=== PATIENT | female | born 1965 | race Caucasian/White ===

== ENCOUNTER → 2018-05-21 09:59 | Outpatient (CLI) | payer BC, SELFPAY ==
--- NOTE | 2018-05-21 10:02 | BI_ITS ---
MAMMOGRAPHY - BILATERAL SCREENING REASON FOR EXAM: Female, 53 years old. Routine annual screening examination. PERTINENT HISTORY: Non-contributory. TECHNIQUE: Digital bilateral breast papi (3D mammographic acquisition) in the CC and MLO projections. 2-D mediolateral oblique (MLO) and craniocaudad (CC) views of both breasts were obtained. CAD: Full Field Digital Mammography with Computer Added Detection was performed. COMPARISON: Comparison is made with prior examination dated December 31, 2016 and February 08, 2015. FINDINGS: Breast Composition: The breasts are extremely dense, which lowers the sensitivity of mammography. There are no dominant masses or suspicious calcifications. No other significant abnormalities are identified. There has been no significant change since the prior study. BI/SCREENING MAMM (CAD), BILAT IMPRESSION: Stable bilateral screening mammogram. Yearly follow-up mammogram recommended. (A) ASSESSMENT CATEGORY: BIRADS Category 1: Negative. A letter regarding these results will be sent to the patient by the facility within 30 days. Approximately 10% of breast cancers are not detected by mammography. A normal mammogram should not delay biopsy of a clinically suspicious abnormality. [id number] Electronically Signed: Yimi Abbasi MD at 10:40 EST Tel [phone], Service support ,
== END ==
PROVIDERS: Family Provider Family Medicine; PCP Family Medicine; Visit Provider Obstetrics & Gynecology
DX: Z12.31 Encounter for screening mammogram for malignant neoplasm of breast (principal)
CPT/HCPCS: 77063; 77067

== ENCOUNTER → 2020-08-25 15:08 | Outpatient (CLI) | payer BC, SELFPAY ==
[2020-08-25 17:56] LABS: Absolute Lymphocyte Count 1.37 X10^3/uL (0.83-4.51); Absolute Neutrophil Count 2.4 X10^3/uL (2.0-7.7); Basophil# 0.02 X10^3/uL; Basophil% 0.5 % (0-1); Eosinophil# 0.02 X10^3/uL; Eosinophils% 0.5 % (0-5); Hemoglobin 13.8 g/dL (12.0-15.0); Lymphocyte # 1.37 X10^3/ul (4.0); Lymphocyte % 31.4 % (19-41); Mean Corp Hgb Conc 32.9 g/dL (32-36); Mean Corpuscular Hgb 32.3 pg (27.0-32.0); Mean Corpuscular Volume 98.4 fL (81-99); Mean Platelet Vol. 11.1 fl (6.2-12.0); Monocyte# 0.52 X10^3/uL; Monocyte% 11.9 % (0-10); NRBC Flagged by Analyzer 0 % (0-5); Neutrophil # 2.43 X10^3/uL (2.7-7.7); Neutrophil % 55.7 % (47-70); Platelet Count 326 K/mm3 (150-450); RBC Distribution Width CV 11.9 % (11.6-14.6); RBC Distribution Width SD 42.7 fl (35.1-43.9); Red Blood Count 4.27 M/mm3 (4.2-5.4); White Blood Count 4.4 K/mm3 (4.4-11.0)
[2020-08-25 18:16] LABS: Thyroid Stim Hormone (TSH) 1.53 uIU/mL (0.358-3.74)
== END ==
PROVIDERS: PCP Family Medicine; Referring Provider Family Medicine; Visit Provider Family Medicine
DX: F32.9 Major depressive disorder, single episode, unspecified (principal)
CPT/HCPCS: 36415; 84443; 85025

== ENCOUNTER 2021-07-06 14:49 | Outpatient (CLI) | payer BC, SELFPAY ==
--- NOTE | 2021-07-06 14:59 | CT_ITS ---
EXAM: CT NECK WITH INTRAVENOUS CONTRAST : 1965 CLINICAL INDICATION: SUPRACLAVICULAR ADENOPATHY TECHNIQUE: Helically acquired images were obtained of the neck with intravenous contrast. This CT exam was performed using one or more of the following dose reduction techniques: automated exposure control, adjustment of the mA and/or kV according to patient size, and/or use of iterative reconstruction technique. This report was created using [employer] report generation technology. CONTRAST: IV 100mL Isovue-370 COMPARISON: None. FINDINGS: NASOPHARYNX: Unremarkable. SUPRAHYOID NECK: Unremarkable. Oropharynx, oral cavity, parapharyngeal space and retropharyngeal space are unremarkable. INFRAHYOID NECK: Unremarkable. The larynx, hypopharynx and supraglottis are unremarkable. SUBMANDIBULAR/PAROTID GLANDS: Unremarkable. Glands are normal in size. THYROID: Unremarkable. No enlarged or calcified nodules. BONES/JOINTS: No acute fracture. SOFT TISSUES: Unremarkable. VASCULATURE: No acute findings. LYMPH NODES: Enlarged left level 4 cervical lymph nodes are noted measuring greater than 1.5 cm in short axis diameter raising the possibility of metastatic disease or lymphoma. LUNG APICES: Unremarkable as visualized. CT/Soft Tissue Neck WITH Contrast IMPRESSION: Enlarged left level 4 cervical lymph nodes which may represent metastatic disease or lymphoma. Individualized dose optimization techniques were used for this CT. at 1539 Reported and signed by: Ben Norris MD Electronically Signed: Ben Norris MD at 15:37 EST Tel , Service support ,
== END 2021-07-06 23:59 | disposition short-term general hospital (02) ==
PROVIDERS: PCP Family Medicine; Referring Provider Family Medicine; Visit Provider Family Medicine
DX: R59.0 Localized enlarged lymph nodes (principal)
CPT/HCPCS: 70491; Q9967

== ENCOUNTER 2021-07-13 12:06 | Outpatient (CLI) | payer BC, SELFPAY ==
[2021-07-13 15:20] LABS: International Normalized Ratio 0.9; Prothrombin Time (Protime)PT. 11.9 SECONDS (11.7-14.9)
== END 2021-07-13 23:59 | disposition short-term general hospital (02) ==
LOC: MFPLAB 12:09
PROVIDERS: PCP Family Medicine; Referring Provider Family Medicine; Visit Provider Family Medicine
DX: R59.0 Localized enlarged lymph nodes (principal)
CPT/HCPCS: 36415; 85610; 85730

== ENCOUNTER 2021-07-19 09:09 | Outpatient (CLI) | payer BC, SELFPAY ==
[2021-07-19] VITALS (9 sets, daily range): BP systolic 92–146; BP diastolic 55–88; PULSE 69–85; RESP 13–24; TEMP 36.8; O2SAT 96–100; BMI 21.8
--- NOTE | 2021-07-19 | ASPIGT_PTH ---
PATIENT: AYDIN HUERTA LOC: CT U#:[id number] AGE/SX: 56/F ROOM: RE07/19/[address]: Dr. Jose Landaverde MD : 1965 BED: DIS: 07/19/2021 SPEC #: [id number] RECD: 07/19/21 11:15 STATUS: LARISA RUIZ #: [id number] CORWIN: 07/19/21 00:[address]: Jose Landaverde DEPT: SURGICAL PATHOLOGY RECD BY: Alfred You Tissues: Lymph node of upper extremity, NOS Procedures: FNA Specimen Adequacy Special Stain Group II Surgery Specimen Level IV Imprint (control) HEADER OPERATION: CT-guided biopsy of lymph node, left side PRE-OP DIAGNOSIS: Supraclavicular adenopathy TISSUE SUBMITTED: Lymph node 18-gauge core x5 MICROSCOPIC DIAGNOSIS Left supraclavicular mass, CT guided core biopsy: B-cell lymphoma. See Comment. AM/am 07/22/21 COMMENT STAT wet prep evaluation done by Dr. Ghosh in CT suite at time of biopsy by radiologist: Touch prep#1: Blood Touch prep#2: Lymphocytes present. Immunohistochemistry ([id number]) supports the above diagnosis. The neoplasm stains with Bcl2 and CD10 and favors a follicle center origin. FLOW analysis reveals a B-cell lymphoma without a specific phenotype (complete report viewable in EMR). MICROSCOPIC DESCRIPTION Slides are reviewed. GROSS DESCRIPTION Received is one container labeled with the patient's name and not further designated. The specimen consists of multiple minute fragments of light sánchez soft tissue that in aggregate measure 1 x <0.1 x <0.1 cm. The specimen is totally submitted in one cassette. / AM:jesse 07/19/2021 TC:0 CPT: 41287, 30368, 56566 ADDENDUM ADDENDUM ADDENDUM ADDENDUM ADDENDUM ADDENDUM ADDENDUM ADDENDUM ADDENDUM ADDENDUM 08/03/2021 12:03 ADDENDUM 08/03/2021 12:03 ADDENDUM 08/03/2021 12:03 ADDENDUM 08/03/2021 12:03 ADDENDUM 08/03/2021 12:03 This addendum is added to incorporate an outside pathology consultation report. The case was examined at [facility] (#[id number]) and the following diagnosis was rendered. Left supraclavicular mass, needle biopsy: Small sample of follicular lymphoma, consistent with follicular lymphoma, grade 1-2. Please see complete above mentioned consultation report in EMR
--- NOTE | 2021-07-19 | IMM_PTH ---
PATIENT: AYDIN HUERTA LOC: CT U#:[id number] AGE/SX: 56/F ROOM: RE07/19/[address]: Dr. Jose Landaverde MD : 1965 BED: DIS: 07/19/2021 SPEC #: [id number] RECD: 07/20/21 12:15 STATUS: LARISA REQ #: [id number] CORWIN: 07/19/21 00:[address]: Jose Landaverde DEPT: IMMUNOHISTOCHEMISTRY RECD BY: Judy Brownlee Tissues: Lymph node, NOS Procedures: BCL-2 (add) BCL-6 (add) CD10 (add) CD138 (add) CD15 (add) CD20 (add) CD23 (add) CD3 (add) CD30 (add) CD45 (add) CD5 (add) CD79A (add) CYCLIN (add) MUM1 (add) Pankeratin (initial) PHYSICIAN & INSTITUTION [place] [id number] SPECIMEN INFORMATION: Tissue Source: Lymph node, supraclavicular Clinical Info: Supraclavicular adenopathy Specimen Number: [id number] CPT code: 90215, 71120 x14 METHODOLOGY: Deparaffinized sections of prefer/formalin-fixed tissue or PAP/DQ stained slides are incubated with monoclonal/polyclonal antibodies/oligonucleotide probes. Localization is made via biotin free immunoperoxidase method. Appropriate controls are performed and reacted as expected. Results on target cell population are indicated in the following table: RESULTS: ANTIBODY / CLONE RESULT AE1-3 (AE1/AE3/PCK26) negative CD3 (PS1) positive CD5 (SP10) positive CD20 (L26) positive CD45 (RP2/18) positive CD79a (11E3) positive CD10 (56C6) positive BCL-2 (bcl-2/100/D5) positive BCL-6 (ZA075H/A8) negative Cyclin D1/BCL-1 (SP4) negative MUM1 (MRQ-43) negative CD30 (Haja-H2) negative CD15 (MMA) negative CD23 (1B12) negative CD138 (B-A38) negative These tests were developed and their performance characteristics determined by [facility]. They may not have been cleared or approved by the U.S. Food and Drug Administration. The FDA has determined that such clearance or approval is not necessary. The above immunohistochemical/dualISH markers are ordered and reviewed by the Pathologist. INTERPRETATION: Lymph node, supraclavicular, Ct-guided biopsy: B-cell lymphoma. See comment Comment: CD10 and BCL2 positivity favor a follicular lymphoma AM:cc 07/22/21
--- NOTE | 2021-07-19 09:13 | CT_ITS ---
PROCEDURE: CT GUIDED biopsy of the left supraclavicular lymph node. DATE: 07/19/2021. INDICATION: Female, 56 years old. Left supraclavicular lymph node. PHYSICIAN: Yimi Abbasi M.D. RADIATION DOSAGE (If Supplied By Facility): CTDIvol = ( 20 ) mGy, DLP = ( 341.13 ) mGycm. Individualized dose optimization techniques were utilized. PROCEDURE: The risks, benefits, and alternatives to the procedure were explained to the patient. The specific risk of hemorrhage requiring further treatment or intervention was detailed and accepted. Follow-up instructions were discussed with the patient as well. Written informed consent was obtained. The patient was brought into the CT suite and placed in the supine position. . An appropriate entry site was identified. The overlying skin was prepped and draped in the usual sterile fashion. 1% lidocaine was administered subcutaneously for local anesthesia. Conscious sedation was performed. Conscious sedation was started at 10:21 AM and terminated at 10:49 AM. The patient was independently monitored by the department nurse. The patient received 1 mg of VERSED and 25 mcg of FENTANYL intravenously. Under CT guidance, a total of 5 passes were performed utilizing a 18-gauge core biopsy needle. The specimens were then placed in the appropriate fluid and transported to the laboratory for analysis. Hemostasis was obtained. The patient tolerated the procedure well without immediate complications. CT/Biopsy/Inj or Needle Placement IMPRESSION: Successful CT guided biopsy of left supraclavicular lymph node, as described above. The conscious sedation protocol was followed. Electronically Signed: Yimi Abbasi MD at 11:16 EST ,
[2021-07-19] MEDS: Midazolam 2 MG/2 ML Syringe IV (10:21)
[2021-07-19] MEDS: fentaNYL 100 MCG/2 ML Ampul IV (10:21)
[2021-07-19] MEDS: Lidocaine 2% (20 ml mdv) 20 ML Vial INFILT (10:30)
== END 2021-07-19 23:59 | disposition home or self-care (01) ==
PROVIDERS: PCP Family Medicine; Referring Provider Family Medicine; Visit Provider Family Medicine
DX: C85.11 Unspecified B-cell lymphoma, lymph nodes of head, face, and neck (principal); R59.0 Localized enlarged lymph nodes
CPT/HCPCS: 38505; 77012; 88172; 88305; 88307; 88313; 88341; 88342; 99156; J7040; A4216

== ENCOUNTER → 2022-06-07 | Outpatient (CLI) | payer BC, SELFPAY ==
--- NOTE | 2022-06-07 13:54 | MRI_ITS ---
EXAM: MR LEFT LOWER EXTREMITY WITHOUT INTRAVENOUS CONTRAST, FOOT CLINICAL INDICATION: LEFT FOOT CAPSULITIS 2ND MTP JOINT TECHNIQUE: Multiplanar and multisequence MR images of the left forefoot without intravenous contrast. Magnetic field strength 1.5 T. This report was created using [employer] report generation technology. COMPARISON: None. FINDINGS: MUSCLES: Unremarkable. No edema or myositis. FLUID: Unremarkable. No joint effusion. PLANTAR FASCIA: Unremarkable. Intact. BONES/JOINTS: Near complete dorsal dislocation of the proximal phalanx of the second toe at the second metatarsal phalangeal joint. Small amount of fluid within the joint space. No fracture. No bone marrow edema. OTHER SOFT TISSUES: Unremarkable. MRI/Lower Ext/No Jt/w/o IMPRESSION: Near complete dorsal dislocation of the proximal phalanx of the second toe at the second metatarsal phalangeal joint with small joint effusion. Electronically Signed: Kirby Bazan MD at 2:18 EST ,
== END | disposition home or self-care (01) ==
LOC: MRI 13:51
PROVIDERS: PCP Family Medicine; Referring Provider Podiatrist; Visit Provider Podiatrist
DX: M25.475 Effusion, left foot (principal); M77.9 Enthesopathy, unspecified
CPT/HCPCS: 73718

== ENCOUNTER 2022-09-22 06:01 | Day surgery (SDC) | payer BC, SELFPAY ==
[2022-09-22 06:21] VITALS: BP 111/66; PULSE 73; RESP 16; TEMP 36.6; O2SAT 99; BMI 21.4
[2022-09-22] MEDS: Lactated Ringers 1,000 ML 15 ML IV (06:28)
--- NOTE | 2022-09-22 07:15 | RAD_ITS ---
STUDY: X-RAY - LEFT FOOT CLINICAL: Female, 57 years old. PAIN TECHNIQUE: 3 view(s) of the foot. COMPARISON: [December 17, 2015 FINDINGS: Normal talus, calcaneus, and tarsal bones. Normal visualized subtalar, talonavicular, calcaneocuboid, tarsal and tarsometatarsal articulations. Normal metatarsi. Normal metatarsophalangeal joint of the great toe. Normal tibial and fibular sesamoid bones. Normal interphalangeal joint of the great toe. Normal phalanges of the great toe. Normal second through fifth metatarsophalangeal joints. Normal interphalangeal joints and phalanges of the lesser toes. The soft tissue structures are unremarkable. Hardware transfixion second phalanges, second metatarsal head, and first and second tarsometatarsal joints. RAD/Foot 2 Views IMPRESSION: These correlate with clinical service Electronically Signed: Kulwant Hummel MD at 20:31 EDT ,
--- NOTE | 2022-09-22 07:30 | BUN_PTH ---
PATIENT: AYDIN HUERTA LOC: [facility] [place] U#:[id number] AGE/SX: 57/F ROOM: RE09/22/[address]: Dr. Benson Sierra DPM : 1965 BED: DIS: 09/22/2022 SPEC #: [id number] RECD: 09/22/22 12:50 STATUS: LARISA JOSEPH #: [id number] CORWIN: 09/22/22 07:[address]: Benson Sierra DEPT: SURGICAL PATHOLOGY RECD BY: Karyna Goldstein ENTERED: 09/22/22 13:04 SP TYPE: BUNION MELVA DR: Dr. Jose Landaverde MD Tissues: Bony tissue, NOS Procedures: Decalcification bone/plaque Surgery Specimen Level III HEADER OPERATION: First transmetatarsal Lap[place]us arthrodesis bunionectomy PRE-OP DIAGNOSIS: Left foot pain TISSUE SUBMITTED: Left bunion MICROSCOPIC DIAGNOSIS Left foot bone bunion, excision: Osseocartilaginous fragment with focal reparative and reactive change consistent with bunion. AM:jesse 09/27/2022 MICROSCOPIC DESCRIPTION Slides are reviewed. GROSS DESCRIPTION Received in fixative is one container labeled with the patient's name and designated left shalini. The specimen consists of a piece of bone measuring 2.0 x 1.5 x 0.3 cm. The entire specimen is submitted in one cassette after decalcification. / EUNICE:jesse 09/22/2022 TC:5 CPT: 90174, 44215
--- NOTE | 2022-09-22 07:32 | DCINST_ITS ---
Discharge Instructions Diet Discharge Diet: Light diet - advance as tolerated Activity Discharge Activity: Use Walker and Use Crutches Weight Bearing Status: No weight bearing (No weightbearing left foot.) Keep extremity elevated above heart level: Left Leg (Keep left foot elevated for at least 50 minutes of every hour.) Dressing / Incision Call your doctor if your incision/area has: Sudden Increased Bleeding and Foul Smelling Discharge Call your doctor if you observe: Fever of 101 or Higher, Shortness of breath, Chest pain, Increased palpitations (irregular heartbeat), Calf discomfort and Uncontrolled pain Change Dressing in: do not change dressing Remove Dressing in: do not remove dressing Cleanse incision/area with: Keep Dressing Clean & Dry Follow Up Care Please Follow Up With: Benson Sierra DPM When: 1 week, sooner if needed. Also ok to take Ibuprofen for pain: take 400mg by mouth every 6 hours as needed for pain. Test Results: Test results from this visit will be discussed in further detail at your follow- up appointment, if applicable. Discharge Plan Admission Attending Provider: Benson Sierra Primary Care Provider: Kushal Landaverde Discharge Orders/Prescriptions Prescriptions: New oxycodone-acetaminophen [Percocet] 5-325 mg tablet 1 - 2 tab PO Q6H PRN (Reason: pain) 5 Days Qty: 24 0RF No Action duloxetine [Cymbalta] 20 mg capsule,delayed release(DR/EC) 20 mg PO DAILY cholecalciferol (vitamin D3) [Vitamin D3] 25 mcg (1,000 unit) Capsule 25 mcg PO DAILY [place] 3 Capsule 1,000 mg PO DAILY Vitamin B-12 1,000 mcg Lozenge 1,000 mcg PO QODAY calcium carbonate [Calcium 600] 600 mg calcium (1,500 mg) Tablet 600 mg PO DAILY ciprofloxacin HCl [Cipro] 500 mg Tablet 500 mg PO BID Referrals / Follow Up: Kushal Landaverde MD [Primary Care Provider] - Disposition Disposition (needs filled in before D/C Order can be placed): Home, Self Care
[2022-09-22] MEDS: Cefazolin 2 GM in 0.9% Normal Saline 100 ML IV (07:40)
[2022-09-22] MEDS: Lidocaine 1% /Epi 1:100 (20ml) 20 ML Vial (07:45)
--- NOTE | 2022-09-22 10:52 | OP.PCM_ITS ---
Report of Operation Date of Procedure: 09/22/22 Pre-Operative Diagnosis: Hallux valgus bunion left Hammer toe left 2nd toe Deformed 2nd metatarsal, left Torn 2nd metatarsal phalangeal plantar plate, left Post-Operative Diagnosis: Same Surgery/Procedure Performed:: 1st tarsometatarsal Lapidus fusion bunionectomy, left 2nd metatarsal osteotomy left foot 2nd toe fusion left Repair of 2nd metatarsal phalangeal joint plantar plate and flexor tendon, left Surgeon: Benson Sierra gear cutting machine set up operator: Alysa Type of Anesthesia: Local and MAC Specimen's removed: Bunion from left 1st metatarsal sent to pathology Estimated Blood Loss (mL): 20mL Description of Procedure: Indications: This is a 57 year old chronic left foot pain despite nonsurgical treatment. Since symptoms persist despite nonsurgical care, we discussed surgical options. Reviewed the procedures, possible benefits vs risks, goals, expectations, and estimated healing time. She expressed understanding and agreement. No guarantees were given nor implied. No warranties were given. Patient freely signed the consent forms and elected to proceed forward with the procedures. Operative procedure: She was brought back into the operating room and was placed on the operating room table in the supine position. A timeout was performed and the patient was properly identified and the surgical plan was confirmed. The patient did receive 2 g of IV Ancef for antibiotic prophylaxis. The patient received general anesthesia per the anesthesia team. A well padded pneumatic tourniquet was applied around the left ankle. A total of 10mL of 0.25% Bupivacaine plain was given as a local nerve block around the left foot 1st and 2nd rays, and 10mL of 1% Lidocaine with 1:100,000 epi around the 1st ray after the overlying skin was cleansed with 70% Isopropyl alcohol. The left foot was scrubbed, prepped and draped in the usual aseptic fashion. Further attention was directed to the left foot. There was noted to be positive dorsal drawer to the 2nd metatarsal phalangeal joint. The 2nd toe was contracted and was a hammer toe. The 1st toe was laterally deviated and there was significant hallux valgus bunion. The left foot was exsanguinated using an Esmarch bandage and the left ankle pneumatic tourniquet was inflated to 250mmHg. Left 1st tarsometatarsal lapidus bunionectomy: A linear longitudinal skin incision was medially along the medial 1st metatarsal cuneiform joint as well as overlying the 1st metatarsal phalangeal joint. This was done using a 15 blade. Careful dissection was completed down to the capsule of the 1st metatarsal cuneiform joint, and it was incised using a 15 blade and partially reflected exposing the joint surfaces. All cartilage from the 1st metatarsal cuneiform joint surfaces (posterior aspect of the base of the 1st metatarsal and the anterior aspect of the medial cuneiform) were debrided away and was removed down to bleeding bone. This was done with a curette as well as a powered rasp, being sure not to cause osteonecrosis. The site was flushed out with copious amounts of normal saline solution. The surfaces were fenestrated using a powered drill to aid fusion. The 1st metatarsal was reduced into normal position. The site was fixated use rigid open reduction internal fixation, using 1 Arthrex plantar plate, using a total of 3 locking screws, 1 cancellous screw, and 1 nonlocking compression screw across the fusion site. An additional 1 x 3.5mm FT Arthrex threaded screw was first placed across the fusion site for fixation, this was also done using rigid open reduction internal fixation technique. There was noted to be intercuneiform instability so an addtional 3.5mm FT screw was placed from the 1st cuneiform to the base of the 2nd metatarsal using rigid open reduction internal fixation technique. There was very good compression and bone to bone contract with the prepped fusion site, in good alignment. The fusion site was rigid and very stable. This was checked and confirmed with intraoperative fluoroscopy. There was noted to be a residual medial and dorsal eminence to the 1st metatarsal head. Careful dissection was completed down to the 1st metatarsal phalangeal joint capsule and it was incised, it was partially reflected. The medial and dorsal eminence was resected using a powered sagittal saw removing the nonviable cartilage from these sites in process, the resected bone was sent to pathology. Also, there was noted to be significant contracture of the lateral 1st metatarsal phalangeal joint as well as the adductor hallucis tendon which was preventing proper reduction of the deformity. Therefore a small skin incision was overlying the dorsal lateral 1st metatarsal phalangeal joint. Dissection was completed down to the lateral capsule and adductor hallucis tendon which were released using a 15 blade. There was was now normal range of motion to the 1st metatarsal phalangeal joint. There was smooth normal gliding range of motion of the 1st metatarsal phalangeal joint at this time with normal alignment. The joint was in good alignment. The surgical site was flushed out with copious amounts of normal saline solution. Tissues were healthy and viable at this time. The subcutaneous tissue layers were reapproximated using?3-0 Vicryl and the skin was reapproximated using 4-0 Monocryl. Left 2nd metatarsal osteotomy: A curvilinear skin incision was made overlying the dorsal 2nd metatarsal phalangeal joint using a 15 scalpel blade. Careful dissection was completed down through the subcutaneous tissue layer. The extensor tendons were identified and were retracted safely out of the way. The dorsal 2nd metatarsal phalangeal joint capsule was incised with a 15 blade. The metatarsal head was visualized. There was noted to be significant adhesions to the plantar aspect of the joint at the level of the plantar plate, with lateral plantar plate tear. The 2nd metatarsal was deformed being long, but otherwise the joint did appear to be healthy and viable. A presley osteotomy was completed through the distal 2nd metatarsal using a powered sagittal saw, being sure to make the osteotomy parallel to the weightbearing surface. The 2nd metatarsal head was gently placed in a more proximal position and the osteotomy site was fixated using two Arthrex snap off screws using rigid open reduction internal fixation technique. There was excellent stability and fixation to the osteotomy site. Intraoperative fluoroscopy was used to confirmed proper positioning and fixation. The site was flushed out with copious amounts of normal saline solution. The joint capsule was reapproximated using 3-0 Vicryl. The subcutaneous tissue was reapproximated using 3-0 Vicryl and the skin was reapproximated using 4-0 Monocryl. Left 2nd metatarsal phalangeal joint plantar plate repair: A linear skin incision was made overlying the plantar 2nd metatarsal phalangeal joint using a 15 scalpel blade. Careful dissection was completed down through the subcutaneous tissue layer. The flexor tendon sheath was identified, there were some adhesions noted. The sheath was incised carefully being sure not to incision the tendons, and the adhesions of the flexor tendons were released (tenolysis). Otherwise the flexor tendons appeared healthy and viable, and they were retracted safely out of the way. The plantar plate was visualized and there was noted to be thickening, there was noted to be a tear of the lateral plantar plate. There was instability of the plantar plate when stressing it. The plantar plate edges were debrided and the plantar plate was repaired using 2-0 PFiberWire via a pants over vest suturing technique. This was repair holding the 2nd toe in a slight plantarflexed position. At this time there was noted to be negative dorsal drawer test, and now there was excellent stability present to the plantar plate. Alignment of the joint was anatomic, and position of the 2nd toe was rectus in all planes when loading the foot. The site was flushed out with copious amounts of normal saline solution. The joint capsule was reapproximated using 3-0 Vicryl. The subcutaneous tissue was reapproximated using 3-0 Vicryl and the skin was reapproximated using 3-0 Nylon. Left 2nd toe arthrodesis: Attention was directed to the toe. A dorsal linear longitudinal incision was made over the proximal interphalangeal joint (PIPJ) of the toe. An incision was made longitudinally to the extensor digitorum longus tendon and split down the middle, leaving the ends intact, this was done with a 15 blade. The dorsal PIPJ joint capsule was incised with a 15 blade. The cartilage from the head of the proximal phalanx was resected using a powered sagittal saw, and cartilage from the base of the middle phalanx was resected using a sagittal saw. The site was flushed out with copious amounts of normal saline solution. An Arthrex 2.5mm FT compression screw was placed through the phalanges of the toe holding the toe in rectus position. This was confirmed with intra operative fluoroscopy. The site was again flushed out with copious amounts of normal saline solution. The skin was reapproximated using 4-0 Monocryl. The pneumatic tourniquet was deflated (total tourniquet time was 130 minutes, of note it was deflated at 90 minutes, and was down for 10 minutes, then reinflated for the rest of the time after being elevated for exsanguination), and there was immediate return of warmth and perfusion to the foot, including to all 5 toes. CFT < 2 seconds to all toes. A dressing was applied which consisted of cavilon to incision sites and steristrips, then Betadine soaked adaptic, 4x4 gauze, Kerlix and amber bandage. Of note all vital structures, including all vital neurovascular structures were properly identified, they were protected and retracted as necessary throughout the above procedures. Hemostasis was achieved prior to dressing application. The patient tolerated the above procedure well and the anesthesia well with no complications. The patient was transported from the operating room to the recovery room with vital signs stable and in good condition. Post operative orders were placed, post operative instructions were reviewed with the patient several times pre operatively (today and pre op visit in office) - no weightbearing left foot, keep left foot elevated for at least 50 minutes of ev viktoria hour, keep dressing clean, dry and intact, follow up with me within 1 week in office - sooner if needed. This was typed out and these written instructions were also reviewed with patient and given to patient to take home. Percocet 5/325mg PO 1-2 tabs q 6 hours, and also can take Ibuprofen 400mg PO q 6 hours to help with post op pain control. This was discussed with patient as well. OARRS was checked prior to prescribing. A surgical shoe was also fitted and dispensed for her for left foot to help keep the foot protected. Grafts/Implants Used: Arthrex lapidus plantar plate and screws, Ft screws, fiberwire Complications None
[2022-09-22 10:56] VITALS: BP 111/66; BP 113/65; PULSE 78; RESP 16; TEMP 36.2; O2SAT 93
[2022-09-22 11:00] VITALS: BP 107/61; BP 111/66; PULSE 70; RESP 16; O2SAT 98
--- NOTE | 2022-09-22 11:10 | RAD_ITS ---
STUDY: X-RAY - LEFT FOOT CLINICAL: Female, 57 years old. post op TECHNIQUE: 3 view(s) of the foot. COMPARISON: Left foot December 17, 2015 FINDINGS: Screw transfixes the second phalanges, second metatarsal head and first and second tarsometatarsal joints. Normal talus, calcaneus, and tarsal bones. Normal visualized subtalar, talonavicular, calcaneocuboid, tarsal and tarsometatarsal articulations. Normal metatarsi. Normal metatarsophalangeal joint of the great toe. Normal tibial and fibular sesamoid bones. Normal interphalangeal joint of the great toe. Normal phalanges of the great toe. Normal second through fifth metatarsophalangeal joints. Normal interphalangeal joints and phalanges of the lesser toes. Soft tissue swelling. Possible subcutaneous gas. RAD/Foot min 3 Views IMPRESSION: Possible subcutaneous gas consistent with recent surgery and/or infection. Clinical correlation required. Postop changes as above. Electronically Signed: Kulwant Hummel MD at 20:34 EDT ,
[2022-09-22 11:15] VITALS: BP 105/63; BP 111/66; PULSE 78; RESP 16; O2SAT 99
[2022-09-22 11:30] VITALS: BP 104/64; BP 111/66; PULSE 74; RESP 16; TEMP 36.1; O2SAT 100
[2022-09-22 12:47] VITALS: BP 100/60; BP 111/66; PULSE 70; RESP 16; TEMP 36.8; O2SAT 98
== END 2022-09-22 12:58 | disposition home or self-care (01) ==
LOC: SDC 06:02 → AC 06:06
PROVIDERS: PCP Family Medicine; Referring Provider Podiatrist; Visit Provider Podiatrist
PROC: (CPT 28292; principal; 2022-09-22 07:15)
DX: M20.12 Hallux valgus (acquired), left foot (principal); M20.42 Other hammer toe(s) (acquired), left foot
CPT/HCPCS: 28740; 28485; 28308; 28297; 73620; 73630; 76000; 88304; 88311; C1713; J7120; J2405

== ENCOUNTER → 2023-03-07 | Outpatient (CLI) | payer BC, SELFPAY | END | disposition home or self-care (01) | LOC: LABSPEC 15:21 | PROVIDERS: PCP Family Medicine; Referring Provider Family Medicine; Visit Provider Family Medicine | DX: N39.0 Urinary tract infection, site not specified (principal) | CPT/HCPCS: 87077; 87086; 87088; 87186 ==

== ENCOUNTER → 2023-05-21 | Outpatient (CLI) | payer BC, SELFPAY ==
--- NOTE | 2023-05-21 13:14 | BI_ITS ---
MAMMOGRAPHY - BILATERAL SCREENING REASON FOR EXAM: Female, 58 years old. Routine annual screening examination. PERTINENT HISTORY: Non-contributory. TECHNIQUE: Digital bilateral breast amber (3D mammographic acquisition) in the CC and MLO projections. 2-D mediolateral oblique (MLO) and craniocaudad (CC) views of both breasts were obtained. CAD: Full Field Digital Mammography with Computer Added Detection was performed. COMPARISON: Comparison is made with prior study dated May 21, 2018 and July 03, 2016. FINDINGS: Breast Composition: The breasts are extremely dense, which lowers the sensitivity of mammography. There are no dominant masses or suspicious calcifications. A tissue clip marker is seen in the deep upper lateral aspect of the left breast. No other significant abnormalities are identified. There has been no significant change since the prior study. BI/SCRN MAMM (CAD)W/AMBER BILAT IMPRESSION: Stable bilateral screening mammogram. Yearly follow-up mammogram recommended. (A) ASSESSMENT CATEGORY: BIRADS Category 1: Negative. A letter regarding these results will be sent to the patient by the facility within 30 days. Approximately 10% of breast cancers are not detected by mammography. A normal mammogram should not delay biopsy of a clinically suspicious abnormality. [id number] Electronically Signed: Yimi Abbasi MD at 14:21 EST ,
== END | disposition home or self-care (01) ==
LOC: OPBD 13:13
PROVIDERS: PCP Family Medicine; Referring Provider Family Medicine; Visit Provider Family Medicine
DX: Z00.00 Encounter for general adult medical examination without abnormal findings (principal); Z12.31 Encounter for screening mammogram for malignant neoplasm of breast
CPT/HCPCS: 77063; 77067

== ENCOUNTER → 2023-05-29 | Outpatient (CLI) | payer BC, SELFPAY ==
--- NOTE | 2023-05-29 16:00 | CT_ITS ---
EXAM: CT LEFT LOWER EXTREMITY WITHOUT INTRAVENOUS CONTRAST, FOOT CLINICAL INDICATION: Pain due to internal orthopedic prosthetic devices, implants and TECHNIQUE: Helically acquired images were obtained of the left foot without intravenous contrast. CTDIvol = ( 15.35 ) mGy, DLP = ( 393.36 ) mGycm This CT exam was performed using one or more of the following dose reduction techniques: automated exposure control, adjustment of the mA and/or kV according to patient size, and/or use of iterative reconstruction technique. COMPARISON: No relevant prior studies available. FINDINGS: BONES/JOINTS: Surgical fixation hardware across the first and second tarsometatarsal articulations. No hardware complication. Preservation of the joint space. No sclerotic or destructive changes. No acute or healing fracture or malalignment. SOFT TISSUES: Unremarkable. No radiopaque foreign bodies. CT/Extremity Lower without Contra IMPRESSION: No gross hardware convocations involving the medial forefoot. Electronically Signed: Duarte Ventura MD at 3:57 EST ,
== END | disposition home or self-care (01) ==
LOC: CT 15:52
PROVIDERS: PCP Family Medicine; Referring Provider Podiatrist; Visit Provider Podiatrist
DX: T84.84XD Pain due to internal orthopedic prosthetic devices, implants and grafts, subsequent encounter (principal); M79.672 Pain in left foot
CPT/HCPCS: 73700

== ENCOUNTER 2023-07-17 11:24 | Outpatient (RCR) | payer BC, SELFPAY ==
--- NOTE | 2023-07-17 15:05 | HP.PTEVAL ---
Patient's Visit Information Visit Information Visit Information: AYDIN HUERTA is a 58 year old F referred to Physical Therapy by Dr. Benson Candelaria DPM with a diagnosis of L TIGHT ACHILLES TENDON. Date of Evaluation: 07/17/23 Physical Therapist: Katherine Yeboah PT, Cert MDT Visit Plan Frequency: 1x/Week Duration: 1 Week Plan: EVALUATE AFTER SURGERY AT PATIENTS REQUEST. Subjective Subjective: Work/Leisure: WORKING [employer]ESS [employer] ABOUT 20 HOURS A WEEK. Present symptoms: TIGHTNESS L ACHILLES. PAIN ON THE TOP OF LEFT FOOT, ACROSS TOP OF TOES AND IN GREAT TOE. NO LEFT HEEL PAIN. CATCHING TOES WHEN WALKING INTERMITTENTLY AND HARDER TO ARCHIVIST POLITICAL HISTORY TOES ON LEFT THAN RIGHT. PATIENT RELATES HER FOOT PAIN TO A DIFFERENT PROBLEM AND HAS SURGERY SCHEDULED 08/03/23 TO HAVE THE HARDWARE REMOVED FROM HER FOOT THAT WAS PLACED DURING SURGERY SEPTEMBER 22 2022. Present since: SOON STARTED WALKING WITHOUT THE BOOT ABOUT 10 TO 12 WKS AFTER SEPTEMBER 2022 FOOT SURGERY. MAYBE DECEMBER 2022 WHEN STARTED GETTING MOBILITY BACK (ABOUT 6 MONTHS AGO). Pain Scale: N/A Is it getting better, worse or staying the same: STAYING THE SAME Commenced as a result of: FOOT BEING IMMOBILIZED FOR SO LONG AND NOT WALKING NORMALLY FOR PROLONGED PERIOD. Symptoms at onset: CATCHING TOES WHEN WALKING. Worse: UNKNOWN Better: NOTHING. Previous history/Previous treatment: NO Treatment this episode: TRIED ABOUT 1-2 WEEKS OF ACTIVELY FLEXING FOOT AND HOLDING IT BUT AT THE TIME WAS NOT ALLOWED TO PUT ANY PRESSURE ON THE BALL OF THE FOOT. Gait: NOT LIMPING WITH WALKING BUT LIMPS WITH JOGGING AND HURRYING. NOT JOGGING FOR EX BUT JUST TESTS IT OUT. Accidents: NO PMH/Recent major surgery: Non-Hodkins lymphoma - treated with chemo and in remission now. OTHER: PATIENT DENIES ANY CURRENT RESTRICTION FROM PAST L FOOT SURGERY OR DUE TO UPCOMING FOOT SURGERY. Objective Objective: THIS PATIENT AMBULATES INDEP'LY INTO PT WITHOUT ANY ASSISTIVE DEVICES OR GROSS DEVIATIONS NOTED EXCEPT DECREASED L FOOT DORSIFLEXION DURING HEEL STRIKE. EXAM IS SOMEWHAT LIMITED BY FOREFOOT PAIN TODAY THAT PATIENT REPORTS SHE IS NOT HERE FOR AND THAT SHE IS GOING TO HAVE SURGERY FOR IN ABOUT 2 WEEKS. RONNI LE LIGHT TOUCH SENSATION IS GROSSLY INTACT AND SYMMETRICAL EXCEPT L FOREFOOT (SPECIFIC TESTING NO DONE). RONNI LE ROM IS WFL EXCEPT L ANKLE DORSI FLEXION MEASURING AT +3 DEG COMPARED TO + 10 DEG ON THE RIGHT. GENTLE OVER-PRESSURE WAS APPLIED AT MID FOOT STOPPING WHEN FOREFOOT PAIN PROVOKED AND 1 TO 2 MORE DEGREES OF ROM ACHIEVED WITH REPORTS OF STRETCHING FEELING IN CALF. PATIENT HAS GOOD STRENGTH OF L ANKLE ALL PLANES GRADED AT LEAST 4/5 TESTED MID-RANGE AND STOPPING WHEN FOREFOOT PAIN PROVOKED. PATIENT UNABLE TO SLS ON L LE WITHOUT PROVOKING FOREFOOT PAIN. DISCUSSED TREATMENT PLAN OF CARE THAT WOULD INCLUDE INITIALLY CALF STRETCHING AND THEN FUNCTIONAL STRENGTHENING THROUGH NEWLY GAINED ROM. AT THIS POINT PATIENT DECIDED SHE WOULD LIKE TO WAIT UNTIL AFTER SHE RECOVERS FROM HER UPCOMING SURGERY TO DO THERAPY. THIS PT ENCOURAGED HER TO DISCUSS THE PRO'S AND CON'S OF WAITING WITH DR. CANDELARIA AND SHE DECIDED TO GO AHEAD AND DEFER TREATMENT UNTIL AFTER SURGERY AND HAVE ANOTHER EVALUATION AT THAT TIME. Balance/Special Test Scores Lower Extremity Functional Score: 48 Anticipated Interventions Text: Thank you for the opportunity to evaluate your patient. For Medicare and Medicare HMO plans, please review the plan of care and approve it. It will need to be FAXED BACK to us at [phone] for Medicare purposes. For Medicare only, by signing this I certify the plan of care. Please let me know if there are questions or concerns regarding this plan of care. Physician Signature: Date:
--- NOTE | 2023-09-24 14:26 | HP.PT.NRP ---
Patient Information Patient Information: AYDIN HUERTA was seen in my office for initial evaluation on 07/17/23. The following Plan of Care was established for this patient: POC Established Initial Frequency: 1x/Week Initial Duration: 1 Week Last Seen Last Seen: This patient was last seen in our office 07/17/23. Pertinent comments regarding their Physical therapy will appear below: See Initial Evaluation Report. At this point I will be discontinuing this patient from physical therapy. I would be happy to see this patient again in the future if found appropriate by the physician. Thank you! Katherine Yeboah, PT, Cert MDT Balance/Gait/Functional tests Balance/Special Test Scores Lower Extremity Functional Score: 48
== END 2023-07-17 19:00 | disposition home or self-care (01) ==
LOC: PT 11:24
PROVIDERS: PCP Family Medicine; Referring Provider Podiatrist; Visit Provider Podiatrist
DX: M76.61 Achilles tendinitis, right leg (principal)
CPT/HCPCS: 97161

== ENCOUNTER → 2023-07-19 | Outpatient (CLI) | payer BC, SELFPAY ==
--- NOTE | 2023-07-19 09:34 | BD_ITS ---
STUDY: DUAL ENERGY X-RAY ABSORPTIOMETRY / DXA REASON FOR EXAM: Female, 58 years old. V76.12ScreeningBONE DENSITY REASON FOR EXAM TECHNIQUE: Bone Mineral Density (BMD) measurements of lumbar spine and bilateral hips were obtained. COMPARISON: None. FINDINGS: Lumbar Spine (L1-L4): g/cm2 (0.746) / T-score (-2.7) / Z-score (-1.3) Findings are suggestive of osteoporosis with a high fracture risk. Left Femur Total: g/cm2 (0.672) / T-score (-2.2) / Z-score (-1.3) Left Femoral Neck: g/cm2 (0.599) / T-score (-2.3) / Z-score (-1.0) Right Femur Total: g/cm2 (0.671) / T-score (-2.2) / Z-score (-1.3) Right Femoral Neck: g/cm2 (0.612) / T-score (-2.1) / Z-score (-0.8) BD/Dexa Bone Density Study IMPRESSION: The patient is considered osteoporotic as outlined below according to World Dio Organization (WHO) criteria with a high fracture risk. Reference Information: The T-score is the number of standard deviations above or below the standard which is normal for young adults at their peak bone mineral density. The World Health Organization (WHO) interprets the T-scores as follows: Above -1 Normal bone density Between -1 and -2.5 Osteopenia Equal to / or below -2.5 Osteoporosis As a practical clinical guideline, osteopenia may be graded as follows: Mild -1 through -1.5 Moderate -1.6 through -2.0 Severe -2.1 through -2.4 The Z-score is the number of standard deviations above or below age-matched controls. A Z-score of less than -1.5 would be considered abnormal. References: 1. NIH Osteoporosis and Related Bone Diseases www osteo.org 2. International Society for Clinical Densitometry www iscd.org 3. National Osteoporosis Foundation www nof.org Electronically Signed: Yimi Abbasi MD at 8:56 EST ,
== END | disposition home or self-care (01) ==
PROVIDERS: PCP Family Medicine; Referring Provider Family Medicine; Visit Provider Family Medicine
DX: Z13.820 Encounter for screening for osteoporosis (principal)
CPT/HCPCS: 77080

== ENCOUNTER 2023-08-03 07:27 | Day surgery (SDC) | payer BC, SELFPAY ==
[2023-08-03] VITALS (8 sets, daily range): BP systolic 107–124; BP diastolic 62–75; PULSE 68–78; RESP 14–18; TEMP 36.4–36.6; O2SAT 99–100; BMI 21.6
--- OUTSIDE RECORDS SUMMARY | 2023-08-03 07:43 | XMS RPT_ITS | CCD ---
Author Name Unknown Address [address] [place] [address] Organization [facility] Care Team Providers Care Respiratory Manager Name Role Phone Saima SIMMS, Sergio Underwood Primary Care Provider KARO HILL Referring Unavailable SERGIO LANDAVERDE Primary Care Unavailabl KARO Butts Referring Unavailable SERGIO LANDAVERDE Primary Care Unavailabl KARO Butts Referring Unavailable SERGIO LANDAVERDE Primary Care UnavailSERGIO Gaston Primary Care UnavailKARO Dias Attending Unavailable SERGIO LANDAVERDE Primary Care Unavailabl KARO Butts Referring Unavailable SERGIO LANDAVERDE Primary Care Unavailabl KARO Butts Attending Unavailable SERGIO LANDAVERDE Primary Care UnavailKARO Dias Referring Unavailable SERGIO LANDAVERDE Primary Care UnavailKARO Dias Attending Unavailable SERGIO LANDAVERDE Primary [facility] Mino[facility] mesfin Allergies Allergy Classification Reported Allergen(s) Allergy Type Date of Onset Reaction(s) Facility (20 sources) Sulfamethoxazole / Trimethoprim; Translations: [SULFAMETHOXAZOLE-TRI METHOPRIM] Drug Allergy 0 [facility] Medications Current Medications Medication Drug Class(es) Dates Sig (Normalized) Sig (Original) acetaminophen 325 mg oral tablet (1 source) Start: 12-29-2021 End: 01-01-2022 acetaminophen 650 mg tab(s) (TYLENOL) acyclovir 400 mg oral tablet (20 sources) Herpesvirus Nucleoside Analog DNA Polymerase Inhibitor, Herpes Simplex Virus Nucleoside Analog DNA Polymerase Inhibitor, Herpes Zoster Virus Nucleoside Analog DNA Polymerase Inhibitor Start: 08-10-2021 End: 08-10-2022 take 1 tablet by mouth every twelve hours acyclovir (ZOVIRAX) 400 mg tablet Take 1 tablet by mouth every 12 hours. 60 tablet 11 08/10/2021 08/10/2022 Active Completed/Discontinued Medications Medication Drug Class(es) Dates Sig (Normalized) Sig (Original) 24 hr buPROPion hydrochloride 150 mg extended release oral tablet (20 sources) Aminoketone Start: 06-26-2021 End: 02-10-2022 take 1 tablet by mouth once daily buPROPion XL (WELLBUTRIN XL) 150 mg 24 hr tablet Take 300 mg by mouth once daily. 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); Translations: [Follicular lymphoma grade II, lymph nodes of multiple sites] Onset: 08-02-2021 Chronic Other female genital disorders (2 sources) Superficial pain on intercourse; Translations: [Superficial (introital) dyspareunia] Chronic Other female genital disorders (2 sources) Pain in female genitalia on intercourse; Translations: [Unspecified dyspareunia] Chronic Other female genital disorders (1 source) Burning sensation of vulva; Translations: [Other specified conditions associated with female genital organs and menstrual cycle] Episodic Other female genital disorders (4 sources) Atrophic vulva; Translations: [Atrophy of vulva] Episodic Other screening for suspected conditions (not mental disorders or infectious disease) (1 source) Mammography abnormal; Translations: [Other abnormal and inconclusive findings on diagnostic imaging of breast] Episodic Ovarian cyst (1 source) Cyst of ovary; Translations: [Unspecified ovarian cyst, unspecified side] Episodic Residual codes; unclassified (7 sources) Patient encounter status; Translations: [Encounter for prophylactic measures, unspecified] Episodic Results Test Name Value Interpretation Reference Range Facil ity Vital Signs Date Time Vital Sign Value Performing Clinician Last ríos 09-01-2022 09:04-0400 Body temperature 97.9 [degF] Karo Hill MD Work Phone: [facility] 09-01-2022 09:04-0400 Body weight 55.11 kg Karo Hill MD Work Phone: [facility] 09-01-2022 09:04-0400 Diastolic blood pressure 68 mm[Hg] Karo Hill MD Work Phone: [facility] 09-01-2022 09:04-0400 Heart rate 70 /min Karo Hill MD Work Phone: [facility] 09-01-2022 09:04-0400 Respiratory rate 20 /min Karo Hill MD Work Phone: [facility] 09-01-2022 09:04-0400 SaO2% (BldA) [Mass fraction] 99 % Karo Hill MD Work Phone: [facility] 09-01-2022 09:04-0400 Systolic blood pressure 127 mm[Hg] Karo Hill MD Work Phone: [facility] 06-01-2022 10:01-0500 Body weight 56.2 kg My Borges MD Work Phone: [facility] 06-01-2022 10:01-0500 Diastolic blood pressure 82 mm[Hg] My Borges MD Work Phone: [facility] 06-01-2022 10:01-0500 Systolic blood pressure 132 mm[Hg] My Borges MD Work Phone: [facility] 03-17-2022 09:46-0400 Body height 161.5 cm My Borges MD Work Phone: [facility] 03-17-2022 09:46-0400 Body weight 53.98 kg My Borges MD Work Phone: [facility] 03-17-2022 09:46-0400 Diastolic blood pressure 60 mm[Hg] My Borges MD Work Phone: [facility] 03-17-2022 09:46-0400 Systolic blood pressure 100 mm[Hg] My Borges MD Work Phone: [facility] 02-13-2022 08:47-0400 Body weight 55.25 kg My Borges MD Work Phone: [facility] 02-13-2022 08:47-0400 Diastolic blood pressure 70 mm[Hg] My Borges MD Work Phone: [facility] 02-13-2022 08:47-0400 Systolic blood pressure 106 mm[Hg] My Borges MD Work Phone: [facility] 02-10-2022 10:19-0400 Body temperature 98.01 [degF] Karo Hill MD Work Phone: [facility] 02-10-2022 10:19-0400 Body weight 54.8 kg Karo Hill MD Work Phone: [facility] 02-10-2022 10:19-0400 Diastolic blood pressure 65 mm[Hg] Karo Hill MD Work Phone: [facility] 02-10-2022 10:19-0400 Heart rate 63 /min Karo Hill MD Work Phone: [facility] 02-10-2022 10:19-0400 Respiratory rate 16 /min Karo Hill MD Work Phone: [facility] 02-10-2022 10:19-0400 SaO2% (BldA) [Mass fraction] 100 % Karo Hill MD Work Phone: [facility] 02-10-2022 10:19-0400 Systolic blood pressure 129 mm[Hg] Karo Hill MD Work Phone: [facility] 12-29-2021 09:40-0400 Body temperature 98.4 [degF] Chair Joseph/Bmt Work Phone: [facility] 12-29-2021 09:40-0400 Diastolic blood pressure 71 mm[Hg] Chair Joseph/Bmt Work Phone: [facility] 12-29-2021 09:40-0400 Heart rate 69 /min Chair Joseph/Bmt Work Phone: [facility] 12-29-2021 09:40-0400 Respiratory rate 18 /min Chair Joseph/Bmt Work Phone: [facility] 12-29-2021 09:40-0400 Systolic blood pressure 113 mm[Hg] Chair Joseph/Bmt Work Phone: [facility] 12-28-2021 10:56-0400 Body temperature 97.39 [degF] Karo Hill MD Work Phone: [facility] 12-28-2021 10:56-0400 Body weight 54.2 kg Karo Hill MD Work Phone: [facility] 12-28-2021 10:56-0400 Diastolic blood pressure 80 mm[Hg] Karo Hill MD Work Phone: [facility] 12-28-2021 10:56-0400 Heart rate 65 /min Karo Hill MD Work Phone: [facility] 12-28-2021 10:56-0400 Respiratory rate 18 /min Karo Hill MD Work Phone: [facility] 12-28-2021 10:56-0400 SaO2% (BldA) [Mass fraction] 100 % Karo Hill MD Work Phone: [facility] 12-28-2021 10:56-0400 Systolic blood pressure 126 mm[Hg] Krao Hill MD Work Phone: [facility] 12-01-2021 08:50-0400 Body temperature 97.81 [degF] Chair Joseph/Bmt Work Phone: [facility] 12-01-2021 08:50-0400 Diastolic blood pressure 76 mm[Hg] Chair Joseph/Bmt Work Phone: [facility] 12-01-2021 08:50-0400 Heart rate 76 /min Chair Joseph/Bmt Work Phone: [facility] 12-01-2021 08:50-0400 Respiratory rate 18 /min Chair Joseph/Bmt Work Phone: [facility] 12-01-2021 08:50-0400 Systolic blood pressure 96 mm[Hg] Chair Joseph/Bmt Work Phone: [facility] 11-30-2021 11:04-0400 Body temperature 98.6 [degF] Karo Hill MD Work Phone: [facility] 11-30-2021 11:04-0400 Body weight 53.52 kg Karo Hill MD Work Phone: [facility] 11-30-2021 11:04-0400 Diastolic blood pressure 74 mm[Hg] Karo Hill MD Work Phone: [facility] 11-30-2021 11:04-0400 Heart rate 85 /min Karo Hill MD Work Phone: [facility] 11-30-2021 11:04-0400 Respiratory rate 18 /min Karo Hill MD Work Phone: [facility] 11-30-2021 11:04-0400 SaO2% (BldA) [Mass fraction] 100 % Karo Hill MD Work Phone: [facility] 11-30-2021 11:04-0400 Systolic blood pressure 119 mm[Hg] Karo Hill MD Work Phone: [facility] 11-03-2021 09:29-0400 Body temperature 98.1 [degF] Chair Joseph/Bmt Work Phone: [facility] 11-03-2021 09:29-0400 Diastolic blood pressure 88 mm[Hg] Chair Jospeh/Bmt Work Phone: [facility] 11-03-2021 09:29-0400 Heart rate 74 /min Chair Joseph/Bmt Work Phone: [facility] 11-03-2021 09:29-0400 Respiratory rate 16 /min Chair Joseph/Bmt Work Phone: [facility] 11-03-2021 09:29-0400 Systolic blood pressure 141 mm[Hg] Chair Joseph/Bmt Work Phone: [facility] 11-02-2021 08:24-0400 Body height 161.8 cm Karo Hill MD Work Phone: [facility] 11-02-2021 08:24-0400 Body temperature 97.9 [degF] Karo Hill MD Work Phone: [facility] 11-02-2021 08:24-0400 Body weight 54.16 kg Karo Hill MD Work Phone: [facility] 11-02-2021 08:24-0400 Diastolic blood pressure 82 mm[Hg] Karo Hill MD Work Phone: [facility] 11-02-2021 08:24-0400 Heart rate 73 /min Karo Hill MD Work Phone: [facility] 11-02-2021 08:24-0400 Respiratory rate 16 /min Karo Hill MD Work Phone: [facility] 11-02-2021 08:24-0400 SaO2% (BldA) [Mass fraction] 100 % Karo Hill MD Work Phone: [facility] 11-02-2021 08:24-0400 Systolic blood pressure 125 mm[Hg] Karo Hill MD Work Phone: [facility] 10-06-2021 12:30-0400 Body temperature 98.91 [degF] Chair Joseph/Bmt Work Phone: [facility] 10-06-2021 12:30-0400 Diastolic blood pressure 76 mm[Hg] Chair Joseph/Bmt Work Phone: [facility] 10-06-2021 12:30-0400 Heart rate 73 /min Chair Joseph/Bmt Work Phone: [facility] 10-06-2021 12:30-0400 Respiratory rate 18 /min Chair Joseph/Bmt Work Phone: [facility] 10-06-2021 12:30-0400 Systolic blood pressure 135 mm[Hg] Chair Joseph/Bmt Work Phone: [facility] 10-05-2021 08:29-0400 Body temperature 97.9 [degF] Karo Hill MD Work Phone: [facility] 10-05-2021 08:29-0400 Body weight 54.43 kg Karo Hill MD Work Phone: [facility] 10-05-2021 08:29-0400 Diastolic blood pressure 71 mm[Hg] Karo Hill MD Work Phone: [facility] 10-05-2021 08:29-0400 Heart rate 71 /min Karo Hill MD Work Phone: [facility] 10-05-2021 08:29-0400 Respiratory rate 16 /min Karo Hill MD Work Phone: [facility] 10-05-2021 08:29-0400 SaO2% (BldA) [Mass fraction] 100 % Karo Hill MD Work Phone: [facility] 10-05-2021 08:29-0400 Systolic blood pressure 133 mm[Hg] Karo Hill MD Work Phone: [facility] 09-08-2021 14:38-0400 Body temperature 97.9 [degF] Chair Joseph/Bmt Work Phone: [facility] 09-08-2021 14:38-0400 Diastolic blood pressure 63 mm[Hg] Chair Joseph/Bmt Work Phone: [facility] 09-08-2021 14:38-0400 Heart rate 75 /min Chair Joseph/Bmt Work Phone: [facility] 09-08-2021 14:38-0400 Respiratory rate 18 /min Chair Joseph/Bmt Work Phone: [facility] 09-08-2021 14:38-0400 Systolic blood pressure 110 mm[Hg] Chair Joseph/Bmt Work Phone: [facility] 09-07-2021 14:16-0400 Body temperature 98.29 [degF] Chair Joseph/Bmt Work Phone: [facility] 09-07-2021 14:16-0400 Diastolic blood pressure 55 mm[Hg] Chair Joseph/Bmt Work Phone: [facility] 09-07-2021 14:16-0400 Heart rate 79 /min Chair Joseph/Bmt Work Phone: [facility] 09-07-2021 14:16-0400 Respiratory rate 18 /min Chair Joseph/Bmt Work Phone: [facility] 09-07-2021 14:16-0400 Systolic blood pressure 114 mm[Hg] Chair Joseph/Bmt Work Phone: [facility] 09-07-2021 09:37-0400 Body temperature 98.8 [degF] Karo Hill MD Work Phone: [facility] 09-07-2021 09:37-0400 Body weight 53.89 kg Karo Hill MD Work Phone: [facility] 09-07-2021 09:37-0400 Diastolic blood pressure 80 mm[Hg] Karo Hill MD Work Phone: [facility] 09-07-2021 09:37-0400 Heart rate 68 /min Karo Hill MD Work Phone: [facility] 09-07-2021 09:37-0400 Respiratory rate 16 /min Karo Hill MD Work Phone: [facility] 09-07-2021 09:37-0400 SaO2% (BldA) [Mass fraction] 100 % Karo Hill MD Work Phone: [facility] 09-07-2021 09:37-0400 Systolic blood pressure 134 mm[Hg] Karo Hill MD Work Phone: [facility] Encounters Encounter Date Encounter Type Care Provider Facility Start: 07-04-2023 End: 07-05-2023 ambulatory KARO HILL Facility:[facility] Start: 01-03-2023 End: 01-04-2023 ambulatory KARO HILL Facility:[facility] Start: 09-01-2022 End: 09-01-2022 ambulatory KARO HILL Facility:[facility] Start: 09-01-2022 End: 09-01-2022 Office outpatient visit 15 minutes Karo Hill MD Work Phone: Hematology/Oncology Procedures Date Procedure Procedure Detail Performing Clinician Start: 08-30-2022 Ct abdomen & pelvis w/contrast material Karo Hill MD Work Phone: Start: 08-30-2022 Ct thorax w/contrast material Karo Hill MD Work Phone: Start: 02-15-2022 End: 02-15-2022 Screening mammography bi 2-view breast inc cad My Borges MD Work Phone: Start: 02-08-2022 Ct abdomen & pelvis w/contrast material Karo Hill MD Work Phone: Start: 02-08-2022 Ct soft tissue neck w/contrast material Karo Hill MD Work Phone: Start: 02-08-2022 Ct thorax w/contrast material Karo Hill MD Work Phone: Start: 02-08-2022 Creatinine [Mass/vol ume] in Serum or Plasma [facility] Provider Start: 02-08-2022 Adult depression scr eening assessment Ct (I-[facility]) Start: 12-28-2021 End: 12-28-2021 Comprehensive metabolic panel Karo Hill MD Work Phone: Start: 11-30-2021 Blood count complete auto&auto difrntl wbc Karo Hill MD Work Phone: Start: 11-02-2021 Adult depression scr eening assessment Karo Hill MD Work Phone: Start: 11-01-2021 Ct abdomen & pelvis w/contrast material Karo Hill MD Work Phone: Start: 11-01-2021 Ct thorax w/contrast material Karo Hill MD Work Phone: Start: 08-09-2021 Adult depression scr eening assessment Karo Hill MD Work Phone: Start: 10-18-2020 Mammography Karo cardenas MD Work Phone: Plan of Treatment Date Care Activity Detail Author Start: 01-03-2026 Diabetes Screening Diabetes Screenin g [facility] Start: 08-30-2025 DIABETES SCREEN DIABETES SCREEN [facility] Start: 05-26-2025 DIABETES SCREEN DIABETES SCREEN [facility] Start: 02-08-2025 DIABETES SCREEN DIABETES SCREEN [facility] Start: 12-28-2024 DIABETES SCREEN DIABETES SCREEN [facility] Start: 11-30-2024 DIABETES SCREEN DIABETES SCREEN [facility] Start: 11-01-2024 DIABETES SCREEN DIABETES SCREEN [facility] Start: 10-04-2024 DIABETES SCREEN DIABETES SCREEN [facility] Start: 09-07-2024 DIABETES SCREEN DIABETES SCREEN [facility] Start: 06-25-2024 HPV TESTING HPV TESTING [facility] Start: 06-25-2024 PAP TESTING PAP TESTING [facility] Start: 2023 RSV Vaccine (1 - 1-d ose 60+ series) RSV Vaccine (1 - 1-dose 60+ series) [facility] Start: 02-16-2023 Influenza vaccination Influenza Vacc ine (#1) [facility] Start: 02-15-2023 Mammography [facility] Start: 02-08-2023 Adult depression screening assessment DEPRESSION SCREENING [facility] Start: 12-30-2022 End: 03-01-2023 CBC W Auto Differential panel - Blood CBC + DIFF Lab Routine 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) Expected: 12/30/2022 (Approximate), Expires: 03/01/2023 [facility] Work Phone: Immunizations Immunization Date Immunization Notes Care Provider Fa cility 05-30-2022 influenza virus vacc ine, unspecified formulation Ct ([facility]) Work Phone: [facility] Payers Date Payer Category Payer Unknown JESSE SHAH STANISLAV [employer]ISON PPO [id number] 2017-Present [phone] [address] [place] [address] PPO [id number] 2017 Unknown JESSE ALLISON PPO [id number] 2017-Present [phone] [address] [place] [address] PPO [id number] 2017 Unknown [id number] Social History Date Type Detail Facility Start: 06-25-2019 End: 02-13-2022 Tobacco smoking status NHIS Never smoked tobacco [facility] Start: 06-25-2019 End: 02-13-2022 Tobacco use and exposure Smokeless tobacco non-user [facility] Start: 08-01-2021 End: 06-01-2022 Alcohol intake Current drinker of alcohol (finding) [facility] Start: 06-25-2019 End: 10-23-2019 History SDOH Alcohol Frequency 2 [facility] Start: 06-25-2019 End: 10-23-2019 History SDOH Alcohol Std Drinks 1 [facility] Start: 06-25-2019 History SDOH Social Connections Phone 3 [facility] Start: 06-25-2019 History SDOH Physica l Activity DPW 5 [facility] Start: 06-25-2019 History SDOH Stress 4 [facility] Start: 1965 Sex Assigned At Female C [facility] Start: 08-28-2021 End: 02-10-2022 Exposure to SARS-CoV-2 (event) Not sure [facility] Start: 06-25-2019 End: 07-13-2022 History of Social function [facility] Start: 06-25-2019 End: 07-13-2022 Social connection and isolation panel [facility] Do you belong to any clubs or organizations such as worship groups, unions, fraternal or athletic groups, or school groups? Yes [facility] Are you now , , , , never or living with a partner? [facility] How often to you hav e a drink containing alcohol? Monthly or less [facility] How many standard dr inks containing alcohol do you have on a typical day? 1 or 2 [facility] How often do you hav e 6 or more drinks on 1 occasion? Never [facility] How hard is it for y ou to pay for the very basics like food, housing, medical care, and heating Not hard at all [facility] Do you feel stress - tense, restless, nervous, or anxious, or unable to sleep at night because your mind is troubled all the time - these days [OSQ] Rather much [facility] (I/We) worried wheth er (my/our) food would run out before (I/we) got money to buy more. Never true [facility] Start: 10-22-2019 Gender identity Identifies as female gender (finding) [facility] Start: 10-22-2019 Sexual orientation Heterosexual (fin ding) [facility] Clinical Notes 08-09-2021 to 07-04-2023 Karo Hill MD - 09/01/2022 9:18 AM Emmanuel Pro RN - 09/01/2022 9:05 AM Kylee Leonard RT(R) - 08/30/2022 11:00 AM Brian Borges MD - 06/01/2022 10:05 AM EST Note Date & Type Note Facility 07-04-2023 Note HNO ID: [id number] Author: KARO HILL MD Service: ? 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 INTERIM HISTORY: Nursing notes reviewed; agree with findings as documented. Ms. Renee returns for follow up. She feels well overall. Energy level and appetite are good. No constitutional symptoms or lymphadenopathy. Notes that her BP is running higher, thinks that she needs to exercise more -- planning to discuss with her PCP. No other specific concerns. MEDICATIONS: Per Rayn. REVIEW OF SYSTEMS: As described above. ECOG PS = 0. PHYSICAL EXAMINATION: VITAL SIGNS: BP 146/73 Pulse 63 Temp 37 ?C (98.6 ?F) (Oral) Resp 18 Wt 55.7 kg (122 lb 12.7 oz) SpO2 100% BMI 21.22 kg/m? GENERAL: well-appearing middle-aged woman in no acute distress. HEAD, EYES, EARS, NOSE, AND THROAT: Normocephalic, atraumatic. Extraocular movements intact, sclerae anicteric. The oropharynx is clear. NECK: Supple, no lymphadenopathy or masses. CHEST: Clear to auscultation. No rales, wheezes, or rhonchi. CARDIAC: Regular rate and rhythm, normal S1 and S2. No murmurs. ABDOMEN: Abdomen soft, non-tender. Bowel sounds normal. No masses, organomegaly. EXTREMITIES: Warm, no edema. LYMPH NODES: No axillary or inguinal lymphadenopathy. MUSCULOSKELETAL: No spinal tenderness to palpation. No obvious deformity. SKIN: No rash or suspicious lesions. DIAGNOSTIC STUDIES: Component Latest Ref Rng AND Units 07/04/2023 WBC 3.70 - 11.00 k/uL 3.71 RBC 3.90 - 5.20 m/uL 4.15 Hemoglobin 11.5 - 15.5 g/dL 13.0 Hematocrit 36.0 - 46.0 % 41.3 MCV 80.0 - 100.0 fL 99.5 MCH 26.0 - 34.0 pg 31.3 MCHC 30.5 - 36.0 g/dL 31.5 RDW-CV 11.5 - 15.0 % 12.5 Platelet Count 150 - 400 k/uL 345 MPV 9.0 - 12.7 fL 9.9 Neut% % 54.2 Abs Neut (ANC) 1.45 - 7.50 k/uL 2.01 Lymph% % 31.3 Abs Lymph 1.00 - 4.00 k/uL 1.16 [place]% % 12.9 Abs [place] <0.87 k/uL 0.48 Eosin% % 0.5 Abs Eosin <0.46 k/uL <0.03 Baso% % 0.8 Abs Baso <0.11 k/uL 0.03 Immature Gran % % 0.3 IMMATURE GRANS (ABS) <0.10 k/uL <0.03 NRBC /100 WBC 0.0 Absolute nRBC <0.01 k/uL <0.01 DTYPE Auto Protein, Total 6.3 - 8.0 g/dL 7.7 Albumin 3.9 - 4.9 g/dL 4.6 Calcium 8.5 - 10.2 mg/dL 10.4 (H) Bilirubin, Total 0.2 - 1.3 mg/dL 0.4 Alkaline Phosphatase 34 - 123 U/L 113 AST 13 - 35 U/L 18 ALT 7 - 38 U/L 13 Glucose 74 - 99 mg/dL 94 BUN 7 - 21 mg/dL 12 Creatinine 0.58 - 0.96 mg/dL 0.79 Sodium 136 - 144 mmol/L 143 Potassium 3.7 - 5.1 mmol/L 5.2 (H) Chloride 97 - 105 mmol/L 105 CO2 22 - 30 mmol/L 28 Anion Gap 9 - 18 mmol/L 10 eGFR >=60 mL/min/1.73mA? 86 LD 135 - 214 U/L 172 IMPRESSION AND PLAN: 1. Follicular lymphoma remains in clinical remission. RTC in 6 months. Discussed pros and cons of surveillance imaging at that visit; explained that documentation of continued remission 2 years after treatment is prognostic, but asymptomatic slight progression would probably not prompt immediate intervention with second-line therapy. Ms. Renee is leaning against having the scans until she becomes symptomatic again, but she will think it over and let me know. 2. IV access: Peripheral IV access is marginal; anticipate that a port will be needed for further treatment in the future. I spent a total of 25 minutes on the date of the service which included preparing to see the patient, [id number] patient care, completing clinical documentation, obtaining and/or reviewing separately obtained history, performing a medically appropriate examination, counseling and educating the patient/family/caregiver, and ordering medications, tests, or procedures. Karo Hill MD cc: Sergio Landaverde MD; ; [facility] 01-03-2023 Note HNO ID: [id number] Author: Karo Hill MD Service: ? 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 Staff addendum: Nursing notes reviewed; agree with findings as documented. I personally interviewed and examined Ms. Renee and I confirmed and edited the [place]evedo elements of the history and examination documented by Dr. Ohara. Impression: Ms. Renee returns for follow up. She has been well overall since her last visit. Notes mild lower abdominal bloating, most noticeable when in the evening; hasn't noticed any relationship to diet or bowel habits. No nausea. ECOG PS = 0. On examination, she appears well. VS unremarkable. HEENT nonfocal. Neck supple, no lymphadenopathy. Chest clear to auscultation. Heart sounds normal. Abdomen soft, bowel sounds present. No tenderness, distension, mass, or organomegaly. Extremities warm, no edema. No axillary or inguinal lymphadenopathy. No rash or suspicious skin lesions. No spinal tenderness to palpation. Labs today: Component Latest Ref Rng AND Units 01/03/2023 WBC 3.70 - 11.00 k/uL 3.14 (L) RBC 3.90 - 5.20 m/uL 3.90 Hemoglobin 11.5 - 15.5 g/dL 12.4 Hematocrit 36.0 - 46.0 % 37.9 MCV 80.0 - 100.0 fL 97.2 MCH 26.0 - 34.0 pg 31.8 MCHC 30.5 - 36.0 g/dL 32.7 RDW-CV 11.5 - 15.0 % 12.6 Platelet Count 150 - 400 k/uL 353 MPV 9.0 - 12.7 fL 9.4 Neut% % 51.9 Abs Neut (ANC) 1.45 - 7.50 k/uL 1.63 Lymph% % 29.3 Abs Lymph 1.00 - 4.00 k/uL 0.92 (L) Mariposa% % 15.9 Abs Mariposa <0.87 k/uL 0.50 Eosin% % 1.6 Abs Eosin <0.46 k/uL 0.05 Baso% % 1.0 Abs Baso <0.11 k/uL 0.03 Immature Gran % % 0.3 IMMATURE GRANS (ABS) <0.10 k/uL <0.03 NRBC /100 WBC 0.0 Absolute nRBC <0.01 k/uL <0.01 DTYPE Auto Protein, Total 6.3 - 8.0 g/dL 7.5 Albumin 3.9 - 4.9 g/dL 4.6 Calcium 8.5 - 10.2 mg/dL 10.1 Bilirubin, Total 0.2 - 1.3 mg/dL 0.4 Alkaline Phosphatase 34 - 123 U/L 128 (H) AST 13 - 35 U/L 20 ALT 7 - 38 U/L 12 Glucose 74 - 99 mg/dL 93 BUN 7 - 21 mg/dL 13 Creatinine 0.58 - 0.96 mg/dL 0.74 Sodium 136 - 144 mmol/L 145 (H) Potassium 3.7 - 5.1 mmol/L 4.8 Chloride 97 - 105 mmol/L 106 (H) CO2 22 - 30 mmol/L 28 Anion Gap 9 - 18 mmol/L 11 eGFR >=60 mL/min/1.73mA? 93 LD 135 - 214 U/L 154 Plan: 1. Follicular lymphoma remains in clinical remission. RTC in 6 months. Surveillance scans in summer 2023. 2. IV access: Peripheral IV access is marginal; anticipate that a port will be needed for further treatment in the future. I spent a total of 20 minutes on the date of the service which included preparing to see the patient, [id number] patient care, completing clinical documentation, obtaining and/or reviewing separately obtained history, performing a medically appropriate examination, counseling and educating the patient/family/caregiver, and ordering medications, tests, or procedures. Karo Hill MD cc: Sergio Landaverde MD; ; [facility] 01-03-2023 Note HNO ID: [id number] Author: Serjio Ohara MD Service: ? 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 INTERIM HISTORY: Nursing notes reviewed; agree with findings as documented. Ms. Renee returns for follow up. She was last seen 09/01/2022. She feels well. She denies constitutional symptoms or lymphadenopathy. She noted occasional bloating and gas like symptoms but not too bothersome, no nausea/vomiting and diarrhea, no weight loss. MEDICATIONS: Per Rayn. REVIEW OF SYSTEMS: As described above. ECOG PS = 0. PHYSICAL EXAMINATION: VITAL SIGNS: BP 137/78 Pulse 63 Temp 36.6 ?C (97.9 ?F) (Oral) Resp 18 Ht 162 cm (5' 3.78 ) Wt 54.3 kg (119 lb 12.8 oz) SpO2 100% BMI 20.71 kg/m? GENERAL: well-appearing middle-aged woman in no acute distress. HEAD, EYES, EARS, NOSE, AND THROAT: Normocephalic, atraumatic. Extraocular movements intact, sclerae anicteric. The oropharynx is clear. NECK: Supple, no lymphadenopathy or masses. CHEST: Clear to auscultation. No rales, wheezes, or rhonchi. CARDIAC: Regular rate and rhythm, normal S1 and S2. No murmurs. ABDOMEN: Abdomen soft, non-tender. Bowel sounds normal. No masses, organomegaly. EXTREMITIES: Warm, no edema. LYMPH NODES: No axillary or inguinal lymphadenopathy. MUSCULOSKELETAL: No spinal tenderness to palpation. No obvious deformity. SKIN: No rash or suspicious lesions. DIAGNOSTIC STUDIES: Component Latest Ref Rng AND Units 08/30/2022 01/03/2023 WBC 3.70 - 11.00 k/uL 3.64 (L) 3.14 (L) RBC 3.90 - 5.20 m/uL 3.76 (L) 3.90 Hemoglobin 11.5 - 15.5 g/dL 12.5 12.4 Hematocrit 36.0 - 46.0 % 38.6 37.9 MCV 80.0 - 100.0 fL 102.7 (H) 97.2 MCH 26.0 - 34.0 pg 33.2 31.8 MCHC 30.5 - 36.0 g/dL 32.4 32.7 RDW-CV 11.5 - 15.0 % 11.9 12.6 Platelet Count 150 - 400 k/uL 357 353 MPV 9.0 - 12.7 fL 10.5 9.4 Neut% % 68.1 51.9 Abs Neut (ANC) 1.45 - 7.50 k/uL 2.48 1.63 Lymph% % 16.5 29.3 Abs Lymph 1.00 - 4.00 k/uL 0.60 (L) 0.92 (L) Mariposa% % 13.5 15.9 Abs Mariposa <0.87 k/uL 0.49 0.50 Eosin% % 1.4 1.6 Abs Eosin <0.46 k/uL 0.05 0.05 Baso% % 0.5 1.0 Abs Baso <0.11 k/uL <0.03 0.03 Immature Gran % % 0.0 0.3 IMMATURE GRANS (ABS) <0.10 k/uL <0.03 <0.03 NRBC /100 WBC 0.0 0.0 Absolute nRBC <0.01 k/uL <0.01 <0.01 DTYPE Auto Auto Component Latest Ref Rng AND Units 08/30/2022 01/03/2023 Protein, Total 6.3 - 8.0 g/dL 7.5 7.5 Albumin 3.9 - 4.9 g/dL 4.5 4.6 Calcium 8.5 - 10.2 mg/dL 9.9 10.1 Bilirubin, Total 0.2 - 1.3 mg/dL 0.4 0.4 Alkaline Phosphatase 34 - 123 U/L 117 128 (H) AST 13 - 35 U/L 24 20 ALT 7 - 38 U/L 15 12 Glucose 74 - 99 mg/dL 101 (H) 93 BUN 7 - 21 mg/dL 12 13 Creatinine 0.58 - 0.96 mg/dL 0.71 0.74 Sodium 136 - 144 mmol/L 144 145 (H) Potassium 3.7 - 5.1 mmol/L 3.5 (L) 4.8 Chloride 97 - 105 mmol/L 104 106 (H) CO2 22 - 30 mmol/L 30 28 Anion Gap 9 - 18 mmol/L 10 11 eGFR >=60 mL/min/1.73mA? 98 93 LD 135 - 214 U/L 241 (H) 154 IMPRESSION AND PLAN: 1. Follicular lymphoma. Remains in clinicla and hematologic remission. Since she is almost a year out of treatment, we will space follow ups to every 6 months. We agreed to defer restaging CT scans until 2 years after completing treatment (~01/2024) 2. IV access: Peripheral IV access is marginal; anticipate that a port will be needed for further treatment in the future. The above plan was discussed with staff MD Serjio Zhou MD Hematology/Oncology Fellow [facility] 09-01-2022 Note HNO ID: [id number] Author: Karo Hill MD Service: ? Author Type: Physician Type: Progress Notes Filed: 09/01/2022 2:12 PM Note Text: [facility] CLINICAL NOTE Department of Hematology and Medical Oncology PATIENT NAME: Aydin Renee [facility] NO.: [id number] ATTENDING PHYSICIAN: Karo Hill MD DATE OF SERVICE: 09/01/2022 [facility] FOLLOWUP DIAGNOSIS: Stage III, grade 1-2 follicular lymphoma diagnosed 07/2021, status post rituximab and bendamustine x 6 cycles from 07/2021-01/2022 (near-CR). INTERIM HISTORY: Nursing notes reviewed; agree with findings as documented. Ms. Renee returns for follow up. She feels well, except for chronic right foot pain for which she is preparing to undergo surgery. No constitutional symptoms or lymphadenopathy. She feels that she has recovered fully from her treatment. MEDICATIONS: Per EpicCare. REVIEW OF SYSTEMS: As described above. ECOG PS = 0. PHYSICAL EXAMINATION: VITAL SIGNS: BP 127/68 Pulse 70 Temp 36.6 ?C (97.9 ?F) (Oral) Resp 20 Wt 55.1 kg (121 lb 8 oz) SpO2 99% BMI 21.13 kg/m? GENERAL: well-appearing middle-aged woman in no acute distress. HEAD, EYES, EARS, NOSE, AND THROAT: Normocephalic, atraumatic. Extraocular movements intact, sclerae anicteric. The oropharynx is clear. NECK: Supple, no lymphadenopathy or masses. CHEST: Clear to auscultation. No rales, wheezes, or rhonchi. CARDIAC: Regular rate and rhythm, normal S1 and S2. No murmurs. ABDOMEN: Abdomen soft, non-tender. Bowel sounds normal. No masses, organomegaly. EXTREMITIES: Warm, no edema. LYMPH NODES: No axillary or inguinal lymphadenopathy. MUSCULOSKELETAL: No spinal tenderness to palpation. No obvious deformity. SKIN: No rash or suspicious lesions. DIAGNOSTIC STUDIES: Component Latest Ref Rng AND Units 08/30/2022 WBC 3.70 - 11.00 k/uL 3.64 (L) RBC 3.90 - 5.20 m/uL 3.76 (L) Hemoglobin 11.5 - 15.5 g/dL 12.5 Hematocrit 36.0 - 46.0 % 38.6 MCV 80.0 - 100.0 fL 102.7 (H) MCH 26.0 - 34.0 pg 33.2 MCHC 30.5 - 36.0 g/dL 32.4 RDW-CV 11.5 - 15.0 % 11.9 Platelet Count 150 - 400 k/uL 357 MPV 9.0 - 12.7 fL 10.5 Neut% % 68.1 Abs Neut (ANC) 1.45 - 7.50 k/uL 2.48 Lymph% % 16.5 Abs Lymph 1.00 - 4.00 k/uL 0.60 (L) Mariposa% % 13.5 Abs Marip[place] <0.87 k/uL 0.49 Eosin% % 1.4 Abs Eosin <0.46 k/uL 0.05 Baso% % 0.5 Abs Baso <0.11 k/uL <0.03 Immature Gran % % 0.0 IMMATURE GRANS (ABS) <0.10 k/uL <0.03 NRBC /100 WBC 0.0 Absolute nRBC <0.01 k/uL <0.01 DTYPE Auto Protein, Total 6.3 - 8.0 g/dL 7.5 Albumin 3.9 - 4.9 g/dL 4.5 Calcium 8.5 - 10.2 mg/dL 9.9 Bilirubin, Total 0.2 - 1.3 mg/dL 0.4 Alkaline Phosphatase 34 - 123 U/L 117 AST 13 - 35 U/L 24 ALT 7 - 38 U/L 15 Glucose 74 - 99 mg/dL 101 (H) BUN 7 - 21 mg/dL 12 Creatinine 0.58 - 0.96 mg/dL 0.71 Sodium 136 - 144 mmol/L 144 Potassium 3.7 - 5.1 mmol/L 3.5 (L) Chloride 97 - 105 mmol/L 104 CO2 22 - 30 mmol/L 30 Anion Gap 9 - 18 mmol/L 10 eGFR >=60 mL/min/1.73mA? 98 LD 135 - 214 U/L 241 (H) CT chest, abdomen, and pelvis, 08/30/2022: No evidence of recurrent lymphoma. Stable ill-defined soft tissue stranding along the mesenteric root. IMPRESSION AND PLAN: 1. Follicular lymphoma remains in remission. RTC in 4 months. We agreed to defer restaging CT scans until 2 years after completing treatment. 2. IV access: Peripheral IV access is marginal; anticipate that a port will be needed for further treatment in the future. I spent a total of 20 minutes on the date of the service which included preparing to see the patient, [id number] patient care, completing clinical documentation, obtaining and/or reviewing separately obtained history, performing a medically appropriate examination, counseling and educating the patient/family/caregiver, and ordering medications, tests, or procedures. Karo Hill MD cc: Sergio Landaverde MD; ; [facility] 09-01-2022 History of Present illness Narrative [facility] CLINICAL NOTE Department of Hematology and Medical Oncology PATIENT NAME: Aydin Renee CLINIC NO.: [id number] ATTENDING PHYSICIAN: Karo Hill MD DATE OF SERVICE: 09/01/2022 [facility] FOLLOWUP DIAGNOSIS: Stage III, grade 1-2 follicular lymphoma diagnosed 07/2021, status post rituximab and bendamustine x 6 cycles from 07/2021-01/2022 (near-CR). INTERIM HISTORY: Nursing notes reviewed; agree with findings as documented. Ms. Renee returns for follow up. She feels well, except for chronic right foot pain for which she is preparing to undergo surgery. No constitutional symptoms or lymphadenopathy. She feels that she has recovered fully from her treatment. MEDICATIONS: Per EpicCare. REVIEW OF SYSTEMS: As described above. ECOG PS = 0. PHYSICAL EXAMINATION: VITAL SIGNS: BP 127/68 Pulse 70 Temp 36.6 C (97.9 F) (Oral) Resp 20 Wt 55.1 kg (121 lb 8 oz) SpO2 99% BMI 21.13 kg/m GENERAL: well-appearing middle-aged woman in no acute distress. HEAD, EYES, EARS, NOSE, AND THROAT: Normocephalic, atraumatic. Extraocular movements intact, sclerae anicteric. The oropharynx is clear. NECK: Supple, no lymphadenopathy or masses. CHEST: Clear to auscultation. No rales, wheezes, or rhonchi. CARDIAC: Regular rate and rhythm, normal S1 and S2. No murmurs. ABDOMEN: Abdomen soft, non-tender. Bowel sounds normal. No masses, organomegaly. EXTREMITIES: Warm, no edema. LYMPH NODES: No axillary or inguinal lymphadenopathy. MUSCULOSKELETAL: No spinal tenderness to palpation. No obvious deformity. SKIN: No rash or suspicious lesions. DIAGNOSTIC STUDIES: Component Latest Ref Rng & Units 08/30/2022 WBC 3.70 - 11.00 k/uL 3.64 (L) RBC 3.90 - 5.20 m/uL 3.76 (L) Hemoglobin 11.5 - 15.5 g/dL 12.5 Hematocrit 36.0 - 46.0 % 38.6 MCV 80.0 - 100.0 fL 102.7 (H) MCH 26.0 - 34.0 pg 33.2 MCHC 30.5 - 36.0 g/dL 32.4 RDW-CV 11.5 - 15.0 % 11.9 Platelet Count 150 - 400 k/uL 357 MPV 9.0 - 12.7 fL 10.5 Neut% % 68.1 Abs Neut (ANC) 1.45 - 7.50 k/uL 2.48 Lymph% % 16.5 Abs Lymph 1.00 - 4.00 k/uL 0.60 (L) Mariposa% % 13.5 Abs [place] <0.87 k/uL 0.49 Eosin% % 1.4 Abs Eosin <0.46 k/uL 0.05 Baso% % 0.5 Abs Baso <0.11 k/uL <0.03 Immature Gran % % 0.0 IMMATURE GRANS (ABS) <0.10 k/uL <0.03 NRBC /100 WBC 0.0 Absolute nRBC <0.01 k/uL <0.01 DTYPE Auto Protein, Total 6.3 - 8.0 g/dL 7.5 Albumin 3.9 - 4.9 g/dL 4.5 Calcium 8.5 - 10.2 mg/dL 9.9 Bilirubin, Total 0.2 - 1.3 mg/dL 0.4 Alkaline Phosphatase 34 - 123 U/L 117 AST 13 - 35 U/L 24 ALT 7 - 38 U/L 15 Glucose 74 - 99 mg/dL 101 (H) BUN 7 - 21 mg/dL 12 Creatinine 0.58 - 0.96 mg/dL 0.71 Sodium 136 - 144 mmol/L 144 Potassium 3.7 - 5.1 mmol/L 3.5 (L) Chloride 97 - 105 mmol/L 104 CO2 22 - 30 mmol/L 30 Anion Gap 9 - 18 mmol/L 10 eGFR >=60 mL/min/1.73m 98 LD 135 - 214 U/L 241 (H) CT chest, abdomen, and pelvis, 08/30/2022: No evidence of recurrent lymphoma. Stable ill-defined soft tissue stranding along the mesenteric root. IMPRESSION AND PLAN: 1. Follicular lymphoma remains in remission. RTC in 4 months. We agreed to defer restaging CT scans until 2 years after completing treatment. 2. IV access: Peripheral IV access is marginal; anticipate that a port will be needed for further treatment in the future. I spent a total of 20 minutes on the date of the service which included preparing to see the patient, [id number] patient care, completing clinical documentation, obtaining and/or reviewing separately obtained history, performing a medically appropriate examination, counseling and educating the patient/family/caregiver, and ordering medications, tests, or procedures. Karo Hill MD cc: Sergio Landaverde MD; ; documented in this encounter [facility] 09-01-2022 Nurse Note Additional intake questions: Has the patient had fever, nausea, vomiting, diarrhea, constipation, fatigue for > 1 week? No Does patient have any new or increased numbness or tingling of extremities? No Is patient interested in fertility information? No Does patient need any prescription refills? No Does patient have an advanced directive in place? No, Patient refused referral to Social Work or Resource Center documented in this encounter [facility] 08-30-2022 Note HNO ID: [id number] Author: RT Adriel(Edmar) Service: ? Author Type: Spring Setter Type: Progress Notes Filed: 08/30/2022 3:00 PM Note Text: Radiology Service Progress Note DATE OF SERVICE: August 30, 2022 TIME: 3:00 PM PATIENT IDENTITY VERIFICATION COMPLETED USING TWO (2) STANDARD IDENTIFIERS: Name and Date of confirmed by patient verbally. FALL SCREENING: Has the patient had 2 falls in the last year or 1 fall with injury or currently using an Ambulatory Assistive Device (Walker, Cane, Wheelchair, Crutches, etc.)? No PATIENT GENDER DATA: Female. status: : No status: NO. PATIENT RELEVANT IMPLANT DATA REVIEWED: Yes ALLERGIES: Reviewed and unchanged CONTRAST ALLERGY: NO. EXAM: CT -CONTRAST INDUCED NEPHROPATHY RISK FACTORS: Patient age > 60 years CREATININE: Creatinine Date Value Ref Range Status 05/26/2022 0.70 0.58 - 0.96 mg/dL Final 02/08/2022 0.69 0.58 - 0.96 mg/dL Final Creatinine (POCT) Date Value Ref Range Status 02/08/2022 0.70 0.7 - 1.4 mg/dL Final Estimated Glomerular Filtration Rate Date Value Ref Range Status 05/26/2022 100 >=60 mL/min/1.73m? Final Comment: Estimated Glomerular Filtration Rate (eGFR) is calculated using the 2020 CKD-EPI creatinine equation. This equation utilizes serum creatinine, sex, and age as parameters. The creatinine assay has traceable calibration to isotope dilution-mass spectrometry. Refer to KDIGO guidelines for clinical interpretation. In patients with unstable renal function, e.g. those with acute kidney injury, the eGFR may not accurately reflect actual GFR. eGFR- Date Value Ref Range Status 08/11/2021 >60 Final P.O.C.T. RESULTS: POC done: Yes, See Lab Tab August 30, 2022 TREATMENT: N/A PERIPHERAL IV DATA: Ambulatory: A peripheral IV was started in the Left antecubital site with a Angio cath: 22 gauge. RADIOLOGY DEPARTMENT: CT; Exam(s) Completed: Chest Abdomen Pelvis SIGNATURE: MORALES Corral) PATIENT NAME: Aydin Renee DATE: August 30, 2022 TIME: 3:00 PM [facility] 08-30-2022 History of Present illness Narrative Radiology Service Progress Note DATE OF SERVICE: August 30, 2022 TIME: 3:00 PM PATIENT IDENTITY VERIFICATION COMPLETED USING TWO (2) STANDARD IDENTIFIERS: Name and Date of confirmed by patient verbally. FALL SCREENING: Has the patient had 2 falls in the last year or 1 fall with injury or currently using an Ambulatory Assistive Device (Walker, Cane, Wheelchair, Crutches, etc.)? No PATIENT GENDER DATA: Female. status: : No status: NO. PATIENT RELEVANT IMPLANT DATA REVIEWED: Yes ALLERGIES: Reviewed and unchanged CONTRAST ALLERGY: NO. EXAM: CT -CONTRAST INDUCED NEPHROPATHY RISK FACTORS: Patient age > 60 years CREATININE: Creatinine Date Value Ref Range Status 05/26/2022 0.70 0.58 - 0.96 mg/dL Final 02/08/2022 0.69 0.58 - 0.96 mg/dL Final Creatinine (POCT) Date Value Ref Range Status 02/08/2022 0.70 0.7 - 1.4 mg/dL Final Estimated Glomerular Filtration Rate Date Value Ref Range Status 05/26/2022 100 >=60 mL/min/1.73m Final Comment: Estimated Glomerular Filtration Rate (eGFR) is calculated using the 2020 CKD-EPI creatinine equation. This equation utilizes serum creatinine, sex, and age as parameters. The creatinine assay has traceable calibration to isotope dilution-mass spectrometry. Refer to KDIGO guidelines for clinical interpretation. In patients with unstable renal function, e.g. those with acute kidney injury, the eGFR may not accurately reflect actual GFR. eGFR- Date Value Ref Range Status 08/11/2021 >60 Final P.O.C.T. RESULTS: POC done: Yes, See Lab Tab August 30, 2022 TREATMENT: N/A PERIPHERAL IV DATA: Ambulatory: A peripheral IV was started in the Left antecubital site with a Angio cath: 22 gauge. RADIOLOGY DEPARTMENT: CT; Exam(s) Completed: Chest Abdomen Pelvis SIGNATURE: RT Ellis(R) PATIENT NAME: Aydin Renee DATE: August 30, 2022 TIME: 3:00 PM documented in this encounter [facility] 08-17-2022 Miscellaneous Notes Patient notified and voiced understanding. Patient's request for medication is as follows Requested Prescriptions Signed Prescriptions Disp Refills estradiol (ESTRING) 2 mg (7.5 mcg /24 hour) vaginal ring 1 Each 4 Sig: Use 2 mg vaginally every 3 months. Authorizing Provider: DALTON MAYES Order entered - please phone pharmacy and notify patient. Dalton Mayes MD SW patient asking if she can go back on the Estring instead of the estradiol suppository she is using now. The Estring is lower cost and more convenient. RX pending. Patient would like a call back. Gisel Garcia RN documented in this encounter [facility] 07-20-2022 Miscellaneous Notes Patient thought Dr. Hill told her at her appointment she should be getting a follow up PET scan. She said she sees that there was a CT scan ordered, she did not think this was correct. Told pt that per Dr. Hill's note at her last follow up visit, in his plan he clearly indicated that he wanted her to return to clinic in 3 months with follow up CT scans. Pt verbalized understanding and was fine with this. Had not further questions. Marychuy Joe RN Aydin Renee is calling Karo Hill MD today regarding Feeder Driver - Other (Return call needed) Patient has been identified by name and birthdate. Requesting response back: [phone] (home) [phone] (cell) Pt called in stating that she was supposed to be scheduled for a PET Scan, Labs and OV. I see the OV and lab orders but not the PET Scan. She is saying she cannot see anything scheduled at all in her MyChart. Please return the call to discuss the PET Scan appt. Jeniffer Sinclair July 20, 2022 documented in this encounter [facility] 06-01-2022 History of Present illness Narrative Aydin Renee is a 57 year old female who presents for dyspareunia. HPI: Having severe dyspareunia with insertion. Was on Prempro and Estring in the past. Was then on vaginal estrogen cream, which did not improve her symptoms. Has tried Imvexxy and just increased the dose last week. Still having pain with intercourse. No other new symptoms or new complaints today. She would like to continue to try Imvexxy. 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 Comments: Sexual Activity: Not Currently; Male Contraception: No contraception data on record PAST MEDICAL HISTORY Diagnosis Date Breast mass, left 2019 Depression PAST SURGICAL HISTORY Procedure Laterality Date BX OF BREAST; INCISIONAL Left 2020 needle biopsy PAST SURGICAL HISTORY OF Laproscopic exploratory surgery due to infertility FAMILY HISTORY Problem Relation Age of Onset No Known Problems Mother possible uterine cancer Pancreatic Cancer Father 90 Diabetes Sister Alcohol/Drug Brother other (TMJ) Brother Heart disease Maternal Grandmother No Known Problems Maternal Grandfather No Known Problems Paternal Grandmother Heart disease Paternal Grandfather Bipolar disorder Sister Alcohol/Drug Sister Social History Tobacco Use Smoking status: Never Smokeless tobacco: Never Vaping Use Vaping Use: Never used Substance Use Topics Alcohol use: Yes Drug use: Never Current Outpatient Medications Medication Sig estradiol 10 mcg vaginal suppository maintenance pack (IMVEXXY) Use 1 Suppository vaginally two times a week. acyclovir (ZOVIRAX) 400 mg tablet Take 1 tablet by mouth every 12 hours. DULoxetine (CYMBALTA) 20 mg capsule Take by mouth. No current facility-administered medications for this visit. Allergies As of Date: 06/01/2022 Allergen Noted Reaction BACTRIM [SULFAMETHOXAZOLE-TRIMETH* 020 Hives Fully Assessed 05/26/2022 REVIEW OF SYSTEMS Expanded ROS: N/A Allergies and current medication updated:Yes EXAM: BP 132/82 Wt 123 lb 14.4 oz (56.2kg) GENERAL: pleasant, female in no apparent distress HEENT: Normocephalic and atraumatic NECK: full range of motion DERMATOLOGY: Normal and without lesions CHEST: Normal inspiratory effort PELVIC: external genitalia atrophic, normal Bartholin's glands, urethra, Delcambre's glands, no vulvar lesions, no cervical lesions, good vaginal support, physiologic discharge present, normal appearing perineal body and perianal region NEURO: exam grossly non-focal EXTREMITIES: normal ASSESSMENT AND PLAN: Encounter Diagnosis ICD-10-CM 1. 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 Vaginal atrophy N95.2 CONSULT TO SMA 3. Superficial dyspareunia N94.11 CONSULT TO SMA Exam c/w atrophy again today. Cont Imvexxy for now and information given to patient on Hyaluronic acid supplement to use 2x weekly with the Imvexxy. Recommend that she see Dr. Ya Reece for another opinion and consult placed. My Borges DO Medical Decision Making: Problems: Low: Stable chronic illness Data: Unique test(s) ordered: 1 Medical Decision Making Level: 2 - Straightforward documented in this encounter [facility] 05-16-2022 Miscellaneous Notes Patient notified. Gisel Garcia RN Rx sent but please notify pt increased dose from 4 mcg to the 10 mcg pack as she did not have significant improvement. To try this before scheduled follow up and can keep appointment Last prescribed 03/17/2022 when she had her annual . see My Chart message from today documented in this encounter [facility] 03-17-2022 History of Present illness Narrative Data Entry Specialist offered: Patient declines. Aydin is a 57 year old who presents for an annual gynecologic exam without complaints. Still having vulvar and vaginal burning, dryness, pain with intercourse. 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 Comments: Sexual Activity: Not Currently; Male Contraception: No contraception data on record PAST MEDICAL HISTORY Diagnosis Date Breast mass, left 2019 Depression PAST SURGICAL HISTORY Procedure Laterality Date BX OF BREAST; INCISIONAL Left 2019 needle biopsy PAST SURGICAL HISTORY OF Laproscopic exploratory surgery due to infertility FAMILY HISTORY Problem Relation Age of Onset No Known Problems Mother possible uterine cancer Pancreatic Cancer Father 90 Diabetes Sister Alcohol/Drug Brother other (TMJ) Brother Heart disease Maternal Grandmother No Known Problems Maternal Grandfather No Known Problems Paternal Grandmother Heart disease Paternal Grandfather Bipolar disorder Sister Alcohol/Drug Sister SOCIAL HISTORY Social History Tobacco Use Smoking status: Never Smokeless tobacco: Never Vaping Use Vaping Use: Never used Substance Use Topics Alcohol use: Yes Drug use: Never REVIEW OF SYSTEMS Abdomen: No abdominal pain, nausea, vomiting, diarrhea, or constipation. No bloating, early satiety, indigestion, or increased flatulence. Bladder: No dysuria, gross hematuria, urinary frequency, urinary urgency, or incontinence Breast: No breast lumps, nipple d/c, overlying skin changes, redness or skin retraction Allergies and current medication updated:Yes EXAM: BP 100/60 Ht 5' 3.583 (1.62m) Wt 119 lb (54.0kg) BMI 20.70 kg/(m^2). GENERAL: pleasant, female in no apparent distress HEENT: Normocephalic, atraumatic, mucus membranes moist, and no lesions NECK: Supple, full range of motion, no adenopathy, and thyroid normal DERMATOLOGY: Normal, without lesions, non-icteric, and non-hirsute BREAST: soft, non-tender, symmetric, no dominant mass, normal nipple-areolar complex, no lymphadenopathy, and no nipple discharge CHEST: Normal inspiratory effort ABDOMEN: soft, non-tender, and no masses PELVIC: external genitalia atrophic, normal Bartholin's glands, urethra, Delcambre's glands, no vulvar lesions, no cervical lesions, good vaginal support, physiologic discharge present, normal appearing perineal body and perianal region, vaginal atrophy noted BIMANUAL: uterus normal size, shape and consistency, no adnexal masses, and non-tender RECTOVAGINAL: deferred. NEURO: exam grossly non-focal EXTREMITIES: normal ASSESSMENT/PLAN: 1) Health maintenance: Pap/HPV up to date. Mammogram up to date Nutrition, exercise and routine health maintenance exams reviewed. Colon cancer screening: she is calling PCP for Cologuard. Vulvar and vaginal atrophy with dyspareunia: Patient desires to try Imvexxy. She did well on Prempro and Estring in past. Will message oncologist regarding Prempro. She understands oral HRT is not typically used for vaginal/vulvar symptoms. If symptoms not improved on Imvexxy discussed: adding back in Prempro, can increase dose of Imvexxy, referral for second opinion, pelvic floor PT. 2) Follow up one year or sooner as needed My Borges DO documented in this encounter [facility] 02-16-2022 Miscellaneous Notes Called pt, questions were answered and charted under telephone encounter. Marychuy Joe RN documented in this encounter [facility] 02-16-2022 Miscellaneous Notes Called pt to talk about her questions she submitted via Chance (app). Told pt that I spoke with Dr Hill and as far as being able to label herself as in remission, per Dr Hill she is close to being able to be considered as that, and her next follow up appointment should be a determining factor as to whether she can consider herself in remission or not. But as of now, things are looking good for her. Explained that the blood tests we commonly do on pts aren't completely conclusive to give her a complete picture answer of the specific blood markers that show she has what she needs to fight infection. Explained a common test we do run frequently is the CBC which can give her a broad picture of some of the markers that show she has what she needs to fight infection. Explained we look at the WBC count, neutrophil count, lymphocytes, and eosinophils, most specifically the WBC and neutrophil count. Told pt that her results for her CBC looked good and don't lead us to believe right now that she wouldn't be able to fight off infection. Pt states that she has been off therapy now for 6 weeks, and is wondering if it would be okay to make a dental appointment to have her teeth cleaned. I told pt that this would be okay. No other questions or concerns at this point. Marychuy Joe RN documented in this encounter [facility] 02-15-2022 Miscellaneous Notes February 15, 2022 PID: [id number] Aydin Renee [facility] [place] [address] Dear Ms. Renee, We are pleased to inform you that the results of your recent breast imaging exam on 02/15/2022 are normal. Your mammogram demonstrates that you have dense breast tissue, which could hide abnormalities. Dense breast tissue, in and of itself, is a relatively common condition. Therefore, this information is not provided to cause undue concern; rather, it is to raise your awareness and promote discussion with your health care provider regarding the presence of dense breast tissue in addition to other risk factors. Early detection of cancer is very important. We also understand recommendations regarding breast cancer screening are controversial. Please discuss with your primary care provider which strategy is best for you and whether a mammogram is right for you. Your imaging studies and report will be kept on file at [facility] as part of your permanent medical record and are available for your continuing care. Thank you for allowing us to help in meeting your health care needs. Sincerely, Dr. Huff Interpreting Radiologist [facility] (Normal over 40) documented in this encounter [facility] 02-15-2022 History of Present illness Narrative Radiology Service Progress Note PATIENT NAME: Aydin Renee DATE OF SERVICE: February 15, 2022 TIME: 2:25 PM PATIENT IDENTITY VERIFICATION COMPLETED USING TWO (2) IDENTIFIERS: Name and Date of confirmed by patient verbally. FALL SCREENING: Has the patient had 2 falls in the last year or 1 fall with injury or currently using an Ambulatory Assistive Device (Walker, Cane, Wheelchair, Crutches, etc.)? No PATIENT GENDER DATA: Female. status: : No status: NO. PATIENT RELEVANT IMPLANT DATA REVIEWED: Not Applicable RADIOLOGY DEPARTMENT: Mammography PERIPHERAL IV DATA: Not applicable SIGNED BY: RT Yasmin(R) February 15, 2022 2:25 PM documented in this encounter [facility] 02-13-2022 Instructions My Borges MD - 02/13/2022 9:01 AM EDT - Jammie Stanley: Dr. Kamilla Pratt - Imvexxy - Dr. Aranda - vulvar specialist documented in this encounter [facility] 02-13-2022 History of Present illness Narrative Data Entry Specialist offered: Patient declines. Aydin Renee is a 56 year old female who presents for problem visit - vulvar symptoms. HPI: Pain at the right side of vulva that is burning type pain. No pain outside of having intercourse. Pain is only during intercourse and with insertion. Stopped Prempro and vaginal estrogen after recent cancer diagnosis. No vasomotor symptoms. No vaginal bleeding or discharge. No vulvar or vaginal pruritis. Using vaginal estrogen for 2 months now without significant improvement. 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 Comments: Sexual Activity: Yes; Male Contraception: No contraception data on record PAST MEDICAL HISTORY Diagnosis Date Breast mass, left 2019 Depression PAST SURGICAL HISTORY Procedure Laterality Date BX OF BREAST; INCISIONAL Left 2019 needle biopsy PAST SURGICAL HISTORY OF Laproscopic exploratory surgery due to infertility FAMILY HISTORY Problem Relation Age of Onset No Known Problems Mother possible uterine cancer Pancreatic Cancer Father 90 Diabetes Sister Alcohol/Drug Brother other (TMJ) Brother Heart disease Maternal Grandmother No Known Problems Maternal Grandfather No Known Problems Paternal Grandmother Heart disease Paternal Grandfather Bipolar disorder Sister Alcohol/Drug Sister Social History Tobacco Use Smoking status: Never Smokeless tobacco: Never Vaping Use Vaping Use: Never used Substance Use Topics Alcohol use: Yes Drug use: Never Current Outpatient Medications Medication Sig acyclovir (ZOVIRAX) 400 mg tablet Take 1 tablet by mouth every 12 hours. DULoxetine (CYMBALTA) 20 mg capsule Take by mouth. estradiol (ESTRACE) 0.01 % (0.1 mg/gram) vaginal cream Use 1 g vaginally two times a week. Apply pea sized amount of cream to vulva. No current facility-administered medications for this visit. Allergies As of Date: 02/13/2022 Allergen Noted Reaction BACTRIM [SULFAMETHOXAZOLE-TRIMETH* 020 Hives Fully Assessed 02/13/2022 REVIEW OF SYSTEMS Expanded ROS: N/A Allergies and current medication updated:Yes EXAM: BP 106/70 Wt 121 lb 12.8 oz (55.2kg) GENERAL: pleasant, female in no apparent distress HEENT: Normocephalic and atraumatic NECK: full range of motion PELVIC: external genitalia atrophic, normal Bartholin's glands, urethra, Delcambre's glands, no vulvar lesions, no cervical lesions, good vaginal support, physiologic discharge present, normal appearing perineal body and perianal region, vaginal atrophy noted BIMANUAL: uterus normal size, shape and consistency, no adnexal masses, non-tender, and no pelvic floor dysfunction appreciated NEURO: exam grossly non-focal EXTREMITIES: normal ASSESSMENT AND PLAN: Encounter Diagnosis ICD-10-CM 1. 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 estradiol (ESTRACE) 0.01 % (0.1 mg/gram) vaginal cream 3. Vaginal atrophy N95.2 estradiol (ESTRACE) 0.01 % (0.1 mg/gram) vaginal cream 4. Superficial dyspareunia N94.11 estradiol (ESTRACE) 0.01 % (0.1 mg/gram) vaginal cream 5. Cyst of ovary, unspecified laterality N83.209 PELVIC US WHI 6. Abnormal mammogram R92.8 [facility] 7. Encounter for screening mammogram for malignant neoplasm of breast Z12.31 [facility] Vulvar burning and dyspareunia: Exam significant for vulvar and vaginal atrophy today, and otherwise unremarkable. Discussed option for trying different vaginal insert - Imvexxy. Patient has used vaginal moisturizers and lubricants. She feels she can be more consistent about using vaginal estrogen cream, and discussed placing a pea sized amount on vulva. Recommend if no improvement with vaginal estrogen cream either trying Imvexxy and/or seeing Dr. Aranda for a consultation. Consult order placed to Dr. Aranda. Ovarian cyst noted on CT scan: Pelvic US ordered. Discussed likely benign based on size and stability. If simple appearing on US recommend following yearly. RTO mammogram and annual exam. My Borges DO Medical Decision Making: Problems: Moderate: 1+ chronic illnesses with change Risk: Moderate: Drug management Medical Decision Making Level: 4 - Moderate documented in this encounter [facility] 02-10-2022 History of Present illness Narrative Evusheld (tixagevimab/cilgavimab) Eligibility and Patient Discussion [facility] Formulary Restriction Criteria: Outpatient adults and pediatrics 12 years and older and > 40 kg with ALL of the following: [x] COVID test scheduled: No Date: TBD, type of test:Home antigen [x] Patient has not been exposed to a SARS-COV-2 positive individual ([facility] information on COVID exposure link) [x] Patient is not exhibiting symptoms of SARS-COV-2 infection [x] Patient is able to come in to the clinic for the Evusheld injection [x] Meeting at least one criteria below: [x] Active treatment for solid tumor and hematologic malignancies [] Receipt of solid-organ transplant and taking immunosuppressive therapy [] Receipt of chimeric antigen receptor (CAR)-T-cell or hematopoietic stem cell transplant (within 2 years of transplantation or taking immunosuppressive therapy) [] Moderate or severe primary immunodeficiency (e.g. DiGeorge syndrome, Wiskott-Aldrick syndrome) [] Advanced or untreated HIV infection (people with HIV and CD4 cell counts < 200/mm3, history of an AIDS-defining illness without immune reconstitution, or clinical manifestations of symptomatic HIV) [] Active treatment with high-dose corticosteroids (i.e., >20 mg prednisone or equivalent per day when administered for > 2 weeks), alkylating agents, antimetabolites, transplant-related immunosuppressive drugs, cancer chemotherapeutic agents classified as severely immunosuppressive, and other biologic agents that are significantly immunosuppressive (e.g., B-cell depleting agents, cyclophosphamide) [] Other moderate to severely immunocompromising condition: n/a [] Patients for whom vaccination with any COVID-19 vaccine, according to the approved or authorized schedule, is not recommended due to a history of severe adverse reaction (e.g. severe allergic reaction) to a COVID-19 vaccine(s) and/or COVID-19 vaccine components Criteria above are met: Yes Patient received COVID vaccine: Yes Last dose of COVID vaccine is greater than 14 days prior to the planned injection date of Evusheld: Yes Laboratory and comorbidity assessment: Platelet Count (k/uL) Date Value 02/08/2022 299 12/28/2021 275 Last platelet count greater than 20 k/uL: Yes. If on warfarin, most recent INR should be within therapeutic range: not applicable Cardiovascular disease history: No. I have discussed the use of the investigational therapeutic, Evusheld (tixagevimab/cilgevimab), for pre-exposure prophylaxis of COVID-19 infection and its use under Emergency Use Authorization with the patient. The patient was informed that tixagevimab/cilgevimab is not an FDA approved drug and that it is authorized for use under this Emergency Use Authorization. The patient was also informed of the significant known benefits and potential risks of tixagevimab/cilgevimab, and the extent to which such potential risks and benefits are unknown. The patient was informed that there is mandatory reporting of all medication errors and serious adverse events potentially related to tixagevimab/cilgevimab treatment within 7 calendar days from the onset of the event. The discussion included alternatives to receiving tixagevimab/cilgevimab, including clinical trials, and potential the risks and benefits of those alternatives. The patient was provided electronically with the Fact Sheet for Patients, Parents and Caregivers . The patient stated understanding and gave verbal consent to proceeding with tixagevimab/cilgevimab treatment. Karo Hill MD February 10, 2022 10:59 AM documented in this encounter [facility] 02-10-2022 Instructions Karo Hill MD - 02/10/2022 10:58 AM EDT Fact Sheet for Patients, Parents And Caregivers Emergency Use Authorization (EUA) of EVUSHELD (tixagevimab co-packaged with cilgavimab) for Coronavirus Disease 2019 (COVID-19) You are being given this Fact Sheet because your healthcare provider believes it is necessary to provide you with EVUSHELD (tixagevimab co-packaged with cilgavimab) for pre-exposure prophylaxis for prevention of coronavirus disease 2019 (COVID-19) caused by the SARS-CoV-2 virus. This Fact Sheet contains information to help you understand the potential risks and potential benefits of taking EVUSHELD, which you have received or may receive. The [place]. Food and Drug Administration (FDA) has issued an Emergency Use Authorization (EUA) to make EVUSHELD available during the COVID-19 pandemic (for more details about an EUA please see What is an Emergency Use Authorization? at the end of this document). EVUSHELD is not an FDA-approved medicine in the [place]. Read this Fact Sheet for information about EVUSHELD. Talk to your healthcare provider if you have any questions. It is your choice to receive or not receive EVUSHELD. What is COVID-19? COVID-19 is caused by a virus called a coronavirus. You can get COVID-19 through close contact with another person who has the virus. COVID-19 illnesses have ranged from very mild (including some with no reported symptoms) to severe, including illness resulting in . While information so far suggests that most COVID-19 illness is mild, serious illness can happen and may cause some of your other medical conditions to become worse. Older people and people of all ages with severe, long-lasting (chronic) medical conditions like heart disease, lung disease, and diabetes, for example, seem to be at higher risk of being hospitalized for COVID-19. What is EVUSHELD (tixagevimab co-packaged with cilgavimab)? EVUSHELD is an investigational medicine used in adults and adolescents (12 years of age and older who weigh at least 88 pounds [40 kg]) for pre-exposure prophylaxis for prevention of COVID-19 in persons who are: not currently infected with SARS-CoV-2 and who have not had recent known close contact with someone who is infected with SARS-CoV-2 and Who have moderate to severe immune compromise due to a medical condition or have received immunosuppressive medicines or treatments and may not mount an adequate immune response to COVID-19 vaccination or For whom vaccination with any available COVID-19 vaccine, according to the approved or authorized schedule, is not recommended due to a history of severe adverse reaction (such as severe allergic reaction) to a COVID-19 vaccine(s) or COVID-19 vaccine ingredient(s). EVUSHELD is investigational because it is still being studied. There is limited information known about the safety and effectiveness of using EVUSHELD for pre-exposure prophylaxis for prevention of COVID-19. EVUSHELD is not authorized for post-exposure prophylaxis for prevention of COVID-19. The FDA has authorized the emergency use of EVUSHELD for pre-exposure prophylaxis for prevention of COVID-19 under an Emergency Use Authorization (EUA). What should I tell my healthcare provider before I receive EVUSHELD? Tell your healthcare provider if you: Have any allergies, including if you have had a severe allergic reaction to a COVID-19 vaccine Have low numbers of blood platelets (which help blood clotting), a bleeding disorder, or are taking anticoagulants (to prevent blood clots) Have had a heart attack or stroke, have other heart problems, or are at high-risk of cardiac (heart) events Are or plan to become Are a child Have any serious illness Are taking any medications (prescription, [id number], vitamins, or herbal products) How will I receive EVUSHELD? EVUSHELD consists of two investigational medicines, tixagevimab and cilgavimab. You will receive 1 dose of EVUSHELD, consisting of 2 separate injections (tixagevimab and cilgavimab). EVUSHELD will be given to you by your healthcare provider as 2 intramuscular injections, given one after the other. Viruses can jacket changer time (mutate) and develop into a slightly different form of the virus, called a variant. Based on what we know about current SARS-CoV-2 variants, you will need to receive additional doses of EVUSHELD every 6 months if ongoing protection is needed. Talk to your healthcare provider for more information. Who should generally not take EVUSHELD? Do not take EVUSHELD if you have had a severe allergic reaction to EVUSHELD. What are the important possible side effects of EVUSHELD? Possible side effects of EVUSHELD are: Allergic reactions. Allergic reactions can happen during and after injection of EVUSHELD and can sometimes be serious or life-threatening. You may have an increased risk of allergic reaction with EVUSHELD if you have had a severe allergic reaction to a COVID-19 vaccine. EVUSHELD contains polysorbate 80, an ingredient in some COVID-19 vaccines. Also, polysorbate 80 is similar to polyethylene glycol (PEG), an ingredient in other COVID-19 vaccines. Your healthcare provider may consult with a healthcare provider who specializes in allergy and immunology before giving you EVUSHELD if you have had a serious allergic reaction to a COVID-19 vaccine. Your healthcare provider will monitor you for allergic reactions during and for at least 1 hour after you receive EVUSHELD. Tell your healthcare provider right away if you get any of the following signs and symptoms of an allergic reaction during or after you receive EVUSHELD: trouble breathing or shortness of breath, hives, wheezing, chills, itching, tiredness or weakness, skin flushing, fast heart rate, sweating, chest pain or discomfort, muscle aches, nausea and vomiting, you feel lightheaded or faint, swelling of your face, lips, mouth and tongue, throat tightness. Cardiac (heart) events: Serious cardiac adverse events have happened, but were not common, in people who received EVUSHELD and also in people who did not receive EVUSHELD in the clinical trial studying pre-exposure prophylaxis for prevention of COVID-19. In people with risk factors for cardiac events (including a history of heart attack), more people who received EVUSHELD experienced serious cardiac events than people who did not receive EVUSHELD. It is not known if these events are related to EVUSHELD or underlying medical conditions. Contact your healthcare provider or get medical help right away if you get any symptoms of cardiac events, including pain, pressure, or discomfort in the chest, arms, neck, back, stomach or jaw, as well as shortness of breath, feeling tired or weak (fatigue), feeling sick (nausea), or swelling in your ankles or lower legs. The side effects of getting any medicine by intramuscular injection may include pain, bruising of the skin, soreness, swelling, and possible bleeding or infection at the injection site. These are not all the possible side effects of EVUSHELD. Not a lot of people have been given EVUSHELD. Serious and unexpected side effects may happen. EVUSHELD is still being studied so it is possible that all of the risks are not known at this time. It is possible that EVUSHELD may reduce your body s immune response to a COVID-19 vaccine. If you have received a COVID-19 vaccine, you should wait to receive EVUSHELD until at least 2 weeks after COVID-19 vaccination. What other prevention choices are there? Vaccines to prevent COVID-19 are approved or available under Emergency Use Authorization. Use of EVUSHELD does not replace vaccination against COVID-19. For more information about other medicines authorized for treatment or prevention of COVID-19 go to https://www.fda.gov/emergency-pre jkuccicil-xeg-yydnjeuo/mcm-legal- yzhjrkksdl-pgp-fsvppy-framework/e axjzelxw-vdl-pdjleyaddqcxe. It is your choice to receive or not receive EVUSHELD. Should you decide not to receive EVUSHELD, it will not change your standard medical care. EVUSHELD is not authorized for post-exposure prophylaxis of COVID-19. What if I am or ? If you are or , discuss your options and specific situation with your healthcare provider. How do I report side effects with EVUSHELD? Contact your healthcare provider if you have any side effects that bother you or do not go away. Report side effects to FDA MedWatch at www.fda.gov/medwatch or call 9-044-KSU-0066 or call [employer] at . Additional Information If you have questions, visit the website or call the telephone number provided below. To access the most recent EVUSHELD Fact Sheets, please scan the QR code provided below. Website Telephone number [email or web address] How can I learn more about COVID-19? Ask your healthcare provider. Visit https://www.cdc.gov/COVID19 Contact your local or state public health department. What is an Emergency Use Authorization? The [place] FDA has made EVUSHELD (tixagevimab co-packaged with cilgavimab) available under an emergency access mechanism called an Emergency Use Authorization EUA. The EUA is supported by a [place] of Health and Human Service (HHS) declaration that circumstances exist to justify the emergency use of drugs and biological products during the COVID-19 pandemic. EVUSHELD for pre-exposure prophylaxis for prevention of coronavirus disease 2019 (COVID-19) caused by the SARS-CoV-2 virus has not undergone the same type of review as an FDA-approved product. In issuing an EUA under the COVID-19 public health emergency, the FDA has determined, among other things, that based on the total amount of scientific evidence available including data from adequate and well-controlled clinical trials, if available, it is reasonable to believe that the product may be effective for diagnosing, treating, or preventing COVID-19, or a serious or life-threatening disease or condition caused by COVID-19; that the known and potential benefits of the product, when used to diagnose, treat, or prevent such disease or condition, outweigh the known and potential risks of such product; and that there are no adequate, approved and available alternatives. All of these criteria must be met to allow for the product to be used in the treatment of patients during the COVID-19 pandemic. The EUA for EVUSHELD is in effect for the duration of the COVID-19 declaration justifying emergency use of EVUSHELD, unless terminated or revoked (after which EVUSHELD may no longer be used under the EUA). What are the ingredients in EVUSHELD? Each EVUSHELD co-packaged carton contains 2 vials. Active ingredient: Each of the vials contains either: tixagevimab or cilgavimab Inactive ingredients: Each vial contains L- histidine, L- histidine hydrochloride monohydrate, polysorbate 80, sucrose, water. Distributed by: [employer] [place], [place] Manufactured for: [employer] [place] [place] [employer] 2021. All rights reserved. documented in this encounter [facility] 02-10-2022 Nurse Note Additional intake questions: Has the patient had fever, nausea, vomiting, diarrhea, constipation, fatigue for > 1 week? Yes, fatigue and Provider Notified Does the patient have a decreased appetite? No Does patient want to see a Agricultural Mechanic? No (yes to any of above refer patient to schedulers for dietitian appointment) ) Does patient have any new or increased numbness or tingling of extremities? No Is patient interested in fertility information? No Does patient need any prescription refills? No Does patient have an advanced directive in place? 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 INTERIM HISTORY: Nursing notes reviewed; agree with findings as documented. Ms. Renee returns after cycle 6 of treatment. She tolerated the last cycle without major side effect issues. She had fleeting episodes of slight nausea but did not require medication. Peripheral venous access continues to be a challenge. Her blood draw earlier this week was difficult. She still feels somewhat tired overall but denies subjective lymphadenopathy or constitutional symptoms. She is scheduled for a follow-up visit with her woven label designer next week. She decided not to proceed with receiving Evusheld after her last appointment, explaining that at the time she was feeling frustrated about being stuck with needles for so many things. After reflection she has decided now that she would like to move forward with the treatment. MEDICATIONS: Per Rayn. REVIEW OF SYSTEMS: As described above. ECOG PS = 1. PHYSICAL EXAMINATION: VITAL SIGNS: BP 129/65 Pulse 63 Temp 36.7 C (98 F) (Oral) Resp 16 Wt 54.8 kg (120 lb 12.8 oz) SpO2 100% BMI 20.93 kg/m GENERAL: well-appearing middle-aged woman in no acute distress. HEAD, EYES, EARS, NOSE, AND THROAT: Normocephalic, atraumatic. Extraocular movements intact, sclerae anicteric. The oropharynx is clear. NECK: Supple, no lymphadenopathy or masses. CHEST: Clear to auscultation. No rales, wheezes, or rhonchi. CARDIAC: Regular rate and rhythm, normal S1 and S2. No murmurs. ABDOMEN: Abdomen soft, non-tender. Bowel sounds normal. No masses, organomegaly. EXTREMITIES: Warm, no edema. LYMPH NODES: No axillary or inguinal lymphadenopathy. MUSCULOSKELETAL: No spinal tenderness to palpation. No obvious deformity. SKIN: No rash or suspicious lesions. DIAGNOSTIC STUDIES: Component Latest Ref Rng & Units 02/08/2022 WBC 3.70 - 11.00 k/uL 3.54 (L) RBC 3.90 - 5.20 m/uL 3.68 (L) Hemoglobin 11.5 - 15.5 g/dL 12.6 Hematocrit 36.0 - 46.0 % 37.5 MCV 80.0 - 100.0 fL 101.9 (H) MCH 26.0 - 34.0 pg 34.2 (H) MCHC 30.5 - 36.0 g/dL 33.6 RDW-CV 11.5 - 15.0 % 12.0 Platelet Count 150 - 400 k/uL 299 MPV 9.0 - 12.7 fL 10.0 Neut% % 61.9 Abs Neut (ANC) 1.45 - 7.50 k/uL 2.19 Lymph% % 9.3 Abs Lymph 1.00 - 4.00 k/uL 0.33 (L) [place]% % 14.1 Abs [place] <0.87 k/uL 0.50 Eosin% % 13.3 Abs Eosin <0.46 k/uL 0.47 (H) Baso% % 1.1 Abs Baso <0.11 k/uL 0.04 Immature Gran % % 0.3 IMMATURE GRANS (ABS) <0.10 k/uL <0.03 NRBC /100 WBC 0.0 Absolute nRBC <0.01 k/uL <0.01 DTYPE Auto Protein, Total 6.3 - 8.0 g/dL 6.5 Albumin 3.9 - 4.9 g/dL 4.1 Calcium 8.5 - 10.2 mg/dL 9.5 Bilirubin, Total 0.2 - 1.3 mg/dL 0.5 Alkaline Phosphatase 34 - 123 U/L 84 AST 13 - 35 U/L 30 ALT 7 - 38 U/L 18 Glucose 74 - 99 mg/dL 80 BUN 7 - 21 mg/dL 11 Creatinine 0.58 - 0.96 mg/dL 0.69 Sodium 136 - 144 mmol/L 142 Potassium 3.7 - 5.1 mmol/L 4.7 Chloride 97 - 105 mmol/L 105 CO2 22 - 30 mmol/L 24 Anion Gap 9 - 18 mmol/L 13 eGFR >=60 mL/min/1.73m 101 CT neck, chest, abdomen, and pelvis,02/08/2022: Previously pathologic left supraclavicular lymph nodes have substantially decreased in size from the PET/CT dated 07/20/2021 and appear essentially stable from the more recent CT chest dated 11/01/2021. No enlarging or pathologically enlarged lymph nodes in the neck. No CT evidence of active disease in the chest. There has been little interval change since the exam dated 11/01/2021. Decreased size of the retroperitoneal and mesenteric adenopathy since 11/01/2021. Slightly increased mild left hydronephrosis. Stable 1.5 cm right ovarian cyst. IMPRESSION AND PLAN: 1. Follicular lymphoma: excellent, near-complete response to front-line treatment with bendamustine and rituximab. It is unlikely that maintenance rituximab will provide a significant incremental benefit, and I recommended observation without further treatment. Ms. Renee is in agreement. I will see her for follow-up in [address] scans in 6 months. 2. IV access: Peripheral IV access is marginal; anticipate that a port will be needed for further treatment in the future. 3. ID: No acute issues. Continue acyclovir prophylaxis through 06/2022. She will reschedule her Evusheld treatment. 4. Right ovarian cyst: Stable on serial imaging (present on baseline CT scan in 07/2021, although not reported). Advised Ms. Renee to discuss whether further work-up is warranted when she sees her woven label designer, Dr. Borges, at their upcoming appointment. I spent a total of 35 minutes on the date of the service which included preparing to see the patient, [id number] patient care, completing clinical documentation, obtaining and/or reviewing separately obtained history, performing a medically appropriate examination, counseling and educating the patient/family/caregiver, and ordering medications, tests, or procedures. Karo Hill MD cc: Sergio Landaverde MD; ; documented in this encounter [facility] 02-08-2022 History of Present illness Narrative Radiology Service Progress Note DATE OF SERVICE: February 08, 2022 TIME: 9:44 AM PATIENT WEIGHT: 119LBS PATIENT IDENTITY VERIFICATION COMPLETED USING TWO (2) STANDARD IDENTIFIERS: Name and Date of confirmed by patient verbally and Name and Date of confirmed by identification band. FALL SCREENING: Has the patient had 2 falls in the last year or 1 fall with injury or currently using an Ambulatory Assistive Device (Walker, Cane, Wheelchair, Crutches, etc.)? No PATIENT GENDER DATA: Female. status: : No status: NO. ALLERGIES: Reviewed and unchanged CONTRAST ALLERGY: No EXAM: CT -CONTRAST INDUCED NEPHROPATHY RISK FACTORS: History of Kidney surgery, Kidney neoplasm, Liver disease, and/or any recent Nephrotoxic Chemotherapy or other Nephrotoxic medications CREATININE: Creatinine Date Value Ref Range Status 12/28/2021 0.63 0.58 - 0.96 mg/dL Final 11/30/2021 0.77 0.58 - 0.96 mg/dL Final Creatinine (POCT) Date Value Ref Range Status 02/08/2022 0.70 0.7 - 1.4 mg/dL Final eGFR (POCT) Date Value Ref Range Status 02/08/2022 >60 mL/min/1.73 m2 Final eGFR- Date Value Ref Range Status 08/11/2021 >60 Final P.O.C.T. RESULTS: POC done: Yes, See Lab Tab February 08, 2022 TREATMENT: No Hydration needed. IV SITE: Ambulatory: A peripheral IV was started in the Right antecubital site with a Angio cath: 22 gauge. IV SITE APPEARANCE: Clean,Dry and Intact SIGNATURE: Keerthi Villalta RN PATIENT NAME: Aydin Renee DATE: February 08, 2022 TIME: 9:44 AM Radiology Service Progress Note PATIENT NAME: Aydin Renee DATE OF SERVICE: February 08, 2022 TIME: 10:01 AM PATIENT IDENTITY VERIFICATION COMPLETED USING TWO (2) IDENTIFIERS: Name and Date of confirmed by patient verbally and Name and Date of confirmed by identification band. FALL SCREENING: Has the patient had 2 falls in the last year or 1 fall with injury or currently using an Ambulatory Assistive Device (Walker, Cane, Wheelchair, Crutches, etc.)? No PATIENT GENDER DATA: Female. status: : No status: NO. PATIENT RELEVANT IMPLANT DATA REVIEWED: Yes RADIOLOGY DEPARTMENT: CT; Exam(s) Completed: Chest Abdomen Pelvis and Neck PERIPHERAL IV DATA: Site assessment: Clean,Dry and Intact, Site disposition Discontinued SIGNED BY: RT Abraham(R) February 08, 2022 10:01 AM documented in this encounter [facility] 12-29-2021 History of Present illness Narrative Pt states she doesn't want to receive evusheld injections. Dr. Hill notified. documented in this encounter [facility] 12-28-2021 Nurse Note Patient ID confirmed Patient is currently asymptomatic COVID19 swab ordered by Arabella Hill Procedure explained, swab completed. Specimen hand delivered to [facility] lab. Patient given printed COVID19 prevention instructions Norah Kaplan RN 11:30 AM December 28, 2021 Additional intake questions: Has the patient had fever, nausea, vomiting, diarrhea, constipation, fatigue for > 1 week? No Does the patient have a decreased appetite? No Does patient want to see a Agricultural Mechanic? No (yes to any of above refer patient to schedulers for dietitian appointment) ) Does patient have any new or increased numbness or tingling of extremities? No Is patient interested in fertility information? No Does patient need any prescription refills? No Does patient have an advanced directive in place? Yes, no copy found in [facility] pt to bring to Nurse next visit documented in this encounter [facility] 12-28-2021 History of Present illness Narrative Evusheld (tixagevimab/cilgavimab) Eligibility and Patient Discussion [facility] Formulary Restriction Criteria: Outpatient adults and pediatrics 12 years and older and > 40 kg with ALL of the following: [x] COVID test scheduled: Yes Date: 12/28/2021, type of test:Laboratory collected [x] Patient has not been exposed to a SARS-COV-2 positive individual (CDC information on COVID exposure link) [x] Patient is not exhibiting symptoms of SARS-COV-2 infection [x] Patient is able to come in to the clinic for the Evusheld injection [x] Meeting at least one criteria below: [x] Active treatment for solid tumor and hematologic malignancies [] Receipt of solid-organ transplant and taking immunosuppressive therapy [] Receipt of chimeric antigen receptor (CAR)-T-cell or hematopoietic stem cell transplant (within 2 years of transplantation or taking immunosuppressive therapy) [] Moderate or severe primary immunodeficiency (e.g. DiGeorge syndrome, Wiskott-Aldrick syndrome) [] Advanced or untreated HIV infection (people with HIV and CD4 cell counts < 200/mm3, history of an AIDS-defining illness without immune reconstitution, or clinical manifestations of symptomatic HIV) [] Active treatment with high-dose corticosteroids (i.e., >20 mg prednisone or equivalent per day when administered for > 2 weeks), alkylating agents, antimetabolites, transplant-related immunosuppressive drugs, cancer chemotherapeutic agents classified as severely immunosuppressive, and other biologic agents that are significantly immunosuppressive (e.g., B-cell depleting agents, cyclophosphamide) [] Other moderate to severely immunocompromising condition: n/a [] Patients for whom vaccination with any COVID-19 vaccine, according to the approved or authorized schedule, is not recommended due to a history of severe adverse reaction (e.g. severe allergic reaction) to a COVID-19 vaccine(s) and/or COVID-19 vaccine components Criteria above are met: Yes Patient received COVID vaccine: Yes Last dose of COVID vaccine is greater than 14 days prior to the planned injection date of Evusheld: Yes Laboratory and comorbidity assessment: Platelet Count (k/uL) Date Value 12/28/2021 275 11/30/2021 275 Last platelet count greater than 20 k/uL: Yes. If on warfarin, most recent INR should be within therapeutic range: not applicable Cardiovascular disease history: No. I have discussed the use of the investigational therapeutic, Evusheld (tixagevimab/cilgevimab), for pre-exposure prophylaxis of COVID-19 infection and its use under Emergency Use Authorization with the patient. The patient was informed that tixagevimab/cilgevimab is not an FDA approved drug and that it is authorized for use under this Emergency Use Authorization. The patient was also informed of the significant known benefits and potential risks of tixagevimab/cilgevimab, and the extent to which such potential risks and benefits are unknown. The patient was informed that there is mandatory reporting of all medication errors and serious adverse events potentially related to tixagevimab/cilgevimab treatment within 7 calendar days from the onset of the event. The discussion included alternatives to receiving tixagevimab/cilgevimab, including clinical trials, and potential the risks and benefits of those alternatives. The patient was provided electronically with the Fact Sheet for Patients, Parents and Caregivers . The patient stated understanding and gave verbal consent to proceeding with tixagevimab/cilgevimab treatment. Karo Hill MD December 28, 2021 11:26 AM documented in this encounter [facility] 12-28-2021 Instructions Karo Hill MD - 12/28/2021 11:25 AM EDT Fact Sheet for Patients, Parents And Caregivers Emergency Use Authorization (EUA) of EVUSHELD (tixagevimab co-packaged with cilgavimab) for Coronavirus Disease 2019 (COVID-19) You are being given this Fact Sheet because your healthcare provider believes it is necessary to provide you with EVUSHELD (tixagevimab co-packaged with cilgavimab) for pre-exposure prophylaxis for prevention of coronavirus disease 2019 (COVID-19) caused by the SARS-CoV-2 virus. This Fact Sheet contains information to help you understand the potential risks and potential benefits of taking EVUSHELD, which you have received or may receive. The [place] Food and Drug Administration (FDA) has issued an Emergency Use Authorization (EUA) to make EVUSHELD available during the COVID-19 pandemic (for more details about an EUA please see What is an Emergency Use Authorization? at the end of this document). EVUSHELD is not an FDA-approved medicine in the [place]. Read this Fact Sheet for information about EVUSHELD. Talk to your healthcare provider if you have any questions. It is your choice to receive or not receive EVUSHELD. What is COVID-19? COVID-19 is caused by a virus called a coronavirus. You can get COVID-19 through close contact with another person who has the virus. COVID-19 illnesses have ranged from very mild (including some with no reported symptoms) to severe, including illness resulting in . While information so far suggests that most COVID-19 illness is mild, serious illness can happen and may cause some of your other medical conditions to become worse. Older people and people of all ages with severe, long-lasting (chronic) medical conditions like heart disease, lung disease, and diabetes, for example, seem to be at higher risk of being hospitalized for COVID-19. What is EVUSHELD (tixagevimab co-packaged with cilgavimab)? EVUSHELD is an investigational medicine used in adults and adolescents (12 years of age and older who weigh at least 88 pounds [40 kg]) for pre-exposure prophylaxis for prevention of COVID-19 in persons who are: not currently infected with SARS-CoV-2 and who have not had recent known close contact with someone who is infected with SARS-CoV-2 and o Who have moderate to severe immune compromise due to a medical condition or have received immunosuppressive medicines or treatments and may not mount an adequate immune response to COVID-19 vaccination or o For whom vaccination with any available COVID-19 vaccine, according to the approved or authorized schedule, is not recommended due to a history of severe adverse reaction (such as severe allergic reaction) to a COVID-19 vaccine(s) or COVID-19 vaccine ingredient(s). EVUSHELD is investigational because it is still being studied. There is limited information known about the safety and effectiveness of using EVUSHELD for pre-exposure prophylaxis for prevention of COVID-19. EVUSHELD is not authorized for post-exposure prophylaxis for prevention of COVID-19. The FDA has authorized the emergency use of EVUSHELD for pre-exposure prophylaxis for prevention of COVID-19 under an Emergency Use Authorization (EUA). What should I tell my healthcare provider before I receive EVUSHELD? Tell your healthcare provider if you: Have any allergies Have low numbers of blood platelets (which help blood clotting), a bleeding disorder, or are taking anticoagulants (to prevent blood clots) Have had a heart attack or stroke, have other heart problems, or are at high-risk of cardiac (heart) events Are or plan to become Are a child Have any serious illness Are taking any medications (prescription, lnmy-gcw-lgqpyus, vitamins, or herbal products) How will I receive EVUSHELD? EVUSHELD consists of two investigational medicines, tixagevimab and cilgavimab. You will receive 1 dose of EVUSHELD, consisting of 2 separate injections (tixagevimab and cilgavimab). EVUSHELD will be given to you by your healthcare provider as 2 intramuscular injections, given one after the other. You may need to receive additional doses of EVUSHELD for ongoing protection. Viruses can jacket changer time (mutate) and develop into a slightly different form of the virus, called a variant. The duration that EVUSHELD will protect you from infection may change with certain variants. The best timing for you to receive additional doses of EVUSHELD, if needed, is not known right now, because this depends on which SARS-CoV-2 variants will be present in the future. Talk to your healthcare provider about receiving additional doses of EVUSHELD for ongoing protection and for further instructions. You can keep up-to-date with the latest information by visiting [email or web address] or by scanning the QR code, below: Who should generally not take EVUSHELD? Do not take EVUSHELD if you have had a severe allergic reaction to EVUSHELD or any ingredient in EVUSHELD. What are the important possible side effects of EVUSHELD? Possible side effects of EVUSHELD are: Allergic reactions. Allergic reactions can happen during and after injection of EVUSHELD. Tell your healthcare provider right away if you get any of the following signs and symptoms of allergic reactions: fever, chills, nausea, headache, shortness of breath, low or high blood pressure, rapid or slow heart rate, chest discomfort or pain, weakness, confusion, feeling tired, wheezing, swelling of your lips, face, or throat, rash including hives, itching, muscle aches, dizziness and sweating. These reactions may be severe or life threatening. Cardiac (heart) events: Serious cardiac adverse events have happened, but were not common, in people who received EVUSHELD and also in people who did not receive EVUSHELD in the clinical trial studying pre-exposure prophylaxis for prevention of COVID-19. In people with risk factors for cardiac events (including a history of heart attack), more people who received EVUSHELD experienced serious cardiac events than people who did not receive EVUSHELD. It is not known if these events are related to EVUSHELD or underlying medical conditions. Contact your healthcare provider or get medical help right away if you get any symptoms of cardiac events, including pain, pressure, or discomfort in the chest, arms, neck, back, stomach or jaw, as well as shortness of breath, feeling tired or weak (fatigue), feeling sick (nausea), or swelling in your ankles or lower legs. The side effects of getting any medicine by intramuscular injection may include pain, bruising of the skin, soreness, swelling, and possible bleeding or infection at the injection site. These are not all the possible side effects of EVUSHELD. Not a lot of people have been given EVUSHELD. Serious and unexpected side effects may happen. EVUSHELD is still being studied so it is possible that all of the risks are not known at this time. It is possible that EVUSHELD may reduce your body s immune response to a COVID-19 vaccine. If you have received a COVID-19 vaccine, you should wait to receive EVUSHELD until at least 2 weeks after COVID-19 vaccination. What other prevention choices are there? Vaccines to prevent COVID-19 are approved or available under Emergency Use Authorization. Use of EVUSHELD does not replace vaccination against COVID-19. For more information about other medicines authorized for treatment or prevention of COVID-19 go to https://www.fda.gov/emergency-pre vicxzaizg-tgt-cscfifla/mcm-legal- dsvoaihupy-iae-uukgur-framework/e bglixhdo-pbe-ftbxtsftprzbh. It is your choice to receive or not receive EVUSHELD. Should you decide not to receive EVUSHELD, it will not change your standard medical care. EVUSHELD is not authorized for post-exposure prophylaxis of COVID-19. What if I am or ? If you are or , discuss your options and specific situation with your healthcare provider. How do I report side effects with EVUSHELD? Contact your healthcare provider if you have any side effects that bother you or do not go away. Report side effects to FDA MedWatch at www.fda.gov/medwatch or call 6-854-SWR-9519 or call [employer] at . Additional Information If you have questions, visit the website or call the telephone number provided below. To access the most recent EVUSHELD Fact Sheets, please scan the QR code provided below. Website Telephone number [email or web address] How can I learn more about COVID-19? Ask your healthcare provider. Visit https://www.cdc.gov/COVID19 Contact your local or state public health department. What is an Emergency Use Authorization? The [place] FDA has made EVUSHELD (tixagevimab co-packaged with cilgavimab) available under an emergency access mechanism called an Emergency Use Authorization EUA. The EUA is supported by a [place] of Health and Human Service (HHS) declaration that circumstances exist to justify the emergency use of drugs and biological products during the COVID-19 pandemic. EVUSHELD for pre-exposure prophylaxis for prevention of coronavirus disease 2019 (COVID-19) caused by the SARS-CoV-2 virus has not undergone the same type of review as an FDA-approved product. In issuing an EUA under the COVID-19 public health emergency, the FDA has determined, among other things, that based on the total amount of scientific evidence available including data from adequate and well-controlled clinical trials, if available, it is reasonable to believe that the product may be effective for diagnosing, treating, or preventing COVID-19, or a serious or life-threatening disease or condition caused by COVID-19; that the known and potential benefits of the product, when used to diagnose, treat, or prevent such disease or condition, outweigh the known and potential risks of such product; and that there are no adequate, approved and available alternatives. All of these criteria must be met to allow for the product to be used in the treatment of patients during the COVID-19 pandemic. The EUA for EVUSHELD is in effect for the duration of the COVID-19 declaration justifying emergency use of EVUSHELD, unless terminated or revoked (after which EVUSHELD may no longer be used under the EUA). Distributed by: [employer], [place], [place] Manufactured by: [employer], [address] [facility], [facility], [facility] [address], [place] [employer] 2020. All rights reserved. 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 INTERIM HISTORY: Nursing notes reviewed; agree with findings as documented. Ms. Renee returns after cycle 5 of treatment. She had a couple of episodes of nausea and one bout of vomiting but overall her symptoms have been manageable and controlled with prochlorperazine when needed. No fevers. No subjective lymphadenopathy. She has questions about her infection risk and guidelines for precautions going forward. MEDICATIONS: Per Rayn. REVIEW OF SYSTEMS: As described above. ECOG PS = 0. PHYSICAL EXAMINATION: VITAL SIGNS: BP 126/80 Pulse 65 Temp 36.3 C (97.4 F) (Temporal) Resp 18 Wt 54.2 kg (119 lb 8 oz) SpO2 100% BMI 20.71 kg/m GENERAL: well-appearing middle-aged woman in no acute distress. HEAD, EYES, EARS, NOSE, AND THROAT: Normocephalic, atraumatic. Extraocular movements intact, sclerae anicteric. The oropharynx is clear. NECK: Supple, no lymphadenopathy or masses. CHEST: Clear to auscultation. No rales, wheezes, or rhonchi. CARDIAC: Regular rate and rhythm, normal S1 and S2. No murmurs. ABDOMEN: Abdomen soft, non-tender. Bowel sounds normal. No masses, organomegaly. EXTREMITIES: Warm, no edema. LYMPH NODES: No axillary or inguinal lymphadenopathy. MUSCULOSKELETAL: No spinal tenderness to palpation. No obvious deformity. SKIN: No rash or suspicious lesions. DIAGNOSTIC STUDIES: Component Latest Ref Rng & Units 12/28/2021 WBC 3.70 - 11.00 k/uL 4.32 RBC 3.90 - 5.20 m/uL 3.81 (L) Hemoglobin 11.5 - 15.5 g/dL 13.2 Hematocrit 36.0 - 46.0 % 38.2 MCV 80.0 - 100.0 fL 100.3 (H) MCH 26.0 - 34.0 pg 34.6 (H) MCHC 30.5 - 36.0 g/dL 34.6 RDW-CV 11.5 - 15.0 % 12.2 Platelet Count 150 - 400 k/uL 275 MPV 9.0 - 12.7 fL 9.8 Abs Neut (ANC) 1.45 - 7.50 k/uL 2.82 Protein, Total 6.3 - 8.0 g/dL 6.8 Albumin 3.9 - 4.9 g/dL 4.2 Calcium 8.5 - 10.2 mg/dL 9.1 Bilirubin, Total 0.2 - 1.3 mg/dL 0.2 Alkaline Phosphatase 34 - 123 U/L 86 AST 13 - 35 U/L 38 (H) ALT 7 - 38 U/L 16 Glucose 74 - 99 mg/dL 90 BUN 7 - 21 mg/dL 13 Creatinine 0.58 - 0.96 mg/dL 0.63 Sodium 136 - 144 mmol/L 139 Potassium Chloride 97 - 105 mmol/L 107 (H) CO2 22 - 30 mmol/L 20 (L) Anion Gap 9 - 18 mmol/L 12 eGFR >=60 mL/min/1.73m 103 IMPRESSION AND PLAN: 1. Follicular lymphoma: Doing well on treatment. Proceed with last cycle of BR today. RTC in approximately [address] scans. 2. IV access: Having some difficulty with peripheral IV access; anticipate that a port will be needed for further treatment in the future. 3. ID: No acute issues. Continue acyclovir prophylaxis. Discussed and recommended treatment with Evusheld, for which I placed orders today. Ms. Renee expressed understanding and agrees. 4. CINV: Prochlorperazine as needed. 5. Right ovarian cyst: Likely physiologic, will reassess on upcoming repeat CT scans. I spent a total of 30 minutes on the date of the service which included preparing to see the patient, [id number] patient care, completing clinical documentation, obtaining and/or reviewing separately obtained history, performing a medically appropriate examination, counseling and educating the patient/family/caregiver and ordering medications, tests, or procedures. 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 INTERIM HISTORY: Nursing notes reviewed; agree with findings as documented. Ms. Renee returns after cycle 4 of treatment. She continues to tolerate treatment well, with minimal nausea relieved by prochlorperazine as needed. Realizes in hindsight how poorly she felt prior to her diagnosis and states that her energy level and appetite continue to improve. IV access is challenging -- needs 2-3 attempts at IV placement each time, but does not want to have a port placed now. MEDICATIONS: Per Rayn. REVIEW OF SYSTEMS: As described above. ECOG PS = 1. PHYSICAL EXAMINATION: VITAL SIGNS: BP 119/74 Pulse 85 Temp 37 C (98.6 F) (Oral) Resp 18 Wt 53.5 kg (118 lb) SpO2 100% BMI 20.45 kg/m GENERAL: well-appearing middle-aged woman in no acute distress. HEAD, EYES, EARS, NOSE, AND THROAT: Normocephalic, atraumatic. Extraocular movements intact, sclerae anicteric. The oropharynx is clear. NECK: Supple, no lymphadenopathy or masses. CHEST: Clear to auscultation. No rales, wheezes, or rhonchi. CARDIAC: Regular rate and rhythm, normal S1 and S2. No murmurs. ABDOMEN: Abdomen soft, non-tender. Bowel sounds normal. No masses, organomegaly. EXTREMITIES: Warm, no edema. LYMPH NODES: No axillary or inguinal lymphadenopathy. MUSCULOSKELETAL: No spinal tenderness to palpation. No obvious deformity. SKIN: No rash or suspicious lesions. DIAGNOSTIC STUDIES: Component Latest Ref Rng & Units 11/30/2021 WBC 3.70 - 11.00 k/uL 3.99 RBC 3.90 - 5.20 m/uL 3.85 (L) Hemoglobin 11.5 - 15.5 g/dL 13.0 Hematocrit 36.0 - 46.0 % 38.1 MCV 80.0 - 100.0 fL 99.0 MCH 26.0 - 34.0 pg 33.8 MCHC 30.5 - 36.0 g/dL 34.1 RDW-CV 11.5 - 15.0 % 12.2 Platelet Count 150 - 400 k/uL 275 MPV 9.0 - 12.7 fL 9.7 Neut% % 62.9 Abs Neut (ANC) 1.45 - 7.50 k/uL 2.51 Lymph% % 10.0 Abs Lymph 1.00 - 4.00 k/uL 0.40 (L) [place]% % 14.8 Abs [place] <0.87 k/uL 0.59 Eosin% % 11.5 Abs Eosin <0.46 k/uL 0.46 (H) Baso% % 0.5 Abs Baso <0.11 k/uL <0.03 Immature Gran % % 0.3 IMMATURE GRANS (ABS) <0.10 k/uL <0.03 NRBC /100 WBC 0.0 Absolute nRBC <0.01 k/uL <0.01 DTYPE Auto Protein, Total 6.3 - 8.0 g/dL 6.8 Albumin 3.9 - 4.9 g/dL 4.1 Calcium 8.5 - 10.2 mg/dL 9.5 Bilirubin, Total 0.2 - 1.3 mg/dL 0.3 Alkaline Phosphatase 34 - 123 U/L 83 AST 13 - 35 U/L 30 ALT 7 - 38 U/L 20 Glucose 74 - 99 mg/dL 90 BUN 7 - 21 mg/dL 10 Creatinine 0.58 - 0.96 mg/dL 0.77 Sodium 136 - 144 mmol/L 142 Potassium 3.7 - 5.1 mmol/L 4.3 Chloride 97 - 105 mmol/L 107 (H) CO2 22 - 30 mmol/L 24 Anion Gap 9 - 18 mmol/L 11 eGFR >=60 mL/min/1.73m 90 IMPRESSION AND PLAN: 1. Follicular lymphoma: doing well with treatment. Proceed with cycle 5 of bendamustine and rituximab today. RTC in 4 weeks for cycle 6. 2. IV access: receiving treatment through peripheral IV's with some difficulty, but does not want a port at this time. 3. ID: No acute issues. Continue acyclovir prophylaxis. 4. CINV: managed effectively with prochlorperazine PRN. 5. Right ovarian cyst noted on current CT scans, not present on scans from 07/2021, likely physiologic; will reassess on post-treatment restaging scans and consider further evaluation if still present then. I spent a total of 25 minutes on the date of the service which included preparing to see the patient, [id number] patient care, completing clinical documentation, obtaining and/or reviewing separately obtained history, performing a medically appropriate examination, counseling and educating the patient/family/caregiver and ordering medications, tests, or procedures. Karo Hill MD cc: Sergio Landaverde MD; ; documented in this encounter [facility] 11-30-2021 Nurse Note Additional intake questions: Has the patient had fever, nausea, vomiting, diarrhea, constipation, fatigue for > 1 week? No Does patient have any new or increased numbness or tingling of extremities? No Is patient interested in fertility information? No Does patient need any prescription refills? No Does patient have an advanced directive in place? 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 INTERIM HISTORY: Nursing notes reviewed; agree with findings as documented. Ms. Renee returns after cycle 3 of treatment. She tolerated the last cycle better, with less nausea (relieved by prochlorperazine, only needed to take once) and no vomiting. No residual subjective lymphadenopathy. Still felt fairly fatigued for several days after her last treatment. MEDICATIONS: Per Rayn. REVIEW OF SYSTEMS: As described above. ECOG PS = 1. PHYSICAL EXAMINATION: VITAL SIGNS: BP 125/82 Pulse 73 Temp 36.6 C (97.9 F) (Oral) Resp 16 Ht 161.8 cm (5' 3.7 ) Wt 54.2 kg (119 lb 6.4 oz) SpO2 100% BMI 20.69 kg/m GENERAL: well-appearing middle-aged woman in no acute distress. HEAD, EYES, EARS, NOSE, AND THROAT: Normocephalic, atraumatic. Extraocular movements intact, sclerae anicteric. The oropharynx is clear. NECK: Supple, no lymphadenopathy or masses. CHEST: Clear to auscultation. No rales, wheezes, or rhonchi. CARDIAC: Regular rate and rhythm, normal S1 and S2. No murmurs. ABDOMEN: Abdomen soft, non-tender. Bowel sounds normal. No masses, organomegaly. EXTREMITIES: Warm, no edema. LYMPH NODES: No axillary or inguinal lymphadenopathy. MUSCULOSKELETAL: No spinal tenderness to palpation. No obvious deformity. SKIN: No rash or suspicious lesions. DIAGNOSTIC STUDIES: Component Latest Ref Rng & Units 11/01/2021 WBC 3.70 - 11.00 k/uL 3.79 RBC 3.90 - 5.20 m/uL 3.92 Hemoglobin 11.5 - 15.5 g/dL 13.3 Hematocrit 36.0 - 46.0 % 39.6 MCV 80.0 - 100.0 fL 101.0 (H) MCH 26.0 - 34.0 pg 33.9 MCHC 30.5 - 36.0 g/dL 33.6 RDW-CV 11.5 - 15.0 % 13.1 Platelet Count 150 - 400 k/uL 298 MPV 9.0 - 12.7 fL 9.5 Neut% % 69.1 Abs Neut (ANC) 1.45 - 7.50 k/uL 2.62 Lymph% % 12.9 Abs Lymph 1.00 - 4.00 k/uL 0.49 (L) [place]% % 13.7 Abs [place] <0.87 k/uL 0.52 Eosin% % 3.2 Abs Eosin <0.46 k/uL 0.12 Baso% % 0.8 Abs Baso <0.11 k/uL 0.03 Immature Gran % % 0.3 IMMATURE GRANS (ABS) <0.10 k/uL <0.03 NRBC /100 WBC 0.0 Absolute nRBC <0.01 k/uL <0.01 DTYPE Auto Protein, Total 6.3 - 8.0 g/dL 6.9 Albumin 3.9 - 4.9 g/dL 4.3 Calcium 8.5 - 10.2 mg/dL 9.1 Bilirubin, Total 0.2 - 1.3 mg/dL 0.2 Alkaline Phosphatase 34 - 123 U/L 84 AST 13 - 35 U/L 29 ALT 7 - 38 U/L 23 Glucose 74 - 99 mg/dL 104 (H) BUN 7 - 21 mg/dL 9 Creatinine 0.58 - 0.96 mg/dL 0.80 Sodium 136 - 144 mmol/L 141 Potassium 3.7 - 5.1 mmol/L 4.1 Chloride 97 - 105 mmol/L 106 (H) CO2 22 - 30 mmol/L 25 Anion Gap 9 - 18 mmol/L 10 eGFR >=60 mL/min/1.73m 86 CT chest, abdomen, and pelvis, 11/01/2021: - Interval resolution of previously seen left supraclavicular and retrocrural lymphadenopathy since PET/CT dated 08/09/2021, suggestive of favorable treatment response. - No new or enlarging suspicious pulmonary nodule. - Retroperitoneal and mesenteric josh masses are smaller since 07/29/2021. - Mild left hydronephrosis, decreased since prior study. IMPRESSION AND PLAN: 1. Follicular lymphoma: excellent interim response after BR x 3 cycles; proceed with C4 today. RTC in 4 weeks for C5. 2. IV access: tolerated treatment through peripheral IV's. 3. ID: No acute issues. Continue acyclovir prophylaxis. 4. CINV: controlled with prochlorperazine PRN. 5. Right ovarian cyst noted on current CT scans, not present on scans from 07/2021, likely physiologic; will reassess on post-treatment restaging scans and consider further evaluation if still present then. I spent a total of 25 minutes on the date of the service which included preparing to see the patient, [id number] patient care, completing clinical documentation, obtaining and/or reviewing separately obtained history, performing a medically appropriate examination, counseling and educating the patient/family/caregiver and ordering medications, tests, or procedures. Karo Hill MD cc: Sergio Landaverde MD; ; documented in this encounter [facility] 11-02-2021 Nurse Note Additional intake questions: Has the patient had fever, nausea, vomiting, diarrhea, constipation, fatigue for > 1 week? Yes, fatigue Does the patient have a decreased appetite? No Does patient want to see a Agricultural Mechanic? No (yes to any of above refer patient to schedulers for dietitian appointment) ) Does patient have any new or increased numbness or tingling of extremities? No Is patient interested in fertility information? NA Does patient need any prescription refills? No Does patient have an advanced directive in place? Yes, no copy found in [facility] will bring documented in this encounter [facility] 11-01-2021 History of Present illness Narrative Radiology Service Progress Note DATE OF SERVICE: November 01, 2021 TIME: 12:57 PM PATIENT IDENTITY VERIFICATION COMPLETED USING TWO (2) STANDARD IDENTIFIERS: Name and Date of confirmed by patient verbally. FALL SCREENING: Has the patient had 2 falls in the last year or 1 fall with injury or currently using an Ambulatory Assistive Device (Walker, Cane, Wheelchair, Crutches, etc.)? No PATIENT GENDER DATA: Female. status: : No status: NO. PATIENT RELEVANT IMPLANT DATA REVIEWED: Yes ALLERGIES: Reviewed and unchanged CONTRAST ALLERGY: NO. EXAM: CT -CONTRAST INDUCED NEPHROPATHY RISK FACTORS: Patient age > 60 years CREATININE: Creatinine Date Value Ref Range Status 11/01/2021 0.80 0.58 - 0.96 mg/dL Final 10/04/2021 0.76 0.58 - 0.96 mg/dL Final 09/07/2021 0.67 0.58 - 0.96 mg/dL Final Estimated Glomerular Filtration Rate Date Value Ref Range Status 11/01/2021 86 >=60 mL/min/1.73m Final Comment: Estimated Glomerular Filtration Rate (eGFR) is calculated using the 2020 CKD-EPI creatinine equation. This equation utilizes serum creatinine, sex, and age as parameters. The creatinine assay has traceable calibration to isotope dilution-mass spectrometry. Refer to KDIGO guidelines for clinical interpretation. In patients with unstable renal function, e.g. those with acute kidney injury, the eGFR may not accurately reflect actual GFR. eGFR- Date Value Ref Range Status 08/11/2021 >60 Final P.O.C.T. RESULTS: POC done: Yes, See Lab Tab November 01, 2021 TREATMENT: N/A PERIPHERAL IV DATA: Ambulatory: A peripheral IV was started in the Left antecubital site with a Angio cath: 22 gauge. RADIOLOGY DEPARTMENT: CT; Exam(s) Completed: Chest Abdomen Pelvis SIGNATURE: RT Ellis(R) PATIENT NAME: Aydin Renee DATE: November 01, 2021 TIME: 12:57 PM documented in this encounter [facility] 10-05-2021 History of Present illness Narrative [facility] CLINICAL NOTE Department of Hematology and Medical Oncology PATIENT NAME: Aydin Renee [facility] NO.: [id number] ATTENDING PHYSICIAN: Karo Hill MD DATE OF SERVICE: 10/05/2021 [facility] FOLLOWUP DIAGNOSIS: Stage III, grade 1-2 follicular lymphoma diagnosed 07/2021, status post rituximab and bendamustine x 2 cycles beginning 07/2021. INTERIM HISTORY: Nursing notes reviewed; agree with findings as documented. Ms. Renee returns after cycle 2 of treatment. She reports sporadic episodes of emesis on D5 and D9 of her last treatment cycle, and occasional slight sensation of nausea usually first thing in the morning, both relieved with prochlorperazine. [place] sensitive and dry mucous membranes involving the mouth and tongue, lasting about 2 1/2 weeks. Her neck lymphadenopathy has resolved, and she is uncertain whether she can feel a residual abdominal mass. MEDICATIONS: Per Rayn. REVIEW OF SYSTEMS: As described above. ECOG PS = 0. PHYSICAL EXAMINATION: VITAL SIGNS: BP 133/71 Pulse 71 Temp 36.6 C (97.9 F) (Oral) Resp 16 Wt 54.4 kg (120 lb) SpO2 100% BMI 20.84 kg/m GENERAL: well-appearing middle-aged woman in no acute distress. HEAD, EYES, EARS, NOSE, AND THROAT: Normocephalic, atraumatic. Extraocular movements intact, sclerae anicteric. The oropharynx is clear. NECK: Supple, with a couple of subcentimeter residual left anterior cervical lymph nodes. CHEST: Clear to auscultation. No rales, wheezes, or rhonchi. CARDIAC: Regular rate and rhythm, normal S1 and S2. No murmurs. ABDOMEN: Abdomen soft, non-tender. Bowel sounds normal. No organomegaly. Possible ~3 cm residual left upper quadrant mass palpable intermittently in the mid-clavicular line just inferior to the costal margin. EXTREMITIES: Warm, no edema. LYMPH NODES: No axillary or inguinal lymphadenopathy. MUSCULOSKELETAL: No spinal tenderness to palpation. No obvious deformity. SKIN: No rash or suspicious lesions. DIAGNOSTIC STUDIES: Component Latest Ref Rng & Units 10/04/2021 WBC 3.70 - 11.00 k/uL 4.12 RBC 3.90 - 5.20 m/uL 4.04 Hemoglobin 11.5 - 15.5 g/dL 13.0 Hematocrit 36.0 - 46.0 % 40.6 MCV 80.0 - 100.0 fL 100.5 (H) MCH 26.0 - 34.0 pg 32.2 MCHC 30.5 - 36.0 g/dL 32.0 RDW-CV 11.5 - 15.0 % 13.2 Platelet Count 150 - 400 k/uL 345 MPV 9.0 - 12.7 fL 10.0 Neut% % 65.5 Abs Neut (ANC) 1.45 - 7.50 k/uL 2.70 Lymph% % 17.5 Abs Lymph 1.00 - 4.00 k/uL 0.72 (L) [place]% % 15.3 Abs [place] <0.87 k/uL 0.63 Eosin% % 1.0 Abs Eosin <0.46 k/uL 0.04 Baso% % 0.5 Abs Baso <0.11 k/uL <0.03 Immature Gran % % 0.2 IMMATURE GRANS (ABS) <0.10 k/uL <0.03 NRBC /100 WBC 0.0 Absolute nRBC <0.01 k/uL <0.01 DTYPE Auto Protein, Total 6.3 - 8.0 g/dL 7.1 Albumin 3.9 - 4.9 g/dL 3.9 Calcium 8.5 - 10.2 mg/dL 9.7 Bilirubin, Total 0.2 - 1.3 mg/dL 0.2 Alkaline Phosphatase 34 - 123 U/L 77 AST 13 - 35 U/L 23 ALT 7 - 38 U/L 18 Glucose 74 - 99 mg/dL 88 BUN 7 - 21 mg/dL 10 Creatinine 0.58 - 0.96 mg/dL 0.76 Sodium 136 - 144 mmol/L 141 Potassium 3.7 - 5.1 mmol/L 4.2 Chloride 97 - 105 mmol/L 106 (H) CO2 22 - 30 mmol/L 26 Anion Gap 9 - 18 mmol/L 9 eGFR >=60 mL/min/1.73m 91 IMPRESSION AND PLAN: 1. Follicular lymphoma: Good clinical response to treatment so far, tolerating treatment well. Proceed with cycle 3 of BR today. RTC in 4 weeks for cycle 4. We discussed the pros and cons of obtaining interim restaging CT scans, which are currently scheduled; Ms. Renee is debating whether to decline having them, and she will let us know if she wishes to complete her treatment course without them. 2. IV access: tolerating treatment via peripheral IV's. 3. ID: No acute issues. Continue acyclovir prophylaxis. 4. CINV: prochlorperazine PRN. I spent a total of 30 minutes on the date of the service which included preparing to see the patient, [id number] patient care, completing clinical documentation, obtaining and/or reviewing separately obtained history, performing a medically appropriate examination, counseling and educating the patient/family/caregiver and ordering medications, tests, or procedures. Karo Hill MD cc: Sergio Landaverde MD; ; documented in this encounter [facility] 10-05-2021 Nurse Note Additional intake questions: Has the patient had fever, nausea, vomiting, diarrhea, constipation, fatigue for > 1 week? No Does the patient have a decreased appetite? No Does patient want to see a Agricultural Mechanic? No (yes to any of above refer patient to schedulers for dietitian appointment) ) Does patient have any new or increased numbness or tingling of extremities? No Is patient interested in fertility information? No Does patient need any prescription refills? No Does patient have an advanced directive in place? 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 INTERIM HISTORY: Nursing notes reviewed; agree with findings as documented. Ms. Renee returns after cycle 1 of treatment. She felt transient nausea after treatment for about half a day, then a couple of morning episodes, relieved with antiemetics. Also notices ongoing fatigue, a bit more pronounced compared with before her treatment, but she continues to tolerate normal activity. Her neck lymph nodes have regressed and she does not feel her abdominal mass any longer. MEDICATIONS: Per Rayn. REVIEW OF SYSTEMS: As described above. ECOG PS = 1. PHYSICAL EXAMINATION: VITAL SIGNS: BP 134/80 Pulse 68 Temp 37.1 C (98.8 F) (Temporal) Resp 16 Wt 53.9 kg (118 lb 12.8 oz) SpO2 100% BMI 20.64 kg/m GENERAL: well-appearing middle-aged woman in no acute distress. HEAD, EYES, EARS, NOSE, AND THROAT: Normocephalic, atraumatic. Extraocular movements intact, sclerae anicteric. The oropharynx is clear. NECK: Supple, no lymphadenopathy or masses. CHEST: Clear to auscultation. No rales, wheezes, or rhonchi. CARDIAC: Regular rate and rhythm, normal S1 and S2. No murmurs. ABDOMEN: Abdomen soft, non-tender. Bowel sounds normal. No organomegaly. There is a persistent, mobile periumbilical mass, about 6 x 4 cm, softer than before. EXTREMITIES: Warm, no edema. LYMPH NODES: No axillary or inguinal lymphadenopathy. MUSCULOSKELETAL: No spinal tenderness to palpation. No obvious deformity. SKIN: No rash or suspicious lesions. DIAGNOSTIC STUDIES: Component Latest Ref Rng & Units 09/07/2021 WBC 3.70 - 11.00 k/uL 5.99 RBC 3.90 - 5.20 m/uL 4.31 Hemoglobin 11.5 - 15.5 g/dL 13.7 Hematocrit 36.0 - 46.0 % 42.4 MCV 80.0 - 100.0 fL 98.4 MCH 26.0 - 34.0 pg 31.8 MCHC 30.5 - 36.0 g/dL 32.3 RDW-CV 11.5 - 15.0 % 12.5 Platelet Count 150 - 400 k/uL 311 MPV 9.0 - 12.7 fL 9.7 Neut% % 69.5 Abs Neut (ANC) 1.45 - 7.50 k/uL 4.16 Lymph% % 15.5 Abs Lymph 1.00 - 4.00 k/uL 0.93 (L) Mariposa% % 12.9 Abs Mariposa <0.87 k/uL 0.77 Eosin% % 1.0 Abs Eosin <0.46 k/uL 0.06 Baso% % 0.8 Abs Baso <0.11 k/uL 0.05 Immature Gran % % 0.3 IMMATURE GRANS (ABS) <0.10 k/uL <0.03 NRBC /100 WBC 0.0 Absolute nRBC <0.01 k/uL <0.01 DTYPE Auto Protein, Total 6.3 - 8.0 g/dL 7.3 Albumin 3.9 - 4.9 g/dL 4.3 Calcium 8.5 - 10.2 mg/dL 9.7 Bilirubin, Total 0.2 - 1.3 mg/dL 0.2 Alkaline Phosphatase 34 - 123 U/L 78 AST 13 - 35 U/L 27 ALT 7 - 38 U/L 18 Glucose 74 - 99 mg/dL 75 BUN 7 - 21 mg/dL 11 Creatinine 0.58 - 0.96 mg/dL 0.67 Sodium 136 - 144 mmol/L 142 Potassium 3.7 - 5.1 mmol/L 4.5 Chloride 97 - 105 mmol/L 107 (H) CO2 22 - 30 mmol/L 22 Anion Gap 9 - 18 mmol/L 13 eGFR >=60 mL/min/1.73m 101 IMPRESSION AND PLAN: 1. Follicular lymphoma: Good clinical response to BR. Proceed with cycle 2 today. RTC in 4 weeks for cycle 3. 2. IV access: Tolerating treatment via peripheral IV's. 3. ID: No acute issues. Continue acyclovir prophylaxis. 4. CINV: controlled with prochlorperazine PRN. I spent a total of 25 minutes on the date of the service which included preparing to see the patient, [id number] patient care, completing clinical documentation, obtaining and/or reviewing separately obtained history, performing a medically appropriate examination, counseling and educating the patient/family/caregiver and ordering medications, tests, or procedures. Karo Hill MD cc: Sergio Landaverde MD; ; documented in this encounter [facility] 09-07-2021 Nurse Note Additional intake questions: Has the patient had fever, nausea, vomiting, diarrhea, constipation, fatigue for > 1 week? Yes, fatigue and Provider Notified Does the patient have a decreased appetite? No Does patient want to see a Agricultural Mechanic? No (yes to any of above refer patient to schedulers for dietitian appointment) ) Does patient have any new or increased numbness or tingling of extremities? No Is patient interested in fertility information? No Does patient need any prescription refills? No Does patient have an advanced directive in place? Yes, no copy found in [facility] Patient referred to [facility] documented in this encounter [facility] 08-09-2021 Note HNO ID: [id number] Author: Gisel Macias RT(R) Service: Nuclear Medicine Author Type: Technologist Type: Progress Notes Filed: 08/09/2021 9:53 AM Note Text: RADIOLOGY SERVICE PROGRESS NOTE SERVICE DATE: 08/09/2021 SERVICE TIME: 9:52 AM PATIENT IDENTITY VERIFICATION COMPLETED USING TWO (2) STANDARD IDENTIFIERS: Name and Date of confirmed by patient verbally FALL SCREENING: Has the patient had 2 falls in the last year or 1 fall with injury or currently using an Ambulatory Assistive Device (Walker, Cane, Wheelchair, Crutches, etc.)? No PATIENT GENDER DATA: .female ALLERGIES: Reviewed and unchanged MEDICATIONS REVIEWED: No PATIENT RELEVANT IMPLANT DATA REVIEWED: Not Applicable CREATININE: Creatinine Date Value Ref Range Status 07/18/2021 0.85 0.58 - 0.96 mg/dL Final eGFR-All Other Races Date Value Ref Range Status 07/18/2021 >60 . Final Comment: eGFR (Estimated GFR) Units of measure: mL/min/1.73 meters squared eGFR is derived from the reexpressed MDRD Study equation using the following parameters: serum creatinine, age, gender and race. The creatinine assay has been calibrated to be traceable to IDMS. An eGFR <60 mL/min/1.73m2 for >3 months is consistent with chronic kidney disease. Refer to KDOQI guidelines for clinical interpretation. In patients with unstable renal function, e.g. those with acute kidney injury, the eGFR may not accurately reflect actual GFR. Note: On 08/13/2021, the eGFR calculation will be updated to the NKF-ASN Task Force recommended 2020 CKD-EPI creatinine equation which does not include a race variable. For more information or to access a 2020 CKD-EPI calculator, visit the [employer] website at kidney.[email or web address]/professionals/kdoqi/gf r_[email or web address]. eGFR- Date Value Ref Range Status 07/18/2021 >60 Final P.O.C.T. RESULTS: N/A August 09, [address] PERFORMED: No IV SITE: Ambulatory: NM only - direct IV injection in the Right antecubital site POST EXAM PIV STATUS: Not applicable PROCEDURE TYPE: NM INJECT: PET/CT BODY SCAN. 7.3 mCi F18 FDG. No other medications given.. ADMINISTRATION TIME: 0946 PATIENT DISCHARGED TO: Ambulatory patient, left NM department area. A Diagnostic radioactive procedure has taken place, with no further precautions necessary other than routine body substance precautions. 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 Encounter for antineoplastic immunotherapy [facility]* Diagnosis 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 Encounter for antineoplastic chemotherapy [facility]* Diagnosis 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 [facility]* Diagnosis 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 Encounter for antineoplastic chemotherapy [facility]* Diagnosis 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 [facility] Diagnosis 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) [facility] Diagnosis 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 [facility]* Diagnosis 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 Encounter for antineoplastic chemotherapy [facility]* Diagnosis 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 Encounter for antineoplastic chemotherapy [facility] Diagnosis 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) [facility]* Diagnosis 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 [facility] Diagnosis 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) [facility] Diagnosis Encounter for prophylactic measures, unspecified- Primary [facility] Diagnosis 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 Encounter for prophylactic measures, unspecified [facility] Diagnosis 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 Encounter for antineoplastic chemotherapy Encounter for antineoplastic immunotherapy [facility] Diagnosis 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 Encounter for prophylactic measures, unspecified Encounter for antineoplastic chemotherapy [facility] Diagnosis 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) [facility] Diagnosis 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 Encounter for prophylactic measures, unspecified [facility]* Diagnosis 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 [facility]* Diagnosis Vulvar burning- Primary Unspecified symptom associated with female genital organs Vulvar atrophy Atrophy of vulva Vaginal atrophy Postmenopausal atrophic vaginitis Superficial dyspareunia Cyst of ovary, unspecified laterality Abnormal mammogram Abnormal mammogram, unspecified Encounter for screening mammogram for malignant neoplasm of breast Other screening mammogram [facility]* Diagnosis Encounter for screening mammogram for malignant neoplasm of breast Other screening mammogram [facility]* Diagnosis Encounter for gynecological examination (general) (routine) without abnormal findings- Primary Encounter for screening mammogram for breast cancer Vulvar atrophy Atrophy of vulva Vaginal atrophy Postmenopausal atrophic vaginitis Dyspareunia in female documented [facility]* Diagnosis Vulvar atrophy Atrophy of vulva Vaginal atrophy Postmenopausal atrophic vaginitis Dyspareunia in female [facility]* Diagnosis Vulvar atrophy- Primary Atrophy of vulva Vaginal atrophy Postmenopausal atrophic vaginitis Superficial dyspareunia [facility]* Diagnosis 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 [facility] Diagnosis 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) documented in this encounter [facility] for referral (narrative)* Diagnostic Procedure Only (Routine) - Pending Review Specialty Diagnoses / Procedures Referred By Chencho goodwin Referred To Contact [facility] Diagnoses Abnormal mammogram Encounter for screening mammogram for malignant neoplasm of breast Procedures BENJAMIN DIAGNOSTIC BILAT DIAGNOSTIC MAMMOGRAPHY COMPUTER-AIDED DETCJ BI My Borges MD [address] [place] [address] [facility] [address] [place] [address] Referral ID Status Reason Start Date Expiration Date Visits Requested Visits Authorized [id number] Pending Review Auto-Generat ed Referral 02/13/2022 03/15/2023 1 1 * Consult, Test, Treat (Routine) - Authorized Specialty Diagnoses / Procedures Referred By Chencho goodwin Referred To Contact Diagnoses Vulvar burning Procedures CONSULT TO COMPUTER FORWARDING SYSTEM MARKUP CLERK INFECTIOUS DISEASE OFFICE/[facility] 60-74 MINUTES My Borges MD [address] [place] [address] Indira Aranda MD [address] [address] Referral ID Status Reason Start Date Expiration Date Visits Requested Visits Authorized [id number] Authorized PCP Requested Referral Auto-Generate d Referral 02/13/2022 02/13/2023 1 1 * Diagnostic Procedure Only (Routine) - Authorized Specialty Diagnoses / Procedures Referred By Chencho goodwin Referred To Contact [facility] Diagnoses Cyst of ovary, unspecified laterality Procedures [facility] US [facility] US PELVIC NONOBSTETRIC REAL-TIME IMAGE COMPLETE My Borges MD [address] [place] [address] [facility] [address] [place] [address] Referral ID Status Reason Start Date Expiration Date Visits Requested Visits Authorized [id number] Authorized Auto-Generat ed Referral 02/13/2022 02/13/2023 1 1 [facility] for referral (narrative)* Diagnostic Procedure Only (Routine) - Closed Specialty Diagnoses / Procedures Referred By Chencho goodwin Referred To Contact [facility] Diagnoses Encounter for screening mammogram for malignant neoplasm of breast Procedures BENJAMIN SCREENING SCREENING MAMMOGRAPHY BI 2-VIEW BREAST INC My Frankel MD [address] [place] [address] [facility] [address] [place] [address] Referral ID Status Reason Start Date Expiration Date V isits Requested Visits Authorized [id number] Closed Auto-Generate d Referral 02/15/2022 03/16/2023 1 1 [facility] for referral (narrative)* Diagnostic Procedure Only (Routine) - Pending Review Specialty Diagnoses / Procedures Referred By Chencho goodwin Referred To Contact [facility] Diagnoses Encounter for screening mammogram for breast cancer Procedures BENJAMIN SCREENING SCREENING MAMMOGRAPHY BI 2-VIEW BREAST INC My Frankel MD [address] [place] [address] [facility] [address] [place] [address] Referral ID Status Reason Start Date Expiration Date Visits Requested Visits Authorized [id number] Pending Review Auto-Generat ed Referral 03/17/2022 04/16/2023 1 1 [facility] for visit Narrative* Diagnostic Procedure Only (Routine) - Closed Specialty Diagnoses / Procedures Referred By Chencho goodwin Referred To Contact [facility] Diagnoses Encounter for screening mammogram for malignant neoplasm of breast Procedures BENJAMIN SCREENING SCREENING MAMMOGRAPHY BI 2-VIEW BREAST INC My Frankel MD [address] [place] [address] [facility] [address] [place] [address] Referral ID Status Reason Start Date Expiration Date V isits Requested Visits Authorized [id number] Closed Auto-Generate d Referral 02/15/2022 03/16/2023 1 1 [facility] Summary Purpose Family History No Family History Records FoundNo Family History Records FoundNo Family History Records FoundNo Family History Records Found Advance Directives No Advanced Directives Records FoundNo Advanced Directives Records FoundNo Advanced Directives Records FoundNo Advanced Directives Records Found Medications Administered Section Inactive Administered Medications - up to 3 most recent administrations Medication Order MAR Action Action Date Dose Rate Site acetaminophen 650 mg tab(s) (TYLENOL) 650 mg, ORAL, ONCE, 1 dose, On Sun09/07/21 at 1100, Give 30 minutes prior to infusion. No more than 4000 mg of acetaminophen should be given per day (FROM ALL SOURCES), If ordered PRN for pain, patient/guardian may elect to receive this medication for higher pain levels if preferred: N/A Given 09/07/2021 10:50 AM EDT 650 mg bendamustine 144 mg in NaCl 0.9% 500 mL (BELRAPZO) 144 mg (90 mg/m2 1.6 m2 Treatment Plan BSA from Recorded weight), INTRAVENOUS, Administer over 30 Minutes, ONCE, 1 dose, On Sun09/07/21 at 1100, Approx Total Volume: exp Hazardous Chemotherapy Drug: Use appropriate PPE. Antineoplastic Irritant. Refrigerate. Product dispensed: BELRAPZO New Bag/Syringe/Bottle 09/07/2021 3:16 PM EDT 144 mg dexAMETHasone 10 mg/NS 50 mL (PYXIS) 10 mg ivpb 10 mg, INTRAVENOUS, ONCE, 1 dose, On Sun09/07/21 at 1100, Refrigerate. New Bag/Syringe/Bottle 09/07/2021 10:50 AM EDT 10 mg diphenhydrAMINE 50 mg (BENADRYL) 50 mg, ORAL, ONCE, 1 dose, On Sun09/07/21 at 1100, Give 30 minutes prior to infusion. Given 09/07/2021 10:50 AM EDT 50 mg palonosetron 0.25 mg injection (ALOXI) 0.25 mg, INTRAVENOUS, ONCE, 1 dose, On Sun09/07/21 at 1100, Flush IV line with NS prior to and following administration. Given 09/07/2021 10:50 AM EDT 0.25 mg riTUXimab 600 mg in NaCl 0.9% 500 mL (RITUXAN) 600 mg (375 mg/m2 1.6 m2 Treatment Plan BSA from Recorded weight), INTRAVENOUS, ONCE, 1 dose, On Sun09/07/21 at 1100, Approx Total Volume: EXP: Initiate infusion at a rate of 50 mg/hr. In the absence of infusion toxicity, increase infusion rate by 50 mg/hr increments every 30 minutes, to a maximum of 400 mg/hr, Medication Substitution: [facility] preferred product has been replaced with the insurance mandated product Rate/Dose Change 09/07/2021 2:16 PM EDT Inactive Administered Medications - up to 3 most recent administrations Medication Order MAR Action Action Date Dose Rate Site bendamustine 144 mg in NaCl 0.9% 500 mL (BELRAPZO) 144 mg (90 mg/m2 1.6 m2 Treatment Plan BSA from Recorded weight), INTRAVENOUS, Administer over 30 Minutes, ONCE, 1 dose, On Sun09/08/21 at 1430, Approx Total Volume EXP Hazardous Chemotherapy Drug: Use appropriate PPE. Antineoplastic Irritant. Refrigerate. Product dispensed: BELRAPZO New Bag/Syringe/Bottle 09/08/2021 3:49 PM EDT 144 mg dexAMETHasone 10 mg/NS 50 mL (PYXIS) 10 mg ivpb 10 mg, INTRAVENOUS, ONCE, 1 dose, On Sun09/08/21 at 1430, Refrigerate. New Bag/Syringe/Bottle 09/08/2021 3:22 PM EDT 10 mg Inactive Administered Medications - up to 3 most recent administrations Medication Order MAR Action Action Date Dose Rate Site acetaminophen 650 mg tab(s) (TYLENOL) 650 mg, ORAL, ONCE, 1 dose, On Sun10/05/21 at 0930, Give 30 minutes prior to infusion. No more than 4000 mg of acetaminophen should be given per day (FROM ALL SOURCES), If ordered PRN for pain, patient/guardian may elect to receive this medication for higher pain levels INSTEAD of the opioid, if preferred: N/A Given 10/05/2021 9:37 AM EDT 650 mg bendamustine 144 mg in NaCl 0.9% 500 mL (BELRAPZO) 144 mg (90 mg/m2 1.6 m2 Treatment Plan BSA from Recorded weight), INTRAVENOUS, Administer over 30 Minutes, ONCE, 1 dose, On Sun10/05/21 at 0930, Approx Total Volume Exp: Hazardous Chemotherapy Drug: Use appropriate PPE. Antineoplastic Irritant. Refrigerate. Product dispensed: BELRAPZO New Bag/Syringe/Bottl e 10/05/2021 10:40 AM EDT 144 mg dexAMETHasone 10 mg/NS 50 mL (PYXIS) 10 mg ivpb (DECADRON) 10 mg, INTRAVENOUS, Administer over 15 Minutes, ONCE, 1 dose, On Sun10/05/21 at 0930, Refrigerate. New Bag/Syringe/Bottl e 10/05/2021 9:39 AM EDT 10 mg diphenhydrAMINE 50 mg (BENADRYL) 50 mg, ORAL, ONCE, 1 dose, On Sun10/05/21 at 0930, Give 30 minutes prior to infusion. Given 10/05/2021 9:37 AM EDT 50 mg palonosetron 0.25 mg injection (ALOXI) 0.25 mg, INTRAVENOUS, ONCE, 1 dose, On Sun10/05/21 at 0930, Flush IV line with NS prior to and following administration. Given 10/05/2021 9:38 AM EDT 0.25 mg riTUXimab - hyaluronidase 1,400 mg injection (RITUXAN HYCELA) 1,400 mg, SUBCUTANEOUS, Administer over 5 Minutes, ONCE, 1 dose, On Sun10/05/21 at 0930, Approx Total Volume: 11.7 mL EXP: Inject subcutaneously in abdomen over 5 minutes. Observe for at least 15 minutes after administration. Given 10/05/2021 10:32 AM EDT 1,400 mg Abdomen, RLQ Inactive Administered Medications - up to 3 most recent administrations Medication Order MAR Action Action Date Dose Rate Site bendamustine 144 mg in NaCl 0.9% 500 mL (BELRAPZO) 144 mg (90 mg/m2 1.6 m2 Treatment Plan BSA from Recorded weight), INTRAVENOUS, Administer over 30 Minutes, ONCE, 1 dose, On Sun10/06/21 at 1230, Approx Total Volume Exp: Hazardous Chemotherapy Drug: Use appropriate PPE. Antineoplastic Irritant. Refrigerate. Product dispensed: BELRAPZO New Bag/Syringe/Bottle 10/06/2021 1:23 PM EDT 144 mg dexAMETHasone 10 mg/NS 50 mL (PYXIS) 10 mg ivpb (DECADRON) 10 mg, INTRAVENOUS, Administer over 15 Minutes, ONCE, 1 dose, On Zoe 10/06/21 at 1230, Refrigerate. New Bag/Syringe/Bottle 10/06/2021 12:56 PM EDT 10 mg Inactive Administered Medications - up to 3 most recent administrations Medication Order MAR Action Action Date Dose Rate Site acetaminophen 650 mg tab(s) (TYLENOL) 650 mg, ORAL, ONCE, 1 dose, On Sun11/02/21 at 0930, Give 30 minutes prior to infusion. No more than 4000 mg of acetaminophen should be given per day (FROM ALL SOURCES), If ordered PRN for pain, patient/guardian may elect to receive this medication for higher pain levels INSTEAD of the opioid, if preferred: N/A Given 11/02/2021 9:44 AM EDT 650 mg bendamustine 144 mg in NaCl 0.9% 545.76 mL (BELRAPZO) 144 mg (90 mg/m2 1.6 m2 Treatment Plan BSA from Recorded weight), INTRAVENOUS, Administer over 30 Minutes, ONCE, 1 dose, On Sun11/02/21 at 0930, EXP Hazardous Chemotherapy Drug: Use appropriate PPE. Antineoplastic Irritant. Refrigerate. Product dispensed: BELRAPZO New Bag/Syringe/Bottl e 11/02/2021 10:30 AM EDT 144 mg dexAMETHasone 10 mg/NS 50 mL (PYXIS) 10 mg ivpb (DECADRON) 10 mg, INTRAVENOUS, ONCE, 1 dose, On Sun11/02/21 at 0930, Refrigerate. New Bag/Syringe/Bottl e 11/02/2021 9:45 AM EDT 10 mg diphenhydrAMINE 50 mg (BENADRYL) 50 mg, ORAL, ONCE, 1 dose, On Sun11/02/21 at 0930, Give 30 minutes prior to infusion. Given 11/02/2021 9:44 AM EDT 50 mg palonosetron 0.25 mg injection (ALOXI) 0.25 mg, INTRAVENOUS, ONCE, 1 dose, On Sun11/02/21 at 0930, Flush IV line with NS prior to and following administration. Given 11/02/2021 9:44 AM EDT 0.25 mg riTUXimab - hyaluronidase 1,400 mg injection (RITUXAN HYCELA) 1,400 mg, SUBCUTANEOUS, Administer over 5 Minutes, ONCE, 1 dose, On Sun11/02/21 at 0930, Approx Total Volume: 11.7 mL EXP: Inject subcutaneously in abdomen over 5 minutes. Observe for at least 15 minutes after administration. Given 11/02/2021 10:18 AM EDT 1,400 mg Abdomen, LLQ Inactive Administered Medications - up to 3 most recent administrations Medication Order MAR Action Action Date Dose Rate Site bendamustine 144 mg in NaCl 0.9% 545.76 mL (BELRAPZO) 144 mg (90 mg/m2 1.6 m2 Treatment Plan BSA from Recorded weight), INTRAVENOUS, Administer over 30 Minutes, ONCE, 1 dose, On Sun11/03/21 at 0930, Hazardous Chemotherapy Drug: Use appropriate PPE. Antineoplastic Irritant. Refrigerate. Product dispensed: BELRAPZO New Bag/Syringe/Bottle 11/03/2021 10:34 AM EDT 144 mg dexAMETHasone 10 mg/NS 50 mL (PYXIS) 10 mg ivpb (DECADRON) 10 mg, INTRAVENOUS, ONCE, 1 dose, On Sun11/03/21 at 0930, Refrigerate. New Bag/Syringe/Bottle 11/03/2021 9:59 AM EDT 10 mg Inactive Administered Medications - up to 3 most recent administrations Medication Order MAR Action Action Date Dose Rate Site bendamustine 144 mg in NaCl 0.9% 545.76 mL (BELRAPZO) 144 mg (90 mg/m2 1.6 m2 Treatment Plan BSA from Recorded weight), INTRAVENOUS, Administer over 30 Minutes, ONCE, 1 dose, On Sun12/01/21 at 0830, Approx Total Volume: Hazardous Chemotherapy Drug: Use appropriate PPE. Antineoplastic Irritant. Refrigerate. Product dispensed: BELRAPZO New Bag/Syringe/Bottle 12/01/2021 10:03 AM EDT 144 mg dexAMETHasone 10 mg/NS 50 mL (PYXIS) 10 mg ivpb (DECADRON) 10 mg, INTRAVENOUS, ONCE, 1 dose, On Sun12/01/21 at 0830, Refrigerate. New Bag/Syringe/Bottle 12/01/2021 9:35 AM EDT 10 mg Inactive Administered Medications - up to 3 most recent administrations Medication Order MAR Action Action Date Dose Rate Site acetaminophen 650 mg tab(s) (TYLENOL) 650 mg, ORAL, ONCE, 1 dose, On Sun12/28/21 at 1200, Give 30 minutes prior to infusion. No more than 4000 mg of acetaminophen should be given per day (FROM ALL SOURCES), If ordered PRN for pain, patient/guardian may elect to receive this medication for higher pain levels INSTEAD of the opioid, if preferred: N/A Given 12/28/2021 12:27 PM EDT 650 mg bendamustine 144 mg in NaCl 0.9% 545.76 mL (BELRAPZO) 144 mg (90 mg/m2 1.6 m2 Treatment Plan BSA from Recorded weight), INTRAVENOUS, Administer over 30 Minutes, ONCE, 1 dose, On Sun12/28/21 at 1200, EXP: Hazardous Chemotherapy Drug: Use appropriate PPE. Antineoplastic Irritant. Refrigerate. Product dispensed: BELRAPZO New Bag/Syringe/Bottl e 12/28/2021 1:10 PM EDT 144 mg dexAMETHasone 10 mg/NS 50 mL (PYXIS) 10 mg ivpb (DECADRON) 10 mg, INTRAVENOUS, ONCE, 1 dose, On Sun12/28/21 at 1200, Refrigerate. New Bag/Syringe/Bottl e 12/28/2021 12:28 PM EDT 10 mg diphenhydrAMINE 50 mg (BENADRYL) 50 mg, ORAL, ONCE, 1 dose, On Sun12/28/21 at 1200, Give 30 minutes prior to infusion. Given 12/28/2021 12:27 PM EDT 50 mg palonosetron 0.25 mg injection (ALOXI) 0.25 mg, INTRAVENOUS, ONCE, 1 dose, On Sun12/28/21 at 1200, Flush IV line with NS prior to and following administration. Given 12/28/2021 12:31 PM EDT 0.25 mg riTUXimab - hyaluronidase 1,400 mg injection (RITUXAN HYCELA) 1,400 mg, SUBCUTANEOUS, Administer over 5 Minutes, ONCE, 1 dose, On Sun12/28/21 at 1200, Approx Total Volume: 11.7 mL EXP: Inject subcutaneously in abdomen over 5 minutes. Observe for at least 15 minutes after administration. Given 12/28/2021 1:01 PM EDT 1,400 mg Abdomen, RUQ Inactive Administered Medications - up to 3 most recent administrations Medication Order MAR Action Action Date Dose Rate Site bendamustine 144 mg in NaCl 0.9% 545.76 mL (BELRAPZO) 144 mg (90 mg/m2 1.6 m2 Treatment Plan BSA from Recorded weight), INTRAVENOUS, Administer over 30 Minutes, ONCE, 1 dose, On Zoe 12/29/21 at 1000, Hazardous Chemotherapy Drug: Use appropriate PPE. Antineoplastic Irritant. Refrigerate. Product dispensed: BELRAPZO New Bag/Syringe/Bottle 12/29/2021 10:55 AM EDT 144 mg dexAMETHasone 10 mg/NS 50 mL (PYXIS) 10 mg ivpb (DECADRON) 10 mg, INTRAVENOUS, ONCE, 1 dose, On Zoe 12/29/21 at 1000, Refrigerate. 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) Procedures CT CHEST W IVCON DIAGNOSTIC COMPUTED TOMOGRAPHY THORAX W/CONTRAST Karo Hill MD [address] [place], [place] [id number] Ct Imaging Referral ID Status Reason Start Date Expiration Date V isits Requested Visits Authorized [id number] Closed Auto-Generate d Referral 10/06/2021 11/04/2021 2 2 Specialty Diagnoses / Procedures Referred By Contac t Referred To Contact CT IMAGING Diagnoses 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) Procedures CT ABD/PEL W IVCON CT ABD & PELVIS W/CONTRAST Karo Hill MD [address] [place] [address] [id number] [address] Imaging Referral ID Status Reason Start Date Expiration Date V isits Requested Visits Authorized [id number] Closed Auto-Generate d Referral 10/06/2021 11/04/2021 1 1 Referral ID Status Reason Start Date Expiration Date Visits Requested Visits Authorized [id number] Pending Review Auto-Generat ed Referral 01/30/2022 12/30/2022 1 1 Referral ID Status Reason Start Date Expiration Date Visits Requested Visits Authorized [id number] Pending Review Auto-Generat ed Referral 01/30/2022 12/30/2022 1 1 Specialty Diagnoses / Procedures Referred By Contac t Referred To Contact CT IMAGING Diagnoses 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) Procedures CT NECK SOFT TISSUE W IVCON CT SOFT TISSUE NECK W/CONTRAST MATERIAL Karo Hill MD [address] [place] [address] Ct Imaging Referral ID Status Reason Start Date Expiration Date Visits Requested Visits Authorized [id number] Pending Review Auto-Generat ed Referral 01/30/2022 12/30/2022 1 1 Referral ID Status Reason Start Date Expiration Date V isits Requested Visits Authorized [id number] Closed Auto-Generate d Referral 01/19/2022 02/17/2022 1 1 Referral ID Status Reason Start Date Expiration Date V isits Requested Visits Authorized [id number] Closed Auto-Generate d Referral 01/19/2022 02/17/2022 1 1 Referral ID Status Reason Start Date Expiration Date V isits Requested Visits Authorized [id number] Closed Auto-Generate d Referral 01/19/2022 02/17/2022 1 1 Specialty Diagnoses / Procedures Referred By Contac t Referred To Contact Diagnoses Encounter for prophylactic measures, unspecified Procedures COVID TREATMENT REFERRAL COVID TREATMENT REFERRAL Karo Hill MD [address] [place], [place] [id number] Referral ID Status Reason Start Date Expiration Date Visits Requested Visits Authorized [id number] Pending Review Auto-Generat ed Referral 02/10/2022 02/10/2023 1 1 Specialty Diagnoses / Procedures Referred By Contac t Referred To Contact CT IMAGING Diagnoses 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) Procedures CT CHEST W IVCON DIAGNOSTIC COMPUTED TOMOGRAPHY THORAX W/CONTRAST Karo Hill MD [address] [place] [address] [address] [address] [place] [address] Referral ID Status Reason Start Date Expiration Date V isits Requested Visits Authorized [id number] Closed Auto-Generate d Referral 08/24/2022 06/25/2023 2 2 Specialty Diagnoses / Procedures Referred By Chencho goodwin Referred To Contact CT IMAGING Diagnoses 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) Procedures CT ABD/PEL W IVCON CT ABD & PELVIS W/CONTRAST Ahsan, [place] [address] [place] [address] Ct Imaging [id number] Referral ID Status Reason Start Date Expiration Date V isits Requested Visits Authorized [id number] Closed Auto-Generate d Referral 08/24/2022 06/25/2023 1 1 Additional Source Comments INFORMATION SOURCE (unrecogn ized section and content) DATE CREATED AUTHOR AUTHOR'S ORGANIZ ATION 11/21/2020 [facility] DATE CREATED AUTHOR AUTHOR'S ORGANIZ ATION 08/09/2021 [facility] DATE CREATED AUTHOR AUTHOR'S ORGANIZ ATION 07/05/2023 [facility] Source Comments (unrecognize d section and content) In the event this informatio n is protected by the Federal Confidentiality of Alcohol and Drug Abuse Patient Records regulations: The Federal rules restrict any use of the information to criminally investigate or prosecute any alcohol or drug abuse patient.[facility] the event this information is protected by the Federal Confidentiality of Alcohol and Drug Abuse Patient Records regulations: The Federal rules restrict any use of the information to criminally investigate or prosecute any alcohol or drug abuse patient.[facility] CenterIn the event this information is protected by the Federal Confidentiality of Alcohol and Drug Abuse Patient Records regulations: The Federal rules restrict any use of the information to criminally investigate or prosecute any alcohol or drug abuse patient.[facility] CenterIn the event this information is protected by the Federal Confidentiality of Alcohol and Drug Abuse Patient Records regulations: The Federal rules restrict any use of the information to criminally investigate or prosecute any alcohol or drug abuse patient.[facility] CenterIn the event this information is protected by the Federal Confidentiality of Alcohol and Drug Abuse Patient Records regulations: The Federal rules restrict any use of the information to criminally investigate or prosecute any alcohol or drug abuse patient.[facility] CenterIn the event this information is protected by the Federal Confidentiality of Alcohol and Drug Abuse Patient Records regulations: The Federal rules restrict any use of the information to criminally investigate or prosecute any alcohol or drug abuse patient.[facility] CenterIn the event this information is protected by the Federal Confidentiality of Alcohol and Drug Abuse Patient Records regulations: The Federal rules restrict any use of the information to criminally investigate or prosecute any alcohol or drug abuse patient.[facility] CenterIn the event this information is protected by the Federal Confidentiality of Alcohol and Drug Abuse Patient Records regulations: The Federal rules restrict any use of the information to criminally investigate or prosecute any alcohol or drug abuse patient.[facility] CenterIn the event this information is protected by the Federal Confidentiality of Alcohol and Drug Abuse Patient Records regulations: The Federal rules restrict any use of the information to criminally investigate or prosecute any alcohol or drug abuse patient.[facility] CenterIn the event this information is protected by the Federal Confidentiality of Alcohol and Drug Abuse Patient Records regulations: The Federal rules restrict any use of the information to criminally investigate or prosecute any alcohol or drug abuse patient.[facility] CenterIn the event this information is protected by the Federal Confidentiality of Alcohol and Drug Abuse Patient Records regulations: The Federal rules restrict any use of the information to criminally investigate or prosecute any alcohol or drug abuse patient.[facility] CenterIn the event this information is protected by the Federal Confidentiality of Alcohol and Drug Abuse Patient Records regulations: The Federal rules restrict any use of the information to criminally investigate or prosecute any alcohol or drug abuse patient.[facility] CenterIn the event this information is protected by the Federal Confidentiality of Alcohol and Drug Abuse Patient Records regulations: The Federal rules restrict any use of the information to criminally investigate or prosecute any alcohol or drug abuse patient.[facility] CenterIn the event this information is protected by the Federal Confidentiality of Alcohol and Drug Abuse Patient Records regulations: The Federal rules restrict any use of the information to criminally investigate or prosecute any alcohol or drug abuse patient.[facility] CenterIn the event this information is protected by the Federal Confidentiality of Alcohol and Drug Abuse Patient Records regulations: The Federal rules restrict any use of the information to criminally investigate or prosecute any alcohol or drug abuse patient.[facility] CenterIn the event this information is protected by the Federal Confidentiality of Alcohol and Drug Abuse Patient Records regulations: The Federal rules restrict any use of the information to criminally investigate or prosecute any alcohol or drug abuse patient.[facility] CenterIn the event this information is protected by the Federal Confidentiality of Alcohol and Drug Abuse Patient Records regulations: The Federal rules restrict any use of the information to criminally investigate or prosecute any alcohol or drug abuse patient.[facility] CenterIn the event this information is protected by the Federal Confidentiality of Alcohol and Drug Abuse Patient Records regulations: The Federal rules restrict any use of the information to criminally investigate or prosecute any alcohol or drug abuse patient.[facility] CenterIn the event this information is protected by the Federal Confidentiality of Alcohol and Drug Abuse Patient Records regulations: The Federal rules restrict any use of the information to criminally investigate or prosecute any alcohol or drug abuse patient.[facility] CenterIn the event this information is protected by the Federal Confidentiality of Alcohol and Drug Abuse Patient Records regulations: The Federal rules restrict any use of the information to criminally investigate or prosecute any alcohol or drug abuse patient.[facility] CenterIn the event this information is protected by the Federal Confidentiality of Alcohol and Drug Abuse Patient Records regulations: The Federal rules restrict any use of the information to criminally investigate or prosecute any alcohol or drug abuse patient.[facility] CenterIn the event this information is protected by the Federal Confidentiality of Alcohol and Drug Abuse Patient Records regulations: The Federal rules restrict any use of the information to criminally investigate or prosecute any alcohol or drug abuse patient.[facility] CenterIn the event this information is protected by the Federal Confidentiality of Alcohol and Drug Abuse Patient Records regulations: The Federal rules restrict any use of the information to criminally investigate or prosecute any alcohol or drug abuse patient.[facility] CenterIn the event this information is protected by the Federal Confidentiality of Alcohol and Drug Abuse Patient Records regulations: The Federal rules restrict any use of the information to criminally investigate or prosecute any alcohol or drug abuse patient.[facility] CenterIn the event this information is protected by the Federal Confidentiality of Alcohol and Drug Abuse Patient Records regulations: The Federal rules restrict any use of the information to criminally investigate or prosecute any alcohol or drug abuse patient.[facility] CenterIn the event this information is protected by the Federal Confidentiality of Alcohol and Drug Abuse Patient Records regulations: The Federal rules restrict any use of the information to criminally investigate or prosecute any alcohol or drug abuse patient.[facility] CenterIn the event this information is protected by the Federal Confidentiality of Alcohol and Drug Abuse Patient Records regulations: The Federal rules restrict any use of the information to criminally investigate or prosecute any alcohol or drug abuse patient.[facility] CenterIn the event this information is protected by the Federal Confidentiality of Alcohol and Drug Abuse Patient Records regulations: The Federal rules restrict any use of the information to criminally investigate or prosecute any alcohol or drug abuse patient.[facility] CenterIn the event this information is protected by the Federal Confidentiality of Alcohol and Drug Abuse Patient Records regulations: The Federal rules restrict any use of the information to criminally investigate or prosecute any alcohol or drug abuse patient.[facility] CenterIn the event this information is protected by the Federal Confidentiality of Alcohol and Drug Abuse Patient Records regulations: The Federal rules restrict any use of the information to criminally investigate or prosecute any alcohol or drug abuse patient.[facility] CenterIn the event this information is protected by the Federal Confidentiality of Alcohol and Drug Abuse Patient Records regulations: The Federal rules restrict any use of the information to criminally investigate or prosecute any alcohol or drug abuse patient.[facility] CenterIn the event this information is protected by the Federal Confidentiality of Alcohol and Drug Abuse Patient Records regulations: The Federal rules restrict any use of the information to criminally investigate or prosecute any alcohol or drug abuse patient.[facility] CenterIn the event this information is protected by the Federal Confidentiality of Alcohol and Drug Abuse Patient Records regulations: The Federal rules restrict any use of the information to criminally investigate or prosecute any alcohol or drug abuse patient.[facility] CenterIn the event this information is protected by the Federal Confidentiality of Alcohol and Drug Abuse Patient Records regulations: The Federal rules restrict any use of the information to criminally investigate or prosecute any alcohol or drug abuse patient.[facility] CenterIn the event this information is protected by the Federal Confidentiality of Alcohol and Drug Abuse Patient Records regulations: The Federal rules restrict any use of the information to criminally investigate or prosecute any alcohol or drug abuse patient.[facility] CenterIn the event this information is protected by the Federal Confidentiality of Alcohol and Drug Abuse Patient Records regulations: The Federal rules restrict any use of the information to criminally investigate or prosecute any alcohol or drug abuse patient.[facility] CenterIn the event this information is protected by the Federal Confidentiality of Alcohol and Drug Abuse Patient Records regulations: The Federal rules restrict any use of the information to criminally investigate or prosecute any alcohol or drug abuse patient.[facility] Reason for Visit (unrecogniz ed section and content) Specialty Diagnoses / Procedures Referred By Contac t Referred To Contact Diagnoses 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) Procedures INJECTION, RITUXIMAB, 10 MG INJECTION, RITUXIMAB 10 MG AND HYALURONIDASE INJ., BELRAPZO / BENDAMUSTINE PALONOSETRON [place] Karo Hill [place] [id number] [place] [address] [facility] [address] [place] [address] Referral ID Status Reason Start Date Expiration Date V isits Requested Visits Authorized [id number] Authorized 08/02/2021 01/19/2022 [address] Specialty Diagnoses / Procedures Referred By Contac t Referred To Contact CT IMAGING Diagnoses 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) Procedures CT CHEST W IVCON DIAGNOSTIC COMPUTED TOMOGRAPHY THORAX W/CONTRAST Karo Hill MD [address] [place] [address] [address] Imaging Referral ID Status Reason Start Date Expiration Date V isits Requested Visits Authorized [id number] Closed Auto-Generate d Referral 10/06/2021 11/04/2021 2 2 Reason Comments Established Patient Reason Comments Treatment Planning Evusheld Referral ID Status Reason Start Date Expiration Date V isits Requested Visits Authorized [id number] Closed Auto-Generate d Referral 01/19/2022 02/17/2022 [address] Reason Comments Treatment Planning Evusheld Reason Comments Follow Up Pain with intercours e Reason Comments Patient Question Care Coordination Reason Comments Well Woman Reason Onset Date Comments Refill Request 05/15/2022 Reason Comments vaginal pain 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 Reason Comments Medication Problem Specialty Diagnoses / Procedures Referred By Contac t Referred To Contact CT IMAGING Diagnoses 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) Procedures CT CHEST W IVCON DIAGNOSTIC COMPUTED TOMOGRAPHY THORAX W/CONTRAST Ahsan, [place] [address] [place] [address] [place] [address] Referral ID Status Reason Start Date Expiration Date V isits Requested Visits Authorized [id number] Closed Auto-Generate d Referral 08/24/2022 06/25/2023 2 2 Care Teams (unrecognized sec tion and content) Respiratory Manager Relationship Specialty Start Date End Date Sergio Landaverde MD [address] [place] [address] PCP - General Family Practice 07/25/21 Respiratory Manager Relationship Specialty Start Date End Date Sergio Landaverde MD [address] [place] [address] PCP - General Family Practice 07/25/21 Respiratory Manager Relationship Specialty Start Date End Date Sergio Landaverde MD [address] [place] [address] PCP - General Family Practice 07/25/21 Respiratory Manager Relationship Specialty Start Date End Date Sergio Landaverde MD [address] [place] [address] PCP - General Family Practice 07/25/21 Respiratory Manager Relationship Specialty Start Date End Date Sergio Landaverde MD [address] [place] [address] PCP - General Family Practice 07/25/21 Respiratory Manager Relationship Specialty Start Date End Date Sergio Landaverde MD [address] [place] [address] PCP - General Family Practice 07/25/21 Respiratory Manager Relationship Specialty Start Date End Date Sergio Landaverde MD [address] [place] [address] PCP - General Family Practice 07/25/21 Respiratory Manager Relationship Specialty Start Date End Date Sergio Landaverde MD [address] [place] [address] PCP - General Family Practice 07/25/21 Respiratory Manager Relationship Specialty Start Date End Date Sergio Landaverde MD [address] [place] [address] PCP - General Family Practice 07/25/21 Respiratory Manager Relationship Specialty Start Date End Date Sergio Landaverde MD [address] [place] [address] PCP - General Family Practice 07/25/21 Respiratory Manager Relationship Specialty Start Date End Date Sergio Landaverde MD [address] [place] [address] PCP - General Family Practice 07/25/21 Respiratory Manager Relationship Specialty Start Date End Date Sergio Landaverde MD [address] [place] [address] PCP - General Family Practice 07/25/21 Respiratory Manager Relationship Specialty Start Date End Date Sergio Landaverde MD [address] [place] [address] PCP - General Family Practice 07/25/21 Respiratory Manager Relationship Specialty Start Date End Date Sergio Landaverde MD [address] [place] [address] PCP - General Family Practice 07/25/21 Respiratory Manager Relationship Specialty Start Date End Date Sergio Landaverde MD [address] [place] [address] PCP - General Family Practice 07/25/21 Respiratory Manager Relationship Specialty Start Date End Date Sergio Landaverde MD [address] [place] [address] PCP - General Family Practice 07/25/21 Respiratory Manager Relationship Specialty Start Date End Date Sergio Landaverde MD [address] [place] [address] PCP - General Family Practice 07/25/21 Respiratory Manager Relationship Specialty Start Date End Date Sergio Landaverde MD [address] [place] [address] PCP - General Family Practice 07/25/21 Respiratory Manager Relationship Specialty Start Date End Date Sergio Landaverde MD [address] [place] [address] PCP - General Family Practice 07/25/21 Respiratory Manager Relationship Specialty Start Date End Date Sergio Landaverde MD [address] [place] [address] PCP - General Family Practice 07/25/21 Respiratory Manager Relationship Specialty Start Date End Date Sergio Landaverde MD [address] [place] [address] PCP - General Family Practice 07/25/21 Respiratory Manager Relationship Specialty Start Date End Date Sergio Landaverde MD [address] [place] [address] PCP - General Family Medicine 07/25/21 Respiratory Manager Relationship Specialty Start Date End Date Sergio Landaverde MD [address] [place] [address] PCP - General Family Medicine 07/25/21 Respiratory Manager Relationship Specialty Start Date End Date Sergio Landaverde MD [address] [place] [address] PCP - General Family Medicine 07/25/21 Respiratory Manager Relationship Specialty Start Date End Date Sergio Landaverde MD [address] [place] [address] PCP - General Family Medicine 07/25/21 Respiratory Manager Relationship Specialty Start Date End Date Sergio Landaverde MD [address] [place] [address] PCP - General Family Medicine 07/25/21 Respiratory Manager Relationship Specialty Start Date End Date Sergio Landaverde MD [address] [facility] [address] [place], [place] [address] PCP - General Family Medicine 07/25/21 Respiratory Manager Relationship Specialty Start Date End Date Sergio Landaverde MD [address] [facility] [address] [place], [place] [address] PCP - General Family Medicine 07/25/21 Respiratory Manager Relationship Specialty Start Date End Date Sergio Landaverde MD [address] [facility] [address] [place], [place] [address] PCP - General Family Medicine 07/25/21 Respiratory Manager Relationship Specialty Start Date End Date Sergio Landaverde MD [address] [facility] [address] [place], [place] [id number] PCP - General Family Medicine 07/25/21 FOR RECORDS PERTAINING TO PATIENTS WHO ARE OR HAVE BEEN ENROLLED IN A CHEMICAL DEPENDENCY/SUBSTANCEABUSE PROGRAM, SOME INFORMATION MAY BE OMITTED. This clinical summary was aggregated from multiple sources. Caution should be exercised in using it in the provision of clinical care. This summary normalizes information from multiple sources, and as a consequence, information in this document may materially change the coding, format and clinical context of patient data. In addition, data may be omitted in some cases. CLINICAL DECISIONS SHOULD BE BASED ON THE PRIMARY CLINICAL RECORDS. [facility]. provides no warranty or guarantee of the accuracy or completeness of information in this document.
[2023-08-03] MEDS: Lactated Ringers 1,000 ML 15 ML IV (07:59)
--- NOTE | 2023-08-03 08:32 | RAD_ITS ---
STUDY: X-RAY - LEFT FOOT CLINICAL: Female, 58 years old. FX TECHNIQUE: 1 view(s) of the foot. COMPARISON: None. FINDINGS: Intraoperative fluoroscopic services. Hardware removal. RAD/Foot 2 Views IMPRESSION: Intraoperative fluoroscopic services were provided. Hardware removal. Electronically Signed: Yimi Abbasi MD at 12:36 EST ,
[2023-08-03] MEDS: Cefazolin 2 GM in 0.9% Normal Saline (100mL Bag) 100 ML IV (08:57)
[2023-08-03] MEDS: Bupivacaine Mpf 0.5% 30 ML VIAL (09:21)
--- NOTE | 2023-08-03 10:07 | OP.PCM_ITS ---
Problems Associated Problem List Diagnoses (1) Pain in left foot: Report of Operation Date of Procedure: 08/03/23 Pre-Operative Diagnosis: Symptomatic hardware left foot Post-Operative Diagnosis: Same Surgery/Procedure Performed:: Removal of hardware, left foot Surgeon: Benson Sierra steel die printer: Type of Anesthesia: General and Local Specimen's removed: None Estimated Blood Loss (mL): < 1 mL Description of Procedure: Indications: This is a 58 year old female with history of left 1st metatarsal cuneiform joint arthrodesis bunionectomy. There is symptomatic hardware. She would like to proceed with hardware removal. This was discussed with her, revie wed the procedure, as well as the rationale of the procedure with her. We discussed and reviewed the possible benefits vs risks/potential complications. The estimated healing/recovery time and protocol were reviewed with her. Reviewed the goals and the expectations. She expressed understanding and agreement and elected to proceed forward with surgical intervention of removing the hardware as noted above. We discussed placement of tightrope across lisfranc's ligament due to history of instability. She would like to avoid placement of further hardware/implants in foot. We decided lisfranc joint/ ligament would be stressed intraop and if no significant instability is present will not place tightrope. The consent forms were reviewed with her and she freely signed them. All of her questions were answered. No guarantees were given nor implied. She was cleared from medical standpoint to proceed with surgery. Operative Procedure: She was brought back into the operating room and was placed on the operating table in the supine position; and was carefully secured to the operating room table with a safety belt around her waist. A time out was performed and she was properly identified and the surgical plan was confirmed. IV antibiotic prophylaxis - 2g of Ancef was given. General anesthesia per the anesthesiologist was administred. A well padded pneumatic tourniquet was applied around her left ankle, but was not inflated for this procedure. A total of 10mL of 0.5% Bupivacaine was given as a local block around the 1st ray hardware site on the left foot after the overlying skin was cleansed with 70% Isopropyl alcohol. The left foot was scrubbed, prepped, and draped in the usual aseptic fashion. Left foot was exsanguinated using an Esmarch bandage and the left ankle pneumatic tourniquet was inflated to 250mmHg. Attention was directed to the left foot at the level of the 1st metatarsal cuneiform joint fusion site. A linear longitudinal skin incision was medially along the medial 1st metatarsal cuneiform joint fusion site - directly over the previous incision. This was done using a 15 blade. Careful dissection was completed down to the hardware. The screws and the plate were removed in toto without complication. This was checked and confirmed with intraoperative fluoroscopy, images were saved. The arthrodesis site was rigid and very stable, it was fused. Lisfranc joint and li gament were stressed intraoperatively under fluoroscopy and no significant instability was present so no tightrope was placed. Tissues were healthy and viable at this time. The subcutaneous tissue layers were reapproximated using? 3-0 Vicryl and the skin was reapproximated using 4-0 Monocryl. Cavailon was painted to the edges of the sutured skin incision and steristrips were applied across the sutured skin incision. The left ankle pneumatic tourniquet was deflated (total time was 41 minutes) and there immediate return of perfusion to the foot. There was noted to be normal warmth and perfusion to the foot and to all toes on the foot with normal temperature gradient and CFT < 2 seconds to all toes. A dressing was applied which consisted of betadine soaked adaptic, 4x4 gauze, kerlix, and an amber bandage. Of note, hemostasis was achieved throughout the case. Of note, all vital structures including all vital neurovascular and tendon structures were properly identified, protected, and retracted as necessary throughout the above operative procedures. The patient tolerated the above operative procedures well at the anesthesia well with no complication. The patient was transported from the operating room to the recovery room with vital signs stable and in good condition. Post operative orders were placed. Post operative instructions were reviewed. No weightbearing left foot foot, keep left foot elevated for at least 50 minutes of every hour, keep dressing clean, dry and intact. Grafts/Implants Used: None Complications None
--- NOTE | 2023-08-03 10:11 | DCINST_ITS ---
Discharge Instructions Diet Discharge Diet: Light diet - advance as tolerated Activity Weight Bearing Status: No weight bearing (No weightbearing left foot) Keep extremity elevated above heart level: Left Leg (Keep left foot elevated) Dressing / Incision Call your doctor if your incision/area has: Continuous Slow Oozing, Sudden Increased Bleeding and Foul Smelling Discharge Call your doctor if you observe: Fever of 101 or Higher, Shortness of breath, Chest pain, Increased palpitations (irregular heartbeat), Calf discomfort and Uncontrolled pain Change Dressing in: do not change dressing Remove Dressing in: do not remove dressing Cleanse incision/area with: Keep Dressing Clean & Dry Follow Up Care Please Follow Up With: Benson Sierra DPM When: 1 week at office ([facility]), sooner if needed. Test Results: Test results from this visit will be discussed in further detail at your follow- up appointment, if applicable. Discharge Plan Admission Attending Provider: Benson Sierra Primary Care Provider: Kushal Landaverde Discharge Orders/Prescriptions Prescriptions: New oxycodone-acetaminophen [Percocet] 5-325 mg tablet 1 tab PO Q6H PRN (Reason: pain) 3 Days Qty: 21 0RF No Action duloxetine [Cymbalta] 20 mg capsule,delayed release(DR/EC) 20 mg PO DAILY cholecalciferol (vitamin D3) [Vitamin D3] 25 mcg (1,000 unit) Capsule 25 mcg PO DAILY [place] 3 Capsule 1,000 mg PO DAILY Vitamin B-12 1,000 mcg Lozenge 1,000 mcg PO QODAY calcium carbonate [Calcium 600] 600 mg calcium (1,500 mg) Tablet 600 mg PO DAILY biotin 10 mg tablet 10 mg PO DAILY Referrals / Follow Up: Kushal Landaverde MD [Primary Care Provider] - Disposition Disposition (needs filled in before D/C Order can be placed): Home, Self Care
--- NOTE | 2023-08-03 10:25 | RAD_ITS ---
STUDY: X-RAY - LEFT FOOT CLINICAL: Female, 58 years old. post op TECHNIQUE: 3 view(s) of the foot. COMPARISON: 09/22/2022. FINDINGS: Normal talus, calcaneus, and tarsal bones. Removal of surgical hardware of the medial foot. Stable alignment. 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 Normal tibial and fibular sesamoid bones. Normal interphalangeal joint of the great toe. Normal phalanges of the great toe. Fixation screw spanning the second digit. Surgical screws are seen in the second metatarsal. Expected soft tissue swelling with small locules of air given recent surgery. RAD/Foot min 3 Views IMPRESSION: 1. Removal of surgical hardware. Stable alignment. Electronically Signed: Fran Bianchi MD ([place]) at 18:29 EST ,
== END 2023-08-03 11:25 | disposition home or self-care (01) ==
LOC: SDC 07:27 → AC 07:30
PROVIDERS: PCP Family Medicine; Referring Provider Podiatrist; Visit Provider Podiatrist
PROC: (CPT 20680; principal; 2023-08-03 08:45)
DX: M79.672 Pain in left foot (principal); C82.90 Follicular lymphoma, unspecified, unspecified site; E83.52 Hypercalcemia; E87.5 Hyperkalemia; F32.A Depression, unspecified; E55.9 Vitamin D deficiency, unspecified
CPT/HCPCS: 20680; 01480; 73620; 73630; 76000; J7120; J2405

== ENCOUNTER → 2023-08-24 | Outpatient (CLI) | payer BC, SELFPAY ==
[2023-08-24 15:52] LABS: PTHIN 37.4 pg/mL (18.4-80.1)
[2023-08-24 16:03] LABS: Anion Gap 5 (5-15); BUN 13 mg/dL (7-18); Calcium,Total 9.6 mg/dL (8.5-10.1); Chloride 106 mmol/L (98-107); Creatinine, Serum 0.81 mg/dL (0.55-1.02); EST Glomerular Filtration Rate 76 mL/min (>60); Est Glom Filt Rate - Afr Amer 92 mL/min (>60); Glucose 93 mg/dL (74-106); Magnesium 2.3 mg/dL (1.6-2.6); Potassium 3.5 mmol/L (3.5-5.1); Sodium Level 140 mmol/L (136-145); Thyroid Stim Hormone (TSH) 1.57 uIU/mL (0.358-3.74)
[2023-08-24 16:05] LABS: Vitamin D,25 Hydroxy 48.5 ng/mL
== END | disposition home or self-care (01) ==
PROVIDERS: PCP Family Medicine; Referring Provider Family Medicine; Visit Provider Family Medicine
DX: E83.52 Hypercalcemia (principal)
CPT/HCPCS: 36415; 80048; 82306; 83735; 83970; 84443

== ENCOUNTER → 2023-08-29 | Outpatient (CLI) | payer BC, SELFPAY ==
--- OUTSIDE RECORDS SUMMARY | 2023-08-29 09:21 | XMS RPT_ITS | CCD ---
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 Name Role Phone Saima SIMMS, Sergio Underwood [...] UnavailKARO Dias Attending Unavailable SERGIO LANDAVERDE [facility] Minoabl mesfin Allergies Allergy Classification Reported Allergen(s) Allergy Type Date of Onset Reaction(s) Facility (20 sources) Sulfamethoxazole / Trimethoprim; Translations: [SULFAMETHOXAZOLE-TRI METHOPRIM] Drug Allergy 0 [facility] Medications Current Medications Medication Drug Class(es) [...] 97.9 [degF] Karo Hill MD Work Phone: [facility] 09-01-2022 09:04-0400 Body weight 55.11 kg Karo Hill MD Work Phone: [facility] 09-01-2022 09:04-0400 Diastolic blood pressure 68 mm[Hg] Karo Hill MD Work Phone: [facility] 09-01-2022 09:04-0400 Heart rate 70 /min Karo iHll MD Work Phone: [facility] 09-01-2022 09:04-0400 Respiratory rate 20 /min Karo Hill MD Work Phone: [facility] 09-01-2022 09:04-0400 SaO2% (BldA) [Mass fraction] 99 % Karo Hill MD Work Phone: [facility] 09-01-2022 09:04-0400 Systolic blood pressure 127 mm[Hg] Karo Hill MD Work Phone: [facility] 06-01-2022 10:01-0500 Body weight 56.2 kg My Borges MD Work Phone: [facility] 06-01-2022 10:01-0500 Diastolic blood pressure 82 mm[Hg] yM Borges MD Work Phone: [facility] 06-01-2022 10:01-0500 Systolic blood pressure 132 mm[Hg] My Borges MD Work Phone: [facility] 03-17-2022 09:46-0400 Body height 161.5 cm My Borges MD Work Phone: [facility] 03-17-2022 09:46-0400 Body weight 53.98 kg My Borges MD Work Phone: [facility] 03-17-2022 09:46-0400 Diastolic blood pressure 60 mm[Hg] My Borges MD Work Phone: [facility] 03-17-2022 09:46-0400 Systolic blood pressure 100 mm[Hg] My Borges MD Work Phone: [facility] 02-13-2022 08:47-0400 Body weight 55.25 kg My Borges MD Work Phone: [facility] 02-13-2022 08:47-0400 Diastolic blood pressure 70 mm[Hg] My Borges MD Work Phone: [facility] 02-13-2022 08:47-0400 Systolic blood pressure 106 mm[Hg] My Borges MD Work Phone: [facility] 02-10-2022 10:19-0400 Body temperature 98.01 [degF] Karo Hill MD Work Phone: [facility] 02-10-2022 10:19-0400 Body weight 54.8 kg Karo Hill MD Work Phone: [facility] 02-10-2022 10:19-0400 Diastolic blood pressure 65 mm[Hg] Karo Hill MD Work Phone: [facility] 02-10-2022 10:19-0400 Heart rate 63 /min Karo Hill MD Work Phone: [facility] 02-10-2022 10:19-0400 Respiratory rate 16 /min Karo Hill MD Work Phone: [facility] 02-10-2022 10:19-0400 SaO2% (BldA) [Mass fraction] 100 % Karo Hill MD Work Phone: [facility] 02-10-2022 10:19-0400 Systolic blood pressure 129 mm[Hg] Karo Hill MD Work Phone: [facility] 12-29-2021 09:40-0400 Body temperature 98.4 [degF] Chair Joseph/Bmt Work Phone: [facility] 12-29-2021 09:40-0400 Diastolic blood pressure 71 mm[Hg] Chair Joseph/Bmt Work Phone: [facility] 12-29-2021 09:40-0400 Heart rate 69 /min Chair Joseph/Bmt Work Phone: [facility] 12-29-2021 09:40-0400 Respiratory rate 18 /min Chair Joseph/Bmt Work Phone: [facility] 12-29-2021 09:40-0400 Systolic blood pressure 113 mm[Hg] Chair Joseph/Bmt Work Phone: [facility] 12-28-2021 10:56-0400 Body temperature 97.39 [degF] Karo Hill MD Work Phone: [facility] 12-28-2021 10:56-0400 Body weight 54.2 kg Karo Hill MD Work Phone: [facility] 12-28-2021 10:56-0400 Diastolic blood pressure 80 mm[Hg] Karo Hill MD Work Phone: [facility] 12-28-2021 10:56-0400 Heart rate 65 /min Karo Hill MD Work Phone: [facility] 12-28-2021 10:56-0400 Respiratory rate 18 /min Karo Hill MD Work Phone: [facility] 12-28-2021 10:56-0400 SaO2% (BldA) [Mass fraction] 100 % Karo Hill MD Work Phone: [facility] 12-28-2021 10:56-0400 Systolic blood pressure 126 mm[Hg] Karo Hill MD Work Phone: [facility] 12-01-2021 08:50-0400 Body temperature 97.81 [degF] Chair Joseph/Bmt Work Phone: [facility] 12-01-2021 08:50-0400 Diastolic blood pressure 76 mm[Hg] Chair Joseph/Bmt Work Phone: [facility] 12-01-2021 08:50-0400 Heart rate 76 /min Chair Joseph/Bmt Work Phone: [facility] 12-01-2021 08:50-0400 Respiratory rate 18 /min Chair Joseph/Bmt Work Phone: [facility] 12-01-2021 08:50-0400 Systolic blood pressure 96 mm[Hg] Chair Joseph/Bmt Work Phone: [facility] 11-30-2021 11:04-0400 Body temperature 98.6 [degF] Karo Hill MD Work Phone: [facility] 11-30-2021 11:04-0400 Body weight 53.52 kg Karo Hill MD Work Phone: [facility] 11-30-2021 11:04-0400 Diastolic blood pressure 74 mm[Hg] Karo Hill MD Work Phone: [facility] 11-30-2021 11:04-0400 Heart rate 85 /min Karo Hill MD Work Phone: [facility] 11-30-2021 11:04-0400 Respiratory rate 18 /min Karo Hill MD Work Phone: [facility] 11-30-2021 11:04-0400 SaO2% (BldA) [Mass fraction] 100 % Karo Hill MD Work Phone: [facility] 11-30-2021 11:04-0400 Systolic blood pressure 119 mm[Hg] Karo Hill MD Work Phone: [facility] 11-03-2021 09:29-0400 Body temperature 98.1 [degF] Chair Joseph/Bmt Work Phone: [facility] 11-03-2021 09:29-0400 Diastolic blood pressure 88 mm[Hg] Chair Joseph/Bmt Work Phone: [facility] 11-03-2021 09:29-0400 Heart rate 74 /min Chair Joseph/Bmt Work Phone: [facility] 11-03-2021 09:29-0400 Respiratory rate 16 /min Chair Joseph/Bmt Work Phone: [facility] 11-03-2021 09:29-0400 Systolic blood pressure 141 mm[Hg] Chair Joseph/Bmt Work Phone: [facility] 11-02-2021 08:24-0400 Body height 161.8 cm Karo Hill MD Work Phone: [facility] 11-02-2021 08:24-0400 Body temperature 97.9 [degF] Karo Hill MD Work Phone: [facility] 11-02-2021 08:24-0400 Body weight 54.16 kg Karo Hill MD Work Phone: [facility] 11-02-2021 08:24-0400 Diastolic blood pressure 82 mm[Hg] Karo Hill MD Work Phone: [facility] 11-02-2021 08:24-0400 Heart rate 73 /min Karo Hill MD Work Phone: [facility] 11-02-2021 08:24-0400 Respiratory rate 16 /min Karo Hill MD Work Phone: [facility] 11-02-2021 08:24-0400 SaO2% (BldA) [Mass fraction] 100 % Karo Hill MD Work Phone: [facility] 11-02-2021 08:24-0400 Systolic blood pressure 125 mm[Hg] Karo Hill MD Work Phone: [facility] 10-06-2021 12:30-0400 Body temperature 98.91 [degF] Chair Joseph/Bmt Work Phone: [facility] 10-06-2021 12:30-0400 Diastolic blood pressure 76 mm[Hg] Chair Joseph/Bmt Work Phone: [facility] 10-06-2021 12:30-0400 Heart rate 73 /min Chair Joseph/Bmt Work Phone: [facility] 10-06-2021 12:30-0400 Respiratory rate 18 /min Chair Joseph/Bmt Work Phone: [facility] 10-06-2021 12:30-0400 Systolic blood pressure 135 mm[Hg] Chair Joseph/Bmt Work Phone: [facility] 10-05-2021 08:29-0400 Body temperature 97.9 [degF] Karo Hill MD Work Phone: [facility] 10-05-2021 08:29-0400 Body weight 54.43 kg Karo Hill MD Work Phone: [facility] 10-05-2021 08:29-0400 Diastolic blood pressure 71 mm[Hg] Karo Hill MD Work Phone: [facility] 10-05-2021 08:29-0400 Heart rate 71 /min Karo Hill MD Work Phone: [facility] 10-05-2021 08:29-0400 Respiratory rate 16 /min Karo Hill MD Work Phone: [facility] 10-05-2021 08:29-0400 SaO2% (BldA) [Mass fraction] 100 % Karo Hill MD Work Phone: [facility] 10-05-2021 08:29-0400 Systolic blood pressure 133 mm[Hg] Karo Hill MD Work Phone: [facility] 09-08-2021 14:38-0400 Body temperature 97.9 [degF] Chair Joseph/Bmt Work Phone: [facility] 09-08-2021 14:38-0400 Diastolic blood pressure 63 mm[Hg] Chair Joseph/Bmt Work Phone: [facility] 09-08-2021 14:38-0400 Heart rate 75 /min Chair Joseph/Bmt Work Phone: [facility] 09-08-2021 14:38-0400 Respiratory rate 18 /min Chair Joseph/Bmt Work Phone: [facility] 09-08-2021 14:38-0400 Systolic blood pressure 110 mm[Hg] Chair Joseph/Bmt Work Phone: [facility] 09-07-2021 14:16-0400 Body temperature 98.29 [degF] Chair Joseph/Bmt Work Phone: [facility] 09-07-2021 14:16-0400 Diastolic blood pressure 55 mm[Hg] Chair Joseph/Bmt Work Phone: [facility] 09-07-2021 14:16-0400 Heart rate 79 /min Chair Joseph/Bmt Work Phone: [facility] 09-07-2021 14:16-0400 Respiratory rate 18 /min Chair Joseph/Bmt Work Phone: [facility] 09-07-2021 14:16-0400 Systolic blood pressure 114 mm[Hg] Chair Joseph/Bmt Work Phone: [facility] 09-07-2021 09:37-0400 Body temperature 98.8 [degF] Karo Hill MD Work Phone: [facility] 09-07-2021 09:37-0400 Body weight 53.89 kg Karo Hill MD Work Phone: [facility] 09-07-2021 09:37-0400 Diastolic blood pressure 80 mm[Hg] Karo Hill MD Work Phone: [facility] 09-07-2021 09:37-0400 Heart rate 68 /min Karo Hill MD Work Phone: [facility] 09-07-2021 09:37-0400 Respiratory rate 16 /min Karo Hill MD Work Phone: [facility] 09-07-2021 09:37-0400 SaO2% (BldA) [Mass fraction] 100 % Karo Hill MD Work Phone: [facility] 09-07-2021 09:37-0400 Systolic blood pressure 134 mm[Hg] Karo Hill MD Work Phone: [facility] Encounters Encounter Date Encounter Type Care Provider Facility Start: 07-04-2023 End: 07-05-2023 ambulatory KARO HILL Facility:[facility] Start: 01-03-2023 End: 01-04-2023 ambulatory KARO HILL Facility:[facility] Start: 09-01-2022 End: 09-01-2022 ambulatory KARO HILL Facility:[facility] Start: 09-01-2022 End: 09-01-2022 Office outpatient visit [...] Start: 01-03-2026 Diabetes Screening Diabetes Screenin g [facility] Start: 08-30-2025 DIABETES SCREEN DIABETES SCREEN [facility] Start: 05-26-2025 DIABETES SCREEN DIABETES SCREEN [facility] Start: 02-08-2025 DIABETES SCREEN DIABETES SCREEN [facility] Start: 12-28-2024 DIABETES SCREEN DIABETES SCREEN [facility] Start: 11-30-2024 DIABETES SCREEN DIABETES SCREEN [facility] Start: 11-01-2024 DIABETES SCREEN DIABETES SCREEN [facility] Start: 10-04-2024 DIABETES SCREEN DIABETES SCREEN [facility] Start: 09-07-2024 DIABETES SCREEN DIABETES SCREEN [facility] Start: 06-25-2024 HPV TESTING HPV TESTING [facility] Start: 06-25-2024 PAP TESTING PAP TESTING [facility] Start: 2023 RSV Vaccine (1 - 1-d ose 60+ series) RSV Vaccine (1 - 1-dose 60+ series) [facility] Start: 02-16-2023 Influenza vaccination Influenza Vacc ine (#1) [facility] Start: 02-15-2023 Mammography [facility] Start: 02-08-2023 Adult depression screening assessment DEPRESSION SCREENING [facility] Start: 12-30-2022 End: 03-01-2023 CBC W Auto Differential panel - Blood CBC + DIFF Lab Routine 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) Expected: 12/30/2022 (Approximate), Expires: 03/01/2023 [facility] Work Phone: Immunizations Immunization Date Immunization Notes Care Provider Fa cility 05-30-2022 influenza virus vacc ine, unspecified formulation Ct (I-Stat) Work Phone: [facility] Payers Date Payer Category Payer Unknown JESSE SHAH STANISLAV [employer]ISON PPO [id number] 2017-Present [phone] [address] [place] [address] PPO [id number] 2017 Unknown JESSE ALLISON PPO [id number] 2017-Present [phone] [address] [place] [address] PPO [id number] 2017 Unknown [id number] Social History Date Type Detail Facility Start: 06-25-2019 End: 02-13-2022 Tobacco smoking status NHIS Never smoked tobacco [facility] Start: 06-25-2019 End: 02-13-2022 Tobacco use and exposure Smokeless tobacco non-user [facility] Start: 08-01-2021 End: 06-01-2022 Alcohol intake Current drinker of alcohol (finding) [facility] Start: 06-25-2019 End: 10-23-2019 History SDOH Alcohol Frequency 2 [facility] Start: 06-25-2019 End: 10-23-2019 History SDOH Alcohol Std Drinks 1 [facility] Start: 06-25-2019 History SDOH Social Connections Phone 3 [facility] Start: 06-25-2019 History SDOH Physica l Activity DPW 5 [facility] Start: 06-25-2019 History SDOH Stress 4 [facility] Start: 1965 Sex Assigned At Female C [facility] Start: 08-28-2021 End: 02-10-2022 Exposure to SARS-CoV-2 (event) Not sure [facility] Start: 06-25-2019 End: 07-13-2022 History of Social function [facility] Start: 06-25-2019 End: 07-13-2022 Social connection and isolation panel [facility] Do you belong to any clubs or organizations such as rastafari groups, unions, fraternal or athletic groups, or school groups? Yes [facility] Are you now , , , , never or living with a partner? [facility] How often to you hav e a drink containing alcohol? Monthly or less [facility] How many standard dr inks containing alcohol do you have on a typical day? 1 or 2 [facility] How often do you hav e 6 or more drinks on 1 occasion? Never [facility] How hard is it for y ou to pay for the very basics like food, housing, medical care, and heating Not hard at all [facility] Do you feel stress - tense, restless, nervous, or anxious, or unable to sleep at night because your mind is troubled all the time - these days [OSQ] Rather much [facility] (I/We) worried wheth er (my/our) food would run out before (I/we) got money to buy more. Never true [facility] Start: 10-22-2019 Gender identity Identifies as female gender (finding) [facility] Start: 10-22-2019 Sexual orientation Heterosexual (fin ding) [facility] Clinical Notes 08-09-2021 to 07-04-2023 Karo Hill MD - 09/01/2022 9:18 AM Emmanuel Pro RN - 09/01/2022 9:05 AM Kylee Leonard RT(R) - 08/30/2022 11:00 AM Brian Borges MD - 06/01/2022 10:05 AM EST Note Date & Type Note Facility 07-04-2023 Note HNO ID: [id number] Author: KARO HILL MD Service: ? Author Type: Physician Type: Progress Notes Filed: 07/04/2023 16:32 Note Text: [facility] CLINICAL NOTE Department of Hematology and Medical Oncology PATIENT NAME: Aydin Renee [facility] NO.: [id number] ATTENDING PHYSICIAN: Karo Hill MD DATE OF [...] PCP. No other specific concerns. MEDICATIONS: Per [employer]. REVIEW OF SYSTEMS: As described above. ECOG [...] Abs Lymph 1.00 - 4.00 k/uL 1.16 Stone% % 12.9 Abs Stone <0.87 k/uL 0.48 Eosin% % 0.5 Abs [...] which included preparing to see the patient, [id number] patient care, completing clinical documentation, obtaining and/or reviewing separately obtained history, performing a medically appropriate examination, counseling and educating the patient/family/caregiver, and ordering medications, tests, or procedures. Karo Hill MD cc: Sergio Landaverde MD; ; [facility] 01-03-2023 Note HNO ID: [id number] Author: Karo Hill MD Service: ? Author Type: Physician Type: Progress Notes Filed: 01/03/2023 4:53 PM Note Text: [facility] CLINICAL NOTE Department of Hematology and Medical Oncology PATIENT NAME: Aydin Renee [facility] NO.: [id number] ATTENDING PHYSICIAN: Karo Hill MD DATE OF [...] Lymph 1.00 - 4.00 k/uL 0.92 (L) Stone% % 15.9 Abs Stone <0.87 k/uL 0.50 Eosin% % 1.6 Abs [...] which included preparing to see the patient, [id number] patient care, completing clinical documentation, obtaining and/or reviewing separately obtained history, performing a medically appropriate examination, counseling and educating the patient/family/caregiver, and ordering medications, tests, or procedures. Karo Hill MD cc: Sergio Landaverde MD; ; [facility] 01-03-2023 Note HNO ID: [id number] Author: Serjio Ohara MD Service: ? Author Type: Fellow Type: Progress Notes Filed: 01/03/2023 4:53 PM Note Text: [facility] CLINICAL NOTE Department of Hematology and Medical Oncology PATIENT NAME: Aydin Renee [facility] NO.: [id number] ATTENDING PHYSICIAN: Karo Hill MD DATE OF [...] and diarrhea, no weight loss. MEDICATIONS: Per [employer]. REVIEW OF SYSTEMS: As described above. ECOG [...] - 4.00 k/uL 0.60 (L) 0.92 (L) Stone% % 13.5 15.9 Abs Stone <0.87 k/uL 0.49 0.50 Eosin% % 1.4 [...] staff MD Serjio Zhou MD Hematology/Oncology Fellow [facility] 09-01-2022 Note HNO ID: [id number] Author: Karo Hill MD Service: ? Author Type: Physician Type: Progress Notes Filed: 09/01/2022 2:12 PM Note Text: [facility] CLINICAL NOTE Department of Hematology and Medical Oncology PATIENT NAME: Aydin Renee [facility] NO.: [id number] ATTENDING PHYSICIAN: Karo Hill MD DATE OF [...] Lymph 1.00 - 4.00 k/uL 0.60 (L) Stone% % 13.5 Abs Stone <0.87 k/uL 0.49 Eosin% % 1.4 Abs [...] which included preparing to see the patient, [id number] patient care, completing clinical documentation, obtaining and/or reviewing separately obtained history, performing a medically appropriate examination, counseling and educating the patient/family/caregiver, and ordering medications, tests, or procedures. Karo Hill MD cc: Sergio Landaverde MD; ; [facility] 09-01-2022 History of Present illness Narrative [facility]INICAL NOTE Department of Hematology and Medical Oncology PATIENT NAME: Aydin Renee CLINIC NO.: [id number] ATTENDING PHYSICIAN: Karo Hill MD DATE OF [...] Lymph 1.00 - 4.00 k/uL 0.60 (L) Stone% % 13.5 Abs Stone <0.87 k/uL 0.49 Eosin% % 1.4 Abs [...] which included preparing to see the patient, [id number] patient care, completing clinical documentation, obtaining and/or reviewing separately obtained history, performing a medically appropriate examination, counseling and educating the patient/family/caregiver, and ordering medications, tests, or procedures. Karo Hill MD cc: Sergio Landaverde MD; ; documented in this encounter [facility] 09-01-2022 Nurse Note Additional intake [...] or Resource Center documented in this encounter [facility] 08-30-2022 Note HNO ID: [id number] Author: RT Adriel(Edmar) Service: ? Author Type: Desk Pen Set Assembler Type: Progress Notes Filed: 08/30/2022 3:00 PM [...] DATE: August 30, 2022 TIME: 3:00 PM [facility] 08-30-2022 History of Present illness Narrative [...] TIME: 3:00 PM documented in this encounter [facility] 08-17-2022 Miscellaneous Notes Patient notified [...] Gisel Garcia RN documented in this encounter [facility] 07-20-2022 Miscellaneous Notes Patient thought [...] is calling Karo Hill MD today regarding Specialty Plant Supervisor - Other (Return call needed) Patient has been identified by name and birthdate. Requesting response back: [phone] (home) [phone] (cell) Pt called in stating that she was supposed to be scheduled for a PET Scan, Labs and OV. I see the OV and lab orders but not the PET Scan. She is saying she cannot see anything scheduled at all in her MyChart. Please return the call to discuss the PET Scan appt. 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 Gisel Garcia RN Rx sent but please notify pt increased dose from 4 mcg to the 10 mcg pack as she did not have significant improvement. To try this before scheduled follow up and can keep appointment Last prescribed 03/17/2022 when she had her annual . see My Chart message from today documented in this encounter [facility] 03-17-2022 History of Present illness Narrative Plaster Patternmaker offered: Patient declines. 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 Marychuy Joe RN documented in this encounter [facility] 02-16-2022 Miscellaneous Notes Called pt to talk about her questions she submitted via [employer] Told pt that I spoke with Dr [...] Marychuy Joe RN documented in this encounter [facility] 02-15-2022 Miscellaneous Notes February 15, 2022 PID: [id number] Aydin Renee [facility] [address] Dear Ms. Renee, We are pleased to [...] report will be kept on file at [facility] as part of your permanent medical record and are available for your continuing care. Thank you for allowing us to help in meeting your health care needs. Sincerely, Dr. Huff Interpreting Radiologist [facility] (Normal over 40) documented in this encounter [facility] 02-15-2022 History of Present illness [...] 2022 2:25 PM documented in this encounter [facility] 02-13-2022 Instructions My Borges MD - 02/13/2022 9:01 AM EDT - Jammie Stanley: Dr. Kamilla Pratt - Imvexxy - Dr. Aranda - vulvar specialist documented in this encounter [facility] 02-13-2022 History of Present illness Narrative Plaster Patternmaker offered: Patient declines. 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 Vulvar burning N94.89 CONSULT TO BANKING CONSULTANT INFECTIOUS DISEASE 2. 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 estradiol [...] 4 - Moderate documented in this encounter [facility] 02-10-2022 History of Present illness Narrative Evusheld (tixagevimab/cilgavimab) Eligibility and Patient Discussion [facility] Formulary Restriction Criteria: Outpatient adults and pediatrics 12 years and older and > 40 kg with ALL of the following: [x] COVID test scheduled: No Date: TBD, type of test:Home antigen [x] Patient has not been exposed to a SARS-COV-2 positive individual ([facility] information on COVID exposure link) [x] Patient [...] 2022 10:59 AM documented in this encounter [facility] 02-10-2022 Instructions Karo Hill MD [...] serious illness Are taking any medications (prescription, wpvh-dpn-dbksihw, vitamins, or herbal products) How will I receive EVUSHELD? EVUSHELD consists of two investigational medicines, tixagevimab and cilgavimab. You will receive 1 dose of EVUSHELD, consisting of 2 separate injections (tixagevimab and cilgavimab). EVUSHELD will be given to you by your healthcare provider as 2 intramuscular injections, given one after the other. Viruses can climate change analyst time (mutate) and develop into a slightly [...] or prevention of COVID-19 go to https://www.fda.gov/emergency-pre yppjmtvtq-trk-rkvidsyk/mcm-legal- rdhixzvdlb-ntn-dafqcy-framework/e ugndyeqa-omx-slswvtwznmxrm. It is your choice to receive or [...] to FDA MedWatch at www.fda.gov/medwatch or call 7-633-IIO-6118 or call [employer] at . Additional Information If you have questions, visit the website or call the telephone number provided below. To access the most recent EVUSHELD Fact Sheets, please scan the QR code provided below. Website Telephone number [email or web address] How can I learn more about COVID-19? Ask your healthcare provider. Visit https://www.cdc.gov/COVID19 Contact your local or state public health department. What is an Emergency Use Authorization? The [place] FDA has made EVUSHELD (tixagevimab co-packaged with cilgavimab) available under an emergency access mechanism called an Emergency Use Authorization EUA. The EUA is supported by a [place] of Health and Human Service (HHS) declaration [...] monohydrate, polysorbate 80, sucrose, water. Distributed by: [employer] [place], [place] Manufactured for: [employer] [place], [place] [employer] 2021. All rights reserved. documented in this encounter [facility] 02-10-2022 Nurse Note Additional intake questions: Has the patient had fever, nausea, vomiting, diarrhea, constipation, fatigue for > 1 week? Yes, fatigue and Provider Notified Does the patient have a decreased appetite? No Does patient want to see a Database Manager? No (yes to any of above refer patient to schedulers for dietitian appointment) ) Does patient have any new or increased numbness or tingling of extremities? No Is patient interested in fertility information? No Does patient need any prescription refills? No Does patient have an advanced directive in place? No, Patient referred to [facility] documented in this encounter [facility] 02-10-2022 History of Present illness Narrative [facility] CLINICAL NOTE Department of Hematology and Medical Oncology PATIENT NAME: Aydin Renee [facility] NO.: [id number] ATTENDING PHYSICIAN: Karo Hill MD DATE OF [...] scheduled for a follow-up visit with her budget controller next week. She decided not to proceed with receiving Evusheld after her last appointment, explaining that at the time she was feeling frustrated about being stuck with needles for so many things. After reflection she has decided now that she would like to move forward with the treatment. MEDICATIONS: Per Kanbanize. REVIEW OF SYSTEMS: As described above. ECOG [...] Lymph 1.00 - 4.00 k/uL 0.33 (L) Stone% % 14.1 Abs Stone <0.87 k/uL 0.50 Eosin% % 13.3 Abs [...] work-up is warranted when she sees her budget controller, Dr. Borges, at their upcoming appointment. I spent a total of 35 minutes on the date of the service which included preparing to see the patient, mkaj-zx-zdfv patient care, completing clinical documentation, obtaining and/or reviewing separately obtained history, performing a medically appropriate examination, counseling and educating the patient/family/caregiver, and ordering medications, tests, or procedures. Karo Hill MD cc: Sergio Landaverde MD; ; documented in this encounter [facility] 02-08-2022 History of Present illness [...] 2022 10:01 AM documented in this encounter [facility] 12-29-2021 History of Present illness Narrative Pt states she doesn't want to receive evusheld injections. Dr. Hill notified. documented in this encounter [facility] 12-28-2021 Nurse Note Patient ID [...] No Does patient want to see a Database Manager? No (yes to any of above refer patient to schedulers for dietitian appointment) ) Does patient have any new or increased numbness or tingling of extremities? No Is patient interested in fertility information? No Does patient need any prescription refills? No Does patient have an advanced directive in place? Yes, no copy found in [employer] pt to bring to Nurse next visit documented in this encounter [facility] 12-28-2021 History of Present illness Narrative Evusheld (tixagevimab/cilgavimab) Eligibility and Patient Discussion [facility] Formulary Restriction Criteria: Outpatient adults [...] 2021 11:26 AM documented in this encounter [facility] 12-28-2021 Instructions Karo Hill MD [...] serious illness Are taking any medications (prescription, sltk-bqn-rzfvgxg, vitamins, or herbal products) How will I [...] of EVUSHELD for ongoing protection. Viruses can climate change analyst time (mutate) and develop into a slightly [...] up-to-date with the latest information by visiting [email or web address] or by scanning the QR code, below: [...] or prevention of COVID-19 go to https://www.fda.gov/emergency-pre ftbhroqzb-fyn-bddsbdez/mcm-legal- uwkxzjdncj-vnq-onswnc-framework/e hdxfvkrf-jkm-fietdpiktrjrq. It is your choice to receive or [...] to FDA MedWatch at www.fda.gov/medwatch or call 7-673-MNE-1655 or call [employer] at . Additional Information If you have questions, visit the website or call the telephone number provided below. To access the most recent EVUSHELD Fact Sheets, please scan the QR code provided below. Website Telephone number [email or web address] How can I learn more about COVID-19? Ask your healthcare provider. Visit https://www.cdc.gov/COVID19 Contact your local or state public health department. What is an Emergency Use Authorization? The [place] FDA has made EVUSHELD (tixagevimab co-packaged with cilgavimab) available under an emergency access mechanism called an Emergency Use Authorization EUA. The EUA is supported by a [place] of Health and Human Service (HHS) declaration [...] be used under the EUA). Distributed by: [employer], [place], [place] Manufactured by: [employer], [address] [facility], [place] [facility] [address], [place] [facility] [employer] 2020. All rights reserved. documented in this encounter [facility] 12-28-2021 History of Present illness Narrative [facility] CLINICAL NOTE Department of Hematology and Medical Oncology PATIENT NAME: Aydin Renee CLINIC NO.: [id number] ATTENDING PHYSICIAN: Karo Hill MD DATE OF [...] guidelines for precautions going forward. MEDICATIONS: Per Kanbanize. REVIEW OF SYSTEMS: As described above. ECOG [...] which included preparing to see the patient, bkuk-id-tgsb patient care, completing clinical documentation, obtaining and/or reviewing separately obtained history, performing a medically appropriate examination, counseling and educating the patient/family/caregiver and ordering medications, tests, or procedures. Karo Hill MD cc: Sergio Landaverde MD; ; documented in this encounter [facility] 11-30-2021 History of Present illness Narrative [facility] CLINICAL NOTE Department of Hematology and Medical Oncology PATIENT NAME: Aydin Renee CLINIC NO.: [id number] ATTENDING PHYSICIAN: Karo Hill MD DATE OF [...] have a port placed now. MEDICATIONS: Per Kanbanize. REVIEW OF SYSTEMS: As described above. ECOG [...] Lymph 1.00 - 4.00 k/uL 0.40 (L) Stone% % 14.8 Abs Stone <0.87 k/uL 0.59 Eosin% % 11.5 Abs [...] which included preparing to see the patient, mzoz-jw-biho patient care, completing clinical documentation, obtaining and/or reviewing separately obtained history, performing a medically appropriate examination, counseling and educating the patient/family/caregiver and ordering medications, tests, or procedures. Karo Hill MD cc: Sergio Landaverde MD; ; documented in this encounter [facility] 11-30-2021 Nurse Note Additional intake [...] or Resource Center documented in this encounter [facility] 11-02-2021 History of Present illness Narrative [facility] CLINICAL NOTE Department of Hematology and Medical Oncology PATIENT NAME: Aydin Renee [facility] NO.: [id number] ATTENDING PHYSICIAN: Karo Hill MD DATE OF [...] days after her last treatment. MEDICATIONS: Per Kanbanize. REVIEW OF SYSTEMS: As described above. ECOG [...] Lymph 1.00 - 4.00 k/uL 0.49 (L) Stone% % 13.7 Abs Stone <0.87 k/uL 0.52 Eosin% % 3.2 Abs [...] which included preparing to see the patient, ovne-ld-nmev patient care, completing clinical documentation, obtaining and/or reviewing separately obtained history, performing a medically appropriate examination, counseling and educating the patient/family/caregiver and ordering medications, tests, or procedures. Karo Hill MD cc: Sergio Landaverde MD; ; documented in this encounter [facility] 11-02-2021 Nurse Note Additional intake questions: Has the patient had fever, nausea, vomiting, diarrhea, constipation, fatigue for > 1 week? Yes, fatigue Does the patient have a decreased appetite? No Does patient want to see a Database Manager? No (yes to any of above refer patient to schedulers for dietitian appointment) ) Does patient have any new or increased numbness or tingling of extremities? No Is patient interested in fertility information? NA Does patient need any prescription refills? No Does patient have an advanced directive in place? Yes, no copy found in [employer] will bring documented in this encounter [facility] 11-01-2021 History of Present illness [...] TIME: 12:57 PM documented in this encounter [facility] 10-05-2021 History of Present illness Narrative [facility] CLINICAL NOTE Department of Hematology and Medical Oncology PATIENT NAME: Aydin Renee [facility] NO.: [id number] ATTENDING PHYSICIAN: Karo Hill MD DATE OF [...] in the morning, both relieved with prochlorperazine. [place] sensitive and dry mucous membranes involving the mouth and tongue, lasting about 2 1/2 weeks. Her neck lymphadenopathy has resolved, and she is uncertain whether she can feel a residual abdominal mass. MEDICATIONS: Per Kanbanize. REVIEW OF SYSTEMS: As described above. ECOG [...] Lymph 1.00 - 4.00 k/uL 0.72 (L) Stone% % 15.3 Abs Stone <0.87 k/uL 0.63 Eosin% % 1.0 Abs [...] which included preparing to see the patient, oift-mf-lhxe patient care, completing clinical documentation, obtaining and/or reviewing separately obtained history, performing a medically appropriate examination, counseling and educating the patient/family/caregiver and ordering medications, tests, or procedures. Karo Hill MD cc: Sergio Landaverde MD; ; documented in this encounter [facility] 10-05-2021 Nurse Note Additional intake questions: Has the patient had fever, nausea, vomiting, diarrhea, constipation, fatigue for > 1 week? No Does the patient have a decreased appetite? No Does patient want to see a Database Manager? No (yes to any of above refer patient to schedulers for dietitian appointment) ) Does patient have any new or increased numbness or tingling of extremities? No Is patient interested in fertility information? No Does patient need any prescription refills? No Does patient have an advanced directive in place? No, Patient referred to [facility] documented in this encounter [facility] 09-07-2021 History of Present illness Narrative [facility] CLINICAL NOTE Department of Hematology and Medical Oncology PATIENT NAME: Aydin Renee [facility] NO.: [id number] ATTENDING PHYSICIAN: Karo Hill MD DATE OF [...] her abdominal mass any longer. MEDICATIONS: Per Kanbanize. REVIEW OF SYSTEMS: As described above. ECOG [...] Lymph 1.00 - 4.00 k/uL 0.93 (L) Stone% % 12.9 Abs Stone <0.87 k/uL 0.77 Eosin% % 1.0 Abs [...] which included preparing to see the patient, wynq-kt-wmsh patient care, completing clinical documentation, obtaining and/or reviewing separately obtained history, performing a medically appropriate examination, counseling and educating the patient/family/caregiver and ordering medications, tests, or procedures. Karo Hill MD cc: Sergio Landaverde MD; ; documented in this encounter [facility] 09-07-2021 Nurse Note Additional intake questions: Has the patient had fever, nausea, vomiting, diarrhea, constipation, fatigue for > 1 week? Yes, fatigue and Provider Notified Does the patient have a decreased appetite? No Does patient want to see a Database Manager? No (yes to any of above refer patient to schedulers for dietitian appointment) ) Does patient have any new or increased numbness or tingling of extremities? No Is patient interested in fertility information? No Does patient need any prescription refills? No Does patient have an advanced directive in place? 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 Encounter for antineoplastic immunotherapy [facility] [place] [facility]* Diagnosis 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 Encounter for antineoplastic chemotherapy [facility] [place] [facility]* Diagnosis 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 [facility] [place] [facility]* Diagnosis 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 Encounter for antineoplastic chemotherapy [facility] [place] [facility]* Diagnosis 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 [facility] [place] [facility] Diagnosis 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) [facility] [place] [facility] Diagnosis 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 [facility] [place] [facility] Diagnosis 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 Encounter for antineoplastic chemotherapy [facility] [place] [facility]* Diagnosis 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 Encounter for antineoplastic chemotherapy [facility] [place] [facility] Diagnosis 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) [facility] [place] [facility]* Diagnosis 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 [facility] [place] [facility] Diagnosis 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) [facility] [place] [facility] Diagnosis Encounter for prophylactic measures, unspecified- Primary [facility] [place] [facility] Diagnosis 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 Encounter for prophylactic measures, unspecified [facility] [place] [facility] Diagnosis 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 Encounter for antineoplastic chemotherapy Encounter for antineoplastic immunotherapy [facility] [place] [facility] Diagnosis 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 Encounter for prophylactic measures, unspecified Encounter for antineoplastic chemotherapy [facility] [place] [facility]* Diagnosis 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) [facility] [place] [facility] Diagnosis 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 Encounter for prophylactic measures, unspecified [facility] [place] [facility]* Diagnosis 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 [facility] [place] [facility]* Diagnosis Vulvar burning- Primary Unspecified symptom associated with female genital organs Vulvar atrophy Atrophy of vulva Vaginal atrophy Postmenopausal atrophic vaginitis Superficial dyspareunia Cyst of ovary, unspecified laterality Abnormal mammogram Abnormal mammogram, unspecified Encounter for screening mammogram for malignant neoplasm of breast Other screening mammogram [facility] [place] [facility]* Diagnosis Encounter for screening mammogram for malignant neoplasm of breast Other screening mammogram [facility] [place] [facility]* Diagnosis Encounter for gynecological examination (general) (routine) without abnormal findings- Primary Encounter for screening mammogram for breast cancer Vulvar atrophy Atrophy of vulva Vaginal atrophy Postmenopausal atrophic vaginitis Dyspareunia in female [facility] [place] [facility]* Diagnosis Vulvar atrophy Atrophy of vulva Vaginal atrophy Postmenopausal atrophic vaginitis Dyspareunia in female [facility] [place] [facility]* Diagnosis Vulvar atrophy- Primary Atrophy of vulva Vaginal atrophy Postmenopausal atrophic vaginitis Superficial dyspareunia [facility] [place] [facility]* Diagnosis 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) documented in this encounter [facility] for referral (narrative)* Diagnostic Procedure Only (Routine) - Pending Review Specialty Diagnoses / Procedures Referred By Chencho goodwin Referred To Contact [facility] Diagnoses Abnormal mammogram Encounter for screening mammogram for malignant neoplasm of breast Procedures BENJAMIN DIAGNOSTIC BILAT DIAGNOSTIC MAMMOGRAPHY COMPUTER-AIDED DETCJ BI My Borges MD [address] [place] [address] [facility] [address] [place] [address] Referral ID Status Reason Start Date Expiration Date Visits Requested Visits Authorized [id number] Pending Review Auto-Generat ed Referral 02/13/2022 03/15/2023 1 1 * Consult, Test, Treat (Routine) - Authorized Specialty Diagnoses / Procedures Referred By Chencho goodwin Referred To Contact Diagnoses Vulvar burning Procedures CONSULT TO BANKING CONSULTANT INFECTIOUS DISEASE OFFICE/OUTPATIENT [facility] 60-74 MINUTES My Borges MD [address] [place] [address] Indira Aranda MD [address] [address] Referral ID Status Reason Start Date Expiration Date Visits Requested Visits Authorized [id number] Authorized PCP Requested Referral Auto-Generate d Referral 02/13/2022 02/13/2023 1 1 * Diagnostic Procedure Only (Routine) - Authorized Specialty Diagnoses / Procedures Referred By Chencho goodwin Referred To Contact [facility] Diagnoses Cyst of ovary, unspecified laterality Procedures PELVIC US [facility] US PELVIC NONOBSTETRIC REAL-TIME IMAGE COMPLETE My Borges MD [address] [place] [address] [facility] [address] [place] [address] Referral ID Status Reason Start Date Expiration Date Visits Requested Visits Authorized [id number] Authorized Auto-Generat ed Referral 02/13/2022 02/13/2023 1 1 [facility] for referral (narrative)* Diagnostic Procedure Only (Routine) - Closed Specialty Diagnoses / Procedures Referred By Chencho goodwin Referred To Contact [facility] Diagnoses Encounter for screening mammogram for malignant neoplasm of breast Procedures BENJAMIN SCREENING SCREENING MAMMOGRAPHY BI 2-VIEW BREAST INC My Frankel MD [address] [place] [address] [facility] [address] [place] [address] Referral ID Status Reason Start Date Expiration Date V isits Requested Visits Authorized [id number] Closed Auto-Generate d Referral 02/15/2022 03/16/2023 1 1 [facility] for referral (narrative)* Diagnostic Procedure Only (Routine) - Pending Review Specialty Diagnoses / Procedures Referred By Chencho goodwin Referred To Contact [facility] Diagnoses Encounter for screening mammogram for breast cancer Procedures BENJAMIN SCREENING SCREENING MAMMOGRAPHY BI 2-VIEW BREAST INC My Frankel MD [address] [place] [address] Br Imaging [address] [place] [address] Referral ID Status Reason Start Date Expiration Date Visits Requested Visits Authorized [id number] Pending Review Auto-Generat ed Referral 03/17/2022 04/16/2023 1 1 [facility] for visit Narrative* Diagnostic Procedure Only (Routine) - Closed Specialty Diagnoses / Procedures Referred By Chencho goodwin Referred To Contact BR IMAGING Diagnoses Encounter for screening mammogram for malignant neoplasm of breast Procedures BENJAMIN SCREENING SCREENING MAMMOGRAPHY BI 2-VIEW BREAST INC My Frankel MD [address] [place] [address] Br Imaging [address] [place] [address] Referral ID Status Reason Start Date Expiration Date V isits Requested Visits Authorized [id number] Closed Auto-Generate d Referral 02/15/2022 03/16/2023 1 1 [facility] Summary Purpose Family History No [...] a maximum of 400 mg/hr, Medication Substitution: [facility] preferred product has been replaced [...] COMPUTED TOMOGRAPHY THORAX W/CONTRAST Karo Hill MD [address] [place], [place] [id number] Ct Imaging Referral ID Status Reason Start Date Expiration Date V isits Requested Visits Authorized [id number] Closed Auto-Generate d Referral 10/06/2021 11/04/2021 2 2 Specialty Diagnoses / Procedures Referred By Contac t Referred To Contact CT IMAGING Diagnoses 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) Procedures CT ABD/PEL W IVCON CT ABD & PELVIS W/CONTRAST Karo Hill MD [address] [place] [address] Imaging Referral ID Status Reason Start Date Expiration Date V isits Requested Visits Authorized [id number] Closed Auto-Generate d Referral 10/06/2021 11/04/2021 1 1 Referral ID Status Reason Start Date Expiration Date Visits Requested Visits Authorized [id number] Pending Review Auto-Generat ed Referral 01/30/2022 12/30/2022 1 1 Referral ID Status Reason Start Date Expiration Date Visits Requested Visits Authorized [id number] Pending Review Auto-Generat ed Referral 01/30/2022 12/30/2022 1 1 Specialty Diagnoses / Procedures Referred By Contac t Referred To Contact CT IMAGING Diagnoses 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) Procedures CT NECK SOFT TISSUE W IVCON CT SOFT TISSUE NECK W/CONTRAST MATERIAL Karo Hill MD [address] [place] [address] Ct Imaging Referral ID Status Reason Start Date Expiration Date Visits Requested Visits Authorized [id number] Pending Review Auto-Generat ed Referral 01/30/2022 12/30/2022 1 1 Referral ID Status Reason Start Date Expiration Date V isits Requested Visits Authorized [id number] Closed Auto-Generate d Referral 01/19/2022 02/17/2022 1 1 Referral ID Status Reason Start Date Expiration Date V isits Requested Visits Authorized [id number] Closed Auto-Generate d Referral 01/19/2022 02/17/2022 1 1 Referral ID Status Reason Start Date Expiration Date V isits Requested Visits Authorized [id number] Closed Auto-Generate d Referral 01/19/2022 02/17/2022 1 1 Specialty Diagnoses / Procedures Referred By Contac t Referred To Contact Diagnoses Encounter for prophylactic measures, unspecified Procedures COVID TREATMENT REFERRAL COVID TREATMENT REFERRAL Karo Hill MD [address] [place], [place] [id number] Referral ID Status Reason Start Date Expiration Date Visits Requested Visits Authorized [id number] Pending Review Auto-Generat ed Referral 02/10/2022 02/10/2023 1 1 Specialty Diagnoses / Procedures Referred By Contac t Referred To Contact CT IMAGING Diagnoses 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) Procedures CT CHEST W IVCON DIAGNOSTIC COMPUTED TOMOGRAPHY THORAX W/CONTRAST Karo Hill MD [address] [place] [address] [address] [place] [address] Referral ID Status Reason Start Date Expiration Date V isits Requested Visits Authorized [id number] Closed Auto-Generate d Referral 08/24/2022 06/25/2023 2 2 Specialty Diagnoses / Procedures Referred By Chencho goodwin Referred To Contact CT IMAGING Diagnoses 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 DATE CREATED AUTHOR AUTHOR'S ORGANIZ ATION 08/09/2021 [facility] DATE CREATED AUTHOR AUTHOR'S ORGANIZ ATION 07/05/2023 [facility] Source Comments (unrecognize d section and content) In the event this informatio n is protected by the Federal Confidentiality of Alcohol and Drug Abuse Patient Records regulations: The Federal rules restrict any use of the information to criminally investigate or prosecute any alcohol or drug abuse patient.[facility] the event this information is protected by the Federal Confidentiality of Alcohol and Drug Abuse Patient Records regulations: The Federal rules restrict any use of the information to criminally investigate or prosecute any alcohol or drug abuse patient.[facility] Center[facility] the event this information is protected by the Federal Confidentiality of Alcohol and Drug Abuse Patient Records regulations: The Federal rules restrict any use of the information to criminally investigate or prosecute any alcohol or drug abuse patient.[facility] the event this information is protected by the Federal Confidentiality of Alcohol and Drug Abuse Patient Records regulations: The Federal rules restrict any use of the information to criminally investigate or prosecute any alcohol or drug abuse patient.[facility] Center[facility] the event this information is protected by the Federal Confidentiality of Alcohol and Drug Abuse Patient Records regulations: The Federal rules restrict any use of the information to criminally investigate or prosecute any alcohol or drug abuse patient.[facility] CenterIn the event this information is protected by the Federal Confidentiality of Alcohol and Drug Abuse Patient Records regulations: The Federal rules restrict any use of the information to criminally investigate or prosecute any alcohol or drug abuse patient.[facility] CenterIn the event this information is protected by the Federal Confidentiality of Alcohol and Drug Abuse Patient Records regulations: The Federal rules restrict any use of the information to criminally investigate or prosecute any alcohol or drug abuse patient.[facility] CenterIn the event this information is protected by the Federal Confidentiality of Alcohol and Drug Abuse Patient Records regulations: The Federal rules restrict any use of the information to criminally investigate or prosecute any alcohol or drug abuse patient.[facility] Center[facility] the event this information is protected by the Federal Confidentiality of Alcohol and Drug Abuse Patient Records regulations: The Federal rules restrict any use of the information to criminally investigate or prosecute any alcohol or drug abuse patient.[facility] Center[facility] the event this information is protected by the Federal Confidentiality of Alcohol and Drug Abuse Patient Records regulations: The Federal rules restrict any use of the information to criminally investigate or prosecute any alcohol or drug abuse patient.[facility] CenterIn the event this information is protected by the Federal Confidentiality of Alcohol and Drug Abuse Patient Records regulations: The Federal rules restrict any use of the information to criminally investigate or prosecute any alcohol or drug abuse patient.[facility] Center[facility] the event this information is protected by the Federal Confidentiality of Alcohol and Drug Abuse Patient Records regulations: The Federal rules restrict any use of the information to criminally investigate or prosecute any alcohol or drug abuse patient.[facility] CenterIn the event this information is protected by the Federal Confidentiality of Alcohol and Drug Abuse Patient Records regulations: The Federal rules restrict any use of the information to criminally investigate or prosecute any alcohol or drug abuse patient.[facility] CenterIn the event this information is protected by the Federal Confidentiality of Alcohol and Drug Abuse Patient Records regulations: The Federal rules restrict any use of the information to criminally investigate or prosecute any alcohol or drug abuse patient.[facility] CenterIn the event this information is protected by the Federal Confidentiality of Alcohol and Drug Abuse Patient Records regulations: The Federal rules restrict any use of the information to criminally investigate or prosecute any alcohol or drug abuse patient.[facility] CenterIn the event this information is protected by the Federal Confidentiality of Alcohol and Drug Abuse Patient Records regulations: The Federal rules restrict any use of the information to criminally investigate or prosecute any alcohol or drug abuse patient.[facility] CenterIn the event this information is protected by the Federal Confidentiality of Alcohol and Drug Abuse Patient Records regulations: The Federal rules restrict any use of the information to criminally investigate or prosecute any alcohol or drug abuse patient.[facility] CenterIn the event this information is protected by the Federal Confidentiality of Alcohol and Drug Abuse Patient Records regulations: The Federal rules restrict any use of the information to criminally investigate or prosecute any alcohol or drug abuse patient.[facility] CenterIn the event this information is protected by the Federal Confidentiality of Alcohol and Drug Abuse Patient Records regulations: The Federal rules restrict any use of the information to criminally investigate or prosecute any alcohol or drug abuse patient.[facility] CenterIn the event this information is protected by the Federal Confidentiality of Alcohol and Drug Abuse Patient Records regulations: The Federal rules restrict any use of the information to criminally investigate or prosecute any alcohol or drug abuse patient.[facility] CenterIn the event this information is protected by the Federal Confidentiality of Alcohol and Drug Abuse Patient Records regulations: The Federal rules restrict any use of the information to criminally investigate or prosecute any alcohol or drug abuse patient.[facility] CenterIn the event this information is protected by the Federal Confidentiality of Alcohol and Drug Abuse Patient Records regulations: The Federal rules restrict any use of the information to criminally investigate or prosecute any alcohol or drug abuse patient.[facility] CenterIn the event this information is protected by the Federal Confidentiality of Alcohol and Drug Abuse Patient Records regulations: The Federal rules restrict any use of the information to criminally investigate or prosecute any alcohol or drug abuse patient.[facility] CenterIn the event this information is protected by the Federal Confidentiality of Alcohol and Drug Abuse Patient Records regulations: The Federal rules restrict any use of the information to criminally investigate or prosecute any alcohol or drug abuse patient.[facility] CenterIn the event this information is protected by the Federal Confidentiality of Alcohol and Drug Abuse Patient Records regulations: The Federal rules restrict any use of the information to criminally investigate or prosecute any alcohol or drug abuse patient.[facility] CenterIn the event this information is protected by the Federal Confidentiality of Alcohol and Drug Abuse Patient Records regulations: The Federal rules restrict any use of the information to criminally investigate or prosecute any alcohol or drug abuse patient.[facility] CenterIn the event this information is protected by the Federal Confidentiality of Alcohol and Drug Abuse Patient Records regulations: The Federal rules restrict any use of the information to criminally investigate or prosecute any alcohol or drug abuse patient.[facility] CenterIn the event this information is protected by the Federal Confidentiality of Alcohol and Drug Abuse Patient Records regulations: The Federal rules restrict any use of the information to criminally investigate or prosecute any alcohol or drug abuse patient.[facility] CenterIn the event this information is protected by the Federal Confidentiality of Alcohol and Drug Abuse Patient Records regulations: The Federal rules restrict any use of the information to criminally investigate or prosecute any alcohol or drug abuse patient.[facility] CenterIn the event this information is protected by the Federal Confidentiality of Alcohol and Drug Abuse Patient Records regulations: The Federal rules restrict any use of the information to criminally investigate or prosecute any alcohol or drug abuse patient.[facility] CenterIn the event this information is protected by the Federal Confidentiality of Alcohol and Drug Abuse Patient Records regulations: The Federal rules restrict any use of the information to criminally investigate or prosecute any alcohol or drug abuse patient.[facility] CenterIn the event this information is protected by the Federal Confidentiality of Alcohol and Drug Abuse Patient Records regulations: The Federal rules restrict any use of the information to criminally investigate or prosecute any alcohol or drug abuse patient.[facility] CenterIn the event this information is protected by the Federal Confidentiality of Alcohol and Drug Abuse Patient Records regulations: The Federal rules restrict any use of the information to criminally investigate or prosecute any alcohol or drug abuse patient.[facility] CenterIn the event this information is protected by the Federal Confidentiality of Alcohol and Drug Abuse Patient Records regulations: The Federal rules restrict any use of the information to criminally investigate or prosecute any alcohol or drug abuse patient.[facility] CenterIn the event this information is protected by the Federal Confidentiality of Alcohol and Drug Abuse Patient Records regulations: The Federal rules restrict any use of the information to criminally investigate or prosecute any alcohol or drug abuse patient.[facility] CenterIn the event this information is protected by the Federal Confidentiality of Alcohol and Drug Abuse Patient Records regulations: The Federal rules restrict any use of the information to criminally investigate or prosecute any alcohol or drug abuse patient.[facility] CenterIn the event this information is protected by the Federal Confidentiality of Alcohol and Drug Abuse Patient Records regulations: The Federal rules restrict any use of the information to criminally investigate or prosecute any alcohol or drug abuse patient.[facility] Reason for Visit (unrecogniz ed section and content) Specialty Diagnoses / Procedures Referred By Contac t Referred To Contact Diagnoses 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) Procedures INJECTION, RITUXIMAB, 10 MG INJECTION, RITUXIMAB 10 MG AND HYALURONIDASE INJ., BELRAPZO / BENDAMUSTINE PALONOSETRON [place] Karo Hill [place] [id number] [place] [address] [facility] [address] [place] [address] Referral ID Status Reason Start Date Expiration Date V isits Requested Visits Authorized [id number] Authorized 08/02/2021 01/19/2022 12 [address] Specialty Diagnoses / Procedures Referred By Contac t Referred To Contact CT IMAGING Diagnoses 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) Procedures CT CHEST W IVCON DIAGNOSTIC COMPUTED TOMOGRAPHY THORAX W/CONTRAST Karo Hill MD [address] [place] [address] Imaging Referral ID Status Reason Start Date Expiration Date V isits Requested Visits Authorized [id number] Closed Auto-Generate d Referral 10/06/2021 11/04/2021 2 2 Reason Comments Established Patient Reason Comments Treatment Planning Evusheld Referral ID Status Reason Start Date Expiration Date V isits Requested Visits Authorized [id number] Closed Auto-Generate d Referral 01/19/2022 02/17/2022 [address] Reason Comments Treatment Planning Evusheld Reason Comments Follow Up Pain with intercours e Reason Comments Patient Question Care Coordination Reason Comments Well Woman Reason Onset Date Comments Refill Request 05/15/2022 Reason Comments vaginal pain 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 Reason Comments Medication Problem Specialty Diagnoses / Procedures Referred By Contac t Referred To Contact CT IMAGING Diagnoses 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) Procedures CT CHEST W IVCON DIAGNOSTIC COMPUTED TOMOGRAPHY THORAX W/CONTRAST Ahsan, [place] [address] [place] [address] [place] [address] Referral ID Status Reason Start Date Expiration Date V isits Requested Visits Authorized [id number] Closed Auto-Generate d Referral 08/24/2022 06/25/2023 2 2 Care Teams (unrecognized sec tion and content) Aluminum Siding Mechanic Relationship Specialty Start Date End Date Sergio Landaverde MD [address] [place] [address] PCP - General Family Practice 07/25/21 Aluminum Siding Mechanic Relationship Specialty Start Date End Date Sergio Landaverde MD [address] [place] [address] PCP - General Family Practice 07/25/21 Aluminum Siding Mechanic Relationship Specialty Start Date End Date Sergio Landaverde MD [address] [place] [address] PCP - General Family Practice 07/25/21 Aluminum Siding Mechanic Relationship Specialty Start Date End Date Sergio Landaverde MD [address] [place] [address] PCP - General Family Practice 07/25/21 Aluminum Siding Mechanic Relationship Specialty Start Date End Date Sergio Landaverde MD [address] [place] [address] PCP - General Family Practice 07/25/21 Aluminum Siding Mechanic Relationship Specialty Start Date End Date Sergio Landaverde MD [address] [place] [address] PCP - General Family Practice 07/25/21 Aluminum Siding Mechanic Relationship Specialty Start Date End Date Sergio Landaverde MD [address] [place] [address] PCP - General Family Practice 07/25/21 Aluminum Siding Mechanic Relationship Specialty Start Date End Date Sergio Landaverde MD [address] [place] [address] PCP - General Family Practice 07/25/21 Aluminum Siding Mechanic Relationship Specialty Start Date End Date Sergio Landaverde MD [address] [place] [address] PCP - General Family Practice 07/25/21 Aluminum Siding Mechanic Relationship Specialty Start Date End Date Sergio Landaverde MD [address] [place] [address] PCP - General Family Practice 07/25/21 Aluminum Siding Mechanic Relationship Specialty Start Date End Date Sergio Landaverde MD [address] [place] [address] PCP - General Family Practice 07/25/21 Aluminum Siding Mechanic Relationship Specialty Start Date End Date Sergio Landaverde MD [address] [place] [address] PCP - General Family Practice 07/25/21 Aluminum Siding Mechanic Relationship Specialty Start Date End Date Sergio Landaverde MD [address] [place] [address] PCP - General Family Practice 07/25/21 Aluminum Siding Mechanic Relationship Specialty Start Date End Date Sergio Landaverde MD [address] [place] [address] PCP - General Family Practice 07/25/21 Aluminum Siding Mechanic Relationship Specialty Start Date End Date Sergio Landaverde MD [address] [place] [address] PCP - General Family Practice 07/25/21 Aluminum Siding Mechanic Relationship Specialty Start Date End Date Sergio Landaverde MD [address] [place] [address] PCP - General Family Practice 07/25/21 Aluminum Siding Mechanic Relationship Specialty Start Date End Date Sergio Landaverde MD [address] [place] [address] PCP - General Family Practice 07/25/21 Aluminum Siding Mechanic Relationship Specialty Start Date End Date Sergio Landaverde MD [address] [place] [address] PCP - General Family Practice 07/25/21 Aluminum Siding Mechanic Relationship Specialty Start Date End Date Sergio Landaverde MD [address] [place] [address] PCP - General Family Practice 07/25/21 Aluminum Siding Mechanic Relationship Specialty Start Date End Date Sergio Landaverde MD [address] [place] [address] PCP - General Family Practice 07/25/21 Aluminum Siding Mechanic Relationship Specialty Start Date End Date Sergio Landaverde MD [address] [place] [address] PCP - General Family Practice 07/25/21 Aluminum Siding Mechanic Relationship Specialty Start Date End Date Sergio Landaverde MD [address] [place] [address] PCP - General Family Medicine 07/25/21 Aluminum Siding Mechanic Relationship Specialty Start Date End Date Sergio Landaverde MD [address] [place] [address] PCP - General Family Medicine 07/25/21 Aluminum Siding Mechanic Relationship Specialty Start Date End Date Sergio Landaverde MD [address] [place] [address] PCP - General Family Medicine 07/25/21 Aluminum Siding Mechanic Relationship Specialty Start Date End Date Sergio Landaverde MD [address] [place] [address] PCP - General Family Medicine 07/25/21 Aluminum Siding Mechanic Relationship Specialty Start Date End Date Sergio Landaverde MD [address] [place] [address] PCP - General Family Medicine 07/25/21 Aluminum Siding Mechanic Relationship Specialty Start Date End Date Sergio Landaverde MD [address] [facility] [address] [place], [place] [address] PCP - General Family Medicine 07/25/21 Aluminum Siding Mechanic Relationship Specialty Start Date End Date Sergio Landaverde MD [address] [facility] [address] [place], [place] [address] PCP - General Family Medicine 07/25/21 Aluminum Siding Mechanic Relationship Specialty Start Date End Date Sergio Landaverde MD [address] [facility] [address] [place], [place] [address] PCP - General Family Medicine 07/25/21 Aluminum Siding Mechanic Relationship Specialty Start Date End Date Sergio Landaverde MD [address] [facility] [address] [place], [place] [address] PCP - General Family Medicine 07/25/21 FOR [...] BE BASED ON THE PRIMARY CLINICAL RECORDS. [facility] [employer] [facility]. provides no warranty or guarantee of the accuracy or completeness of information in this document.
[2023-08-29 10:01] LABS: Ionized Calcium 5.06 mg/dL (4.36-5.20)
[2023-08-29 10:51] LABS: Cholesterol 152 mg/dL (200); High Density Lipoprotein 69 mg/dL; Triglycerides 85 mg/dL; Very Low Density Lipoprotein 17 mg/dL (5-40)
== END | disposition home or self-care (01) ==
PROVIDERS: PCP Family Medicine; Referring Provider Family Medicine; Visit Provider Family Medicine
DX: Z13.220 Encounter for screening for lipoid disorders (principal); E55.9 Vitamin D deficiency, unspecified
CPT/HCPCS: 36415; 80061; 82330

== ENCOUNTER 2023-11-23 08:17 | Outpatient (CLI) | payer BC, SELFPAY ==
[2023-11-23 08:40] VITALS: BP 131/78; PULSE 63; RESP 16; TEMP 36.3; O2SAT 97
[2023-11-23] MEDS: 0.9% NaCl Peripheral Flush Adult/Peds IV (08:44)
[2023-11-23] MEDS: Zoledronic Acid 5 MG 100 ML 300 MG IV (08:52)
[2023-11-23 09:17] VITALS: BP 130/73; PULSE 62
== END 2023-11-23 23:59 | disposition home or self-care (01) ==
LOC: MEDOUTP 08:18
PROVIDERS: PCP Family Medicine; Referring Provider Family Medicine; Visit Provider Family Medicine
DX: M81.0 Age-related osteoporosis without current pathological fracture (principal)
CPT/HCPCS: 96365; A4216; J3489

== ENCOUNTER → 2024-04-16 | Outpatient (CLI) | payer BC, SELFPAY | END | disposition home or self-care (01) | LOC: MFPLAB 10:56 | PROVIDERS: PCP Family Medicine; Referring Provider Family Medicine; Visit Provider Family Medicine | DX: N39.0 Urinary tract infection, site not specified (principal) | CPT/HCPCS: 87086; 87088; 87186 ==

== ENCOUNTER → 2024-05-30 | Outpatient (CLI) | payer BC, SELFPAY ==
--- NOTE | 2024-05-30 15:26 | US_ITS ---
INDICATION: new CKD and L hydronephrosis EXAMINATION: Ultrasound US Kidney(s) complete (eg, kidneys and bladder) COMPARISON: None. FINDINGS: 76 grayscale ultrasound images of the bilateral kidneys and urinary bladder. KIDNEYS: Bilateral kidneys without shadowing nephrolith. Mild left hydronephrosis. No right hydronephrosis. No obvious renal parenchymal lesion. URINARY BLADDER:?Adequately distended urinary bladder is without obvious abnormality, 102 cc volume. Bilateral ureteral jets are identified. No significant free fluid. US/Kidney and Bladder IMPRESSION: Mild left hydronephrosis. Electronically Signed: Rodrigo Monson MD at 0:06 EST ,
== END | disposition home or self-care (01) ==
LOC: US 15:24
PROVIDERS: PCP Family Medicine; Referring Provider Family Medicine; Visit Provider Family Medicine
DX: N13.30 Unspecified hydronephrosis (principal)
CPT/HCPCS: 76770

== ENCOUNTER → 2024-07-07 | Outpatient (CLI) | payer SELFPAY ==
[2024-07-10 22:07] LABS: HPV APTIMA, High Risk Negative (Negative)
== END | disposition home or self-care (01) ==
PROVIDERS: Referring Provider Nurse Practitioner Family; Visit Provider Nurse Practitioner Family
DX: Z01.419 Encounter for gynecological examination (general) (routine) without abnormal findings (principal)
CPT/HCPCS: 87624; 88175; G0145

== ENCOUNTER → 2024-07-14 | Outpatient (CLI) | payer BC, SELFPAY ==
--- NOTE | 2024-07-14 16:51 | US_ITS ---
INDICATION: post menopausal bleeding EXAMINATION: Ultrasound US Pelvis Non OB Complete With Transvaginal Imaging TECHNIQUE: Transabdominal and transvaginal pelvic ultrasound was performed. Grayscale, spectral waveform, and color flow Doppler evaluation of the adnexa. COMPARISON: Renal ultrasound dated May 30, 2024 FINDINGS: UTERUS: The uterus measures 5.6 x 2.3 x 3.4 cm. There is a well-circumscribed intramural hypoechoic 1.0 x 0.8 x 1.1 cm focus within the anterior uterine fundus. The endometrial stripe measures 4.0 mm in AP diameter which is within normal limits. There is fluid within the endometrial cavity. There is a 0.3 x 0.2 x 0.4 cm round echogenic focus within the endometrial cavity that demonstrates no internal vascularity. RIGHT OVARY: 1.4 x 0.9 x 1.6 cm. Non-enlarged, normal echogenicity. There is normal arterial inflow and venous outflow present in the right ovary. LEFT OVARY: 1.2 x 1.0 x 1.2 cm. Non-enlarged, normal echogenicity. There is normal arterial inflow and venous outflow present in the left ovary. FREE FLUID: None. The urinary bladder volume measures 211 cc. No gross abnormalities visualized. US/Pelvic w/ Transvaginal IMPRESSION: 0.3 x 0.2 x 0.4 cm echogenic focus within the endometrial cavity, may reflect a submucosal fibroid or polyp. 1.0 x 0.8 x 1.1 cm intramural fibroid. Electronically Signed: Sandra Whalen MD at 10:28 EST ,
== END | disposition home or self-care (01) ==
LOC: US 16:48
PROVIDERS: PCP Family Medicine; Referring Provider Nurse Practitioner Family; Visit Provider Nurse Practitioner Family
DX: N95.0 Postmenopausal bleeding (principal)
CPT/HCPCS: 76830; 76856

== ENCOUNTER → 2024-07-28 | Outpatient (CLI) | payer BC, SELFPAY ==
--- NOTE | 2024-07-28 11:56 | BI_ITS ---
PROCEDURE: SCRN MAMM (CAD)W/AMBER BILAT REASON FOR EXAM: F, Age 59 y/o, presents for annual screening mammogram. No family history of breast cancer. TECHNIQUE: Bilateral screening digital breast tomosynthesis with 2D and 3D images. Computer aided detection. COMPARISON: 05/21/2023 FINDINGS: The breasts are extremely dense which lowers the sensitivity of mammography. The mammogram demonstrates that the patient has dense breasts. Supplemental screening with whole breast ultrasound may be considered for further evaluation. No suspicious masses, areas of developing architectural distortion, or suspicious calcifications. BI/SCRN MAMM (CAD)W/AMBER BILAT IMPRESSION: There is no evidence of malignancy in either breast. . BI-RADS 1: NEGATIVE. RECOMMEND ANNUAL MAMMOGRAPHIC SCREENING. Follow-up code: Routine Follow-up The patient will be notified of the results by letter. Reading Location: [id number]
== END | disposition home or self-care (01) ==
LOC: OPBI 11:56
PROVIDERS: PCP Family Medicine; Referring Provider Nurse Practitioner Family; Visit Provider Nurse Practitioner Family
DX: Z12.31 Encounter for screening mammogram for malignant neoplasm of breast (principal)
CPT/HCPCS: 77063; 77067

== ENCOUNTER 2024-08-26 11:25 | Day surgery (SDC) | payer BC, SELFPAY ==
[2024-08-15 15:42] LABS: Hematocrit 39.1 % (37-47); Hemoglobin 13.1 g/dL (12.0-15.0); Mean Corp Hgb Conc 33.5 g/dL (32-36); Mean Corpuscular Hgb 34.1 pg (27.0-32.0); Mean Corpuscular Volume 101.8 fL (81-99); Mean Platelet Vol. 10.2 fl (6.2-12.0); Platelet Count 300 K/mm3 (150-450); RBC Distribution Width CV 11.9 % (11.6-14.6); RBC Distribution Width SD 44.9 fl (35.1-43.9); Red Blood Count 3.84 M/mm3 (4.2-5.4); White Blood Count 5.6 K/mm3 (4.4-11.0)
[2024-08-26 11:46] VITALS: BP 133/81; PULSE 73; RESP 16; TEMP 37; O2SAT 100; BMI 21.9
--- NOTE | 2024-08-26 12:32 | PCM.PRE.AN2 ---
ASA Classification* ASA Classification ASA Classification: 2 Assessment & Plan Anesthesia* Anesthesia Assessment Anesthesia Assessment: Discussed sedation and/or anesthesia options, risks, benefits, and alternatives with patient/parents/legal guardian/POA. Questions invited. The patient/parents/legal guardian/POA seems to understand and agrees to proceed with anesthesia plan. Reviewed the physical assessment, medical history, allergy history and patient home medications list prior to surgery/procedure/anesthetic and documented any changes. Performed airway and anesthesia risk assessments. Anesthesia Type Anesthesia Type: MAC History Source History Obtained from:: Patient and Chart Anesthesia Focused Assessment* Temperature: 98.6 F Pulse Rate: 73 Blood Pressure: 133/81 Respiratory Rate: 16 Pulse Ox: 100 Oxygen Delivery Method: Room Air Airway Assessment Mouth opens: >3 cm Mallampati Score: I Teeth Condition: Intact Neck Range of motion (ROM): Full ROM Focused Labs Anesthesia Preop lab: CBC WBC 5.6 K/mm3 (4.4-11.0) 08/15/24 14:32 08/15/24 RBC 3.84 M/mm3 (4.2-5.4) L 08/15/24 14:32 08/15/24 Hgb 13.1 g/dL (12.0-15.0) 08/15/24 14:32 08/15/24 Hct 39.1 % (37-47) 08/15/24 14:32 08/15/24 Plt Count 300 K/mm3 (150-450) 08/15/24 14:32 08/15/24 CHEMISTRY Potassium 3.5 mmol/L (3.5-5.1) 08/24/23 13:43 08/24/23 Sodium 140 mmol/L (136-145) 08/24/23 13:43 08/24/23 Magnesium 2.3 mg/dL (1.6-2.6) 08/24/23 13:43 08/24/23 BUN 13 mg/dL (7-18) 08/24/23 13:43 08/24/23 Creatinine 0.81 mg/dL (0.55-1.02) 08/24/23 13:43 08/24/23 Glucose 93 mg/dL (74-106) 08/24/23 13:43 08/24/23 TSH 1.57 uIU/mL (0.358-3.74) 08/24/23 13:43 08/24/23 COAG PT 11.9 SECONDS (11.7-14.9) 07/13/21 12:11 07/13/21 Pre-Assessment Diagnosis/Proposed Procedure Planned Operative Procedure(s): D&C POLYPECTOMY Anesthesia History 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 When Was Last Pacemaker Check QUESTION #4 FULL TEXT: You/Your Family Experience fever (hyperthermia) with Anesthesia Any additional information?: No Last Oral Intake Last Oral intake: Last Oral Intake NPO since 08:30 08/26/24 11:46 Meds taken in AM with sips of Yes 08/26/24 11:46 water? Meds patient instructed to Cymbalta 08/26/24 11:46 take am of surgery Any additional information?: No PONV PONV - polishing machine operator: PONV - polishing machine operator Female Yes 08/13/24 11:45 HX of Motion Sickness No 08/13/24 11:45 HX of N/V After Surgery No 08/13/24 11:45 Non-Smoker Yes 08/13/24 11:45 Duration of Surgery greater No 08/13/24 11:45 than 60 minutes Number of Risk Factors 2 08/13/24 11:45 PONV Score Moderate Risk 08/13/24 11:45 Any additional information?: No Height & Weight Height & Weight: Anesthesia: Height & Weight Height 5 ft 3 in 08/26/24 11:46 Weight: 56 kg 08/26/24 11:46 Body Mass Index (BMI) 21.9 08/26/24 11:46 Respiratory Assessment Respiratory Assessment - polishing machine operator: Respiratory Tract Infection Hx - polishing machine operator Hx Respiratory Tract Infection No 08/13/24 11:45 Any additional information?: No STOP Sleep Apnea STOP Sleep Apnea - polishing machine operator: STOP Sleep Apnea - polishing machine operator Hx Hypertension No 08/13/24 11:45 Hx Sleep Apnea No 08/13/24 11:45 CPAP No 07/07/24 10:47 BIPAP No 07/07/24 10:47 Do you snore loudly (louder No 08/13/24 11:45 than talking or can be heard Do you often feel tired/ No 08/13/24 11:45 fatigued/ sleepy during daytime? Has anyone observed you stop No 08/13/24 11:45 breathing during sleep? STOP Results Negative 08/13/24 11:45 QUESTION #5 FULL TEXT : Do you snore loudly (louder than talking or can be heard through closed doors)? 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 Specify any problems Hx of Preganancy in last 3 No 08/13/24 11:45 Months Nurse Filling Out Transfusion DSCHRIBER 08/13/24 11:45 & Questions: Date: 08/13/24 08/13/24 11:45 Time: 11:46 08/13/24 11:45 Patient unable to answer at this time (ie. confused, unrespo Any additional information?: No /Reproduction History /Reproductive History - polishing machine operator: /Reproductive Hx- polishing machine operator Hx Now No 08/13/24 11:45 Gestational Age (in weeks): EDC: Hx Hx Para Hx Section SAB No 08/13/24 11:45 Any additional information?: No PFSH Medical History History of pain when walking Decreased renal function (~12/2021) Breast cyst (~10/23/21) Osteoporosis Wears contact lenses Post-menopausal Cancer Anxiety Alcohol use Shortness of breath on exertion Non-smoker Home Medications ?Medication ?Instructions ?Recorded ?Last Taken ?Type duloxetine 20 mg capsule,delayed 20 mg PO DAILY 12/26/20 08/26/24 History release (Cymbalta) cholecalciferol (vitamin D3) 25 25 mcg PO DAILY 07/19/21 Unknown History mcg (1,000 unit) capsule (Vitamin D3) cyanocobalamin (vitamin B-12) 1,000 mcg PO QODAY 07/19/21 Unknown History 1,000 mcg lozenges calcium citrate 315 mg PO BID 04/30/24 Unknown History magnesium glycinate 200 mg PO DAILY 04/30/24 Unknown History omega-3 fatty acids 260 mg PO BID 04/30/24 Unknown History vitamin K2 100 mcg capsule 100 mcg PO QDAY 04/30/24 Unknown History zoledronic acid 5 mg/100 mL in 1 ea IV .YEARLY 04/30/24 Unknown History mannitol 5 %-water intravenous piggybck (Reclast) Allergy/AdvReac Type Severity Reaction Status Date / Time Sulfa (Sulfonamide Allergy Mild Hives Verified 08/26/24 11:40 Antibiotics) Family History Grandfather Alcoholism Sister Alcoholism Mother CVA (cerebral vascular accident) Depression Father Pancreatic cancer Hypertension Sister Diabetes Surgical History History of removal of retained hardware History of bunionectomy Hx of exploratory laparotomy Hx of wisdom tooth extraction Social History Smoking Status: Never smoker alcohol intake: current alcohol intake frequency: 0-2 drinks per day substance use type: does not use what type of physical activity do you participate in: walking frequency: daily Review of Systems (Anesthesia) ROS Narrative System reviewed and no additional complaints, except as documented. Physical Exam Const alert, oriented x3 and average body habitus Resp normal respiratory effort, normal air movement and clear to auscultation bilaterally Cardio regular rate, regular rhythm, no murmurs and diaphoretic
[2024-08-26 12:33] VITALS: BP 133/81; PULSE 73; RESP 16; TEMP 37; O2SAT 100
--- NOTE | 2024-08-26 13:05 | EMB_PTH ---
PATIENT: AYDIN HUERTA LOC: [facility] [place] U#:[id number] AGE/SX: 59/F ROOM: RE08/26/[address]: Dr. Gisel Gilmore DO : 1965 BED: DIS: 08/26/2024 SPEC #: [id number] RECD: 08/27/24 10:40 STATUS: LARISA JOSEPH #: [id number] CORWIN: 08/26/24 13:[address]: Gisel Gilmore DEPT: SURGICAL PATHOLOGY RECD BY: Krishna Xie ENTERED: 08/27/24 10:40 SP TYPE: ENDOM BX/C OTHR DR: Dr. Jose Landaverde MD Tissues: Endometrium, NOS Procedures: Immunohistochemical Stains Surgery Specimen Level IV IHC Stain ADDITIONAL HEADER OPERATION: Hysteroscopy, D&C, polypectomy PRE-OP DIAGNOSIS: Polyp of cervix TISSUE SUBMITTED: Endometrial curettings MICROSCOPIC DIAGNOSIS ENDOMETRIUM, CURETTAGE: * PRELIMINARY DIAGNOSIS: Malignant neoplasm * FINAL DIAGNOSIS: pending IHCs, to be reported in an addendum. COMMENT The slide/image was reviewed in intradepartmental consultation by Dr Edmar Luna ([facility] pathology division, [facility]). MICROSCOPIC DESCRIPTION Slides are reviewed. These tests were developed and their performance characteristics determined by [facility]. They may not have been cleared or approved by the U.S. Food and Drug Administration. The FDA has determined that such clearance or approval is not necessary. The above immunohistochemical/dualISH markers are ordered and reviewed by the Pathologist. GROSS DESCRIPTION The specimen is received in one container labeled with the patient's name and designated endometrial curettings. The specimen consists of multiple fragments of sánchez-brown soft tissue measuring in aggregate 3 x 1.5 x 0.3 cm. TE1. 08/27/24 CPT:52570,83141,24231z2 ADDENDUM ADDENDUM ADDENDUM ADDENDUM ADDENDUM ADDENDUM ADDENDUM ADDENDUM ADDENDUM ADDENDUM ADDENDUM ADDENDUM ADDENDUM 09/10/2024 11:19 ADDENDUM 10/16/2024 08:41 ADDENDUM 09/10/2024 11:19 ADDENDUM 09/10/2024 11:19 ADDENDUM 09/10/2024 11:19 ADDENDUM 09/10/2024 11:19 This addendum is to report the IHC results and FINAL DIAGNOSIS: ENDOMETRIUM, CURETTAGE: * ENDOMETRIOID ADENOCARCINOMA FIGO GRADE 1 - see note. Note: IHCs were performed. The tumor cells are positive for p16 and ER. The p53 is wild type. CEA focally highlights superficial epithelial surface. These findings support the above final diagnosis. Selected slide/image(s) were reviewed in intradepartmental consultation by Dr Edmar Luna ([facility] pathology division, [facility]). All matched controls reacted appropriately. This addendum is added to incorporate an outside pathology consultation report. The case was examined at [facility] by Dr. Gonzales (#[id number]) and the following diagnosis was rendered. Endometrium, curettage: Endometroid carcinoma, FIGO grade 1. See comment. COMMENT: Submitted immunohistochemistry shows the tumor cells are positive for ER, negative for p16 and have wild-type p53 staining. DNA MMR stains have not been performed. Please see complete above mentioned consultation report in EMR
--- NOTE | 2024-08-26 13:28 | PCM.HP.BLA ---
History and Physical Date of Admission: 08/26/24 Intake Vital Signs 07/11/2508:09 07/28/2508:37 07/28/2508:38 Height 5 ft 3 in 5 ft 3 in 5 ft 3 in Weight: 125 lb 6 oz BMI 22.1 BP 144/78 H Intake Visit Reasons: US result/surgical consult many ??? Customer Experience Retail Clerk Required: No Is patient in pain?: No Allergies Sulfa (Sulfonamide Antibiotics) Allergy (Mild, Verified 07/28/24 09:36) Hives Medications ?Medication ?Instructions ?Recorded ?Confirmed ?Type duloxetine 20 mg capsule,delayed 20 mg PO DAILY 12/26/20 07/28/24 History release (Cymbalta) cholecalciferol (vitamin D3) 25 25 mcg PO DAILY 07/19/21 07/28/24 History mcg (1,000 unit) capsule (Vitamin D3) cyanocobalamin (vitamin B-12) 1,000 mcg PO QODAY 07/19/21 07/28/24 History 1,000 mcg lozenges calcium citrate 315 mg PO QDAY 04/30/24 07/28/24 History magnesium glycinate mg PO 04/30/24 07/28/24 History omega-3 fatty acids 260 mg PO BID 04/30/24 07/28/24 History vitamin K2 100 mcg capsule 100 mcg PO QDAY 04/30/24 07/28/24 History zoledronic acid 5 mg/100 mL in ea .Route 04/30/24 07/28/24 History mannitol 5 %-water intravenous piggybck (Reclast) Is last menstrual period known: No Patient : No : No PFSH Medical History Decreased renal function (~12/2021) Breast cyst (~10/23/21) Osteoporosis Wears contact lenses Post-menopausal Cancer Anxiety Alcohol use Shortness of breath on exertion Non-smoker Surgical History History of bunionectomy Hx of exploratory laparotomy Hx of wisdom tooth extraction Family History Grandfather AlcoholismSister AlcoholismMother CVA (cerebral vascular accident) DepressionFather Pancreatic cancer HypertensionSister Diabetes Social History Smoking Status: Never smoker alcohol intake: current alcohol intake frequency: 0-2 drinks per day substance use type: does not use what type of physical activity do you participate in: walking frequency: daily HPI US result/surgical consult many ??? Details: AYDIN HUERTA is a 59 year old who presents for follow up ultrasound that shows a polyp structure in the endometrium measuring about 0.5 cm with vascularity. She was noted to have a polyp at the cervical os by her primary doctor so this likely is the same polyp extending upward. She does not want a full D&C, only wants the polyp removed. we discussed what a dilation and curettage is and that it is part of the removal of the polyp. History 0 Elective abortions Hx Para 0 Spontaneous abortions Hx # Term Pregnancies Ectopic pregnancies Hx # Pregnancies Multiple births # of living children 3 ROS Const ROS Unobtainable: All systems reviewed & are unremarkable except as noted in H Resp Resp: Reports system reviewed and no additional complaints, except as documented; Denies cough GI GI: Reports as per HPI Psych Psych: Reports system reviewed and no additional complaints, except as documented Exam Const General: cooperative, healthy appearing, comfortable and no acute distress Resp Effort & Inspection: normal respiratory effort Skin General: no rashes or lesions noted Psych Appearance: grossly normal Speech and Movement: speech and movement normal Coding Level of Care Code Off vis,est,level 4 Diagnoses Polyp of cervix N84.1 Assessment and Plan Assessment and Plan (1) Polyp of cervix: Status: Acute Plan: After discussing the patient's diagnosis and treatment plan options, patient wishes to proceed with surgical management. I have discussed with the patient the risks, benefits, and alternatives of the procedure which include but are not limited to risks of anesthesia, bleeding, infection, possible damage to bowel, bladder, or surrounding vasculature which could lead to additional surgery to evaluate any complications. Patient agrees to procedure and wishes to proceed. plan for hysteroscopy dilation and curettage, removal of polyp
--- NOTE | 2024-08-26 13:32 | DCINST_ITS ---
Discharge Instructions Diet Discharge Diet: No restrictions DC O2, CPAP, BIPAP needs Home O2 Discharge instructions: No Dressing / Incision Discharge Activity: Return to Normal Activity, May Shower and May Take a Tub Bath (after 1 week) May resume sexual activity in: 1-2 weeks Weight Bearing Status: Weight bearing as tolerated Lifting Restrictions: none Dressing / Incision Call your doctor if you observe: Fever of 101 or Higher, Using more than 1 pad per hour, Shortness of breath and Uncontrolled pain Follow Up Care Please Follow Up With: Gisel Gilmore DO When: Call [phone] to schedule appointment. Test Results: Test results from this visit will be discussed in further detail at your follow- up appointment, if applicable. Discharge Plan Admission Primary Reason for Your Visit: hysteroscopy dilation and curettage Attending Provider: Gisel Gilmore Primary Care Provider: Jose Landaverde Instructions Print Language: Senegalese Discharge Orders/Prescriptions Prescriptions: New oxycodone-acetaminophen [Percocet] 5-325 mg tablet 1 tab PO Q4H PRN (Reason: pain) 7 Days Qty: 5 0RF naproxen 500 mg tablet 500 mg PO BID PRN (Reason: pain) Qty: 15 0RF Continued duloxetine [Cymbalta] 20 mg capsule,delayed release(DR/EC) 20 mg PO DAILY calcium citrate 250 mg calcium tablet 315 mg PO BID zoledronic [id number] [Reclast] 5 mg/100 mL piggyback 1 ea IV .YEARLY Rx Instructions: 1 ea intravenously; once per year vitamin K2 100 mcg capsule 100 mcg PO QDAY magnesium glycinate 100 mg magnesium capsule 200 mg PO DAILY cholecalciferol (vitamin D3) [Vitamin D3] 25 mcg (1,000 unit) Capsule 25 mcg PO DAILY cyanocobalamin (vitamin B-12) 1,000 mcg Lozenge 1,000 mcg PO QODAY omega-3 fatty acids Capsule 260 mg PO BID Referrals / Follow Up: Jose Landaverde MD [Primary Care Provider] - Disposition Disposition (needs filled in before D/C Order can be placed): Home, Self Care
[2024-08-26] MEDS: Lidocaine 1% (20 ml mdv) 20 ML Vial (13:55)
--- NOTE | 2024-08-26 14:23 | PCM.OPRPT ---
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 Type of Anesthesia: MAC and Topical Anesth RN Documented Start/Stop Times: Operation Date: 08/26/24 13:05 Case Time Into Pre-Op 08/26/24 11:34 Out of Pre-Op 08/26/24 13:36 Anesthesia Start 08/26/24 13:39 Into Room 08/26/24 13:39 Procedure Start 08/26/24 13:53 Procedure End 08/26/24 14:21 Procedure Start Time: 13:53 Procedure Stop Time: 14:21 Select all DRAINS/GRAFTS/IMPLANTS that apply: None Estimated Blood Loss: 5cc Specimen collected: Yes Description of specimen(s) removed: endometrial fibroid Description of surgery: Patient was prepped and draped in a normal sterile fashion under MAC anesthesia. A weighted speculum was placed in the vagina and the anterior lip of the cervix was grasped with a single-tooth tenaculum. A paracervical block was placed with 1% lidocaine. Cervix was progressively dilated to allow passage of a 5 mm hysteroscope. The lining was fully visualized and noted to have a posterior uterine fibroid. Uterine sounded to 8 cm. Curettage was performed using the symphion device as well as a myomectomy removing the posterior uterine fibroid. The curetting's and fibroid were sent to pathology. All instruments were removed from the vagina and excellent hemostasis was noted. Patient was awoken and taken to recovery in stable condition. Surgical Findings: posterior uterine fibroid Complications Complications: No Admit VTE Documentation VTE Present on Admission: No VTE Mechan Device Prophylaxis: SCD's VTE Pharm Prophylaxis ordered?: No
[2024-08-26 14:30] VITALS: BP 108/83; BP 133/81; PULSE 67; RESP 16; TEMP 36.7; O2SAT 98
--- NOTE | 2024-08-26 14:34 | PCM.POST.ANE ---
Anesthesia: Postop Eval I Current Vital Signs Temperature: 98.1 F Pulse Rate: 63 Blood Pressure: 108/83 Respiratory Rate: 16 Pulse Ox: 99 Oxygen Delivery Method: Room Air Assessment Airway patent: Yes Spontaneous unlabored respirations: Yes Mental status: Awake and Calm nausea: No Vomiting: No Anesthesia Complication: No Fluid Hydration Crystalloid volume administer (ml): 10 Total IV fluid infused: 10 Progress Note Anesthesia document: Postop Eval 1 completed: Yes
[2024-08-26 14:35] VITALS: BP 108/83; BP 133/81; BP 136/80; PULSE 56; PULSE 63; RESP 14; RESP 16; TEMP 36.7; O2SAT 99
[2024-08-26 14:46] VITALS: BP 133/81; BP 139/86; PULSE 66; RESP 16; TEMP 36.6; O2SAT 100
[2024-08-26] MEDS: Ibuprofen 200 MG Tablet 800 MG PO (15:03)
[2024-08-26 15:43] VITALS: BP 129/71; BP 133/81; PULSE 52; RESP 16; TEMP 36.3; O2SAT 100
--- NOTE | 2024-08-26 17:14 | POSTOPAN2_ITS ---
Anesthesia Postop Eval I Sum Postop Eval Completion status Anesthesia document: Postop Eval 1 completed: Yes Anesthesia Postop Eval I Summary Anesthesia Postop Eval I Summary: Anesthesia Postop Eval I: Assessment Summary Airway patent Yes 08/26/24 14:35 [email or web address] Spontaneous unlabored Yes 08/26/24 14:35 GRADER [email or web address] respirations Mental status Awake,Calm 08/26/24 14:35 GRADER [email or web address] nausea No 08/26/24 14:35 GRADER [email or web address].[email or web address] Vomiting No 08/26/24 14:35 GRADER [email or web address] Anesthesia Postop Eval I: Fluid Summary Crystalloid volume administer 10 08/26/24 14:35 GRADER [email or web address].GDOTT (ml) Colloids volume administered ( ml) Blood Product volume administered (ml) Total IV fluid infused 10 08/26/24 14:35 GRADER [email or web address] Anesthesia Postop Eval I: Summary Notes Anesthesia Complication No 08/26/24 14:35 GRADER [email or web address].GDOTT Anesthesia Complication Comment: Post-operative progress note Anesthesia: Postop Eval II Evaluation Mental status: Awake Pain Level: 0 nausea: No Vomiting: No Complications Anesthesia Complication: No
--- NOTE | 2024-08-26 17:14 | PCM.POSTANE2 ---
Anesthesia Postop Eval I Sum Postop Eval Completion status Anesthesia document: Postop Eval 1 completed: Yes Anesthesia Postop Eval I Summary Anesthesia Postop Eval I Summary: Anesthesia Postop Eval I: Assessment Summary Airway patent Yes 08/26/24 14:35 [email or web address] Spontaneous unlabored Yes 08/26/24 14:35 PRORATION [email or web address] respirations Mental status Awake,Calm 08/26/24 14:35 [email or web address] nausea No 08/26/24 14:35 PRORATION [email or web address] Vomiting No 08/26/24 14:35 [email or web address] Anesthesia Postop Eval I: Fluid Summary Crystalloid volume administer 10 08/26/24 14:35 PRORATION [email or web address] (ml) Colloids volume administered ( ml) Blood Product volume administered (ml) Total IV fluid infused 10 08/26/24 14:35 PRORATION [email or web address] Anesthesia Postop Eval I: Summary Notes Anesthesia Complication No 08/26/24 14:35 PRORATION [email or web address] Anesthesia Complication Comment: Post-operative progress note Anesthesia: Postop Eval II Evaluation Mental status: Awake Pain Level: 0 nausea: No Vomiting: No Complications Anesthesia Complication: No
== END 2024-08-26 15:47 | disposition home or self-care (01) ==
LOC: SDC 11:26 → AC 11:27
PROVIDERS: PCP Family Medicine; Referring Provider Obstetrics & Gynecology; Visit Provider Obstetrics & Gynecology
PROC: 0UDB8ZZ Extraction of Endometrium, Via Natural or Artificial Opening Endoscopic (ICD-10-PCS; CPT 58558; principal; 2024-08-26 12:55)
DX: D25.9 Leiomyoma of uterus, unspecified (principal); N95.0 Postmenopausal bleeding; Z80.0 Family history of malignant neoplasm of digestive organs; N84.1 Polyp of cervix uteri
CPT/HCPCS: 58561; 36415; 85027; 86850; 86900; 86901; 88305; J2405

== ENCOUNTER → 2025-01-09 | Outpatient (CLI) | payer BC, SELFPAY ==
[2025-01-09 13:41] LABS: Magnesium 2.3 mg/dL (1.5-2.2)
[2025-01-09 13:57] LABS: Anion Gap 15 (5-15); BUN 14 mg/dL (4-19); BUN/Creat Ratio 17.5 RATIO (10-20); Calcium,Total 9.9 mg/dL (7.6-11.0); Carbon Dioxide 20.8 mmol/L (21.0-32.0); Chloride 104 mmol/L (98-108); Glucose 90 mg/dL (70-99); Potassium 3.9 mmol/L (3.3-5.1)
[2025-01-09 14:02] LABS: PTHIN 16 pg/mL (11-61)
--- OUTSIDE RECORDS SUMMARY | 2025-01-09 18:01 | XMS RPT_ITS | CCD ---
Author Organization [facility] Care Team Providers Care Program Writer Name Role Phone Sergio Landaverde MD Primary Care Provider Sergio Landaverde MD Primary Care Provider Franck GILBERT, Marychuy Unavailable Unavailable SERGIO LANDAVERDE Primary Care Unavailabl e TEMO, SERGIO Referring Unavailabl e SERGIO LANDAVERDE Primary Care Unavailabl e TEMO, SERGIO Referring Unavailabl e Ahsan SIMMS, Karo Rpahael Unavailable Dr. Sergio Landaverde MD Primary Care Provider Dr. Sergio Landaverde MD Attending Provider Dr. Serigo Landaverde MD Referring Provider [phone] Gladis Carreon Attending Provider Danika [employer] ESCORT DRIVER-CGladis Referring Provider Dr. Gisel Gilmore DO Attending Provider Dr. Gisel Gilmore DO Referring Provider Dr. Gisel Gilmore DO Other Provider [phone] Jill GILBERT, Katrina Unavailable Unavailable Gladis Garnica Attending Unavailable Gladis Garnica Referring Unavailable Sergio Landaverde Primary Care Unavailable Sergio Landaverde Primary Care Unavailable Sergio Landaverde Attending Unavailable Sergio Landaverde Referring Unavailable Sergio Landaverde Primary Care Unavailable Sergio Landaverde Attending Unavailable Sergio Landaverde Referring Unavailable Gladis Garnica Attending Unavailable Gladis Garnica Referring Unavailable Sergio Landaverde Primary Care Unavailable Gisel Gilmore Referring Unavailabl e Vande Velde, Gisel Attending [facility]availabl e [facility] Gladis Garnica Attending Unavailable Gladis Garnica Referring Unavailable Vande Velde, Gisel Attending Unavailabl e Ranluz, Sergio Referring Unavailable [facility] Care Unavailable [facility] Care Unavailable Gladis Garnica Attending Unavailable Saima, Sergio Referring Unavailable Vande Velde, Gisel Attending Unavailabl e [facility], [facility] Referring Unavailable [facility] Care Unavailable Vande Velde, Gisel Referring Unavailabl e Vande Velde, Gisel Consulting Unavailabl e Vande Velde, Gisel Attending Unavailabl e J[facility], [facility] Care Unavailable [facility], [facility] Care Unavailable Juhicameron, Sergio Attending Unavailable [facility], [facility] Referring Unavailable Vande Velde, Gisel Attending Unavailabl e Saima, [facility] Referring Unavailable [facility] Care Unavailable FRANK VAUGHN Admitting Unavailable FRANK VAUGHN Attending [facility]available [facility]av[facility] KARO HILL Attending Unavailable SERGIO PLASCENCIA Referring Unavaila ble [facility] Unavail[facility] e SERGIO PLASCENCIA Attending Unavaila KARO Culver Referring Unavailable SAIMA [facility] Unavailabl e FRANK VAUGHN Attending Unavailable [facility] Unavailabl e FRANK VAUGHN Attending Unavailable [facility] e [facility] Unavailabl e JONATHAN BOWER [facility] FRANK VAUGHN Referring Unavailable [facility] Unavailabl e SERGIO PLASCENCIA Referring Unavaila ble SAIMA [facility] Care Unavailabl e SERGIO PLASCENCIA Referring Unavaila ble [facility] Unavailabl e JONATHAN BOWER Attending Unavailable [facility] Care Unavailabl e Allergies Allergy Classification Reported Allergen(s) Allergy Type Date of Onset Reaction(s) Facility Sulfamethoxazole / Trimethoprim (1 source) Sulfamethoxazole / Trimethoprim Drug Allergy 06-25-19 [facility] (20 sources) Sulfamethoxazole / Trimethoprim; Translations: [SULFAMETHOXAZOLE-T RIMETHOPRIM] Drug Allergy 06-25-19 Hives, Rash [facility] (20 sources) PARoxetine; Translations: [PAROXETINE] Drug Allergy 07-19-19 Anaphylaxis, Other: See Comments [facility] (8 sources) Sulfamethoxazole Drug Allergy 07-19-19 Rash [facility] (20 sources) Trimethoprim; Translations: [TRIMETHOPRIM] Drug Allergy 12-27-19 Rash, Other: See Comments [facility] (7 sources) Sulfonamides (Antibiotic); Translations: [SULFA (SULFONAMIDE ANTIBIOTICS)] Allergy to substance 12-27-19 RASH, Hives [facility] (12 sources) Sulfonamides (Antibiotic) Drug Allergy 12-27-19 Rash, Other: See Comments [facility] (1 source) PARoxetine Drug Allergy 11-23-19 [facility] (1 source) Sulfamethoxazole Drug Allergy 11-23-19 24 [facility] (1 source) Sulfonamides (Antibiotic) Drug allergy (disorder) 08-27-19 25 [facility] (1 source) Trimethoprim Drug Allergy 11-23-19 [facility] Medications Current Medications Medication Drug Class(es) Dates Sig (Normalized) Sig (Original) acetaminophen 500 mg oral tablet (2 sources) Start: 10-30-2024 take 2 tablets by mouth every six hours as needed acetaminophen (TYLENOL EXTRA STRENGTH) 500 mg tablet Take 2 tablets by mouth every 6 hours as needed for pain. 100 tablet 10/30/2024 11:20 AM EDT 10/30/2024 Active Start: 12-29-2021 End: 01-01-2022 acetaminophen 650 mg tab(s) (TYLENOL) acetaminophen 325 mg / oxyCODONE hydrochloride 5 mg oral tablet (11 sources) Opioid Agonist Start: 08-26-2024 take 1 tablet by mouth every four hours as needed for pain Oxycodone-Acetaminophen (Percocet) 5-325 mg tablet Active 1 {tbl} PO Q4H as needed for pain 5 August 26, 2024 Start: 08-03-2023 End: 04-30-2024 Oxycodone-Acetaminophen (Per cocet) 5-325 mg tablet Discontinued 1 {tbl} PO EVERY 6 HOURS as needed for pain 21 3 August 03, 2023 April 30, 2024 12:01pm Start: 09-22-2022 take 1 tablet by wilder th every six hours Oxycodone-Acetaminophen (Percocet) 5-325 mg tablet Active 1 - 2 TABLET PO EVERY 6 HOURS 24 September 22, 2022 acyclovir 400 mg oral tablet (20 sources) Herpesvirus Nucleoside Analog DNA Polymerase Inhibitor, Herpes Simplex Virus Nucleoside Analog DNA Polymerase Inhibitor, Herpes Zoster Virus Nucleoside Analog DNA Polymerase Inhibitor Start: 08-10-2021 End: 08-10-2022 take 1 tablet by mouth every twelve hours acyclovir (ZOVIRAX) 400 mg tablet Take 1 tablet by mouth every 12 hours. 60 tablet 11 08/10/2021 08/10/2022 Active Comment on above: Take 1 tablet by wilder th every 12 hours. biotin 10 mg oral tablet (18 sources) Start: 07-27-2023 End: 04-30-2024 Biotin 10 mg tab Take by mouth. 07/27/2023 Active 24 hr buPROPion hydrochloride 150 mg extended release oral tablet (20 sources) Aminoketone Start: 07-19-2021 take 1 tablet by mouth once daily Bupropion Hcl (Wellbutrin Xl) 150 mg Tablet Extended Release 24 Hr Active 150 MG PO DAILY July 19, 2021 12:00am Start: 06-26-2021 End: 02-10-2022 take 1 tablet by mouth once daily buPROPion XL (WELLBUTRIN XL) 150 mg 24 hr tablet Take 300 mg by mouth once daily. 0 06/26/2021 02/10/2022 Discontinued Comment on above: Take 300 mg by mouth once daily. calcium carbonate 1500 mg oral tablet (20 sources) Start: End: calcium carbonate (CALTRATE) 600 mg calcium (1,500 mg) tab Take by mouth. 09/08/2022 Active calcium citrate 1040 mg oral tablet (2 sources) Start: Calcium Citrate 250 mg calcium tablet Active 315 mg PO TWICE A DAY April 30, 2024 1:00am cholecalciferol 0.025 mg oral capsule (20 sources) Vitamin D Start: Cholecalciferol, Vitamin D3, 25 mcg (1,000 unit) cap Take by mouth. 07/19/2021 Active cilgavimab 300 mg intramuscular injection (EVUSHELD) (1 source) Start: End: cilgavimab 300 mg intramuscular injection (EVUSHELD) ciprofloxacin 500 mg oral tablet (3 sources) Quinolone Antimicrobial Start: take 1 tablet by mouth twice daily Ciprofloxacin Hcl (Cipro) 500 mg Tablet Active 500 MG PO TWICE A DAY September 21, 2022 11:00pm Cyanocobalamin (Vitamin B-12) (Vitamin B-12) 1,000 mcg Lozenge (8 sources) Start: take 1000 ug by mouth every other day Cyanocobalamin (Vitamin B-12) (Vitamin B-12) 1,000 mcg Lozenge Active 1000 MCG PO EVERY OTHER DAY July 19, 2021 1:00am Start: 07-19-2021 take 1000 ug by mout h every other day Cyanocobalamin (Vitamin B-12) (Vitamin B-12) 1,000 mcg Lozenge Active 1000 MCG PO EVERY OTHER DAY July 19, 2021 12:00am Cyanocobalamin (Vitamin B-12) 1,000 mcg Lozenge (2 sources) Start: 07-19-2021 take 1000 ug by mouth every other day Cyanocobalamin (Vitamin B-12) 1,000 mcg Lozenge Active 1000 ug PO EVERY OTHER DAY July 19, 2021 1:00am diphenhydrAMINE hydrochloride 50 mg oral capsule (2 sources) Histamine-1 Receptor Antagonist Start: 12-29-2021 End: 01-01-2022 diphenhydrAMINE 50 mg (BENADRYL) Start: 12-29-2021 End: 01-01-2022 diphenhydrAMINE 50 mg inject ion (BENADRYL) DULoxetine 20 mg delayed release oral capsule (20 sources) Serotonin and Norepinephrine Reuptake Inhibitor Start: 12-26-2020 DULoxetine (CYMBALTA) 20 mg capsule Take by mouth. 12/26/2020 Active Comment on above: Take by mouth. 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) For CT CHESTABD/PEL W IVCON Routine order Administer, As Directed One Time Only, via Oral, Rectal, both Oral and Rectal, Enteric Tube, Stoma or Indwelling Catheter, Enteric Contrast as designated per enteric contrast guidelines 1 Each 0 11/30/2021 12/01/2021 Active Start: 09-07-2021 End: 09-08-2021 enteric contrast (will be pr ovided with radiology test) Indications: 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) For CT CHESTABD/PEL W IVCON Routine order Administer, As Directed One Time Only, via Oral, Rectal, both Oral and Rectal, Enteric Tube, Stoma or Indwelling Catheter, Enteric Contrast as designated per enteric contrast guidelines 1 Each 0 09/07/2021 09/08/2021 Active Comment on above: For CT CHESTABD/PEL W IVCON Routine order Administer, As Directed One Time Only, via Oral, Rectal, both Oral and Rectal, Enteric Tube, Stoma or Indwelling Catheter, Enteric Contrast as designated per enteric contrast guidelines 1 ml EPINEPHrine 1 mg/ml injection (1 source) alpha-Adrenergic Agonist, beta-Adrenergic Agonist, Catecholamine Start : 12-29 End: 01-01 EPINEPHrine 1 mg/mL (1 mL) 0.3 mg injection estrogens, conjugated (fpc) 0.3 mg / medroxyPROGESTERone acetate 1.5 mg oral tablet (14 sources) Progestin, Estrogen Start : 09-30 End: 11-30 take 0.3-1.5 mg by mouth once daily Conj Estrog-Medroxyproge st David (Prempro) 0.3-1.5 mg tablet Active 1 TABLET PO DAILY December 25, 2020 11:00pm Comment on above: Take 1 tablet by once daily. hydrocortisone 100 mg injection (1 source) Corticosteroid Start : 12-29 End: 01-01 hydrocortisone sodium succinate (PF) 100 mg injection (Solu-CORTEF) ibuprofen 600 mg oral tablet (1 source) Nonsteroidal Anti-inflammatory Drug Start : 10-30 End: 11-29 take 1 tablet by mouth every six hours as needed ibuprofen (MOTRIN) 600 mg tablet Take 1 tablet by mouth every 6 hours as needed for pain. Take with food. 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 Neck W IVCON No IV access, insert saline lock prior to the sedation, infusion, injection for imaging exam. Discontinue saline lock post exam. If Pt. has a central line or IVAD, may access for administration according to line specific nursing protocol. Once exam is complete flush line and de-access according to line specific nursing protocol in the CT contrast administration guidelines link. 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 Discontinue saline lock post exam. If Pt. has a central line or IVAD, may access for administration according to line specific nursing protocol. Once exam is complete flush line and de-access according to line specific nursing protocol in the CT contrast administration guidelines link. 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 Discontinue saline lock post exam. If Pt. has a central line or IVAD, may access for administration according to line specific nursing protocol. Once exam is complete flush line and de-access according to line specific nursing protocol in the CT contrast administration guidelines link. 1 Each 0 09/07/2021 09/08/2021 Active Comment on above: CT Chest ABD/PEL-Inj ect, intravenously, once for 1 dose.No IV access, insert saline lock prior to the beginning of sedation, infusion, injection of imaging exam. Discontinue saline lock post exam. If Pt. has a central line or IVAD, may access for administration according to line specific nursing protocol. Once exam is complete flush line and de-access according to line specific nursing protocol in the CT contrast administration guidelines link. Inject 1 Each intrav enously one time only for [address] Neck W IVCON No IV access, insert saline lock prior to the sedation, infusion, injection for imaging exam. Discontinue saline lock post exam. If Pt. has a central line or IVAD, may access for administration according to line specific nursing protocol. Once exam is complete flush line and de-access according to line specific nursing protocol in the CT contrast administration guidelines link. lysine 500 mg oral tablet (1 source) Start: 07-19-19 take 1 tablet by mouth every other day Lysine (L-Lysine) 500 mg Tablet Active 500 MG PO EVERY OTHER DAY July 19, 2021 12:00am Magnesium (3 sources) MAGNESIUM ORAL T sony by mouth. Active Magnesium Glycinate 100 mg magnesium capsule (2 sources) Start: 04-30-20 24 Magnesium Glycinate 100 mg magnesium capsule Active 200 mg PO DAILY April 30, 2024 1:00am naproxen 500 mg oral tablet (2 sources) Nonsteroidal Anti-inflammatory Drug Start: 08-27-19 25 take 1 tablet by mouth twice daily as needed for pain Naproxen 500 mg tablet Active 500 mg PO TWICE A DAY as needed for pain August 26, 2024 12:00am [place]-3 Fatty Acids capsule (2 sources) Start: 04-30-20 24 take 1 capsule by mouth twice daily [place]-3 Fatty Acids capsule Active 260 mg PO TWICE A DAY April 30, 2024 12:00pm 2 ml ondansetron 2 mg/ml injection (2 sources) Serotonin-3 Receptor Antagonist Start: 12-30-19 End: 01-02-20 ondansetron orally disintegrating 4 mg tab(s) (ZOFRAN ODT) Start: 12-29-2021 End: 01-01-2022 ondansetron (PF) 4 mg inject ion (ZOFRAN) polyethylene glycol 3350 80553 mg powder for oral solution (1 source) Osmotic Laxative Start: 10-30-2024 End: 11-29-2024 take 17 g by mouth every twelve hours as needed polyethylene glycol 3350 (MIRALAX) 17 gram/dose powder Take 17 g by mouth two times a day as needed for constipation. Dissolve dose in 4 - 8 ounces of liquid and take as directed. 510 g 10/30/2024 11:20 AM EDT 10/30/2024 11/29/2024 Active prochlorperazine 5 mg/ml injectable solution (20 sources) Phenothiazine Start: 12-29-2021 End: 01-01-2022 prochlorperazine 5 mg injection (COMPAZINE) Start: 08-10-2021 End: 02-10-2022 take 1 tablet by mouth every six hours as needed prochlorperazine (COMPAZINE) 10 mg tablet Take 1 tablet by mouth every 6 hours as needed for nausea/vomiting. 30 tablet 1 08/10/2021 02/10/2022 Discontinued Comment on above: Take 1 tablet by wilder th every 6 hours as needed for nausea/vomiting. sennosides, fpc 8.6 mg oral tablet (1 source) Start: take 1 tablet by mouth every twelve hours as needed Senna 8.6 mg tab Take 1 tablet by mouth two times a day as needed for constipation. 60 tablet 10/30/2024 11:20 AM EDT 10/30/2024 Active tixagevimab 300 mg intramuscular injection (EVUSHELD) (1 source) Start: End: tixagevimab 300 mg intramuscular injection (EVUSHELD) vitamin k2 0.1 mg oral capsule (2 sources) Start: Vitamin K2 100 mcg capsule Active 100 ug PO daily April 30, 2024 1:00am VITAMIN K2 ORAL (3 sources) VITAMIN K2 ORAL Take by mouth. Active 100 ml zoledronic acid 0.05 mg/ml injection (20 sources) Bisphosphonate Start: Zoledronic Bnna-Cvjejycz-Haroh (Reclast) 5 mg/100 mL piggyback Active 1 NMA IV .YEARLY April 30, 2024 1:00am 1 ea intravenously; once per year Start: 09-24-2023 zoledronic aci d (RECLAST) 5 mg/100 mL PREMIX piggyback Inject 5 mg intravenously every year. 09/24/2023 Active Completed/Discontinued Medications Medication Drug Class(es) Dates Sig (Normalized) Sig (Original) 90 day estradiol 0.350505 mg/hr vaginal system (20 sources) Estrogen Start: 08-17-2022 End: 07-02-2024 estradiol (ESTRING) 2 mg (7.5 mcg /24 hour) vaginal ring Use 2 mg vaginally every 3 months. 1 Each 4 08/17/2022 07/02/2024 Discontinued Start: 05-15-2022 End: 08-17-2022 estradiol 10 mcg vaginal sup pository maintenance pack (IMVEXXY) Indications: Vulvar atrophy , Vaginal atrophy , Dyspareunia in female Use 1 Suppository vaginally two times a week. 8 Each 4 05/15/2022 08/17/2022 Discontinued Start: 03-17-2022 End: 05-15-2022 estradiol 4 mcg vaginal supp ository maintenance pack (IMVEXXY) Indications: Vulvar atrophy , Vaginal atrophy , Dyspareunia in female Use 1 Suppository vaginally once daily. Insert 1 tablet intravaginally daily for 2 weeks, followed by twice weekly. 8 Suppository 3 03/17/2022 05/15/2022 Discontinued Start: 02-13-2022 End: 03-17-2022 estradiol (ESTRACE) 0.01 % ( 0.1 mg/gram) vaginal cream Indications: Vulvar atrophy , Vaginal atrophy , Superficial dyspareunia Use 1 g vaginally two times a week. Apply pea sized amount of cream to vulva. 42.5 g 3 02/13/2022 03/17/2022 Discontinued Comment on above: Use 1 g vaginally two times a week. Appl y pea sized amount of cream to vulva. Use 1 Suppository va ginally once daily. Insert 1 tablet intravaginally daily for 2 weeks, followed by twice weekly. Use 1 Suppository va ginally two times a week. Use 2 mg vaginally e very 3 months. [place]-3 Fatty Acids ([place] 3) Capsule (10 sources) Start: End: take 1 capsule by mouth once daily [place]-3 Fatty Acids ([place] 3) Capsule Discontinued 1000 mg PO DAILY July 19, 2021 1:00am April 30, 2024 12:02pm Start: 07-19-2021 take 1 capsule by mo uth once daily [place]-3 Fatty Acids ([place] 3) Capsule Active 1000 MG PO DAILY July 19, 2021 1:00am Start: 07-19-2021 take 1 capsule by mo uth once daily [place]-3 Fatty Acids ([place] 3) Capsule Active 1000 MG PO DAILY July 19, 2021 12:00am Problems Active Problems Problem Classification Problem Date Documented Date Episodic/Chronic Administrative/social admission (2 sources) Education and/or schooling finding; Translations: [Problems related to education and literacy, unspecified] Onset: 10-23-2024 10-22-2024 Episodic Allergic reactions (10 sources) Contact dermatitis due to poison delmi; Translations: [Allergic contact dermatitis due to plants, except food] 12-26-2020 Episodic Cancer of uterus (13 sources) Endometrial carcinoma; Translations: [Malignant neoplasm of endometrium] Onset: 08-27-2024 09-04-2024 Chronic Maintenance chemotherapy; radiotherapy (9 sources) Patient encounter status; Translations: [Encounter for antineoplastic immunotherapy] Chronic Menopausal disorders (15 sources) Atrophy of vagina; Translations: [Postmenopausal atrophic vaginitis] Onset: 09-04-2024 Chronic Comment on above: 2 occasions outside of intercourse. 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); Translations: [Follicular lymphoma grade II, lymph nodes of multiple sites] Onset: 08-02-2021 Chronic Osteoporosis (8 sources) Senile osteoporosis; Translations: [Age-related osteoporosis without current pathological fracture] Onset: 11-29-2023 10-20-2024 Chronic Other connective tissue disease (9 sources) Foot pain; Translations: [Pain in left foot] 09-22-2022 Episodic Other connective tissue disease (4 sources) Pain in left foot; Translations: [Pain in limb] 08-03-2023 Episodic Other diseases of kidney and ureters (2 sources) Unspecified hydronephrosis; Translations: [Unspecified hydronephrosis] Onset: 07-02-2024 Episodic Other female genital disorders (2 sources) Superficial [...] vulva; Translations: [Atrophy of vulva] Episodic Other female genital disorders (8 sources) Polyp of cervix; Translations: [Polyp of cervix uteri] 07-07-2024 Episodic Other hematologic conditions (1 source) Macrocytosis; Translations: [Other specified diseases of blood and blood-forming organs] 07-02-2024 Chronic Other hematologic conditions (1 source) Other specified diseases of blood and blood-forming organs; Translations: [Macrocytosis] Onset: 07-02-2024 Chronic Other screening for suspected conditions (not mental disorders or infectious disease) (4 sources) Mammography abnormal; Translations: [Other abnormal and inconclusive findings on diagnostic imaging of breast] Onset: 07-07-2024 Episodic Ovarian cyst (1 source) Cyst of ovary; Translations: [Unspecified ovarian cyst, unspecified side] Episodic Residual codes; unclassified (17 sources) Patient encounter status; Translations: [Encounter for prophylactic measures, unspecified] Episodic Residual codes; unclassified (1 source) Family history of malignant neoplasm of pancreas; Translations: [Family history of malignant neoplasm of digestive organs] 09-22-2024 Episodic Residual codes; unclassified (1 source) Postoperative state; Translations: [Other specified postprocedural states] 11-13-2024 Episodic Residual codes; unclassified (1 source) Other specified postprocedural states; Translations: [Post-operative state] Onset: 11-24-2024 Episodic Residual codes; unclassified (1 source) Family history of malignant neoplasm of digestive organs; Translations: [Family history of pancreatic cancer] Onset: 09-22-2024 Episodic Unclassified (4 sources) Encounter for screening colonoscopy; Translations: [Z12.11 - Encounter for screening for malignant neoplasm of colon] Unclassified (2 sources) Preprocedural examination done 09-22-2024 Past or Other Problems Problem Classification Problem Date Documented Da te Episodic/Chronic Other diseases of kidney and ureters (6 sources) Hydronephrosis; Translations: [Unspecified hydronephrosis] Onset: 07-02-2024 10-20-2024 Episodic Other female genital disorders (1 source) Polyp of cervix uteri; Translations: [Polyp of cervix uteri] Onset: 07-11-2024 Episodic Urinary tract infections (1 source) Urinary tract infection, site not specified; Translations: [Urinary tract infection, site not specified] Onset: 05-07-2024 Episodic Results Test Name Value Interpretation Reference Range Facility REFERRAL FOR ADDITIONAL BIOM ARKER AND MOLECULAR TESTINGon 12-08-2024 REFERRAL FOR ADDITIONAL BIOMARKER AND MOLECULAR TESTING Normal [facility] Comment on above: Order Comment: Speci men Type: TISSUE SPECIMEN Ordering Facility: [facility] Address: [address] [place] [address] Result Comment: Requ est has been received for evaluation and the results will be issued separately. Performed By: #### A PMOL #### [facility] CLIA [id number] [address] [place] [address] [place] [facility] CNOVSP Visit (SP) Office (Aditi VALADEZ) -- JOSEPHINE RENEE ([id number]) 1965 F Date Time Provider Department 11/24/24 11:00 AM FRANK VAUGHN During your visit today, we recorded the following information about you: Temperature Pulse Blood pressure Weight 98.5 degrees 66/minute 124/70 56.8 kg Frank Vaughn MD 11/27/2024 3:25 PM Signed DATE OF SERVICE: 11/24/2024 PROBLEM: Josephine Renee presents for postop visit. SURGERY AND DATE: 10/30/2024 - Laparoscopic Hysterectomy Total For Uterus 250 G Or Less W/removal Tube(s) And/or Ovary(s) - Bilateral, Intraoperative Id Of [place] Lymph Node(s) Incl'd Injection Of Non-rad Dye When Performed, and Laparoscopy Surgical W/retroperitoneal Lymph Node Sampling Single Or Multiple - Bilateral PATHOLOGY: FINAL DIAGNOSIS Date Value Ref Range Status 10/30/2024 Final A. Pelvic sentinel lymph nodes, lymphadenectomy: - One benign lymph node. B. Presacral sentinel lymph nodes, lymphadenectomy: - One benign lymph node. C. Uterus, cervix, fallopian tubes and ovaries; hysterectomy and bilateral salpingo-oophorectomy: - No residual endometrial carcinoma, see template. ALLA/keith 10/31/2024 SUBJECTIVE/INTERVAL HISTORY: Patient reports that her recovery was far better than expected, with minimal pain and a return to normal activities, including driving. She feels 100% back to normal and is very satisfied with the outcome of the surgery and pathology report. She inquires about resuming hormone replacement therapy, specifically local estrogen, to address painful intercourse and UTIs. She had previously used a vaginal ring but discontinued it a couple of years before her cancer diagnosis. She expresses interest in using local estrogen cream or a vaginal insert like Replens. Musculoskeletal: (-) pain OBJECTIVE: VITALS: BP 124/70 (BP Site: Left Arm, BP Position: Sitting, BP Cuff Size: Regular Adult) Pulse 66 Temp 36.9 ?C (98.5 ?F) (Temporal) Wt 56.8 kg (125 lb 3.5 oz) SpO2 98% BMI 22.18 kg/m? HEENT: Normocephalic, atraumatic, mucus membranes moist, and no lesions ABDOMEN: Abdomen soft, non-tender, no hepatosplenomegaly. Incision healing well. 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 1. Endometrial cancer (HCC) Pathology report shows no residual cancer in the uterus and negative lymph nodes, indicating an early stage. Patient is at exceedingly low risk for recurrence. - No further treatment with radiation or chemotherapy is recommended. - Scheduled follow-up exams every 4 months for the first 2 years, alternating with Jonathan, to monitor for recurrence at the vaginal cuff. - After 2 years, exams will be conducted every 6 months until the 5-year joanne. - Given no residual tumor, molecular class unable to be determined. Will need to obtain MMR stains and POLE from original biopsy. 2. Post-operative state Recovery is progressing well, with the patient reporting feeling "100% back to normal" and minimal pain. Incisions appear to be healing appropriately. - Advised use of calamine lotion or Vaseline to alleviate itching at incision sites. - Discussed avoidance of systemic hormone replacement therapy due to estrogen-driven nature of the cancer. - Recommended waiting at least 6 weeks post-surgery before considering intercourse; advised against rushing into activities. - Discussed potential use of local estrogen cream after surgical healing for dyspareunia, to be considered after the first follow-up. - Advised against the use of estrogen rings due to systemic absorption. - Discussed non-hormonal options like Replens, to be considered after 6 weeks. - Referral to pelvic pain clinic for further evaluation and management of dyspareunia after the first follow-up. - Scheduled follow-up appointment in 3 months to assess healing and discuss further management. Frank Vaughn MD Recording using [employer] software for draft documentation of the visit was discussed with the patient/authorized unit support representative; all questions welcomed and answered. Patient/authorized unit support representative agreed to proceed Allergies As of Date: 11/24/2024 Noted Allergy Reaction SULFA (SULFONAMIDE ANTIBIOTICS) 12/26/2020 2 - Rash 14 - Other: See Comments SULFAMETHOXAZOLE-TRIMETHOP RIM 06/25/2019 4 - Hives 2 - Rash PAROXETINE 07/19/2021 10 - Anaphylaxis 14 - Other: See Comments TRIMETHOPRIM 12/26/2020 2 - Rash 14 - Other: See Comments Date Reviewed: 11/24/2024 Reviewed by: Meme Mccarthy MA - Fully Assessed Reason for Visit: Post-Op Visit [1236] Primary Visit Diagnosis:Endometrial cancer (HCC) [C54.1] Other Visit Diagnosis:Post-operative state [Z98.890] Prescriptions as of 11/27/2024 - Senna 8.6 mg tab Take 1 tablet by mouth two times a day as needed for constipation. - polyethyle (more content not included)... Normal [facility] ANES POSTPROC EVALon 05-15-2 025 ANES POSTPROC EVAL HNO ID: [id number] Author: RACHEL BRITT MD Service: ? Author Type: Physician Type: Anesthesia Postprocedure Evaluation Filed: 10/30/2024 14:36 Note Text: POST ANESTHESIA EVALUATION NOTE : 1965 Procedure Summary Date: 10/30/24 Room / Location: [address] Anesthesia Start: 723 Anesthesia Stop: 1029 Procedures: LAPAROSCOPIC HYSTERECTOMY TOTAL FOR UTERUS 250 G OR LESS W/REMOVAL TUBE(S) AND/OR OVARY(S) (Bilateral) INTRAOPERATIVE ID OF SENTINEL LYMPH NODE(S) INCL'D INJECTION OF NON-RAD DYE WHEN PERFORMED (Pending) Diagnosis: Endometrial cancer (HCC) Preop examination (Endometrial cancer (HCC) [C54.1]) (Preop examination [Z01.818]) Surgeons: Frank Vaughn MD Responsible Provider: Rachel Britt MD Anesthesia Type: general ASA Status: 3 Anesthesia Type: general Airway Type: ETT Last Vitals Vitals Value Taken Time BP 107/56 10/30/24 1228 Temp 36.2 ?C (97.2 ?F) 10/30/24 1158 Pulse 75 10/30/24 1228 Resp 16 10/30/24 1228 SpO2 98 % 10/30/24 1228 Post Anesthesia Patient Status Patient Evaluation: bedside. Anticipated Disposition: phase 2 then home. Neurological Status: sleepy but arousable. Pulmonary Status: breathing comfortably on supplemental oxygen Airway Control: returned to baseline unsupported. Cardiovascular Status: stable. Pain Management: clinically adequate Postoperative Hydration: acceptable. Intraoperative Events: no significant anesthesia events Post Operative Nausea/Vomiting Status: no significant post operative nausea or vomiting Recommendation: continue current plan of care. Anesthesia Observations No Documentation SIGNATURE: Rachel Britt MD PATIENT NAME: Josephine Renee DATE: October 30, 2024 TIME: 2:36 PM CSN: [id number] Normal [facility] ANES PRE-OPon 10-30-2024 ANES PRE-OP HNO ID: [id number] Author: RACHEL BRITT MD Service: ? Author Type: Physician Type: Anesthesia Preprocedure Evaluation Filed: 10/30/2024 07:22 Note Text: ANESTHESIOLOGY DAY OF SURGERY NOTE : 1965 Procedure Information Date/Time: 10/30/24729 Procedures: LAPAROSCOPIC HYSTERECTOMY TOTAL FOR UTERUS 250 G OR LESS W/REMOVAL TUBE(S) AND/OR OVARY(S) (Bilateral) INTRAOPERATIVE ID OF SENTINEL LYMPH NODE(S) INCL'D INJECTION OF NON-RAD DYE WHEN PERFORMED (Pending) Location: [place] [address] / [place] Surgeons: Frank Vaughn MD Estimated body mass index is 21.79 kg/m? as calculated from the following: Height as of 10/20/24: 160 cm (5' 3"). Weight as of 10/20/24: 55.8 kg (123 lb). Most recent hematocrit and potassium results: Hematocrit 41.5 09/22/2024 Potassium 3.5 09/22/2024 Relevant Problems -RENAL (+) Hydronephrosis I - PHYSICAL EVALUATION AIRWAY Patient intubated: No. Tracheostomy tube not present Mallampati: I. TM distance: >3 FB. Neck ROM: full ROM without neurological symptoms. Mouth opening: adequate. Short neck: no. Thick neck: no Microretrognathia/Micronag thia/Recessed Chin: No DENTAL Dental findings: teeth intact. II - ANESTHESIA PLAN ASA Score: 3 Anesthetic Plan: general Airway type: ETT The patient is not a current smoker. NPO Status: adequate Beta Alexandr Monitoring Plan Monitoring plan: standard ASA. Post Procedure Analgesic Plan Postoperative analgesic plan: multimodal analgesia. Informed Consent Anesthetic risks, benefits, alternatives, personnel and consent discussed: yes. Patient / Responsible Constitution Party agrees to proceed: yes Patient / Surrogate agrees to blood products: Yes DNR status not reviewed with patient and/or family prior to surgery. Significant changes in the patient condition since the History and Physical, not otherwise documented in primary service progress note: no. Potential Anesthesia issues that may suggest increased risk of complications or contraindication to planned procedure: none. Vitals Value Taken Time BP 138/75 10/30/24 0630 Pulse 62 10/30/24 0630 Resp 16 10/30/24 0630 Temp 36.3 ?C (97.3 ?F) 10/30/24 0630 SpO2 100 % 10/30/24 0630 Facility-Administered Medications as of 10/30/2024 Medication Dose Route Frequency lidocaine (PF) 10 mg/mL (1 %) 1-2 mg injection (XYLOCAINE) 0.1-0.2 mL INTRADERMAL PRN Or lidocaine 1% 0.25 mL subcutaneous j-tip syringe (XYLOCAINE) 0.25 mL SUBCUTANEOUS PRN NaCl 0.9% iv flush bag 20 mL INTRAVENOUS PRN [COMPLETED] heparin 5,000 Units injection 5,000 Units SUBCUTANEOUS ONCE ceFAZolin 2 g in dextrose (iso-osmotic) 50 mL (ANCEF,KEFZOL) 2 g INTRAVENOUS Pre-Op Once metroNIDAZOLE iv piggyback 500 mg in NaCl (iso-osmotic) 100 mL (FLAGYL) 500 mg INTRAVENOUS Pre-Op Once [COMPLETED] acetaminophen 1,000 mg tab(s) (TYLENOL) 1,000 mg ORAL Pre-Op Once [COMPLETED] gabapentin 600 mg tab(s) (NEURONTIN) 600 mg ORAL Pre-Op Once Outpatient Medications as of 10/30/2024 Medication Sig Biotin 10 mg tab Take by mouth. calcium carbonate (CALTRATE) 600 mg calcium (1,500 mg) tab Take by mouth. Cholecalciferol, Vitamin D3, 25 mcg (1,000 unit) cap Take by mouth. zoledronic acid (RECLAST) 5 mg/100 mL PREMIX piggyback Inject 5 mg intravenously every year. DULoxetine (CYMBALTA) 20 mg capsule Take by mouth. I have interviewed and examined the patient. I have reviewed the medical record and/or the pre-anesthesia evaluation, pertinent labs, and test results. This contains updated information obtained within 48 hours of Surgery/Procedure. SIGNATURE: Rachel Britt MD PATIENT NAME: Josephine Renee DATE: October 30, 2024 TIME: 7:21 AM CSN: [id number] Normal [facility] BRIEF OP NOTon 10-30-2024 BRIEF OP NOT HNO ID: [id number] Author: CASSANDRA ACEVES MD Service: Gynecology Oncology Author Type: Fellow Type: Brief Op Note Filed: 10/30/2024 10:03 Note Text: BRIEF OPERATIVE / PROCEDURE NOTE LOG ID: [id number] SURGERY/PROCEDURE DATE: 10/30/2024 INCISION/PROCEDURE START TIME: 8:11 AM INCISION CLOSE/PROCEDURE END TIME: 10:02 AM SURGEON(S)/PROCEDURALIST(S ) AND DIRECTOR OF FUNDRAISING(S): Surgeons and Role: * Frank Vaughn MD - Primary * Jazzmine Coley MD - Resident - Assisting * Cassandra Aceves MD - Fellow * Sandy Cruz MD - Fellow No Additional Staff SURGERY/PROCEDURE(S): Total laparoscopic hysterectomy, bilateral salpingo-oophorectomy Bilateral sentinel lymph node mapping Bilateral sentinel lymph node biopsies ANESTHESIA: Choice - Anesthesia Consult FINDINGS: Normal upper abdominal survey. No carcinomatosis Post-menopausal normal appearing uterus, tubes, and ovaries Successful ICG mapping bilaterally. Left external iliac sentinel lymph node and Right presacral sentinel lymph node. ESTIMATED BLOOD LOSS: 25 mls SPECIMENS: ID Type Source Tests Collected by Time A : LEFT pelvic sentinel lymph nodes Tissue Lymph Node, Left, [place] SURGICAL PATHOLOGY Frank Vaughn MD 10/30/2024 8:40 AM B : RIGHT presacral sentinel lymph nodes Tissue Lymph Node, Right, [place] SURGICAL PATHOLOGY Frank Vaughn MD 10/30/2024 9:05 AM C : Tissue Uterus, Cervix, Bilateral Fallopian Tubes, and Bilateral Ovaries SURGICAL PATHOLOGY Frank Vaughn MD 10/30/2024 9:16 AM COMPLICATIONS: None CLOSURE TECHNIQUE: Primary PRE-OP/PRE-PROCEDURE DIAGNOSIS: G1 EEC POST-OP/POST-PROCEDURE DIAGNOSIS: Same as Preop Patient was accompanied to the next level of care by a licensed practitioner from the surgical team pending completion of this brief op note (or operative note) SIGNATURE: Cassandra Aceves MD PATIENT NAME: Josephine Renee DATE: October 30, 2024 TIME: 9:59 AM Normal [facility] OPERATIVE NOon 10-30-2024 OPERATIVE NO HNO ID: [id number] Author: FRANK VAUGHN MD Service: Gynecology Oncology Author Type: Physician Type: Operative Report Filed: 10/30/2024 14:28 Note Text: PRODUCTION OPERATIONS MANAGER OPERATIVE/PROCEDURE REPORT LOG ID: [id number] Surgery/Procedure Date: 10/30/2024 Incision/Procedure Start Time: 8:11 AM Incision Close/Procedure End Time: 10:00 AM Surgeon(s)/Proceduralist(s ) and Gas Brazer(s): Surgeons and Role: * Frank Vaughn MD - Primary * Jazzmine Coley MD - Resident - Assisting * Cassandra Aceves MD - Fellow * Sandy Cruz MD - Fellow No Additional Staff Preoperative Diagnosis: 1. Endometrial cancer Postoperative Diagnosis: 1. Endometrial cancer. Procedures: 1. Exam under anesthesia 2. Total laparoscopic hysterectomy, bilateral salpingo-oophorectomy 3. [place] lymph node mapping, bilateral 3. [place] lymph node biopsy, bilateral Anesthesia: General Estimated Blood Loss: 25cc Indications: This is a 59 y/o female who was referred to [place] for evaluation and management of endometrial cancer. We discussed the treatment approach including surgical excision for staging and treatment. After reviewing R/B/A a consent was signed in the office. Findings: 1. No evidence of extrauterine disease. Bilateral SLN mapped, left to external iliac bifurcation and right to pre-sacral region. 2. No adhesive disease noted on abdominal entry. DESCRIPTION OF PROCEDURE: A preoperative huddle was performed in preop per protocol. The patient was then taken to the operating room where general anesthesia was provided. Once the area was secured with an ET tube, she was placed in dorsal lithotomy position using Yellofin stirrups. Care was taken to pad and protect all joints from hyperflexion and extension. We then proceeded with a preoperative time-out per protocol. Ancef were used for antibiotic prophylaxis. Preoperative heparin and pneumo-boots were used for DVT prophylaxis. She was sterilely prepped and draped using ChloraPrep on the abdomen and Betadine for the perineum. Once she was prepped and draped, we proceeded to place a Colon catheter under sterile technique. A speculum was placed in the vagina and the anterior lip of the cervix was grasped with a tenaculum. Dilute ICG at 1mg/ml was injected at 3 and 6 at the cervix Approximately 2 cc total were injected. A VCare was then placed in the routine fashion. New gloves were obtained and attention was turned to the left upper quadrant of the abdominal wall. A direct left upper quadrant entrywas performed with a 5-mm trocar. At this point, we placed additional 5-mm trocar at the level of umbilicus and additional 5-mm one handbreadth lateral to the LUQ port and in the right lower quadrant, a 5-mm port was placed. The patient was then placed in steep Trendelenburg. The right retroperitoneum was entered lateral to the IP ligament with the ligasure device. The paravesical and pararectal spaces were then developed. The ureter was mobilized medially. [place] lymph node was identified medial to the common iliacs in the presacral space. Channels were observed to be leading to the sentinel lymph node. The sentinel lymph node was carefully dissected off the underlying iliac vessels and placed in theobturator space for removal later in the case. Attention was then turned to the left retroperitoneum. The retroperitoneum was entered in a similar fashion lateral to the IP ligament. The paravesical and pararectal spaces were developed. The ureter was mobilized medially. A sentinel lymph node was identified in the bifurcation of the iliac vessels. Channels could be appreciated entering into the sentinel lymph node. No other sentinel lymph nodes were observed in the obturator space or the periaortic region. The sentinel lymph node again was carefully dissected using the ligasure off the underlying iliac vessels and stored in the obturator space. We then proceeded with the hysterectomy portion. Bilateral round ligaments were doubly cauterized and transected using the ligasure. The anterior leaf of the broad ligament was carefully dissected down to the level of the vesicouterine peritoneum. A bladder flap was developed at this point. Attention was then turned to the posterior leaf of the broad ligament. At this point, we proceeded to doubly cauterized and transected the IP ligaments bilaterally. This was done with a careful visualization of the ureters, lateral and deep to the IP ligaments. In fact, a window was made from the peritoneum to create space between the IP and the ureter bilaterally. The dissection of the posterior leaf of the peritoneum was then carried down medially and posteriorly to the level of the posterior cup of the VCare. The uterine arteries were then doubly cauterized and transected using ligasure bilaterally. The uterine artery pedicles were lateralized around the VCare cup. A colpotomy was made with monopolar cautery. The spe (more content not included)... Normal [facility] Pathology biopsy report Michael (Tiss)on 10-30-2024 AP DISCLAIMER Normal [facility] Comment on above: Order Comment: Speci men Type: TISSUE SPECIMEN Ordering Facility: [facility] Address: [address] [place] [address] Result Comment: Yomi dimas Developed Test (LDT) Disclaimer: Performance characteristics of immunohistochemical, immunofluorescent, and chromogenic in-situ hybridization tests have been determined by the performing laboratory within [facility] Pathology and Laboratory Medicine Department ([facility], [facility], [facility], [facility], [facility], [facility], or [facility]) in a manner consistent with CLIA requirements. One or more of these tests may not have been cleared or approved by the FDA. [facility] is regulated under CLIA as qualified to perform high-complexity testing. These tests are used for clinical purposes. These should not be regarded as investigational or for research. Positive and negative controls stain appropriately. Performed By: #### A PMOL #### [facility] [place] [id number] [address] [place] [address] BLOCK FOR ADDITIONAL BIOMARKERS/MOLECULAR STUDIES No residual carcinoma Normal [facility] Comment on above: Order Comment: Speci men Type: TISSUE SPECIMEN Ordering Facility: [facility] Address: [address] [place] [address] Performed By: #### A PMOL #### [facility] [id number] [address] [place] [address] OF DEMETRIUS CASE REPORT Normal [facility] Comment on above: Order Comment: Speci men Type: TISSUE SPECIMEN Ordering Facility: [facility] Address: [address] [place] [address] Result Comment: Surg [facility] Pathology Report Case: [id number] Authorizing Provider: Frank Vaughn MD Collected: 10/30/2024 08:40 AM Ordering Location: Admitting Received: 10/30/2024 11:19 AM Pathologist: Juan Jose Perez MD Specimens: A) - Lymph Node, Left, [place], LEFT pelvic sentinel lymph nodes B) - Lymph Node, Right, [place], RIGHT presacral sentinel lymph nodes C) - Uterus, Cervix, Bilateral Fallopian Tubes, and Bilateral Ovaries Performed By: #### A PMOL #### [facility] [id number] [address] [place] [address] OF [facility] CLINICAL HISTORY Normal [facility] Comment on above: Order Comment: Speci men Type: TISSUE SPECIMEN Ordering Facility: [facility] Address: [address] [place] [address] Result Comment: Pre- op diagnosis: Endometrial cancer (HCC) [C54.1] Preop examination [Z01.818] Performed By: #### A PMOL #### [facility] CLIA [id number] [address] [place] [address] DIAGNOSIS COMMENT Keratin AE1AE3 per sentinel lymph node protocol is negative in A and B. Normal [facility] Comment on above: Order Comment: Speci men Type: TISSUE SPECIMEN Ordering Facility: [facility] Address: [address] [place] [address] Performed By: #### A PMOL #### [facility] [place] [id number] [address] [place] [address] FINAL DIAGNOSIS Normal [facility] Comment on above: Order Comment: Speci men Type: TISSUE SPECIMEN Ordering Facility: [facility] Address: [address] [place] [address] Result Comment: A. P elvic sentinel lymph nodes, lymphadenectomy: - One benign lymph node. B. Presacral sentinel lymph nodes, lymphadenectomy: - One benign lymph node. C. Uterus, cervix, fallopian tubes and ovaries; hysterectomy and bilateral salpingo-oophorectomy: - No residual endometrial carcinoma, see template. ACV/kr 10/31/2024 at 1534 EDT Performed By: #### A PMOL #### [facility] CLIA [id number] [address] [place] [address] FINAL PERFORMING LAB Normal [facility] Comment on above: Order Comment: Speci men Type: TISSUE SPECIMEN Ordering Facility: [facility] Address: [address] [place] [address] Result Comment: Diag nostic interpretation performed at: [facility], [address] [place] [address] CLIA# [id number] Financial Manager: Darvin Ortiz MD Performed By: #### A PMOL #### [facility] CLIA [id number] [address] [place] [address] [id number] STATES OF DEMETRIUS GROSS DESCRIPTION [facility] Comment on above: Order Comment: Speci men Type: TISSUE SPECIMEN Ordering Facility: [facility] Address: [address] [place] [address] Result Comment: A. L ymph Node, Left, [place] Received in formalin designated "left pelvic sentinel lymph nodes" is a sánchez lymph node that measures 0.7 x 0.4 x 0.2 cm. The lymph node is serially sectioned and entirely submitted in 1 cassette. WE October 30, 2024 1:11 PM Gross examination performed at [facility], [address] [place] [address].[place] [address] B. Lymph Node, Right, [place] Received in formalin designated "right presacral sentinel lymph nodes" is a pink-sánchez lymph node that measures 1.2 x 0.6 x 0.5 cm. The lymph node is serially sectioned and entirely submitted in 1 cassette. WE October 30, 2024 1:13 PM Gross examination performed at [facility], [address] [place] [address].[place] [address] C. Uterus, Cervix, Bilateral Fallopian Tubes, and Bilateral Ovaries Received fresh designated "uterus, cervix, bilateral fallopian tubes bilateral ovaries" is a uterus with attached cervix that weighs 32 g and measures 5.7 x 4.1 x 1.5 cm. The serosal surface is pink-sánchez and smooth. The ectocervix is pink-sánchez and smooth. The cervical os is round. The endocervical canal is pink-sánchez and smooth measuring 2 cm in greatest dimension. The endometrial cavity measures 2.7 x 2 cm. The endometrium is pink-sánchez smooth and hemorrhagic with a pink-sánchez exophytic and polypoid lesion that measures 1.8 x 1.5 x 0.3 cm. The lesion is located on the right posterior endometrial wall, 1.5 cm from the lower uterine segment. Sectioning through the mass reveals that it does not extend into the underlying myometrium (less than 50%). The myometrium measures 0.9 cm in thickness. Within the myometrium is a sánchez-white whirled homogeneous and bulging nodule that measures 1.1 cm in greatest dimension. Attached to the uterus is the left fallopian tube that measures 7.2 cm in length and 0.5 cm in diameter. The outer surface is pink-sánchez and smooth. The fimbriated end is unremarkable. Sectioning through the tube reveals a patent lumen. Attached to the fallopian tube is the left ovary that measures 2.4 x 0.7 x 0.5 cm. The outer surface is sánchez-yellow and granular. Sectioning through the ovary reveals unremarkable ovarian parenchyma. Also attached to the uterus is the right fallopian tube that measures 10.2 cm in length and 0.4 cm in diameter. The outer surface is pink-sánchez and smooth. A paratubal cyst is present. The fimbriated end is unremarkable. Sectioning through the tube reveals a patent lumen. Attached to the fallopian tube is the right ovary that measures 2.4 x 0.9 x 0.5 cm. The outer surface is sánchez and granular. Sectioning through the ovary reveals unremarkable ovarian parenchyma. [employer] sections are submitted as follows: C1. Anterior endocervical canal, 12:00. C2. Posterior endocervical canal, 6:00. C3. Posterior lower uterine segment. C4. Anterior endomyometrium with serosa. C5-C7. Entire lesion with posterior endomyometrium and serosa. C8. Intramural nodule. C9. Left fallopian tube with entire fimbriated end. C10. Left ovary. C11. Right fallopian tube with entire fimbriated end C12. Right ovary. C13-16. Rest of the endometrium WE October 30, 2024 11:44 [place] [address] Additional sections are submitted as follows: C13-C14. Remaining anterior endometrium C15-C16. Remaining posterior endometrium WE November 04, 2024 9:15 [place] [address] Performed By: #### A PMOL #### [facility] CLIA [id number] [address] [place], [place] [address] [address] [place] SYNOPTIC REPORT ENDOMETRIUM Normal [facility] Comment on above: Order Comment: Speci men Type: TISSUE SPECIMEN [facility]ing Facility: [facility] Address: [address] [place] [address] Result Comment: UTER US, ENDOMETRIUM, CARCINOMA: RESECTION - All Specimens AJCC 8 - Protocol posted: 05/28/2024 SPECIMEN Procedure: Total hysterectomy Procedure: Bilateral salpingo-oophorectomy Specimen Integrity: Intact TUMOR Tumor Size: Cannot be determined: no residual carcinoma Histologic Type: Endometrioid carcinoma Histologic Grade: FIGO grade 1 Molecular Type: p53 Immunohistochemistry: Normal (wild-type) expression TP53 Mutation Testing: Not performed ProMisE Classification: Cannot be determined: MMR and POLE not tested TCGA Classification: Cannot be determined: not tested Adenomyosis: Not identified Uterine Serosal Involvement: Not identified Lower Uterine Segment Involvement: Not identified Cervical Involvement: Not identified Other Tissue / Organ Involvement: Not identified (other tissues / organs submitted and not involved) Peritoneal / Pelvic Washings / Ascitic Fluid: Not submitted Lymphatic and / or Vascular Invasion: Not identified REGIONAL LYMPH NODES Regional Lymph Node Status: : All regional lymph nodes negative for tumor cells Lymph Nodes Examined: Total Number of Pelvic Nodes Examined: 2 Number of Pelvic [place] Nodes Examined: 2 Total Number of Para-aortic Nodes Examined: Cannot be determined: not attempted pTNM CLASSIFICATION (AJCC 8th Edition) Reporting of pT, pN, and (when applicable) pM categories is based on information available to the pathologist at the time the report is issued. As per the AJCC (Chapter 1, 8th Ed.) it is the managing physician's responsibility to establish the final pathologic stage based upon all pertinent information, including but potentially not limited to this pathology report. pT Category: pT1a pN Category: pN0 FIGO STAGE FIGO Stage (FIGO 2009 Staging / 2018 FIGO Cancer Report): IA FIGO Stage (2022 Staging for Cancer of the Endometrium): IA1 ADDITIONAL FINDINGS Additional Findings: None identified Performed By: #### A PMOL #### [facility] [id number] [address] [place] [address] [place] [id number] 10-20-2024 ECG01 Ventricular Rate : 7 3 BPM Atrial Rate : 73 BPM QRS Duration : 70 ms Q-T Interval : 382 ms QTC Calculation(Bazett) : 420 ms Calculated R Canton : -7 degrees Calculated T [place] : 55 degrees NORMAL SINUS RHYTHM LOW VOLTAGE QRS, CONSIDER PULMONARY DISEASE, PERICARDIAL EFFUSION, OR NORMAL VARIANT ABNORMAL ECG Confirmed by MD PETER, GONZALO ([id number]) on 10/21/2024 12:07:04 PM NAME : JOSEPHINE RENEE PID : [id number] : 1965 Gender : Female Race : ORD : Procedure Date : Oct 20 2024 09:51:07 Edit Date : Oct 21 2024 12:07:10 Diagnosis: NORMAL SINUS RHYTHM LOW VOLTAGE QRS, CONSIDER PULMONARY DISEASE, PERICARDIAL EFFUSION, OR NORMAL VARIANT ABNORMAL ECG Confirmed by MD GREEN QARAB ([id number]) on 10/21/2024 12:07:04 PM Test Reason : Location : 636 : [facility] Overread By : MD GREEN QARAB Edited By : MD GREEN QARAB Referred By : , Acquired by : Rolan arroyo [facility] HISTORY PHYSICALon HISTORY PHYSICAL HNO ID: [id number] Author: ESTEPHANIA LARSEN APRN.SUPERINTENDENT [employer]LECTRIC [employer] Service: ? Author Type: Nurse Practitioner Type: H&P Filed: 10/20/2024 11:23 Note Text: [facility] HISTORY AND PHYSICAL EXAMINATION SERVICE DATE: 10/20/2024 SERVICE TIME: 11:20 AM PRIMARY CARE PHYSICIAN: Sergio Landaverde MD Assessment Patient has the following medical conditions which may affect marlys-operative course: Age-related osteoporosis without current pathological fracture Assessment: receiving Reclast Hydronephrosis Assessment: hx Creatinine Date Value Ref Range Status 09/22/2024 0.77 0.58 - 0.96 mg/dL Final 07/02/2024 0.73 0.58 - 0.96 mg/dL Final 12/31/2023 0.86 0.58 - 0.96 mg/dL Final 07/04/2023 0.79 0.58 - 0.96 mg/dL 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 Rituximab/bendamustine x 6 cycles. 07/2021-01/2022 (near CR) ANESTHESIA FINDINGS: Intubation History: No history of difficult intubation Significant Anesthesia Considerations: none Airway History: No history of difficult airway Gaston Activity Status Index: METS: Climb a flight of stairs or walk up a hill (5.50 METs) DASI Score: 5.5 Patient denies any chest pain or undue shortness of breath with the above physical activity. Clinical Frailty Scale: 3. Well, with treated comorbid disease STOP-Bang Score: Denies snoring loudly Denies feeling tired, fatigued, or sleepy during the daytime Has not been observed to stop breathing or choking/gasping during sleep Denies having high blood pressure BMI less than or equal to 35 kg/m2 Patient 50 years old or younger Does not have a large neck Non-male patient STOP-Bang Score: 0 [id number] Score: Age: <65 Sex: female CHF history: No Hypertension history: No Stroke/TIA/thromboembolism history: No Vascular disease history: No Diabetes history: No [id number] Score: 1 ARISCAT Score: Age: 51-80 Preoperative SpO2: >=96% Respiratory infection in the last month: No Preoperative anemia: No Surgical incision: peripheral Duration of surgery: >3 hrs Emergency procedure: No ARISCAT Score: 26 I - PHYSICAL EVALUATION AIRWAY Patient intubated: No. Tracheostomy tube not present Mallampati: I. TM distance: >3 FB. Neck ROM: full ROM without neurological symptoms. Mouth opening: adequate. Short neck: no. Thick neck: no [place] present: no Lip Bite Test: I Microretrognathia/Micronag thia/Recessed Chin: No DENTAL Dental findings: teeth intact. II - ANESTHESIA PLAN Anesthetic Plan: other Beta Alexandr Monitoring Plan Post Procedure Analgesic Plan Prepared for Surgery: optimally prepared for surgery. CONSULTS: Patient does not require consults for optimization at this time Planned Anesthetic: other anesthesia choice The Following Tests/Procedures Have Been Initiated: Orders Placed This Encounter MAGNESIUM ORAL Sig: Take by mouth. VITAMIN K2 ORAL Sig: Take by mouth. REASON FOR VISIT: Josephine Renee is a 59 year old female who is scheduled for Procedure(s): LAPAROSCOPIC HYSTERECTOMY TOTAL FOR UTERUS 250 G OR LESS W/REMOVAL TUBE(S) AND/OR OVARY(S) (Bilateral) INTRAOPERATIVE ID OF SENTINEL LYMPH NODE(S) INCL'D INJECTION OF NON-RAD DYE WHEN PERFORMED (Pending) at the request of Frank Chawla MD for consultation. My final recommendation will be communicated back to the requesting physician by way of shared medical record or letter. Subjective The patient has the following: COVID-19 Immunization Status Current Care Gaps Covid-19 Vaccine (2023- season) Overdue since 02/17/2024 08/28/2023 Imm Admin: COVID-19 vaccine, age 12+ yr (MODERNA) 02/27/2022 Imm Admin: COVID-19 vaccine, age 12+ yr, bivalent (PFIZER-BIONTECH) 08/03/2021 Imm Admin: COVID-19 original vaccine, full dose, monovalent (MODERNA) Only the first 3 history entries have been loaded, but more history exists. CHIEF COMPLAINT: Pre-op exam HPI: Josephine Renee is a 59 year old seen for PAC due to scheduled above surgery because of endometrial CA. 09/22/2024, Dr. Vaughn HPI: Ms. Renee is a 59 year old female who has a past medical history of Breast mass, left (2019) and Depression. On 09/26/2019, patient was diagnosed with follicular lymphoma after presenting with abdominal swelling and pain. She was referred to Dr. Hill for management. Recently, she was found to have a uterine polyp and underwent a DANDC, which revealed grade 1 endometrial cancer. She is postmenopausal and has a history of laparoscopic exploratory surgery for infertility, with no findings of endometriosis. She denies current use of maintenance medications for lymphoma and is not on blood thinners. Family history is significant for pancreatic cancer in her father and probable uterine cancer in her mother. She reports having undergone genetic testing at [facility] (more content not included)... Normal [facility] MISMATCH REPAIR PROTEINS BY IHCon 10-14-2024 AP BIOMARKER DISCLAIMER Normal [facility] Comment on above: Order Comment: Speci men Type: FORMALIN-FIXED PARAFFIN-EMBEDDED TISSUE SPECIMEN Ordering Facility: AP Outside Review Address: , , Result Comment: Yomi Stiles Test (LDT) Disclaimer: Performance characteristics of immunohistochemical, immunofluorescent, and chromogenic in-situ hybridization tests have been determined by the performing laboratory within [facility] Pathology and Laboratory Medicine Department ([facility], [facility], [facility], [facility], [facility], [facility], or [facility]) in a manner consistent with CLIA requirements. One or more of these tests may not have been cleared or approved by the FDA. RT-PLM is regulated under CLIA as qualified to perform high-complexity testing. These tests are used for clinical purposes. These should not be regarded as investigational or for research. Positive and negative controls stain appropriately. Performed By: #### L [id number] #### [facility] CLIA [id number] [facility] [address] AP BLOCK ID [id number] Normal [facility] Comment on above: Order Comment: Speci men Type: FORMALIN-FIXED PARAFFIN-EMBEDDED TISSUE SPECIMEN Ordering Facility: Outside Review Address: , , Performed By: #### L [id number] #### [facility] CLIA [id number] [address] [place] [address] BIOMARKER INTERPRETATION COMMENT AND REFERENCE RANGE Normal [facility] Comment on above: Order Comment: Speci men Type: FORMALIN-FIXED PARAFFIN-EMBEDDED TISSUE SPECIMEN Ordering Facility: Outside Review Address: , , Result Comment: Inta ct expression of MMR (mismatch repair) proteins by immunohistochemistry is highly correlated with a microsatellite stable result by MSI (microsatellite instability) PCR analysis, and the results from these tests are viewed as clinically equivalent by the FDA. This result excludes at least 90-95% of Davis syndrome. These tests are an imperfect screen because some mutations may not produce loss of immunohistochemical expression. MSI molecular testing can be performed upon request in cases with a high clinical suspicion and appropriate family history. In a phase 2 study of patients with metastatic carcinoma, Sue et al. ([facility] 2015;372:2509-20) reported that clinical benefit of pembrolizumab, an anti-programmed 1 (PD-1) immune checkpoint inhibitor, was predicted by the tumor's mismatch repair status; mismatch repair deficient (dMMR) tumors are more responsive to PD-1 blockade than mismatch repair proficient tumors. Pembrolizumab is FDA-approved for treating adult and pediatric patients with unresectable or metastatic solid tumors that display microsatellite instability-high (MSI-H) by PCR assay or dMMR by immunohistochemistry (IHC). The FDA does not distinguish between PCR and IHC-based assays, as these are considered equivalent and complimentary tests. As clinically indicated, and in the appropriate setting of genetic counseling with informed patient consent, further genetic testing may be helpful. For more information or questions about this result, please call the [facility] for Personalized [employer] at [phone]. Performed By: #### L [id number] #### [facility] CLIA [id number] [address] [place] [address] [place] BIOMARKER METHOD Immunohistochemistry was performed on formalin-fixed paraffin-embedded tissue using the FDA-approved MMR IHC Panel with the following clones: MLH1 (clone M1 mouse monoclonal); PMS2 (A16-4 mouse monoclonal); MSH2 ([id number] mouse monoclonal); MSH6 (SP93 rabbit monoclonal). The OptiView DAB IHC Detection Kit is used with MLH1, MSH2, and MSH6, and the OptiView DAB IHC Detection Kit with OptiView Amplification Kit is used for PMS2 detection. [[email or web address], [place]] Normal [facility] Comment on above: Order Comment: Speci men Type: FORMALIN-FIXED PARAFFIN-EMBEDDED TISSUE SPECIMEN Ordering Facility: AP Outside Review Address: , , Performed By: #### L [id number] #### [facility] CLIA [id number] [address] [place] [address] OF [facility] CASE NUMBER MMR [id number] Normal [facility] Comment on above: Order Comment: Speci men Type: FORMALIN-FIXED PARAFFIN-EMBEDDED TISSUE SPECIMEN Ordering Facility: AP Outside Review Address: , , Performed By: #### L [id number] #### [facility] CLIA [id number] [address] [place] [address] FINAL PERFORMING LAB Normal [facility] Comment on above: Order Comment: Speci men Type: FORMALIN-FIXED PARAFFIN-EMBEDDED TISSUE SPECIMEN Ordering Facility: AP Outside Review Address: , , Result Comment: Diag nostic interpretation performed at: [facility], [address] [place] [id number] CLIA# [id number] Financial Manager: Darvin Ortiz MD Electronically signed out by: Jackelyn Pagan MD Performed By: #### L [id number] #### [facility] CLIA [id number] [address] [place], [place] [id number] [facility] OF [place] Order Comment: Speci men Type: TISSUE SPECIMEN [facility]ing Facility: [facility] Address: [address] [place] [address] Result Comment: Diag nostic interpretation performed at: [facility], [facility]0 [place] [id number] CLIA# [id number] Financial Manager: Darvin Ortiz MD Performed By: #### A PMOL #### [facility] CLIA [id number] [address] [place] [address] [place] FIXATIVE Not Provided Normal [facility] Comment on above: Order Comment: Speci men Type: FORMALIN-FIXED PARAFFIN-EMBEDDED TISSUE SPECIMEN Ordering Facility: AP Outside Review Address: , , Performed By: #### L [id number] #### [facility] CLIA [id number] [address] [place] [address] [place] MLH1 IMMUNOHISTOCHEMICAL RESULTS Normal/Intact Nuclear Expression Normal [facility] Comment on above: Order Comment: Speci men Type: FORMALIN-FIXED PARAFFIN-EMBEDDED TISSUE SPECIMEN Ordering Facility: AP Outside Review Address: , , Performed By: #### L [id number] #### [facility] CLIA [id number] [address] [place] [address] [place] MLH1 PROMOTER METHYLATION ASSAY No Normal [facility] Comment on above: Order Comment: Speci men Type: FORMALIN-FIXED PARAFFIN-EMBEDDED TISSUE SPECIMEN Ordering Facility: AP Outside Review Address: , , Performed By: #### L [id number] #### [facility] CLIA [id number] [address] [place] [address] [place] MMR INTERPRETATION Proficient (Microsat ellite Stable) Normal [facility] Comment on above: Order Comment: Speci men Type: FORMALIN-FIXED PARAFFIN-EMBEDDED TISSUE SPECIMEN Ordering Facility: AP Outside Review Address: , , Performed By: #### L [id number] #### [facility] CLIA [id number] [address] [place] [address] [place] MSH2 IMMUNOHISTOCHEMICAL RESULTS Normal/Intact Nuclear Expression Normal [facility] Comment on above: Order Comment: Speci men Type: FORMALIN-FIXED PARAFFIN-EMBEDDED TISSUE SPECIMEN Ordering Facility: AP Outside Review Address: , , Performed By: #### L [id number] #### [facility] CLIA [id number] [address] [place] [address] [place] MSH6 IMMUNOHISTOCHEMICAL RESULTS Normal/Intact Nuclear Expression Normal [facility] Comment on above: Order Comment: Speci men Type: FORMALIN-FIXED PARAFFIN-EMBEDDED TISSUE SPECIMEN Ordering Facility: AP Outside Review Address: , , Performed By: #### L [id number] #### [facility] CLIA [id number] [address] [place] [address] [place] PMS2 IMMUNOHISTOCHEMICAL RESULTS Normal/Intact Nuclear Expression Normal [facility] Comment on above: Order Comment: Speci men Type: FORMALIN-FIXED PARAFFIN-EMBEDDED TISSUE SPECIMEN Ordering Facility: AP Outside Review Address: , , Performed By: #### L [id number] #### [facility] CLIA [id number] [address] [place] [address] [place] TUMOR TYPE MMR Primary Uterine Endometrial Adenocarcinoma Normal [facility] Comment on above: Order Comment: Speci men Type: FORMALIN-FIXED PARAFFIN-EMBEDDED TISSUE SPECIMEN Ordering Facility: AP Outside Review Address: , , Performed By: #### L [id number] #### [facility] CLIA [id number] [address] [place] [address] [place] OUTSIDE SURG PATH SLIDE REVI EWon 10-14-2024 AP DISCLAIMER Normal [facility] Comment on above: Order Comment: Speci jeanne Type: TISSUE SPECIMEN [facility] Facility: [facility] Address: [address] [place], [place] [id number] Result Comment: Yomi dimas Developed Test (LDT) Disclaimer: Performance characteristics of immunohistochemical, immunofluorescent, and chromogenic in-situ hybridization tests have been determined by the performing laboratory within [facility] Karo Nelly [facility] Pathology and Laboratory Medicine Department ([facility], [facility], [facility], [facility], [facility], [facility], or [facility]) in a manner consistent with CLIA requirements. One or more of these tests may not have been cleared or approved by the FDA. RT-PLM is regulated under CLIA as qualified to perform high-complexity testing. These tests are used for clinical purposes. These should not be regarded as investigational or for research. Positive and negative controls stain appropriately. Performed By: #### A PMOL #### [facility] [id number] [address] [place] [address] OF [facility] CASE REPORT Normal [facility] Comment on above: Order Comment: Speci men Type: TISSUE SPECIMEN [facility] Facility: [facility] Address: [address] [place] [address] Result Comment: [facility] Pathology Report Case: [id number] Authorizing Provider: Frank Vaughn MD Collected: 10/14/2024 11:10 AM Ordering Location: [facility] Received: 10/14/2024 11:09 AM [facility] Pathologist: Karo Gonzales MD Specimen: Slide(s), 5 SLIDES [id number] Performed By: #### A PMOL #### [facility] [id number] [address] [place] [address] DIAGNOSIS COMMENT Submitted immunohistochemistry shows the tumor cells are positive for ER, negative for p16 and have wild-type p53 staining. DNA MMR stains have not been performed. Normal [facility] Comment on above: Order Comment: Speci men Type: TISSUE SPECIMEN [facility] Facility: [facility] Address: [address] [place] [address] Performed By: #### A PMOL #### [facility] [id number] [address] [place] [address] FINAL DIAGNOSIS Normal [facility] Comment on above: Order Comment: Mandyi men Type: TISSUE SPECIMEN [facility] Facility: [facility] Address: [address] [place] [address] Result Comment: Revi ew of outside slides Endometrium, curettage - Endometrioid carcinoma, FIGO grade 1, see comment at 1643 EDT Performed By: #### A PMOL #### [facility] [id number] [address] [place] [address] [place] Elzbieta 10-01-2024 CNPN Telephone (HEMAMN) -- JOSEPHINE RENEE ([id number]) 1965 F Date Time Provider Department 10/01/24 KARO HILL During your visit today, we recorded the following information about you: Palacio Pam 10/01/2024 10:56 AM Signed Josephine Renee is calling Karo Hill MD today regarding 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 Patient is requesting a call back from the care team. Patient has a upcoming surgery with OBGYN Oncology. Patient would like to speak with the care team before this happens on 10/30/24. Duration of symptoms: N/A Requesting response back: call on cell [phone] (home) [phone] (cell) Pam Hakeem October 01, 2024 Divya Hawley RN 10/01/2024 3:41 PM Signed Left message requesting return call Divya Hawley RN 10/01/2024 4:03 PM Signed Spoke with Ms. Renee who states she is going to have a radical hysterectomy for endometrial cancer. During the procedure she will have a groin lymph node removed for immediate biopsy. Ms. Renee is concerned that the provider performing the procedure will mistake her lymphoma cells for endometrial cancer that has metastasized. I encouraged Ms. Renee to reach out to Dr. Vaughn with her concerns so that he can explain to her how he will diagnose what type of cancer this is during the procedure. She is aware that this information is being forwarded to Dr. Hill and someone from the team will get back to her if Dr. Hill has any further recommendations. Allergies As of Date: 10/01/2024 Noted Allergy Reaction SULFA (SULFONAMIDE ANTIBIOTICS) 12/26/2020 2 - Rash 14 - Other: See Comments SULFAMETHOXAZOLE-TRIMETHOP RIM 06/25/2019 4 - Hives 2 - Rash PAROXETINE 07/19/2021 10 - Anaphylaxis 14 - Other: See Comments TRIMETHOPRIM 12/26/2020 2 - Rash 14 - Other: See Comments Date Reviewed: 09/22/2024 Reviewed by: Christiana Gabriel OCCA - Fully Assessed Reason for Visit: Warehouse Helper - Other [3602] Cmt: Upcoming Surgery Prescriptions as of 10/01/2024 - Biotin 10 mg tab Take by mouth. - calcium carbonate (CALTRATE) 600 mg calcium (1,500 mg) tab Take by mouth. - Cholecalciferol, Vitamin D3, 25 mcg (1,000 unit) cap Take by mouth. - zoledronic acid (RECLAST) 5 mg/100 mL PREMIX piggyback Inject 5 mg intravenously every year. - DULoxetine (CYMBALTA) 20 mg capsule Take by mouth. Problem List As Of Date 10/01/2024 Noted Resolved Grade 2 follicular lymphoma of lymph nodes of m*08/02/2021 Encounter Status:Closed by DIVYA HAWLEY on 10/01/24 Normal [facility] XR CHEST 2V FRONTAL/LATon XR CHEST 2V FRONTAL/LAT * * *Final Report* * * DATE OF EXAM: Sep 26 2024 9:49AM [id number] - XR CHEST 2V FRONTAL/LAT / PROCEDURE REASON: multiple diagnoses * * * * Physician Interpretation * * * * EXAMINATION: CHEST RADIOGRAPH (2 VIEW FRONTAL and LATERAL) CLINICAL HISTORY: Endometrial cancer (HCC) Preop examination MQ: XC2_6 EXAM DATE/TIME: 09/26/2024 9:49 AM COMPARISON: 01/01/2024 CT RESULT: Lines, tubes, and devices: None. Lungs and pleura: No consolidation. No lung mass. No pleural effusion. No pneumothorax. Cardiomediastinal silhouette: Normal cardiomediastinal silhouette. Bones and soft tissues: Unremarkable. IMPRESSION: No acute radiographic abnormality. Shuttle Fixer: SARA Transcribe Date/Time: Sep 26 2024 2:45P Dictated by : IRIS JUNE MD This examination was interpreted and the report reviewed and electronically signed by: IRIS JUNE MD on Sep 26 2024 2:47PM EST [id number] Normal [facility] XR Chest PA and Lateralon IMPRESSION: No acute radiographic abnormality. Shuttle Fixer: SARA Transcribe Date/Time: Sep 26 2024 2:45P Dictated by : IRIS JUNE MD This examination was interpreted and the report reviewed and electronically signed by: IRIS JUNE MD on Sep 26 2024 2:47PM EST DIVISION OF RADIOLOGY * * *Final Report* * * DATE OF EXAM: Sep 26 2024 9:49AM [id number] - XR CHEST 2V FRONTAL/LAT / PROCEDURE REASON: multiple diagnoses * * * * Physician Interpretation * * * * EXAMINATION: CHEST RADIOGRAPH (2 VIEW FRONTAL & LATERAL) CLINICAL HISTORY: Endometrial cancer (HCC) Preop examination MQ: XC2_6 EXAM DATE/TIME: 09/26/2024 9:49 AM COMPARISON: 01/01/2024 CT RESULT: Lines, tubes, and devices: None. Lungs and pleura: No consolidation. No lung mass. No pleural effusion. No pneumothorax. Cardiomediastinal silhouette: Normal cardiomediastinal silhouette. Bones and soft tissues: Unremarkable. DIVISION OF RADIOLOGY Provider, [facility] - 09/26/2024 * * *Final Report* * * DATE OF EXAM: Sep 26 2024 9:49AM [id number] - XR CHEST 2V FRONTAL/LAT / PROCEDURE REASON: multiple diagnoses * * * * Physician Interpretation * * * * EXAMINATION: CHEST RADIOGRAPH (2 VIEW FRONTAL & LATERAL) CLINICAL HISTORY: Endometrial cancer (HCC) Preop examination MQ: XC2_6 EXAM DATE/TIME: 09/26/2024 9:49 AM COMPARISON: 01/01/2024 CT RESULT: Lines, tubes, and devices: None. Lungs and pleura: No consolidation. No lung mass. No pleural effusion. No pneumothorax. Cardiomediastinal silhouette: Normal cardiomediastinal silhouette. Bones and soft tissues: Unremarkable. IMPRESSION IMPRESSION: No acute radiographic abnormality. Shuttle Fixer: SARA Transcribe Date/Time: Sep 26 2024 2:45P Dictated by : IRIS JUNE MD This examination was interpreted and the report reviewed and electronically signed by: IRIS JUNE MD on Sep 26 2024 2:47PM EST [facility] Radiology Study observation (narrative) [facility] XR Chest PA and LateralOrder ed By: Ccf Provider on 09-26-2024 [facility] CNPNon 09-23-2024 CNPN Telephone (WHQ) -- JOSEPHINE RENEE ([id number]) 1965 F Date Time Provider Department 09/23/24 FRANK VAUGHN Q During your visit today, we recorded the following information about you: Ro Marin 09/23/2024 8:46 AM Signed Called patient and she said she will call back to schedule. ] Ro WEIR Allergies As of Date: 09/23/2024 Noted Allergy Reaction SULFA (SULFONAMIDE ANTIBIOTICS) 12/26/2020 2 - Rash 14 - Other: See Comments SULFAMETHOXAZOLE-TRIMETHOP RIM 06/25/2019 4 - Hives 2 - Rash PAROXETINE 07/19/2021 10 - Anaphylaxis 14 - Other: See Comments TRIMETHOPRIM 12/26/2020 2 - Rash 14 - Other: See Comments Date Reviewed: 09/22/2024 Reviewed by: Christiana Gabriel OCCA - Fully Assessed Prescriptions as of 09/23/2024 - Biotin 10 mg tab Take by mouth. - calcium carbonate (CALTRATE) 600 mg calcium (1,500 mg) tab Take by mouth. - Cholecalciferol, Vitamin D3, 25 mcg (1,000 unit) cap Take by mouth. - zoledronic acid (RECLAST) 5 mg/100 mL PREMIX piggyback Inject 5 mg intravenously every year. - DULoxetine (CYMBALTA) 20 mg capsule Take by mouth. Problem List As Of Date 09/23/2024 Noted Resolved Grade 2 follicular lymphoma of lymph nodes of m*08/02/2021 Encounter Status:Closed by RO MARIN on 09/23/24 Normal [facility] ACTIVATED PARTIAL THROMBOPLA STIN TIMEon 09-22-2024 aPTT Coag (PPP) [Time] 28.8 s Cl [facility] CA 125on 09-22-2024 Cancer Ag 125 Qn 11 [arb'U]/mL NINF - 39 U/mL [facility] Comment on above: CA 125 test methodol ogy used is the Electrochemiluminescence Immunoassay by [facility]. Results obtained with different methods or kits cannot be used interchangeably. The reference interval is based on the 95th percentile of 240 apparently healthy premenopausal and postmenopausal women. At a cutoff value of 65 U/mL, the test sensitivity to distinguish ovarian carcinoma (FIGO stage I to IV) versus benign gynecological disease is 79%, with a specificity of 82%. Reference: Cancer Antigen 125 (CA 125 II) [package insert V 1.0 [place]ian]. [facility], [place], [place] (March 2015) CBC panel Auto (Bld)on 09-22 Erythrocyte distribution width (RBC) [Ratio] 11.9 % 11.5 - 15.0 % [facility] Hematocrit (Bld) [Volume fraction] 41.5 % 36.0 - 46.0 % [facility] Hemoglobin (Bld) [Mass/Vol] 13.7 g/dL 11.5 - 15.5 g/dL [facility] Interpretation and review of laboratory results Abnormal [facility] MCH (RBC) [Entitic mass] 33.3 pg 26.0 - 34.0 pg [facility] MCHC (RBC) [Mass/Vol] 33 g/dL 30.5 - 36.0 g/dL [facility] MCV (RBC) [Entitic vol] 100.7 fL High 80.0 - 100.0 fL [facility] Nucleated RBC (Bld) [#/Vol] NINF [facility] Platelet mean volume (Bld) [Entitic vol] 9.5 fL 9.0 - 12.7 fL [facility] Platelets (Bld) [#/Vol] 311 10*3/uL [facility] RBC (Bld) [#/Vol] 4.12 10*6/uL 3.90 - 5.2 0 m/uL [facility] WBC (Bld) [#/Vol] 5.02 10*3/uL [facility] Erythrocyte distribution width (RBC) [Ratio] 11.9 % Normal 11.5-15.0 [facility] Comment on above: Order Comment: Speci men Type: TISSUE SPECIMEN Ordering Facility: [facility] Address: [address] [place] [address] Performed By: #### A PMOL #### [facility] [id number] [address] [place] [address] [place] Hematocrit (Bld) [Volume fraction] 41.5 % Normal 36.0-46.0 [facility] Comment on above: Order Comment: Speci men Type: TISSUE SPECIMEN Ordering Facility: [facility] Address: [address] [place] [address] Performed By: #### A PMOL #### [facility] [place] [id number] [address] [place] [address] [place] Hemoglobin (Bld) [Mass/Vol] 13.7 g/dL Normal 11.5-15.5 [facility] Comment on above: Order Comment: Speci men Type: TISSUE SPECIMEN Ordering Facility: [facility] Address: [address] [place] [address] Performed By: #### A PMOL #### [facility] [id number] [address] [place] [address] [place] MCH (RBC) [Entitic mass] 33.3 pg Normal 26.0-34.0 [facility] Comment on above: Order Comment: Speci men Type: TISSUE SPECIMEN Ordering Facility: [facility] Address: [address] [place] [address] Performed By: #### A PMOL #### [facility] [id number] [address] [place] [address] [place] MCHC (RBC) [Mass/Vol] 33.0 g/dL Normal 30.5-36.0 [facility] Comment on above: Order Comment: Speci men Type: TISSUE SPECIMEN Ordering Facility: [facility] Address: [address] [place] [address] Performed By: #### A PMOL #### [facility] [id number] [address] [place] [address] [place] MCV (RBC) [Entitic vol] 100.7 fL High 80.0-100.0 [facility] Comment on above: Order Comment: Speci men Type: TISSUE SPECIMEN Ordering Facility: [facility] Address: [address] [place] [address] Performed By: #### A PMOL #### [facility] [place] [id number] [address] [place] [address] [place] Nucleated RBC (Bld) [#/Vol] 10*3/uL Normal <0.01 [facility] Comment on above: Order Comment: Speci men Type: TISSUE SPECIMEN Ordering Facility: [facility] Address: [address] [place] [address] Performed By: #### A PMOL #### [facility] [place] [id number] [address] [place] [address] [place] Platelet mean volume (Bld) [Entitic vol] 9.5 fL Normal 9.0-12.7 [facility] Comment on above: Order Comment: Speci men Type: TISSUE SPECIMEN Ordering Facility: [facility] Address: [address] [place] [address] Performed By: #### A PMOL #### [facility] [id number] [address] [place] [address] [place] Platelets (Bld) [#/Vol] 311 10*3/uL Normal 150-400 [facility] Comment on above: Order Comment: Speci men Type: TISSUE SPECIMEN Ordering Facility: [facility] Address: [address] [place] [address] Performed By: #### A PMOL #### [facility] [id number] [address] [place] [address] [place] RBC (Bld) [#/Vol] 4.12 10*6/uL Normal 3.90-5.20 [facility] Comment on above: Order Comment: Speci men Type: TISSUE SPECIMEN Ordering Facility: [facility] Address: [address] [place] [address] Performed By: #### A PMOL #### [facility] [place] [id number] [address] [place] [address] [place] WBC (Bld) [#/Vol] 5.02 10*3/uL Normal 3.70-11.00 [facility] Comment on above: Order Comment: Speci men Type: TISSUE SPECIMEN Ordering Facility: [facility] Address: [address] [place] [address] Performed By: #### A PMOL #### [facility] [id number] [address] [place] [address] [place] CNOVSPon 09-22-2024 CNOVSP Visit (SP) Office (Aditi VALADEZ) -- JOSEPHINE RENEE ([id number]) 1965 F Date Time Provider Department 09/22/24 1:00 PM FRANK VAUGHN During your visit today, we recorded the following information about you: Temperature Pulse Blood pressure Weight 98.7 degrees 69/minute 135/75 55 kg Height 1.613 m Frank Vaughn MD 09/22/2024 6:24 PM Signed DATE OF SERVICE: 09/22/2024 PROBLEM: Josephine Renee is a consult from for evaluation of endometrial cancer. HPI: Ms. Renee is a 59 year old female who has a past medical history of Breast mass, left (2019) and Depression. On 09/26/2019, patient was diagnosed with follicular lymphoma after presenting with abdominal swelling and pain. She was referred to Dr. Hill for management. Recently, she was found to have a uterine polyp and underwent a DANDC, which revealed grade 1 endometrial cancer. She is postmenopausal and has a history of laparoscopic exploratory surgery for infertility, with no findings of endometriosis. She denies current use of maintenance medications for lymphoma and is not on blood thinners. Family history is significant for pancreatic cancer in her father and probable uterine cancer in her mother. She reports having undergone genetic testing at [facility]. 1) History of lymphoma. 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 Diagnosed 07/2021. Rituximab/bendamustine x 6 cycles. 07/2021-01/2022 (near CR) 2) 08/26/2024 [facility] IMAGING: CT CHEST: No results found. CT ABD/PELVIS: No results found. LABS: Tumor Markers CA 125 CEA CA19-9 Latest Ref Rng AND Units <39 U/mL 0.0 - 2.9 ng/mL <36 U/mL 09/22/2024 11 07/18/2021 24 1.3 24 PATHOLOGY: No results found for: FINALDIAGNOS HISTORIES: PAST GYNECOLOGIC HISTORY: OB History Gravida0 Para0 Term0 Preterm0 AB0 Living0 SAB0 IAB0 Ectopic0 Multiple0 Live Births0 LMP: No LMP recorded. Patient is postmenopausal. Hormonal contraceptives: No. HRT use: No. History of abnormal pap: No. Last pap/HPV: 06/30/2019 PAST SURGICAL HISTORY Procedure Laterality Date BX OF BREAST; INCISIONAL Left 2020 needle biopsy PAST SURGICAL HISTORY OF Laproscopic exploratory surgery due to infertility PAST MEDICAL HISTORY Diagnosis Date Breast mass, left 2019 Depression FAMILY HISTORY Problem Relation Age of Onset No Known Problems Mother possible uterine cancer Pancreatic Cancer Father 90 Diabetes Sister Alcohol/Drug Brother other (TMJ) Brother Heart disease Maternal Grandmother No Known Problems Maternal Grandfather No Known Problems Paternal Grandmother Heart disease Paternal Grandfather Bipolar disorder Sister Alcohol/Drug Sister Family history of breast, ovarian, uterine or colon cancer: See above Family history of VTE: No SOCIAL HISTORY Social History Tobacco Use Smoking status: Never Smokeless tobacco: Never Vaping Use Vaping status: Never Used Substance Use Topics Alcohol use: Yes Drug use: Never Occupation: Marital Status: HEALTH MAINTENANCE: Last mammogram: 02/15/2022 Last colonoscopy: 07/09/2019 TRANSFUSION PREFERENCE: Are you willing to receive a blood transfusion/blood products? Yes Diagnostics Reviewed: Pathology -- Dilation and Curettage Pathology: Revealed a grade 1 uterine malignancy. OBJECTIVE: VITALS: BP 135/75 Pulse 69 Temp 37.1 ?C (98.7 ?F) Ht 161.3 cm (5' 3.5") Wt 55 kg (121 lb 4.1 oz) SpO2 100% BMI 21.14 kg/m? GENERAL: Patient is a well developed, well nourished female. She is alert, oriented, pleasant, and cooperative. SKIN: Color, texture, turgor normal. No rashes or lesions. LUNGS: Clear to auscultation bilaterally. HEART: Regular rate and rhythm, no murmurs. ABDOMEN: Abdomen soft, non-tender, no hepatosplenomegaly. PELVIC: Deferred LOWER EXTREMITIES: No pitting edema, no palpable cords, and no skin changes. Chief Catalyst Operator for exam: CLAYTON Ulloa September 22, 2024 1:13 PM ASSESSMENT/PLAN: 59 yo with new diagnosis of grade 1 endometrial cancer. 1. Family history of pancreatic cancer (Z80.0) Patient's father had pancreatic cancer. Discussed potential genetic predisposition and the possibility of genetic testing. - Review previous genetic testing results from [facility]. - Consider ordering comprehensive germline testing post-surgery if previous testing was limited. 2. Endometrial cancer (HCC) (C54.1) Diagnosed with grade 1 endometrial cancer following DANVA. Pathology report indicates estrogen receptor positivity. No evidence of metastasis at this time. Patient is postmenopausal. - Ordered CA-125 blood test to assess risk of metastasis. - Scheduled laparoscopic hysterectomy with bilateral salpingo-oophorectomy and sentinel lymph node biopsy in two weeks. - Discussed surgical procedure, including removal of uterus, cervix, fallopian tubes, ovaries, and sampling of sentinel lymp (more content not included)... Normal [facility] Elzbitea 09-22-2024 ARNOL Telephone (WHQ) -- VÍCTORJOSEPHINE SARMIENTO ([id number]) 1965 F Date Time Provider Department 09/22/24 FRANK VAUGHN During your visit today, we recorded the following information about you: Farnaz Boyle 09/22/2024 3:01 PM Signed Patient calling regarding the chest x-ray order that she just received. She would like to know what she needs to have this done and she needs to be careful with the amount of radiation she receives. Allergies As of Date: 09/22/2024 Noted Allergy Reaction SULFA (SULFONAMIDE ANTIBIOTICS) 12/26/2020 2 - Rash 14 - Other: See Comments SULFAMETHOXAZOLE-TRIMETHOP RIM 06/25/2019 4 - Hives 2 - Rash PAROXETINE 07/19/2021 10 - Anaphylaxis 14 - Other: See Comments TRIMETHOPRIM 12/26/2020 2 - Rash 14 - Other: See Comments Date Reviewed: 09/22/2024 Reviewed by: Christiana Gabriel OCCA - Fully Assessed Reason for Visit: Patient Question [1477] Prescriptions as of 09/24/2024 - Biotin 10 mg tab Take by mouth. - calcium carbonate (CALTRATE) 600 mg calcium (1,500 mg) tab Take by mouth. - Cholecalciferol, Vitamin D3, 25 mcg (1,000 unit) cap Take by mouth. - zoledronic acid (RECLAST) 5 mg/100 mL PREMIX piggyback Inject 5 mg intravenously every year. - DULoxetine (CYMBALTA) 20 mg capsule Take by mouth. Problem List As Of Date 09/22/2024 Noted Resolved Grade 2 follicular lymphoma of lymph nodes of m*08/02/2021 Encounter Status:Closed by FARNAZ BOYLE on 09/24/24 Normal [facility] CONFIRM BLOOD TYPEon 025 ABO group Nom (Bld) O [facility] Rh Nom (Bld) Positive [facility] ABO O Normal [facility] Comment on above: Order Comment: Speci men Type: TISSUE SPECIMEN Ordering Facility: [facility] Address: [address] [place] [address] [place] [address] Performed By: #### A PMOL #### [facility] [place] [id number] [address] [place] [address] [place] Rh Nom (Bld) Positive Normal [facility] Comment on above: Order Comment: Speci men Type: TISSUE SPECIMEN [facility] Facility: [facility] Address: [address] [place] [address] Performed By: #### A PMOL #### [facility] [place] [id number] [address] [place] [address] [place] Cancer Ag 125 Qnon Interpretation and review of laboratory results Normal [facility] Cancer Ag125 SerPl-aCncon Cancer Ag 125 Qn 11 [arb'U]/mL Normal <39 [facility] Comment on above: Order Comment: Speci men Type: TISSUE SPECIMEN [facility]ing Facility: [facility] Address: [address] [place] [address] Result Comment: CA 1 25 test methodology used is the Electrochemiluminescence Immunoassay by [facility]. Results obtained with different methods or kits cannot be used interchangeably. The reference interval is based on the 95th percentile of 240 apparently healthy premenopausal and postmenopausal women. At a cutoff value of 65 U/mL, the test sensitivity to distinguish ovarian carcinoma (FIGO stage I to IV) versus benign gynecological disease is 79%, with a specificity of 82%. Reference: Cancer Antigen 125 (CA 125 II) [package insert V 1.0 [place]]. [facility], [place], [place] (March 2015) Performed By: #### A PMOL #### [facility] [place] [id number] [address] [place] [address] [place] Comprehensive metabolic 2000 panelon 09-22-2024 Albumin [Mass/Vol] 4.5 g/dL 3.9 - 4.9 g/dL [facility] ALP [Catalytic activity/Vol] 81 U/L 34 - 123 U/L [facility] ALT [Catalytic activity/Vol] 15 U/L 7 - 38 U/L [facility] Anion gap [Moles/Vol] 11 mmol/L 8 - 15 mmol/L [facility] AST [Catalytic activity/Vol] 22 U/L 13 - 35 U/L [facility] Bilirubin [Mass/Vol] 0.4 mg/dL 0.2 - 1 .3 mg/dL [facility] Calcium [Mass/Vol] 9.6 mg/dL 8.5 - 10. 2 mg/dL [facility] Chloride [Moles/Vol] 106 mmol/L 98 - 10 7 mmol/L [facility] CO2 [Moles/Vol] 26 mmol/L 22 - 30 mmol/L [facility] Creatinine [Mass/Vol] 0.77 mg/dL 0.58 - 0.96 mg/dL [facility] GFR/1.73 sq M.predicted among non-blacks MDRD (S/P/Bld) [Vol rate/Area] 88 mL/min/{1.73_m2} - PINF [facility] Comment on above: Estimated Glomerular Filtration Rate (eGFR) is calculated using the 2020 CKD-EPI creatinine equation. This equation utilizes serum creatinine, sex, and age as parameters. The creatinine assay has traceable calibration to isotope dilution-mass spectrometry. Refer to KDIGO guidelines for clinical interpretation. In patients with unstable renal function, e.g. those with acute kidney injury, the eGFR may not accurately reflect actual GFR. Glucose [Mass/Vol] 85 mg/dL 74 - 99 mg/dL [facility] Comment on above: The [place] Diab[employer] s Association (ADA) provides guidance for cutoff values for fasting glucose and random glucose. The ADA defines fasting as no caloric intake for at least 8 hours. Fasting plasma glucose results between 100 to 125 mg/dL indicate increased risk for diabetes (prediabetes). Fasting plasma glucose results greater than or equal to 126 mg/dL meet the criteria for diagnosis of diabetes. In the absence of unequivocal hyperglycemia, results should be confirmed by repeat testing. In a patient with classic symptoms of hyperglycemia or hyperglycemic crisis, random plasma glucose results greater than or equal to 200 mg/dL meet the criteria for diagnosis of diabetes. Reference: Standards of Medical Care in Diabetes 2016, [place] [employer]. Diabetes Care. 2016.39(Suppl 1). Interpretation and review of laboratory results Abnormal [facility] Potassium [Moles/Vol] 3.5 mmol/L Low 3.7 - 5.1 mmol/L [facility] Protein [Mass/Vol] 7.4 g/dL 6.3 - 8.0 g/dL [facility] Sodium [Moles/Vol] 143 mmol/L 136 - 144 mmol/L [facility] Urea nitrogen [Mass/Vol] 14 mg/dL 7 - 21 mg/dL [facility] Albumin [Mass/Vol] 4.5 g/dL Normal 3.9-4.9 [facility] Comment on above: Order Comment: Speci men Type: BLOOD SPECIMENOrdering Facility: [facility] Address: [address] [place] [address] Performed By: #### 2 4323-8 ####[facility] [id number] [place] [address] [place] ALP [Catalytic activity/Vol] 81 U/L Normal 34-123 [facility] Comment on above: Order Comment: Speci men Type: BLOOD SPECIMENOrdering Facility: [facility] Address: [address] [place] [address] Performed By: #### 2 4323-8 ####[facility] [place] [id number] [place] [address] [place] ALT [Catalytic activity/Vol] 15 U/L Normal 7-38 [facility] Comment on above: Order Comment: Speci men Type: BLOOD SPECIMENOrdering Facility: [facility] Address: [address] [place] [address] Performed By: #### 2 4323-8 ####[facility] [id number] [place] [address] [place] Anion gap [Moles/Vol] 11 mmol/L Normal 8-15 [facility] Comment on above: Order Comment: Speci men Type: BLOOD SPECIMENOrdering Facility: [facility] Address: [address] [place] [address] Performed By: #### 2 4323-8 ####[facility] [id number] [place] [address] [place] AST [Catalytic activity/Vol] 22 U/L Normal 13-35 [facility] Comment on above: Order Comment: Speci men Type: BLOOD SPECIMENOrdering Facility: [facility] Address: [address] [place] [address] Performed By: #### 2 4323-8 ####[facility] [id number] [place] [address] [place] Bilirubin [Mass/Vol] 0.4 mg/dL Normal 0.2-1.3 [facility] Comment on above: Order Comment: Speci men Type: BLOOD SPECIMENOrdering Facility: [facility] Address: [address] [place] [address] Performed By: #### 2 4323-8 ####[facility] [id number] [place] [address] [place] Calcium [Mass/Vol] 9.6 mg/dL Normal 8.5-10.2 [facility] Comment on above: Order Comment: Speci men Type: BLOOD SPECIMENOrdering Facility: [facility] Address: [address] [place] [address] Performed By: #### 2 4323-8 ####[facility] [id number] [place] [address] [place] Chloride [Moles/Vol] 106 mmol/L Normal 98-107 [facility] Comment on above: Order Comment: Speci men Type: BLOOD SPECIMENOrdering Facility: [facility] Address: [address] [place] [address] Performed By: #### 2 4323-8 ####[facility] [id number] [place] [address] [place] CO2 [Moles/Vol] 26 mmol/L Normal 22-30 [facility] Comment on above: Order Comment: Speci men Type: BLOOD SPECIMENOrdering Facility: [facility] Address: [address] [place] [address] Performed By: #### 2 4323-8 ####[facility] [id number] [place] [address] [place] Creatinine [Mass/Vol] 0.77 mg/dL Normal 0.58-0.96 [facility] Comment on above: Order Comment: Adarsh angel Type: BLOOD SPECIMENOrdering Facility: [facility] Address: [address] [place] [address] Performed By: #### 2 4323-8 ####[facility] [id number] [place] [address] [place] Creatinine and Glomerular filtration rate.predicted panel (S/P/Bld) 88 mL/min/1.73m??? Normal >=60 [facility] Comment on above: Order Comment: Adarsh angel Type: BLOOD SPECIMENOrdering Facility: [facility] Address: [address] [place] [address] Result Comment: Danielle mated Glomerular Filtration Rate (eGFR) is calculated using the 2020 CKD-EPI creatinine equation. This equation utilizes serum creatinine, sex, and age as parameters. The creatinine assay has traceable calibration to isotope dilution-mass spectrometry. Refer to KDIGO guidelines for clinical interpretation. In patients with unstable renal function, e.g. those with acute kidney injury, the eGFR may not accurately reflect actual GFR. Performed By: #### 2 4323-8 ####[facility] [id number] [place] [address] [place] Glucose [Mass/Vol] 85 mg/dL Normal 74-99 [facility] Comment on above: Order Comment: Adarsh angel Type: BLOOD SPECIMENOrdering Facility: [facility] Address: [address] [place] [address] Result Comment: The [place] Diabetes Association (ADA) provides guidance for cutoff values for fasting glucose and random glucose. The ADA defines fasting as no caloric intake for at least 8 hours. Fasting plasma glucose results between 100 to 125 mg/dL indicate increased risk for diabetes (prediabetes). Fasting plasma glucose results greater than or equal to 126 mg/dL meet the criteria for diagnosis of diabetes. In the absence of unequivocal hyperglycemia, results should be confirmed by repeat testing. In a patient with classic symptoms of hyperglycemia or hyperglycemic crisis, random plasma glucose results greater than or equal to 200 mg/dL meet the criteria for diagnosis of diabetes. Reference: Standards of Medical Care in Diabetes 2016, [place] [employer]. Diabetes Care. 2016.39(Suppl 1). Performed By: #### 2 4323-8 ####[facility] [id number] [place] [address] [place] Potassium [Moles/Vol] 3.5 mmol/L Low 3.7-5.1 [facility] Comment on above: Order Comment: Speci men Type: BLOOD SPECIMENOrdering Facility: [facility] Address: [address] [place] [address] Performed By: #### 2 4323-8 ####[facility] [id number] [place] [address] [place] Protein [Mass/Vol] 7.4 g/dL Normal 6.3-8.0 [facility] Comment on above: Order Comment: Speci men Type: BLOOD SPECIMENOrdering Facility: [facility] Address: [address] [place] [address] Performed By: #### 2 4323-8 ####[facility] [id number] [place] [address] [place] Sodium [Moles/Vol] 143 mmol/L Normal 136-144 [facility] Comment on above: Order Comment: Speci men Type: BLOOD SPECIMENOrdering Facility: [facility] Address: [address] [place] [address] Performed By: #### 2 4323-8 ####[facility] [id number] [place] [address] [place] Urea nitrogen [Mass/Vol] 14 mg/dL Normal 7-21 [facility] Comment on above: Order Comment: Speci men Type: BLOOD SPECIMENOrdering Facility: [facility] Address: [address] [place] [address] Performed By: #### 2 4323-8 ####[facility] [id number] [place] [address] [place] No Panel Informationon 09-22 Interpretation and review of laboratory results Normal [facility] PT panel Coag (PPP)on 2024 INR Coag (PPP) [Relative time] 1 {INR} 0.9 - 1.3 [facility] Comment on above: Vitamin K Antagonist (VKA) Therapeutic Range: INR 2 to 3 (Target INR of 2.5) Note: For patients treated with VKA drugs, such as warfarin, the [place] [employer] 2012 Guideline recommends a therapeutic INR range of 2 to 3 (target INR of 2.5). This recommendation includes high-risk patients with antiphospholipid syndrome with previous arterial or venous thromboembolism, current-generation mechanical or bioprosthetic aortic heart valve replacement. Note: Patients with mechanical aortic valve replacement and additional risk factors for thromboembolic events (atrial fibrillation, previous thromboembolism, LV dysfunction, hypercoagulable conditions) or an older generation mechanical AVR (i.e., ball in-Cage) or any mechanical MVR should have a INR therapeutic range of 2.5 to 3.5 (target INR of 3). Titi GH, et al. Chest 2012, 141:7S-47S Angle RA, et al. [facility] 2017, 70: 252-289 PT Coag (PPP) [Time] 11 s [facility] INR Coag (PPP) [Relative time] 1.0 {INR} Normal 0.9-1.3 [facility] Comment on above: Order Comment: Speci men Type: TISSUE SPECIMEN [facility]: [address] [place] [address] Result Comment: Lissa min K Antagonist (VKA) Therapeutic Range: INR 2 to 3 (Target INR of 2.5) Note: For patients treated with VKA drugs, such as warfarin, the [place] [employer] 2012 Guideline recommends a therapeutic INR range of 2 to 3 (target INR of 2.5). This recommendation includes high-risk patients with antiphospholipid syndrome with previous arterial or venous thromboembolism, current-generation mechanical or bioprosthetic aortic heart valve replacement. Note: Patients with mechanical aortic valve replacement and additional risk factors for thromboembolic events (atrial fibrillation, previous thromboembolism, LV dysfunction, hypercoagulable conditions) or an older generation mechanical AVR (i.e., ball in-Cage) or any mechanical MVR should have a INR therapeutic range of 2.5 to 3.5 (target INR of 3). Titi GH, et al. Chest 2012, 141:7S-47S Angle RA et al. [facility] 2017, 70: 252-289 Performed By: #### A PMOL #### [facility] [id number] [address] [place] [address] [place] PT Coag (PPP) [Time] 11.0 s Normal 9.7-13.0 [facility] Comment on above: Order Comment: Speci men Type: TISSUE SPECIMEN [facility] Address: [address] [place] [address] Performed By: #### A PMOL #### [facility] [id number] [address] [place] [address] [place] TYPE AND SCREEN,30 DAYon ABO group Nom (Bld) O [facility] Blood group antibody screen Ql Negative [facility] Rh Nom (Bld) Positive [facility] ABO O Normal [facility] Comment on above: Order Comment: Speci men Type: TISSUE SPECIMEN [facility] Address: [address] [place] [address] Performed By: #### A PMOL #### [facility] [id number] [address] [place] [address] [place] Rh Nom (Bld) Positive Normal [facility] Comment on above: Order Comment: Speci men Type: TISSUE SPECIMEN [facility] Address: [address] [place] [address] Performed By: #### A PMOL #### [facility] [id number] [address] [place] [address] [place] aPTT Coag (PPP) [Time]on Unfractionated Hepar in Therapeutic Ranges: Standard Heparin Nomogram: 53 to 78 seconds (anti-Xa level of 0.3 to 0.7 U/ml) Low Dose/ACS Nomogram: 49 to 67 seconds (anti-Xa level of 0.2 to 0.5 U/ml) Stroke Treatment Nomogram: 49 to 67 seconds (anti-Xa level of 0.2 to 0.5 U/ml) Note: The APTT therapeutic range has been determined for the current lot of laboratory APTT reagent in use throughout the [facility]. [facility] aPTT PPPon 09-22-2024 aPTT Coag (PPP) [Time] 28.8 s Normal 23.0-32.4 Cl [facility] Comment on above: Order Comment: Speci men Type: TISSUE SPECIMEN [facility] Address: [address] [place] [address] Performed By: #### A PMOL #### [facility] [place] [id number] [address] [place] [address] [place] Elzbieta 09-16-2024 ARN[facility] Telephone (AVANI) -- JOSEPHINE RENEE ([id number]) 1965 F Date Time Provider Department 09/16/24 FRANK VAUGHN During your visit today, we recorded the following information about you: Kalli Larsen 09/16/2024 3:10 PM Signed Requested Pathology slides from [facility] ([phone]) are currently @ [facility]. Slides will be sent to [facility] once returned. Allergies As of Date: 09/16/2024 Noted Allergy Reaction BACTRIM (SULFAMETHOXAZOLE-TRIMETH* 06/25/2019 4 - Hives Date Reviewed: 07/02/2024 Reviewed by: Sary Cehema LPN - Fully Assessed Reason for Visit: Patient Navigation [0536] Cmt: Requested Pathology slides from [facility] ([phone]) are currently @ [facility]. Slides will be sent to [facility] once returned. Prescriptions as of 09/16/2024 - zoledronic acid (RECLAST) 5 mg/100 mL PREMIX piggyback Inject 5 mg intravenously every year. - DULoxetine (CYMBALTA) 20 mg capsule Take by mouth. 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 Telephone ([facility]) -- JOSEPHINE RENEE ([id number]) 1965 F Date Time Provider Department 09/15/24 FRANK VAUGHN [facility] During your visit today, we recorded the following information about you: Kalli Larsen 09/15/2024 8:52 AM Signed Received MIRELA from Patient AND faxed request for Pathology slides. Allergies As of Date: 09/15/2024 Noted Allergy Reaction BACTRIM (SULFAMETHOXAZOLE-TRIMETH* 06/25/2019 4 - Hives Date Reviewed: 07/02/2024 Reviewed by: Sary Cheema LPN - Fully Assessed Prescriptions as of 09/15/2024 - zoledronic acid (RECLAST) 5 mg/100 mL PREMIX piggyback Inject 5 mg intravenously every year. - DULoxetine (CYMBALTA) 20 mg capsule Take by mouth. 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 Vaughn on 09/22/24. I sent her a release of information to obtain Pathology slides from [facility]- ph.[phone]/fax. [phone] (08/26/24 [id number]). Ultrasound done @ [facility] p. [phone]/fax. [phone]. Allergies As of Date: 09/12/2024 Noted Allergy Reaction BACTRIM (SULFAMETHOXAZOLE-TRIMETH* 06/25/2019 4 - Hives Date Reviewed: 07/02/2024 Reviewed by: Sary Cheema LPN - Fully Assessed Reason for Visit: Patient Navigation [7831] Cmt: Spoke with Josephine Renee to confirm consult with Dr. Vaughn on 09/22/24. I sent her a release of information to obtain Pathology slides from [facility]- ph.[phone]/fax. [phone] (08/26/24 [id number]). Ultrasound done @ [facility] p. [phone]/fax. [phone]. Prescriptions as of 09/12/2024 - zoledronic acid (RECLAST) 5 mg/100 mL PREMIX piggyback Inject 5 mg intravenously every year. - DULoxetine (CYMBALTA) 20 mg capsule Take by mouth. 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 Vaughn. Pt is scheduled 09/22/24. Referral uploaded to scanned documents. Patient referred from [facility] in [place]. Allergies As of Date: 09/05/2024 Noted Allergy Reaction BACTRIM (SULFAMETHOXAZOLE-TRIMETH* 06/25/2019 4 - Hives Date Reviewed: 07/02/2024 Reviewed by: Sary Cheema LPN - Fully Assessed Reason for Visit: Appointment [186] Cmt: New Patient Prescriptions as of 09/08/2024 - zoledronic acid (RECLAST) 5 mg/100 mL PREMIX piggyback Inject 5 mg intravenously every year. - DULoxetine (CYMBALTA) 20 mg capsule Take by mouth. 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 Sergio Landaverde MD Status:REG [facility] Discharge Instructions Diet Discharge Diet: No restrictions DC O2, CPAP, BIPAP needs Home O2 Discharge instructions: No Dressing / Incision Discharge Activity: Return to Normal Activity, May Shower and May Take a Tub Bath (after 1 week) May resume sexual activity in: 1-2 weeks Weight Bearing Status: Weight bearing as tolerated Lifting Restrictions: none Dressing / Incision Call your doctor if you observe: Fever of 101 or Higher, Using more than 1 pad per hour, Shortness of breath and Uncontrolled pain Follow Up Care Please Follow Up With: Gisel Gilmore DO When: Call [phone] to schedule appointment. Test Results: Test results from this visit will be discussed in further detail at your follow-up appointment, if applicable. Discharge Plan Admission Primary Reason for Your Visit: hysteroscopy dilation and curettage Attending Provider: Gisel Gilmore Primary Care Provider: Sergio Landaverde Instructions Print Language: Djiboutian Discharge Orders/Prescriptions Prescriptions: New oxycodone-acetaminophen [Percocet] 5-325 mg tablet 1 tab PO Q4H PRN (Reason: pain) 7 Days Qty: 5 0RF naproxen 500 mg tablet 500 mg PO BID PRN (Reason: pain) Qty: 15 0RF Continued duloxetine [Cymbalta] 20 mg capsule,delayed release(DR/EC) 20 mg PO DAILY calcium citrate 250 mg calcium tablet 315 mg PO BID zoledronic avhl-jswklune-kehib [Reclast] 5 mg/100 mL piggyback 1 ea IV .YEARLY Rx Instructions: 1 ea intravenously; once per year vitamin K2 100 mcg capsule 100 mcg PO QDAY magnesium glycinate 100 mg magnesium capsule 200 mg PO DAILY cholecalciferol (vitamin D3) [Vitamin D3] 25 mcg (1,000 unit) Capsule 25 mcg PO DAILY cyanocobalamin (vitamin B-12) 1,000 mcg Lozenge 1,000 mcg PO QODAY omega-3 fatty acids Capsule 260 mg PO BID Referrals / Follow Up: Sergio Landaverde MD [Primary Care Provider] - Disposition Disposition (needs filled in before D/C Order can be placed): Home, Self Care 08/26/24 8587 Gisel Gilmore DO CC: Dr. Sergio Landaverde MD Signed Normal [facility] Immunohistochemical Stainson 08-26-2024 Immunohistochemical Stains Patient Age/Sex Location Account Attending Physician JOSEPHINE RENEE 59/F [facility] [id number] Danielle Winn Specimen: [id number] Received: 08/27/24 Status: LOUISAndry Mata Num: [id number] Spec Type: ENDOM BX/C Evan Dr: Dr. Gisel Gilmore DO HEADER OPERATION: HysterDanielle carrington, polypectomy PRE-OP DIAGNOSIS: Polyp of cervix TISSUE SUBMITTED: Endometrial curettings MICROSCOPIC DIAGNOSIS ENDOMETRIUM, CURETTAGE: * PRELIMINARY DIAGNOSIS: Malignant neoplasm * FINAL DIAGNOSIS: pending IHCs, to be reported in an addendum. COMMENT The slide/image was reviewed in intradepartmental consultation by Dr Edmar Luna (PRODUCTION OPERATIONS MANAGER pathology division, [facility]). MICROSCOPIC DESCRIPTION Slides are reviewed. These tests were developed and their performance characteristics determined by [facility]. They may not have been cleared or approved by the U.S. Food and Drug Administration. The FDA has determined that such clearance or approval is not necessary. The above immunohistochemical/dualIS H markers are ordered and reviewed by the Pathologist. GROSS DESCRIPTION The specimen is received in one container labeled with the patient's name and designated endometrial curettings. The specimen consists of multiple fragments of sánchez-brown soft tissue measuring in aggregate 3 x 1.5 x 0.3 cm. TE1. EH 08/27/24 CPT:23047,62748,27120j0 Patient Age/Sex Location Account Attending Physician JOSEPHINE RENEE 59/F [facility] [id number] Dr. Gisel Gilmore, Danielle ADDENDUM Addendum 2 Entered: 10/16/243568 This addendum is added to incorporate an outside pathology consultation report. The case was examined at [facility] by Dr. Gonzales (#[id number]) and the following diagnosis was rendered. Endometrium, curettage: Endometroid carcinoma, FIGO grade 1. See comment. COMMENT: Submitted immunohistochemistry shows the tumor cells are positive for ER, negative for p16 and have wild-type p53 staining. DNA MMR stains have not been performed. Please see complete above mentioned consultation report in EMR Addendum Signed (signature on file) Dr. Soha Leon MD 10/16/24 1007 Addendum 1 Entered: 09/10/24-9688 This addendum is to report the IHC results and FINAL DIAGNOSIS: ENDOMETRIUM, CURETTAGE: * ENDOMETRIOID ADENOCARCINOMA FIGO GRADE 1 - see note. Note: IHCs were performed. The tumor cells are positive for p16 and ER. The p53 is wild type. CEA focally highlights superficial epithelial surface. These findings support the above final diagnosis. Selected slide/image(s) were reviewed in intradepartmental consultation by Dr Edmar Luna (PRODUCTION OPERATIONS MANAGER pathology division, [facility]). All matched controls reacted appropriately. Addendum Signed (signature on file) Dr. Soha Leon MD 09/10/24 1119 Patient Age/Sex Location Account Attending Physician JOSEPHINE RENEE 59/F [facility] [id number] Danielle Winn Signed (signature on file) Dr. Soha Leon MD 09/03/24 1719 Normal [facility] Comment on above: Performed By: #### P ASHLYN ANTONV #### [facility] [address] [facility] [place], [address] MR/POSTOP.ANEsal 08-26-2024 MR/POSTOP.[facility] Medical Records Department [address] [place] [address] Anesthesia Postop Eval I 08/26/24 1434 MR#: [id number] Acct: [id number] Name: JOSEPHINE RENEE Rep #: [id number] : 1965 59 From: Klaudia Joseph PCP: Dr. Sergio Landaverde MD Status:REG [facility] Y Race: C Location: [place] [address] Anesthesia: Postop Eval I Current Vital Signs Temperature: 98.1 F Pulse Rate: 63 Blood Pressure: 108/83 Respiratory Rate: 16 Pulse Ox: 99 Oxygen Delivery Method: Room Air Assessment Airway patent: Yes Spontaneous unlabored respirations: Yes Mental status: Awake and Calm nausea: No Vomiting: No Anesthesia Complication: No Fluid Hydration Crystalloid volume administer (ml): 10 Total IV fluid infused: 10 Progress Note Anesthesia document: Postop Eval 1 completed: Yes 08/26/24 1435 Date Klaudia Wilcox Signature: Date CC: Signed Normal [facility] MR/[id number] 08-26-2024 MR/POSTOPAN2 [facility] Medical Records Department [address] [place] [address] Anesthesia Postop Eval II 08/26/241713 MR#: [id number] Acct: [id number] Name: JOSEPHINE RENEE Rep #: [id number] : 1965 59 From: Erick Rachel MD PCP: Dr. Sergio Landaverde MD Status:DEP [facility] Y Race: C Location: [facility] Anesthesia Postop Eval I Sum Postop Eval Completion status Anesthesia document: Postop Eval 1 completed: Yes Anesthesia Postop Eval I Summary Anesthesia Postop Eval I Summary: Anesthesia Postop Eval I: Assessment Summary Airway patent Yes 08/26/24 14:35 SADDLE AND SIDE WIRE STITCHER.GDOTT Spontaneous unlabored Yes 08/26/24 14:35 SADDLE AND SIDE WIRE STITCHER.GDOTT respirations Mental status Awake,Calm 08/26/24 14:35 SADDLE AND SIDE WIRE STITCHER.GDOTT nausea No 08/26/24 14:35 SADDLE AND SIDE WIRE STITCHER.GDOTT Vomiting No 08/26/24 14:35 SADDLE AND SIDE WIRE STITCHER.GDOTT Anesthesia Postop Eval I: Fluid Summary Crystalloid volume administer 10 08/26/24 14:35 SADDLE AND SIDE WIRE STITCHER.GDOTT (ml) Colloids volume administered ( ml) Blood Product volume administered (ml) Total IV fluid infused 10 08/26/24 14:35 SADDLE AND SIDE WIRE STITCHER.GDOTT Anesthesia Postop Eval I: Summary Notes Anesthesia Complication No 08/26/24 14:35 SADDLE AND SIDE WIRE STITCHER.GDOTT Anesthesia Complication Comment: Post-operative progress note Anesthesia: Postop Eval II Evaluation Mental status: Awake Pain Level: 0 nausea: No Vomiting: No Complications Anesthesia Complication: No 08/26/241713 Date Erick Rachel MD Cosigner Signature: Date CC: Signed [facility] Operative Reporton 5 Operative Report [facility] Medical Records Department [address] [place] [address] Operative Report 08/26/24 1423 MR#: [id number] Acct: [id number] Name: JOSEPHINE RENEE Rep #: [id number] : 1965 59 From: Gisel Gilmore DO PCP: Dr. Sergio Landaverde MD Status:[facility] Location: [place] [address] Problems Associated Problem List Diagnoses (1) Post-menopausal bleeding: Multi Select Codes Urinary/Genital Urinary/Genital CPT Codes: 58053 Hysteroscopic myomectomy Operative Report (Standard) Operative Information Date of Procedure: 08/26/24 Pre-Operative Diagnosis: thickened endometrium concerning for polyp or fibroid, postmenopausal bleeding Post-Operative Diagnosis: thickened endometrium concerning for polyp or fibroid, postmenopausal bleeding Surgery/Procedure Performed: hysteroscopy Dilation and curettage, myomectomy after school counselor: No Type of Anesthesia: MAC and Topical Anesth RN Documented Start/Stop Times: Operation Date: 08/26/24 13:05 Case Time Into Pre-Op 08/26/24 11:34 Out of Pre-Op 08/26/24 13:36 Anesthesia Start 08/26/24 13:39 Into Room 08/26/24 13:39 Procedure Start 08/26/24 13:53 Procedure End 08/26/24 14:21 Procedure Start Time: 13:53 Procedure Stop Time: 14:21 Select all DRAINS/GRAFTS/IMPLANTS that apply: None Estimated Blood Loss: 5cc Specimen collected: Yes Description of specimen(s) removed: endometrial fibroid Description of surgery: Patient was prepped and draped in a normal sterile fashion under MAC anesthesia. A weighted speculum was placed in the vagina and the anterior lip of the cervix was grasped with a single-tooth tenaculum. A paracervical block was placed with 1% lidocaine. Cervix was progressively dilated to allow passage of a 5 mm hysteroscope. The lining was fully visualized and noted to have a posterior uterine fibroid. Uterine sounded to 8 cm. Curettage was performed using the symphion device as well as a myomectomy removing the posterior uterine fibroid. The curetting's and fibroid were sent to pathology. All instruments were removed from the vagina and excellent hemostasis was noted. Patient was awoken and taken to recovery in stable condition. Surgical Findings: posterior uterine fibroid Complications Complications: No Admit VTE Documentation VTE Present on Admission: No VTE Mechan Device Prophylaxis: SCD's VTE Pharm Prophylaxis ordered?: No 08/26/24 1422 Cosigner Signature (if applicable): CC: Dr. Sergio Landaverde MD; Dr. Gisel Gilmore DO Signed Normal [facility] Surgery Specimen Level Dotty 08-26-2024 Surgery Specimen Level IV Patient Age/Sex Location Account Attending Physician JOSEPHINE RENEE 59/F [facility] [id number] Danielle Winn Specimen: [id number] Received: 08/27/24 Status: LARISA Mata Num: [id number] Spec Type: ENDOM BX/C Subm Dr: Dr. Gisel Gilmore DO HEADER OPERATION: Hysteroscopy, D C, polypectomy PRE-OP DIAGNOSIS: Polyp of cervix TISSUE SUBMITTED: Endometrial curettings MICROSCOPIC DIAGNOSIS ENDOMETRIUM, CURETTAGE: * PRELIMINARY DIAGNOSIS: Malignant neoplasm * FINAL DIAGNOSIS: pending IHCs, to be reported in an addendum. COMMENT The slide/image was reviewed in intradepartmental consultation by Dr Edmar Luna (PRODUCTION OPERATIONS MANAGER pathology division, [facility]). MICROSCOPIC DESCRIPTION Slides are reviewed. GROSS DESCRIPTION The specimen is received in one container labeled with the patient's name and designated endometrial curettings. The specimen consists of multiple fragments of sánchez-brown soft tissue measuring in aggregate 3 x 1.5 x 0.3 cm. TE1. EH 08/27/24 CPT:97820 Patient Age/Sex Location Account Attending Physician JOSEPHINE RENEE 59/F [facility] [id number] Danielle Winn Signed (signature on file) Dr. Soha Leon MD 09/03/24 1719 Normal [facility] Comment on above: Performed By: #### LAKIA GRAYSONUIV #### [facility] [address] [place], [address] CBC-Complete Blood Cnt No Di ffon 08-15-2024 Erythrocyte distribution width (RBC) [Ratio] 11.9 % Normal 11.6-14.6 [facility] Comment on above: Performed By: #### Kj TSPAT, L100.0500 #### [facility] [address] [place], [address] Hematocrit (Bld) [Volume fraction] 39.1 % Normal 37-47 [facility] Comment on above: Performed By: #### Kj TSPAT, L100.0500 #### [facility] [address] [place], [address] Hemoglobin (Bld) [Mass/Vol] 13.1 g/dL Normal 12.0-15.0 [facility] Comment on above: Performed By: #### Kj TSPAT, L100.0500 #### [facility] [address] [place], [address] MCH (RBC) [Entitic mass] 34.1 pg High 27.0-32.0 [facility] Comment on above: Performed By: #### B TSPAT, L100.0500 #### [facility] [address] [place], [address] MCHC (RBC) [Mass/Vol] 33.5 g/dL Normal 32-36 [facility] Comment on above: Performed By: #### B TSPAT, L100.0500 #### [facility] [address] [place], [address] MCV (RBC) [Entitic vol] 101.8 fL High 81-99 [facility] Comment on above: Performed By: #### B TSPAT, L100.0500 #### [facility] [address] [place], [address] Platelet mean volume (Bld) [Entitic vol] 10.2 fL Normal 6.2-12.0 [facility] Comment on above: Performed By: #### B TSPAT, L100.0500 #### [facility] [address] [place], [address] Platelets (Bld) [#/Vol] 300 10*3/uL Normal 150-450 [facility] Comment on above: Performed By: #### B TSPAT, L100.0500 #### [facility] [address] [place], [address] RBC (Bld) [#/Vol] 3.84 10*6/uL Low 4.2-5.4 [facility] Comment on above: Performed By: #### B TSPAT, L100.0500 #### [facility] [address] [place], [address] RDW SD 44.9 fl High 35.1-43.9 [facility] Comment on above: Performed By: #### B TSPAT, L100.0500 #### [facility] [address] [place], [place], [address] WBC (Bld) [#/Vol] 5.6 10*3/uL Normal 4.4-11.0 [facility] Comment on above: Performed By: #### B TSPAT, L100.0500 #### [facility] [address] [place], [address] Erythrocyte distribution wid th ratioOrdered By: Gisel Torrez on 08-15-2024 Erythrocyte distribution width (RBC) [Ratio] 11.9 % 11.6-14.6 [facility] Erythrocyte distribution wid th standard deviationOrdered By: Gisel Torrez on 08-15-2024 Erythrocyte distribution width (RBC) [Entitic vol] 44.9 fL High 35.1-43.9 [facility] Hematocrit Auto (Bld) [Volum e fraction]Ordered By: Gisel Torrez on 08-15-2024 Hematocrit (Bld) [Volume fraction] 39.1 % 37-47 [facility] Hemoglobin measurementOrdere d By: Gisel Torrez on 08-15-2024 Hemoglobin (Bld) [Mass/Vol] 13.1 g/dL 12.0-15.0 [facility] MCV (mean corpuscular volume ) determinationOrdered By: Gisel Torrez on 08-15-2024 MCV (RBC) [Entitic vol] 101.8 fL High 81-99 [facility] Mean corpuscular hemoglobin (MCH) determinationOrdered By: Gisel Torrez on 08-15-2024 MCH (RBC) [Entitic mass] 34.1 pg High 27.0-32.0 [facility] Mean corpuscular hemoglobin concentration (MCHC) determinationOrdered By: Gisel Torrez on 08-15-2024 MCHC (RBC) [Mass/Vol] 33.5 g/dL 32-36 [facility] Mean platelet volume determi nationOrdered By: Gisel Torrez on 08-15-2024 Platelet mean volume (Bld) [Entitic vol] 10.2 fL 6.2-12.0 [facility] Platelet countOrdered By: Chandler Torrez on 08-15-2024 Platelets (Bld) [#/Vol] 300 10*3/uL 150-450 [facility] RBC Auto (Bld) [#/Vol]Ordere d By: Gisel Torrez on 08-15-2024 RBC (Bld) [#/Vol] 3.84 10*6/uL Low 4.2-5.4 [facility] Type AND Screen - PAT ONLYon 08-15-2024 Ab SCREEN GEL Negative Normal [facility] Comment on above: Order Comment: Surge ry Date: 08/26/24 Reason for Laboratory Test PREOP [id number] No N N S D C POLYPECTOMY Performed By: #### B TSPAT, L100.0500 #### [facility] [address] [place], [place], [address] ABO and Rh group Nom (Bld) Blood group O Rh(D) positive Normal [facility] Comment on above: Order Comment: Surge ry Date: 08/26/24 Reason for Laboratory Test PREOP 20240826 No N N S D C POLYPECTOMY Performed By: #### B TSPAT, L100.0500 #### [facility] [address] [place], [place], [address] White blood cell (WBC) count Ordered By: Gisel Torrez on 08-15-2024 WBC (Bld) [#/Vol] 5.6 10*3/uL 4.4-11.0 [facility] Publishing Manager Office Visit Reporton 07-28-2024 Publishing Manager Office Visit Report [facility] [address], [address] [place] [address] OFFICE VISIT Date of Service: 07/28/24 MR#: [id number] Acct: [id number] Name: JOSEPHINE RENEE Rep #: [id number] : 1965 Provider: Dr. Gisel Butler DO Age/Sex: 59/F Location: [facility] Status: Signed Intake Vital Signs 07/11/24 09:09 07/28/24 09:37 07/28/24 09:38 Height 5 ft 3 in 5 ft 3 in 5 ft 3 in Weight: 125 lb 6 oz BMI 22.1 BP 144/78 H Intake Visit Reasons: US result/surgical consult many ??? Cytogenetic Technologist Required: No Is patient in pain?: No Allergies Sulfa (Sulfonamide Antibiotics) Allergy (Mild, Verified 07/28/24 09:36) Hives Medications ???Medication ???Instructions ???Recorded ???Confirmed ???Type duloxetine 20 mg capsule,delayed 20 mg PO DAILY 12/26/20 07/28/24 H istory release (Cymbalta) cholecalciferol (vitamin D3) 25 25 mcg PO DAILY 07/19/21 07/28/24 History mcg (1,000 unit) capsule (Vitamin D3) cyanocobalamin (vitamin B-12) 1,000 mcg PO QODAY 07/19/21 History 1,000 mcg lozenges calcium citrate 315 mg PO QDAY 04/30/24 07/28/24 H istory magnesium glycinate mg PO 04/30/24 07/28/24 History omega-3 fatty acids 260 mg PO BID 04/30/24 07/28/24 Hi story vitamin K2 100 mcg capsule 100 mcg PO QDAY 04/30/24 07/28/24 History zoledronic acid 5 mg/100 mL in ea .Route 04/30/24 07/28/24 Histor y mannitol 5 %-water intravenous piggybck (Reclast) Is last menstrual period known: No Patient : No : No PFSH Medical History Decreased renal function ( 12/2021) Breast cyst ( 10/23/21) Osteoporosis Wears contact lenses Post-menopausal Cancer Anxiety Alcohol use Shortness of breath on exertion Non-smoker Surgical History History of bunionectomy Hx of exploratory laparotomy Hx of wisdom tooth extraction Family History Grandfather Alcoholism Sister Alcoholism Mother CVA (cerebral vascular accident) Depression Father Pancreatic cancer Hypertension Sister Diabetes Social History Smoking Status: Never smoker alcohol intake: current alcohol intake frequency: 0-2 drinks per day substance use type: does not use what type of physical activity do you participate in: walking frequency: daily HPI US result/surgical consult many ??? Details: JOSEPHINE RENEE is a 59 year old who presents for follow up ultrasound that shows a polyp structure in the endometrium measuring about 0.5 cm with vascularity. She was noted to have a polyp at the cervical os by her primary doctor so this likely is the same polyp extending upward. She does not want a full D C, only wants the polyp removed. we discussed what a dilation and curettage is and that it is part of the removal of the polyp. History 0 Elective abortions Hx Para 0 Spontaneous abortions Hx # Term Pregnancies Ectopic pregnancies Hx # Pregnancies Multiple births # of living children 3 ROS Const ROS Unobtainable: All systems reviewed are unremarkable except as noted in H Resp Resp: Reports system reviewed and no additional complaints, except as documented; Denies cough GI GI: Reports as per HPI Psych Psych: Reports system reviewed and no additional complaints, except as documented Exam Const General: cooperative, healthy appearing, comfortable and no acute distress Resp Effort Inspection: normal respiratory effort Skin General: no rashes or lesions noted Psych Appearance: grossly normal Speech and Movement: speech and movement normal Coding Level of Care Code Off vis,est,level 4 Diagnoses Polyp of cervix N84.1 Assessment and Plan Assessment and Plan (1) Polyp of cervix: Status: Acute Plan: After discussing the patient's diagnosis and treatment plan options, patient wishes to proceed with surgical management. I have discussed with the patient the risks, benefits, and alternatives of the procedure which include but are not limited to risks of anesthesia, bleeding, infection, possible damage to bowel, bladder, or surrounding vasculature which could lead to additional surgery to evaluate any complications. Patient agrees to procedure and wishes to proceed. plan for hysteroscopy dilation and curettage, removal of polyp 07/28/24 1004 Date Gisel Kruger Signature: Date (if applicable) CC: Normal [facility] SCRN MAMM (CAD)W/AMBER BILATo n 07-28-2024 SCRN MAMM (CAD)W/AMBER BILAT [facility] Imaging Services [address] [place] [address] SCRN MAMM (CAD)W/AMBER BILAT MR#: [id number] Acct: [id number] Name: JOSEPHINE RENEE Rep #: [id number] : 1965 F 59 From: Opal Maria MD PCP: Dr. 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 No family history of breast cancer. TECHNIQUE: Bilateral screening digital breast tomosynthesis with 2D and 3D images. Computer aided detection. COMPARISON: 05/21/2023 FINDINGS: The breasts are extremely dense which lowers the sensitivity of mammography. The mammogram demonstrates that the patient has dense breasts. Supplemental screening with whole breast ultrasound may be considered for further evaluation. No suspicious masses, areas of developing architectural distortion, or suspicious calcifications. BI/SCRN MAMM (CAD)W/AMBER BILAT IMPRESSION: There is no evidence of malignancy in either breast. . BI-RADS 1: NEGATIVE. RECOMMEND ANNUAL MAMMOGRAPHIC SCREENING. Follow-up code: Routine Follow-up The patient will be notified of the results by letter. Reading Location: [facility] CC: DANISH Garnica; Dr. Sergio Landaverde MD Shuttle Fixer: Signed [facility] Pelvic w/ Transvaginalon Pelvic w/ Transvaginal [facility] Imaging Services [address] [place] [address] Pelvic w/ Transvaginal MR#: [id number] Acct: [id number] Name: JOSEPHINE RENEE Rep #: [id number] : 1965 F 59 From: Sandra Whalen MD PCP: Dr. Sergio Landaverde MD Status: [facility] CLI Study: Pelvic w/ Transvaginal Date of Exam: 07/14/24 Exam# [id number] Ordering Dr: Gladis Garnica [employer] ESCORT DRIVER-C [id number] INDICATION: post menopausal bleeding EXAMINATION: Ultrasound US Pelvis Non OB Complete With Transvaginal Imaging TECHNIQUE: Transabdominal and transvaginal pelvic ultrasound was performed. Grayscale, spectral waveform, and color flow Doppler evaluation of the adnexa. COMPARISON: Renal ultrasound dated May 30, 2024 FINDINGS: UTERUS: The uterus measures 5.6 x 2.3 x 3.4 cm. There is a well-circumscribed intramural hypoechoic 1.0 x 0.8 x 1.1 cm focus within the anterior uterine fundus. The endometrial stripe measures 4.0 mm in AP diameter which is within normal limits. There is fluid within the endometrial cavity. There is a 0.3 x 0.2 x 0.4 cm round echogenic focus within the endometrial cavity that demonstrates no internal vascularity. RIGHT OVARY: 1.4 x 0.9 x 1.6 cm. Non-enlarged, normal echogenicity. There is normal arterial inflow and venous outflow present in the right ovary. LEFT OVARY: 1.2 x 1.0 x 1.2 cm. Non-enlarged, normal echogenicity. There is normal arterial inflow and venous outflow present in the left ovary. FREE FLUID: None. The urinary bladder volume measures 211 cc. No gross abnormalities visualized. US/Pelvic w/ Transvaginal IMPRESSION: 0.3 x 0.2 x 0.4 cm echogenic focus within the endometrial cavity, may reflect a submucosal fibroid or polyp. 1.0 x 0.8 x 1.1 cm intramural fibroid. Electronically Signed: Sandra Whalen MD at 10:28 EST , CC: DANISH Garnica; Dr. Sergio Landaverde MD Shuttle Fixer: Signed Normal [facility] Publishing Manager Office Visit Reporton 07-11-2024 Publishing Manager Office Visit Report [facility] [address], [address] [place] [address] OFFICE VISIT Date of Service: 07/11/24 MR#: [id number] Acct: [id number] Name: JOSEPHINE RENEE Rep #: [id number] : 1965 Provider: Dr. Gisel Butler DO Age/Sex: 59/F Location: [facility] Status: Signed Intake Vital Signs 07/07/24 08:04 07/07/24 10:47 07/11/24 09:07 07/11/24 09:09 Height 5 ft 3 in 5 ft 3 in 5 ft 3 in 5 ft 3 in Weight: 124 lb 124 lb 4 oz BMI 21.9 22.0 BP 129/80 H 135/81 H Blood Pressure Location Lt brachial Position Sitting Respiration 16 Pulse 70 Pulse Source Monitor Temp 98.5 F Temperature Source Temporal Artery Pulse Oximetry (%) 100 Oxygen Delivery Method room air Intake Visit Reasons: Follow-up cervical polyp, PMB per CB Cytogenetic Technologist Required: No Is patient in pain?: No Allergies Sulfa (Sulfonamide Antibiotics) Allergy (Mild, Verified 07/11/24 09:07) Hives Medications ???Medication ???Instructions ???Recorded ???Confirmed ???Type duloxetine 20 mg capsule,delayed 20 mg PO DAILY 12/26/20 07/11/24 History release (Cymbalta) cholecalciferol (vitamin D3) 25 25 mcg PO DAILY 07/19/21 07/11/24 History mcg (1,000 unit) capsule (Vitamin D3) cyanocobalamin (vitamin B-12) 1,000 mcg PO QODAY 07/19/21 07/11/24 History 1,000 mcg lozenges calcium citrate 315 mg PO QDAY 04/30/24 07/11/24 History magnesium glycinate mg PO 04/30/24 07/11/24 History omega-3 fatty acids 260 mg PO BID 04/30/24 07/11/24 History vitamin K2 100 mcg capsule 100 mcg PO QDAY 04/30/24 07/11/24 History zoledronic acid 5 mg/100 mL in ea .Route 04/30/24 07/11/24 History mannitol 5 %-water intravenous piggybck (Reclast) Post menopausal: No Patient : No : No PFSH Medical History Decreased renal function ( 12/2021) Breast cyst ( 10/23/21) Osteoporosis Wears contact lenses Post-menopausal Cancer Anxiety Alcohol use Shortness of breath on exertion Non-smoker Surgical History History of bunionectomy Hx of exploratory laparotomy Hx of wisdom tooth extraction Family History Grandfather Alcoholism Sister Alcoholism Mother CVA (cerebral vascular accident) Depression Father Pancreatic cancer Hypertension Sister Diabetes Social History Smoking Status: Never smoker alcohol intake: current alcohol intake frequency: 0-2 drinks per day substance use type: does not use what type of physical activity do you participate in: walking frequency: daily HPI Follow-up cervical polyp, PMB per CB Details: JOSEPHINE RENEE is a 59 year old who presents for discussion about polyp found on exam during her annual with our nurse practitioner. She has never had a . She does have adopted 3 children. Patient reports she has severe pain with intercourse. She reports the more bothersome pain is with insertion. She reports she notices spotting with intercourse as well. She has also noticed 2 occasions this year with a light pinkish/red bleeding not associated with intercourse. She is post menopausal. History of Non-Hodgkins Follicular Cancer. History 0 Elective abortions Hx Para 0 Spontaneous abortions Hx # Term Pregnancies Ectopic pregnancies Hx # Pregnancies Multiple births # of living children 3 ROS Const ROS Unobtainable: All systems reviewed are unremarkable except as noted in H Resp Resp: Reports system reviewed and no additional complaints, except as documented; Denies cough GI GI: Reports as per HPI Psych Psych: Reports system reviewed and no additional complaints, except as documented Exam Const General: cooperative, healthy appearing, comfortable and no acute distress Resp Effort Inspection: normal respiratory effort General: bimanual renal exam normal bilaterally External Female Exam: normal appearance of the urethra Urethra: normal appearance of the urethra Speculum Exam - Vagina: normal appearance of the vagina Speculum Exam - Cervix: closed and mass (likely a polyp) friable and pedunculated Bimanual Exam- Adnexa, other: normal adnexae and normal Pelvic Support: normal Skin General: no rashes or lesions noted Psych Appearance: grossly normal Speech and Movement: speech and movement normal Coding Level of Care Code Off vis,est,level 4 Diagnoses Polyp of cervix N84.1 Assessment and Plan Assessment and Plan (1) Polyp of cervix: Status: Acute Plan: keep appt for ultrasound. and plan for hysteroscopy polypectomy due to discomfort with pelvic exams due to vaginal stenosis. After discussing the patient's d (more content not included)... Normal [facility] PAP IG HPV APTIMA 16/18,45on 07-10-2024 ADEQ Comment Normal . [facility] Comment on above: Order Comment: Speci men Comment: No. of containers..01 ThinPrep Vial Result Comment: Sati sfactory for evaluation. Endocervical component may not be distinguished in cases of atrophy. Performed By: #### L 7400.0280 #### [facility] [address] [place], [place], [id number] COMM . Normal . [facility] Comment on above: Order Comment: Speci men Comment: No. of containers..01 ThinPrep Vial Performed By: #### L 7400.0280 #### [facility] [address] [place], [address] COMMENT Comment Normal . [facility] Comment on above: Order Comment: Speci men Comment: No. of containers..01 ThinPrep Vial Result Comment: This liquid based ThinPrep(R) pap test was screened with the use of an image guided system. Performed By: #### L 7400.0280 #### [facility] [address] [place], [address] DIAG Comment Normal . [facility] Comment on above: Order Comment: Speci men Comment: No. of containers..01 ThinPrep Vial Result Comment: NEGA TIVE FOR INTRAEPITHELIAL LESION OR MALIGNANCY. CELLULAR CHANGES ASSOCIATED WITH ATROPHY ARE PRESENT. Performed By: #### L 7400.0280 #### [facility] [address] [place], [place], [address] [phone] HPV APTIMA, HR Negative Normal Negative [facility] Comment on above: Order Comment: Speci men Comment: No. of containers..01 ThinPrep Vial Result Comment: This nucleic acid amplification test detects fourteen high- risk HPV types (16,18,31,33,35,39,45,51,52,56,58,59,66,68) without differentiation. Performed By: #### L 7400.0280 #### [facility] [address] [place], [place], [address] HPV Rafaela Rfx Comment Normal . [facility] Comment on above: Order Comment: Speci men Comment: No. of containers..01 ThinPrep Vial Result Comment: Crit eria not met, HPV Genotype not performed. Performed at: - [address] [id number] [place] Installer: Janet Haley MD, Phone: [phone] Performed at: = - [facility] [id number] [place] Installer: Janet Haley MD, Phone: [phone] Performed By: #### L 7400.0280 #### [facility] [address] [place], [address] PAPSMR Comment Normal . [facility] Comment on above: Order Comment: Speci men Comment: No. of containers..01 ThinPrep Vial Result Comment: The Pap smear is a screening test designed to aid in the detection of premalignant and malignant conditions of the uterine cervix. It is not a diagnostic procedure and should not be used as the sole means of detecting cervical cancer. Both false-positive and false-negative reports do occur. Performed By: #### L 7400.0280 #### [facility] [address] [place], [place], [address] PERFORM Comment Normal . [facility] Comment on above: Order Comment: Speci men Comment: No. of containers..01 ThinPrep Vial Result Comment: Josee Stratton, Family Coach (ASCP) Performed By: #### L 7400.0280 #### [facility] [address] [place], [place], [address] Medical Records Library Professor Cyto stain Nom (C vx/Vag) [ID]Ordered By: Gladis Garnica on 07-07-2024 Pap Smear Performed By Comment . [facility] Comment on above: Fredo Stratton, Cytot echnologist (ASCP) Cytology report Cyto stain D oc (Cvx/Vag)Ordered By: Gladis Garnica on 07-07-2024 Thin Prep Pap Smear Comment . [facility] Comment on above: The Pap smear is a s creening test designed to aid in thedetection of premalignant and malignant conditions of theuterine cervix. It is not a diagnostic procedure andshould not be used as the sole means of detecting cervicalcancer. Both false-positive and false-negative reports dooccur. Cytology report Cyto stain.t hin prep Doc (Cvx/Vag)Ordered By: Gladis Garnica on 07-07-2024 HPV Genotype Special Info Comment . [facility] Comment on above: Criteria not met, HP V Genotype not performed.Performed at: WB - [facility] [address] [id number] Director: Janet Haley MD, Phone: [phone] at: =G - [facility] [address] [id number] Director: Janet Haley MD, Phone: [phone] HPV 16+18+31+33+35+39+45+51+ 52+56+58+59+66+68 DNA Probe+sig amp Ql (Cvx)Ordered By: Gladis Garnica on 07-07-2024 Human Papillomavirus High Risk Negative Negative [facility] Comment on above: This nucleic acid am plification test detects fourteen high- risk HPV types (16,18,31,33,35,39,45,51,52,56,58,59,66,68)without differentiation. Image-guided ThinPrep PapOrd ered By: Gladis Garnica on 07-07-2024 Pap Smear Note Comment . [facility] Comment on above: This liquid based Th inPrep(R) pap test was screened withthe use of an image guided system. Image-guided liquid-based Pa pOrdered By: Gladis Garnica on 07-07-2024 Pap Smear Diagnosis Comment . [facility] Comment on above: NEGATIVE FOR INTRAEP ITHELIAL LESION OR MALIGNANCY.CELLULAR CHANGES ASSOCIATED WITH ATROPHY ARE PRESENT. Publishing Manager Office Visit Reporton 07-07-2024 Publishing Manager Office Visit Report [facility] [address], [address] [place] [address] OFFICE VISIT Date of Service: 07/07/24 MR#: [id number] Acct: [id number] Name: JOSEPHINE RENEE Rep #: [id number] : 1965 Provider: DANISH Osorio Age/Sex: 59/F Location: 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) Cytogenetic Technologist Required: No Accompanied by: Self Is patient in pain?: No Allergies Sulfa (Sulfonamide Antibiotics) Allergy (Mild, Verified 07/07/24 08:04) Hives Medications ???Medication ???Instructions ???Recorded ???Confirmed ???Type duloxetine 20 mg capsule,delayed 20 mg PO DAILY 12/26/20 07/07/24 History release (Cymbalta) cholecalciferol (vitamin D3) 25 25 mcg PO DAILY 07/19/21 07/07/24 History mcg (1,000 unit) capsule (Vitamin D3) cyanocobalamin (vitamin B-12) 1,000 mcg PO QODAY 07/19/21 07/07/24 History 1,000 mcg lozenges calcium citrate 315 mg PO QDAY 04/30/24 07/07/24 History magnesium glycinate mg PO 04/30/24 07/07/24 History omega-3 fatty acids 260 mg PO BID 04/30/24 07/07/24 History vitamin K2 100 mcg capsule 100 mcg PO QDAY 04/30/24 07/07/24 History zoledronic acid 5 mg/100 mL in ea .Route 04/30/24 07/07/24 History mannitol 5 %-water intravenous piggybck (Reclast) Post menopausal: Yes PFSH Medical History Decreased renal function ( 12/2021) Breast cyst ( 10/23/21) Osteoporosis Wears contact lenses Post-menopausal Cancer Anxiety Alcohol use Shortness of breath on exertion Non-smoker Surgical History History of bunionectomy Hx of exploratory laparotomy Hx of wisdom tooth extraction Family History Grandfather Alcoholism Sister Alcoholism Mother CVA (cerebral vascular accident) Depression Father Pancreatic cancer Hypertension Sister Diabetes Social History Smoking Status: Never smoker alcohol intake: current alcohol intake frequency: 0-2 drinks per day substance use type: does not use what type of physical activity do you participate in: walking frequency: daily History 0 Elective abortions Hx Para 0 Spontaneous abortions Hx # Term Pregnancies Ectopic pregnancies Hx # Pregnancies Multiple births # of living children 3 HPI Encounter for routine gynecological examination Details: JOSEPHINE RENEE is a 59 year old who presents for annual exam. She has never had a . She does have adopted 3 children. Patient reports she has severe pain with intercourse. She reports the more bothersome pain is with insertion. She reports she notices spotting with intercourse as well. She has also noticed 2 occasions this year with a light pinkish/red bleeding not associated with intercourse. She is post menopausal. History of Non-Hodgkins Follicular Cancer. Last PAP: 2019; neg/neg--via [facility]--results on MyChart. History of abnormal PAP: none Last mammogram: 2022; negative. History of abnormal mammogram: previous cyst removed. Colon cancer screening: None Other preventative health care screenings: PCP: Dr. Landaverde. ROS Const Constitutional: Denies chills, fatigue, fever(s), headache(s) or weight loss Eyes Eyes: Denies change in vision ENT ENT: Denies dizziness Resp Resp: Denies cough GI GI: Denies abdominal pain, constipation or nausea : Reports as per HPI, sexual dysfunction and vaginal dryness; Denies difficulty voiding, dysuria, hematuria, pelvic pain, prolapse symptoms, urinary incontinence, vaginal discharge, vaginal odor or vaginal pruritus Skin Skin/Breast: Denies alopecia or rash Neuro Neuro: Denies dizziness Psych Psych: Denies anxiety or depression Endo Endo: Denies cold intolerance, excessive sweating or heat intolerance Exam Const General: cooperative, healthy appearing, comfortable, no acute distress, well groomed and well hydrated Nutritional Appearance: well nourished Orientation: alert, awake and oriented x3 HENMT Head: normal to inspection and normocephalic Ears: hearing grossly normal bilaterally and external ears normal Nose: external nose normal Face and sinus: normal facial exam Eyes General: appearance normal, both eyes and all related structures Neck Neck: normal visual inspection, full ROM and no lymphadenopathy Thyroid: thyroid normal (more content not included)... Normal [facility] comment (Unsp spec) [Interp]Ordered By: Gladis Garnica on 07-07-2024 Pap Smear Comment (3) . . [facility] CBC W Auto Differential pane l (Bld)on 07-02-2024 Basophils (Bld) [#/Vol] 0.04 10*3/uL Normal <0.11 [facility] Comment on above: Order Comment: Speci men Type: BLOOD SPECIMENOrdering Facility: [facility] Address: [address] [place] [address] Performed By: #### 5 7021-8 ####[facility] [id number] [place] [address] [place] Basophils/100 WBC (Bld) 0.8 % Normal [facility] Comment on above: Order Comment: Speci men Type: BLOOD SPECIMENOrdering Facility: [facility] Address: [address] [place] [address] Performed By: #### 5 7021-8 ####[facility] [id number] [place] [address] [place] Differential cell count method Nom (Bld) Auto Normal [facility] Comment on above: Order Comment: Speci men Type: BLOOD SPECIMENOrdering Facility: [facility] Address: [address] [place] [address] Performed By: #### 5 7021-8 ####[facility] [id number] [place] [address] [place] Eosinophils (Bld) [#/Vol] 0.06 10*3/uL Normal <0.46 [facility] Comment on above: Order Comment: Speci men Type: BLOOD SPECIMENOrdering Facility: [facility] Address: [address] [place] [address] Performed By: #### 5 7021-8 ####[facility] [id number] [place] [address] [place] Eosinophils/100 WBC (Bld) 1.3 % Normal [facility] Comment on above: Order Comment: Speci men Type: BLOOD SPECIMENOrdering Facility: [facility] Address: [address] [place] [address] Performed By: #### 5 7021-8 ####[facility] [id number] [place] [address] [place] Erythrocyte distribution width (RBC) [Ratio] 12.0 % Normal 11.5-15.0 [facility] Comment on above: Order Comment: Speci men Type: BLOOD SPECIMENOrdering Facility: [facility] Address: [address] [place] [address] Performed By: #### 5 7021-8 ####[facility] [id number] [place] [address] [place] Hematocrit (Bld) [Volume fraction] 42.0 % Normal 36.0-46.0 [facility] Comment on above: Order Comment: Speci men Type: BLOOD SPECIMENOrdering Facility: [facility] Address: [address] [place] [address] Performed By: #### 5 7021-8 ####[facility] [id number] [place] [address] [place] Hemoglobin (Bld) [Mass/Vol] 13.7 g/dL Normal 11.5-15.5 [facility] Comment on above: Order Comment: Speci men Type: BLOOD SPECIMENOrdering Facility: [facility] Address: [address] [place] [address] Performed By: #### 5 7021-8 ####[facility] [id number] [place] [address] [place] Immature granulocytes (Bld) [#/Vol] 10*3/uL Normal <0.10 [facility] Comment on above: Order Comment: Speci men Type: BLOOD SPECIMENOrdering Facility: [facility] Address: [address] [place] [address] Performed By: #### 5 7021-8 ####[facility] [id number] [place] [address] [place] Immature granulocytes/100 WBC (Bld) 0.4 % Normal [facility] Comment on above: Order Comment: Speci men Type: BLOOD SPECIMENOrdering Facility: [facility] Address: [address] [place] [address] Performed By: #### 5 7021-8 ####[facility] [id number] [place] [address] [place] Lymphocytes (Bld) [#/Vol] 1.58 10*3/uL Normal 1.00-4.00 [facility] Comment on above: Order Comment: Speci men Type: BLOOD SPECIMENOrdering Facility: [facility] Address: [address] [place] [address] Performed By: #### 5 7021-8 ####[facility] [id number] [place] [address] [place] Lymphocytes/100 WBC (Bld) 33.5 % Normal [facility] Comment on above: Order Comment: Speci men Type: BLOOD SPECIMENOrdering Facility: [facility] Address: [address] [place] [address] Performed By: #### 5 7021-8 ####[facility] [id number] [place] [address] [place] MCH (RBC) [Entitic mass] 33.3 pg Normal 26.0-34.0 [facility] Comment on above: Order Comment: Speci men Type: BLOOD SPECIMENOrdering Facility: [facility] Address: [address] [place] [address] Performed By: #### 5 7021-8 ####[facility] [id number] [place] [address] [place] MCHC (RBC) [Mass/Vol] 32.6 g/dL Normal 30.5-36.0 [facility] Comment on above: Order Comment: Speci men Type: BLOOD SPECIMENOrdering Facility: [facility] Address: [address] [place] [address] Performed By: #### 5 7021-8 ####[facility] [id number] [place] [address] [place] MCV (RBC) [Entitic vol] 101.9 fL High 80.0-100.0 [facility] Comment on above: Order Comment: Speci men Type: BLOOD SPECIMENOrdering Facility: [facility] Address: [address] [place] [address] Performed By: #### 5 7021-8 ####[facility] [id number] [place] [address] [place] Monocytes (Bld) [#/Vol] 0.50 10*3/uL Normal <0.87 [facility] Comment on above: Order Comment: Speci men Type: BLOOD SPECIMENOrdering Facility: [facility] Address: [address] [place] [address] Performed By: #### 5 7021-8 ####[facility] [id number] [place] [address] [place] Monocytes/100 WBC (Bld) 10.6 % Normal [facility] Comment on above: Order Comment: Speci men Type: BLOOD SPECIMENOrdering Facility: [facility] Address: [address] [place] [address] Performed By: #### 5 7021-8 ####[facility] [id number] [place] [address] [place] Neutrophils (Bld) [#/Vol] 2.51 10*3/uL Normal 1.45-7.50 [facility] Comment on above: Order Comment: Speci men Type: BLOOD SPECIMENOrdering Facility: [facility] Address: [address] [place] [address] Performed By: #### 5 7021-8 ####[facility] [id number] [place] [address] [place] Neutrophils/100 WBC (Bld) 53.4 % Normal [facility] Comment on above: Order Comment: Speci men Type: BLOOD SPECIMENOrdering Facility: [facility] Address: [address] [place] [address] Performed By: #### 5 7021-8 ####[facility] [id number] [place] [address] [place] Nucleated RBC (Bld) [#/Vol] 10*3/uL Normal <0.01 [facility] Comment on above: Order Comment: Speci men Type: BLOOD SPECIMENOrdering Facility: [facility] Address: [address] [place] [address] Performed By: #### 5 7021-8 ####[facility] [id number] [place] [address] [place] Nucleated RBC/100 WBC (Bld) [Ratio] 0.0 /100 WBC Normal [facility] Comment on above: Order Comment: Speci men Type: BLOOD SPECIMENOrdering Facility: [facility] Address: [address] [place] [address] Performed By: #### 5 7021-8 ####[facility] [id number] [place] [address] [place] Platelet mean volume (Bld) [Entitic vol] 9.4 fL Normal 9.0-12.7 [facility] Comment on above: Order Comment: Speci men Type: BLOOD SPECIMENOrdering Facility: [facility] Address: [address] [place] [address] Performed By: #### 5 7021-8 ####[facility] [id number] [place] [address] [place] Platelets (Bld) [#/Vol] 351 10*3/uL Normal 150-400 [facility] Comment on above: Order Comment: Speci men Type: BLOOD SPECIMENOrdering Facility: [facility] Address: [address] [place] [address] Performed By: #### 5 7021-8 ####[facility] [id number] [place] [address] [place] RBC (Bld) [#/Vol] 4.12 10*6/uL Normal 3.90-5.20 [facility] Comment on above: Order Comment: Speci men Type: BLOOD SPECIMENOrdering Facility: [facility] Address: [address] [place] [address] Performed By: #### 5 7021-8 ####[facility] [id number] [place] [id number] [place] WBC (Bld) [#/Vol] 4.71 10*3/uL Normal 3.70-11.00 [facility] Comment on above: Order Comment: Speci men Type: BLOOD SPECIMENOrdering Facility: [facility] Address: [address] [place] [address] Performed By: #### 5 7021-8 ####[facility] [id number] [place] [id number] [place] CNOVSPon 07-02-2024 CNOVSP Visit (SP) Office (H EMAPR) -- JOSEPHINE RENEE ([id number]) 1965 F Date Time Provider Department 07/02/24 11:30 AM KARO HILL During your visit today, we recorded the following information about you: Temperature Pulse Respiration Blood pressure 98 degrees 65/minute 16/minute 141/73 Weight Height 55.6 kg 1.613 m Sary Cheema LPN 07/02/2024 11:13 AM Signed Additional intake questions: Has the patient had fever, nausea, vomiting, diarrhea, constipation, fatigue for > 1 week? No Does the patient have a decreased appetite? No Does patient want to see a Electrical Cad Designer? No (yes to any of above refer patient to schedulers for dietitian appointment) ) Does patient have any new or increased numbness or tingling of extremities? Yes, Left arm Is patient interested in fertility information? No Does patient need any prescription refills? No Does patient have an advanced directive in place? 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 INTERIM HISTORY: Nursing notes reviewed; agree with findings as documented. Ms. Renee returns for follow up. History of Present Illness The patient presents for a follow-up for follicular lymphoma. She reports no new health concerns since her last visit in 12/2023. She feels good with no unusual swelling, aches, pains, or night sweats. She has been on a long-term antidepressant regimen and believes her energy and motivation levels have decreased since her diagnosis. She attributes her persistent fatigue to menopause or decreased physical activity, which she plans to resume after foot surgery. She is currently supplementing with vitamin B12 due to her vegetarian diet. Her primary care physician recently conducted a normal thyroid test, but her B12 levels were not assessed. Supplemental Information She has a black eye from a minor fall while hiking in a cave during a vacation in [facility]. MEDICATIONS: Per [employer]. REVIEW OF SYSTEMS: As described above. ECOG PS = 0. Physical Exam General Appearance: Well-appearing, in no distress. Vital signs: Within normal limits. HEENT: Normocephalic. Extraocular movements intact, sclerae anicteric. The oropharynx is clear. Respiratory: Lungs auscultated. Cardiovascular: Heart sounds regular, no murmur. Abdomen: Soft, nontender, without distension, mass, or organomegaly. Lymphatic: No cervical, axillary, or inguinal lymphadenopathy. Musculoskeletal: No spinal tenderness to palpation. Extremities: No peripheral edema. Skin: Warm and dry, no rash. DIAGNOSTIC STUDIES: Latest Ref Rng AND Units 07/04/2023 12/31/2023 07/02/2024 CBC WBC 3.70 - 11.00 k/uL 3.71 4.65 4.71 RBC 3.90 - 5.20 m/uL 4.15 3.93 4.12 Hemoglobin 11.5 - 15.5 g/dL 13.0 12.9 13.7 Hematocrit 36.0 - 46.0 % 41.3 39.7 42.0 MCV 80.0 - 100.0 fL 99.5 101.0 101.9 MCH 26.0 - 34.0 pg 31.3 32.8 33.3 MCHC 30.5 - 36.0 g/dL 31.5 32.5 32.6 RDW-CV 11.5 - 15.0 % 12.5 12.8 12.0 Platelet Count 150 - 400 k/uL 345 387 351 MPV 9.0 - 12.7 fL 9.9 9.9 9.4 Baso% % 0.8 0.6 0.8 Abs Neut (ANC) 1.45 - 7.50 k/uL 2.01 2.88 2.51 Abs Lymph 1.00 - 4.00 k/uL 1.16 1.18 1.58 Abs [place] <0.87 k/uL 0.48 0.49 0.50 Abs Eosin <0.46 k/uL <0.03 0.06 0.06 Abs Baso <0.11 k/uL 0.03 0.03 0.04 NRBC /100 WBC 0.0 0.0 0.0 Latest Ref Rng AND Units 07/04/2023 12/31/2023 07/02/2024 CMP Sodium 136 - 144 mmol/L 143 139 143 Potassium 3.7 - 5.1 mmol/L 5.2 4.8 4.0 Chloride 98 - 107 mmol/L 105 103 105 CO2 22 - 30 mmol/L 28 26 29 Glucose 74 - 99 mg/dL 94 79 86 BUN 7 - 21 mg/dL 12 17 14 Creatinine 0.58 - 0.96 mg/dL 0.79 0.86 0.73 EGFR >=60 mL/min/1.73m? 86 77 94 Protein, Total 6.3 - 8.0 g/dL 7.7 6.8 7.7 Albumin 3.9 - 4.9 g/dL 4.6 4.3 4.6 Calcium 8.5 - 10.2 mg/dL 10.4 9.7 9.7 Bilirubin, Total 0.2 - 1.3 mg/dL 0.4 0.2 0.4 AST 13 - 35 U/L 18 18 21 ALT 7 - 38 U/L 13 12 16 Alkaline Phosphatase 34 - 123 U/L 113 100 85 LD Date Value Ref Range Status 07/02/2024 180 135 - 214 U/L Final Assessment AND Plan 1. Follicular lymphoma in clinical remission - Last CT in 12/2023, 2 years post-treatment - Repeat CT in summer 2025 unless clinically indicated - Next checkup to include labs and office visit 2. Mild macrocytosis without anemia - Noted on CBC today and intermittently prior - Slight fatigue and macrocytosis may indicate mild B12 deficiency - B12 level to be added to today's l (more content not included)... Normal [facility] Cobalamin (Vitamin B12) [Mas s/Vol]on 07-02-2024 Interpretation and review of laboratory results Normal [facility] Comprehensive metabolic 2000 panelon 07-02-2024 Albumin [Mass/Vol] 4.6 g/dL Normal 3.9-4.9 [facility] Comment on above: Order Comment: Speci men Type: BLOOD SPECIMENOrdering Facility: [facility] Address: [address] [place] [address] Performed By: #### 2 4323-8 ####[facility] [id number] [place] [address] [place] ALP [Catalytic activity/Vol] 85 U/L Normal 34-123 [facility] Comment on above: Order Comment: Adarsh angel Type: BLOOD SPECIMENOrdering Facility: [facility] Address: [address] [place] [address] Performed By: #### 2 4323-8 ####[facility] [id number] [place] [address] [place] ALT [Catalytic activity/Vol] 16 U/L Normal 7-38 [facility] Comment on above: Order Comment: Speci men Type: BLOOD SPECIMENOrdering Facility: [facility] Address: [address] [place] [address] Performed By: #### 2 4323-8 ####[facility] [id number] [place] [address] [place] Anion gap [Moles/Vol] 9 mmol/L Normal 8-15 [facility] Comment on above: Order Comment: Speci men Type: BLOOD SPECIMENOrdering Facility: [facility] Address: [address] [place] [address] Performed By: #### 2 4323-8 ####[facility] [id number] [place] [address] [place] AST [Catalytic activity/Vol] 21 U/L Normal 13-35 [facility] Comment on above: Order Comment: Speci men Type: BLOOD SPECIMENOrdering Facility: [facility] Address: [address] [place] [address] Performed By: #### 2 4323-8 ####[facility] [id number] [place] [address] [place] Bilirubin [Mass/Vol] 0.4 mg/dL Normal 0.2-1.3 [facility] Comment on above: Order Comment: Speci men Type: BLOOD SPECIMENOrdering Facility: [facility] Address: [address] [place] [address] Performed By: #### 2 4323-8 ####[facility] [id number] [place] [address] [place] Calcium [Mass/Vol] 9.7 mg/dL Normal 8.5-10.2 [facility] Comment on above: Order Comment: Speci men Type: BLOOD SPECIMENOrdering Facility: [facility] Address: [address] [place] [address] Performed By: #### 2 4323-8 ####[facility] [id number] [place] [address] [place] Chloride [Moles/Vol] 105 mmol/L Normal 98-107 [facility] Comment on above: Order Comment: Speci men Type: BLOOD SPECIMENOrdering Facility: [facility] Address: [address] [place] [address] Performed By: #### 2 4323-8 ####[facility] [id number] [place] [address] [place] CO2 [Moles/Vol] 29 mmol/L Normal 22-30 [facility] Comment on above: Order Comment: Speci men Type: BLOOD SPECIMENOrdering Facility: [facility] Address: [address] [place] [address] Performed By: #### 2 4323-8 ####[facility] [id number] [place] [address] [place] Creatinine [Mass/Vol] 0.73 mg/dL Normal 0.58-0.96 [facility] Comment on above: Order Comment: Speci men Type: BLOOD SPECIMENOrdering Facility: [facility] Address: [address] [place] [address] Performed By: #### 2 4323-8 ####[facility] [id number] [place] [address] STATES [facility] Creatinine and Glomerular filtration rate.predicted panel (S/P/Bld) 94 mL/min/1.73m??? Normal >=60 [facility] Comment on above: Order Comment: Speci men Type: BLOOD SPECIMENOrdering Facility: [facility] Address: [address] [place] [address] Result Comment: Danielle mated Glomerular Filtration Rate (eGFR) is calculated using the 2020 CKD-EPI creatinine equation. This equation utilizes serum creatinine, sex, and age as parameters. The creatinine assay has traceable calibration to isotope dilution-mass spectrometry. Refer to KDIGO guidelines for clinical interpretation. In patients with unstable renal function, e.g. those with acute kidney injury, the eGFR may not accurately reflect actual GFR. Performed By: #### 2 4323-8 ####[facility] [id number] [place] [address] [place] Glucose [Mass/Vol] 86 mg/dL Normal 74-99 [facility] Comment on above: Order Comment: Speci men Type: BLOOD SPECIMENOrdering Facility: [facility] Address: [address] [place] [address] Result Comment: The [place] Diabetes Association (ADA) provides guidance for cutoff values for fasting glucose and random glucose. The ADA defines fasting as no caloric intake for at least 8 hours. Fasting plasma glucose results between 100 to 125 mg/dL indicate increased risk for diabetes (prediabetes). Fasting plasma glucose results greater than or equal to 126 mg/dL meet the criteria for diagnosis of diabetes. In the absence of unequivocal hyperglycemia, results should be confirmed by repeat testing. In a patient with classic symptoms of hyperglycemia or hyperglycemic crisis, random plasma glucose results greater than or equal to 200 mg/dL meet the criteria for diagnosis of diabetes. Reference: Standards of Medical Care in Diabetes 2016, [place] [employer] Association. Diabetes Care. 2016.39(Suppl 1). Performed By: #### 2 4323-8 ####[facility] [id number] [place] [address] [place] Potassium [Moles/Vol] 4.0 mmol/L Normal 3.7-5.1 [facility] Comment on above: Order Comment: Speci men Type: BLOOD SPECIMENOrdering Facility: [facility] Address: [address] [place] [address] Performed By: #### 2 4323-8 ####[facility] [id number] [place] [address] [place] Protein [Mass/Vol] 7.7 g/dL Normal 6.3-8.0 [facility] Comment on above: Order Comment: Speci men Type: BLOOD SPECIMENOrdering Facility: [facility] Address: [address] [place] [address] Performed By: #### 2 4323-8 ####[facility] [id number] [place] [address] [place] Sodium [Moles/Vol] 143 mmol/L Normal 136-144 [facility] Comment on above: Order Comment: Speci men Type: BLOOD SPECIMENOrdering Facility: [facility] Address: [address] [id number] Performed By: #### 2 4323-8 ####[facility] [id number] [place] [address] [place] Urea nitrogen [Mass/Vol] 14 mg/dL Normal 7-21 [facility] Comment on above: Order Comment: Speci men Type: BLOOD SPECIMENOrdering Facility: [facility] Address: [address] [place] [address] Performed By: #### 2 4323-8 ####[facility] [id number] [place] [address] [place] LDH SerPl-cCncon 07-02-2024 LDH [Catalytic activity/Vol] 180 U/L Normal 135-214 [facility] Comment on above: Order Comment: Speci men Type: BLOOD SPECIMENOrdering Facility: [facility] Address: [address] [place] [address] Performed By: #### 2 532-0 ####[facility] [id number] [place] [address] [place]#### 2132-9 ####[facility] [id number] [place] [address] [place] VITAMIN B12on 07-02-2024 Cobalamin (Vitamin B12) [Mass/Vol] 529 pg/mL 232 - 1245 pg/mL [facility] Vit B12 SerPl-mCncon 025 Cobalamin (Vitamin B12) [Mass/Vol] 529 pg/mL Normal 232-1245 [facility] Comment on above: Order Comment: Speci men Type: BLOOD SPECIMENOrdering Facility: [facility] Address: [address] [place] [address] Performed By: #### 2 532-0 ####[facility] [id number] [place] [address] [place]#### 2132-9 ####[facility] LABCLIA [id number] [place]TONDanielle [facility] [place] [address] [place] Kidney and Bladderon [address] [facility] Imaging Services [address] [place] [address] Kidney and Bladder MR#: [id number] Acct: [id number] Name: JOSEPHINE RENEE Rep #: [id number] : 1965 F 59 From: Rdorigo Monson MD PCP: Dr. Sergio Landaverde MD Status: REG CLI Study: Kidney and Bladder Date of Exam: 05/30/24 Exam# [id number] Ordering Dr: Sergio Landaverde [id number] INDICATION: new CKD and L hydronephrosis EXAMINATION: Ultrasound US Kidney(s) complete (eg, kidneys and bladder) COMPARISON: None. FINDINGS: 76 grayscale ultrasound images of the bilateral kidneys and urinary bladder. KIDNEYS: Bilateral kidneys without shadowing nephrolith. Mild left hydronephrosis. No right hydronephrosis. No obvious renal parenchymal lesion. URINARY BLADDER:?Adequately distended urinary bladder is without obvious abnormality, 102 cc volume. Bilateral ureteral jets are identified. No significant free fluid. US/Kidney and Bladder IMPRESSION: Mild left hydronephrosis. Electronically Signed: Rodrigo Monson MD at 0:06 EST , CC: Dr. Sergio Landaverde MD Shuttle Fixer: Signed Normal [facility] Urine Cultureon 04-18-2024 [facility] Order Date: 04/15/24 Order Info: 630-4 - CUUR Presumptive E. coli [place] Count >100,000 Presumptive E. coli: REACTION Ampicillin Islt JUSTYNA 8 Ampicillin+Sulbac Islt JUSTYNA 4 S ceFAZolin Islt JUSTYNA <=4 S Cefepime Islt JUSTYNA <=0.12 S cefTRIAXone Islt JUSTYNA <=0.25 S Ciprofloxacin Islt JUSTYNA <=0.25 S B-Lactamase Extended Susc Islt NEG Gentamicin Islt JUSTYNA <=1 S Imipenem Islt JUSTYNA <=0.25 S levoFLOXacin Islt JUSTYNA <=0.12 S Nitrofurantoin Islt JUSTYNA <=16 S Pip+Tazo Islt JUSTYNA <=4 S Tobramycin Islt JUSTYNA <=1 S TMP SMX Islt JUSTYNA <=20 S Normal [facility] Comment on above: Performed By: #### M 100.2200 ####[facility] [id number] [place], [address] CNOVSPon 01-02-2024 CNOVS Visit (SP) Office ( EMAPR) -- JOSEPHINE RENEE ([id number]) 1965 F Date Time Provider Department 01/02/24 1:30 PM SERGIO PLASCENCIA HEMAMN During your visit today, we recorded the following information about you: Temperature Pulse Respiration Blood pressure 98.5 degrees 63/minute 18/minute 125/68 Weight 55.1 kg Sergio Plascencia PA-C 01/02/2024 1:[address] 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 INTERIM HISTORY: Ms. Víctor returns for follow up. She feels well with no symptoms or concerns today. Notes fatigue present that pre-dated lymphoma dx and treatment by 2-3 years, was present during chemo and has persisted post chemo despite good sleep habits and no other discernable cause. No fevers/chills, night sweats, LAD, MCFADDEN, dizziness/lightheadedness, CP, dyspnea/SOB, abdominal pain, n/v, changes in bowel/bladder function, bleeding/bruising, skin changes/rashes, or edema MEDICATIONS: Per [employer]. REVIEW OF SYSTEMS: As described above. ECOG PS = 0. PHYSICAL EXAMINATION: VITAL SIGNS: BP 125/68 Pulse 63 Temp 36.9 ?C (98.5 ?F) (Temporal) Resp 18 Wt 55.1 kg (121 lb 7.6 oz) SpO2 100% BMI 21.00 kg/m? GENERAL: well-appearing middle-aged woman in no acute distress. HEAD, EYES, EARS, NOSE, AND THROAT: Normocephalic, atraumatic. Extraocular movements intact, sclerae anicteric. The oropharynx is clear. NECK: Supple, no lymphadenopathy or masses. CHEST: Clear to auscultation. No rales, wheezes, or rhonchi. CARDIAC: Regular rate and rhythm, normal S1 and S2. No murmurs. EXTREMITIES: Warm, no edema. MUSCULOSKELETAL: No spinal tenderness to palpation. No obvious deformity. SKIN: No rash or suspicious lesions. DIAGNOSTIC STUDIES: Latest Ref Rng AND Units 01/03/2023 07/04/2023 12/31/2023 CBC WBC 3.70 - 11.00 k/uL 3.14 3.71 4.65 RBC 3.90 - 5.20 m/uL 3.90 4.15 3.93 Hemoglobin 11.5 - 15.5 g/dL 12.4 13.0 12.9 Hematocrit 36.0 - 46.0 % 37.9 41.3 39.7 MCV 80.0 - 100.0 fL 97.2 99.5 101.0 MCH 26.0 - 34.0 pg 31.8 31.3 32.8 MCHC 30.5 - 36.0 g/dL 32.7 31.5 32.5 RDW-CV 11.5 - 15.0 % 12.6 12.5 12.8 Platelet Count 150 - 400 k/uL 353 345 387 MPV 9.0 - 12.7 fL 9.4 9.9 9.9 Baso% % 1.0 0.8 0.6 Abs Neut (ANC) 1.45 - 7.50 k/uL 1.63 2.01 2.88 Abs Lymph 1.00 - 4.00 k/uL 0.92 1.16 1.18 Abs [place] <0.87 k/uL 0.50 0.48 0.49 Abs Eosin <0.46 k/uL 0.05 <0.03 0.06 Abs Baso <0.11 k/uL 0.03 0.03 0.03 NRBC /100 WBC 0.0 0.0 0.0 Latest Ref Rng AND Units 01/03/2023 07/04/2023 12/31/2023 CMP Sodium 136 - 144 mmol/L 145 143 139 Potassium 3.7 - 5.1 mmol/L 4.8 5.2 4.8 Chloride 98 - 107 mmol/L 106 105 103 CO2 22 - 30 mmol/L 28 28 26 Glucose 74 - 99 mg/dL 93 94 79 BUN 7 - 21 mg/dL 13 12 17 Creatinine 0.58 - 0.96 mg/dL 0.74 0.79 0.86 EGFR >=60 mL/min/1.73m? 93 86 77 Protein, Total 6.3 - 8.0 g/dL 7.5 7.7 6.8 Albumin 3.9 - 4.9 g/dL 4.6 4.6 4.3 Calcium 8.5 - 10.2 mg/dL 10.1 10.4 9.7 Bilirubin, Total 0.2 - 1.3 mg/dL 0.4 0.4 0.2 AST 13 - 35 U/L 20 18 18 ALT 7 - 38 U/L 12 13 12 Alkaline Phosphatase 34 - 123 U/L 128 113 100 Latest Ref Rng 12/31/2023 LD 135 - 214 U/L 163 IMPRESSION AND PLAN: 1. Follicular lymphoma: Surveillance CT scans performed yesterday, radiology report is pending but on my review the images appear quite similar to 08/2022 scans consistent with continued CR, but will follow radiology results when available. 2. IV access: Peripheral IV access is marginal; anticipate that a port will be needed for further treatment in the future. I spent approximately 20 minutes in the visit including review of history/test results and preparing/completing documentation with more than 50% of the total duyj-vf-zvcl time of the visit in counseling / coordination of care Sergio Plascencia PA-C cc: Sergio Landaverde MD; ; Ro Haas OCCA 01/02/2024 1:35 PM Signed Additional intake questions: Has the patient had fever, nausea, vomiting, diarrhea, constipation, fatigue for > 1 week? Yes, fatigue and Provider Notified Does the patient have a decreased appetite? No Does patient want to see a Electrical Cad Designer? No (yes to any of above refer patient to schedulers for dietitian appointment) ) Does patient have any new or increased numbness or tingling of extremities? No Is patient interested in fertility information? No Does patient need any prescription refills? No Does patient have an advanced directive in place? Yes, no copy found in [employer] Electronically Signed By: Ro Haas (more content not included)... Normal [facility] CT ABD/PEL W IVCONon 024 CT ABD/PEL W IVCON * * *Final Report* * * DATE OF EXAM: Jan 01 2024 10:17AM [facility] 0530 - CT ABD/PEL W IVCON / PROCEDURE REASON: 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) * * * * Physician Interpretation * * * * EXAMINATION: CT ABDOMEN AND PELVIS WITH IV CONTRAST CLINICAL HISTORY: Follow-up lymphoma TECHNIQUE: CT of the abdomen and pelvis was performed using standard technique, scanning from just above the dome of the diaphragm to the symphysis pubis. MQ: CTAP_3 Contrast: IV: 100 ml of Omnipaque 350 : ml of CT Radiation dose: Integrated Dose-length product (DLP) for this visit = 386.16 mGy*cm. CT Dose Reduction Employed: Automated exposure control(AEC) and iterative recon COMPARISON: 08/30/22. RESULT: Liver: Stable cysts. Biliary: No bile duct dilation. Gallbladder is unremarkable. Spleen: No mass. No splenomegaly. Pancreas: No mass or duct dilation. Adrenals: No mass. Kidneys: Mild left hydronephrosis to the UPJ, stable Normal right kidney GI tract: No dilation or wall thickening. Normal appendix. Lymph nodes: No abdominal or pelvic lymphadenopathy. Mesentery/Peritoneum: Soft tissue density within the mesentery about the vessels within the left abdomen approximately 1 cm thickness image 47, slightly less prominent from prior, previously up to 1.4 cm thickness. Retroperitoneum: No mass. Vasculature: - Abdominal aorta and iliac arteries: No aneurysm. - Celiac and SMA: Patent without stenosis. - Portal venous system (SMV, splenic vein, portal vein and branches): Patent. - Hepatic veins: Patent. Pelvis: No mass, ascites or fluid collection. Bones/Soft Tissues: Degenerative changes. Lower thorax: A chest CT performed will be reported separately. Localizer images: No additional findings. IMPRESSION: Soft tissue density within the mesentery, slightly less prominent from prior No new abdominopelvic adenopathy Stable left hydronephrosis to the UPJ Shuttle Fixer: SARA Transcribe Date/Time: Jan 03 2024 3:00P Dictated by : ARCHIE HOUSE MD This examination was interpreted and the report reviewed and electronically signed by: ARCHIE HOUSE MD on Jan 03 2024 3:30PM EST [id number] Normal [facility] CT CHEST W IVCONon 4 CT CHEST W IVCON * * *Final Report* * * DATE OF EXAM: Jan 01 2024 10:17AM [facility] 0539 - CT CHEST W IVCON / PROCEDURE REASON: 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) * * * * Physician Interpretation * * * * EXAMINATION: CHEST CT WITH CONTRAST CLINICAL HISTORY: Follow-up lymphoma Technique: Spiral CT acquisition of the chest from the thoracic inlet to the upper abdomen following IV contrast. MQ: CTCW_6 Contrast: 100 mL Omnipaque [address] Radiation dose: Integrated Dose-length product (DLP) for this visit = 386.16 mGy*cm CT Dose Reduction Employed: Automated exposure control(AEC) and iterative recon Comparison: 08/30/22 RESULT: Limitations: None. Lines, tubes, and devices: None. Lung parenchyma and airways: 3 mm nodule posterior left apex image 104, stable Pleural space: No pleural effusion. No pleural thickening. Lower neck, lymph nodes, and mediastinum: The imaged thyroid gland is normal. No lymphadenopathy in the supraclavicular, axillary, mediastinal, or hilar regions. Heart, pericardium, and thoracic vessels: The thoracic aorta and main pulmonary artery are normal in caliber. The cardiac chambers are normal in size. No coronary artery atherosclerotic calcifications are noted, although the study is not optimized for coronary assessment. No pericardial effusion or thickening. Bones and soft tissues: No destructive bone lesion. Chest wall is unremarkable. Upper abdomen: Reported separately. Localizer images: No additional findings. IMPRESSION: No new intrathoracic adenopathy Stable small lung nodule Shuttle Fixer: [facility] Transcribe Date/Time: Jan 03 2024 3:00P Dictated by : ARCHIE HOUSE MD This examination was interpreted and the report reviewed and electronically signed by: ARCHIE HOUSE MD on Jan 03 2024 3:29PM EST [id number] Normal [facility] CBC W Auto Differential pane l (Bld)on 12-31-2023 Basophils (Bld) [#/Vol] 0.03 10*3/uL Normal <0.11 [facility] Comment on above: Order Comment: Speci men Type: BLOOD SPECIMENOrdering Facility: [facility] Address: [address] [place] [address] Performed By: #### 5 7021-8 ####[facility] LABCLIA [id number] [place] [address] [place] Basophils/100 WBC (Bld) 0.6 % Normal [facility] Comment on above: Order Comment: Speci men Type: BLOOD SPECIMENOrdering Facility: [facility] Address: [address] [place] [address] Performed By: #### 5 7021-8 ####[facility] LABCLIA [id number] [place] [address] [place] Differential cell count method Nom (Bld) Auto Normal [facility] Comment on above: Order Comment: Speci men Type: BLOOD SPECIMENOrdering Facility: [facility] Address: [address] [place] [address] Performed By: #### 5 7021-8 ####[facility] LABCLIA [id number] [place] [address] [place] Eosinophils (Bld) [#/Vol] 0.06 10*3/uL Normal <0.46 [facility] Comment on above: Order Comment: Speci men Type: BLOOD SPECIMENOrdering Facility: [facility] Address: [address] [place] [address] Performed By: #### 5 7021-8 ####[facility] LABCLIA [id number] [place] [address] [place] Eosinophils/100 WBC (Bld) 1.3 % Normal [facility] Comment on above: Order Comment: Speci men Type: BLOOD SPECIMENOrdering Facility: [facility] Address: [address] [place] [address] Performed By: #### 5 7021-8 ####[facility] LABCLIA [id number] [place] [address] [place] Erythrocyte distribution width (RBC) [Ratio] 12.8 % Normal 11.5-15.0 [facility] Comment on above: Order Comment: Speci men Type: BLOOD SPECIMENOrdering Facility: [facility] Address: [address] [place] [address] Performed By: #### 5 7021-8 ####[facility] LABCLIA [id number] [place] [address] [place] Hematocrit (Bld) [Volume fraction] 39.7 % Normal 36.0-46.0 [facility] Comment on above: Order Comment: Speci men Type: BLOOD SPECIMENOrdering Facility: [facility] Address: [address] [place] [address] Performed By: #### 5 7021-8 ####[facility] LABCLIA [id number] [place] [address] [place] Hemoglobin (Bld) [Mass/Vol] 12.9 g/dL Normal 11.5-15.5 [facility] Comment on above: Order Comment: Speci men Type: BLOOD SPECIMENOrdering Facility: [facility] Address: [address] [place] [address] Performed By: #### 5 7021-8 ####[facility] LABCLIA [id number] [place] [address] [place] Immature granulocytes (Bld) [#/Vol] 10*3/uL Normal <0.10 [facility] Comment on above: Order Comment: Speci men Type: BLOOD SPECIMENOrdering Facility: [facility] Address: [address] [place] [address] Performed By: #### 5 7021-8 ####[facility] LABCLIA [id number] [place] [address] [place] Immature granulocytes/100 WBC (Bld) 0.2 % Normal [facility] Comment on above: Order Comment: Speci men Type: BLOOD SPECIMENOrdering Facility: [facility] Address: [address] [place] [address] Performed By: #### 5 7021-8 ####[facility] LABCLIA [id number] [place] [address] [place] Lymphocytes (Bld) [#/Vol] 1.18 10*3/uL Normal 1.00-4.00 [facility] Comment on above: Order Comment: Speci men Type: BLOOD SPECIMENOrdering Facility: [facility] Address: [address] [place] [address] Performed By: #### 5 7021-8 ####[facility] LABCLIA [id number] [place] [address] [place] Lymphocytes/100 WBC (Bld) 25.4 % Normal [facility] Comment on above: Order Comment: Speci men Type: BLOOD SPECIMENOrdering Facility: [facility] Address: [address] [place] [address] Performed By: #### 5 7021-8 ####[facility] LABIA [id number] [place] [address] [place] MCH (RBC) [Entitic mass] 32.8 pg Normal 26.0-34.0 [facility] Comment on above: Order Comment: Speci men Type: BLOOD SPECIMENOrdering Facility: [facility] Address: [address] [place] [address] Performed By: #### 5 7021-8 ####[facility] LABIA [id number] [place] [address] [place] MCHC (RBC) [Mass/Vol] 32.5 g/dL Normal 30.5-36.0 [facility] Comment on above: Order Comment: Speci men Type: BLOOD SPECIMENOrdering Facility: [facility] Address: [address] [place] [address] Performed By: #### 5 7021-8 ####[facility] [id number] [place] [address] [place] MCV (RBC) [Entitic vol] 101.0 fL High 80.0-100.0 [facility] Comment on above: Order Comment: Speci men Type: BLOOD SPECIMENOrdering Facility: [facility] Address: [address] [place] [address] Performed By: #### 5 7021-8 ####[facility]UN[facility] [id number] [place] [address] [place] Monocytes (Bld) [#/Vol] 0.49 10*3/uL Normal <0.87 [facility] Comment on above: Order Comment: Speci men Type: BLOOD SPECIMENOrdering Facility: [facility] Address: [address] [place] [address] Performed By: #### 5 7021-8 ####[facility] LABUNIV[facility] [id number] [place] [address] [place] Monocytes/100 WBC (Bld) 10.5 % Normal [facility] Comment on above: Order Comment: Speci men Type: BLOOD SPECIMENOrdering Facility: [facility] Address: [address] [place] [address] Performed By: #### 5 7021-8 ####[facility] LABCLIA [id number] [place] [address] [place] Neutrophils (Bld) [#/Vol] 2.88 10*3/uL Normal 1.45-7.50 [facility] Comment on above: Order Comment: Speci men Type: BLOOD SPECIMENOrdering Facility: [facility] Address: [address] [place] [address] Performed By: #### 5 7021-8 ####[facility] LABCLIA [id number] [place] [address] [place] Neutrophils/100 WBC (Bld) 62.0 % Normal [facility] Comment on above: Order Comment: Speci men Type: BLOOD SPECIMENOrdering Facility: [facility] Address: [address] [place] [address] Result Comment: Diff erential confirmed by visual scan of peripheral blood smear slide. Performed By: #### 5 7021-8 ####[facility] LABCLIA [id number] [place] [address] [place] Nucleated RBC (Bld) [#/Vol] 10*3/uL Normal <0.01 [facility] Comment on above: Order Comment: Speci men Type: BLOOD SPECIMENOrdering Facility: ST. [facility] Address: [address] [place] [address] Performed By: #### 5 7021-8 ####[facility] LABCLIA [id number] [place] [address] [place] Nucleated RBC/100 WBC (Bld) [Ratio] 0.0 /100 WBC Normal [facility] Comment on above: Order Comment: Speci men Type: BLOOD SPECIMENOrdering Facility: [facility] Address: [address] [place] [address] Performed By: #### 5 7021-8 ####[facility] LABIA [id number] [place] [address] [place] Platelet mean volume (Bld) [Entitic vol] 9.9 fL Normal 9.0-12.7 [facility] Comment on above: Order Comment: Speci men Type: BLOOD SPECIMENOrdering Facility: [facility] Address: [address] [place] [address] Performed By: #### 5 7021-8 ####[facility] LABIA [id number] [place] [address] [place] Platelets (Bld) [#/Vol] 387 10*3/uL Normal 150-400 [facility] Comment on above: Order Comment: Speci men Type: BLOOD SPECIMENOrdering Facility: [facility] Address: [address] [place] [address] Performed By: #### 5 7021-8 ####[facility] LABIA [id number] [place] [address] [place] RBC (Bld) [#/Vol] 3.93 10*6/uL Normal 3.90-5.20 [facility] Comment on above: Order Comment: Speci men Type: BLOOD SPECIMENOrdering Facility: [facility] Address: [address] [place] [address] Performed By: #### 5 7021-8 ####[facility] LABIA [id number] [place] [address] [place] WBC (Bld) [#/Vol] 4.65 10*3/uL Normal 3.70-11.00 [facility] Comment on above: Order Comment: Speci men Type: BLOOD SPECIMENOrdering Facility: [facility] Address: [address] [place] [address] Performed By: #### 5 7021-8 ####[facility] LABCLIA [id number] [place] [address] [place] Comprehensive metabolic 2000 panelon 12-31-2023 Albumin [Mass/Vol] 4.3 g/dL Normal 3.9-4.9 [facility] Comment on above: Order Comment: Speci men Type: BLOOD SPECIMENOrdering Facility: [facility] Address: [address] [place] [address] Performed By: #### 2 532-0, 45379-2 ####[facility] LABCLIA [id number] [place] [address] [place] ALP [Catalytic activity/Vol] 100 U/L Normal 34-123 [facility] Comment on above: Order Comment: Speci men Type: BLOOD SPECIMENOrdering Facility: [facility] Address: [address] [place] [address] Performed By: #### 2 532-0, 37474-6 ####[facility] LABIA [id number] [place] [address] [place] ALT [Catalytic activity/Vol] 12 U/L Normal 7-38 [facility] Comment on above: Order Comment: Speci men Type: BLOOD SPECIMENOrdering Facility: [facility] Address: [address] [place] [address] Performed By: #### 2 532-0, ####[facility] LABIA [id number] [place] [address] [place] Anion gap [Moles/Vol] 10 mmol/L Normal 8-15 [facility] Comment on above: Order Comment: Speci men Type: BLOOD SPECIMENOrdering Facility: [facility] Address: [address] [place] [address] Performed By: #### 2 532-0, 31170-3 ####[facility] LABIA [id number] [place] [address] [place] AST [Catalytic activity/Vol] 18 U/L Normal 13-35 [facility] Comment on above: Order Comment: Speci men Type: BLOOD SPECIMENOrdering Facility: [facility] Address: [address] [place] [address] Performed By: #### 2 532-0, 91338-1 ####[facility] LABCLIA [id number] [place] [address] [place] Bilirubin [Mass/Vol] 0.2 mg/dL Normal 0.2-1.3 [facility] Comment on above: Order Comment: Speci men Type: BLOOD SPECIMENOrdering Facility: [facility] Address: [address] [place] [address] Performed By: #### 2 532-0, 32184-1 ####[facility] LABCLIA [id number] [place] [address] [place] Calcium [Mass/Vol] 9.7 mg/dL Normal 8.5-10.2 [facility] Comment on above: Order Comment: Speci men Type: BLOOD SPECIMENOrdering Facility: [facility] Address: [address] [place] [address] Performed By: #### 2 532-0, 29670-6 ####[facility] LABCLIA [id number] [place] [address] [place] Chloride [Moles/Vol] 103 mmol/L Normal 98-107 [facility] Comment on above: Order Comment: Speci men Type: BLOOD SPECIMENOrdering Facility: [facility] Address: [address] [place] [address] Performed By: #### 2 532-0, 73946-2 ####[facility] LABCLIA [id number] [place] [address] [place] CO2 [Moles/Vol] 26 mmol/L Normal 22-30 [facility] Comment on above: Order Comment: Speci men Type: BLOOD SPECIMENOrdering Facility: [facility] Address: [address] [place] [address] Performed By: #### 2 532-0, 28351-5 ####[facility] [id number] [place] [address] [place] Creatinine [Mass/Vol] 0.86 mg/dL Normal 0.58-0.96 [facility] Comment on above: Order Comment: Speci men Type: BLOOD SPECIMENOrdering Facility: [facility] Address: [address] [place] [address] Performed By: #### 2 532-0, 09292-6 ####[facility] [id number] [place] [address] [place] Creatinine and Glomerular filtration rate.predicted panel (S/P/Bld) 77 mL/min/1.73m??? Normal >=60 [facility] Comment on above: Order Comment: Mandyi men Type: BLOOD SPECIMENOrdering Facility: [facility] Address: [address] [place] [address] Result Comment: Danielle mated Glomerular Filtration Rate (eGFR) is calculated using the 2020 CKD-EPI creatinine equation. This equation utilizes serum creatinine, sex, and age as parameters. The creatinine assay has traceable calibration to isotope dilution-mass spectrometry. Refer to KDIGO guidelines for clinical interpretation. In patients with unstable renal function, e.g. those with acute kidney injury, the eGFR may not accurately reflect actual GFR. Performed By: #### 2 532-0, 05580-9 ####[facility] LABIA [id number] [place] [address] [place] Glucose [Mass/Vol] 79 mg/dL Normal 74-99 [facility] Comment on above: Order Comment: Speci men Type: BLOOD SPECIMENOrdering Facility: [facility] Address: [address] [place] [address] Result Comment: The [place] [employer] (ADA) provides guidance for cutoff values for fasting glucose and random glucose. The ADA defines fasting as no caloric intake for at least 8 hours. Fasting plasma glucose results between 100 to 125 mg/dL indicate increased risk for diabetes (prediabetes). Fasting plasma glucose results greater than or equal to 126 mg/dL meet the criteria for diagnosis of diabetes. In the absence of unequivocal hyperglycemia, results should be confirmed by repeat testing. In a patient with classic symptoms of hyperglycemia or hyperglycemic crisis, random plasma glucose results greater than or equal to 200 mg/dL meet the criteria for diagnosis of diabetes. Reference: Standards of Medical Care in Diabetes 2016, [place] [employer]. Diabetes Care. 2016.39(Suppl 1). Performed By: #### 2 532-0, 94693-8 ####[facility] LABCLIA [id number] [place] [address] [place] Potassium [Moles/Vol] 4.8 mmol/L Normal 3.7-5.1 [facility] Comment on above: Order Comment: Speci men Type: BLOOD SPECIMENOrdering Facility: [facility] Address: [address] [place] [address] Performed By: #### 2 532-0, 56558-8 ####[facility] LABCLIA [id number] [place] [address] [place] Protein [Mass/Vol] 6.8 g/dL Normal 6.3-8.0 [facility] Comment on above: Order Comment: Speci men Type: BLOOD SPECIMENOrdering Facility: [facility] Address: [address] [place] [address] Performed By: #### 2 532-0, ####[facility] LABCLIA [id number] [place] [address] [place] Sodium [Moles/Vol] 139 mmol/L Normal 136-144 [facility] Comment on above: Order Comment: Speci men Type: BLOOD SPECIMENOrdering Facility: [facility] Address: [address] [place] [address] Performed By: #### 2 532-0, 87713-1 ####[facility] LABCLIA [id number] [place] [id number] [place] Urea nitrogen [Mass/Vol] 17 mg/dL Normal 7-21 [facility] Comment on above: Order Comment: Speci men Type: BLOOD SPECIMENOrdering Facility: [facility] Address: [address] [place] [address] Performed By: #### 2 532-0, 55913-2 ####[facility] LABCLIA [id number] [place] [address] [place] LDH SerPl-cCncon 12-31-2023 LDH [Catalytic activity/Vol] 163 U/L Normal 135-214 [facility] Comment on above: Order Comment: Speci men Type: BLOOD SPECIMENOrdering Facility: [facility] Address: [address] [place] [address] Performed By: #### 2 532-0, 53294-8 ####[facility] LABCLIA [id number] [place] [address] [place] Basophil percentageOrdered B y: Kushal Landaverde on 08-29-2023 Cholesterol [Mass/Vol] 152 mg/dL <200 [facility] Comment on above: <200 mg/dL Desirable 200-240 mg/dL Borderline >240 mg/dL High Risk Triglyceride [Mass/Vol] 85 mg/dL <199 [facility] Comment on above: The drugs N-Acetylcy steine and Metamizole may falsely depress this assay.Serum Triglycerides Reference Interval Normal <150 mg/dL Borderline high 150 - 199 mg/dL High 200 - 499 mg/dL Very High > or = 500 mg/dL Laboratory - Chemistry and C hemistry - challengeOrdered By: Kushal Landaverde on 08-29-2023 Cholesterol in HDL [Mass/Vol] 69 mg/dL >40 [facility] Comment on above: The drugs N-Acetylcy steine and Metamizole may falsely depress this assay. Reference Range HDL <40 mg/dL Low HDL Cholesterol HDL >or= 60 mg/dL High HDL Cholesterol Cholesterol in LDL [Mass/Vol] 66 mg/dL 0-130 [facility] No Panel InformationOrdered By: Kushal Landaverde on 08-29-2023 Ionized Calcium 5.06 mg/dL 4.36-5.20 [facility] VLDL Cholesterol 17 mg/dL 5-40 [facility] Basophil percentageOrdered B y: Kushal Landaverde on 08-24-2023 Chloride [Moles/Vol] 106 mmol/L 98-107 [facility] Glucose [Mass/Vol] 93 mg/dL 74-106 [facility] Potassium [Moles/Vol] 3.5 mmol/L 3.5-5.1 [facility] Sodium [Moles/Vol] 140 mmol/L 136-145 [facility] Laboratory - Chemistry and C hemistry - challengeOrdered By: Kushal Landaverde on 08-24-2023 CO2 [Moles/Vol] 29.0 mmol/L 21.0-32.0 [facility] Magnesium [Mass/Vol] 2.3 mg/dL 1.6-2.6 [facility] Urea nitrogen/Creatinine [Mass ratio] 16.0 mg/mg 10-20 [facility] No Panel InformationOrdered By: Kushal Landaverde on 08-24-2023 Estimated GFR (MDRD) Amer 92 mL/min >60 [facility] Comment on above: GFR Calc Estimated GFR (MDRD) Non-Af Amer 76 mL/min >60 [facility] Comment on above: Non- GFR Calc Parathyroid Hormone (Intact) 37.4 pg/mL 18.4-80.1 [facility] Vitamin D 25-Hydroxy 48.5 ng/mL [facility] Comment on above: Vitamin D 25(OH) Sta tus Range Deficiency <20 ng/mL (50nmol/L) Insufficiency 20 - 30 ng/mL (50 - 75 nmol/L) Sufficiency 30 - 100 ng/mL (75 - 250 nmol/L) Toxicity >100 ng/mL (>250 nmol/L) Serum or plasma calcium james urement (mass/volume)Ordered By: Kushal Landaverde on 08-24-2023 Calcium [Mass/Vol] 9.6 mg/dL 8.5-10.1 [facility] Serum or plasma creatinine m easurement (mass/volume)Ordered By: Kushal Landaverde on 08-24-2023 Creatinine [Mass/Vol] 0.81 mg/dL 0.55-1.02 [facility] Comment on above: The validity of the calculated GFR & GFRAA in patients over 70 years has not been determined. Clinical correlation is essential. Serum or plasma thyroid stim ulating hormone (TSH) measurement (units/volume)Ordered By: Kushal Landaverde on 08-24-2023 TSH Qn 1.57 uIU/mL 0.358-3.74 [facility] Serum or plasma urea nitroge n measurement (mass/volume)Ordered By: Kushal Landaverde on 08-24-2023 Urea nitrogen [Mass/Vol] 13 mg/dL 7-18 [facility] Thin prep Papanicolaou smear with manual screeningOrdered By: Kushal Landaverde on 08-24-2023 Thin prep Papanicolaou smear with manual screening 5 10-30 [facility] Culture, urineOrdered By: Rosi Torres on 03-08-2023 Bacteria identified Cx Nom (U) Escherichia coli [facility] No Panel Informationon 08-30 [facility] BENJAMIN SCREENINGon 02-15-2022 [facility] CREATININE, BLOOD (POC)on Creatinine [Mass/Vol] 0.70 mg/dL 0.7 - 1.4 mg/dL [facility] eGFR (POCT) [facility] No Panel Informationon 02-08 [facility] CBC W Auto Differential pane l (Bld)on 12-28-2021 Abs Immature Gran <0.03 <0.10 k/uL [facility] Erythrocyte distribution width (RBC) [Ratio] 12.2 % 11.5 - 15.0 % [facility] Hematocrit (Bld) [Volume fraction] 38.2 % 36.0 - 46.0 % [facility] Hemoglobin (Bld) [Mass/Vol] 13.2 g/dL 11.5 - 15.5 g/dL [facility] MCH (RBC) [Entitic mass] 34.6 pg High 26.0 - 34.0 pg [facility] MCHC (RBC) [Mass/Vol] 34.6 g/dL 30.5 - 36.0 g/dL [facility] MCV (RBC) [Entitic vol] 100.3 fL High 80.0 - 100.0 fL [facility] Neutrophils (Bld) [#/Vol] 2.82 10*3/uL 1.45 - 7.50 k/uL [facility] Nucleated RBC (Bld) [#/Vol] 10*3/uL <0.01 k/uL [facility] Platelet mean volume (Bld) [Entitic vol] 9.8 fL 9.0 - 12.7 fL [facility] Platelets (Bld) [#/Vol] 275 10*3/uL 150 - 400 k/uL [facility] RBC (Bld) [#/Vol] 3.81 10*6/uL Low 3.90 - 5.2 0 m/uL [facility] WBC (Bld) [#/Vol] 4.32 10*3/uL 3.70 - 11.00 k/uL [facility] Comprehensive metabolic 2000 panelon 12-28-2021 Albumin [Mass/Vol] 4.2 g/dL 3.9 - 4.9 g/dL [facility] ALP [Catalytic activity/Vol] 86 U/L 34 - 123 U/L [facility] ALT [Catalytic activity/Vol] 16 U/L 7 - 38 U/L [facility] Anion gap [Moles/Vol] 12 mmol/L 9 - 18 mmol/L [facility] AST [Catalytic activity/Vol] 38 U/L High 13 - 35 U/L [facility] Bilirubin [Mass/Vol] 0.2 mg/dL 0.2 - 1 .3 mg/dL [facility] Calcium [Mass/Vol] 9.1 mg/dL 8.5 - 10. 2 mg/dL [facility] Chloride [Moles/Vol] 107 mmol/L High 97 - 10 5 mmol/L [facility] CO2 [Moles/Vol] 20 mmol/L Low 22 - 30 mmol/L [facility] Creatinine [Mass/Vol] 0.63 mg/dL 0.58 - 0.96 mg/dL [facility] Estimated Glomerular Filtration Rate 103 mL/min/1.73m >=60 mL/min/1.73 m [facility] Glucose [Mass/Vol] 90 mg/dL 74 - 99 mg/dL [facility] Potassium [Moles/Vol] [facility] Protein [Mass/Vol] 6.8 g/dL 6.3 - 8.0 g/dL [facility] Sodium [Moles/Vol] 139 mmol/L 136 - 144 mmol/L [facility] Urea nitrogen [Mass/Vol] 13 mg/dL 7 - 21 mg/dL [facility] CBC W Auto Differential pane l (Bld)on 11-30-2021 Abs Immature Gran <0.03 <0.10 k/uL [facility] Basophils (Bld) [#/Vol] 10*3/uL <0.11 k/uL [facility] Basophils/100 WBC (Bld) 0.5 % [facility] Differential cell count method Nom (Bld) Auto [facility] Eosinophils (Bld) [#/Vol] 0.46 10*3/uL High <0.46 k/uL [facility] Eosinophils/100 WBC (Bld) 11.5 % [facility] Erythrocyte distribution width (RBC) [Ratio] 12.2 % 11.5 - 15.0 % [facility] Hematocrit (Bld) [Volume fraction] 38.1 % 36.0 - 46.0 % [facility] Hemoglobin (Bld) [Mass/Vol] 13.0 g/dL 11.5 - 15.5 g/dL [facility] Immature Gran % 0.3 % [facility] Lymphocytes (Bld) [#/Vol] 0.40 10*3/uL Low 1.00 - 4.00 k/uL [facility] Lymphocytes/100 WBC (Bld) 10.0 % [facility] MCH (RBC) [Entitic mass] 33.8 pg 26.0 - 34.0 pg [facility] MCHC (RBC) [Mass/Vol] 34.1 g/dL 30.5 - 36.0 g/dL [facility] MCV (RBC) [Entitic vol] 99.0 fL 80.0 - 100.0 fL [facility] Monocytes (Bld) [#/Vol] 0.59 10*3/uL <0.87 k/uL [facility] Monocytes/100 WBC (Bld) 14.8 % [facility] Neutrophils (Bld) [#/Vol] 2.51 10*3/uL 1.45 - 7.50 k/uL [facility] Neutrophils/100 WBC (Bld) 62.9 % [facility] Nucleated RBC (Bld) [#/Vol] 10*3/uL <0.01 k/uL [facility] Nucleated RBC/100 WBC (Bld) [Ratio] 0.0 /100 WBC [facility] Platelet mean volume (Bld) [Entitic vol] 9.7 fL 9.0 - 12.7 fL [facility] Platelets (Bld) [#/Vol] 275 10*3/uL 150 - 400 k/uL [facility] RBC (Bld) [#/Vol] 3.85 10*6/uL Low 3.90 - 5.2 0 m/uL [facility] WBC (Bld) [#/Vol] 3.99 10*3/uL 3.70 - 11.00 k/uL [facility] Comprehensive metabolic 2000 panelon 11-30-2021 Albumin [Mass/Vol] 4.1 g/dL 3.9 - 4.9 g/dL [facility] ALP [Catalytic activity/Vol] 83 U/L 34 - 123 U/L [facility] ALT [Catalytic activity/Vol] 20 U/L 7 - 38 U/L [facility] Anion gap [Moles/Vol] 11 mmol/L 9 - 18 mmol/L [facility] AST [Catalytic activity/Vol] 30 U/L 13 - 35 U/L [facility] Bilirubin [Mass/Vol] 0.3 mg/dL 0.2 - 1 .3 mg/dL [facility] Calcium [Mass/Vol] 9.5 mg/dL 8.5 - 10. 2 mg/dL [facility] Chloride [Moles/Vol] 107 mmol/L High 97 - 10 5 mmol/L [facility] CO2 [Moles/Vol] 24 mmol/L 22 - 30 mmol/L [facility] Creatinine [Mass/Vol] 0.77 mg/dL 0.58 - 0.96 mg/dL [facility] Estimated Glomerular Filtration Rate 90 mL/min/1.73m >=60 mL/min/1.73 m [facility] Glucose [Mass/Vol] 90 mg/dL 74 - 99 mg/dL [facility] Potassium [Moles/Vol] 4.3 mmol/L 3.7 - 5.1 mmol/L [facility] Protein [Mass/Vol] 6.8 g/dL 6.3 - 8.0 g/dL [facility] Sodium [Moles/Vol] 142 mmol/L 136 - 144 mmol/L [facility] Urea nitrogen [Mass/Vol] 10 mg/dL 7 - 21 mg/dL [facility] No Panel Informationon 11-01 [facility] NM PET/CT SKULL-THIGH INITon 08-09-2021 NM PET/CT SKULL-THIGH INIT * * *Final Report* * * DATE OF EXAM: Aug 09 2021 10:49AM MDP 0060 - NM PET/CT SKULL-THIGH INIT / PROCEDURE REASON: 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 INDICATION: Initial treatment strategy. TECHNIQUE: 7.3 mCi 18-FDG IV, followed about 1 hour later by PET imaging from base of the skull to proximal femur. Non contrast CT was performed for attenuation correction and anatomic localization purposes. CT Dose-Length Product (DLP): 333 mGy*cm. CT Dose Reduction Employed: Yes Correlation: CT abdomen and pelvis dated 07/29/2021 RESULT: Reference mediastinal blood pool SUV 2.5, liver SUV 3 NECK: Likely physiological activity in the oral cavity, tonsillar regions, salivary glands. Hypermetabolic left supraclavicular lymph nodes measuring up to 1.9 x 1.4 cm (max SUV 9.7). CHEST: There is no hypermetabolic hilar or mediastinal lymphadenopathy. There is no hypermetabolic axillary lymphadenopathy. There are no hypermetabolic foci in the lungs. ABDOMEN AND PELVIS: The liver is slightly heterogeneous activity but no focal lesions are identified. There are no hypermetabolic foci in the liver, spleen, adrenals. Dilated left renal pelvis/proximal ureter. Multiple hypermetabolic lymph nodes involving retrocrural, periportal, gastrohepatic, peripancreatic, portacaval, aortocaval, left para-aortic and mesenteric regions. For example a dominant mesenteric conglomerate in the left midabdomen measures about 4.5 x 12 cm (max SUV 8.5). A Left para-aortic conglomerate measures about 3.6 x 2.4 cm (max SUV 10.2). Physiologic activity is noted in the liver, renal collecting system, bladder and bowel. SKELETON: There are no hypermetabolic osseous lesions. Merchandise Execution Leader (topogram) images:No additional findings. IMPRESSION: 1. Neck: Hypermetabolic left supraclavicular lymphadenopathy. 2. Chest: No evidence of FDG avid neoplastic process 3. Abdomen and pelvis: Hypermetabolic retroperitoneal and mesenteric lymphadenopathy. 4. Skeleton: No hypermetabolic osseous lesions Deauville criteria score: 5. Shuttle Fixer: SARA Transcribe Date/Time: Aug 09 2021 11:19A Dictated by : TRUDY KIRKLAND MD This examination was interpreted and the report reviewed and electronically signed by: TRUDY KIRKLAND MD on Aug 09 2021 11:28AM EST [id number] Normal [facility] STEREO BX BREAST LTon [facility] STEREO BX BREAST LT * * *Final Report* * * * * * SEE BOTTOM OF REPORT FOR ADDENDED TEXT * * * DATE OF EXAM: Oct 23 2019 2:24PM [id number] [id number] - [facility] STEREO BX BREAST LT / PROCEDURE REASON: Abnormal finding on breast imaging * * * * Physician Interpretation * * * * FINAL REPORT #[id number] - [facility] STEREO BX BREAST LT DIGITAL TOMOGRAPHIC MAMMOGRAPHY GUIDED STEREOTACTIC GUIDED BIOPSY LEFT BREAST WITH MARKING DEVICE INSERTED AND POST DIGITAL MAMMOGRAPHIC IMAGIN10/23/2019 HISTORY: Patient presents for a stereotactic guided biopsy of the left breast. PATIENT CONSENT: The risks, benefits and alternatives were discussed with the patient. Written and verbal consent was obtained from the patient before the procedure began. The patient was identified by name and date of . Site verification was done prior to the procedure. Audible Time Out: 1314 Procedure Start: 1315 Procedure End: 1325 PROCEDURE: Correlation is made to exams dated: 10/21/2019 ultrasound, 10/21/2019 mammogram, 10/21/2019 mammogram, and 08/07/2019 mammogram - [facility]. A stereotactic guided biopsy was performed for the concerning area of architectural distortion located in the left breast at 1 o'clock middle depth. This was described on the previous mammography report. The skin was prepped in the usual manner. Local anesthetic was administered to the access site. A skin mason was made in the breast. The abnormality was approached from the lateral aspect using an upright digital tomographic mammography unit. A 9 gauge biopsy needle was placed adjacent to the abnormality under computer guidance and confirmatory stereotactic mammography images were obtained to document needle placement. Once the needle was documented to be in the correct location, six specimens were obtained using a 9 guage Suros Eviva vacuum assisted biopsy needle. A top hat clip was inserted into the biopsy cavity. A skin closure strip was applied to the access site. Post procedure digital mammographic imaging demonstrates the location device at the targeted area. The specimens were sent to the laboratory for pathological analysis. IMPRESSION: STEREOTACTIC GUIDED BIOPSY BENIGN Stereotactic guided biopsy of the area of architectural distortion in the left breast at 1 o'clock middle depth was successful. Pathology indicates benign normal breast tissue (NBT) and stromal fibrosis. Pathology results are concordant with imaging findings. A follow-up mammogram in 6 months is recommended to demonstrate stability. SUMMARY: The patient lives in [place]. Followup diagnostic mammogram with tomosynthesis images can be done at the [place] site. Ben fuentes/blanca:10/30/2019 13:06:42 Dimpling Machine Operator(s): RT Thais(R)(M), [facility] Multiple national specialty organizations have released breast cancer screening guidelines for women at average risk for developing breast cancer - guidelines that are based on both evidence and opinion, yet differ on when to start and how often to screen for breast cancer. With representation from Breast Imaging, Internal Medicine, Women's Health, Family Medicine, and Medical/Surgical Oncology, the [facility] has carefully reviewed the data and reached the following consensus: 1) All women should engage in shared decision-making with their providers to decide when to start and how often to screen; 2) All women should have the opportunity to start screening mammography at age 40; 3) For women ages 45-55, we recommend annual screening mammograms; 4) For women ages 55 and over, we support both the transition from an annual to a biennial interval if this aligns more with patient's values and preferences, or continuation with annual screening; 5) All women should discuss with their providers when to stop screening mammograms. Shuttle Fixer: Blanca Transcribe Date/Time: Oct 23 2019 12:58P Dictated by : BEN CAMERON MD This examination was interpreted and the report reviewed and electronically signed by: BEN CAMERON MD on Oct 23 2019 2:37PM EST This document has been addended by: BEN CAMERON MD on Oct 30 2019 1:06PM EST Normal [facility] Surgical Tissue Examon 10-22 Surgical Tissue Exam Test performed at [place] [address] NAME: JOSEPHINE RENEE REQUESTING: JOVI HEREDIA M.D. COPY TO: BEN CAMERON; [facility] RADIOLOGY FINAL DIAGNOSIS: BREAST, LEFT, 2 O'CLOCK, BIOPSY - BENIGN BREAST PARENCHYMA WITH STROMAL FIBROSIS. OPERATIVE PROCEDURE: Left breast stereotactic biopsy CLINICAL INFORMATION: Left breast architectural distortion 2 o'clock, Top hat clip; Collected 2:05 pm, Formalin 2:10 pm GROSS DESCRIPTION: Left breast Received in formalin labeled left breast are multiple yellow-white soft segments of tissue aggregating to 2.8 x 2.0 x 0.7 cm. The specimens are totally submitted in formalin in 2 cassettes. Time removed from patient 2:05 pm. Time placed in formalin 2:10 pm. KVB/autumn OLIVARES M.D.,PATHOLOGIST (Electronic signature on file) Signed out: 10/27/2019 17:16 PRINTED: 10/27/2019 Page 1 of 1 Normal [facility] Comment on above: Performed By: #### S URG #### [address] [address] Vital Signs Date Time Vital Sign Value Performing Clinician Facility 11-24-2024 10:56-0400 Body mass index (BMI) [Ratio] 22.18 kg/m2 Frank Vaughn MD Work Phone: [facility] 11-24-2024 10:56-0400 Body temperature 98.49 [degF] Frank Vaughn MD Work Phone: [facility] 11-24-2024 10:56-0400 Body weight 56.8 kg Frank Vaughn MD Work Phone: [facility] 11-24-2024 10:56-0400 Diastolic blood pressure 70 mm[Hg] Frank Vaughn MD Work Phone: [facility] 11-24-2024 10:56-0400 Heart rate 66 /min Frank Vaughn MD Work Phone: [facility] 11-24-2024 10:56-0400 SaO2% (BldA) [Mass fraction] 98 % Frank Vaughn MD Work Phone: [facility] 11-24-2024 10:56-0400 Systolic blood pressure 124 mm[Hg] Frank Vaughn MD Work Phone: [facility] 10-20-2024 09:23-0400 Body height 160 cm Pacc 1 Work Phone: [facility] 10-20-2024 09:23-0400 Body mass index (BMI) [Ratio] 21.79 kg/m2 Pacc 1 Work Phone: [facility] 10-20-2024 09:23-0400 Body temperature 98.01 [degF] Pacc 1 Work Phone: [facility] 10-20-2024 09:23-0400 Body weight 55.79 kg Pacc 1 Work Phone: [facility] 10-20-2024 09:23-0400 Diastolic blood pressure 72 mm[Hg] Pacc 1 Work Phone: [facility] 10-20-2024 09:23-0400 Heart rate 83 /min Pacc 1 Work Phone: [facility] 10-20-2024 09:23-0400 Respiratory rate 14 /min Pacc 1 Work Phone: [facility] 10-20-2024 09:23-0400 SaO2% (BldA) [Mass fraction] 99 % Pacc 1 Work Phone: [facility] 10-20-2024 09:23-0400 Systolic blood pressure 102 mm[Hg] Pacc 1 Work Phone: [facility] 09-22-2024 13:08-0400 Body height 161.3 cm Frank Vaughn MD Work Phone: [facility] 09-22-2024 13:08-0400 Body mass index (BMI) [Ratio] 21.14 kg/m2 Frank Vaughn MD Work Phone: [facility] 09-22-2024 13:08-0400 Body temperature 98.71 [degF] Frank Vaughn MD Work Phone: [facility] 09-22-2024 13:08-0400 Body weight 55 kg Frank Vaughn MD Work Phone: [facility] 09-22-2024 13:08-0400 Diastolic blood pressure 75 mm[Hg] Frank Vaughn MD Work Phone: [facility] 09-22-2024 13:08-0400 Heart rate 69 /min Frank Vaughn MD Work Phone: [facility] 09-22-2024 13:08-0400 SaO2% (BldA) [Mass fraction] 100 % Frank Vaughn MD Work Phone: [facility] 09-22-2024 13:08-0400 Systolic blood pressure 135 mm[Hg] Frank Vaughn MD Work Phone: [facility] 08-26-2024 15:43-0400 Body temperature 97.3 [degF] Dr. Sergio Landaverde MD Work Phone: [facility] 08-26-2024 15:43-0400 Diastolic blood pressure 71 mm[Hg] Dr. Sergio Landaverde MD Work Phone: [facility] 08-26-2024 15:43-0400 Heart rate 52 /min Dr. Sergio Landaverde MD Work Phone: [facility] 08-26-2024 15:43-0400 Respiratory rate 16 /min Dr. Sergio Landaverde MD Work Phone: [facility] 08-26-2024 15:43-0400 SaO2% (BldA) [Mass fraction] 100 % Dr. Sergio Landaverde MD Work Phone: [facility] 08-26-2024 15:43-0400 Systolic blood pressure 129 mm[Hg] Dr. Sergio Landaverde MD Work Phone: 6(567)415-338051 [place] [address] 08-26-2024 11:46-0400 Body height 160.[address] Sergio Landaverde MD Work Phone: 7(980)928-320507 [place] [address] 08-26-2024 11:46-0400 Body mass index (BMI) [Ratio] 21.9 kg/m2 Dr. Sergio Landaverde MD Work Phone: 3(343)300-449207 [place] [address] 08-26-2024 11:46-0400 Body weight [address] Sergio Landaverde MD Work Phone: 3(513)322-075607 [place] [address] 07-28-2024 09:37-0500 Body mass index (BMI) [Ratio] 22.1 kg/m2 Dr. Sergio Landaverde MD Work Phone: 4(452)474-481607 [place] [address] 07-28-2024 09:37-0500 Body weight 56.[address] Sergio Landaverde MD Work Phone: 0(130)708-566407 [place] [address] 07-28-2024 09:37-0500 Diastolic blood pressure 78 mm[Hg] Dr. Sergio Landaverde MD Work Phone: 0(739)209-883707 [place] [address] 07-28-2024 09:37-0500 Systolic blood pressure 144 mm[Hg] Dr. Sergio Landaverde MD Work Phone: 8(495)831-152007 [place] [address] 07-11-2024 09:07-0500 Body mass index (BMI) [Ratio] 22 kg/m2 Dr. Sergio Landaverde MD Work Phone: 8(833)169-918907 [place] [address] 07-11-2024 09:07-0500 Body weight 56.[address] Sergio Landaverde MD Work Phone: 0(156)981-255407 [place] [address] 07-11-2024 09:07-0500 Diastolic blood pressure 81 mm[Hg] Dr. Sergio Landaverde MD Work Phone: 0(910)977-215007 [place] [address] 07-11-2024 09:07-0500 Systolic blood pressure 135 mm[Hg] Dr. Sergio Landaverde MD Work Phone: 2(911)520-307007 [place] [address] 07-07-2024 08:04-0500 Body mass index (BMI) [Ratio] 21.9 kg/m2 Dr. Sergio Landaverde MD Work Phone: [facility] 07-07-2024 08:04-0500 Body temperature 98.5 [degF] Dr. Sergio Landaverde MD Work Phone: [facility] 07-07-2024 08:04-0500 Body weight 56.[address] Sergio Landaverde MD Work Phone: [facility] 07-07-2024 08:04-0500 Diastolic blood pressure 80 mm[Hg] Dr. Sergio Landaverde MD Work Phone: [facility] 07-07-2024 08:04-0500 Heart rate 70 /min Dr. Sergio Landaverde MD Work Phone: 6(151)936-793051 [place] [address] 07-07-2024 08:04-0500 Respiratory rate 16 /min Dr. Sergio Landaverde MD Work Phone: [facility] 07-07-2024 08:04-0500 SaO2% (BldA) [Mass fraction] 100 % Dr. Sergio Landaverde MD Work Phone: [facility] 07-07-2024 08:04-0500 Systolic blood pressure 129 mm[Hg] Dr. Sergio Landaverde MD Work Phone: [facility] 07-02-2024 11:13-0500 Body height 161.3 cm Karo Hill MD Work Phone: [facility] 07-02-2024 11:13-0500 Body mass index (BMI) [Ratio] 21.37 kg/m2 Karo Hill MD Work Phone: [facility] 07-02-2024 11:13-0500 Body temperature 98.01 [degF] Karo Hill MD Work Phone: [facility] 07-02-2024 11:13-0500 Body weight 55.6 kg Karo Hill MD Work Phone: [facility] 07-02-2024 11:13-0500 Diastolic blood pressure 73 mm[Hg] Karo Hill MD Work Phone: [facility] 07-02-2024 11:13-0500 Heart rate 65 /min Karo Hill MD Work Phone: [facility] 07-02-2024 11:13-0500 Respiratory rate 16 /min Karo Hill MD Work Phone: [facility] 07-02-2024 11:13-0500 SaO2% (BldA) [Mass fraction] 99 % Karo Hill MD Work Phone: [facility] 07-02-2024 11:13-0500 Systolic blood pressure 141 mm[Hg] Karo Hill MD Work Phone: [facility] 01-02-2024 13:33-0400 Body mass index (BMI) [Ratio] 21 kg/m2 Christroryer Danielle'Joseph PA-C Work Phone: [facility] 01-02-2024 13:33-0400 Body temperature 98.49 [degF] Christopher D'Joseph PA-C Work Phone: [facility] 01-02-2024 13:33-0400 Body weight 55.1 kg Christopher D'Joseph PA-C Work Phone: [facility] Comment on above: shoes on 01-02-2024 13:33-0400 Diastolic blood pressure 68 mm[Hg] Bolaopher D'Joseph PA-C Work Phone: [facility] 01-02-2024 13:33-0400 Heart rate 63 /min Christroryer D'Joseph PA-C Work Phone: [facility] 01-02-2024 13:33-0400 Respiratory rate 18 /min Christopher D'Joseph PA-C Work Phone: [facility] 01-02-2024 13:33-0400 SaO2% (BldA) [Mass fraction] 100 % Sergio Plascencia PA-C Work Phone: [facility] 01-02-2024 13:33-0400 Systolic blood pressure 125 mm[Hg] Sergio Plascencia PA-C Work Phone: [facility] 08-03-2023 11:21-0500 Body temperature 97.5 [degF] [facility] 08-03-2023 11:21-0500 Diastolic blood pressure 62 mm[Hg] [facility] 08-03-2023 11:21-0500 Heart rate 68 /min [facility] 08-03-2023 11:21-0500 Respiratory rate 18 /min [facility] 08-03-2023 11:21-0500 SaO2% (BldA) [Mass fraction] 99 % [facility] 08-03-2023 11:21-0500 Systolic blood pressure 107 mm[Hg] [facility] 08-03-2023 07:47-0500 Body height 160.02 cm [facility] 08-03-2023 07:47-0500 Body mass index (BMI) [Ratio] 21.6 kg/m2 [facility] 08-03-2023 07:47-0500 Body weight 55.33 kg [facility] 09-22-2022 12:47-0400 Body temperature 98.3 [degF] [facility] 09-22-2022 12:47-0400 Diastolic blood pressure 60 mm[Hg] [facility] 09-22-2022 12:47-0400 Heart rate 70 /min [facility] 09-22-2022 12:47-0400 Respiratory rate 16 /min [facility] 09-22-2022 12:47-0400 SaO2% (BldA) [Mass fraction] 98 % [facility] 09-22-2022 12:47-0400 Systolic blood pressure 100 mm[Hg] [facility] 09-22-2022 06:21-0400 Body height 160.02 cm [facility] 09-22-2022 06:21-0400 Body mass index (BMI) [Ratio] 21.4 kg/m2 [facility] 09-22-2022 06:21-0400 Body weight 55 kg [facility] 09-01-2022 09:04-0400 Body temperature 97.9 [degF] Karo Hill MD Work Phone: [facility] 09-01-2022 09:04-0400 Body weight 55.11 kg Karo Hill MD Work Phone: [facility] 09-01-2022 09:04-0400 Diastolic blood pressure 68 mm[Hg] Karo Hill MD Work Phone: [facility] 09-01-2022 09:04-0400 Heart rate 70 /min Karo Hill MD Work Phone: [facility] 09-01-2022 09:04-0400 Respiratory rate 20 /min Karo Hill MD Work Phone: [facility] 09-01-2022 09:04-0400 SaO2% (BldA) [Mass fraction] 99 % Karo Hill MD Work Phone: [facility] 09-01-2022 09:04-0400 Systolic blood pressure 127 mm[Hg] Karo Hill MD Work Phone: [facility] 06-01-2022 10:01-0500 Body weight 56.2 kg My Borges MD Work Phone: [facility] 06-01-2022 10:01-0500 Diastolic blood pressure 82 mm[Hg] My Borges MD Work Phone: [facility] 06-01-2022 10:01-0500 Systolic blood pressure 132 mm[Hg] My Borges MD Work Phone: [facility] 03-17-2022 09:46-0400 Body height 161.5 cm My Borges MD Work Phone: [facility] 03-17-2022 09:46-0400 Body weight 53.98 kg My Borges MD Work Phone: [facility] 03-17-2022 09:46-0400 Diastolic blood pressure 60 mm[Hg] My Borges MD Work Phone: [facility] 03-17-2022 09:46-0400 Systolic blood pressure 100 mm[Hg] My Borges MD Work Phone: [facility] 02-13-2022 08:47-0400 Body weight 55.25 kg My Borges MD Work Phone: [facility] 02-13-2022 08:47-0400 Diastolic blood pressure 70 mm[Hg] My Borges MD Work Phone: [facility] 02-13-2022 08:47-0400 Systolic blood pressure 106 mm[Hg] My Borges MD Work Phone: [facility] 02-10-2022 10:19-0400 Body temperature 98.01 [degF] Karo Hill MD Work Phone: [facility] 02-10-2022 10:19-0400 Body weight 54.8 kg Karo Hill MD Work Phone: [facility] 02-10-2022 10:19-0400 Diastolic blood pressure 65 mm[Hg] Karo Hill MD Work Phone: [facility] 02-10-2022 10:19-0400 Heart rate 63 /min Kaor Hill MD Work Phone: [facility] 02-10-2022 10:19-0400 Respiratory rate 16 /min Karo Hill MD Work Phone: [facility] 02-10-2022 10:19-0400 SaO2% (BldA) [Mass fraction] 100 % Karo Hill MD Work Phone: [facility] 02-10-2022 10:19-0400 Systolic blood pressure 129 mm[Hg] Karo Hill MD Work Phone: [facility] 12-29-2021 09:40-0400 Body temperature 98.4 [degF] Chair Joseph/Bmt Work Phone: [facility] 12-29-2021 09:40-0400 Diastolic blood pressure 71 mm[Hg] Chair Joseph/Bmt Work Phone: [facility] 12-29-2021 09:40-0400 Heart rate 69 /min Chair Joseph/Bmt Work Phone: [facility] 12-29-2021 09:40-0400 Respiratory rate 18 /min Chair Joseph/Bmt Work Phone: [facility] 12-29-2021 09:40-0400 Systolic blood pressure 113 mm[Hg] Chair Joseph/Bmt Work Phone: [facility] 12-28-2021 10:56-0400 Body temperature 97.39 [degF] Karo Hill MD Work Phone: [facility] 12-28-2021 10:56-0400 Body weight 54.2 kg Karo Hill MD Work Phone: [facility] 12-28-2021 10:56-0400 Diastolic blood pressure 80 mm[Hg] Karo Hill MD Work Phone: [facility] 12-28-2021 10:56-0400 Heart rate 65 /min Karo Hill MD Work Phone: [facility] 12-28-2021 10:56-0400 Respiratory rate 18 /min Karo Hill MD Work Phone: [facility] 12-28-2021 10:56-0400 SaO2% (BldA) [Mass fraction] 100 % Karo Hill MD Work Phone: [facility] 12-28-2021 10:56-0400 Systolic blood pressure 126 mm[Hg] Karo Hill MD Work Phone: [facility] 12-01-2021 08:50-0400 Body temperature 97.81 [degF] Chair Joseph/Bmt Work Phone: [facility] 12-01-2021 08:50-0400 Diastolic blood pressure 76 mm[Hg] Chair Joseph/Bmt Work Phone: [facility] 12-01-2021 08:50-0400 Heart rate 76 /min Chair Joseph/Bmt Work Phone: [facility] 12-01-2021 08:50-0400 Respiratory rate 18 /min Chair Joseph/Bmt Work Phone: [facility] 12-01-2021 08:50-0400 Systolic blood pressure 96 mm[Hg] Chair Joseph/Bmt Work Phone: [facility] 11-30-2021 11:04-0400 Body temperature 98.6 [degF] Karo Hill MD Work Phone: [facility] 11-30-2021 11:04-0400 Body weight 53.52 kg Karo Hill MD Work Phone: [facility] 11-30-2021 11:04-0400 Diastolic blood pressure 74 mm[Hg] Krao Hill MD Work Phone: [facility] 11-30-2021 11:04-0400 Heart rate 85 /min Karo Hill MD Work Phone: [facility] 11-30-2021 11:04-0400 Respiratory rate 18 /min Karo Hill MD Work Phone: [facility] 11-30-2021 11:04-0400 SaO2% (BldA) [Mass fraction] 100 % Karo Hill MD Work Phone: [facility] 11-30-2021 11:04-0400 Systolic blood pressure 119 mm[Hg] Karo Hill MD Work Phone: [facility] 11-03-2021 09:29-0400 Body temperature 98.1 [degF] Chair Joseph/Bmt Work Phone: [facility] 11-03-2021 09:29-0400 Diastolic blood pressure 88 mm[Hg] Chair Joseph/Bmt Work Phone: [facility] 11-03-2021 09:29-0400 Heart rate 74 /min Chair Joseph/Bmt Work Phone: [facility] 11-03-2021 09:29-0400 Respiratory rate 16 /min Chair Joseph/Bmt Work Phone: [facility] 11-03-2021 09:29-0400 Systolic blood pressure 141 mm[Hg] Chair Joseph/Bmt Work Phone: [facility] 11-02-2021 08:24-0400 Body height 161.8 cm Karo Hill MD Work Phone: [facility] 11-02-2021 08:24-0400 Body temperature 97.9 [degF] Karo Hill MD Work Phone: [facility] 11-02-2021 08:24-0400 Body weight 54.16 kg Karo Hill MD Work Phone: [facility] 11-02-2021 08:24-0400 Diastolic blood pressure 82 mm[Hg] Karo Hill MD Work Phone: [facility] 11-02-2021 08:24-0400 Heart rate 73 /min Karo Hill MD Work Phone: [facility] 11-02-2021 08:24-0400 Respiratory rate 16 /min Karo Hill MD Work Phone: [facility] 11-02-2021 08:24-0400 SaO2% (BldA) [Mass fraction] 100 % Karo Hlil MD Work Phone: [facility] 11-02-2021 08:24-0400 Systolic blood pressure 125 mm[Hg] Karo Hill MD Work Phone: [facility] 10-06-2021 12:30-0400 Body temperature 98.91 [degF] Chair Joseph/Bmt Work Phone: [facility] 10-06-2021 12:30-0400 Diastolic blood pressure 76 mm[Hg] Chair Joseph/Bmt Work Phone: [facility] 10-06-2021 12:30-0400 Heart rate 73 /min Chair Joseph/Bmt Work Phone: [facility] 10-06-2021 12:30-0400 Respiratory rate 18 /min Chair Joseph/Bmt Work Phone: [facility] 10-06-2021 12:30-0400 Systolic blood pressure 135 mm[Hg] Chair Joseph/Bmt Work Phone: [facility] 10-05-2021 08:29-0400 Body temperature 97.9 [degF] Karo Hill MD Work Phone: [facility] [facility] 10-05-2021 08:29-0400 Body weight 54.43 kg Karo Hill MD Work Phone: [facility] 10-05-2021 08:29-0400 Diastolic blood pressure 71 mm[Hg] Karo Hill MD Work Phone: [facility] 10-05-2021 08:29-0400 Heart rate 71 /min Karo Hill MD Work Phone: [facility] 10-05-2021 08:29-0400 Respiratory rate 16 /min Karo Hill MD Work Phone: [facility] 10-05-2021 08:29-0400 SaO2% (BldA) [Mass fraction] 100 % Karo Hill MD Work Phone: [facility] 10-05-2021 08:29-0400 Systolic blood pressure 133 mm[Hg] Karo Hill MD Work Phone: [facility] 09-08-2021 14:38-0400 Body temperature 97.9 [degF] Chair Joseph/Bmt Work Phone: [facility] 09-08-2021 14:38-0400 Diastolic blood pressure 63 mm[Hg] Chair Joseph/Bmt Work Phone: [facility] 09-08-2021 14:38-0400 Heart rate 75 /min Chair Joseph/Bmt Work Phone: [facility] 09-08-2021 14:38-0400 Respiratory rate 18 /min Chair Joseph/Bmt Work Phone: [facility] 09-08-2021 14:38-0400 Systolic blood pressure 110 mm[Hg] Chair Joseph/Bmt Work Phone: [facility] 09-07-2021 14:16-0400 Body temperature 98.29 [degF] Chair Joseph/Bmt Work Phone: [facility] 09-07-2021 14:16-0400 Diastolic blood pressure 55 mm[Hg] Chair Joseph/Bmt Work Phone: [facility] 09-07-2021 14:16-0400 Heart rate 79 /min Chair Joseph/Bmt Work Phone: [facility] 09-07-2021 14:16-0400 Respiratory rate 18 /min Chair Joseph/Bmt Work Phone: [facility] 09-07-2021 14:16-0400 Systolic blood pressure 114 mm[Hg] Chair Joseph/Bmt Work Phone: [facility] 09-07-2021 09:37-0400 Body temperature 98.8 [degF] Karo Hill MD Work Phone: [facility] 09-07-2021 09:37-0400 Body weight 53.89 kg Karo Hill MD Work Phone: [facility] 09-07-2021 09:37-0400 Diastolic blood pressure 80 mm[Hg] Karo Hill MD Work Phone: [facility] 09-07-2021 09:37-0400 Heart rate 68 /min Karo Hill MD Work Phone: [facility] 09-07-2021 09:37-0400 Respiratory rate 16 /min Karo Hill MD Work Phone: [facility] 09-07-2021 09:37-0400 SaO2% (BldA) [Mass fraction] 100 % Karo Hill MD Work Phone: [facility] 09-07-2021 09:37-0400 Systolic blood pressure 134 mm[Hg] Karo Hill MD Work Phone: [facility] Encounters Encounter Date Encounter Type Care Provider Facility Start: 11-24-2024 End: 11-25-2024 Patient encounter procedure Frank Vaughn MD Work Phone: Gynecology Oncology Start: 11-24-2024 End: 11-25-2024 ambulatory Frank Vaughn MD Work Phone: Gynecology Oncology Comment on above: Endometrial cancer ( HCC) (Primary Dx); Post-operative state Start: 11-05-2024 End: 11-05-2024 ambulatory JONATHAN BOWER Facility:[facility] Start: 10-30-2024 End: 10-30-2024 ambulatory FRANK VAUGHN Facility:[facility] Start: 10-30-2024 Encounter for other preprocedural examination FRANK VAUGHN [facility] Start: 10-23-2024 End: 10-23-2024 ambulatory Lead Pharmacy Technician Onc Nurse Ca 4 Work Phone: Gynecology Oncology Comment on above: Educational circumst ances (Primary Dx) Start: 10-23-2024 End: 10-23-2024 Telemedicine consultation with patient Lead Pharmacy Technician Onc Nurse Ca 4 Work Phone: Gynecology Oncology Start: 10-23-2024 End: 10-23-2024 ambulatory BOLAMUNIRA LANDAVERDE Facility:[facility] Start: 10-20-2024 End: 10-20-2024 Admission to establishment Pacc Revillo 1 Work Phone: Pre Anesthesia Start: 10-20-2024 End: 10-20-2024 Anesthesia consultation Pacc Chiquis 1 Work Phone: Pre Anesthesia Comment on above: Pre-operative examin ation (Primary Dx); Age-related osteoporosis without current pathological fracture; Endometrial cancer (HCC); 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); Hydronephrosis, unspecified hydronephrosis type Start: 10-20-2024 End: 10-20-2024 Preprocedural examination done Pac Revillo 1 Work Phone: [facility] Start: 10-20-2024 End: 10-20-2024 ambulatory SERGIO LANDAVERDE Facility:[facility] Start: 10-14-2024 End: 12-14-2024 Follow-up encounter Jonathan Bower APRN.CNP Work Phone: Gynecology Oncology Start: 10-13-2024 End: 10-16-2024 ambulatory Farnk Vaughn MD Work Phone: Gynecology Oncology Comment on above: Concerns Regarding U pcoming Radical Hysterectomy Start: 10-03-2024 End: 10-03-2024 E-mail encounter from caregiver Frank Vaughn MD Work Phone: [facility] Start: 10-03-2024 End: 10-03-2024 Patient encounter procedure Frank Vaughn MD Work Phone: [facility] Comment on above: Researchers from the [facility] seek your help in a study Start: 10-01-2024 End: 10-01-2024 Telephone encounter Karo Hill MD Work Phone: Hematology/Oncology Comment on above: 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) Start: 09-26-2024 End: 09-26-2024 ambulatory JONATHAN BOWER Facility:[facility] Start: 09-26-2024 End: 09-26-2024 Preprocedural examination done Xr Mob Work Phone: [facility] Start: 09-26-2024 End: 09-26-2024 Subsequent hospital visit by physician [facility] Chiquis Mob Work Phone: Radiology Comment on above: Endometrial cancer ( HCC) [C54.1] Start: 09-23-2024 End: 09-23-2024 Telephone encounter Frank Vaughn MD Work Phone: [facility] Start: 09-22-2024 End: 11-22-2024 Follow-up encounter Jonathan Bower APRN.CNP Work Phone: Gynecology Oncology Start: 09-22-2024 End: 09-24-2024 Telephone encounter Frank Vaughn MD Work Phone: [facility] Comment on above: Patient Question Start: 09-22-2024 End: 09-23-2024 ambulatory Frank Vaughn MD Work Phone: Gynecology Oncology Comment on above: Endometrial cancer ( HCC) (Primary Dx); Family history of pancreatic cancer; Preop examination Start: 09-22-2024 End: 09-22-2024 Patient encounter procedure Frank Vaughn MD Work Phone: Gynecology Oncology Start: 09-22-2024 End: 09-22-2024 Preprocedural examination done Frank Vaughn MD Work Phone: [facility] Start: 09-16-2024 End: 09-16-2024 Telephone encounter Frank Vaughn MD Work Phone: Gynecology Oncology Comment on above: Patient Navigation ( Requested Pathology slides from [facility] ([phone]) are currently @ [facility]. Slides will be sent to [facility] once returned. ) Start: 09-15-2024 End: 09-15-2024 Telephone encounter Frank Vaughn MD Work Phone: [facility] Start: 09-12-2024 End: 09-12-2024 Telephone encounter Frank Vaughn MD Work Phone: [facility] Comment on above: Patient Navigation ( Spoke with Josephine Renee to confirm consult with Dr. Vaughn on 09/22/24. I sent her a release of information to obtain Pathology slides from [facility]- ph.[phone]/fax. [phone] (08/26/24 [id number]). Ultrasound done @ [facility] p. [phone]/fax. [phone].) Start: 09-11-2024 Encounter for gynecological examination (general) (routine) without abnormal findings Gladis Garnica [facility] Start: 09-10-2024 ambulatory Gisel Gilmore Fa cility:[facility] Start: 09-05-2024 End: 09-08-2024 Telephone encounter Frank Vaughn MD Work Phone: Gynecology Oncology Comment on above: Appointment (New Pat ient ) Start: 09-04-2024 Encounter for other preprocedural examination Gisel Gilmore [facility] Start: 08-26-2024 ambulatory Gisel Gilmore Fa cility:[facility] Start: 08-26-2024 Non-patient / Non-visit Dr. Chandler Gilmore DO -[facility] Start: 08-26-2024 End: 08-26-2024 Admission to same day surgery center Dr. Gisel Gilmore DO -Surgical Day Care Start: 08-26-2024 End: 08-26-[address] Sergio Landaverde MD Work Phone: [facility] Work Phone: Start: 07-28-2024 End: 07-28-2024 Patient encounter procedure Gladis PENG -Outpatient Breast Imaging Work Phone: Start: 07-28-2024 End: 07-28-[address] Gisel Gilmore DO [facility] Work Phone: Start: 07-28-2024 End: 07-28-2024 ambulatory Gisel Gilmore Facility:[facility] Start: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 dehydrogenase [Enzymatic activity/volume] in Serum or Plasma LD LACTATE DEHYDRO Lab Routine 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) Expected: 05/11/2022 (Approximate), Expires: 07/11/2022 [facility] Work Phone: Comment on above: Expected: 05/11/2022 (Approximate), Expires: 07/11/2022 Start: 02-16-2022 Influenza vaccination [facility] Start: 02-10-2022 End: 04-12-2022 SARS-CoV-2 (COVID-19) RNA [Presence] in Respiratory specimen by KIRSTEN with probe detection PRE-PROCEDURE & PRE-OPERATIVE COVID Microbiology Routine Encounter for prophylactic measures, unspecified Expected: 02/10/2022, Expires: 04/12/2022 [facility] Work Phone: Comment on above: Expected: 02/10/2022 , Expires: 04/12/2022 Start: 01-30-2022 End: 12-30-2022 Ct abdomen & pelvis w/contrast material CT ABD/PEL W IVCON Radiology Routine 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) Expected: 01/30/2022 (Approximate), Expires: 12/30/2022 [facility] Work Phone: Comment on above: Expected: 01/30/2022 (Approximate), Expires: 12/30/2022 Start: 01-30-2022 End: 12-30-2022 Ct soft tissue neck w/contrast material CT NECK SOFT TISSUE W IVCON Radiology Routine 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) Expected: 01/30/2022 (Approximate), Expires: 12/30/2022 [facility] Work Phone: Comment on above: Expected: 01/30/2022 (Approximate), Expires: 12/30/2022 Start: 01-30-2022 End: 12-30-2022 Ct thorax w/contrast material CT CHEST W IVCON Radiology Routine 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) Expected: 01/30/2022 (Approximate), Expires: 12/30/2022 [facility] Work Phone: Comment on above: Expected: 01/30/2022 (Approximate), Expires: 12/30/2022 Start: 01-29-2022 End: 03-31-2022 CBC W Auto Differential panel - Blood CBC + DIFF Lab Routine 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) Expected: 01/29/2022 (Approximate), Expires: 03/31/2022 [facility] Work Phone: Comment on above: Expected: 01/29/2022 (Approximate), Expires: 03/31/2022 Start: 01-29-2022 End: 03-31-2022 Comprehensive metabolic 2000 panel - Serum or Plasma COMP METABOLIC PANEL Lab Routine 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) Expected: 01/29/2022 (Approximate), Expires: 03/31/2022 [facility] Work Phone: Comment on above: Expected: 01/29/2022 (Approximate), Expires: 03/31/2022 Start: 01-29-2022 End: 03-31-2022 Lactate dehydrogenase [Enzymatic activity/volume] in Serum or Plasma LD LACTATE DEHYDRO Lab Routine 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) Expected: 01/29/2022 (Approximate), Expires: 03/31/2022 [facility] Work Phone: Comment on above: Expected: 01/29/2022 (Approximate), Expires: 03/31/2022 Start: 01-01-2022 End: 05-05-2022 CBC W Auto Differential panel - Blood ABS GRAN CT + CBC Lab Routine 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) Expected: 01/01/2022 (Approximate), Expires: 05/05/2022 [facility] Work Phone: Comment on above: Expected: 01/01/2022 (Approximate), Expires: 05/05/2022 Start: 01-01-2022 End: 03-03-2022 Comprehensive metabolic 2000 panel - Serum or Plasma COMP METABOLIC PANEL Lab Routine 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) Expected: 01/01/2022 (Approximate), Expires: 03/03/2022 [facility] Work Phone: Comment on above: Expected: 01/01/2022 (Approximate), Expires: 03/03/2022 Start: 12-28-2021 End: 02-27-2022 SARS-CoV-2 (COVID-19) RNA [Presence] in Respiratory specimen by KIRSTEN with probe detection [facility] Work Phone: Comment on above: Expected: 12/28/2021 , Expires: 02/27/2022 Start: 11-30-2021 End: 01-30-2022 CBC W Auto Differential panel - Blood CBC + DIFF Lab Routine 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) Expected: 11/30/2021 (Approximate), Expires: 01/30/2022 [facility] Work Phone: Comment on above: Expected: 11/30/2021 (Approximate), Expires: 01/30/2022 Start: 11-30-2021 End: 01-30-2022 Comprehensive metabolic 2000 panel - Serum or Plasma COMP METABOLIC PANEL Lab Routine 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) Expected: 11/30/2021 (Approximate), Expires: 01/30/2022 [facility] Work Phone: Comment on above: Expected: 11/30/2021 (Approximate), Expires: 01/30/2022 Start: 10-18-2021 Mammography MAMMOGRAM [facility] Start: 10-05-2021 End: 12-05-2021 CBC W Auto Differential panel - Blood CBC + DIFF Lab Routine 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) Expected: 10/05/2021 (Approximate), Expires: 12/05/2021 [facility] Work Phone: Comment on above: Expected: 10/05/2021 (Approximate), Expires: 12/05/2021 Start: 10-05-2021 End: 12-05-2021 Comprehensive metabolic 2000 panel - Serum or Plasma COMP METABOLIC PANEL Lab Routine 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) Expected: 10/05/2021 (Approximate), Expires: 12/05/2021 [facility] Work Phone: Comment on above: Expected: 10/05/2021 (Approximate), Expires: 12/05/2021 Start: 06-18-2021 DEPRESSION ASSESSMENT DEPRESSION ASS ESSMENT [facility] Start: 02-16-2021 Influenza vaccination INFLUENZA (#1) [facility] Start: 10-23-2020 COVID-19 VACCINE (3 - Moderna risk 4-dose series) COVID-19 VACCINE (3 - Moderna risk 4-dose series) [facility] Start: 10-23-2020 COVID-19 VACCINE (3 - Moderna risk series) COVID-19 VACCINE (3 - Moderna risk series) [facility] Start: 07-06-2020 COLORECTAL CANCER SCREENING COLORECTAL CANCER SCREENING [facility] Start: 07-06-2020 FECAL OCCULT BLOOD FECAL OCCULT BLOO D [facility] Start: 07-06-2020 Screening for malign ant neoplasm of colon Fecal Occult Blood [facility] Start: 2013 SHINGRIX VACCINE (1 of 2) AVLENTIN GRIX VACCINE (1 of 2) [facility] Start: 2008 COLOGUARD (FIT-DNA) COLOGUARD (FIT-D NA) [facility] Start: 2008 Colonoscopy COLONOSCOPY [facility] Start: [address] COLONOGRAPHY [facility] Start: 2008 Lipid 1996 panel - S gabriella or Plasma Lipid Screening [facility] Start: 2008 Lipid panel Lipid Screening [facility] Start: 2008 LIPID SCREEN LIPID SCREEN [facility] Start: 2008 Screening for malign ant neoplasm of colon [facility] Start: 2008 SIGMOIDOSCOPY SIGMOIDOSCOPY [facility] Start: 1982 Pneumococcal Vaccine : 50+ (1 of 2 - PCV) Pneumococcal Vaccine: 50+ (1 of 2 - PCV) [facility] Start: 1982 SHINGRIX VACCINE (1 of 2) VALENTIN GRIX VACCINE (1 of 2) [facility] Start: 1982 Urine microalbumin profile [facility] Start: 1981 Anxiety Screening Anxiety Screening [facility] Start: 1981 Depression Screening Depression Scre ening [facility] Start: 1969 PNEUMOCOCCAL (1 - PCV) PNEUMOCOCCAL (1 - PCV) [facility] Start: 1969 Pneumococcal vaccination [facility] CT Abdomen and Pelvi s W contrast IV CT ABD/PEL W IVCON Radiology Routine 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) 01/01/2024 10:22 AM EDT [facility] Work Phone: CT Chest W contrast IV CT CHEST W IVCON Radiology Routine 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) 01/01/2024 10:22 AM EDT [facility] End: 03-15-2023 Diagnostic mammography computer-aided detcj bi [facility] Radiology Routine Abnormal mammogram Encounter for screening mammogram for malignant neoplasm of breast 1 Occurrences starting 02/13/2022 until 03/15/2023 [facility] Work Phone: Comment on above: 1 Occurrences starti ng 02/13/2022 until 03/15/2023 End: 09-22-2025 ECG COMPLETE ECG COMPLETE ECG Routine Endometrial cancer (HCC) Preop examination 1 Occurrences starting 09/22/2024 until 09/22/2025 [facility] Comment on above: 1 Occurrences starti ng 09/22/2024 until 09/22/2025 Intraop sentinel lym ph node id w/dye injection INTRAOPERATIVE ID OF SENTINEL LYMPH NODE(S) INCL'D INJECTION OF NON-RAD DYE WHEN PERFORMED Endometrial cancer (HCC) Preop examination [facility] Laps total hysterect 250 gm/< w/rmvl tube/ovary LAPAROSCOPIC HYSTERECTOMY TOTAL FOR UTERUS 250 G OR LESS W/REMOVAL TUBE(S) AND/OR OVARY(S) Endometrial cancer (HCC) Preop examination [facility] Liquid based cervica l cytology screening [facility] Patient referral [facility] Work Phone: PELVIC US WHI PELVIC US WHI An c Imaging Routine Cyst of ovary, unspecified laterality 1 Occurrences starting 02/13/2022 [facility] Work Phone: Comment on above: 1 Occurrences starti ng 02/13/2022 REFER FOR ADMIT INTERVIEW REFER FOR ADMIT INTERVIEW Procedures Routine Endometrial cancer (HCC) Preop examination Ordered: 09/22/2024 [facility] Comment on above: Ordered: 09/22/2024 End: 04-16-2023 Screening mammography bi 2-view breast inc cad [facility] SCREENING Radiology Routine Encounter for screening mammogram for breast cancer 1 Occurrences starting 03/17/2022 until 04/16/2023 [facility] Work Phone: Comment on above: 1 Occurrences starti ng 03/17/2022 until 04/16/2023 End: 10-22-2025 XR Chest PA and Lateral XR CHEST 2V FRONTAL/LAT Radiology Routine Endometrial cancer (HCC) Preop examination 1 Occurrences starting 09/22/2024 until 10/22/2025 [facility] Work Phone: Comment on above: 1 Occurrences starti ng 09/22/2024 until 10/22/2025 [facility] Immunizations Immunization Date Immunization Notes Care Provider Fa sheyla 05-15-2023 influenza virus vacc ine, unspecified formulation Karo Hill MD Work Phone: [facility] 05-30-2022 influenza virus vacc ine, unspecified formulation Ct (I-Stat) Work Phone: [facility] Payers Date Payer Category Payer Self-pay [id number] 2017 [employer] BLUE ACCE SS PPO [id number] 2017 Unknown [employer] BLUE ACCE SS PPO [id number] 2017-Present [phone] [place], [place] [address] [id number] 2017 Unknown [employer] BLUE ACCE SS PPO [id number] 2017-Present [phone] [place], [place] [id number] [facility] [id number] 2017 Unknown [id number] Unknown [facility] [employer] [phone] [id number] Unknown [id number]. [id number] Unknown [id number]. 2.462 Unknown [id number]. 2.462 Unknown [id number]. 2.462 Unknown [id number]. 2.462 Unknown [id number]. 2.462 Unknown [id number]. 2.462 Unknown [id number]. 2.462 Unknown [id number]. 2.462 Unknown [id number]. 2.462 Unknown [id number]. 2.462 Unknown [id number]. 2.462 Social History Date Type Detail Facility Start: 06-25-2019 End: 02-13-2022 Tobacco smoking status NHIS Never smoked tobacco [facility] Start: 06-25-2019 End: 02-13-2022 Tobacco use and exposure Smokeless tobacco non-user [facility] Start: 08-01-2021 End: 09-22-2024 Alcohol intake Current drinker of alcohol (finding) [facility] Start: 06-25-2019 End: 10-23-2019 History SDOH Alcohol Frequency 2 [facility] Start: 06-25-2019 End: 10-23-2019 History SDOH Alcohol Std Drinks 1 [facility] Start: 06-25-2019 History SDOH Social Connections Phone 3 [facility] Start: 06-25-2019 History SDOH Physica l Activity DPW 5 [facility] Start: 06-25-2019 History SDOH Stress 4 [facility] Start: 1965 Sex Assigned At Female [facility] Start: 08-28-2021 End: 02-10-2022 Exposure to SARS-CoV-2 (event) Not sure [facility] Start: 07-19-2021 End: 09-08-2022 Tobacco smoking status NHIS Unknown if ever smoked [facility] Start: 06-25-2019 End: 01-03-2023 History of Social function [facility] Start: 06-25-2019 End: 01-03-2023 Social connection and isolation panel [facility] Do you belong to any clubs or organizations such as orthodox groups, unions, fraternal or athletic groups, or school groups? Yes [facility] Are you now , , , , never or living with a partner? [facility] How often to you hav e a drink containing alcohol? Monthly or less [facility] How many standard drinks containing alcohol do you have on a typical day? 1 or 2 [facility] How often do you hav e 6 or more drinks on 1 occasion? Never [facility] How hard is it for y ou to pay for the very basics like food, housing, medical care, and heating Not hard at all [facility] Do you feel stress - tense, restless, nervous, or anxious, or unable to sleep at night because your mind is troubled all the time - these days [OSQ] Rather much [facility] (I/We) worried aubrey er (my/our) food would run out before (I/we) got money to buy more. Never true [facility] Start: 10-22-2019 Gender identity Identifies as female gender (finding) [facility] Start: 10-22-2019 Sexual orientation Heterosexual (ni quan) [facility] Start: 08-26-2024 End: 09-11-2024 Sex Female (finding) [facility] NEGATED: Highlighted row [facility] NEGATED: Highlighted row Not [facility] Medical Equipment Procedure Code Equipment Code Equipment Original Text Equipment Identifier Dates Bunionectomy REF- AR-8725-34H ARTHREX 2.5 HEADLESS SCREW FDA Start: 09-22-2022 Bunionectomy REF- [id number]. ARTHREX HEADLESS SCREW 3.5X32 FDA Start: 09-22-2022 Bunionectomy REF- [id number] A RTHREX SNAPOFF SCREW 2.0X11 FDA Start: 09-22-2022 Bunionectomy REF- AR-8730-40H ARTHREX 3.5X40 HEADLESS SCREW FDA Start: 09-22-2022 Bunionectomy REF- AR-8930-13 ARTHREX 2.0X13 SNAPOFF SCREW FDA Start: 09-22-2022 Bunionectomy REF- AR-8935-24 ARTHREX 3.5X24 CORTICAL SCREW FDA Start: 09-22-2022 Bunionectomy REF- AR-8935CL-1 4. ARTHREXKREVLOCK SCREW 3.5X14 FDA Start: 09-22-2022 Bunionectomy REF- AR-8935CL-1 6 ARTHREX 3.5X16 KREVLOCK SCREW FDA Start: 09-22-2022 Bunionectomy REF- AR-8935CL-2 0 ARTHREX KREVLOCK SCREW 3.5X20 FDA Start: 09-22-2022 Bunionectomy REF- AR-8940-24 ARTHREX 4.0X24 CANCELLOUS SCREW FDA Start: 09-22-2022 Bunionectomy REF- AR-8941PLS. ARTHREX LAPIDUS PLATE, LEFT, SHORT FDA Start: 09-22-2022 Bunionectomy REF- AR-8725-34H ARTHREX 2.5 HEADLESS SCREW FDA Start: 09-22-2022 Bunionectomy REF- [id number]. ARTHREX HEADLESS SCREW 3.5X32 FDA Start: 09-22-2022 Bunionectomy REF- [id number] A RTHREX SNAPOFF SCREW 2.0X11 FDA Start: 09-22-2022 Bunionectomy REF- AR-8730-40H ARTHREX 3.5X40 HEADLESS SCREW FDA Start: 09-22-2022 Bunionectomy REF- AR-8930-13 ARTHREX 2.0X13 SNAPOFF SCREW FDA Start: 09-22-2022 Bunionectomy REF- AR-8935-24 ARTHREX 3.5X24 CORTICAL SCREW FDA Start: 09-22-2022 Bunionectomy REF- AR-8935CL-1 4. ARTHREXKREVLOCK SCREW 3.5X14 FDA Start: 09-22-2022 Bunionectomy REF- AR-8935CL-1 6 ARTHREX 3.5X16 KREVLOCK SCREW FDA Start: 09-22-2022 Bunionectomy REF- AR-8935CL-2 0 ARTHREX KREVLOCK SCREW 3.5X20 FDA Start: 09-22-2022 Bunionectomy REF- AR-8940-24 ARTHREX 4.0X24 CANCELLOUS SCREW FDA Start: 09-22-2022 Bunionectomy REF- AR-8941PLS. ARTHREX LAPIDUS PLATE, LEFT, SHORT FDA Start: 09-22-2022 Bunionectomy REF- AR-8725-34H ARTHREX 2.5 HEADLESS SCREW FDA Start: 09-22-2022 Bunionectomy REF- [id number]. ARTHREX HEADLESS SCREW 3.5X32 FDA Start: 09-22-2022 Bunionectomy REF- [id number] A RTHREX SNAPOFF SCREW 2.0X11 FDA Start: 09-22-2022 Bunionectomy REF- AR-8730-40H ARTHREX 3.5X40 HEADLESS SCREW FDA Start: 09-22-2022 Bunionectomy REF- AR-8930-13 ARTHREX 2.0X13 SNAPOFF SCREW FDA Start: 09-22-2022 Bunionectomy REF- AR-8935-24 ARTHREX 3.5X24 CORTICAL SCREW FDA Start: 09-22-2022 Bunionectomy REF- AR-8935CL-1 4. ARTHREXKREVLOCK SCREW 3.5X14 FDA Start: 09-22-2022 Bunionectomy REF- AR-8935CL-1 6 ARTHREX 3.5X16 KREVLOCK SCREW FDA Start: 09-22-2022 Bunionectomy REF- AR-8935CL-2 0 ARTHREX KREVLOCK SCREW 3.5X20 FDA Start: 09-22-2022 Bunionectomy REF- AR-8940-24 ARTHREX 4.0X24 CANCELLOUS SCREW FDA Start: 09-22-2022 Bunionectomy REF- AR-8941PLS. ARTHREX LAPIDUS PLATE, LEFT, SHORT FDA Start: 09-22-2022 Bunionectomy REF- AR-8725-34H ARTHREX 2.5 HEADLESS SCREW FDA Start: 09-22-2022 Bunionectomy REF- [id number]. ARTHREX HEADLESS SCREW 3.5X32 FDA Start: 09-22-2022 Bunionectomy REF- [id number] A RTHREX SNAPOFF SCREW 2.0X11 FDA Start: 09-22-2022 Bunionectomy REF- AR-8730-40H ARTHREX 3.5X40 HEADLESS SCREW FDA Start: 09-22-2022 Bunionectomy REF- AR-8930-13 ARTHREX 2.0X13 SNAPOFF SCREW FDA Start: 09-22-2022 Bunionectomy REF- AR-8935-24 ARTHREX 3.5X24 CORTICAL SCREW FDA Start: 09-22-2022 Bunionectomy REF- AR-8935CL-1 4. ARTHREXKREVLOCK SCREW 3.5X14 FDA Start: 09-22-2022 Bunionectomy REF- AR-8935CL-1 6 ARTHREX 3.5X16 KREVLOCK SCREW FDA Start: 09-22-2022 Bunionectomy REF- AR-8935CL-2 0 ARTHREX KREVLOCK SCREW 3.5X20 FDA Start: 09-22-2022 Bunionectomy REF- AR-8940-24 ARTHREX 4.0X24 CANCELLOUS SCREW FDA Start: 09-22-2022 Bunionectomy REF- AR-8941PLS. ARTHREX LAPIDUS PLATE, LEFT, SHORT FDA Start: 09-22-2022 Bunionectomy REF- AR-8725-34H ARTHREX 2.5 HEADLESS SCREW FDA Start: 09-22-2022 Bunionectomy REF- [id number]. ARTHREX HEADLESS SCREW 3.5X32 FDA Start: 09-22-2022 Bunionectomy REF- [id number] A RTHREX SNAPOFF SCREW 2.0X11 FDA Start: 09-22-2022 Bunionectomy REF- AR-8730-40H ARTHREX 3.5X40 HEADLESS SCREW FDA Start: 09-22-2022 Bunionectomy REF- AR-8930-13 ARTHREX 2.0X13 SNAPOFF SCREW FDA Start: 09-22-2022 Bunionectomy REF- AR-8935-24 ARTHREX 3.5X24 CORTICAL SCREW FDA Start: 09-22-2022 Bunionectomy REF- AR-8935CL-1 4. ARTHREXKREVLOCK SCREW 3.5X14 FDA Start: 09-22-2022 Bunionectomy REF- AR-8935CL-1 6 ARTHREX 3.5X16 KREVLOCK SCREW FDA Start: 09-22-2022 Bunionectomy REF- AR-8935CL-2 0 ARTHREX KREVLOCK SCREW 3.5X20 FDA Start: 09-22-2022 Bunionectomy REF- AR-8940-24 ARTHREX 4.0X24 CANCELLOUS SCREW FDA Start: 09-22-2022 Bunionectomy REF- AR-8941PLS. ARTHREX LAPIDUS PLATE, LEFT, SHORT FDA Start: 09-22-2022 Bunionectomy REF- AR-8725-34H ARTHREX 2.5 HEADLESS SCREW FDA Start: 09-22-2022 Bunionectomy REF- [id number]. ARTHREX HEADLESS SCREW 3.5X32 FDA Start: 09-22-2022 Bunionectomy REF- [id number] A RTHREX SNAPOFF SCREW 2.0X11 FDA Start: 09-22-2022 Bunionectomy REF- AR-8730-40H ARTHREX 3.5X40 HEADLESS SCREW FDA Start: 09-22-2022 Bunionectomy REF- AR-8930-13 ARTHREX 2.0X13 SNAPOFF SCREW FDA Start: 09-22-2022 Bunionectomy REF- AR-8935-24 ARTHREX 3.5X24 CORTICAL SCREW FDA Start: 09-22-2022 Bunionectomy REF- AR-8935CL-1 4. ARTHREXKREVLOCK SCREW 3.5X14 FDA Start: 09-22-2022 Bunionectomy REF- AR-8935CL-1 6 ARTHREX 3.5X16 KREVLOCK SCREW FDA Start: 09-22-2022 Bunionectomy REF- AR-8935CL-2 0 ARTHREX KREVLOCK SCREW 3.5X20 FDA Start: 09-22-2022 Bunionectomy REF- AR-8940-24 ARTHREX 4.0X24 CANCELLOUS SCREW FDA Start: 09-22-2022 Bunionectomy REF- AR-8941PLS. ARTHREX LAPIDUS PLATE, LEFT, SHORT FDA Start: 09-22-2022 Bunionectomy REF- AR-8725-34H ARTHREX 2.5 HEADLESS SCREW FDA Start: 09-22-2022 Bunionectomy REF- [id number]. ARTHREX HEADLESS SCREW 3.5X32 FDA Start: 09-22-2022 Bunionectomy REF- [id number] A RTHREX SNAPOFF SCREW 2.0X11 FDA Start: 09-22-2022 Bunionectomy REF- AR-8730-40H ARTHREX 3.5X40 HEADLESS SCREW FDA Start: 09-22-2022 Bunionectomy REF- AR-8930-13 ARTHREX 2.0X13 SNAPOFF SCREW FDA Start: 09-22-2022 Bunionectomy REF- AR-8935-24 ARTHREX 3.5X24 CORTICAL SCREW FDA Start: 09-22-2022 Bunionectomy REF- AR-8935CL-1 4. ARTHREXKREVLOCK SCREW 3.5X14 FDA Start: 09-22-2022 Bunionectomy REF- AR-8935CL-1 6 ARTHREX 3.5X16 KREVLOCK SCREW FDA Start: 09-22-2022 Bunionectomy REF- AR-8935CL-2 0 ARTHREX KREVLOCK SCREW 3.5X20 FDA Start: 09-22-2022 Bunionectomy REF- AR-8940-24 ARTHREX 4.0X24 CANCELLOUS SCREW FDA Start: 09-22-2022 Bunionectomy REF- AR-8941PLS. ARTHREX LAPIDUS PLATE, LEFT, SHORT FDA Start: 09-22-2022 Bunionectomy REF- AR-8725-34H ARTHREX 2.5 HEADLESS SCREW FDA Start: 09-22-2022 Bunionectomy REF- [id number]. ARTHREX HEADLESS SCREW 3.5X32 FDA Start: 09-22-2022 Bunionectomy REF- [id number] A RTHREX SNAPOFF SCREW 2.0X11 FDA Start: 09-22-2022 Bunionectomy REF- AR-8730-40H ARTHREX 3.5X40 HEADLESS SCREW FDA Start: 09-22-2022 Bunionectomy REF- AR-8930-13 ARTHREX 2.0X13 SNAPOFF SCREW FDA Start: 09-22-2022 Bunionectomy REF- AR-8935-24 ARTHREX 3.5X24 CORTICAL SCREW FDA Start: 09-22-2022 Bunionectomy REF- AR-8935CL-1 4. ARTHREXKREVLOCK SCREW 3.5X14 FDA Start: 09-22-2022 Bunionectomy REF- AR-8935CL-1 6 ARTHREX 3.5X16 KREVLOCK SCREW FDA Start: 09-22-2022 Bunionectomy REF- AR-8935CL-2 0 ARTHREX KREVLOCK SCREW 3.5X20 FDA Start: 09-22-2022 Bunionectomy REF- AR-8940-24 ARTHREX 4.0X24 CANCELLOUS SCREW FDA Start: 09-22-2022 Bunionectomy REF- AR-8941PLS. ARTHREX LAPIDUS PLATE, LEFT, SHORT FDA Start: 09-22-2022 Goals Date Patient Goal Desired Activity /State Functional Status Date Assessment Result Facility 09-22-2022 Functional status Ambulates;Bedside Commo de [facility] Work Phone: Mental Status Date Assessment Result Facility 08-26-2024 Cognitive function Level Of Cons ciousness Awake;Alert [facility] Work Phone: 08-03-2023 Cognitive function Voice/Name [facility] Work Phone: 09-22-2022 Cognitive function Level Of Consciousness Drowsy [facility] Work Phone: Clinical Notes 08-09-2021 to 11-24-2024 Frank Vaughn MD - 11/24/2024 11:00 AM Zoraida Brock LPN - 10/22/2024 11:26 AM EDTPatient InstructionsPatient InstructionsEstephania Larsen, SEAM STAY STITCHER.SUPERINTENDENT ELECTRIC POWER - 10/20/2024 9:31 AM EDT Note Date & Type Note Facility 11-24-2024 History of Presen t illness Narrative DATE OF SERVICE: 11/24/2024 PROBLEM: Josephine Renee presents for postop visit. SURGERY & DATE: 10/30/2024 - Laparoscopic Hysterectomy Total For Uterus 250 G Or Less W/removal Tube(s) And/or Ovary(s) - Bilateral, Intraoperative Id Of [place] Lymph Node(s) Incl'd Injection Of Non-rad Dye When Performed, and Laparoscopy Surgical W/retroperitoneal Lymph Node Sampling Single Or Multiple - Bilateral PATHOLOGY: FINAL DIAGNOSIS Date Value Ref Range Status 10/30/2024 Final A. Pelvic sentinel lymph nodes, lymphadenectomy: - One benign lymph node. B. Presacral sentinel lymph nodes, lymphadenectomy: - One benign lymph node. C. Uterus, cervix, fallopian tubes and ovaries; hysterectomy and bilateral salpingo-oophorectomy: - No residual endometrial carcinoma, see template. ACV/kr 10/31/2024 SUBJECTIVE/INTERVAL HISTORY: Patient reports that her recovery was far better than expected, with minimal pain and a return to normal activities, including driving. She feels 100% back to normal and is very satisfied with the outcome of the surgery and pathology report. She inquires about resuming hormone replacement therapy, specifically local estrogen, to address painful intercourse and UTIs. She had previously used a vaginal ring but discontinued it a couple of years before her cancer diagnosis. She expresses interest in using local estrogen cream or a vaginal insert like Replens. Musculoskeletal: (-) pain OBJECTIVE: VITALS: BP 124/70 (BP Site: Left Arm, BP Position: Sitting, BP Cuff Size: Regular Adult) Pulse 66 Temp 36.9 C (98.5 F) (Temporal) Wt 56.8 kg (125 lb 3.5 oz) SpO2 98% BMI 22.18 kg/m HEENT: Normocephalic, atraumatic, mucus membranes moist, and no lesions ABDOMEN: Abdomen soft, non-tender, no hepatosplenomegaly. Incision healing well. 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 1. Endometrial cancer (HCC) Pathology report shows no residual cancer in the uterus and negative lymph nodes, indicating an early stage. Patient is at exceedingly low risk for recurrence. - No further treatment with radiation or chemotherapy is recommended. - Scheduled follow-up exams every 4 months for the first 2 years, alternating with Jonathan, to monitor for recurrence at the vaginal cuff. - After 2 years, exams will be conducted every 6 months until the 5-year joanne. - Given no residual tumor, molecular class unable to be determined. Will need to obtain MMR stains and POLE from original biopsy. 2. Post-operative state Recovery is progressing well, with the patient reporting feeling "100% back to normal" and minimal pain. Incisions appear to be healing appropriately. - Advised use of calamine lotion or Vaseline to alleviate itching at incision sites. - Discussed avoidance of systemic hormone replacement therapy due to estrogen-driven nature of the cancer. - Recommended waiting at least 6 weeks post-surgery before considering intercourse; advised against rushing into activities. - Discussed potential use of local estrogen cream after surgical healing for dyspareunia, to be considered after the first follow-up. - Advised against the use of estrogen rings due to systemic absorption. - Discussed non-hormonal options like Replens, to be considered after 6 weeks. - Referral to pelvic pain clinic for further evaluation and management of dyspareunia after the first follow-up. - Scheduled follow-up appointment in 3 months to assess healing and discuss further management. Frank Vaughn MD Recording using [employer] software for draft documentation of the visit was discussed with the patient/authorized unit support representative; all questions welcomed and answered. Patient/authorized unit support representative agreed to proceed documented in this encounter [facility] 11-24-2024 Note HNO ID: [id number] Author: FRANK VAUGHN MD Service: ? Author Type: Physician Type: Progress Notes Filed: 11/27/2024 15:25 Note Text: DATE OF SERVICE: 11/24/2024 PROBLEM: Josephine Renee presents for postop visit. SURGERY AND DATE: 10/30/2024 - Laparoscopic Hysterectomy Total For Uterus 250 G Or Less W/removal Tube(s) And/or Ovary(s) - Bilateral, Intraoperative Id Of [place] Lymph Node(s) Incl'd Injection Of Non-rad Dye When Performed, and Laparoscopy Surgical W/retroperitoneal Lymph Node Sampling Single Or Multiple - Bilateral PATHOLOGY: FINAL DIAGNOSIS Date Value Ref Range Status 10/30/2024 Final A. Pelvic sentinel lymph nodes, lymphadenectomy: - One benign lymph node. B. Presacral sentinel lymph nodes, lymphadenectomy: - One benign lymph node. C. Uterus, cervix, fallopian tubes and ovaries; hysterectomy and bilateral salpingo-oophorectomy: - No residual endometrial carcinoma, see template. ALLA/keith 10/31/2024 SUBJECTIVE/INTERVAL HISTORY: Patient reports that her recovery was far better than expected, with minimal pain and a return to normal activities, including driving. She feels 100% back to normal and is very satisfied with the outcome of the surgery and pathology report. She inquires about resuming hormone replacement therapy, specifically local estrogen, to address painful intercourse and UTIs. She had previously used a vaginal ring but discontinued it a couple of years before her cancer diagnosis. She expresses interest in using local estrogen cream or a vaginal insert like Replens. Musculoskeletal: (-) pain OBJECTIVE: VITALS: BP 124/70 (BP Site: Left Arm, BP Position: Sitting, BP Cuff Size: Regular Adult) Pulse 66 Temp 36.9 ?C (98.5 ?F) (Temporal) Wt 56.8 kg (125 lb 3.5 oz) SpO2 98% BMI 22.18 kg/m? HEENT: Normocephalic, atraumatic, mucus membranes moist, and no lesions ABDOMEN: Abdomen soft, non-tender, no hepatosplenomegaly. Incision healing well. 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 1. Endometrial cancer (HCC) Pathology report shows no residual cancer in the uterus and negative lymph nodes, indicating an early stage. Patient is at exceedingly low risk for recurrence. - No further treatment with radiation or chemotherapy is recommended. - Scheduled follow-up exams every 4 months for the first 2 years, alternating with Jonathan, to monitor for recurrence at the vaginal cuff. - After 2 years, exams will be conducted every 6 months until the 5-year joanne. - Given no residual tumor, molecular class unable to be determined. Will need to obtain MMR stains and POLE from original biopsy. 2. Post-operative state Recovery is progressing well, with the patient reporting feeling "100% back to normal" and minimal pain. Incisions appear to be healing appropriately. - Advised use of calamine lotion or Vaseline to alleviate itching at incision sites. - Discussed avoidance of systemic hormone replacement therapy due to estrogen-driven nature of the cancer. - Recommended waiting at least 6 weeks post-surgery before considering intercourse; advised against rushing into activities. - Discussed potential use of local estrogen cream after surgical healing for dyspareunia, to be considered after the first follow-up. - Advised against the use of estrogen rings due to systemic absorption. - Discussed non-hormonal options like Replens, to be considered after 6 weeks. - Referral to pelvic pain clinic for further evaluation and management of dyspareunia after the first follow-up. - Scheduled follow-up appointment in 3 months to assess healing and discuss further management. Frank Vaughn MD Recording using [employer] software for draft documentation of the visit was discussed with the patient/authorized unit support representative; all questions welcomed and answered. Patient/authorized unit support representative agreed to proceed [facility] 11-05-2024 Note HNO ID: [id number] Author: JONATHAN BOWER APRN.SUPERINTENDENT [employer]LECTRIC [employer]OWER Service: ? Author Type: Nurse Practitioner Type: Progress Notes Filed: 11/05/2024 15:20 Note Text: VIRTUAL VISIT PROGRESS NOTE I have communicated my name and active licensure. The patient's identity and physical location were verified at the time of this visit. Either the patient or their legal unit support representative has been informed of the risks and benefits of -- and alternatives to -- treatment through a remote evaluation and consents to proceed with the evaluation remotely. This is a virtual visit. It required patient-provider interaction for the medical decision making as documented below. Patient name and birthday verified: Yes Location of patient: Patient's Home Persons Present: patient DATE OF SERVICE: 11/05/2024 PROBLEM: Josephine Renee presents for postop virtual visit. SURGERY AND DATE: 10/30/2024 - Laparoscopic Hysterectomy Total For Uterus 250 G Or Less W/removal Tube(s) And/or Ovary(s) - Bilateral and Intraoperative Id Of [place] Lymph Node(s) Incl'd Injection Of Non-rad Dye When Performed PATHOLOGY: Pending LINES/DRAINS: None SUBJECTIVE/INTERVAL HISTORY: Reports some bloating today and mild abdominal discomfort similar to menstrual cramps. Has not used any oxycodone. No trouble with urination. Reports some from discomfort from colon but this is improving. No constipation. On day 3 after reported small pin point dots around incision. Noticed some petechiae. Reports some vaginal spotting the day after surgery but none since. OBJECTIVE: None performed, tele visit. ASSESSMENT/PLAN: Josephine reports she is doing well. No concerns. Pathology in process. Will notify patient once resulted. Keep follow up scheduled with Dr. Vaughn. Follow up sooner as needed. Jonathan Bower APRN.STEVAN Appointments for Next 60 Days Date Time Provider Location Dept Phone 11/05/2024 9:00 AM JONATHAN BOWER [facility] [phone] 11/24/2024 11:00 AM FRANK VAUGHN [facility] [phone] Jonathan Bower APRN.STEVAN [facility] 10-30-2024 Note HNO ID: [id number] Author: IDALMIS ROGER MD Service: ? Author Type: Resident Type: Anesthesia Procedure Notes Filed: 10/30/2024 08:30 Note Text: ANESTHESIOLOGY PROCEDURE NOTE PIV General Information Procedure Start Time/Medication Administration: 10/30/2024 7:55 AM Procedure End Time: 10/30/2024 7:59 AM Patient Location: OR Staffing Resident: Idalmis Roger MD Performed by: resident Preparation Sterility Preparation: hand hygiene performed prior to procedure, surgical cap used, mask used, skin prep agent completely dried prior to procedure Site Prep: Chloraprep Procedure Details Indication: need for IV access Needle Size/Type: 18 gauge angiocath Orientation: Left Location: Hand SIGNATURE: Idalmis Roger MD PATIENT NAME: Josephine Renee DATE: October 30, 2024 TIME: 8:29 AM CSN: [id number] [facility] 10-30-2024 Note HNO ID: [id number] Author: IDALMIS ROGER MD Service: ? Author Type: Resident Type: Anesthesia Procedure Notes Filed: 10/30/2024 08:29 Note Text: ANESTHESIOLOGY PROCEDURE NOTE Airway General Information Procedure Start Time/Medication Administration: 10/30/2024 7:43 AM Procedure End Time: 10/30/2024 7:46 AM Patient location during procedure: OR Timeout Performed Pre-procedure: timeout performed Consent Obtained: Yes Patient identity confirmed: arm band Staffing Anesthesiologist: Rachel Britt MD Resident: Idalmis Roger MD Performed by: resident Indications and Patient Condition Indications for airway management: anesthesia Preoxygenated: yes anesthesia circuit Patient position: sniffing Method: asleep Difficult Mask: No Final Airway Details Final airway type: endotracheal airway Final Endotracheal Airway: ETT Cuffed: yes Successful intubation technique: direct laryngoscopy Devices used: Uribe Endotracheal tube insertion site: oral Blade: Mandie Blade size: #3 ETT size (mm): 7.0 Measured from: lips Measurement (cm): 22 Placement verified by: capnometry Cormack-Lehane Classification: grade I - full view of glottis Number of attempts at approach: 1 Failed airway: no Unrecognized esophageal intubation: no Airway not difficult SIGNATURE: Idalmis Roger MD PATIENT NAME: Josephine Renee DATE: October 30, 2024 TIME: 8:27 AM CSN: [id number] [facility] 10-22-2024 Note HNO ID: [id number] Author: ZORAIDA RUFF LPN Service: ? Author Type: LICENSED NURSE Type: Progress Notes Filed: 10/23/2024 10:57 Note Text: DATE OF SERVICE: 10/23/2024 PROBLEM: Josephine Renee presents for pre-op teaching. PRE-OP DIAGNOSIS: Endometrial Cancer SCHEDULED SURGERY AND DATE: 10/30/2024 at [facility]; LAPAROSCOPIC HYSTERECTOMY TOTAL FOR UTERUS 250 G OR LESS W/REMOVAL TUBE(S) AND/OR OVARY(S) and INTRAOPERATIVE ID OF SENTINEL LYMPH NODE(S) INCL'D INJECTION OF NON-RAD DYE WHEN PERFORMED PRIMARY SURGEON: Frank Vaughn MD NURSING PREOP ASSESSMENT: Fevers, chills, cough, or nasal congestion: No Vaginal itching, burning, discharge, or odor: No Pain with urination, frequency, urgency, cloudy or foul smelling urine: No If yes to any of the above then MD notified: Not Applicable ADVANCED CARE PLANNING: Does the patient have an advanced directive: Yes Does [facility] have a copy of the patient's advanced directive: No Was advanced directive given to the patient: No PATIENT LEARNING ASSESSMENT: Individual patient/family learning needs evaluated and addressed: Yes Cognitive ability: Alert and oriented Motivation to learn: Eager Interested Factors affecting learning: None Physical limitations affecting learning: None Patient learns best by: Individual Instruction Method of instruction: Individual instruction Instructions provided to: Patient via telephone. Written material provided prior to education appointment. Family support: High - Very involved in pt care PRE- AND POST-OPERATIVE TEACHING Pre-operative teaching and supplemental material provided and reviewed with patient: Your Surgical Guide Book Map Written pre-op and post-op instructions Antibacterial soap: given to patient prior to preop teaching appointment Pre-operative instructions provided and reviewed with patient/family: No eating, drinking, or smoking after midnight prior to surgery unless otherwise directed No alcohol the day before surgery Medications as prescribed by anesthesia, internal medicine, surgeon, or MOTOR VEHICLE ESCORT DRIVER Stop NSAIDs, Aspirin (ASA), vitamins, herbal supplements, herbal teas, and diet pills 7-10 days prior to surgery OK to take tylenol prn pain unless otherwise directed by physician Call surgery coordinators if any other questions about surgery date or pre-op appointments Bowel prep instructions: NPO after midnight Day of surgery instructions provided and reviewed with patient/family: Arrival time (call surgical coordinators on the office day prior to surgery for verification) No jewelry, body piercing, makeup, contacts, lotions, nail montenegrin on fingers, or anything in hair on arrival to surgery Wear low healed shoes and loose fitting clothing Leave all valuables at home or with a family member Directions to [facility] and [facility] [place] Parking/parking validation on the day prior to surgery Admission/check in (Report to DESK J1-9 for surgery) Holding area Placement of IV Surgical positioning Family waiting area Surgical recovery room Post-operative instructions provided and reviewed with patient/family: SEE PATIENT INSTRUCTION SECTION FOR DETAILS. SYMPTOMS TO NOTIFY MD - Fever, chills, nausea, vomiting, increased or severe pain, heavy vaginal bleeding, foul smelling vaginal drainage, pain or swelling in extremities. URGENT SYMPTOMS - Call 911 or go to ER if any shortness of breath, difficulty breathing, or chest pain. HOW TO CONTACT PHYSICIAN - Physician's office phone number given to patient, if after hours patient instructed to call photogravure press operator and ask for caisson worker geological engineering teacher onc resident. ANASTASIA program offered to patient: No Additional teaching as indicated by patient/family learning needs. PATIENT LEARNING EVALUATION AND FOLLOW UP PLAN: Patient and/or family express understanding of upcoming surgery, pre-operative preparation, the operative process, and post-operative instructions. Follow up plan: Patient instructed to call with any further issues Patient has a post-op appointment scheduled: Yes 11/24/[address] Vaughn Referral (recommentation): None Educator: Yolis De La Torre RN [facility] 10-22-2024 History of Presen t illness Narrative DATE OF SERVICE: 10/23/2024 PROBLEM: Josephine Renee presents for pre-op teaching. PRE-OP DIAGNOSIS: Endometrial Cancer SCHEDULED SURGERY AND DATE: 10/30/2024 at [facility]; LAPAROSCOPIC HYSTERECTOMY TOTAL FOR UTERUS 250 G OR LESS W/REMOVAL TUBE(S) AND/OR OVARY(S) and INTRAOPERATIVE ID OF SENTINEL LYMPH NODE(S) INCL'D INJECTION OF NON-RAD DYE WHEN PERFORMED PRIMARY SURGEON: Frank Vaughn MD NURSING PREOP ASSESSMENT: Fevers, chills, cough, or nasal congestion: No Vaginal itching, burning, discharge, or odor: No Pain with urination, frequency, urgency, cloudy or foul smelling urine: No If yes to any of the above then MD notified: Not Applicable ADVANCED CARE PLANNING: Does the patient have an advanced directive: Yes Does [facility] have a copy of the patient's advanced directive: No Was advanced directive given to the patient: No PATIENT LEARNING ASSESSMENT: Individual patient/family learning needs evaluated and addressed: Yes Cognitive ability: Alert and oriented Motivation to learn: Eager Interested Factors affecting learning: None Physical limitations affecting learning: None Patient learns best by: Individual Instruction Method of instruction: Individual instruction Instructions provided to: Patient via telephone. Written material provided prior to education appointment. Family support: High - Very involved in pt care PRE- AND POST-OPERATIVE TEACHING Pre-operative teaching and supplemental material provided and reviewed with patient: Your Surgical Guide Book Map Written pre-op and post-op instructions Antibacterial soap: given to patient prior to preop teaching appointment Pre-operative instructions provided and reviewed with patient/family: No eating, drinking, or smoking after midnight prior to surgery unless otherwise directed No alcohol the day before surgery Medications as prescribed by anesthesia, internal medicine, surgeon, or MOTOR VEHICLE ESCORT DRIVER Stop NSAIDs, Aspirin (ASA), vitamins, herbal supplements, herbal teas, and diet pills 7-10 days prior to surgery OK to take tylenol prn pain unless otherwise directed by physician Call surgery coordinators if any other questions about surgery date or pre-op appointments Bowel prep instructions: NPO after midnight Day of surgery instructions provided and reviewed with patient/family: Arrival time (call surgical coordinators on the office day prior to surgery for verification) No jewelry, body piercing, makeup, contacts, lotions, nail montenegrin on fingers, or anything in hair on arrival to surgery Wear low healed shoes and loose fitting clothing Leave all valuables at home or with a family member Directions to [facility] and [facility], [place] by [facility] Parking/parking validation on the day prior to surgery Admission/check in (Report to DESK J1-9 for surgery) Holding area Placement of IV Surgical positioning Family waiting area Surgical recovery room Post-operative instructions provided and reviewed with patient/family: SEE PATIENT INSTRUCTION SECTION FOR DETAILS. SYMPTOMS TO NOTIFY MD - Fever, chills, nausea, vomiting, increased or severe pain, heavy vaginal bleeding, foul smelling vaginal drainage, pain or swelling in extremities. URGENT SYMPTOMS - Call 911 or go to ER if any shortness of breath, difficulty breathing, or chest pain. HOW TO CONTACT PHYSICIAN - Physician's office phone number given to patient, if after hours patient instructed to call photogravure press operator and ask for caisson worker geological engineering teacher onc resident. ANASTASIA program offered to patient: No Additional teaching as indicated by patient/family learning needs. PATIENT LEARNING EVALUATION & FOLLOW UP PLAN: Patient and/or family express understanding of upcoming surgery, pre-operative preparation, the operative process, and post-operative instructions. Follow up plan: Patient instructed to call with any further issues Patient has a post-op appointment scheduled: Yes 11/24/[address] Vaughn Referral (recommentation): None Educator: Yolis De La Torre RN [facility] documented in this encounter [facility] 10-22-2024 Instructions Yolis De La Torre RN - 10/22/2024 11:26 AM EDT Images from the original note were not included. PRODUCTION OPERATIONS MANAGER ONCOLOGY PHYSICIAN CONTACT INFORMATION Surgery Scheduling Office Surgeons: Dr. Tiff Mcneal Dr. Zoraida Galvan Dr. Karo Singleton Dr. Kulwant Schmidt Dr. Juliann John Dr. Laura Fenton Dr. Lico Edgar Dr. Fco Dexter Dr. Frank Vaughn Dr. Luis Sales Lead Pharmacy Technician Oncology Nurse Practitioners: Karyn Soares, SEAM STAY STITCHER.STEVAN Bower, SEAM STAY STITCHER.STEVAN Nelson, SEAM STAY STITCHER.STEVAN Avitia, SEAM STAY STITCHER.STEVAN Vyas, SEAM STAY STITCHER.SUPERINTENDENT ELECTRIC POWER After 4:30 pm or on holidays or weekends, call: or . Ask the photogravure press operator to page the "geological engineering teacher oncologist caisson worker." PRE-OPERATIVE CHECKLIST: PATIENT INSTRUCTIONS PRIOR TO SURGERY Our guidelines have changed, so please read these instructions carefully. Your surgery may be cancelled if you do not follow these instructions. MY ARRIVAL TIME IS: I have been instructed not to have any solid food to eat after midnight prior to my surgery (this includes no gum, mints, smoking). I am allowed to drink small amounts (up to 12 oz) of clear liquids up until 2 hours prior to my arrival time. Clear liquids include water, fruit juices without pulp, carbonated beverages (i.e. mena flower), electrolyte beverages (i.e. Gatorade), clear tea and black coffee, clear broth, popsicles and jello. (No milk). No alcohol the day before or day of surgery. I will bring this binder to all pre and post-operative appointments AND day of surgery. MEDICATION STOPPAGE: Unless my surgeon tells me differently, I will STOP THESE MEDICATIONS 7 DAYS PRIOR TO SURGERY: (Motrin/ibuprofen/Naproxen/Aleve /Advil), Aspirin, vitamin E, herbal medications, diet pills, and xumw-ans-dqeodmv medications. Tylenol (acetaminophen) is okay. I will not wear jewelry, body piercing(s), makeup, nail montenegrin, hairpins, or contacts on the day of surgery. I am to leave valuables and money at home or with family members. If I am prescribed inhalers for breathing, I will use them and bring them to the hospital. Medication(s) to be taken on the morning of surgery with a few sips of water: If I am taking any of the following blood thinning medications - Aspirin, clopidogrel (Plavix), ticagrelor (Brilinta), prasugrel (Efficient), ticlodipine (Ticlid), warfarin (Coumadin), dibigatran (Pradaxa) or rivaroxaban (Xarelto) - I will discuss whether or not I should stop them before surgery with my surgeon. Discuss medication changes with your supervisor hot dip tinning or primary care physician as well. If I stopped taking my blood-thinning medication, I will ask the surgeon when to resume taking it. If I am an outpatient, a responsible person will drive me home and it was suggested that someone stay with me for 24 hours. I understand that a business operations director or cabdriver is NOT a responsible caregiver. Patients with diabetes, I will not take my morning diabetes medication (pills) on the morning of surgery. If I am on insulin, someone has gone over those instructions with me for the morning of surgery. I understand if my surgery is delayed, I will notify the check in desk that I have diabetes. See the Diabetic Guidelines Before Surgery in the patient education section. If I have Obstructive Sleep Apnea and use a CPAP/BiPAP machine, I will bring my mask, tubing, and machine with me on the day of surgery. Pain management education material found in Your Surgical Guide was reviewed with me. To find out my arrival time for surgery, I must call my surgical territory manager after 2pm the day before surgery. Pre-operative instructions given by: PREOP INSTRUCTIONS THE DAY OF SURGERY/CHECK IN Report to DESK J1-9 for surgery. A map is located in Your Surgical Guide Book. The online version of the surgical guide book can be found at: [email or web address] The address is [address] [place] [address]/[address] [address] INFECTION PREVENTION Please notify your doctor if you have any signs of an infection (i.e. fever, severe cough, nasal congestion, pain with urination, abnormal vaginal discharge, diarrhea, etc). Your surgeon will let you know if a bowel prep is needed before your surgery. If so, please see the attached instructions. Shower the night before surgery AND the morning of surgery with Hibiclens (provided by your surgeon). If you are allergic to Hibiclens or unable to obtain the Hibiclens, please wash with antibacterial soap. Wash your body from the neck down, focusing on your abdomen, belly button and external genitalia. Do not forget to scrub any skin folds and creases. No lotions, oils, creams, or powders after your shower. Underarm deodorant is okay. No shaving (abdominal or pubic hair) or douching the day before surgery. You may be asked to apply an antiseptic solution called Chlorhexidine Gluconate (CHG) which will be provided to you on arrival to the preop area. Hand washing is extremely important in preventing infection (for both you as the patient and for the caregivers). HOSPITALIZATION Before you leave the hospital, you typically need to be able to eat/drink, urinate, and have your pain controlled with oral medication. Your surgeon or other members of your surgeon s team will discuss any other specific medical issues related to your discharge with you. Your surgeon may order intermittent compression sleeves. These are massaging leg pumps to help prevent blood clots after surgery. See Your Surgical Guide Book for more information. It is also very important that you walk as soon as possible and as frequently as possible after surgery. This will help decrease your risk of blood clots, exercise your lungs and speed up your recovery after surgery. If you are admitted to the hospital overnight, you will be given an incentive spirometer, which is a breathing machine that will help make sure that you are taking deep breaths and expanding your lungs while in the hospital. See Your Surgical Guide Book for more information. [facility] TEAM At the [facility], we have a multidisciplinary team of caregivers that includes fellows, residents, nurse practitioners, physician assistants, clinical nurse specialists, nurses, medical assistants, patient care nursing assistants, social workers, social work case manager and many others. We all have different roles and responsibilities but we are all here to help. POSTOP: LAPAROSCOPIC SURGERY WHAT TO EXPECT AT HOME Recovery from surgery is generally 2-6 weeks, but sometimes longer for more strenuous activity. It is normal to be very tired during this time. It is normal to have some drainage or a small amount of vaginal bleeding after surgery which may last up to 6 weeks. You will most likely experience gas pain, abdominal swelling, or shoulder pain for 24-72 hours after surgery. This is from the carbon dioxide gas put into your abdomen to better visualize your organs. A warm shower, heating pad, and/or walking may help. You will have 1-5 small incisions on your abdomen. There will be dissolvable stitches under your skin that do not need to be removed. You will also have surgical glue or steri-strips (paper tape) on the incisions. These may be removed when they start to fall off on their own, or in 7-10 days. ACTIVITY No heavy lifting/pushing/pulling for 4-6 weeks. Do not lift anything more than 10-15 lbs (such as laundry, groceries, children, pets), vacuum, push heavy doors or grocery carts, etc. You may climb stairs as tolerated. Do not put anything in the vagina for 6 weeks after surgery unless otherwise instructed by your doctor (including tampons, douching, sexual intercourse, etc). No driving for about 2-3 weeks after surgery, while you are taking narcotic pain medication, or until you feel that you are ready. Avoid sitting or lying in bed for more than 2 hours at a time while you are awake to reduce your risk of blood clots. Return to work when directed by your surgeon. Please contact your surgeon s office if any FMLA or other paperwork is needed. WOUND CARE You will have 1-5 small incisions on your abdomen. If you have a dressing (big, white, square band-aid), please remove it 24 hour after your surgery. You may have surgical glue or steri-strips on the incisions and these may be removed once they start to fall off. Shower daily after surgery. Wash your incision with antibacterial soap (such as Dial). Pat your incision dry with a clean towel. No tub baths until wound is completely healed. Wash your hands frequently, especially before touching your incision, changing any dressings, after using the restroom, and before eating. PAIN MANAGEMENT You will be given prescriptions for a variety of pain medications (opioid and non-opioid) before you leave the hospital. Surgery will cause pain and everyone has a different pain tolerance. It is safer to find the right combination and amount of medicine to manage your pain. We recommend that you take the non-opioid medication (acetaminophen and ibuprofen) on a regular schedule after surgery. You can take these medications on an alternating schedule so that you are taking one or the other every 3-4 hours. The maximum total daily dose of acetaminophen is 4,000mg and the maximum total daily dose of ibuprofen is 2,400mg. Take the opioid prescription ONLY when your pain is severe and never take more pills or more frequent doses than prescribed. Opioids (narcotics) can cause serious side effects. The risks increase the longer they are used. Taking opioids may cause: constipation, drowsiness, itching, nausea/vomiting. More serious side effects of opioids may include: addiction or dependence, life threatening overdose, or dizziness leading to falls/injury. Keep your pain medication locked in a safe place. Never share your pain medication with others. If you have any remaining opioid pills after you recover from surgery, please bring them to a medication disposal station (located in many of the [facility] pharmacies). Do not flush them down the toilet. Constipation is a common problem after surgery. You should take a stool softener (i.e. colace) twice a day, especially if you are taking opioids. If a stool softener alone is not helping to manage your constipation, you can also take Miralax and/or milk of magnesia as needed. WHEN TO CALL THE DOCTOR Call your doctor if you have any of the following symptoms: Fever (>100.4 F or 38.0 C) or chills. Incision problems such as redness, warmth, swelling, or foul smelling drainage. Severe nausea or persistent vomiting. Bright red vaginal bleeding (soaking >1 pad/hour) or foul smelling vaginal drainage. Severe pain not relieved with pain medication. Pain and swelling in your legs, especially if it is only on one side and not the other. Pain with urination, cloudy urine, or foul smelling urine. Or if you have any other problems or questions. CALL 911 or go to the ED if you have any shortness of breath, difficulty breathing, or chest pain. Advance Directives Every adult has the right to direct their own medical care. Having an advance directive on file helps to ensure that you receive the care you want if a medical condition or injury renders you unable to make decisions or communicate. Forms can be found on the [facility] Advance Directives site. You do not need a alum plant supervisor to complete advance directive documents. [email or web address] Talking about end-of-life issues is difficult, but it truly is a gift to your loved ones. We suggest using The Conversation Project ([facility] Internationalationproject.org) to help guide you through discussing and thinking about your wishes/preferences, goals and values and completing your advance directive. After you complete the documents, talk to those people who may be involved with your healthcare decision making, and give them a copy of your forms to make sure your wishes are followed. Please bring a copy of your advance directive documents to your next appointment, or email to as an attachment in either PDF, TIFF, or JPEG format. You can also mail to: [facility] Health Information Management, [employer] Advance Directive Processing [id number] [place], [place] [address] documented in this encounter [facility] 10-20-2024 Instructions Estephania Larsen APRN.SUPERINTENDENT ELECTRIC POWER - 10/20/2024 9:34 AM EDT Images from the original note were not included. [facility] PATIENT PREOPERATIVE INSTRUCTIONS No ref. provider found has scheduled you for your procedure at this surgery center: [facility] [place] Scheduling Office: [phone] --[address], [place] [address]. Please read below carefully for your personalized instructions. Dietary Restrictions: - No solid food after midnight. - You may have 12 ounces of clear liquids (water, clear juices such as apple juice or gatorade, carbonated beverages, clear tea, black coffee, jello) until 2 hours before scheduled arrival at facility. No red/purple coloring and no creamer/sugar Medications: Unless instructed differently below, stay on all of your medications until your surgery. If you start any new medications after today's visit, please contact your surgeon. Pre-Surgery Med Instructions Medication Instructions MAGNESIUM ORAL Hold 7 days before surgery. Last dose 10/22/2024. VITAMIN K2 ORAL Hold 7 days before surgery. Last dose 10/22/2024. Biotin 10 mg tab Hold 7 days before surgery. Last dose 10/22/2024. calcium carbonate (CALTRATE) 600 mg calcium (1,500 mg) tab Hold 7 days before surgery. Last dose 10/22/2024. Cholecalciferol, Vitamin D3, 25 mcg (1,000 unit) cap Hold 7 days before surgery. Last dose 10/22/2024. zoledronic acid (RECLAST) 5 mg/100 mL PREMIX piggyback Do not take the day of surgery DULoxetine (CYMBALTA) 20 mg capsule If you normally take this medication in the morning, take the morning of surgery. If you start any new medications after today's visit, please contact the surgeon's office. If you are currently using a ljpn-yed-fpek injectable or oral medication for diabetes or weight loss such as Dulaglutide (Trulicity), Exenatide (Byetta, Bydureon), Liraglutide (Victoza, Saxenda), Semaglutide (Ozempic, Wegovy, Rybelsus), or Tirzepatide (Mounjaro), the medicine should be stopped at least 7 days before surgery. These medicines can cause food to remain in your stomach for a very long time and increase the risks from surgery and anesthesia. Not stopping the medication for a long enough time may result in your surgery being rescheduled. Blood Thinning Medications: - Stop NSAIDS (Ibuprofen, Advil, Aleve, Motrin, Celebrex, Mobic, etc.) 7 days before surgery, as directed by your surgeon. - Stop Aspirin 7 days before surgery, as directed by your surgeon. - Stop ALL herbal and dietary supplements 7 days before surgery. - You may take Tylenol (Acetaminophen) or any of your pain medications that do not contain aspirin or NSAIDS as needed. Important Reminders: - Candy, mints, and tobacco products are NOT permitted the morning of surgery. - Hearing aids, dentures and glasses may be worn the morning of surgery. - NO jewelry, body piercings, makeup, hairpins or contacts are to be worn the day of surgery. If you develop symptoms such as a fever, cold, or flu, or have other changes to your health within TWO DAYS of scheduled surgery or the morning of surgery, please contact the surgery center above. Personal Belongings: -Please have photo ID and insurance cards. -If you do not have a copy of advance directives on file with us, please bring a copy with you on the day of surgery. - Leave ALL valuables and money at home or with family members. - Please bring high-quality footwear, such as sneakers, to the hospital for ambulating post-surgery. For Outpatient Procedures: - YOU MUST HAVE A RESPONSIBLE HEARING AIDE TECHNICIAN TAKE YOU HOME. A LOG CHAIN FEEDER OR TRIAL MANAGER CANNOT BE MADE A RESPONSIBLE HEARING AIDE TECHNICIAN. - We recommend that a responsible person stays with you overnight to take care of you. - You cannot stay in a hotel alone after outpatient surgery. You will not be permitted to have your surgery, if you do not have someone to take care of you. Arrival Time for Surgery: - To obtain your arrival time for surgery, call your physician's office the day before your surgery. - If you have received different instructions about finding out your arrival time from your surgeon, please follow those instructions. - If your surgery is scheduled for Sunday, call the Sunday before. Your surgeon s care team coordinator scheduler will tell you what time to call the office. - If you have not reached the departmental care team coordinator scheduler by 5 P.M., call [phone] after 5 P.M. the day before your surgery. Please be aware that emergency situations arise, which may delay or change your surgical time. If this happens, we will notify you as soon as possible and regret any inconvenience. If you already have an Advance Directive, please fax a copy to [phone] or email to for it to be added to your chart. If you do not have an Advance Directive, you can find the appropriate form and more information at [email or web address]. We recommend that you complete the Advance Directive form found on the website and bring it with you the day of your surgery. It can be witnessed and scanned into your chart that day. Estephania Larsen APRN.STEVAN documented in this encounter [facility] 10-20-2024 History and physical note Images from the original note were not included. [facility] HISTORY AND PHYSICAL EXAMINATION SERVICE DATE: 10/20/2024 SERVICE TIME: 11:20 AM PRIMARY CARE PHYSICIAN: Sergio Landaverde MD Assessment Patient has the following medical conditions which may affect marlys-operative course: Age-related osteoporosis without current pathological fracture Assessment: receiving Reclast Hydronephrosis Assessment: hx Creatinine Date Value Ref Range Status 09/22/2024 0.77 0.58 - 0.96 mg/dL Final 07/02/2024 0.73 0.58 - 0.96 mg/dL Final 12/31/2023 0.86 0.58 - 0.96 mg/dL Final 07/04/2023 0.79 0.58 - 0.96 mg/dL 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 Rituximab/bendamustine x 6 cycles. 07/2021-01/2022 (near CR) ANESTHESIA FINDINGS: Intubation History: No history of difficult intubation Significant Anesthesia Considerations: none Airway History: No history of difficult airway Gaston Activity Status Index: METS: Climb a flight of stairs or walk up a hill (5.50 METs) DASI Score: 5.5 Patient denies any chest pain or undue shortness of breath with the above physical activity. Clinical Frailty Scale: 3. Well, with treated comorbid disease STOP-Bang Score: Denies snoring loudly Denies feeling tired, fatigued, or sleepy during the daytime Has not been observed to stop breathing or choking/gasping during sleep Denies having high blood pressure BMI less than or equal to 35 kg/m^2 Patient 50 years old or younger Does not have a large neck Non-male patient STOP-Bang Score: 0 [id number] Score: Age: <65 Sex: female CHF history: No Hypertension history: No Stroke/TIA/thromboembolism history: No Vascular disease history: No Diabetes history: No [id number] Score: 1 ARISCAT Score: Age: 51-80 Preoperative SpO2: >=96% Respiratory infection in the last month: No Preoperative anemia: No Surgical incision: peripheral Duration of surgery: >3 hrs Emergency procedure: No ARISCAT Score: 26 I - PHYSICAL EVALUATION AIRWAY Patient intubated: No. Tracheostomy tube not present Mallampati: I. TM distance: >3 FB. Neck ROM: full ROM without neurological symptoms. Mouth opening: adequate. Short neck: no. Thick neck: no Trujillo present: no Lip Bite Test: I Microretrognathia/Micronagthia/R ecessed Chin: No DENTAL Dental findings: teeth intact. II - ANESTHESIA PLAN Anesthetic Plan: other Beta Alexandr Monitoring Plan Post Procedure Analgesic Plan Prepared for Surgery: optimally prepared for surgery. CONSULTS: Patient does not require consults for optimization at this time Planned Anesthetic: other anesthesia choice The Following Tests/Procedures Have Been Initiated: Orders Placed This Encounter MAGNESIUM ORAL Sig: Take by mouth. VITAMIN K2 ORAL Sig: Take by mouth. REASON FOR VISIT: Josephine Renee is a 59 year old female who is scheduled for Procedure(s): LAPAROSCOPIC HYSTERECTOMY TOTAL FOR UTERUS 250 G OR LESS W/REMOVAL TUBE(S) AND/OR OVARY(S) (Bilateral) INTRAOPERATIVE ID OF SENTINEL LYMPH NODE(S) INCL'D INJECTION OF NON-RAD DYE WHEN PERFORMED (Pending) at the request of Frank Chawla MD for consultation. My final recommendation will be communicated back to the requesting physician by way of shared medical record or letter. Subjective The patient has the following: COVID-19 Immunization Status Current Care Gaps Covid-19 Vaccine (2023- season) Overdue since 02/17/2024 08/28/2023 Imm Admin: COVID-19 vaccine, age 12+ yr (MODERNA) 02/27/2022 Imm Admin: COVID-19 vaccine, age 12+ yr, bivalent ([employer]) 08/03/2021 Imm Admin: COVID-19 original vaccine, full dose, monovalent (MODERNA) Only the first 3 history entries have been loaded, but more history exists. CHIEF COMPLAINT: Pre-op exam HPI: Josephine Renee is a 59 year old seen for PAC due to scheduled above surgery because of endometrial CA. 09/22/2024, Dr. Vaughn HPI: Ms. Renee is a 59 year old female who has a past medical history of Breast mass, left (2019) and Depression. On 09/26/2019, patient was diagnosed with follicular lymphoma after presenting with abdominal swelling and pain. She was referred to Dr. Hill for management. Recently, she was found to have a uterine polyp and underwent a D&C, which revealed grade 1 endometrial cancer. She is postmenopausal and has a history of laparoscopic exploratory surgery for infertility, with no findings of endometriosis. She denies current use of maintenance medications for lymphoma and is not on blood thinners. Family history is significant for pancreatic cancer in her father and probable uterine cancer in her mother. She reports having undergone genetic testing at [facility]. 1) History of lymphoma. 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 Diagnosed 07/2021. Rituximab/bendamustine x 6 cycles. 07/2021-01/2022 (near CR) REVIEW OF SYSTEMS: General: No weight loss, malaise or fevers. Neurological: No history of TIA's, stroke, SAWMILL HAND tumor, impaired sensorium, hemiplegia, paraplegia or quadraplegia. No neurological symptoms or problems. Respiratory: No history of current cough or dyspnea, or pneumonia in the past 6 weeks. No history of respiratory/pulmonary symptoms or problems. Cardiovascular: No history of HTN requiring medication, no history of angina, CHF, [place], cardiac surgery or stents. Denies rest pain, gangrene or revascularization/amputation for PVD. No history of cardiovascular symptoms or problems. GI: No history of GI symptoms or problems. No history of esophageal varices, recent ascites, or ETOH greater than 2 drinks per day. : No history of dysuria, frequency or incontinence, stones or chronic kidney disease. No difficulty urinating, nocturia > 1 time per night or hematuria. 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 Endocrine: No history of diabetes. Has not taken steroids within the past 30 days. No history of endocrinological symptoms or problems. Hematology: No history of bleeding or clotting disorder. Patient is not taking anti-coagulation or platelet medications. No history of hematological symptoms or problems. Oncology: See HPI. +hx lymphoma, s/p immuno/chemo Psych: Positive for: anxiety and depression. Negative for: Marijuana Use. Musculoskeletal: +osteoporosis, on rx Positive for: joint pain (left hip). Skin: Negative for lesions, rash and itching. Implanted Devices: No implanted devices. PAST MEDICAL HISTORY Diagnosis Date Breast mass, left 2019 Depression PAST SURGICAL HISTORY Procedure Laterality Date BX OF BREAST; INCISIONAL Left 2019 needle biopsy D&C, DIAG AND/OR THERAPEUTIC PAST SURGICAL HISTORY OF Laproscopic exploratory surgery [...] Never Smokeless tobacco: Never Vaping Use Vaping status: Never Used Substance Use Topics Alcohol use: Yes Drug use: Never Prior to Admission medications as of 10/20/24 1117 Medication Sig Last Dose Taking MAGNESIUM ORAL Take by mouth. Yes VITAMIN K2 ORAL Take by mouth. Yes Biotin 10 mg tab Take by mouth. Yes calcium carbonate (CALTRATE) 600 mg calcium (1,500 mg) tab Take by mouth. Yes Cholecalciferol, Vitamin D3, 25 mcg (1,000 unit) cap Take by mouth. Yes zoledronic acid (RECLAST) 5 mg/100 mL PREMIX piggyback Inject 5 mg intravenously every year. Yes DULoxetine (CYMBALTA) 20 mg capsule Take by mouth. Yes No medication comments found. ALLERGIES Allergen Reactions Sulfa (Sulfonamide * Rash, Other: See Comments Sulfamethoxazole-Tr* Hives, Rash Paroxetine Anaphylaxis, Other: See Comments Trimethoprim Rash, Other: See Comments Objective PHYSICAL EXAM: General: alert and oriented (x3) and healthy appearance. Pertinent negatives noted - not distressed. Skin: normal color, no rash or lesions. HEENT: EOM intact and pupils equal round. Pertinent negatives noted - no carotid bruit. Cardiovascular: regular rate and rhythm, normal S1 and S2, no rub, murmurs, or gallop. Respiratory: normal breath sounds, no wheezes or crackles. No chest wall deformity or tenderness. Abdomen: soft. Pertinent negatives noted - not tender. Extremities: no deformity, no edema or tenderness, no joint swelling or clubbing. Neurological: normal cognition and motor skills. Gait normal. No weakness or sensory deficit. PAIN ASSESSMENT: VITALS: BP 102/72 Pulse 83 Temp (Src) 98 (Temporal) Resp 14 Ht 5' 3" (1.60m) Wt 123 lb (55.8kg) SpO2 99% BMI 21.79 kg/(m^2). Diagnostic tests reviewed for today's visit: Lab Value Units Date High Low HB 13.7 g/dL 09/22/2024 15.5 11.5 HCT 41.5 % 09/22/2024 46.0 36.0 WBC 5.02 k/uL 09/22/2024 11.00 3.70 PLT 311 k/uL 09/22/2024 400 150 NA 143 mmol/L 09/22/2024 144 136 K 3.5 mmol/L 09/22/2024 5.1 3.7 GLUC 85 mg/dL 09/22/2024 99 74 BUN 14 mg/dL 09/22/2024 21 7 CREAT 0.77 mg/dL 09/22/2024 0.96 0.58 PTSEC 11.0 sec 09/22/2024 13.0 9.7 INR 1.0 no uni* 09/22/2024 1.3 0.9 APTT 28.8 sec 09/22/2024 32.4 23.0 ALT 15 U/L 09/22/2024 38 7 AST 22 U/L 09/22/2024 35 13 TBILI 0.4 mg/dL 09/22/2024 1.3 0.2 TSH No results within date range. Lab Value Units Date High Low HCGQT No results within date range. UHCG No results within date range. HCG, BODY* No results within date range. Lab Value Units Date High Low ABORHD No results within date range. ABSCREEN No results within date range. No results found for: "HBA1C" Recent Results (from the past 8760 hours) ECG COMPLETE Collection Time: 10/20/24 9:51 AM Result Value Ventricular Rate 73 Atrial Rate 73 QRS Duration 70 QT Interval 382 QTC Calculation (Bazett) 420 Calculated R Canton -7 Calculated T [place] 55 Impression ACCELERATED JUNCTIONAL RHYTHM LOW VOLTAGE QRS, CONSIDER PULMONARY DISEASE, PERICARDIAL EFFUSION, OR NORMAL VARIANT ABNORMAL ECG No results found for this or any previous visit (from the past 78796 hours). Instructions Given to Patient: Instructions located in the after visit summary. Patient given verbal and written preop instructions and voices comprehension and compliance. SIGNATURE: Estephania Larsen APRN.CNP PATIENT NAME: Josephine Renee DATE: October 20, 2024 TIME: 9:31 AM PAGER/CONTACT #: [facility] 10-20-2024 History and physical note Images from the original note were not included. [facility] HISTORY AND PHYSICAL EXAMINATION SERVICE DATE: 10/20/2024 SERVICE TIME: 11:20 AM PRIMARY CARE PHYSICIAN: Sergio Landaverde MD Assessment Patient has the following medical conditions which may affect marlys-operative course: Age-related osteoporosis without current pathological fracture Assessment: receiving Reclast Hydronephrosis Assessment: hx Creatinine Date Value Ref Range Status 09/22/2024 0.77 0.58 - 0.96 mg/dL Final 07/02/2024 0.73 0.58 - 0.96 mg/dL Final 12/31/2023 0.86 0.58 - 0.96 mg/dL Final 07/04/2023 0.79 0.58 - 0.96 mg/dL 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 Rituximab/bendamustine x 6 cycles. 07/2021-01/2022 (near CR) ANESTHESIA FINDINGS: Intubation History: No history of difficult intubation Significant Anesthesia Considerations: none Airway History: No history of difficult airway Gaston Activity Status Index: METS: Climb a flight of stairs or walk up a hill (5.50 METs) DASI Score: 5.5 Patient denies any chest pain or undue shortness of breath with the above physical activity. Clinical Frailty Scale: 3. Well, with treated comorbid disease STOP-Bang Score: Denies snoring loudly Denies feeling tired, fatigued, or sleepy during the daytime Has not been observed to stop breathing or choking/gasping during sleep Denies having high blood pressure BMI less than or equal to 35 kg/m^2 Patient 50 years old or younger Does not have a large neck Non-male patient STOP-Bang Score: 0 [id number] Score: Age: <65 Sex: female CHF history: No Hypertension history: No Stroke/TIA/thromboembolism history: No Vascular disease history: No Diabetes history: No [id number] Score: 1 ARISCAT Score: Age: 51-80 Preoperative SpO2: >=96% Respiratory infection in the last month: No Preoperative anemia: No Surgical incision: peripheral Duration of surgery: >3 hrs Emergency procedure: No ARISCAT Score: 26 I - PHYSICAL EVALUATION AIRWAY Patient intubated: No. Tracheostomy tube not present Mallampati: I. TM distance: >3 FB. Neck ROM: full ROM without neurological symptoms. Mouth opening: adequate. Short neck: no. Thick neck: no Trujillo present: no Lip Bite Test: I Microretrognathia/Micronagthia/R ecessed Chin: No DENTAL Dental findings: teeth intact. II - ANESTHESIA PLAN Anesthetic Plan: other Beta Alexandr Monitoring Plan Post Procedure Analgesic Plan Prepared for Surgery: optimally prepared for surgery. CONSULTS: Patient does not require consults for optimization at this time Planned Anesthetic: other anesthesia choice The Following Tests/Procedures Have Been Initiated: Orders Placed This Encounter MAGNESIUM ORAL Sig: Take by mouth. VITAMIN K2 ORAL Sig: Take by mouth. REASON FOR VISIT: Josephine Renee is a 59 year old female who is scheduled for Procedure(s): LAPAROSCOPIC HYSTERECTOMY TOTAL FOR UTERUS 250 G OR LESS W/REMOVAL TUBE(S) AND/OR OVARY(S) (Bilateral) INTRAOPERATIVE ID OF SENTINEL LYMPH NODE(S) INCL'D INJECTION OF NON-RAD DYE WHEN PERFORMED (Pending) at the request of Frank Chawla MD for consultation. My final recommendation will be communicated back to the requesting physician by way of shared medical record or letter. Subjective The patient has the following: COVID-19 Immunization Status Current Care Gaps Covid-19 Vaccine ( season) Overdue since 02/17/2024 08/28/2023 Imm Admin: COVID-19 vaccine, age 12+ yr (MODERNA) 02/27/2022 Imm Admin: COVID-19 vaccine, age 12+ yr, bivalent ([employer]) 08/03/2021 Imm Admin: COVID-19 original vaccine, full dose, monovalent (MODERNA) Only the first 3 history entries have been loaded, but more history exists. CHIEF COMPLAINT: Pre-op exam HPI: Josephine Renee is a 59 year old seen for PAC due to scheduled above surgery because of endometrial CA. 09/22/2024, Dr. Vaughn HPI: Ms. Renee is a 59 year old female who has a past medical history of Breast mass, left (2019) and Depression. On 09/26/2019, patient was diagnosed with follicular lymphoma after presenting with abdominal swelling and pain. She was referred to Dr. Hill for management. Recently, she was found to have a uterine polyp and underwent a D&C, which revealed grade 1 endometrial cancer. She is postmenopausal and has a history of laparoscopic exploratory surgery for infertility, with no findings of endometriosis. She denies current use of maintenance medications for lymphoma and is not on blood thinners. Family history is significant for pancreatic cancer in her father and probable uterine cancer in her mother. She reports having undergone genetic testing at [facility]. 1) History of lymphoma. 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 Diagnosed 07/2021. Rituximab/bendamustine x 6 cycles. 07/2021-01/2022 (near CR) REVIEW OF SYSTEMS: General: No weight loss, malaise or fevers. Neurological: No history of TIA's, stroke, SAWMILL HAND tumor, impaired sensorium, hemiplegia, paraplegia or quadraplegia. No neurological symptoms or problems. Respiratory: No history of current cough or dyspnea, or pneumonia in the past 6 weeks. No history of respiratory/pulmonary symptoms or problems. Cardiovascular: No history of HTN requiring medication, no history of angina, CHF, [place], cardiac surgery or stents. Denies rest pain, gangrene or revascularization/amputation for PVD. No history of cardiovascular symptoms or problems. GI: No history of GI symptoms or problems. No history of esophageal varices, recent ascites, or ETOH greater than 2 drinks per day. : No history of dysuria, frequency or incontinence, stones or chronic kidney disease. No difficulty urinating, nocturia > 1 time per night or hematuria. 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 Endocrine: No history of diabetes. Has not taken steroids within the past 30 days. No history of endocrinological symptoms or problems. Hematology: No history of bleeding or clotting disorder. Patient is not taking anti-coagulation or platelet medications. No history of hematological symptoms or problems. Oncology: See HPI. +hx lymphoma, s/p immuno/chemo Psych: Positive for: anxiety and depression. Negative for: Marijuana Use. Musculoskeletal: +osteoporosis, on rx Positive for: joint pain (left hip). Skin: Negative for lesions, rash and itching. Implanted Devices: No implanted devices. PAST MEDICAL HISTORY Diagnosis Date Breast mass, left 2019 Depression PAST SURGICAL HISTORY Procedure Laterality Date BX OF BREAST; INCISIONAL Left 2019 needle biopsy D&C, DIAG AND/OR THERAPEUTIC PAST SURGICAL HISTORY OF Laproscopic exploratory surgery [...] Never Smokeless tobacco: Never Vaping Use Vaping status: Never Used Substance Use Topics Alcohol use: Yes Drug use: Never Prior to Admission medications as of 10/20/24 1117 Medication Sig Last Dose Taking MAGNESIUM ORAL Take by mouth. Yes VITAMIN K2 ORAL Take by mouth. Yes Biotin 10 mg tab Take by mouth. Yes calcium carbonate (CALTRATE) 600 mg calcium (1,500 mg) tab Take by mouth. Yes Cholecalciferol, Vitamin D3, 25 mcg (1,000 unit) cap Take by mouth. Yes zoledronic acid (RECLAST) 5 mg/100 mL PREMIX piggyback Inject 5 mg intravenously every year. Yes DULoxetine (CYMBALTA) 20 mg capsule Take by mouth. Yes No medication comments found. ALLERGIES Allergen Reactions Sulfa (Sulfonamide * Rash, Other: See Comments Sulfamethoxazole-Tr* Hives, Rash Paroxetine Anaphylaxis, Other: See Comments Trimethoprim Rash, Other: See Comments Objective PHYSICAL EXAM: General: alert and oriented (x3) and healthy appearance. Pertinent negatives noted - not distressed. Skin: normal color, no rash or lesions. HEENT: EOM intact and pupils equal round. Pertinent negatives noted - no carotid bruit. Cardiovascular: regular rate and rhythm, normal S1 and S2, no rub, murmurs, or gallop. Respiratory: normal breath sounds, no wheezes or crackles. No chest wall deformity or tenderness. Abdomen: soft. Pertinent negatives noted - not tender. Extremities: no deformity, no edema or tenderness, no joint swelling or clubbing. Neurological: normal cognition and motor skills. Gait normal. No weakness or sensory deficit. PAIN ASSESSMENT: VITALS: BP 102/72 Pulse 83 Temp (Src) 98 (Temporal) Resp 14 Ht 5' 3" (1.60m) Wt 123 lb (55.8kg) SpO2 99% BMI 21.79 kg/(m^2). Diagnostic tests reviewed for today's visit: Lab Value Units Date High Low HB 13.7 g/dL 09/22/2024 15.5 11.5 HCT 41.5 % 09/22/2024 46.0 36.0 WBC 5.02 k/uL 09/22/2024 11.00 3.70 PLT 311 k/uL 09/22/2024 400 150 NA 143 mmol/L 09/22/2024 144 136 K 3.5 mmol/L 09/22/2024 5.1 3.7 GLUC 85 mg/dL 09/22/2024 99 74 BUN 14 mg/dL 09/22/2024 21 7 CREAT 0.77 mg/dL 09/22/2024 0.96 0.58 PTSEC 11.0 sec 09/22/2024 13.0 9.7 INR 1.0 no uni* 09/22/2024 1.3 0.9 APTT 28.8 sec 09/22/2024 32.4 23.0 ALT 15 U/L 09/22/2024 38 7 AST 22 U/L 09/22/2024 35 13 TBILI 0.4 mg/dL 09/22/2024 1.3 0.2 TSH No results within date range. Lab Value Units Date High Low HCGQT No results within date range. UHCG No results within date range. HCG, BODY* No results within date range. Lab Value Units Date High Low ABORHD No results within date range. ABSCREEN No results within date range. No results found for: "HBA1C" Recent Results (from the past 8760 hours) ECG COMPLETE Collection Time: 10/20/24 9:51 AM Result Value Ventricular Rate 73 Atrial Rate 73 QRS Duration 70 QT Interval 382 QTC Calculation (Bazett) 420 Calculated R Canton -7 Calculated T [place]on 55 Impression ACCELERATED JUNCTIONAL RHYTHM LOW VOLTAGE QRS, CONSIDER PULMONARY DISEASE, PERICARDIAL EFFUSION, OR NORMAL VARIANT ABNORMAL ECG No results found for this or any previous visit (from the past 83474 hours). Instructions Given to Patient: Instructions located in the after visit summary. Patient given verbal and written preop instructions and voices comprehension and compliance. SIGNATURE: Estephania Larsen APRN.CNP PATIENT NAME: Josephine Renee DATE: October 20, 2024 TIME: 9:31 AM PAGER/CONTACT #: documented in this encounter [facility] 10-01-2024 Telephone encounter Note Spoke with Ms. Renee who states she is going to have a radical hysterectomy for endometrial cancer. During the procedure she will have a groin lymph node removed for immediate biopsy. Ms. Renee is concerned that the provider performing the procedure will mistake her lymphoma cells for endometrial cancer that has metastasized. I encouraged Ms. Renee to reach out to Dr. Vaughn with her concerns so that he can explain to her how he will diagnose what type of cancer this is during the procedure. She is aware that this information is being forwarded to Dr. Hill and someone from the team will get back to her if Dr. Hill has any further recommendations. [facility] Work Phone: 10-01-2024 Miscellaneous Notes Spoke with Ms. Renee who states she is going to have a radical hysterectomy for endometrial cancer. During the procedure she will have a groin lymph node removed for immediate biopsy. Ms. Renee is concerned that the provider performing the procedure will mistake her lymphoma cells for endometrial cancer that has metastasized. I encouraged Ms. Renee to reach out to Dr. Vaughn with her concerns so that he can explain to her how he will diagnose what type of cancer this is during the procedure. She is aware that this information is being forwarded to Dr. Hill and someone from the team will get back to her if Dr. Hill has any further recommendations. Left message requesting return call Josephine Renee is calling Karo Hill MD today regarding 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 Patient is requesting a call back from the care team. Patient has a upcoming surgery with OBGYN Oncology. Patient would like to speak with the care team before this happens on 10/30/24. Duration of symptoms: N/A Requesting response back: call on cell [phone] (home) [phone] (cell) Pam Palacio October 01, 2024 documented in this encounter [facility] 10-01-2024 Telephone encounter Note Left message requesting return call [facility] 10-01-2024 Telephone encounter Note Josephine Renee is calling Karo Hill MD today regarding 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 Patient is requesting a call back from the care team. Patient has a upcoming surgery with OBGYN Oncology. Patient would like to speak with the care team before this happens on 10/30/24. Duration of symptoms: N/A Requesting response back: call on cell [phone] (home) [phone] (cell) Pam Palacio October 01, 2024 [facility] 09-26-2024 History of Presen t illness Narrative Radiology Service Progress Note PATIENT NAME: Josephine Renee DATE OF SERVICE: September 26, 2024 TIME: 9:44 AM PATIENT IDENTITY VERIFICATION COMPLETED USING TWO (2) IDENTIFIERS: Name and Date of confirmed by patient verbally. FALL SCREENING: Has the patient had 2 falls in the last year or 1 fall with injury or currently using an Ambulatory Assistive Device (Walker, Cane, Wheelchair, Crutches, etc.)? No PATIENT GENDER DATA: Assigned female at . status: : No status: NO. PATIENT RELEVANT IMPLANT DATA REVIEWED: Not Applicable PATIENT PRESENTS WITH AN IMPLANTABLE OR ATTACHED DISTANCE EDUCATION COORDINATOR: No RADIOLOGY DEPARTMENT: General X-ray: Exam(s) Completed: Chest X-Ray PERIPHERAL IV DATA: Not applicable SIGNED BY: RT Zulma(R) September 26, 2024 9:44 AM documented in this encounter [facility] 09-26-2024 Note HNO ID: [id number] Author: BRIAN SAMUEL RT(R) Service: Radiology Author Type: Technologist Type: Progress Notes Filed: 09/26/2024 09:49 Note Text: Radiology Service Progress Note PATIENT NAME: Josephine Renee DATE OF SERVICE: September 26, 2024 TIME: 9:44 AM PATIENT IDENTITY VERIFICATION COMPLETED USING TWO (2) IDENTIFIERS: Name and Date of confirmed by patient verbally. FALL SCREENING: Has the patient had 2 falls in the last year or 1 fall with injury or currently using an Ambulatory Assistive Device (Walker, Cane, Wheelchair, Crutches, etc.)? No PATIENT GENDER DATA: Assigned female at . status: : No status: NO. PATIENT RELEVANT IMPLANT DATA REVIEWED: Not Applicable PATIENT PRESENTS WITH AN IMPLANTABLE OR ATTACHED DISTANCE EDUCATION COORDINATOR: No RADIOLOGY DEPARTMENT: General X-ray: Exam(s) Completed: Chest X-Ray PERIPHERAL IV DATA: Not applicable SIGNED BY: RT Zulma(R) September 26, 2024 9:44 AM [facility] 09-23-2024 Telephone encounter Note Called patient and she said she will call back to schedule. ] Ro WEIR [facility] 09-23-2024 Miscellaneous Notes Called patient and she said she will call back to schedule. ] Ro WEIR documented in this encounter [facility] 09-22-2024 Telephone encounter Note Patient calling regarding the chest x-ray order that she just received. She would like to know what she needs to have this done and she needs to be careful with the amount of radiation she receives. [facility] 09-22-2024 Miscellaneous Notes Patient calling regarding the chest x-ray order that she just received. She would like to know what she needs to have this done and she needs to be careful with the amount of radiation she receives. documented in this encounter [facility] 09-22-2024 Instructions Jonathan Bower APRN.SUPERINTENDENT ELECTRIC POWER - 09/22/2024 2:11 PM EDT Images from the original note were not included. Please visit the following website for the [facility] surgery guide." [email or web address] PATIENT SURGICAL CHECKLIST - NEXT STEPS Your surgeon's office will call you to arrange your surgery date and pre-admission testing appointments. You should receive a call within 2-5 business days from our scheduling team. (If you do not receive a call within 5 days - please call [phone]) Pre-admission testing appointments include: - Preop anesthesia clearance with [facility] (pre-anesthesia consultation clinic). There are options for in person appointments or virtual appointments based on the recommendations from your surgeon. - Preop exam which can be done at the time of an in person pre-anesthesia appointment or by your surgeon's team depending on the complexity of your medical history. This needs to be done within 30 days of surgery. - Virtual shared preop nurse teaching appointment. - Lab work - Any other testing that the provider orders for prior to surgery if needed You will receive a call from the care team coordinator scheduler the business day prior to your surgery as to when and where to arrive on the day of your scheduled surgery PRODUCTION OPERATIONS MANAGER ONCOLOGY PHYSICIAN CONTACT INFORMATION Surgery Scheduling Office Surgeons: Dr. Tiff Mcneal Dr. Zoraida Galvan Dr. Karo Singleton Dr. Kulwant Schmidt Dr. Juliann John Dr. Laura Fenton Dr. Lico Edgar Dr. Fco Dexter Dr. Frank Vaughn Dr. Luis Sales Lead Pharmacy Technician Oncology Nurse Practitioners: Karyn Soares, SEAM STAY STITCHER.STEVAN Bower, SEAM STAY STITCHER.STEVAN Nelson, SEAM STAY STITCHER.STEVAN Avitia, SEAM STAY STITCHER.STEVAN Vyas, SEAM STAY STITCHER.SUPERINTENDENT ELECTRIC POWER After 4:30 pm or on holidays or weekends, call: or . Ask the photogravure press operator to page the "geological engineering teacher oncologist caisson worker." PRE-OPERATIVE CHECKLIST: PATIENT INSTRUCTIONS PRIOR TO SURGERY Our guidelines have changed, so please read these instructions carefully. Your surgery may be cancelled if you do not follow these instructions. MY ARRIVAL TIME IS: I have been instructed not to have any solid food to eat after midnight prior to my surgery (this includes no gum, mints, smoking). I am allowed to drink small amounts (up to 12 oz) of clear liquids up until 2 hours prior to my arrival time. Clear liquids include water, fruit juices without pulp, carbonated beverages (i.e. mena flower), electrolyte beverages (i.e. Gatorade), clear tea and black coffee, clear broth, popsicles and jello. (No milk). No alcohol the day before or day of surgery. I will bring this binder to all pre and post-operative appointments AND day of surgery. MEDICATION STOPPAGE: Unless my surgeon tells me differently, I will STOP THESE MEDICATIONS 7 DAYS PRIOR TO SURGERY: (Motrin/ibuprofen/Naproxen/Aleve /Advil), Aspirin, vitamin E, herbal medications, diet pills, and fgze-sug-hqetlde medications. Tylenol (acetaminophen) is okay. I will not wear jewelry, body piercing(s), makeup, nail montenegrin, hairpins, or contacts on the day of surgery. I am to leave valuables and money at home or with family members. If I am prescribed inhalers for breathing, I will use them and bring them to the hospital. Medication(s) to be taken on the morning of surgery with a few sips of water: If I am taking any of the following blood thinning medications - Aspirin, clopidogrel (Plavix), ticagrelor (Brilinta), prasugrel (Efficient), ticlodipine (Ticlid), warfarin (Coumadin), dibigatran (Pradaxa) or rivaroxaban (Xarelto) - I will discuss whether or not I should stop them before surgery with my surgeon. Discuss medication changes with your supervisor hot dip tinning or primary care physician as well. If I stopped taking my blood-thinning medication, I will ask the surgeon when to resume taking it. If I am an outpatient, a responsible person will drive me home and it was suggested that someone stay with me for 24 hours. I understand that a business operations director or cabdriver is NOT a responsible caregiver. Patients with diabetes, I will not take my morning diabetes medication (pills) on the morning of surgery. If I am on insulin, someone has gone over those instructions with me for the morning of surgery. I understand if my surgery is delayed, I will notify the check in desk that I have diabetes. See the Diabetic Guidelines Before Surgery in the patient education section. If I have Obstructive Sleep Apnea and use a CPAP/BiPAP machine, I will bring my mask, tubing, and machine with me on the day of surgery. Pain management education material found in Your Surgical Guide was reviewed with me. To find out my arrival time for surgery, I must call my surgical territory manager after 2pm the day before surgery. Pre-operative instructions given by: PREOP INSTRUCTIONS THE DAY OF SURGERY/CHECK IN Report to DESK [facility] for surgery. A map is located in Your Surgical Guide Book. The online version of the surgical guide book can be found at: [email or web address] The address is [address] [place] [address] INFECTION PREVENTION Please notify your doctor if you have any signs of an infection (i.e. fever, severe cough, nasal congestion, pain with urination, abnormal vaginal discharge, diarrhea, etc). Your surgeon will let you know if a bowel prep is needed before your surgery. If so, please see the attached instructions. Shower the night before surgery AND the morning of surgery with Hibiclens (provided by your surgeon). If you are allergic to Hibiclens or unable to obtain the Hibiclens, please wash with antibacterial soap. Wash your body from the neck down, focusing on your abdomen, belly button and external genitalia. Do not forget to scrub any skin folds and creases. No lotions, oils, creams, or powders after your shower. Underarm deodorant is okay. No shaving (abdominal or pubic hair) or douching the day before surgery. You may be asked to apply an antiseptic solution called Chlorhexidine Gluconate (CHG) which will be provided to you on arrival to the preop area. Hand washing is extremely important in preventing infection (for both you as the patient and for the caregivers). HOSPITALIZATION Before you leave the hospital, you typically need to be able to eat/drink, urinate, and have your pain controlled with oral medication. Your surgeon or other members of your surgeon s team will discuss any other specific medical issues related to your discharge with you. Your surgeon may order intermittent compression sleeves. These are massaging leg pumps to help prevent blood clots after surgery. See Your Surgical Guide Book for more information. It is also very important that you walk as soon as possible and as frequently as possible after surgery. This will help decrease your risk of blood clots, exercise your lungs and speed up your recovery after surgery. If you are admitted to the hospital overnight, you will be given an incentive spirometer, which is a breathing machine that will help make sure that you are taking deep breaths and expanding your lungs while in the hospital. See Your Surgical Guide Book for more information. [facility] TEAM At the [facility], we have a multidisciplinary team of caregivers that includes fellows, residents, nurse practitioners, physician assistants, clinical nurse specialists, nurses, medical assistants, patient care nursing assistants, social workers, social work case manager and many others. We all have different roles and responsibilities but we are all here to help. CLEAR LIQUID DIET You may eat a light breakfast on the DAY BEFORE SURGERY. Examples include oatmeal, cereal and milk, toast, and eggs. After breakfast, you may continue to drink clear liquids for the rest of the day until midnight. Examples of clear liquids include: Water Fruit juice without pulp (i.e. apple, grape, cranberry) Clear broth (i.e. chicken, beef, vegetable) Coffee or tea without cream or milk Sports drinks (i.e. Gatorade, Propel) Soda (i.e. Coke, mena flower, 7-up, etc) Domingo-Aid or Crystal Light Plain Jell-O (without fruit or whipped topping) Popsicles Or any other clear liquid (no dairy products) DO NOT eat any solid food after midnight. On the DAY OF SURGERY, you may have up to 12 oz of clear liquids up until 2 hours prior to your surgery arrival time. Failure to follow these instructions could potentially lead to the cancellation of your surgery. Please contact your surgeon's office if you have any specific questions regarding your diet instructions. POSTOP: LAPAROSCOPIC SURGERY WHAT TO EXPECT AT HOME Recovery from surgery is generally 2-6 weeks, but sometimes longer for more strenuous activity. It is normal to be very tired during this time. It is normal to have some drainage or a small amount of vaginal bleeding after surgery which may last up to 6 weeks. You will most likely experience gas pain, abdominal swelling, or shoulder pain for 24-72 hours after surgery. This is from the carbon dioxide gas put into your abdomen to better visualize your organs. A warm shower, heating pad, and/or walking may help. You will have 1-5 small incisions on your abdomen. There will be dissolvable stitches under your skin that do not need to be removed. You will also have surgical glue or steri-strips (paper tape) on the incisions. These may be removed when they start to fall off on their own, or in 7-10 days. ACTIVITY No heavy lifting/pushing/pulling for 4-6 weeks. Do not lift anything more than 10-15 lbs (such as laundry, groceries, children, pets), vacuum, push heavy doors or grocery carts, etc. You may climb stairs as tolerated. Do not put anything in the vagina for 6 weeks after surgery unless otherwise instructed by your doctor (including tampons, douching, sexual intercourse, etc). No driving for about 2-3 weeks after surgery, while you are taking narcotic pain medication, or until you feel that you are ready. Avoid sitting or lying in bed for more than 2 hours at a time while you are awake to reduce your risk of blood clots. Return to work when directed by your surgeon. Please contact your surgeon s office if any FMLA or other paperwork is needed. WOUND CARE You will have 1-5 small incisions on your abdomen. If you have a dressing (big, white, square band-aid), please remove it 24 hour after your surgery. You may have surgical glue or steri-strips on the incisions and these may be removed once they start to fall off. Shower daily after surgery. Wash your incision with antibacterial soap (such as Dial). Pat your incision dry with a clean towel. No tub baths until wound is completely healed. Wash your hands frequently, especially before touching your incision, changing any dressings, after using the restroom, and before eating. PAIN MANAGEMENT You will be given prescriptions for a variety of pain medications (opioid and non-opioid) before you leave the hospital. Surgery will cause pain and everyone has a different pain tolerance. It is safer to find the right combination and amount of medicine to manage your pain. We recommend that you take the non-opioid medication (acetaminophen and ibuprofen) on a regular schedule after surgery. You can take these medications on an alternating schedule so that you are taking one or the other every 3-4 hours. The maximum total daily dose of acetaminophen is 4,000mg and the maximum total daily dose of ibuprofen is 2,400mg. Take the opioid prescription ONLY when your pain is severe and never take more pills or more frequent doses than prescribed. Opioids (narcotics) can cause serious side effects. The risks increase the longer they are used. Taking opioids may cause: constipation, drowsiness, itching, nausea/vomiting. More serious side effects of opioids may include: addiction or dependence, life threatening overdose, or dizziness leading to falls/injury. Keep your pain medication locked in a safe place. Never share your pain medication with others. If you have any remaining opioid pills after you recover from surgery, please bring them to a medication disposal station (located in many of the [facility] pharmacies). Do not flush them down the toilet. Constipation is a common problem after surgery. You should take a stool softener (i.e. colace) twice a day, especially if you are taking opioids. If a stool softener alone is not helping to manage your constipation, you can also take Miralax and/or milk of magnesia as needed. WHEN TO CALL THE DOCTOR Call your doctor if you have any of the following symptoms: Fever (>100.4 F or 38.0 C) or chills. Incision problems such as redness, warmth, swelling, or foul smelling drainage. Severe nausea or persistent vomiting. Bright red vaginal bleeding (soaking >1 pad/hour) or foul smelling vaginal drainage. Severe pain not relieved with pain medication. Pain and swelling in your legs, especially if it is only on one side and not the other. Pain with urination, cloudy urine, or foul smelling urine. Or if you have any other problems or questions. CALL 911 or go to the ED if you have any shortness of breath, difficulty breathing, or chest pain. documented in this encounter [facility] 09-22-2024 History of Presen t illness Narrative Images from the original note were not included. DATE OF SERVICE: 09/22/2024 PROBLEM: Josephine Renee is a consult from for evaluation of endometrial cancer. HPI: Ms. Renee is a 59 year old female who has a past medical history of Breast mass, left (2019) and Depression. On 09/26/2019, patient was diagnosed with follicular lymphoma after presenting with abdominal swelling and pain. She was referred to Dr. Hill for management. Recently, she was found to have a uterine polyp and underwent a D&C, which revealed grade 1 endometrial cancer. She is postmenopausal and has a history of laparoscopic exploratory surgery for infertility, with no findings of endometriosis. She denies current use of maintenance medications for lymphoma and is not on blood thinners. Family history is significant for pancreatic cancer in her father and probable uterine cancer in her mother. She reports having undergone genetic testing at [facility]. 1) History of lymphoma. 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 Diagnosed 07/2021. Rituximab/bendamustine x 6 cycles. 07/2021-01/2022 (near CR) 2) 08/26/2024 D&C IMAGING: CT CHEST: No results found. CT ABD/PELVIS: No results found. LABS: Tumor Markers CA 125 CEA CA19-9 Latest Ref Rng & Units <39 U/mL 0.0 - 2.9 ng/mL <36 U/mL 09/22/2024 11 07/18/2021 24 1.3 24 PATHOLOGY: No results found for: FINALDIAGNOS HISTORIES: PAST GYNECOLOGIC HISTORY: OB History Gravida0 Para0 Term0 Preterm0 AB0 Living0 SAB0 IAB0 Ectopic0 Multiple0 Live Births0 LMP: No LMP recorded. Patient is postmenopausal. Hormonal contraceptives: No. HRT use: No. History of abnormal pap: No. Last pap/HPV: 06/30/2019 PAST SURGICAL HISTORY Procedure Laterality Date BX OF BREAST; INCISIONAL Left 2019 needle biopsy PAST SURGICAL HISTORY OF Laproscopic exploratory surgery due to infertility PAST MEDICAL HISTORY Diagnosis Date Breast mass, left 2019 Depression FAMILY HISTORY Problem Relation Age of Onset No Known Problems Mother possible uterine cancer Pancreatic Cancer Father 90 Diabetes Sister Alcohol/Drug Brother other (TMJ) Brother Heart disease Maternal Grandmother No Known Problems Maternal Grandfather No Known Problems Paternal Grandmother Heart disease Paternal Grandfather Bipolar disorder Sister Alcohol/Drug Sister Family history of breast, ovarian, uterine or colon cancer: See above Family history of VTE: No SOCIAL HISTORY Social History Tobacco Use Smoking status: Never Smokeless tobacco: Never Vaping Use Vaping status: Never Used Substance Use Topics Alcohol use: Yes Drug use: Never 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 Yes Diagnostics Reviewed: Pathology -- Dilation and Curettage Pathology: Revealed a grade 1 uterine malignancy. OBJECTIVE: VITALS: BP 135/75 Pulse 69 Temp 37.1 C (98.7 F) Ht 161.3 cm (5' 3.5") Wt 55 kg (121 lb 4.1 oz) SpO2 100% BMI 21.14 kg/m GENERAL: Patient is a well developed, well nourished female. She is alert, oriented, pleasant, and cooperative. SKIN: Color, texture, turgor normal. No rashes or lesions. LUNGS: Clear to auscultation bilaterally. HEART: Regular rate and rhythm, no murmurs. ABDOMEN: Abdomen soft, non-tender, no hepatosplenomegaly. PELVIC: Deferred LOWER EXTREMITIES: No pitting edema, no palpable cords, and no skin changes. Chief Catalyst Operator for exam: CLAYTON Ulloa September 22, 2024 1:13 PM ASSESSMENT/PLAN: 59 yo with new diagnosis of grade 1 endometrial cancer. 1. Family history of pancreatic cancer (Z80.0) Patient's father had pancreatic cancer. Discussed potential genetic predisposition and the possibility of genetic testing. - Review previous genetic testing results from [facility]. - Consider ordering comprehensive germline testing post-surgery if previous testing was limited. 2. Endometrial cancer (HCC) (C54.1) Diagnosed with grade 1 endometrial cancer following D&C. Pathology report indicates estrogen receptor positivity. No evidence of metastasis at this time. Patient is postmenopausal. - Ordered CA-125 blood test to assess risk of metastasis. - Scheduled laparoscopic hysterectomy with bilateral salpingo-oophorectomy and sentinel lymph node biopsy in two weeks. - Discussed surgical procedure, including removal of uterus, cervix, fallopian tubes, ovaries, and sampling of sentinel lymph nodes using ICG dye. - Explained potential risks and benefits of surgery, including minimal risk of lymphedema with sentinel lymph node biopsy. - Informed patient about possible mild hot flashes post-surgery due to removal of ovaries. - Discussed recovery process: outpatient procedure with expected recovery time of 1-2 weeks for light activities, full recovery in 6 weeks. - Advised on post-operative restrictions: no vaginal insertion or heavy lifting for 6 weeks. - Pathology review of surgical specimens to determine cancer stage and further treatment if necessary. - Patient understands and agrees with the treatment plan. 3. Preop examination (Z01.818) Patient is in good health with no current maintenance medications for lymphoma and no use of blood thinners. Lungs clear bilaterally, heart sounds normal. - Completed preoperative consent form. - Provided patient with Hibiclens for preoperative skin preparation. - Scheduled CA-125 blood test. - Office will contact patient to finalize surgery date. 1. Family history of pancreatic cancer (Z80.0) Patient's father had pancreatic cancer. Discussed potential genetic predisposition and the possibility of genetic testing. - Review previous genetic testing results from [facility]. - Consider ordering comprehensive germline testing post-surgery if previous testing was limited. 2. Endometrial cancer (HCC) (C54.1) Diagnosed with grade 1 endometrial cancer following D&C. Pathology report indicates estrogen receptor positivity. No evidence of metastasis at this time. Patient is postmenopausal. - Ordered CA-125 blood test to assess risk of metastasis. - Scheduled laparoscopic hysterectomy with bilateral salpingo-oophorectomy and sentinel lymph node biopsy in two weeks. - Discussed surgical procedure, including removal of uterus, cervix, fallopian tubes, ovaries, and sampling of sentinel lymph nodes using ICG dye. - Explained potential risks and benefits of surgery, including minimal risk of lymphedema with sentinel lymph node biopsy. - Informed patient about possible mild hot flashes post-surgery due to removal of ovaries. - Discussed recovery process: outpatient procedure with expected recovery time of 1-2 weeks for light activities, full recovery in 6 weeks. - Advised on post-operative restrictions: no vaginal insertion or heavy lifting for 6 weeks. - Pathology review of surgical specimens to determine cancer stage and further treatment if necessary. - Patient understands and agrees with the treatment plan. 3. Preop examination (Z01.818) Patient is in good health with no current maintenance medications for lymphoma and no use of blood thinners. Lungs clear bilaterally, heart sounds normal. - Completed preoperative consent form. - Provided patient with Hibiclens for preoperative skin preparation. - Scheduled CA-125 blood test. - Office will contact patient to finalize surgery date.1. Family history of pancreatic cancer (Z80.0) Patient's father had pancreatic cancer. Discussed potential genetic predisposition and the possibility of genetic testing. - Review previous genetic testing results from [facility]. - Consider ordering comprehensive germline testing post-surgery if previous testing was limited. 2. Endometrial cancer (HCC) (C54.1) Diagnosed with grade 1 endometrial cancer following D&C. Pathology report indicates estrogen receptor positivity. No evidence of metastasis at this time. Patient is postmenopausal. - Ordered CA-125 blood test to assess risk of metastasis. - Scheduled laparoscopic hysterectomy with bilateral salpingo-oophorectomy and sentinel lymph node biopsy in two weeks. - Discussed surgical procedure, including removal of uterus, cervix, fallopian tubes, ovaries, and sampling of sentinel lymph nodes using ICG dye. - Explained potential risks and benefits of surgery, including minimal risk of lymphedema with sentinel lymph node biopsy. - Informed patient about possible mild hot flashes post-surgery due to removal of ovaries. - Discussed recovery process: outpatient procedure with expected recovery time of 1-2 weeks for light activities, full recovery in 6 weeks. - Advised on post-operative restrictions: no vaginal insertion or heavy lifting for 6 weeks. - Pathology review of surgical specimens to determine cancer stage and further treatment if necessary. - Patient understands and agrees with the treatment plan. 3. Preop examination (Z01.818) Patient is in good health with no current maintenance medications for lymphoma and no use of blood thinners. Lungs clear bilaterally, heart sounds normal. - Completed preoperative consent form. - Provided patient with Hibiclens for preoperative skin preparation. - Scheduled CA-125 blood test. - Office will contact patient to finalize surgery date. Frank Vaughn MD The patient consented to the use of [employer] software for draft documentation of the visit consistent with [facility] Notice of Privacy Practices. A letter and a copy of this office note were sent to: - Dr. Gilmore - Sergio Landaverde MD (PCP) Medical Decision Making: Problems: High: Illness/injury w/ threat to life/body function Data: Unique test result(s) reviewed: 1 Unique test(s) ordered: 3+ Risk: High: High risk from testing/treatment and Decision on elective major surgery w/ risk factors Medical Decision Making Level: 5 - High documented in this encounter [facility] 09-22-2024 Note HNO ID: [id number] Author: FRANK VAUGHN MD Service: ? Author Type: Physician Type: Progress Notes Filed: 09/22/2024 18:24 Note Text: DATE OF SERVICE: 09/22/2024 PROBLEM: Josephinecliff Renee is a consult from for evaluation of endometrial cancer. HPI: Ms. Renee is a 59 year old female who has a past medical history of Breast mass, left (2019) and Depression. On 09/26/2019, patient was diagnosed with follicular lymphoma after presenting with abdominal swelling and pain. She was referred to Dr. Hill for management. Recently, she was found to have a uterine polyp and underwent a DANDC, which revealed grade 1 endometrial cancer. She is postmenopausal and has a history of laparoscopic exploratory surgery for infertility, with no findings of endometriosis. She denies current use of maintenance medications for lymphoma and is not on blood thinners. Family history is significant for pancreatic cancer in her father and probable uterine cancer in her mother. She reports having undergone genetic testing at [facility]. 1) History of lymphoma. 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 Diagnosed 07/2021. Rituximab/bendamustine x 6 cycles. 07/2021-01/2022 (near CR) 2) 08/26/2024 DANVA IMAGING: CT CHEST: No results found. CT ABD/PELVIS: No results found. LABS: Tumor Markers CA 125 CEA CA19-9 Latest Ref Rng AND Units <39 U/mL 0.0 - 2.9 ng/mL <36 U/mL 09/22/2024 11 07/18/2021 24 1.3 24 PATHOLOGY: No results found for: FINALDIAGNOS HISTORIES: PAST GYNECOLOGIC HISTORY: OB History Gravida0 Para0 Term0 Preterm0 AB0 Living0 SAB0 IAB0 Ectopic0 Multiple0 Live Births0 LMP: No LMP recorded. Patient is postmenopausal. Hormonal contraceptives: No. HRT use: No. History of abnormal pap: No. Last pap/HPV: 06/30/2019 PAST SURGICAL HISTORY Procedure Laterality Date BX OF BREAST; INCISIONAL Left 2020 needle biopsy PAST SURGICAL HISTORY OF Laproscopic exploratory surgery due to infertility PAST MEDICAL HISTORY Diagnosis Date Breast mass, left 2019 Depression FAMILY HISTORY Problem Relation Age of Onset No Known Problems Mother possible uterine cancer Pancreatic Cancer Father 90 Diabetes Sister Alcohol/Drug Brother other (TMJ) Brother Heart disease Maternal Grandmother No Known Problems Maternal Grandfather No Known Problems Paternal Grandmother Heart disease Paternal Grandfather Bipolar disorder Sister Alcohol/Drug Sister Family history of breast, ovarian, uterine or colon cancer: See above Family history of VTE: No SOCIAL HISTORY Social History Tobacco Use Smoking status: Never Smokeless tobacco: Never Vaping Use Vaping status: Never Used Substance Use Topics Alcohol use: Yes Drug use: Never Occupation: Marital Status: HEALTH MAINTENANCE: Last mammogram: 02/15/2022 Last colonoscopy: 07/09/2019 TRANSFUSION PREFERENCE: Are you willing to receive a blood transfusion/blood products? Yes Diagnostics Reviewed: Pathology -- Dilation and Curettage Pathology: Revealed a grade 1 uterine malignancy. OBJECTIVE: VITALS: BP 135/75 Pulse 69 Temp 37.1 ?C (98.7 ?F) Ht 161.3 cm (5' 3.5") Wt 55 kg (121 lb 4.1 oz) SpO2 100% BMI 21.14 kg/m? GENERAL: Patient is a well developed, well nourished female. She is alert, oriented, pleasant, and cooperative. SKIN: Color, texture, turgor normal. No rashes or lesions. LUNGS: Clear to auscultation bilaterally. HEART: Regular rate and rhythm, no murmurs. ABDOMEN: Abdomen soft, non-tender, no hepatosplenomegaly. PELVIC: Deferred LOWER EXTREMITIES: No pitting edema, no palpable cords, and no skin changes. Chief Catalyst Operator for exam: CLAYTON Ulloa September 22, 2024 1:13 PM ASSESSMENT/PLAN: 59 yo with new diagnosis of grade 1 endometrial cancer. 1. Family history of pancreatic cancer (Z80.0) Patient's father had pancreatic cancer. Discussed potential genetic predisposition and the possibility of genetic testing. - Review previous genetic testing results from [facility]. - Consider ordering comprehensive germline testing post-surgery if previous testing was limited. 2. Endometrial cancer (HCC) (C54.1) Diagnosed with grade 1 endometrial cancer following DANDC. Pathology report indicates estrogen receptor positivity. No evidence of metastasis at this time. Patient is postmenopausal. - Ordered CA-125 blood test to assess risk of metastasis. - Scheduled laparoscopic hysterectomy with bilateral salpingo-oophorectomy and sentinel lymph node biopsy in two weeks. - Discussed surgical procedure, including removal of uterus, cervix, fallopian tubes, ovaries, and sampling of sentinel lymph nodes using ICG dye. - Explained potential risks and benefits of surgery, including minimal risk of lymphedema with sentinel lymph node biopsy. - Informed patient about possible mild hot flashes post-surgery due to removal of ovaries. - Discussed recovery process: outpatient proce (more content not included)... [facility] 09-16-2024 Telephone encounter Note Requested Pathology slides from [facility] ([phone]) are currently @ [facility]. Slides will be sent to [facility] once returned. [facility] Work Phone: 09-16-2024 Miscellaneous Notes Requested Pathology slides from [facility] ([phone]) are currently @ [facility]. Slides will be sent to [facility] once returned. documented in this encounter [facility] 09-15-2024 Telephone encounter Note Received MIRELA from Patient & faxed request for Pathology slides. [facility] Work Phone: 09-15-2024 Miscellaneous Notes Received MIRELA from Patient & faxed request for Pathology slides. documented in this encounter [facility] 09-12-2024 Telephone encounter Note Spoke with Josephine Renee to confirm consult with Dr. Vaughn on 09/22/24. I sent her a release of information to obtain Pathology slides from [facility]- ph.[phone]/fax. [phone] (08/26/24 [id number]). Ultrasound done @ [facility] p. [phone]/fax. [phone]. [facility] Work Phone: 09-12-2024 Miscellaneous Notes Spoke with Josephine Renee to confirm consult with Dr. Vaughn on 09/22/24. I sent her a release of information to obtain Pathology slides from [facility]- ph.[phone]/fax. [phone] (08/26/24 [id number]). Ultrasound done @ [facility] p. [phone]/fax. [phone]. documented in this encounter [facility] 09-05-2024 Telephone encounter Note Received external referral for patient to see Dr. Vaughn. Pt is scheduled 09/22/24. Referral uploaded to scanned documents. Patient referred from [facility] in [place]. [facility] 09-05-2024 Miscellaneous Notes Received external referral for patient to see Dr. Vaughn. Pt is scheduled 09/22/24. Referral uploaded to scanned documents. Patient referred from [facility] in [place]. documented in this encounter [facility] 08-26-2024 History and physical note [facility] 08-26-2024 Discharge summary Note Date/Time August 26, 2024 1:34pm [facility] Medical Records Department [address] [place] [address] Instructions for Home/Discharge Instructions 08/26/24 1332 MR#: [id number] Acct: [id number] Name: JOSEPHINE RENEE Rep #:[id number] : 1965 59 From: Gisel Gilmore DO PCP: Dr. Sergio Landaverde MD Status :[facility] Discharge Instructions Diet Discharge Diet: No restrictions DC O2, CPAP, BIPAP needs Home O2 Discharge instructions: No Dressing / Incision Discharge Activity: Return to Normal Activity, May Shower and May Take a Tub Bath (after 1 week) May resume sexual activity in: 1-2 weeks Weight Bearing Status: Weight bearing as tolerated Lifting Restrictions: none Dressing / Incision Call your doctor if you observe: Fever of 101 or Higher, Using more than 1 pad per hour, Shortness of breath and Uncontrolled pain Follow Up Care Please Follow Up With: Gisel Gilmore DO When: Call [phone] to schedule appointment. Test Results: Test results from this visit will be discussed in further detail at your follow-up appointment, if applicable. Discharge Plan Admission Primary Reason for Your Visit: hysteroscopy dilation and curettage Attending Provider: Gisel Gilmore Primary Care Provider: Sergio Landaverde Instructions Print Language: Djiboutian Discharge Orders/Prescriptions Prescriptions: New oxycodone-acetaminophen [Percocet] 5-325 mg tablet 1 tab PO Q4H PRN (Reason: pain) 7 Days Qty: 5 0RF naproxen 500 mg tablet 500 mg PO BID PRN (Reason: pain) Qty: 15 0RF Continued duloxetine [Cymbalta] 20 mg capsule,delayed release(DR/EC) 20 mg PO DAILY calcium citrate 250 mg calcium tablet 315 mg PO BID zoledronic llxk-attqqonf-vxord [Reclast] 5 mg/100 mL piggyback 1 ea IV .YEARLY Rx Instructions: 1 ea intravenously; once per year vitamin K2 100 mcg capsule 100 mcg PO QDAY magnesium glycinate 100 mg magnesium capsule 200 mg PO DAILY cholecalciferol (vitamin D3) [Vitamin D3] 25 mcg (1,000 unit) Capsule 25 mcg PO DAILY cyanocobalamin (vitamin B-12) 1,000 mcg Lozenge 1,000 mcg PO QODAY omega-3 fatty acids Capsule 260 mg PO BID Referrals / Follow Up: Sergio Landaverde MD [Primary Care Provider] - Disposition Disposition (needs filled in before D/C Order can be placed): Home, Self Care 08/26/24 1334<Electronically signed by Gisel Gilmore DO>Gisel Gilmore DO CC: Dr. Sergio Landaverde MD ~ Signed [facility] Work Phone: 1(858) 603-441403-11-2025 History and physical note Author Gisel Torrez [facility] Note Date/Time August 26, 2024 3:4 7pm [facility] Medical Records Department [address] [place] [address] History & Physical Exam 08/26/24 1328 MR#: [id number] Acct: [id number] Name: JOSEPHINE RENEE Rep #:[id number] : 1965 59 From: Gisel Gilmore DO PCP: Dr. Sergio Landaverde MD Status :[facility] Location: [place] [address] History and Physical Date of Admission: 08/26/24 Intake Vital Signs 07/11/2508:09 07/28/2508:37 07/28/2508:38 Height 5 ft 3 in 5 ft 3 in 5 ft 3 in Weight: 125 lb 6 oz BMI 22.1 BP 144/78 H Intake Visit Reasons: US result/surgical consult many ??? Cytogenetic Technologist Required: No Is patient in pain?: No Allergies Sulfa (Sulfonamide Antibiotics) Allergy (Mild, Verified 07/28/24 09:36) Hives Medications ?Medication ?Instructions ?Recorded ?Confirmed ?Type duloxetine 20 mg capsule,delayed 20 mg PO DAILY 12/26/20 07/28/24 History release (Cymbalta) cholecalciferol (vitamin D3) 25 25 mcg PO DAILY 07/19/21 07/28/24 Histor y mcg (1,000 unit) capsule (Vitamin D3) cyanocobalamin (vitamin B-12) 1,000 mcg PO QODAY 07/19/21 07/28/24 His tory 1,000 mcg lozenges calcium citrate 315 mg PO QDAY 04/30/24 07/28/24 History magnesium glycinate mg PO 04/30/24 07/28/24 History omega-3 fatty acids 260 mg PO BID 04/30/24 07/28/24 History vitamin K2 100 mcg capsule 100 mcg PO QDAY 04/30/24 07/28/24 Histor y zoledronic acid 5 mg/100 mL in ea .Route 04/30/24 07/28/24 History mannitol 5 %-water intravenous piggybck (Reclast) Is last menstrual period known: No Patient : No : No PFSH Medical History Decreased renal function (~12/2021) Breast cyst (~10/23/21) Osteoporosis Wears contact lenses Post-menopausal Cancer Anxiety Alcohol use Shortness of breath on exertion Non-smoker Surgical History History of bunionectomy Hx of exploratory laparotomy Hx of wisdom tooth extraction Family History Grandfather AlcoholismSister AlcoholismMother CVA (cerebral vascular accident) DepressionFather Pancreatic cancer HypertensionSister Diabetes Social History Smoking Status: Never smoker alcohol intake: current alcohol intake frequency: 0-2 drinks per day substance use type: does not use what type of physical activity do you participate in: walking frequency: daily HPI US result/surgical consult many ??? Details: JOSEPHINE RENEE is a 59 year old who presents for follow up ultrasound that shows a polyp structure in the endometrium measuring about 0.5 cm with vascularity. She was noted to have a polyp at the cervical os by her primary doctor so this likely is the same polyp extending upward. She does not want a full D&C, only wants the polyp removed. we discussed what a dilation and curettage is and that it is part of the removal of the polyp. History 0 Elective abortions Hx Para 0 Spontaneous abortions Hx # Term Pregnancies Ectopic pregnancies Hx # Pregnancies Multiple births # of living children 3 ROS Const ROS Unobtainable: All systems reviewed & are unremarkable except as noted in H Resp Resp: Reports system reviewed and no additional complaints, except as documented; Denies cough GI GI: Reports as per HPI Psych Psych: Reports system reviewed and no additional complaints, except as documented Exam Const General: cooperative, healthy appearing, comfortable and no acute distress Resp Effort & Inspection: normal respiratory effort Skin General: no rashes or lesions noted Psych Appearance: grossly normal Speech and Movement: speech and movement normal Coding Level of Care Code Off vis,est,level 4 Diagnoses Polyp of cervix N84.1 Assessment and Plan Assessment and Plan (1) Polyp of cervix: Status: Acute Plan: After discussing the patient's diagnosis and treatment plan options, patient wishes to proceed with surgical management. I have discussed with the patient the risks, benefits, and alternatives of the procedure which include but are notlimited to risks of anesthesia, bleeding, infection, possible damage to bowel, bladder, or surrounding vasculature which could lead to additional surgery to evaluate any complications. Patient agrees to procedure and wishes to proceed. plan for hysteroscopy dilation and curettage, removal of polyp 08/26/24 1328 <Electronically signed by Gisel Gilmore DO> Cosigner Signature (if applicable): CC: Dr. Serigo Landaverde MD; Dr. Gisel Gilmore DO~ Signed [facility] Work Phone: 1(554) 568-403603-11-2025 Consult note [facility] Medical Records Department [address] [place] [address] Anesthesia Postop Eval I 08/26/24 1434 MR#: [id number] Acct: [id number] Name: JOSEPHINE RENEE Rep #:[id number] : 1965 59 From: Klaudia Joseph PCP: Dr. Sergio Landaverde MD Status :[facility] Y Race: C Location: [place] [address] Anesthesia: Postop Eval I Current Vital Signs Temperature: 98.1 F Pulse Rate: 63 Blood Pressure: 108/83 Respiratory Rate: 16 Pulse Ox: 99 Oxygen Delivery Method: Room Air Assessment Airway patent: Yes Spontaneous unlabored respirations: Yes Mental status: Awake and Calm nausea: No Vomiting: No Anesthesia Complication: No Fluid Hydration Crystalloid volume administer (ml): 10 Total IV fluid infused: 10 Progress Note Anesthesia document: Postop Eval 1 completed: Yes 08/26/241434 > Date _ Klaudia Wilcox Signature: Date CC: ~ Signed [facility]03-11-2025 Consult note Author Erick Rachel [facility] Note Date/Time August 26, 2024 12: 33pm [facility] Medical Records Department [address] [place] [address] Pre-Anesthesia Evaluation 08/26/24 1232 MR#: [id number] Acct: [id number] Name: JOSEPHINE RENEE Rep #:[id number] : 1965 59 From: Erick Rachel MD PCP: Dr. Sergio Landaverde MD Status :[facility] Y Race: C Location: [place] [address] ASA Classification* ASA Classification ASA Classification: 2 Assessment & Plan Anesthesia* Anesthesia Assessment Anesthesia Assessment: Discussed sedation and/or anesthesia options, risks, benefits, and alternatives with patient/parents/legal guardian/POA. Questions invited. The patient/parents/legal guardian/POA seems to understand and agrees to proceedwith anesthesia plan. Reviewed the physical assessment, medical history, allergy history and patient home medications list prior to surgery/procedure/anesthetic and documented any changes. Performed airway and anesthesia risk assessments. Anesthesia Type Anesthesia Type: MAC History Source History Obtained from:: Patient and Chart Anesthesia Focused Assessment* Temperature: 98.6 F Pulse Rate: 73 Blood Pressure: 133/81 Respiratory Rate: 16 Pulse Ox: 100 Oxygen Delivery Method: Room Air Airway Assessment Mouth opens: >3 cm Mallampati Score: I Teeth Condition: Intact Neck Range of motion (ROM): Full ROM Focused Labs Anesthesia Preop lab: CBC WBC 5.6 K/mm3 (4.4-11.0) 08/15/24 14:32 08/15/24 RBC 3.84 M/mm3 (4.2-5.4) L 08/15/24 14:32 08/15/24 Hgb 13.1 g/dL (12.0-15.0) 08/15/24 14:32 08/15/24 Hct 39.1 % (37-47) 08/15/24 14:32 08/15/24 Plt Count 300 K/mm3 (150-450) 08/15/24 14:32 08/15/24 CHEMISTRY Potassium 3.5 mmol/L (3.5-5.1) 08/24/23 13:43 08/24/23 Sodium 140 mmol/L (136-145) 08/24/23 13:43 08/24/23 Magnesium 2.3 mg/dL (1.6-2.6) 08/24/23 13:43 08/24/23 BUN 13 mg/dL (7-18) 08/24/23 13:43 08/24/23 Creatinine 0.81 mg/dL (0.55-1.02) 08/24/23 13:43 08/24/23 Glucose 93 mg/dL (74-106) 08/24/23 13:43 08/24/23 TSH 1.57 uIU/mL (0.358-3.74) 08/24/23 13:43 COAG PT 11.9 SECONDS (11.7-14.9) 07/13/21 12:11 Pre-Assessment Diagnosis/Proposed Procedure Planned Operative Procedure(s): D&C POLYPECTOMY Anesthesia History Anesthesia History - bounty trapper: Anesthesia History - bounty trapper Hx Hospitalization No 08/13/24 11:45 Any Problems With Anesthesia No 08/13/24 11:45 Cholinesterase deficiency No 08/13/24 11:45 You/Your Family Experience No 08/13/24 11:45 fever (hyperthermia) with Relationship Recent Exposure to Contagious No 08/26/24 11:46 Disease Does patient have nerve No 08/13/24 11:45 stimulator Patient instructed to have device shut off --Does patient have Pacemaker No 08/26/24 11:46 or ICD? When Was Last Pacemaker Check QUESTION #4 FULL TEXT: You/Your Family Experience fever (hyperthermia) with Anesthesia Any additional information?: No Last Oral Intake Last Oral intake: Last Oral Intake NPO since 08:30 08/26/24 11:46 Meds taken in AM with sips of Yes 08/26/24 11:46 water? Meds patient instructed to Cymbalta 08/26/24 11:46 take am of surgery Any additional information?: No PONV PONV - bounty trapper: PONV - bounty trapper Female Yes 08/13/24 11:45 HX of Motion Sickness No 08/13/24 11:45 HX of N/V After Surgery No 08/13/24 11:45 Non-Smoker Yes 08/13/24 11:45 Duration of Surgery greater No 08/13/24 11:45 than 60 minutes Number of Risk Factors 2 08/13/24 11:45 PONV Score Moderate Risk 08/13/24 11:45 Any additional information?: No Height & Weight Height & Weight: Anesthesia: Height & Weight Height 5 ft 3 in 08/26/24 11:46 Weight: 56 kg 08/26/24 11:46 Body Mass Index (BMI) 21.9 08/26/24 11:46 Respiratory Assessment Respiratory Assessment - bounty trapper: Respiratory Tract Infection Hx - bounty trapper Hx Respiratory Tract Infection No 08/13/24 11:45 Any additional information?: No STOP Sleep Apnea STOP Sleep Apnea - bounty trapper: STOP Sleep Apnea - bounty trapper Hx Hypertension No 08/13/24 11:45 Hx Sleep Apnea No 08/13/24 11:45 CPAP No 07/07/24 10:47 BIPAP No 07/07/24 10:47 Do you snore loudly (louder No 08/13/24 11:45 than talking or can be heard Do you often feel tired/ No 08/13/24 11:45 fatigued/ sleepy during daytime? Has anyone observed you stop No 08/13/24 11:45 breathing during sleep? STOP Results Negative 08/13/24 11:45 QUESTION #5 FULL TEXT : Do you snore loudly (louder than talking or can be heard through closed doors)? 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 Specify any problems Hx of Preganancy in last 3 No 08/13/24 11:45 Months Nurse Filling Out Transfusion DSCHRIBER 08/13/24 11:45 & Questions: Date: 08/13/24 08/13/24 11:45 Time: 11:46 08/13/24 11:45 Patient unable to answer at this time (ie. confused, unrespo Any additional information?: No /Reproduction History /Reproductive History - bounty trapper: /Reproductive Hx- bounty trapper Hx Now No 08/13/24 11:45 Gestational Age (in weeks): EDC: Hx Hx Para Hx Section SAB No 08/13/24 11:45 Any additional information?: No PFSH Medical History History of pain when walking Decreased renal function (~12/2021) Breast cyst (~10/23/21) Osteoporosis Wears contact lenses Post-menopausal Cancer Anxiety Alcohol use Shortness of breath on exertion Non-smoker Home Medications ?Medication ?Instructions ?Recorded ?Last Taken ?Type duloxetine 20 mg capsule,delayed 20 mg PO DAILY 08/26/24 History release (Cymbalta) cholecalciferol (vitamin D3) 25 25 mcg PO DAILY Unknown History mcg (1,000 unit) capsule (Vitamin D3) cyanocobalamin (vitamin B-12) 1,000 mcg PO QODAY 07/19 Unknown History 1,000 mcg lozenges calcium citrate 315 mg PO BID 04/30/24 Unkno wn History magnesium glycinate 200 mg PO DAILY 04/30/24 Unk nown History omega-3 fatty acids 260 mg PO BID 04/30/24 Unkno wn History vitamin K2 100 mcg capsule 100 mcg PO QDAY 04/30/24 Un known History zoledronic acid 5 mg/100 mL in 1 ea IV .YEARLY 4 Unknown History mannitol 5 %-water intravenous piggybck (Reclast) Allergy/AdvReac Type Severity Reaction Status Date / Time Sulfa (Sulfonamide Allergy Mild Hives Verified 08/26/24 11:40 Antibiotics) Family History Grandfather Alcoholism Sister Alcoholism Mother CVA (cerebral vascular accident) Depression Father Pancreatic cancer Hypertension Sister Diabetes Surgical History History of removal of retained hardware History of bunionectomy Hx of exploratory laparotomy Hx of wisdom tooth extraction Social History Smoking Status: Never smoker alcohol intake: current alcohol intake frequency: 0-2 drinks per day substance use type: does not use what type of physical activity do you participate in: walking frequency: daily Review of Systems (Anesthesia) ROS Narrative System reviewed and no additional complaints, except as documented. Physical Exam Const alert, oriented x3 and average body habitus Resp normal respiratory effort, normal air movement and clear to auscultation bilaterally Cardio regular rate, regular rhythm, no murmurs and diaphoretic 08/26/24 1233 <Electronically signed by Erick Rachel MD> Date _ Erick Rachel MD Cosigner Signature: Date CC: ~ Signed [facility] Work Phone: 1(943) 935-848703-11-2025 Procedure note [facility] Medical Records Department [address] [place] [address] Operative Report 08/26/24 1423 MR#: [id number] Acct: [id number] Name: JOSEPHINE RENEE Rep #:[id number] : 1965 59 From: Gisel Gilmore DO PCP: Dr. Sergio Landaverde MD Status :[facility] Location: [place] [address] Problems Associated Problem List Diagnoses (1) Post-menopausal bleeding: Multi Select Codes Urinary/Genital Urinary/Genital CPT Codes: 36452 Hysteroscopic myomectomy Operative Report (Standard) Operative Information Date of Procedure: 08/26/24 Pre-Operative Diagnosis: thickened endometrium concerning for polyp or fibroid, postmenopausal bleeding Post-Operative Diagnosis: thickened endometrium concerning for polyp or fibroid,postmenopausal bleeding Surgery/Procedure Performed: hysteroscopy Dilation and curettage, myomectomy after school counselor: No Type of Anesthesia: MAC and Topical Anesth RN Documented Start/Stop Times: Operation Date: 08/26/24 13:05 Case Time Into Pre-Op 08/26/24 11:34 Out of Pre-Op 08/26/24 13:36 Anesthesia Start 08/26/24 13:39 Into Room 08/26/24 13:39 Procedure Start 08/26/24 13:53 Procedure End 08/26/24 14:21 Procedure Start Time: 13:53 Procedure Stop Time: 14:21 Select all DRAINS/GRAFTS/IMPLANTS that apply: None Estimated Blood Loss: 5cc Specimen collected: Yes Description of specimen(s) removed: endometrial fibroid Description of surgery: Patient was prepped and draped in a normal sterile fashion under MAC anesthesia. A weighted speculum was placed in the vagina and the anterior lip of the cervixwas grasped with a single-tooth tenaculum. A paracervical block was placed with1% lidocaine. Cervix was progressively dilated to allow passage of a 5 mm hysteroscope. The lining was fully visualized and noted to have a posterior uterine fibroid. Uterine sounded to 8 cm. Curettage was performed using the symphion device as well as a myomectomy removing the posterior uterine fibroid. The curetting's and fibroid were sent to pathology. All instruments were removed from the vagina and excellent hemostasis was noted. Patient was awoken and taken to recovery in stable condition. Surgical Findings: posterior uterine fibroid Complications Complications: No Admit VTE Documentation VTE Present on Admission: No VTE Mechan Device Prophylaxis: SCD's VTE Pharm Prophylaxis ordered?: No 08/26/24 1427 Cosigner Signature (if applicable): CC: Dr. Sergio Landaverde MD; Dr. Gisel Gilmore DO~ Signed [facility]03-11-2025 Discharge summary [facility] Medical Records Department [address] [place] [address] Instructions for Home/Discharge Instructions 08/26/24 1332 MR#: [id number] Acct: [id number] Name: JOSEPHINE RENEE Rep #:[id number] : 1965 59 From: Gisel Gilmore DO PCP: Dr. Sergio Landaverde MD Status :REG [facility] Discharge Instructions Diet Discharge Diet: No restrictions DC O2, CPAP, BIPAP needs Home O2 Discharge instructions: No Dressing / Incision Discharge Activity: Return to Normal Activity, May Shower and May Take a Tub Bath (after 1 week) May resume sexual activity in: 1-2 weeks Weight Bearing Status: Weight bearing as tolerated Lifting Restrictions: none Dressing / Incision Call your doctor if you observe: Fever of 101 or Higher, Using more than 1 pad per hour, Shortness of breath and Uncontrolled pain Follow Up Care Please Follow Up With: Gisel Gilmore DO When: Call [phone] to schedule appointment. Test Results: Test results from this visit will be discussed in further detail at your follow- up appointment, if applicable. Discharge Plan Admission Primary Reason for Your Visit: hysteroscopy dilation and curettage Attending Provider: Gisel Gilmore Primary Care Provider: Sergio Landaverde Instructions Print Language: Djiboutian Discharge Orders/Prescriptions Prescriptions: New oxycodone-acetaminophen [Percocet] 5-325 mg tablet 1 tab PO Q4H PRN (Reason: pain) 7 Days Qty: 5 0RF naproxen 500 mg tablet 500 mg PO BID PRN (Reason: pain) Qty: 15 0RF Continued duloxetine [Cymbalta] 20 mg capsule,delayed release(DR/EC) 20 mg PO DAILY calcium citrate 250 mg calcium tablet 315 mg PO BID zoledronic [id number] [Reclast] 5 mg/100 mL piggyback 1 ea IV .YEARLY Rx Instructions: 1 ea intravenously; once per year vitamin K2 100 mcg capsule 100 mcg PO QDAY magnesium glycinate 100 mg magnesium capsule 200 mg PO DAILY cholecalciferol (vitamin D3) [Vitamin D3] 25 mcg (1,000 unit) Capsule 25 mcg PO DAILY cyanocobalamin (vitamin B-12) 1,000 mcg Lozenge 1,000 mcg PO QODAY omega-3 fatty acids Capsule 260 mg PO BID Referrals / Follow Up: Sergio Landaverde MD [Primary Care Provider] - Disposition Disposition (needs filled in before D/C Order can be placed): Home, Self Care 08/26/24 1334Jennifer Derrick Torrez DO CC: Dr. Sergio Landaverde MD ~ Signed [facility]03-11-2025 [facility] Medical Records Department [address] [place] [address] History Physical Exam 08/26/24 1328 MR#: [id number] Acct: [id number] Name: VÍCTORJOSEPHINE BEARDEN Rep #: [id number] : 1965 59 From: Gisel Gilmore DO PCP: Dr. Sergio Landaverde MD Status:[facility] Location: [place] [address] History and Physical Date of Admission: 08/26/24 Intake Vital Signs 07/11/2508:09 07/28/2508:37 07/28/2508:38 Height 5 ft 3 in 5 ft 3 in 5 ft 3 in Weight: 125 lb 6 oz BMI 22.1 BP 144/78 H Intake Visit Reasons: US result/surgical consult many ??? Cytogenetic Technologist Required: No Is patient in pain?: No Allergies Sulfa (Sulfonamide Antibiotics) Allergy (Mild, Verified 07/28/24 09:36) Hives Medications ???Medication ???Instructions ???Recorded ???Confirmed ???Type duloxetine 20 mg capsule,delayed 20 mg PO DAILY 12/26/20 07/28/24 History release (Cymbalta) cholecalciferol (vitamin D3) 25 25 mcg PO DAILY 07/19/21 07/28/24 History mcg (1,000 unit) capsule (Vitamin D3) cyanocobalamin (vitamin B-12) 1,000 mcg PO QODAY 07/19/21 07/28/24 History 1,000 mcg lozenges calcium citrate 315 mg PO QDAY 04/30/24 07/28/24 History magnesium glycinate mg PO 04/30/24 07/28/24 History omega-3 fatty acids 260 mg PO BID 04/30/24 07/28/24 History vitamin K2 100 mcg capsule 100 mcg PO QDAY 04/30/24 07/28/24 History zoledronic acid 5 mg/100 mL in ea .Route 04/30/24 07/28/24 History mannitol 5 %-water intravenous piggybck (Reclast) Is last menstrual period known: No Patient : No : No PFSH Medical History Decreased renal function ( 12/2021) Breast cyst ( 10/23/21) Osteoporosis Wears contact lenses Post-menopausal Cancer Anxiety Alcohol use Shortness of breath on exertion Non-smoker Surgical History History of bunionectomy Hx of exploratory laparotomy Hx of wisdom tooth extraction Family History Grandfather AlcoholismSister AlcoholismMother CVA (cerebral vascular accident) DepressionFather Pancreatic cancer HypertensionSister Diabetes Social History Smoking Status: Never smoker alcohol intake: current alcohol intake frequency: 0-2 drinks per day substance use type: does not use what type of physical activity do you participate in: walking frequency: daily HPI US result/surgical consult many ??? Details: JOSEPHINE RENEE is a 59 year old who presents for follow up ultrasound that shows a polyp structure in the endometrium measuring about 0.5 cm with vascularity. She was noted to have a polyp at the cervical os by her primary doctor so this likely is the same polyp extending upward. She does not want a full D C, only wants the polyp removed. we discussed what a dilation and curettage is and that it is part of the removal of the polyp. History 0 Elective abortions Hx Para 0 Spontaneous abortions Hx # Term Pregnancies Ectopic pregnancies Hx # Pregnancies Multiple births # of living children 3 ROS Const ROS Unobtainable: All systems reviewed are unremarkable except as noted in H Resp Resp: Reports system reviewed and no additional complaints, except as documented; Denies cough GI GI: Reports as per HPI Psych Psych: Reports system reviewed and no additional complaints, except as documented Exam Const General: cooperative, healthy appearing, comfortable and no acute distress Resp Effort Inspection: normal respiratory effort Skin General: no rashes or lesions noted Psych Appearance: grossly normal Speech and Movement: speech and movement normal Coding Level of Care Code Off vis,est,level 4 Diagnoses Polyp of cervix N84.1 Assessment and Plan Assessment and Plan (1) Polyp of cervix: Status: Acute Plan: After discussing the patient's diagnosis and treatment plan options, patient wishes to proceed with surgical management. I have discussed with the patient the risks, benefits, and alternatives of the procedure which include but are not limited to risks of anesthesia, bleeding, infection, possible damage to bowel, bladder, or surrounding vasculature which could lead to additional surgery to evaluate any complications. Patient agrees to procedure and wishes to proceed. plan for hysteroscopy dilation and curettage, removal of polyp 08/26/24 1328 Cosigner Signature (if applicable): CC: Dr. Sergio Landaverde MD; Dr. Gisel Gilmore DO [facility] Consult note [facility] Medical Records Department [address] [place] [address] Pre-Anesthesia Evaluation 08/26/24 1232 MR#: [id number] Acct: [id number] Name: JOSEPHINE RENEE Rep #:[id number] : 1965 59 From: Erick Rachel MD PCP: Dr. Sergio Landaverde MD Status :REG SDC Y Race: C Location: [place] [address]- ASA Classification* ASA Classification ASA Classification: 2 Assessment & Plan Anesthesia* Anesthesia Assessment Anesthesia Assessment: Discussed sedation and/or anesthesia options, risks, benefits, and alternatives with patient/parents/legal guardian/POA. Questions invited. The patient/parents/legal guardian/POA seems to understand and agrees to proceedwith anesthesia plan. Reviewed the physical assessment, medical history, allergy history and patient home medications list prior to surgery/procedure/anesthetic and documented any changes. Performed airway and anesthesia risk assessments. Anesthesia Type Anesthesia Type: MAC History Source History Obtained from:: Patient and Chart Anesthesia Focused Assessment* Temperature: 98.6 F Pulse Rate: 73 Blood Pressure: 133/81 Respiratory Rate: 16 Pulse Ox: 100 Oxygen Delivery Method: Room Air Airway Assessment Mouth opens: >3 cm Mallampati Score: I Teeth Condition: Intact Neck Range of motion (ROM): Full ROM Focused Labs Anesthesia Preop lab: CBC WBC 5.6 K/mm3 (4.4-11.0) 08/15/24 14:32 08/15/24 RBC 3.84 M/mm3 (4.2-5.4) L 08/15/24 14:32 08/15/24 Hgb 13.1 g/dL (12.0-15.0) 08/15/24 14:32 08/15/24 Hct 39.1 % (37-47) 08/15/24 14:32 08/15/24 Plt Count 300 K/mm3 (150-450) 08/15/24 14:32 08/15/24 CHEMISTRY Potassium 3.5 mmol/L (3.5-5.1) 08/24/23 13:43 08/24/23 Sodium 140 mmol/L (136-145) 08/24/23 13:43 08/24/23 Magnesium 2.3 mg/dL (1.6-2.6) 08/24/23 13:43 08/24/23 BUN 13 mg/dL (7-18) 08/24/23 13:43 08/24/23 Creatinine 0.81 mg/dL (0.55-1.02) 08/24/23 13:43 08/24/23 Glucose 93 mg/dL (74-106) 08/24/23 13:43 08/24/23 TSH 1.57 uIU/mL (0.358-3.74) 08/24/23 13:43 COAG PT 11.9 SECONDS (11.7-14.9) 07/13/21 12:11 Pre-Assessment Diagnosis/Proposed Procedure Planned Operative Procedure(s): D&C POLYPECTOMY Anesthesia History Anesthesia History - bounty trapper: Anesthesia History - bounty trapper Hx Hospitalization No 08/13/24 11:45 Any Problems With Anesthesia No 08/13/24 11:45 Cholinesterase deficiency No 08/13/24 11:45 You/Your Family Experience No 08/13/24 11:45 fever (hyperthermia) with Relationship Recent Exposure to Contagious No 08/26/24 11:46 Disease Does patient have nerve No 08/13/24 11:45 stimulator Patient instructed to have device shut off --Does patient have Pacemaker No 08/26/24 11:46 or ICD? When Was Last Pacemaker Check QUESTION #4 FULL TEXT: You/Your Family Experience fever (hyperthermia) with Anesthesia Any additional information?: No Last Oral Intake Last Oral intake: Last Oral Intake NPO since 08:30 08/26/24 11:46 Meds taken in AM with sips of Yes 08/26/24 11:46 water? Meds patient instructed to Cymbalta 08/26/24 11:46 take am of surgery Any additional information?: No PONV PONV - bounty trapper: PONV - bounty trapper Female Yes 08/13/24 11:45 HX of Motion Sickness No 08/13/24 11:45 HX of N/V After Surgery No 08/13/24 11:45 Non-Smoker Yes 08/13/24 11:45 Duration of Surgery greater No 08/13/24 11:45 than 60 minutes Number of Risk Factors 2 08/13/24 11:45 PONV Score Moderate Risk 08/13/24 11:45 Any additional information?: No Height & Weight Height & Weight: Anesthesia: Height & Weight Height 5 ft 3 in 08/26/24 11:46 Weight: 56 kg 08/26/24 11:46 Body Mass Index (BMI) 21.9 08/26/24 11:46 Respiratory Assessment Respiratory Assessment - bounty trapper: Respiratory Tract Infection Hx - bounty trapper Hx Respiratory Tract Infection No 08/13/24 11:45 Any additional information?: No STOP Sleep Apnea STOP Sleep Apnea - bounty trapper: STOP Sleep Apnea - bounty trapper Hx Hypertension No 08/13/24 11:45 Hx Sleep Apnea No 08/13/24 11:45 CPAP No 07/07/24 10:47 BIPAP No 07/07/24 10:47 Do you snore loudly (louder No 08/13/24 11:45 than talking or can be heard Do you often feel tired/ No 08/13/24 11:45 fatigued/ sleepy during daytime? Has anyone observed you stop No 08/13/24 11:45 breathing during sleep? STOP Results Negative 08/13/24 11:45 QUESTION #5 FULL TEXT : Do you snore loudly (louder than talking or can be heard through closeddoors)? 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 Specify any problems Hx of Preganancy in last 3 No 08/13/24 11:45 Months Nurse Filling Out Transfusion DSCHRIBER 08/13/24 11:45 & Questions: Date: 08/13/24 08/13/24 11:45 Time: 11:46 08/13/24 11:45 Patient unable to answer at this time (ie. confused, unrespo Any additional information?: No /Reproduction History /Reproductive History - bounty trapper: /Reproductive Hx- bounty trapper Hx Now No 08/13/24 11:45 Gestational Age (in weeks): EDC: Hx Hx Para Hx Section SAB No 08/13/24 11:45 Any additional information?: No PFSH Medical History History of pain when walking Decreased renal function (~12/2021) Breast cyst (~10/23/21) Osteoporosis Wears contact lenses Post-menopausal Cancer Anxiety Alcohol use Shortness of breath on exertion Non-smoker Home Medications ?Medication ?Instructions ?Recorded ?Last Taken ?Type duloxetine 20 mg capsule,delayed 20 mg PO DAILY 08/26/24 History release (Cymbalta) cholecalciferol (vitamin D3) 25 25 mcg PO DAILY Unknown History mcg (1,000 unit) capsule (Vitamin D3) cyanocobalamin (vitamin B-12) 1,000 mcg PO QODAY 07/19 Unknown History 1,000 mcg lozenges calcium citrate 315 mg PO BID 04/30/24 Unkno wn History magnesium glycinate 200 mg PO DAILY 04/30/24 Unk nown History omega-3 fatty acids 260 mg PO BID 04/30/24 Unkno wn History vitamin K2 100 mcg capsule 100 mcg PO QDAY 04/30/24 Un known History zoledronic acid 5 mg/100 mL in 1 ea IV .YEARLY 4 Unknown History mannitol 5 %-water intravenous piggybck (Reclast) Allergy/AdvReac Type Severity Reaction Status Date / Time Sulfa (Sulfonamide Allergy Mild Hives Verified 08/26/24 11:40 Antibiotics) Family History Grandfather Alcoholism Sister Alcoholism Mother CVA (cerebral vascular accident) Depression Father Pancreatic cancer Hypertension Sister Diabetes Surgical History History of removal of retained hardware History of bunionectomy Hx of exploratory laparotomy Hx of wisdom tooth extraction Social History Smoking Status: Never smoker alcohol intake: current alcohol intake frequency: 0-2 drinks per day substance use type: does not use what type of physical activity do you participate in: walking frequency: daily Review of Systems (Anesthesia) ROS Narrative System reviewed and no additional complaints, except as documented. Physical Exam Const alert, oriented x3 and average body habitus Resp normal respiratory effort, normal air movement and clear to auscultation bilaterally Cardio regular rate, regular rhythm, no murmurs and diaphoretic 08/26/24 1233 MD> Date _ Erick Rachel MD Cosigner Signature: Date CC: ~ Signed [facility]01-20-2025 Evaluation note* Diagnosis Onset Date Resolution Status Admit Date Polyp of cervix acute June 192024 7:55am Post-menopausal bleeding acute July 07, 2024 7:55am Vaginal atrophy acute June 192024 7:55am Encounter for routine gynecological examination noneactive 2024 7:55am Polyp of cervix acute June 192024 8:59am Polyp of cervix acute July 28, 2024 9:27am Post-menopausal bleeding acute August 26, 2024 11:25am [facility] Work Phone: 1(200) 908-476001-20-2025 NotePap Smear Specimen AdequacyJanuary 2024 9:30amComment.Satisfactory for evaluation. Endocervical component may not bedistinguished in cases of atrophy.[facility] INTER[facility]ACED A#[id number] Rutan HospitalComment on above:Satisfactory for evaluation. Endocervical component may not bedistinguished in cases of atrophy.07-07-2024 NotePap Smear Specimen AdequacyJanuary 2024 9:30amComment.Satisfactory for evaluation. Endocervical component may not bedistinguished in cases of atrophy.[facility] INTER[facility]ACED A#[id number] Rutan HospitalComment on above:Satisfactory for evaluation. Endocervical component may not bedistinguished in cases of atrophy. 07-02-2024 NoteHNO ID: [id number] Author: KARO HILL MD Service: ? Author Type: Physician Type: Progress Notes Filed: 07/02/2024 16:09 Note Text: 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 INTERIM HISTORY: Nursing notes reviewed; agree with findings as documented. Ms. Renee returns for follow up. History of Present Illness The patient presents for a follow-up for follicular lymphoma. She reports no new health concerns since her last visit in 12/2023. She feels good with no unusual swelling, aches, pains, or night sweats. She has been on a long-term antidepressant regimen and believes her energy and motivation levels have decreased since her diagnosis. She attributes her persistent fatigue to menopause or decreased physical activity, which she plans to resume after foot surgery. She is currently supplementing with vitamin B12 due to her vegetarian diet. Her primary care physician recently conducted a normal thyroid test, but her B12 levels were not assessed. Supplemental Information She has a black eye from a minor fall while hiking in a cave during a vacation in [facility] [place]. MEDICATIONS: Per [employer]. REVIEW OF SYSTEMS: As described above. ECOG PS = 0. Physical Exam General Appearance: Well-appearing, in no distress. Vital signs: Within normal limits. HEENT: Normocephalic. Extraocular movements intact, sclerae anicteric. The oropharynx is clear. Respiratory: Lungs auscultated. Cardiovascular: Heart sounds regular, no murmur. Abdomen: Soft, nontender, without distension, mass, or organomegaly. Lymphatic: No cervical, axillary, or inguinal lymphadenopathy. Musculoskeletal: No spinal tenderness to palpation. Extremities: No peripheral edema. Skin: Warm and dry, no rash. DIAGNOSTIC STUDIES: Latest Ref Rng AND Units 07/04/2023 12/31/2023 07/02/2024 CBC WBC 3.70 - 11.00 k/uL 3.71 4.65 4.71 RBC 3.90 - 5.20 m/uL 4.15 3.93 4.12 Hemoglobin 11.5 - 15.5 g/dL 13.0 12.9 13.7 Hematocrit 36.0 - 46.0 % 41.3 39.7 42.0 MCV 80.0 - 100.0 fL 99.5 101.0 101.9 MCH 26.0 - 34.0 pg 31.3 32.8 33.3 MCHC 30.5 - 36.0 g/dL 31.5 32.5 32.6 RDW-CV 11.5 - 15.0 % 12.5 12.8 12.0 Platelet Count 150 - 400 k/uL 345 387 351 MPV 9.0 - 12.7 fL 9.9 9.9 9.4 Baso% % 0.8 0.6 0.8 Abs Neut (ANC) 1.45 - 7.50 k/uL 2.01 2.88 2.51 Abs Lymph 1.00 - 4.00 k/uL 1.16 1.18 1.58 Abs [place] <0.87 k/uL 0.48 0.49 0.50 Abs Eosin <0.46 k/uL <0.03 0.06 0.06 Abs Baso <0.11 k/uL 0.03 0.03 0.04 NRBC /100 WBC 0.0 0.0 0.0 Latest Ref Rng AND Units 07/04/2023 12/31/2023 07/02/2024 CMP Sodium 136 - 144 mmol/L 143 139 143 Potassium 3.7 - 5.1 mmol/L 5.2 4.8 4.0 Chloride 98 - 107 mmol/L 105 103 105 CO2 22 - 30 mmol/L 28 26 29 Glucose 74 - 99 mg/dL 94 79 86 BUN 7 - 21 mg/dL 12 17 14 Creatinine 0.58 - 0.96 mg/dL 0.79 0.86 0.73 EGFR >=60 mL/min/1.73m? 86 77 94 Protein, Total 6.3 - 8.0 g/dL 7.7 6.8 7.7 Albumin 3.9 - 4.9 g/dL 4.6 4.3 4.6 Calcium 8.5 - 10.2 mg/dL 10.4 9.7 9.7 Bilirubin, Total 0.2 - 1.3 mg/dL 0.4 0.2 0.4 AST 13 - 35 U/L 18 18 21 ALT 7 - 38 U/L 13 12 16 Alkaline Phosphatase 34 - 123 U/L 113 100 85 LD Date Value Ref Range Status 07/02/2024 180 135 - 214 U/L Final Assessment AND Plan 1. Follicular lymphoma in clinical remission - Last CT in 12/2023, 2 years post-treatment - Repeat CT in summer 2025 unless clinically indicated - Next checkup to include labs and office visit 2. Mild macrocytosis without anemia - Noted on CBC today and intermittently prior - Slight fatigue and macrocytosis may indicate mild B12 deficiency - B12 level to be added to today's labs - If low, increase dose to improve symptoms Follow-up in 6 months Medical Decision Making: Problems: Minimal: Self-limited or minor problem Low: Stable chronic illness Data: Unique test result(s) reviewed: 3+ Unique test(s) ordered: 3+ Risk: Low: Low risk from testing/treatment Medical Decision Making Level: 3 - Low Karo Hill MD cc: Sergio Landaverde MD; ; [facility]01-15-2025 History of Present illness Narrative* Karo Hill MD - 07/02/2024 11:39 AM EST Images from the original note were not included. 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 INTERIM HISTORY: Nursing notes reviewed; agree with findings as documented. Ms. Renee returns for follow up. History of Present Illness The patient presents for a follow-up for follicular lymphoma. She reports no new health concerns since her last visit in 12/2023. She feels good with no unusual swelling, aches, pains, or night sweats. She has been on a long-term antidepressant regimen and believes her energy and motivation levels have decreased since her diagnosis. She attributes her persistent fatigue to menopause or decreased physical activity, which she plans to resume after foot surgery. She is currently supplementing with vitamin B12 due to her vegetarian diet. Her primary care physician recently conducted a normal thyroid test, but her B12 levels were not assessed. Supplemental Information She has a black eye from a minor fall while hiking in a cave during a vacation in [facility] [place]. MEDICATIONS: Per [employer]. REVIEW OF SYSTEMS: As described above. ECOG PS = 0. Physical Exam General Appearance: Well-appearing, in no distress. Vital signs: Within normal limits. HEENT: Normocephalic. Extraocular movements intact, sclerae anicteric. The oropharynx is clear. Respiratory: Lungs auscultated. Cardiovascular: Heart sounds regular, no murmur. Abdomen: Soft, nontender, without distension, mass, or organomegaly. Lymphatic: No cervical, axillary, or inguinal lymphadenopathy. Musculoskeletal: No spinal tenderness to palpation. Extremities: No peripheral edema. Skin: Warm and dry, no rash. DIAGNOSTIC STUDIES: Latest Ref Rng & Units 07/04/2023 12/31/2023 07/02/2024 CBC WBC 3.70 - 11.00 k/uL 3.71 4.65 4.71 RBC 3.90 - 5.20 m/uL 4.15 3.93 4.12 Hemoglobin 11.5 - 15.5 g/dL 13.0 12.9 13.7 Hematocrit 36.0 - 46.0 % 41.3 39.7 42.0 MCV 80.0 - 100.0 fL 99.5 101.0 101.9 MCH 26.0 - 34.0 pg 31.3 32.8 33.3 MCHC 30.5 - 36.0 g/dL 31.5 32.5 32.6 RDW-CV 11.5 - 15.0 % 12.5 12.8 12.0 Platelet Count 150 - 400 k/uL 345 387 351 MPV 9.0 - 12.7 fL 9.9 9.9 9.4 Baso% % 0.8 0.6 0.8 Abs Neut (ANC) 1.45 - 7.50 k/uL 2.01 2.88 2.51 Abs Lymph 1.00 - 4.00 k/uL 1.16 1.18 1.58 Abs [place] <0.87 k/uL 0.48 0.49 0.50 Abs Eosin <0.46 k/uL <0.03 0.06 0.06 Abs Baso <0.11 k/uL 0.03 0.03 0.04 NRBC /100 WBC 0.0 0.0 0.0 Latest Ref Rng & Units 07/04/2023 12/31/2023 07/02/2024 CMP Sodium 136 - 144 mmol/L 143 139 143 Potassium 3.7 - 5.1 mmol/L 5.2 4.8 4.0 Chloride 98 - 107 mmol/L 105 103 105 CO2 22 - 30 mmol/L 28 26 29 Glucose 74 - 99 mg/dL 94 79 86 BUN 7 - 21 mg/dL 12 17 14 Creatinine 0.58 - 0.96 mg/dL 0.79 0.86 0.73 EGFR >=60 mL/min/1.73m 86 77 94 Protein, Total 6.3 - 8.0 g/dL 7.7 6.8 7.7 Albumin 3.9 - 4.9 g/dL 4.6 4.3 4.6 Calcium 8.5 - 10.2 mg/dL 10.4 9.7 9.7 Bilirubin, Total 0.2 - 1.3 mg/dL 0.4 0.2 0.4 AST 13 - 35 U/L 18 18 21 ALT 7 - 38 U/L 13 12 16 Alkaline Phosphatase 34 - 123 U/L 113 100 85 LD Date Value Ref Range Status 07/02/2024 180 135 - 214 U/L Final Assessment & Plan 1. Follicular lymphoma in clinical remission - Last CT in 12/2023, 2 years post-treatment - Repeat CT in summer 2025 unless clinically indicated - Next checkup to include labs and office visit 2. Mild macrocytosis without anemia - Noted on CBC today and intermittently prior - Slight fatigue and macrocytosis may indicate mild B12 deficiency - B12 level to be added to today's labs - If low, increase dose to improve symptoms Follow-up in 6 months Medical Decision Making: Problems: Minimal: Self-limited or minor problem Low: Stable chronic illness Data: Unique test result(s) reviewed: 3+ Unique test(s) ordered: 3+ Risk: Low: Low risk from testing/treatment Medical Decision Making Level: 3 - Low Karo Hill MD cc: Sergio Landaverde MD; ; * Sary Cheema LPN - 07/02/2024 11:12 AM EST Additional intake questions: Has the patient had fever, nausea, vomiting, diarrhea, constipation, fatigue for > 1 week? No Does the patient have a decreased appetite? No Does patient want to see a Electrical Cad Designer? No (yes to any of above refer patient to schedulers for dietitian appointment) ) Does patient have any new or increased numbness or tingling of extremities? Yes, Left arm Is patient interested in fertility information? No Does patient need any prescription refills? No Does patient have an advanced directive in place? No, Patient refused referral to Social Work or Resource Center [facility] NoteHNO ID: [id number] Author: SARY CHEEMA LPN Service: ? Author Type: LICENSED NURSE Type: Progress Notes Filed: 07/02/2024 11:13 Note Text: Additional intake questions: Has the patient had fever, nausea, vomiting, diarrhea, constipation, fatigue for > 1 week? No Does the patient have a decreased appetite? No Does patient want to see a Electrical Cad Designer? No (yes to any of above refer patient to schedulers for dietitian appointment) ) Does patient have any new or increased numbness or tingling of extremities? Yes, Left arm Is patient interested in fertility information? No Does patient need any prescription refills? No Does patient have an advanced directive in place? No, Patient refused referral to Social Work or Resource Center Electronically Signed By: [facility] Nurse Note* Ro Haas OCCA - 01/02/2024 1:33 PM EDT Additional intake questions: Has the patient had fever, nausea, vomiting, diarrhea, constipation, fatigue for > 1 week? Yes, fatigue and Provider Notified Does the patient have a decreased appetite? No Does patient want to see a Electrical Cad Designer? No (yes to any of above refer patient to schedulers for dietitian appointment) ) Does patient have any new or increased numbness or tingling of extremities? No Is patient interested in fertility information? No Does patient need any prescription refills? No Does patient have an advanced directive in place? Yes, no copy found in [employer] [facility]07-17-2024 Nurse Note* Ro Haas OCCA - 01/02/2024 1:33 PM EDT Additional intake questions: Has the patient had fever, nausea, vomiting, diarrhea, constipation, fatigue for > 1 week? Yes, fatigue and Provider Notified Does the patient have a decreased appetite? No Does patient want to see a Electrical Cad Designer? No (yes to any of above refer patient to schedulers for dietitian appointment) ) Does patient have any new or increased numbness or tingling of extremities? No Is patient interested in fertility information? No Does patient need any prescription refills? No Does patient have an advanced directive in place? Yes, no copy found in [employer] documented in [facility] encounterBl[facility] History of Present illness Narrative* Sergio Plascencia PA-C - 01/02/2024 1:30 PM EDT Images from the original note were not included. [facility] CLINICAL NOTE Department of Hematology and Medical Oncology [id number] ATTENDING PHYSICIAN: Karo Hill MD DATE OF SERVICE: 01/02/2024 LYMPHOMA CLINIC FOLLOWUP DIAGNOSIS: Stage III, grade 1-2 follicular lymphoma diagnosed 07/2021, status post rituximab and bendamustine x 6 cycles from 07/2021-01/2022 (near-CR). INTERIM HISTORY: Ms. Renee returns for follow up. She feels well with no symptoms or concerns today. Notes fatigue present that pre-dated lymphoma dx and treatment by 2-3 years, was present during chemo and has persisted post chemo despite good sleep habits and no other discernable cause. No fevers/chills, night sweats, LAD, MCFADDEN, dizziness/lightheadedness, CP, dyspnea/SOB, abdominal pain, n/v, changes in bowel/bladder function, bleeding/bruising, skin changes/rashes, or edema MEDICATIONS: Per [employer]. REVIEW OF SYSTEMS: As described above. ECOG PS = 0. PHYSICAL EXAMINATION: VITAL SIGNS: BP 125/68 Pulse 63 Temp 36.9 C (98.5 F) (Temporal) Resp 18 Wt 55.1 kg (121 lb 7.6 oz) SpO2 100% BMI 21.00 kg/m GENERAL: well-appearing middle-aged woman in no acute distress. HEAD, EYES, EARS, NOSE, AND THROAT: Normocephalic, atraumatic. Extraocular movements intact, sclerae anicteric. The oropharynx is clear. NECK: Supple, no lymphadenopathy or masses. CHEST: Clear to auscultation. No rales, wheezes, or rhonchi. CARDIAC: Regular rate and rhythm, normal S1 and S2. No murmurs. EXTREMITIES: Warm, no edema. MUSCULOSKELETAL: No spinal tenderness to palpation. No obvious deformity. SKIN: No rash or suspicious lesions. DIAGNOSTIC STUDIES: Latest Ref Rng & Units 01/03/2023 07/04/2023 12/31/2023 CBC WBC 3.70 - 11.00 k/uL 3.14 3.71 4.65 RBC 3.90 - 5.20 m/uL 3.90 4.15 3.93 Hemoglobin 11.5 - 15.5 g/dL 12.4 13.0 12.9 Hematocrit 36.0 - 46.0 % 37.9 41.3 39.7 MCV 80.0 - 100.0 fL 97.2 99.5 101.0 MCH 26.0 - 34.0 pg 31.8 31.3 32.8 MCHC 30.5 - 36.0 g/dL 32.7 31.5 32.5 RDW-CV 11.5 - 15.0 % 12.6 12.5 12.8 Platelet Count 150 - 400 k/uL 353 345 387 MPV 9.0 - 12.7 fL 9.4 9.9 9.9 Baso% % 1.0 0.8 0.6 Abs Neut (ANC) 1.45 - 7.50 k/uL 1.63 2.01 2.88 Abs Lymph 1.00 - 4.00 k/uL 0.92 1.16 1.18 Abs [place] <0.87 k/uL 0.50 0.48 0.49 Abs Eosin <0.46 k/uL 0.05 <0.03 0.06 Abs Baso <0.11 k/uL 0.03 0.03 0.03 NRBC /100 WBC 0.0 0.0 0.0 Latest Ref Rng & Units 01/03/2023 07/04/2023 12/31/2023 CMP Sodium 136 - 144 mmol/L 145 143 139 Potassium 3.7 - 5.1 mmol/L 4.8 5.2 4.8 Chloride 98 - 107 mmol/L 106 105 103 CO2 22 - 30 mmol/L 28 28 26 Glucose 74 - 99 mg/dL 93 94 79 BUN 7 - 21 mg/dL 13 12 17 Creatinine 0.58 - 0.96 mg/dL 0.74 0.79 0.86 EGFR >=60 mL/min/1.73m 93 86 77 Protein, Total 6.3 - 8.0 g/dL 7.5 7.7 6.8 Albumin 3.9 - 4.9 g/dL 4.6 4.6 4.3 Calcium 8.5 - 10.2 mg/dL 10.1 10.4 9.7 Bilirubin, Total 0.2 - 1.3 mg/dL 0.4 0.4 0.2 AST 13 - 35 U/L 20 18 18 ALT 7 - 38 U/L 12 13 12 Alkaline Phosphatase 34 - 123 U/L 128 113 100 Latest Ref Rng 12/31/2023 LD 135 - 214 U/L 163 IMPRESSION AND PLAN: 1. Follicular lymphoma: Surveillance CT scans performed yesterday, radiology report is pending but on my review the images appear quite similar to 08/2022 scans consistent with continued CR, but will follow radiology results when available. 2. IV access: Peripheral IV access is marginal; anticipate that a port will be needed for further treatment in the future. I spent approximately 20 minutes in the visit including review of history/test results and preparing/completing documentation with more than 50% of the total [id number] time of the visit in counseling / coordination of care Sergio Plascencia PA-C cc: Sergio Landaverde MD; ; documented in this encounterBl[facility]07[facility] NoteHNO ID: [id number] Author: SERGIO PLASCENCIA PA-C Service: ? Author Type: Physician Gas Brazer Type: Progress Notes Filed: 01/02/2024 13:56 Note Text: [facility] CLINICAL NOTE Department of Hematology and Medical Oncology PATIENT NAME: Josephine Renee [facility] NO.: [id number] ATTENDING PHYSICIAN: Karo Hill MD DATE OF SERVICE: 01/02/2024 LYMPHOMA CLINIC FOLLOWUP DIAGNOSIS: Stage III, grade 1-2 follicular lymphoma diagnosed 07/2021, status post rituximab and bendamustine x 6 cycles from 07/2021-01/2022 (near-CR). INTERIM HISTORY: Ms. Renee returns for follow up. She feels well with no symptoms or concerns today. Notes fatigue present that pre-dated lymphoma dx and treatment by 2-3 years, was present during chemo and has persisted post chemo despite good sleep habits and no other discernable cause. No fevers/chills, night sweats, LAD, MCFADDEN, dizziness/lightheadedness, CP, dyspnea/SOB, abdominal pain, n/v, changes in bowel/bladder function, bleeding/bruising, skin changes/rashes, or edema MEDICATIONS: Per [employer]. REVIEW OF SYSTEMS: As described above. ECOG PS = 0. PHYSICAL EXAMINATION: VITAL SIGNS: BP 125/68 Pulse 63 Temp 36.9 ?C (98.5 ?F) (Temporal) Resp 18 Wt 55.1 kg (121 lb 7.6 oz) SpO2 100% BMI 21.00 kg/m? GENERAL: well-appearing middle-aged woman in no acute distress. HEAD, EYES, EARS, NOSE, AND THROAT: Normocephalic, atraumatic. Extraocular movements intact, sclerae anicteric. The oropharynx is clear. NECK: Supple, no lymphadenopathy or masses. CHEST: Clear to auscultation. No rales, wheezes, or rhonchi. CARDIAC: Regular rate and rhythm, normal S1 and S2. No murmurs. EXTREMITIES: Warm, no edema. MUSCULOSKELETAL: No spinal tenderness to palpation. No obvious deformity. SKIN: No rash or suspicious lesions. DIAGNOSTIC STUDIES: Latest Ref Rng AND Units 01/03/2023 07/04/2023 12/31/2023 CBC WBC 3.70 - 11.00 k/uL 3.14 3.71 4.65 RBC 3.90 - 5.20 m/uL 3.90 4.15 3.93 Hemoglobin 11.5 - 15.5 g/dL 12.4 13.0 12.9 Hematocrit 36.0 - 46.0 % 37.9 41.3 39.7 MCV 80.0 - 100.0 fL 97.2 99.5 101.0 MCH 26.0 - 34.0 pg 31.8 31.3 32.8 MCHC 30.5 - 36.0 g/dL 32.7 31.5 32.5 RDW-CV 11.5 - 15.0 % 12.6 12.5 12.8 Platelet Count 150 - 400 k/uL 353 345 387 MPV 9.0 - 12.7 fL 9.4 9.9 9.9 Baso% % 1.0 0.8 0.6 Abs Neut (ANC) 1.45 - 7.50 k/uL 1.63 2.01 2.88 Abs Lymph 1.00 - 4.00 k/uL 0.92 1.16 1.18 Abs [place] <0.87 k/uL 0.50 0.48 0.49 Abs Eosin <0.46 k/uL 0.05 <0.03 0.06 Abs Baso <0.11 k/uL 0.03 0.03 0.03 NRBC /100 WBC 0.0 0.0 0.0 Latest Ref Rng AND Units 01/03/2023 07/04/202312/3012/31/2023 CMP Sodium 136 - 144 mmol/L 145 143 139 Potassium 3.7 - 5.1 mmol/L 4.8 5.2 4.8 Chloride 98 - 107 mmol/L 106 105 103 CO2 22 - 30 mmol/L 28 28 26 Glucose 74 - 99 mg/dL 93 94 79 BUN 7 - 21 mg/dL 13 12 17 Creatinine 0.58 - 0.96 mg/dL 0.74 0.79 0.86 EGFR >=60 mL/min/1.73m? 93 86 77 Protein, Total 6.3 - 8.0 g/dL 7.5 7.7 6.8 Albumin 3.9 - 4.9 g/dL 4.6 4.6 4.3 Calcium 8.5 - 10.2 mg/dL 10.1 10.4 9.7 Bilirubin, Total 0.2 - 1.3 mg/dL 0.4 0.4 0.2 AST 13 - 35 U/L 20 18 18 ALT 7 - 38 U/L 12 13 12 Alkaline Phosphatase 34 - 123 U/L 128 113 100 Latest Ref Rng 12/31/2023 LD 135 - 214 U/L 163 IMPRESSION AND PLAN: 1. Follicular lymphoma: Surveillance CT scans performed yesterday, radiology report is pending but on my review the images appear quite similar to 08/2022 scans consistent with continued CR, but will follow radiology results when available. 2. IV access: Peripheral IV access is marginal; anticipate that a port will be needed for further treatment in the future. I spent approximately 20 minutes in the visit including review of history/test results and preparing/completing documentation with more than 50% of the total [id number] time of the visit in counseling / coordination of care Sergio Plascencia PA-C cc: Sergio Landaverde MD; ; [facility]07-16-2024 History of Present illness Narrative* Kalli Phan RT(R) - 01/01/2024 9:00 AM EDT Radiology Service Progress Note DATE OF SERVICE: January 01, 2024 TIME: 10:20 AM PATIENT IDENTITY VERIFICATION COMPLETED USING TWO (2) STANDARD IDENTIFIERS: Name and Date of confirmed by patient verbally. FALL SCREENING: Has the patient had 2 falls in the last year or 1 fall with injury or currently using an Ambulatory Assistive Device (Walker, Cane, Wheelchair, Crutches, etc.)? No PATIENT GENDER DATA: Female. status: : No status: NO. PATIENT RELEVANT IMPLANT DATA REVIEWED: Yes PATIENT PRESENTS WITH AN IMPLANTABLE OR ATTACHED DISTANCE EDUCATION COORDINATOR: No ALLERGIES: Reviewed and unchanged CONTRAST ALLERGY: NO. EXAM: CT -CONTRAST INDUCED NEPHROPATHY RISK FACTORS: Patient age > 60 years CREATININE: Creatinine Date Value Ref Range Status 12/31/2023 0.86 0.58 - 0.96 mg/dL Final 07/04/2023 0.79 0.58 - 0.96 mg/dL Final 01/03/2023 0.74 0.58 - 0.96 mg/dL Final Estimated Glomerular Filtration Rate Date Value Ref Range Status 12/31/2023 77 >=60 mL/min/1.73m Final Comment: Estimated Glomerular Filtration Rate (eGFR) is calculated using the 2020 CKD-EPI creatinine equation. This equation utilizes serum creatinine, sex, and age as parameters. The creatinine assay has traceable calibration to isotope dilution- mass spectrometry. Refer to KDIGO guidelines for clinical interpretation. In patients with unstable renal function, e.g. those with acute kidney injury, the eGFRmay not accurately reflect actual GFR. eGFR- Date Value Ref Range Status 08/11/2021 >60 Final P.O.C.T. RESULTS: POC done: Yes, See Lab Tab January 01, 2024 TREATMENT: N/A and No Hydration needed. PERIPHERAL IV DATA: Ambulatory: A peripheral IV was started in the Right with a Angio cath: 22 gauge. RADIOLOGY DEPARTMENT: CT; Exam(s) Completed: Chest Abdomen Pelvis SIGNATURE: RT Marcia(Edmar) PATIENT NAME: Josephine Renee DATE: January 01, 2024 TIME: 10:20 AM documented in this encounterBl[facility] NoteHNO ID: [id number] Author: KALLI PHAN RT(R) Service: Radiology Author Type: Leather [employer] Matcher Type: Progress Notes Filed: 01/01/2024 10:22 Note Text: Radiology Service Progress Note DATE OF SERVICE: January 01, 2024 TIME: 10:20 AM PATIENT IDENTITY VERIFICATION COMPLETED USING TWO (2) STANDARD IDENTIFIERS: Name and Date of confirmed by patient verbally. FALL SCREENING: Has the patient had 2 falls in the last year or 1 fall with injury or currently using an Ambulatory Assistive Device (Walker, Cane, Wheelchair, Crutches, etc.)? No PATIENT GENDER DATA: Female. status: : No status: NO. PATIENT RELEVANT IMPLANT DATA REVIEWED: Yes PATIENT PRESENTS WITH AN IMPLANTABLE OR ATTACHED DISTANCE EDUCATION COORDINATOR: No ALLERGIES: Reviewed and unchanged CONTRAST ALLERGY: NO. EXAM: CT -CONTRAST INDUCED NEPHROPATHY RISK FACTORS: Patient age > 60 years CREATININE: Creatinine Date Value Ref Range Status 12/31/2023 0.86 0.58 - 0.96 mg/dL Final 07/04/2023 0.79 0.58 - 0.96 mg/dL Final 01/03/2023 0.74 0.58 - 0.96 mg/dL Final Estimated Glomerular Filtration Rate Date Value Ref Range Status 12/31/2023 77 >=60 mL/min/1.73m? Final Comment: Estimated Glomerular Filtration [...] RESULTS: POC done: Yes, See Lab Tab January 01, 2024 TREATMENT: N/A and No Hydration needed. PERIPHERAL IV DATA: Ambulatory: A peripheral IV was started in the Right with a Angio cath: 22 gauge. RADIOLOGY DEPARTMENT: CT; Exam(s) Completed: Chest Abdomen Pelvis SIGNATURE: RT Marcia(R) PATIENT NAME: Josephine Renee DATE: January 01, 2024 TIME: 10:20 [facility] Telephone encounter Note* Telephone Encounter - Vickie Maguire RN - 12/26/2023 5:08 PM EDT Called and informed patient that scans have been requested and creatine is a test to ensure kidneysare healthy to tolerate the contrast. So patient could call scheduling to schedule CT and then get lab a few days before scan [facility] Work Phone: 1(486) 668-231907-10-2024 Miscellaneous Notes* Telephone Encounter - Vickie Maguire RN - 12/26/2023 5:08 PM EDT Called and informed patient that scans have been requested and creatine is a test to ensure kidneysare healthy to tolerate the contrast. So patient could call scheduling to schedule CT and then get lab a few days before scan documented in this encounterBl[facility]07[facility] Telephone encounter Note * Telephone Encounter - Vickie Maguire RN - 12/24/2023 1:[address] chest abd pelvis pended to dr. Hill . Requested to be scheduled. [facility] Work Phone: 1(850) 486-665307-08-2024 Miscellaneous Notes* Telephone Encounter - Vickie Maguire RN - 12/24/2023 1:[address] chest abd pelvis pended to dr. Hill . Requested to be scheduled. documented in this encounterBlanchard Valley [facility]04-[facility]24 Discharge summary Author Katherine Yeboah [facility] September 24, 2023 2:26pm Note Date/Time September 24, 2023 2:26 pm [facility] Physical Therapy [facility] [address] [place] [address]. [address] [place] [address] / REHABILITATION SERVICES DISCHARGE SUMMARY MR#: [id number] Acct: [id number] Name: JOSEPHINE RENEE Rep #: [id number] : 1965 58 From: Cert. MENDEZ Palma PTT Referring Dr.: MICHALE Sierra Status : REG RCR Insurance: [facility] P[employer]AGE PLAN Patient Information Patient Information: JOSEPHINE RENEE was seen in my office for initial evaluation on 07/17/23. The following Plan of Care was established for this patient: POC Established Initial Frequency: 1x/Week Initial Duration: 1 Week Last Seen Last Seen: This patient was last seen in our office 07/17/23. Pertinent comments regardingtheir Physical therapy will appear below: See Initial Evaluation Report. At this point I will be discontinuing this patient from physical therapy. I would be happy to see this patient again in the future if found appropriate by the physician. Thank you! Katherine Yeboah PT, Cert T Balance/Gait/Functional tests Balance/Special Test Scores Lower Extremity Functional Score: 48 <Electronically signed by Cert. MENDEZ Palma PTT> 09/24/23 1426 CC: MICHAEL Sierra; Dr. Sergio Landaverde MD ~ [facility] Work Phone: 1(851) 298-725904-07-2023 Procedure [facility] 09-22-[address] Sierra [facility] September 22, 2022 10:52am Note Date/Time September 22, 2022 7:34 am [facility] Medical Records Department [address] [place] [address] Instructions for Home/Discharge Instructions 09/22/22 0732 MR#: [id number] Acct: [id number] Name: JOSEPHINE RENEE Rep #:[id number] : 1965 57 From: Benson Sierra DPM PCP: Dr. Kushal Landaverde MD Status: REG [facility] Discharge Instructions Diet Discharge Diet: Light diet - advance as tolerated Activity Discharge Activity: Use Walker and Use Crutches Weight Bearing Status: No weight bearing (No weightbearing left foot.) Keep extremity elevated above heart level: Left Leg (Keep left foot elevated forat least 50 minutes of every hour.) Dressing / Incision Call your doctor if your incision/area has: Sudden Increased Bleeding and Foul Smelling Discharge Call your doctor if you observe: Fever of 101 or Higher, Shortness of breath, Chest pain, Increased palpitations (irregular heartbeat), Calf discomfort and Uncontrolled pain Change Dressing in: do not change dressing Remove Dressing in: do not remove dressing Cleanse incision/area with: Keep Dressing Clean & Dry Follow Up Care Please Follow Up With: Benson Sierra DPM When: 1 week, sooner if needed. Also ok to take Ibuprofen for pain: take 400mg by mouth every 6 hours as needed for pain. Test Results: Test results from this visit will be discussed in further detail at your follow- up appointment, if applicable. Discharge Plan Admission Attending Provider: Benson Sierra Primary Care Provider: Kushal Landaverde Discharge Orders/Prescriptions Prescriptions: New oxycodone-acetaminophen [Percocet] 5-325 mg tablet 1 - 2 tab PO Q6H PRN (Reason: pain) 5 Days Qty: 24 0RF No Action duloxetine [Cymbalta] 20 mg capsule,delayed release(DR/EC) 20 mg PO DAILY cholecalciferol (vitamin D3) [Vitamin D3] 25 mcg (1,000 unit) Capsule 25 mcg PO DAILY [place] 3 Capsule 1,000 mg PO DAILY Vitamin B-12 1,000 mcg Lozenge 1,000 mcg PO QODAY calcium carbonate [Calcium 600] 600 mg calcium (1,500 mg) Tablet 600 mg PO DAILY ciprofloxacin HCl [Cipro] 500 mg Tablet 500 mg PO BID Referrals / Follow Up: Kushal Landaverde MD [Primary Care Provider] - Disposition Disposition (needs filled in before D/C Order can be placed): Home, Self Care 09/22/22 1052<Electronically signed by Benson Sierra DPM>Benson Sierra DPM CC: Dr. Kusahl Landaverde MD ~ Signed [facility] Work Phone: 1(637) 922-649503-17-2023 History of Present illness Narrative* Karo Hill MD - 09/01/2022 9:18 [address] [facility] CLINICAL NOTE Department of Hematology and Medical Oncology PATIENT NAME: Josephine Renee CLINIC NO.: [id number] ATTENDING PHYSICIAN: Karo Hill MD DATE OF [...] recovered fully from her treatment. MEDICATIONS: Per WebCurfew. REVIEW OF SYSTEMS: As described above. ECOG [...] Lymph 1.00 - 4.00 k/uL 0.60 (L) [place]% % 13.5 Abs [place] <0.87 k/uL 0.49 Eosin% % 1.4 Abs [...] months. We agreed to defer restaging CT scansuntil 2 years after completing treatment. 2. IV access: Peripheral IV access is marginal; anticipate that a port will be needed for further treatment in the future. I spent a total of 20 minutes on the date of the service which included preparing to see the patient, [id number] patient care, completing clinical documentation, obtaining and/or reviewing separately obtained history, performing a medically appropriate examination, counseling and educating the pat ient/family/caregiver, and ordering medications, tests, or procedures. Karo Hill MD cc: Sergio Landaverde MD; ; documented in this encounterBlanchard Valley [facility]03[facility]17[facility] Nurse Note* Sandie Pro RN - 09/01/2022 9:05 AM EDT Additional intake questions: Has the patient had [...] Work or Resource Center documented in this encounterBlanchard Valley Health System [facility]03-15-2023 History of Present illness Narrative* Kylee Barrera, RT(R) - 08/30/2022 11:00 AM EDT Radiology Service Progress Note DATE OF SERVICE: [...] creatinine assay has traceable calibration to isotope dilution- mass spectrometry. Refer to KDIGO guidelines for clinical interpretation. In patients with unstable renal function, e.g. those with acute kidney injury, the eGFRmay not accurately reflect actual GFR. eGFR- Date Value Ref Range Status 08/11/2021 >60 Final P.O.C.T. RESULTS: POC done: Yes, See Lab Tab August 30, 2022 TREATMENT: N/A PERIPHERAL IV DATA: Ambulatory: A peripheral IV was started in the Left antecubital site with a Angio cath: 22 gauge. RADIOLOGY DEPARTMENT: CT; Exam(s) Completed: Chest Abdomen Pelvis SIGNATURE: RT Ellis([place]) PATIENT NAME: Josephine Renee DATE: August 30, 2022 TIME: 3:00 PM documented in this encounterBlanchard Valley Health System [facility]03-02-2023 Miscellaneous Notes* Telephone Encounter - Zoraida Jorgensen RN - 08/17/2022 2:39 PM EST Patient notified and voiced understanding. * Telephone Encounter - Dalton Mayes MD - 08/17/2022 2:26 PM EST Patient's request for medication is as follows Requested Prescriptions Signed Prescriptions Disp Refills estradiol (ESTRING) 2 mg (7.5 mcg /24 hour) vaginal ring 1 Each 4 Sig: Use 2 mg vaginally every 3 months. Authorizing Provider: DALTON MAYES Order entered - please phone pharmacy and notify patient. Dalton Mayes MD * Telephone Encounter - Gisel Garcia RN - 08/17/2022 12:44 PM EST SW patient asking if she can go back on the Estring instead of the estradiol suppository she is using now. The Estring is lower cost and more convenient. RX pending. Patient would like a call back. Gisel Garcia RN documented in this encounterBlanchard Valley Health System [facility]02-02-2023 Miscellaneous Notes* Telephone Encounter - Marychuy Joe RN - 07/20/2022 3:18 PM EST Patient thought Dr. Hill told her at her appointment she should be getting a follow up PET scan. She said she sees that there was a CT scan ordered, she did not think this was correct. Told pt that per Dr. Hill's note at her last follow up visit, in his plan he clearly indicated thathe wanted her to return to clinic in [address] up [address] scans. Pt verbalized understanding and was fine with this. Had not further questions. Marychuy Joe RN * Telephone Encounter - Jeniffer Sinclair - 07/20/2022 2:04 PM EST Josephine Renee is calling Karo Hill MD today regarding Warehouse Helper - Other (Return call needed) Patient has been identified by name and birthdate. Requesting response back: [phone] (home) [phone] (cell) Pt called in stating that she was supposed to be scheduled for a PET Scan, Labs and OV. I see the OV and lab orders but not the PET Scan. She is saying she cannot see anything scheduled at all in [facility]. Please return the call to discuss the PET Scan appt. Jeniffer Sinclair July 20, 2022 documented in this encounterBlanchard Valley Health System [facility]12-15-2022 History of Present illness Narrative* My Borges MD - 06/01/2022 10:05 AM EST Josephine Renee is a 57 year old female who presents for dyspareunia. HPI: Having severe dyspareunia with insertion. Was on Prempro and Estring in the past. Was then on vaginal estrogen cream, which did not improve her symptoms. Has tried Imvexxy and just increased thedose last week. Still having pain with intercourse. No other new symptoms or new complaints today. She would like to continue to try Imvexxy. 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 Lead Pharmacy Technician History LMP: Postmenopausal Age at Menarche: 12 Age at First : Age at Menopause: 52 Lead Pharmacy Technician History Comments: Sexual Activity: Not Currently; Male [...] of Date: 06/01/2022 Allergen Noted Reaction BACTRIM [SULFAMETHOXAZOLE-TRIMETH*06/25/2019 Hives Fully Assessed 05/26/2022 REVIEW OF SYSTEMS Expanded ROS: N/A Allergies and current medication updated:Yes EXAM: BP 132/82 Wt 123 lb 14.4 oz (56.2kg) GENERAL: pleasant, female in no apparent distress HEENT: Normocephalic and atraumatic NECK: full range of motion DERMATOLOGY: Normal and without lesions CHEST: Normal inspiratory effort PELVIC: external genitalia atrophic, normal Bartholin's glands, urethra, Wynnedale's glands, no vulvar lesions, no cervical lesions, good vaginal support, physiologic discharge present, normal appearing perineal body and perianal region NEURO: exam grossly non-focal EXTREMITIES: normal ASSESSMENT AND PLAN: Encounter Diagnosis ICD-10-CM 1. 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 Vaginal atrophy N95.2 CONSULT TO [facility] 3. Superficial dyspareunia N94.11 CONSULT TO [facility] Exam c/w atrophy again today. Cont Imvexxy [...] Level: 2 - Straightforward documented in this encounterBlanchard Valley Health System [facility]11-29-2022 Miscellaneous Notes* Telephone Encounter - Gisel Garcia RN - 05/16/2022 11:10 AM EST Patient notified. Gisel Garcia RN * Telephone Encounter - My Borges MD - 05/15/2022 5:29 PM EST Rx sent but please notify pt increased dose from 4 mcg to the 10 mcg pack as she did not have significant improvement. To try this before scheduled follow up and can keep appointment * Telephone Encounter - Brian Fernandez RN - 05/15/2022 2:45 PM EST Last prescribed 03/17/2022 when she had her annual . see My Chart message from today documented in this encounterBlanchard Valley Health System [facility]09-30-2022 History of Present illness Narrative* My Borges MD - 03/17/2022 9:39 AM EDT Chief Catalyst Operator offered: Patient declinesKeith Burton is a 57 year old who presents [...] L0 SAB0 IAB0 Ectopic0 Multiple0 Live Births0 Lead Pharmacy Technician History LMP: Postmenopausal Age at Menarche: 12 Age at First : Age at Menopause: 52 Lead Pharmacy Technician History Comments: Sexual Activity: Not Currently; Male [...] medication updated:Yes EXAM: BP 100/60 Ht 5' 3.583" (1.62m) Wt 119 lb (54.0kg) BMI 20.70 [...] external genitalia atrophic, normal Bartholin's glands, urethra, Wynnedale's glands, no vulvar lesions, no cervical lesions, [...] symptoms not improved on Imvexxy discussed: adding backin Prempro, can increase dose of Imvexxy, referral for second opinion, pelvic floor PT. 2) Follow up one year or sooner as needed My Borges DO documented in this encounterBlanchard Valley Health System [facility]09-01-2022 Miscellaneous Notes* Telephone Encounter - Marychuy Joe RN - 02/16/2022 5:09 PM EDT Called pt, questions were answered and charted under telephone encounter. Marychuy Joe RN documented in this encounterBlanchard Valley Health System [facility]09-01-2022 Miscellaneous Notes* Telephone Encounter - Marychuy Joe RN - 02/16/2022 4:51 PM EDT Called pt to talk about her questions she submitted via addwish. Told pt that I spoke with Dr Hill and as far as being able to label herself as in remission, per Kye she is "close" to being able to be considered as [...] point. Marychuy Joe RN documented in this encounterBlanchard Valley Health System [facility]08-31-2022 Miscellaneous Notes* Letter - Mammography Coordinator - 02/15/2022 3:30 PM EDT February 15, 2022 PID: [id number] Josephine Renee [address] [place] [address] Dear Ms. Renee, We are pleased to [...] dense breast tissue in addition to other riskfactors. Early detection of cancer is very important. We also understand recommendations regarding breast cancer screening are controversial. Please discuss with your primary care provider which strategy is best for you and whether a mammogram is right for you. Your imaging studies and report will be kept on file at [facility] as part of your permanent medical record and are available for your continuing care. Thank you for allowing us to help in meeting your health care needs. Sincerely, Dr. Huff Interpreting Radiologist [facility] (Normal over 40) documented in this encounterBlanchard Valley Health System [facility]08-31-2022 History of Present illness Narrative* RT Yasmni(R) - 02/15/2022 2:40 PM EDT Radiology Service Progress Note PATIENT NAME: Josephine Renee DATE OF SERVICE: February 15, 2022 TIME: 2:25 PM PATIENT IDENTITY VERIFICATION COMPLETED USING TWO (2) IDENTIFIERS: Name and Date of confirmedby patient verbally. FALL SCREENING: Has the patient [...] 15, 2022 2:25 PM documented in this encounterBlanchard Valley Health System [facility]08-29-2022 Instructions* Patient Instructions* My Borges MD - 02/13/2022 9:01 AM EDT - Jammie Stanley: Dr. Kamilla Pratt - Gael - Dr. Aranda - vulvar specialist documented in this encounterBlanchard Valley Health System [facility]08-29-2022 History of Present illness Narrative* My Borges MD - 02/13/2022 8:43 AM EDT Chief Catalyst Operator offered: Patient declines. Josephine Renee is a 56 year old female [...] L0 SAB0 IAB0 Ectopic0 Multiple0 Live Births0 Lead Pharmacy Technician History LMP: Postmenopausal Age at Menarche: 12 Age at First : Age at Menopause: 52 Lead Pharmacy Technician History Comments: Sexual Activity: Yes; Male Contraception: [...] of Date: 02/13/2022 Allergen Noted Reaction BACTRIM [SULFAMETHOXAZOLE-TRIMETH*06/25/2019 Hives Fully Assessed 02/13/2022 REVIEW OF SYSTEMS Expanded ROS: N/A Allergies and current medication updated:Yes EXAM: BP 106/70 Wt 121 lb 12.8 oz (55.2kg) GENERAL: pleasant, female in no apparent distress HEENT: Normocephalic and atraumatic NECK: full range of motion PELVIC: external genitalia atrophic, normal Bartholin's glands, urethra, Wynnedale's glands, no vulvar lesions, no cervical lesions, good vaginal support, physiologic discharge present, normal appearing perineal body and perianal region, vaginal atrophy noted BIMANUAL: uterus normal size, shape and consistency, no adnexal masses, non- tender, and no pelvic floor dysfunction appreciated NEURO: exam grossly non-focal EXTREMITIES: normal ASSESSMENT AND PLAN: Encounter Diagnosis ICD-10-CM 1. Vulvar burning N94.89 CONSULT TO MANAGER LOCAL INFECTIOUS DISEASE 2. 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 estradiol (ESTRACE) 0.01 % (0.1 mg/gram) vaginal cream 3. Vaginal atrophy N95.2 estradiol (ESTRACE) 0.01 % (0.1 mg/gram) vaginal cream 4. Superficial dyspareunia N94.11 estradiol (ESTRACE) 0.01 % (0.1 mg/gram) vaginal cream 5. Cyst of ovary, unspecified laterality N83.209 PELVIC US WHI 6. Abnormal mammogram R92.8 [facility] DIAGNOSTIC BILAT 7. Encounter for screening mammogram [...] Level: 4 - Moderate documented in this encounterBlanchard Valley Health System [facility]08-26-2022 History of Present illness Narrative* Karo Hill MD - 02/10/2022 10:58 AM EDT Evusheld (tixagevimab/cilgavimab) Eligibility and Patient Discussion [facility] Formulary Restriction Criteria: Outpatient adults and pediatrics 12 years and older and > 40 kg with ALL of the following: [x] COVID test scheduled: No Date: TBD, type of test:Home antigen [x] Patient has not been exposed to a SARS-COV-2 positive individual ([facility] information on COVID exposure link) [x] Patient [...] or severe primary immunodeficiency (e.g. DiGeorge syndrome, Wiskott- Aldrick syndrome) [] Advanced or untreated HIV infection [...] COVID-19 vaccine, according to the approved or authorizedschedule, is not recommended due to a history of severe adverse reaction (e.g. severe allergic reaction) to a COVID-19 vaccine(s) and/or COVID-19 vaccine components Criteria above are met: Yes Patient received COVID vaccine: Yes Last dose of COVID vaccine is greater than 14 days prior to the planned injection date of Evusheld:Yes Laboratory and comorbidity assessment: Platelet Count (k/uL) Date Value 02/08/2022 299 12/28/2021 275 Last platelet count greater than 20 k/uL: Yes. If on warfarin, most recent INR should be within therapeutic range: not applicable Cardiovascular disease history: No. I have discussed the use of the investigational therapeutic, Evusheld (tixagevimab/cilgevimab), forpre-exposure prophylaxis of COVID-19 infection and its use [...] The patient was provided electronically with the "Fact Sheet for Patients, Parentsand Caregivers". The patient stated understanding and gave verbal consent to proceeding with tixagevimab/cilgevimab treatment. Karo Hill MD February 10, 2022 10:59 AM documented in this encounterBlanchard Valley Health System [facility]08-26-2022 Instructions* Patient Instructions* Karo Hill MD - 02/10/2022 10:58 AM [...] issued an Emergency Use Authorization (EUA) to makeEVUSHELD available during the COVID-19 pandemic (for more [...] You can get COVID-19 through close contact withanother person who has the virus. COVID-19 illnesses have ranged from very mild (including some with no reported symptoms) to severe,including illness resulting in . While information so far suggests that most COVID-19 illness is mild, serious illness can happen and may cause some of your other medical conditions to become worse. Older people and people of all ages with severe, long-lasting (chronic) medical conditions likeheart disease, lung disease, and diabetes, for example, [...] not had recent known close contact with someonewho is infected with SARS-CoV-2 and Who have [...] safety and effectiveness of using EVUSHELD for pre- exposure prophylaxis for prevention of COVID-19. EVUSHELD is not authorized for post-exposure prophylaxis for prevention of COVID-19. The FDA has authorized the emergency use of EVUSHELD for pre-exposure prophylaxis for prevention ofCOVID-19 under an Emergency Use Authorization (EUA). What should I tell my healthcare provider before I receive EVUSHELD? Tell your healthcare provider if you: Have any allergies, including if you have had a severe allergic reaction to a COVID-19 vaccine Have low numbers of blood platelets (which help blood clotting), a bleeding disorder, or are takinganticoagulants (to prevent blood clots) Have had a heart attack or stroke, have other heart problems, or are at high- risk of cardiac (heart) events Are or plan to become Are a child Have any serious illness Are taking any medications (prescription, opbs-mnf-oozjvjq, vitamins, or herbal products) How will I receive EVUSHELD? EVUSHELD consists of two investigational medicines, tixagevimab and cilgavimab. You will receive 1 dose of EVUSHELD, consisting of 2 separate injections (tixagevimab and cilgavimab). EVUSHELD will be given to you by your healthcare provider as 2 intramuscular injections, given one after the other. Viruses can cell changer time (mutate) and develop into a [...] itching, tiredness or weakness, skin flushing, fast hea rt rate, sweating, chest pain or discomfort, muscle [...] your body s immune response to a COVID- 19 vaccine. If you have received a COVID-19 [...] treatment or prevention of COVID-19 go to https://www.fda.gov/abigyqcbz-fkpfixyusenz-epc-response/jvv-vstqq-rshwtywszb-and -policy-framework/wwwihfmaq-rwb-yoaqoxhpwvifw. It is your choice to receive or not receive EVUSHELD. Should you decide not to receive EVUSHELD, itwill not change your standard medical care. EVUSHELD [...] not go away. Report side effects to [employer] at www.fda.gov/medTheMarkets or call 7-500-ZLP-3061 or call [employer] . Additional Information If you have questions, visit the website or call the telephone number provided below. To access the most recent EVUSHELD Fact Sheets, please scan the QR code provided below. Website Telephone number [email or web address] How can I learn more about COVID-19? Ask your healthcare provider. Visit https://www.cdc.gov/COVID19 Contact your local or state public health department. What is an Emergency Use Authorization? The [place] FDA has made EVUSHELD (tixagevimab co-packaged with cilgavimab) available under an emergency access mechanism called an Emergency Use Authorization EUA. The EUA is supported by a [place] of Health and Human Service (HHS) declaration [...] monohydrate, polysorbate 80, sucrose, water. Distributed by: [employer] [place], [place] Manufactured for: [place], [place] [employer] 2021. All rightsreserved. documented in this encounterBlanchard Valley Health System [facility]08-26-2022 Nurse Note* Norah Kaplan RN - 02/10/2022 10:18 AM EDT Additional intake questions: Has the patient had fever, nausea, vomiting, diarrhea, constipation, fatigue for > 1 week? Yes, fatigue and Provider Notified Does the patient have a decreased appetite? No Does patient want to see a Electrical Cad Designer? No (yes to any of above refer patient to schedulers for dietitian appointment) ) Does patient have any new or increased numbness or tingling of extremities? No Is patient interested in fertility information? No Does patient need any prescription refills? No Does patient have an advanced directive in place? No, Patient referred to Resource Center documented in this encounterBlanchard Valley Health System [facility]08-26-2022 History of Present illness Narrative* Karo Hill MD - 02/10/2022 10:[address] 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 INTERIM HISTORY: Nursing notes reviewed; agree with findings as documented. Ms. Renee returns aftercycle 6 of treatment. She tolerated the last cycle without major side effect issues. She had fleeting episodes of slight nausea but did not require medication. Peripheral venous access continues to be a challenge. Her blood draw earlier this week was difficult. She still feels somewhat tired overall but denies subjective lymphadenopathy or constitutional symptoms. She is scheduled for a follow-upvisit with her resource technician next week. She decided not to proceed with receiving Evusheld after her last appointment, explaining that at the time she was feeling frustrated about being stuck with needles for so many things. After reflection she has decided now that she would like to move forward with the treatment. MEDICATIONS: Per WebCurfew. REVIEW OF SYSTEMS: As described above. ECOG [...] Lymph 1.00 - 4.00 k/uL 0.33 (L) [place]% % 14.1 Abs [place] <0.87 k/uL 0.50 Eosin% % 13.3 Abs [...] excellent, near-complete response to front-line treatment with bendamustineand rituximab. It is unlikely that maintenance rituximab will provide a significant incremental benefit, and I recommended observation without further treatment. Ms. Renee is in agreement. I will seeher for follow-up in [address] [...] work-up is warranted when she sees her resource technician, Dr. Borges, at their upcoming appointment. I spent a total of 35 minutes on the date of the service which included preparing to see the patient, mclu-[id number] patient care, completing clinical documentation, obtaining and/or reviewing separately obtained history, performing a medically appropriate examination, counseling and educating the pat ient/family/caregiver, and ordering medications, tests, or procedures. Karo Hill MD cc: Sergio Landaverde MD; ; documented in this encounterBlanchard Valley Health System [facility]08-24-2022 History of Present illness Narrative* Keerthi Villalta RN - 02/08/2022 11:00 AM EDT Radiology Service Progress Note DATE OF SERVICE: [...] Intact SIGNATURE: Keerthi Villalta RN PATIENT NAME: Josephine Renee DATE: February 08, 2022 TIME: 9:44 AM * RT Abraham(R) - 02/08/2022 11:00 AM EDT Radiology Service Progress Note PATIENT NAME: Josephine Renee DATE OF SERVICE: February 08, 2022 TIME: 10:01 AM PATIENT IDENTITY VERIFICATION COMPLETED USING TWO (2) IDENTIFIERS: Name and Date of confirmedby patient verbally and Name and Date of [...] 08, 2022 10:01 AM documented in this encounterBlanchard Valley Health System [facility]07-14-2022 History of Present illness Narrative* Cami Smith RN - 12/29/2021 10:27 AM EDT Pt states she doesn't want to receive evusheld injections. Dr. Hill notified. documented in this encounterBlanchard Valley Health System [facility]07-13-2022 Nurse Note* Norah Kaplan RN - 12/28/2021 11:29 AM EDT Patient ID confirmed Patient is currently asymptomatic COVID19 swab ordered by Arabella Hill Procedure explained, swab completed. Specimen hand delivered to [facility] lab. Patient given printed COVID19 prevention instructions Norah Kaplan RN 11:30 AM December 28, 2021 * Dirk Julio LPN - 12/28/2021 10:55 AM EDT Additional intake questions: Has the patient had fever, nausea, vomiting, diarrhea, constipation, fatigue for > 1 week? No Does the patient have a decreased appetite? No Does patient want to see a Electrical Cad Designer? No (yes to any of above refer patient to schedulers for dietitian appointment) ) Does patient have any new or increased numbness or tingling of extremities? No Is patient interested in fertility information? No Does patient need any prescription refills? No Does patient have an advanced directive in place? Yes, no copy found in Epic pt to bring to Nurse next visit documented in this encounterBlanchard Valley Health System [facility]07-13-2022 History of Present illness Narrative* Karo Hill MD - 12/28/2021 11:25 AM EDT Evusheld (tixagevimab/cilgavimab) Eligibility and Patient Discussion [facility] Formulary Restriction Criteria: Outpatient adults and pediatrics 12 years and older and > 40 kg with ALL of the following: [x] COVID test scheduled: Yes Date: 12/28/2021, type of test:Laboratory collected [x] Patient has not been exposed to a SARS-COV-2 positive individual ([facility] information on COVID exposure link) [x] Patient [...] or severe primary immunodeficiency (e.g. DiGeorge syndrome, Wiskott- Aldrick syndrome) [] Advanced or untreated HIV infection [...] COVID-19 vaccine, according to the approved or authorizedschedule, is not recommended due to a history [...] use of the investigational therapeutic, Evusheld (tixagevimab/cilgevimab), forpre-exposure prophylaxis of COVID-19 infection and its use [...] The patient was provided electronically with the "Fact Sheet for Patients, Parentsand Caregivers". The patient stated understanding and gave verbal consent to proceeding with tixagevimab/cilgevimab treatment. Karo Hill MD December 28, 2021 11:26 AM documented in this encounterBlanchard Valley Health System [facility]07-13-2022 Instructions* Patient Instructions* Karo Hill MD - 12/28/2021 11:25 AM [...] issued an Emergency Use Authorization (EUA) to makeEVUSHELD available during the COVID-19 pandemic (for more [...] You can get COVID-19 through close contact withanother person who has the virus. COVID-19 illnesses have ranged from very mild (including some with no reported symptoms) to severe,including illness resulting in . While information so far suggests that most COVID-19 illness is mild, serious illness can happen and may cause some of your other medical conditions to become worse. Older people and people of all ages with severe, long-lasting (chronic) medical conditions likeheart disease, lung disease, and diabetes, for example, [...] not had recent known close contact with someonewho is infected with SARS-CoV-2 and o Who have moderate to severe immune compromise due to a medical condition or have received immunosuppressive medicines or treatments and may not mount an adequate immune response to COVID-19 vaccination or o For whom vaccination with any available COVID-19 vaccine, according to the approved or authorizedschedule, is not recommended due to a history of severe adverse reaction (such as severe allergic reaction) to a COVID-19 vaccine(s) or COVID-19 vaccine ingredient(s). EVUSHELD is investigational because it is still being studied. There is limited information known about the safety and effectiveness of using EVUSHELD for pre- exposure prophylaxis for prevention of COVID-19. EVUSHELD is not authorized for post-exposure prophylaxis for prevention of COVID-19. The FDA has authorized the emergency use of EVUSHELD for pre-exposure prophylaxis for prevention ofCOVID-19 under an Emergency Use Authorization (EUA). What should I tell my healthcare provider before I receive EVUSHELD? Tell your healthcare provider if you: Have any allergies Have low numbers of blood platelets (which help blood clotting), a bleeding disorder, or are takinganticoagulants (to prevent blood clots) Have had a heart attack or stroke, have other heart problems, or are at high- risk of cardiac (heart) events Are or plan to become Are a child Have any serious illness Are taking any medications (prescription, ssoz-zwa-zhfjadd, vitamins, or herbal products) How will I [...] of EVUSHELD for ongoing protection. Viruses can cell changer time (mutate) and develop into a [...] up-to-date with the latest information by visiting [email or web address] or by scanning the QR code, below: Who should generally not take EVUSHELD? Do not take EVUSHELD if you have had a severe allergic reaction to EVUSHELD or any ingredient in EVUSHELD. What are the important possible side effects of EVUSHELD? Possible side effects of EVUSHELD are: Allergic reactions. Allergic reactions can happen during and after injection of EVUSHELD. Tell yourhealthcare provider right away if you get any of the following signs and symptoms of allergic reactions: fever, chills, nausea, headache, shortness of breath, low or high blood pressure, rapid or slow heart rate, chest discomfort or pain, weakness, confusion, feeling tired, wheezing, swelling of your lips, face, or throat, rash including hives, itching, muscle aches, dizziness and sweating. Thesereactions may be severe or life threatening. Cardiac [...] your body s immune response to a COVID- 19 vaccine. If you have received a COVID-19 [...] treatment or prevention of COVID-19 go to https://www.fda.gov/yuqcuujlm-ihfigtidzlgh-nhb-response/yxb-zmnpv-cotwzaklui-and -policy-framework/zxkvoinmp-mve-otzxckmgmmynh. It is your choice to receive or not receive EVUSHELD. Should you decide not to receive EVUSHELD, itwill not change your standard medical care. EVUSHELD [...] to FDA MedWatch at www.fda.gov/medwatch or call 4-227-PNE-1711 or call [employer] . Additional Information If you have questions, visit the website or call the telephone number provided below. To access the most recent EVUSHELD Fact Sheets, please scan the QR code provided below. Website Telephone number [email or web address] How can I learn more about COVID-19? Ask your healthcare provider. Visit https://www.cdc.gov/COVID19 Contact your local or state public health department. What is an Emergency Use Authorization? The [place] FDA has made EVUSHELD (tixagevimab co-packaged with cilgavimab) available under an emergency access mechanism called an Emergency Use Authorization EUA. The EUA is supported by a Lead Care Manager of Health and Human Service (HHS) declaration [...] be used under the EUA). Distributed by: [employer], [place], [place] Manufactured by: [employer], [address] [facility] [address], [place] [facility] [employer] 2020. All rights reserved. documented in this encounterBlanchard Valley Health System [facility] History of Present illness Narrative* Karo Hill MD - 12/28/2021 11:[address] 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 INTERIM HISTORY: Nursing notes reviewed; agree with findings as documented. Ms. Renee returns aftercycle 5 of treatment. She had a couple of episodes of nausea and one bout of vomiting but overall her symptoms have been manageable and controlled with prochlorperazine when needed. No fevers. No subjective lymphadenopathy. She has questions about her infection risk and guidelines for precautions going forward. MEDICATIONS: Per WebCurfew. REVIEW OF SYSTEMS: As described above. ECOG [...] which included preparing to see the patient, oqdj-bh-ijod patient care, completing clinical documentation, obtaining and/or reviewing separately obtained history, performing a medically appropriate examination, counseling and educating the pat ient/family/caregiver and ordering medications, tests, or procedures. Karo Hill MD cc: Sergio Landaverde MD; ; documented in this encounterBlanchard Valley Health System [facility] History of Present illness Narrative* Karo Hill MD - 11/30/2021 11:03 AM EDT [facility] CLINICAL NOTE Department of Hematology and Medical Oncology PATIENT NAME: Josephine Renee 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 INTERIM HISTORY: Nursing notes reviewed; agree with findings as documented. Ms. Víctor returns aftercycle 4 of treatment. She continues to tolerate treatment well, with minimal nausea relieved by prochlorperazine as needed. Realizes in hindsight how poorly she felt prior to her diagnosis and statesthat her energy level and appetite continue to improve. IV access is challenging -- needs 2-3 attempts at IV placement each time, but does not want to have a port placed now. MEDICATIONS: Per WebCurfew. REVIEW OF SYSTEMS: As described above. ECOG [...] Lymph 1.00 - 4.00 k/uL 0.40 (L) [place]% % 14.8 Abs [place] <0.87 k/uL 0.59 Eosin% % 11.5 Abs [...] with some difficulty, but does not want aport at this time. 3. ID: No acute issues. Continue acyclovir prophylaxis. 4. CINV: managed effectively with prochlorperazine PRN. 5. Right ovarian cyst noted on current CT scans, not present on scans from 07/2021, likely physiologic; will reassess on post-treatment restaging scans and consider further evaluation if still presentthen. I spent a total of 25 minutes on the date of the service which included preparing to see the patient, defu-di-xpze patient care, completing clinical documentation, obtaining and/or reviewing separately obtained history, performing a medically appropriate examination, counseling and educating the pat ient/family/caregiver and ordering medications, tests, or procedures. Karo Hill MD cc: Sergio Landaverde MD; ; documented in this encounterBlanchard Valley Health System [facility] Nurse Note* Sunitha Sage MA - 11/30/2021 10:53 AM EDT Additional intake questions: Has the patient had [...] Work or Resource Center documented in this encounterBlanchard Valley Health System [facility]05[facility] History of Present illness Narrative* Karo Hill MD - 11/02/2021 8:[address] [facility] CLINICAL NOTE Department of Hematology and Medical Oncology PATIENT NAME: Josephine Renee 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 INTERIM HISTORY: Nursing notes reviewed; agree with findings as documented. Ms. Renee returns aftercycle 3 of treatment. She tolerated the last cycle better, with less nausea (relieved by prochlorperazine, only needed to take once) and no vomiting. No residual subjective lymphadenopathy. Still felt fairly fatigued for several days after her last treatment. MEDICATIONS: Per WebCurfew. REVIEW OF SYSTEMS: As described above. ECOG PS = 1. PHYSICAL EXAMINATION: VITAL SIGNS: BP 125/82 Pulse 73 Temp 36.6 C (97.9 F) (Oral) Resp 16 Ht 161.8 cm (5' 3.7") Wt 54.2 kg (119 lb 6.4 oz) [...] Lymph 1.00 - 4.00 k/uL 0.49 (L) [place]% % 13.7 Abs [place] <0.87 k/uL 0.52 Eosin% % 3.2 Abs [...] scans and consider further evaluation if still presentthen. I spent a total of 25 minutes on the date of the service which included preparing to see the patient, gpnb-[id number] patient care, completing clinical documentation, obtaining and/or reviewing separately obtained history, performing a medically appropriate examination, counseling and educating the pat ient/family/caregiver and ordering medications, tests, or procedures. Karo Hill MD cc: Sergio Landaverde MD; ; documented in this encounterBlanchard Valley Health System [facility]05[facility] Nurse Note* Dov Torres LPN - 11/02/2021 8:23 AM EDT Additional intake questions: Has the patient had fever, nausea, vomiting, diarrhea, constipation, fatigue for > 1 week? Yes, fatigue Does the patient have a decreased appetite? No Does patient want to see a Electrical Cad Designer? No (yes to any of above refer patient to schedulers for dietitian appointment) ) Does patient have any new or increased numbness or tingling of extremities? No Is patient interested in fertility information? NA Does patient need any prescription refills? No Does patient have an advanced directive in place? Yes, no copy found in [employer] will bring documented in this encounterBlanchard Valley Health System [facility]05[facility] History of Present illness Narrative* Kylee Radford, RT(R) - 11/01/2021 9:00 AM EDT Radiology Service Progress Note DATE OF SERVICE: [...] creatinine assay has traceable calibration to isotope dilution- mass spectrometry. Refer to KDIGO guidelines for clinical interpretation. In patients with unstable renal function, e.g. those with acute kidney injury, the eGFRmay not accurately reflect actual GFR. eGFR- Date Value Ref Range Status 08/11/2021 >60 Final P.O.C.T. RESULTS: POC done: Yes, See Lab Tab November 01, 2021 TREATMENT: N/A PERIPHERAL IV DATA: Ambulatory: A peripheral IV was started in the Left antecubital site with a Angio cath: 22 gauge. RADIOLOGY DEPARTMENT: CT; Exam(s) Completed: Chest Abdomen Pelvis SIGNATURE: RT Ellis(R) PATIENT NAME: Josephine Renee DATE: November 01, 2021 TIME: 12:57 PM documented in this encounterBlanchard Valley Health System [facility]04[facility]20[facility] History of Present illness Narrative* Karo Hill MD - 10/05/2021 8:47 AM EDT [facility] CLINICAL NOTE Department of Hematology and Medical Oncology PATIENT NAME: Josephine Renee 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 INTERIM HISTORY: Nursing notes reviewed; agree with findings as documented. Ms. Renee returns aftercycle 2 of treatment. She reports sporadic episodes of emesis on D5 and D9 of her last treatment cycle, and occasional slight sensation of nausea usually first thing in the morning, both relieved with prochlorperazine. [place] "sensitive" and dry mucous membranes involving the mouth and tongue, lasting about 2 1/2 weeks. Her neck lymphadenopathy has resolved, and she is uncertain whether she can feel a residual abdominal mass. MEDICATIONS: Per EpicCare. REVIEW OF SYSTEMS: As [...] Lymph 1.00 - 4.00 k/uL 0.72 (L) [place]% % 15.3 Abs [place] <0.87 k/uL 0.63 Eosin% % 1.0 Abs [...] which included preparing to see the patient, wfxl-ss-sufh patient care, completing clinical documentation, obtaining and/or reviewing separately obtained history, performing a medically appropriate examination, counseling and educating the pat ient/family/caregiver and ordering medications, tests, or procedures. Karo Hill MD cc: Sergio Landaverde MD; ; documented in this encounterBlanchard Valley Health System [facility]04[facility] Nurse Note* Norah Kaplan RN - 10/05/2021 8:27 AM EDT Additional intake questions: Has the patient had fever, nausea, vomiting, diarrhea, constipation, fatigue for > 1 week? No Does the patient have a decreased appetite? No Does patient want to see a Electrical Cad Designer? No (yes to any of above refer patient to schedulers for dietitian appointment) ) Does patient have any new or increased numbness or tingling of extremities? No Is patient interested in fertility information? No Does patient need any prescription refills? No Does patient have an advanced directive in place? No, Patient referred to Resource Center documented in this encounterBlanchard Valley Health System [facility]03[facility]23[facility] History of Present illness Narrative* Karo Hill MD - 09/07/2021 10:[address] [facility] CLINICAL NOTE Department of Hematology and Medical Oncology PATIENT NAME: Josephine Renee 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 INTERIM HISTORY: Nursing notes reviewed; agree with findings as documented. Ms. Renee returns aftercycle 1 of treatment. She felt transient nausea after treatment for about half a day, then a coupleof morning episodes, relieved with antiemetics. Also notices ongoing fatigue, a bit more pronouncedcompared with before her treatment, but she continues to tolerate normal activity. Her neck lymph nodes have regressed and she does not feel her abdominal mass any longer. MEDICATIONS: Per WebCurfew. REVIEW OF SYSTEMS: As described above. ECOG [...] Lymph 1.00 - 4.00 k/uL 0.93 (L) [place]% % 12.9 Abs [place] <0.87 k/uL 0.77 Eosin% % 1.0 Abs [...] which included preparing to see the patient, tdwx-[id number] patient care, completing clinical documentation, obtaining and/or reviewing separately obtained history, performing a medically appropriate examination, counseling and educating the pat ient/family/caregiver and ordering medications, tests, or procedures. Karo Hill MD cc: Sergio Landaverde MD; ; documented in this encounterBlanchard Valley Health System [facility]03[facility] Nurse Note* Dirk Julio LPN - 09/07/2021 9:37 AM EDT Additional intake questions: Has the patient had fever, nausea, vomiting, diarrhea, constipation, fatigue for > 1 week? Yes, fatigue and Provider Notified Does the patient have a decreased appetite? No Does patient want to see a Electrical Cad Designer? No (yes to any of above refer patient to schedulers for dietitian appointment) ) Does patient have any new or increased numbness or tingling of extremities? No Is patient interested in fertility information? No Does patient need any prescription refills? No Does patient have an advanced directive in place? Yes, no copy found in [facility] Patient [facility] to [facility] documented in this encounterBlanchard Valley Health System [facility]02-22[facility]22 NoteHNO ID: [id number] Author: RT Kareem(R) Service: Nuclear Medicine Author Type: Technologist Type: [...] visit the National Kidney Foundation website at kidney.org/professionals/kdoqi/gfr_calculator. eGFR- Date Value Ref Range Status 07/18/2021 [...] safety can be found using this link: [email or web address]%20Medicine%[email or web address].pdf SIGNATURE: RT Kareem(R) PATIENT NAME: Josephine Renee DATE: August 09, 2021 TIME: 9:52 AM [facility] Author Klaudia Joseph [facility] Note Date/Time August 26, 2024 2:3 5pm [facility] Medical Records Department [address] [place] [id number] Anesthesia Postop Eval I 08/26/241433 MR#: [id number] Acct: [id number] Name: JOSEPHINE RENEE Rep #:[id number] : 1965 59 From: Klaudia Joseph PCP: Dr. Sergio Landaverde MD Status :REG SDC Y Race: C Location: [place] [address] Anesthesia: Postop Eval I Current Vital Signs Temperature: 98.1 F Pulse Rate: 63 Blood Pressure: 108/83 Respiratory Rate: 16 Pulse Ox: 99 Oxygen Delivery Method: Room Air Assessment Airway patent: Yes Spontaneous unlabored respirations: Yes Mental status: Awake and Calm nausea: No Vomiting: No Anesthesia Complication: No Fluid Hydration Crystalloid volume administer (ml): 10 Total IV fluid infused: 10 Progress Note Anesthesia document: Postop Eval 1 completed: Yes 08/26/241434 <Electronically signed by Klaudia Joseph > Date _ Klaudia Joseph Cosigner Signature: Date CC: ~ Signed [facility] Work Phone: Discharge summary Author Benson Sierra [facility] August 03, 2023 10:12am Note Date/Time August 03, 2023 10:12am [facility] Medical Records Department [address] [place] [address] Instructions for Home/Discharge Instructions 08/03/23 1011 MR#: [id number] Acct: [id number] Name: JOSEPHINE RENEE Rep #:[id number] : 1965 58 From: Benson Sierra DPM PCP: Dr. Kushal Landaverde MD Status: REG [facility] Discharge Instructions Diet Discharge Diet: Light diet - advance as tolerated Activity Weight Bearing Status: No weight bearing (No weightbearing left foot) Keep extremity elevated above heart level: Left Leg (Keep left foot elevated) Dressing / Incision Call your doctor if your incision/area has: Continuous Slow Oozing, Sudden Increased Bleeding and Foul Smelling Discharge Call your doctor if you observe: Fever of 101 or Higher, Shortness of breath, Chest pain, Increased palpitations (irregular heartbeat), Calf discomfort and Uncontrolled pain Change Dressing in: do not change dressing Remove Dressing in: do not remove dressing Cleanse incision/area with: Keep Dressing Clean & Dry Follow Up Care Please Follow Up With: Benson Sierra DPM When: 1 week at office ([facility]), sooner if needed. Test Results: Test results from this visit will be discussed in further detail at your follow- up appointment, if applicable. Discharge Plan Admission Attending Provider: Benson Sierra Primary Care Provider: Kushal Landaverde Discharge Orders/Prescriptions Prescriptions: New oxycodone-acetaminophen [Percocet] 5-325 mg tablet 1 tab PO Q6H PRN (Reason: pain) 3 Days Qty: 21 0RF No Action duloxetine [Cymbalta] 20 mg capsule,delayed release(DR/EC) 20 mg PO DAILY cholecalciferol (vitamin D3) [Vitamin D3] 25 mcg (1,000 unit) Capsule 25 mcg PO DAILY [place] 3 Capsule 1,000 mg PO DAILY Vitamin B-12 1,000 mcg Lozenge 1,000 mcg PO QODAY calcium carbonate [Calcium 600] 600 mg calcium (1,500 mg) Tablet 600 mg PO DAILY biotin 10 mg tablet 10 mg PO DAILY Referrals / Follow Up: Kushal Landaverde MD [Primary Care Provider] - Disposition Disposition (needs filled in before D/C Order can be placed): Home, Self Care 08/03/23 1012<Electronically signed by Benson Sierra DPM>Benson Sierra DPM CC: Dr. 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 Encounter for antineoplastic chemotherapy [facility] Diagnosis 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* Diagnosis 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 Encounter for antineoplastic chemotherapy [facility]* Diagnosis 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 Diagnosis 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) [facility] Diagnosis 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* Diagnosis 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 Encounter for antineoplastic chemotherapy [facility]* Diagnosis 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 Encounter for antineoplastic chemotherapy [facility]* Diagnosis 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) [facility] Diagnosis 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 Diagnosis 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) [facility]* Diagnosis Encounter for prophylactic measures, unspecified- Primary documented in this encounter [facility] note* Diagnosis 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 Encounter for prophylactic measures, unspecified documented in this encounter [facility] note* Diagnosis 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 Encounter for antineoplastic chemotherapy Encounter for antineoplastic immunotherapy documented in this encounter [facility] note* Diagnosis 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 Encounter for prophylactic measures, unspecified Encounter for antineoplastic chemotherapy documented in this encounter [facility] note* Diagnosis 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) [facility]* Diagnosis 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 Encounter for prophylactic measures, unspecified documented in this encounter [facility] note* Diagnosis 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 documented in this encounter [facility] note* Diagnosis Vulvar burning- Primary Unspecified symptom associated with female genital organs Vulvar atrophy Atrophy of vulva Vaginal atrophy Postmenopausal atrophic vaginitis Superficial dyspareunia Cyst of ovary, unspecified laterality Abnormal mammogram Abnormal mammogram, unspecified Encounter for screening mammogram for malignant neoplasm of breast Other screening mammogram documented in this encounter [facility] note* Diagnosis Encounter for screening mammogram for malignant neoplasm of breast Other screening mammogram [facility] Diagnosis Encounter for gynecological examination (general) (routine) without abnormal findings- Primary Encounter for screening mammogram for breast cancer Vulvar atrophy Atrophy of vulva Vaginal atrophy Postmenopausal atrophic vaginitis Dyspareunia in female documented in this encounter [facility] note* Diagnosis Vulvar atrophy Atrophy of vulva Vaginal atrophy Postmenopausal atrophic vaginitis Dyspareunia in female documented in this encounter [facility] note* Diagnosis Vulvar atrophy- Primary Atrophy of vulva Vaginal atrophy Postmenopausal atrophic vaginitis Superficial dyspareunia documented in this encounter [facility] noteNo assessment information availableW[facility] Work Phone: Evaluation note* Diagnosis 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 documented in this encounter [facility] note* Diagnosis 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) documented in this encounter [facility] note* Diagnosis Onset Date Resolution Status Pain in left foot [facility] Work Phone: Evaluation note* Diagnosis 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) documented in this encounter [facility] note* Diagnosis 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 documented in this encounter [facility] note* Diagnosis 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 Macrocytosis Other specified diseases of blood and blood-forming organs documented in this encounter [facility] note* Diagnosis Endometrial cancer (HCC)- Primary Malignant neoplasm of corpus uteri, except isthmus Family history of pancreatic cancer Family history of malignant neoplasm of gastrointestinal tract Preop examination Preoperative examination, unspecified documented in this encounter [facility] note* Diagnosis Endometrial cancer (HCC) Malignant neoplasm of corpus uteri, except isthmus Preop examination Preoperative examination, unspecified Endometrial cancer (HCC) Malignant neoplasm of corpus uteri, except isthmus Preop examination Preoperative examination, unspecified documented in this encounter [facility] note* Diagnosis Pre-operative examination- Primary Preoperative examination, unspecified Age-related osteoporosis without current pathological fracture Senile osteoporosis Endometrial cancer (HCC) Malignant neoplasm of corpus uteri, except isthmus 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 Rituximab/bendamustine x 6 cycles. 07/2021-01/2022 (near CR) * Assessment & Plan Note - Estephania Larsen APRN.CNP - 10/20/2024 9:59 AM EDT Associated Problem(s): Hydronephrosis Assessment: hx Creatinine Date Value Ref Range Status 09/22/2024 0.77 0.58 - 0.96 mg/dL Final 07/02/2024 0.73 0.58 - 0.96 mg/dL Final 12/31/2023 0.86 0.58 - 0.96 mg/dL Final 07/04/2023 0.79 0.58 - 0.96 mg/dL Final * Assessment & Plan Note - Estephania Larsen APRN.CNP - 10/20/2024 9:59 AM EDT Associated Problem(s): Age-related osteoporosis without current pathological fracture Assessment: receiving Reclast documented in this encounter [facility] Diagnosis Pre-operative examination- Primary Preoperative examination, unspecified Age-related osteoporosis without current pathological fracture Senile osteoporosis Endometrial cancer (HCC) Malignant neoplasm of corpus uteri, except isthmus 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) Hydronephrosis, unspecified hydronephrosis type Educational circumstances- Primary Educational circumstance Endometrial cancer (HCC) Malignant neoplasm of corpus uteri, except isthmus Preop examination Preoperative examination, unspecified documented in this encounter [facility] Diagnosis Pre-operative examination- Primary Preoperative examination, unspecified Age-related osteoporosis without current pathological fracture Senile osteoporosis Endometrial cancer (HCC) Malignant neoplasm of corpus uteri, except isthmus 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) Hydronephrosis, unspecified hydronephrosis type Endometrial cancer (HCC)- Primary Malignant neoplasm of corpus uteri, except isthmus Post-operative state Other postprocedural status [facility] instructions Additional Instructions Implant Used?: [facility] Phone: Reason for referral (narrative)* Diagnostic Procedure Only (Routine) - Pending Review Specialty Diagnoses / Procedures Referred By Chencho t Referred To Contact [facility] Diagnoses Abnormal mammogram Encounter for screening mammogram for malignant neoplasm of breast Procedures BENJAMIN DIAGNOSTIC BILAT DIAGNOSTIC MAMMOGRAPHY COMPUTER-AIDED DETCJ BI My Borges MD [address] [place] [address] [facility] [address] [place] [address] Referral ID Status Reason Start Date Expiration Date Visits Requested Visits Authorized [id number] Pending Review Auto-Generat ed Referral 02/13/2022 03/15/2023 1 1 * Consult, Test, Treat (Routine) - Authorized Specialty Diagnoses / Procedures Referred By Chencho t Referred To Contact Diagnoses Vulvar burning Procedures CONSULT TO MANAGER LOCAL INFECTIOUS DISEASE OFFICE/OUTPATIENT [facility] 60-74 MINUTES My Borges MD [address] [place] [address] Indira Aranda MD [address] [place] [address] Referral ID Status Reason Start Date Expiration Date Visits Requested Visits Authorized [id number] Authorized PCP Requested Referral Auto-Generate d Referral 02/13/2022 02/13/2023 1 1 * Diagnostic Procedure Only (Routine) - Authorized Specialty Diagnoses / Procedures Referred By Chencho t Referred To Contact [facility] Diagnoses Cyst of ovary, unspecified laterality Procedures PELVIC US [facility] US PELVIC NONOBSTETRIC REAL-TIME IMAGE COMPLETE My Borges MD [address] [place] [address] [facility] [address] [place] [address] Referral ID Status Reason Start Date Expiration Date Visits Requested Visits Authorized [id number] Authorized Auto-Generat ed Referral 02/13/2022 02/13/[address] [facility] for referral (narrative)* Diagnostic Procedure Only (Routine) - Closed Specialty Diagnoses / Procedures Referred By Chencho goodwin Referred To Contact [facility] Diagnoses Encounter for screening mammogram for malignant neoplasm of breast Procedures BEJNAMIN SCREENING SCREENING MAMMOGRAPHY BI 2-VIEW BREAST INC My Frankel MD [address] [place] [address] [facility] [address] [place] [address] Referral ID Status Reason Start Date Expiration Date V isits Requested Visits Authorized [id number] Closed Auto-Generate d Referral 02/15/2022 03/16/[address] [facility] for referral (narrative)* Diagnostic Procedure Only (Routine) - Pending Review Specialty Diagnoses / Procedures Referred By Chencho goodwin Referred To Contact [facility] Diagnoses Encounter for screening mammogram for breast cancer Procedures BENJAMIN SCREENING SCREENING MAMMOGRAPHY BI 2-VIEW BREAST INC My Frankel MD [address] [place] [address] [facility] [address] [place] [id number] Referral ID Status Reason Start Date Expiration Date Visits Requested Visits Authorized [id number] Pending Review Auto-Generat ed Referral 03/17/2022 04/16/[address] [facility] for visit Narrative* Diagnostic Procedure Only (Routine) - Closed Specialty Diagnoses / Procedures Referred By Chencho goodwin Referred To Contact [facility] Diagnoses Encounter for screening mammogram for malignant neoplasm of breast Procedures BENJAMIN SCREENING SCREENING MAMMOGRAPHY BI 2-VIEW BREAST INC My Frankel MD [address] [place] [address] [facility] [address] [place] [address] Referral ID Status Reason Start Date Expiration Date V isits Requested Visits Authorized [id number] Closed Auto-Generate d Referral 02/15/2022 03/16/2023 1 1 [facility] Summary Purpose Family History No Family History Records Found Relationship Condition Age at Onset Recorded Date/T bria grandfather Alcoholism Unknown sister Alcoholism Unknown mother Cerebrovascular accident (CVA) Unknown Depression Unknown father Malignant neoplasm of pancreas Unknown Hypertension Unknown sister Diabetes mellitus Unknown Advance Directives No Advanced Directives Records Found Advance Directive Response Recorded Date/ Time Name of Medical Power of Instrumentation Technologist SPOUSE September 08, 2022 8:19am Living Will Yes September 08, 2022 8:19am Power of Instrumentation Technologist Yes September 08 8:19am Advance Directive Response Recorded Date/ Time Living Will Yes September 08, 2022 7:19am Power of Instrumentation Technologist Yes September 08 7:19am Advance Directive Response Recorded Date/ Time Name of Medical Power of Instrumentation Technologist ELIZABETH MASON July 27, 2023 1:12pm Living Will Yes July 27 1:12pm Power of Instrumentation Technologist Yes July 27, 2023 1:12pm Advance Directive Response Recorded Date/ Time Name of Medical Power of Instrumentation Technologist ELIZABETH MASON July 27, 2023 2:12pm Living Will Yes July 27 2:12pm Power of Instrumentation Technologist Yes July 27, 2023 2:12pm Advance Directive Response Recorded Date/ Time Living Will Yes July 27 2:12pm Power of Instrumentation Technologist Yes July 27, 2023 2:12pm Living Will Yes August 13 025 12:45pm Power of Instrumentation Technologist Yes August 13, 2024 12:45pm Name of Medical Power of Instrumentation Technologist SPOUSE August 13, 2024 12:45pm Advance Directive Response Recorded Date/ Time Living Will Yes July 27 2:12pm Do you have a Healthcare Power of Instrumentation Technologist? Yes July 27, 2023 2:12pm Living Will Yes August 13 025 12:45pm Do you have a Healthcare Power of Instrumentation Technologist? 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 Advance Directive(s) 10/27/2024 3:57 PM Medications Administered Section Inactive Administered Medications - [...] a maximum of 400 mg/hr, Medication Substitution: [facility] preferred product has been replaced with the insurance mandated product Rate/Dose Change 09/07/2021 2:16 PM EDT Rate/Dose Change 09/07/2021 1:43 PM EDT Rate/Dose Change 09/07/2021 1:13 PM EDT Inactive Administered Medications - up to 3 most recent administrations Medication Order MAR Action Action Date Dose Rate Site bendamustine 144 mg in NaCl 0.9% 500 mL (BELRAPZO) 144 mg (90 mg/m2 1.6 m2 Treatment Plan BSA from Recorded weight), INTRAVENOUS, Administer over 30 Minutes, ONCE, 1 dose, On Zoe 09/08/21 at 1430, Approx Total Volume EXP Hazardous Chemotherapy Drug: Use appropriate PPE. Antineoplastic Irritant. Refrigerate. Product dispensed: BELRAPZO New Bag/Syringe/Bottle 09/08/2021 3:49 PM EDT 144 mg dexAMETHasone 10 mg/NS 50 mL (PYXIS) 10 mg ivpb 10 mg, INTRAVENOUS, ONCE, 1 dose, On Zoe 09/08/21 at 1430, Refrigerate. New Bag/Syringe/Bottle 09/08/2021 3:22 [...] mg, INTRAVENOUS, ONCE, 1 dose, On Zoe 12/01/21 at 0830, Refrigerate. New Bag/Syringe/Bottle 12/01/2021 9:35 [...] over 30 Minutes, ONCE, 1 dose, On Sun12/29/21 at 1000, Hazardous Chemotherapy Drug: Use appropriate PPE. Antineoplastic Irritant. Refrigerate. Product dispensed: BELRAPZO New Bag/Syringe/Bottle 12/29/2021 10:55 AM EDT 144 mg dexAMETHasone 10 mg/NS 50 mL (PYXIS) 10 mg ivpb (DECADRON) 10 mg, INTRAVENOUS, ONCE, 1 dose, On Sun12/29/21 at 1000, Refrigerate. 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) Procedures CT CHEST W IVCON DIAGNOSTIC COMPUTED TOMOGRAPHY THORAX W/CONTRAST Karo Hill MD [address] [place] [address] Ct Imaging Referral ID Status Reason Start Date Expiration Date V isits Requested Visits Authorized [id number] Closed Auto-Generate d Referral 10/06/2021 11/04/2021 2 2 Specialty Diagnoses / Procedures Referred By Contac t Referred To Contact CT IMAG[facility] Diagnoses 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) Procedures CT ABD/PEL W IVCON CT ABD & PELVIS W/CONTRAST Karo Hill MD [address] [place], [place] [id number] Ct [facility] Referral ID Status Reason Start Date Expiration Date V isits Requested Visits Authorized [id number] Closed Auto-Generate d Referral 10/06/2021 11/04/2021 1 1 Referral ID Status Reason Start Date Expiration Date Visits Requested Visits Authorized [id number] Pending Review Auto-Generat ed Referral 01/30/2022 12/30/2022 1 1 Referral ID Status Reason Start Date Expiration Date Visits Requested Visits Authorized [id number] Pending Review Auto-Generat ed Referral 01/30/2022 12/30/2022 1 1 Specialty Diagnoses / Procedures Referred By Contac t Referred To Contact CT IMAGING Diagnoses 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) Procedures CT NECK SOFT TISSUE W IVCON CT SOFT TISSUE NECK W/CONTRAST MATERIAL Karo Hill MD [address] [place] [address] [address] [address] [facility] Referral ID Status Reason Start Date Expiration Date Visits Requested Visits Authorized [id number] Pending Review Auto-Generat ed Referral 01/30/2022 12/30/2022 1 1 Referral ID Status Reason Start Date Expiration Date V isits Requested Visits Authorized [id number] Closed Auto-Generate d Referral 01/19/2022 02/17/2022 1 1 Referral ID Status Reason Start Date Expiration Date V isits Requested Visits Authorized [id number] Closed Auto-Generate d Referral 01/19/2022 02/17/2022 1 1 Referral ID Status Reason Start Date Expiration Date V isits Requested Visits Authorized [id number] Closed Auto-Generate d Referral 01/19/2022 02/17/2022 1 1 Specialty Diagnoses / Procedures Referred By Contac t Referred To Contact Diagnoses Encounter for prophylactic measures, unspecified Procedures COVID TREATMENT REFERRAL COVID TREATMENT REFERRAL Karo Hill MD [address] [place] [id number] Referral ID Status Reason Start Date Expiration Date Visits Requested Visits Authorized [id number] Pending Review Auto-Generat ed Referral 02/10/2022 02/10/2023 1 1 Specialty Diagnoses / Procedures Referred By Contac t Referred To Contact CT IMAG[facility] Diagnoses 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) Procedures CT CHEST W IVCON DIAGNOSTIC COMPUTED TOMOGRAPHY THORAX W/CONTRAST Karo Hill MD [address] [place] [address] [address] [place] [address] Referral ID Status Reason Start Date Expiration Date V isits Requested Visits Authorized [id number] Closed Auto-Generate d Referral 08/24/2022 06/25/2023 2 2 Specialty Diagnoses / Procedures Referred By Chencho goodwin Referred To Contact CT IMAG[facility] Diagnoses 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 Chief Complaint SCREENING Chief Complaint SCREENING PAIN IN LEFT FOOT TIGHT ACHILLES TENDON L/RX HERE SCREENING Symptomatic hardware removal with placement of tig Reason for Visit Pain in left foot Chief Complaint SCREENING PAIN IN LEFT FOOT TIGHT ACHILLES TENDON L/RX HERE SCREENING Symptomatic hardware removal with placement of tig NEED ORDER Reason for Visit Pain in left foot Chief Complaint PAIN IN LEFT FOOT TIGHT ACHILLES TENDON L/RX HERE SCREENING Symptomatic hardware removal with placement of tig NEED ORDER Reason for Visit Pain in left foot Chief Complaint SCREENING PAIN IN LEFT FOOT Chief Complaint Admit Date HYDRONEPHROSIS May 30, 2024 3:22pm 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 Febr 2024 9:27am SCREENING July 28, 2024 11:52am Dilation and Curettage Polypectomy August 26, 2024 11:25am Dilation and Curettage Polypectomy August 26, 2024 1:28pm Reason for Visit Admit Date Polyp of cervix July 07, 2024 7 :55am Post-menopausal bleeding July 07, 7:55am Vaginal atrophy July 07, 2024 7 :55am Encounter for routine gynecological exam ination July 07, 2024 7:55am Polyp of cervix July 11, 2024 8 :59am Polyp of cervix July 28, 2024 9:27am Post-menopausal bleeding August 26 11:25am Additional Source Comments INFORMATION SOURCE (unrecogn ized section and content) DATE CREATED AUTHOR 11/01/2019 [facility] DATE CREATED AUTHOR AUTHOR'S ORGANIZ ATION 08/09/2021 [facility] DATE CREATED AUTHOR AUTHOR'S ORGANIZ ATION 01/04/2024 [facility] DATE CREATED AUTHOR AUTHOR'S ORGANIZ ATION 10/21/2024 [facility] DATE CREATED AUTHOR AUTHOR'S ORGANIZ ATION 12/19/2024 [facility] Source Comments (unrecognize d section and content) In the event this informatio n is protected by the Federal Confidentiality of Alcohol and Drug Abuse Patient Records regulations: The Federal rules restrict any use of the information to criminally investigate or prosecute any alcohol or drug abuse patient.[facility] the event this information is protected by the Federal Confidentiality of Alcohol and Drug Abuse Patient Records regulations: The Federal rules restrict any use of the information to criminally investigate or prosecute any alcohol or drug abuse patient.[facility] the event this information is protected by the Federal Confidentiality of Alcohol and Drug Abuse Patient Records regulations: The Federal rules restrict any use of the information to criminally investigate or prosecute any alcohol or drug abuse patient.[facility] the event this information is protected by the Federal Confidentiality of Alcohol and Drug Abuse Patient Records regulations: The Federal rules restrict any use of the information to criminally investigate or prosecute any alcohol or drug abuse patient.[facility] the event this information is protected by the Federal Confidentiality of Alcohol and Drug Abuse Patient Records regulations: The Federal rules restrict any use of the information to criminally investigate or prosecute any alcohol or drug abuse patient.[facility] the event this information is protected by the Federal Confidentiality of Alcohol and Drug Abuse Patient Records regulations: The Federal rules restrict any use of the information to criminally investigate or prosecute any alcohol or drug abuse patient.[facility] the event this information is protected by the Federal Confidentiality of Alcohol and Drug Abuse Patient Records regulations: The Federal rules restrict any use of the information to criminally investigate or prosecute any alcohol or drug abuse patient.[facility] the event this information is protected by the Federal Confidentiality of Alcohol and Drug Abuse Patient Records regulations: The Federal rules restrict any use of the information to criminally investigate or prosecute any alcohol or drug abuse patient.[facility] the event this information is protected by the Federal Confidentiality of Alcohol and Drug Abuse Patient Records regulations: The Federal rules restrict any use of the information to criminally investigate or prosecute any alcohol or drug abuse patient.[facility] the event this information is protected by the Federal Confidentiality of Alcohol and Drug Abuse Patient Records regulations: The Federal rules restrict any use of the information to criminally investigate or prosecute any alcohol or drug abuse patient.[facility] the event this information is protected by the Federal Confidentiality of Alcohol and Drug Abuse Patient Records regulations: The Federal rules restrict any use of the information to criminally investigate or prosecute any alcohol or drug abuse patient.[facility] the event this information is protected by the Federal Confidentiality of Alcohol and Drug Abuse Patient Records regulations: The Federal rules restrict any use of the information to criminally investigate or prosecute any alcohol or drug abuse patient.[facility] the event this information is protected by the Federal Confidentiality of Alcohol and Drug Abuse Patient Records regulations: The Federal rules restrict any use of the information to criminally investigate or prosecute any alcohol or drug abuse patient.[facility] the event this information is protected by the Federal Confidentiality of Alcohol and Drug Abuse Patient Records regulations: The Federal rules restrict any use of the information to criminally investigate or prosecute any alcohol or drug abuse patient.[facility] the event this information is protected by the Federal Confidentiality of Alcohol and Drug Abuse Patient Records regulations: The Federal rules restrict any use of the information to criminally investigate or prosecute any alcohol or drug abuse patient.[facility] the event this information is protected by the Federal Confidentiality of Alcohol and Drug Abuse Patient Records regulations: The Federal rules restrict any use of the information to criminally investigate or prosecute any alcohol or drug abuse patient.[facility] the event this information is protected by the Federal Confidentiality of Alcohol and Drug Abuse Patient Records regulations: The Federal rules restrict any use of the information to criminally investigate or prosecute any alcohol or drug abuse patient.[facility] the event this information is protected by the Federal Confidentiality of Alcohol and Drug Abuse Patient Records regulations: The Federal rules restrict any use of the information to criminally investigate or prosecute any alcohol or drug abuse patient.[facility]In the event this information is protected by the Federal Confidentiality of Alcohol and Drug Abuse Patient Records regulations: The Federal rules restrict any use of the information to criminally investigate or prosecute any alcohol or drug abuse patient.[facility]In the event this information is protected by the Federal Confidentiality of Alcohol and Drug Abuse Patient Records regulations: The Federal rules restrict any use of the information to criminally investigate or prosecute any alcohol or drug abuse patient.[facility]In the event this information is protected by the Federal Confidentiality of Alcohol and Drug Abuse Patient Records regulations: The Federal rules restrict any use of the information to criminally investigate or prosecute any alcohol or drug abuse patient.[facility]In the event this information is protected by the Federal Confidentiality of Alcohol and Drug Abuse Patient Records regulations: The Federal rules restrict any use of the information to criminally investigate or prosecute any alcohol or drug abuse patient.[facility]In the event this information is protected by the Federal Confidentiality of Alcohol and Drug Abuse Patient Records regulations: The Federal rules restrict any use of the information to criminally investigate or prosecute any alcohol or drug abuse patient.[facility] HospitalIn the event this information is protected by the Federal Confidentiality of Alcohol and Drug Abuse Patient Records regulations: The Federal rules restrict any use of the information to criminally investigate or prosecute any alcohol or drug abuse patient.[facility]In the event this information is protected by the Federal Confidentiality of Alcohol and Drug Abuse Patient Records regulations: The Federal rules restrict any use of the information to criminally investigate or prosecute any alcohol or drug abuse patient.[facility] HospitalIn the event this information is protected by the Federal Confidentiality of Alcohol and Drug Abuse Patient Records regulations: The Federal rules restrict any use of the information to criminally investigate or prosecute any alcohol or drug abuse patient.[facility] HospitalIn the event this information is protected by the Federal Confidentiality of Alcohol and Drug Abuse Patient Records regulations: The Federal rules restrict any use of the information to criminally investigate or prosecute any alcohol or drug abuse patient.[facility]In the event this information is protected by the Federal Confidentiality of Alcohol and Drug Abuse Patient Records regulations: The Federal rules restrict any use of the information to criminally investigate or prosecute any alcohol or drug abuse patient.[facility] HospitalIn the event this information is protected by the Federal Confidentiality of Alcohol and Drug Abuse Patient Records regulations: The Federal rules restrict any use of the information to criminally investigate or prosecute any alcohol or drug abuse patient.[facility] HospitalIn the event this information is protected by the Federal Confidentiality of Alcohol and Drug Abuse Patient Records regulations: The Federal rules restrict any use of the information to criminally investigate or prosecute any alcohol or drug abuse patient.[facility] HospitalIn the event this information is protected by the Federal Confidentiality of Alcohol and Drug Abuse Patient Records regulations: The Federal rules restrict any use of the information to criminally investigate or prosecute any alcohol or drug abuse patient.[facility] HospitalIn the event this information is protected by the Federal Confidentiality of Alcohol and Drug Abuse Patient Records regulations: The Federal rules restrict any use of the information to criminally investigate or prosecute any alcohol or drug abuse patient.[facility] HospitalIn the event this information is protected by the Federal Confidentiality of Alcohol and Drug Abuse Patient Records regulations: The Federal rules restrict any use of the information to criminally investigate or prosecute any alcohol or drug abuse patient.[facility] HospitalIn the event this information is protected by the Federal Confidentiality of Alcohol and Drug Abuse Patient Records regulations: The Federal rules restrict any use of the information to criminally investigate or prosecute any alcohol or drug abuse patient.[facility] HospitalIn the event this information is protected by the Federal Confidentiality of Alcohol and Drug Abuse Patient Records regulations: The Federal rules restrict any use of the information to criminally investigate or prosecute any alcohol or drug abuse patient.[facility] HospitalIn the event this information is protected by the Federal Confidentiality of Alcohol and Drug Abuse Patient Records regulations: The Federal rules restrict any use of the information to criminally investigate or prosecute any alcohol or drug abuse patient.[facility] HospitalIn the event this information is protected by the Federal Confidentiality of Alcohol and Drug Abuse Patient Records regulations: The Federal rules restrict any use of the information to criminally investigate or prosecute any alcohol or drug abuse patient.[facility] HospitalIn the event this information is protected by the Federal Confidentiality of Alcohol and Drug Abuse Patient Records regulations: The Federal rules restrict any use of the information to criminally investigate or prosecute any alcohol or drug abuse patient.[facility] HospitalIn the event this information is protected by the Federal Confidentiality of Alcohol and Drug Abuse Patient Records regulations: The Federal rules restrict any use of the information to criminally investigate or prosecute any alcohol or drug abuse patient.[facility] HospitalIn the event this information is protected by the Federal Confidentiality of Alcohol and Drug Abuse Patient Records regulations: The Federal rules restrict any use of the information to criminally investigate or prosecute any alcohol or drug abuse patient.[facility] HospitalIn the event this information is protected by the Federal Confidentiality of Alcohol and Drug Abuse Patient Records regulations: The Federal rules restrict any use of the information to criminally investigate or prosecute any alcohol or drug abuse patient.[facility] HospitalIn the event this information is protected by the Federal Confidentiality of Alcohol and Drug Abuse Patient Records regulations: The Federal rules restrict any use of the information to criminally investigate or prosecute any alcohol or drug abuse patient.[facility] HospitalIn the event this information is protected by the Federal Confidentiality of Alcohol and Drug Abuse Patient Records regulations: The Federal rules restrict any use of the information to criminally investigate or prosecute any alcohol or drug abuse patient.[facility] HospitalIn the event this information is protected by the Federal Confidentiality of Alcohol and Drug Abuse Patient Records regulations: The Federal rules restrict any use of the information to criminally investigate or prosecute any alcohol or drug abuse patient.[facility] HospitalIn the event this information is protected by the Federal Confidentiality of Alcohol and Drug Abuse Patient Records regulations: The Federal rules restrict any use of the information to criminally investigate or prosecute any alcohol or drug abuse patient.[facility] HospitalIn the event this information is protected by the Federal Confidentiality of Alcohol and Drug Abuse Patient Records regulations: The Federal rules restrict any use of the information to criminally investigate or prosecute any alcohol or drug abuse patient.[facility] HospitalIn the event this information is protected by the Federal Confidentiality of Alcohol and Drug Abuse Patient Records regulations: The Federal rules restrict any use of the information to criminally investigate or prosecute any alcohol or drug abuse patient.[facility] HospitalIn the event this information is protected by the Federal Confidentiality of Alcohol and Drug Abuse Patient Records regulations: The Federal rules restrict any use of the information to criminally investigate or prosecute any alcohol or drug abuse patient.[facility] HospitalIn the event this information is protected by the Federal Confidentiality of Alcohol and Drug Abuse Patient Records regulations: The Federal rules restrict any use of the information to criminally investigate or prosecute any alcohol or drug abuse patient.[facility] HospitalIn the event this information is protected by the Federal Confidentiality of Alcohol and Drug Abuse Patient Records regulations: The Federal rules restrict any use of the information to criminally investigate or prosecute any alcohol or drug abuse patient.[facility] HospitalIn the event this information is protected by the Federal Confidentiality of Alcohol and Drug Abuse Patient Records regulations: The Federal rules restrict any use of the information to criminally investigate or prosecute any alcohol or drug abuse patient.[facility] HospitalIn the event this information is protected by the Federal Confidentiality of Alcohol and Drug Abuse Patient Records regulations: The Federal rules restrict any use of the information to criminally investigate or prosecute any alcohol or drug abuse patient.[facility] HospitalIn the event this information is protected by the Federal Confidentiality of Alcohol and Drug Abuse Patient Records regulations: The Federal rules restrict any use of the information to criminally investigate or prosecute any alcohol or drug abuse patient.[facility] HospitalIn the event this information is protected by the Federal Confidentiality of Alcohol and Drug Abuse Patient Records regulations: The Federal rules restrict any use of the information to criminally investigate or prosecute any alcohol or drug abuse patient.[facility] HospitalIn the event this information is protected by the Federal Confidentiality of Alcohol and Drug Abuse Patient Records regulations: The Federal rules restrict any use of the information to criminally investigate or prosecute any alcohol or drug abuse patient.[facility] HospitalIn the event this information is protected by the Federal Confidentiality of Alcohol and Drug Abuse Patient Records regulations: The Federal rules restrict any use of the information to criminally investigate or prosecute any alcohol or drug abuse patient.[facility] HospitalIn the event this information is protected by the Federal Confidentiality of Alcohol and Drug Abuse Patient Records regulations: The Federal rules restrict any use of the information to criminally investigate or prosecute any alcohol or drug abuse patient.[facility] HospitalIn the event this information is protected by the Federal Confidentiality of Alcohol and Drug Abuse Patient Records regulations: The Federal rules restrict any use of the information to criminally investigate or prosecute any alcohol or drug abuse patient.[facility] HospitalIn the event this information is protected by the Federal Confidentiality of Alcohol and Drug Abuse Patient Records regulations: The Federal rules restrict any use of the information to criminally investigate or prosecute any alcohol or drug abuse patient.[facility] HospitalIn the event this information is protected by the Federal Confidentiality of Alcohol and Drug Abuse Patient Records regulations: The Federal rules restrict any use of the information to criminally investigate or prosecute any alcohol or drug abuse patient.[facility] Reason for Visit (unrecogniz ed section and content) Reason Comments Established Patient Specialty Diagnoses / Procedures Referred By Contac t Referred To Contact Diagnoses 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) Procedures INJECTION, RITUXIMAB, 10 MG INJECTION, RITUXIMAB 10 MG AND HYALURONIDASE INJ., BELRAPZO / BENDAMUSTINE [place] [address] [place] [address] [facility] [address] [place] [address] Referral ID Status Reason Start Date Expiration Date V isits Requested Visits Authorized [id number] Authorized 08/02/2021 01/19/2022 [address] Specialty Diagnoses / Procedures Referred By Contac t Referred To Contact CT IMAGING Diagnoses 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) Procedures CT CHEST W IVCON DIAGNOSTIC COMPUTED TOMOGRAPHY THORAX W/CONTRAST Karo Hill MD [address] [place], [place] [id number] [facility] Referral ID Status Reason Start Date Expiration Date V isits Requested Visits Authorized [id number] Closed Auto-Generate d Referral 10/06/2021 11/04/2021 2 2 Reason Comments Established Patient Reason Comments Treatment Planning Evusheld Referral ID Status Reason Start Date Expiration Date V isits Requested Visits Authorized [id number] Closed Auto-Generate d Referral 01/19/2022 02/17/2022 [address] Reason Comments Treatment Planning Evusheld Reason Comments Follow Up Pain with intercours e Reason Comments Patient Question Care Coordination Reason Comments Well Woman Reason Onset Date Comments Refill Request 05/15/2022 Reason Comments vaginal pain 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 Reason Comments Medication Problem Specialty Diagnoses / Procedures Referred By Contac t Referred To Contact CT IMAGING Diagnoses 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) Procedures CT CHEST W IVCON DIAGNOSTIC COMPUTED TOMOGRAPHY THORAX W/CONTRAST Karo Hill MD [address] [place] [address] [address] [place] [address] Referral ID Status Reason Start Date Expiration Date V isits Requested Visits Authorized [id number] Closed Auto-Generate d Referral 08/24/2022 06/25/2023 2 2 Specialty Diagnoses / Procedures Referred By Contsobeida t Referred To Contact CT IMAGING Diagnoses 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 Vaughn on 09/22/24. I sent her a release of information to obtain Pathology slides from [facility]- ph.[phone]/fax. [phone] (08/26/24 [id number]). Ultrasound done @ [facility] p. [phone]/fax. [phone]. Reason Comments Patient Navigation Requested Pathology slides from [facility] ([phone]) are currently @ [facility]. Slides will be sent to [facility] once returned. 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 Reason Comments Consult Reason Onset Date Comments Pre-Op Teaching 10/22/2024 Reason Comments Post-Op Visit Care Teams (unrecognized sec tion and content) Program Writer Relationship Specialty Start Date End Date Sergio Landaverde MD [address] [facility] [address] [place] [address] PCP - General Family Practice 07/25/21 Program Writer Relationship Specialty Start Date End Date Sergio Landaverde MD [address] [facility] [address] [place] [address] PCP - General Family Practice 07/25/21 Program Writer Relationship Specialty Start Date End Date Sergio Landaverde MD [address] [facility] [address] [place] [address] PCP - General Family Practice 07/25/21 Program Writer Relationship Specialty Start Date End Date Sergio Landaverde MD [address] [facility] [address] [place] [address] PCP - General Family Practice 07/25/21 Program Writer Relationship Specialty Start Date End Date Sergio Landaverde MD [address] [facility] [address] [place] [address] PCP - General Family Practice 07/25/21 Program Writer Relationship Specialty Start Date End Date Sergio Landaverde MD [address] [facility] [address] [place] [address] PCP - General Family Practice 07/25/21 Program Writer Relationship Specialty Start Date End Date Sergio Landaverde MD [address] [facility] [address] [place] [address] PCP - General Family Practice 07/25/21 Program Writer Relationship Specialty Start Date End Date Sergio Landaverde MD [address] [facility] [address] [place] [address] PCP - General Family Practice 07/25/21 Program Writer Relationship Specialty Start Date End Date Sergio Landaverde MD [address] [facility] [address] [place] [address] PCP - General Family Practice 07/25/21 Program Writer Relationship Specialty Start Date End Date Sergio Landaverde MD [address] [facility] [address] [place] [address] PCP - General Family Practice 07/25/21 Program Writer Relationship Specialty Start Date End Date Sergio Landaverde MD [address] [facility] [address] [place] [address] PCP - General Family Practice 07/25/21 Program Writer Relationship Specialty Start Date End Date Sergio Landaverde MD [address] [facility] [address] [place] [address] PCP - General Family Practice 07/25/21 Program Writer Relationship Specialty Start Date End Date Sergio Landaverde MD [address] [facility] [address] [place] [address] PCP - General Family Practice 07/25/21 Program Writer Relationship Specialty Start Date End Date Sergio Landaverde MD [address] [facility] [address] [place] [address] PCP - General Family Practice 07/25/21 Program Writer Relationship Specialty Start Date End Date Sergio Landaverde MD [address] [facility] [address] [place] [address] PCP - General Family Practice 07/25/21 Program Writer Relationship Specialty Start Date End Date Sergio Landaverde MD [address] [facility] [address] [place] [address] PCP - General Family Practice 07/25/21 Program Writer Relationship Specialty Start Date End Date Sergio Landaverde MD [address] [facility] [address] [place] [address] PCP - General Family Practice 07/25/21 Program Writer Relationship Specialty Start Date End Date Sergio Landaverde MD [address] [facility] [address] [place] [address] PCP - General Family Practice 07/25/21 Program Writer Relationship Specialty Start Date End Date Sergio Landaverde MD [address] [facility] [address] [place] [address] PCP - General Family Practice 07/25/21 Program Writer Relationship Specialty Start Date End Date Sergio Landaverde MD [address] [facility] [address] [place] [address] PCP - General Family Practice 07/25/21 Program Writer Relationship Specialty Start Date End Date Sergio Landaverde MD [address] [facility] [address] [place] [address] PCP - General Family Practice 07/25/21 Program Writer Relationship Specialty Start Date End Date Sergio Landaverde MD [address] [facility] [address] [place] [address] PCP - General Family Practice 07/25/21 Program Writer Relationship Specialty Start Date End Date Sergio Landaverde MD [address] [facility] [address] [place] [address] PCP - General Family Medicine 07/25/21 Program Writer Relationship Specialty Start Date End Date Sergio Landaverde MD [address] [facility] [address] [place] [address] PCP - General Family Medicine 07/25/21 Program Writer Relationship Specialty Start Date End Date Sergio Landaverde MD [address] [facility] [address] [place] [address] PCP - General Family Medicine 07/25/21 Program Writer Relationship Specialty Start Date End Date Sergio Landaverde MD [address] [facility] [address] [place] [address] PCP - General Family Medicine 07/25/21 Program Writer Relationship Specialty Start Date End Date Sergio Landaverde MD [address] [facility] [address] [place] [address] PCP - General Family Medicine 07/25/21 Program Writer Relationship Specialty Start Date End Date Sergio Landaverde MD [address] [facility] [address] [place] [address] PCP - General Family Medicine 07/25/21 Program Writer Relationship Specialty Start Date End Date Sergio Landaverde MD [address] [facility] [address] [place] [address] PCP - General Family Medicine 07/25/21 Team Status: Active Member Role Status Dates Dr. Kushal Landaverde MD Family Provider Active Dr. Kushal Landaverde MD Primary Care Provider Activ e Team Status: Inactive Member Role Status Dates Dr. Kushal Landaverde MD Primary Care Provider Activ e Dr. Benson Sierra DPM Attending Provider, Bhumi bills Provider Active Program Writer Relationship Specialty Start Date End Date Sergio Landaverde MD [address] [facility] [address] [place] [address] PCP - General Family Medicine 07/25/21 Program Writer Relationship Specialty Start Date End Date Sergio L[facility]verde MD [facility] [address] [address] PCP - General Family Medicine 07/25/21 Team Status: Inactive Member Role Status Dates Dr. Kushal Landaverde MD Primary Care Provider Activ e Garcia Torres MD Attending Provider, Referring Provide r Active Team Status: Inactive Member Role Status Dates Dr. Kushal Landaverde MD Primary Care Provider, Attending Provider, Referring Provider Active Team Status: Active Member Role Status Dates Dr. Kushal Landaverde MD Primary Care Provider Activ e Dr. Benson Sierra DPM Attending Provider, Referrin g Provider Active Team Status: Active Member Role Status Dates Dr. Kushal Landaverde MD Primary Care Provider, Attending Provider, Referring Provider Active Team Status: Active Member Role Status Dates Dr. Sergio Landaverde MD Family Provider Active Dr. Sergio Landaverde MD Primary Care Provider Acti ve Team Status: Inactive Member Role Status Dates Dr. Sergio Landaverde MD Primary Care Provider Acti ve Dr. Benson Sierra DPM Attending Provider, Referrin g Provider Active Team Status: Inactive Member Role Status Dates Dr. Sergio Landaverde MD Primary Care Provider, Attending Provider, Referring Provider Active Program Writer Relationship Specialty Start Date End Date Sergio Landaverde MD PCP - General Family Medicine 07/25/21 Marychuy Juárez RN Specialty Warehouse Helper Hematology/Oncology 07/31/23 Program Writer Relationship Specialty Start Date End Date Sergio Landaverde MD PCP - General Family Medicine 07/25/21 Marychuy Juárez RN Specialty Warehouse Helper Hematology/Oncology 07/31/23 Program Writer Relationship Specialty Start Date End Date Sergio Landaverde MD PCP - General Family Medicine 07/25/21 Marychuy Juárez, RN Specialty [employer] Hematology/Oncology 07/31/23 Program Writer Relationship Specialty Start Date End Date Sergio Landaverde MD PCP - General Family Medicine 07/25/21 Marychuy Juárez RN Specialty Warehouse [employer] Hematology/Oncology 07/31/23 Program Writer Relationship Specialty Start Date End Date Sergio Landaverde MD PCP - General Family Medicine 07/25/21 [place] [address] [place] [address] Hematology/Oncology 07/02/24 Program Writer Relationship Specialty Start Date End Date Sergio Landavered MD PCP - General Family Medicine 07/25/21 [place] [address] [place] [address] Hematology/Oncology 07/02/24 Team Status: Active Member Role Status Dates Dr. Sergio Landaverde MD Primary Care Provider Acti ve Team Status: Inactive Member Role Status Dates Dr. Sergio Landaverde MD Primary Care Provider Acti ve Start: May 30, 2024 End: May 30, 2024 Dr. Sergio Landaverde MD Attending Provider Active Start: May 30, 2024 End: May 30, 2024 Dr. Sergio Landaverde MD Referring Provider Active Start: May 30, 2024 End: May 30, 2024 Team Status: Inactive Member Role Status Dates Dr. Sergio Landaverde MD Primary Care Provider Acti ve Start: July 07, 2024 End: July 07, 2024 Dr. Sergio Landaverde MD Referring Provider Active Start: July 07, 2024 End: July 07, 2024 DANISH Elliott Attending Provider Active Start: July 07, 2024 End: July 07, 2024 Team Status: Active Member Role Status Dates DANISH Elliott Attending Provider Active Start: July 07, 2024 DANISH Elliott Referring Provider Active Start: July 07, 2024 Team Status: Inactive Member Role Status Dates Dr. Sergio Landaverde MD Primary Care Provider Acti ve Start: July 11, 2024 End: July 11, 2024 Dr. Sergio Landaverde MD Referring Provider Active Start: July 11, 2024 End: July 11, 2024 Dr. Gisel Gilmore DO Attending Provider Activ e Start: July 11, 2024 End: July 11, 2024 Team Status: Inactive Member Role Status Dates Dr. Sergio Landaverde MD Primary Care Provider Acti ve Start: July 14, 2024 End: July 14, 2024 DANISH Elliott Attending Provider Active Start: July 14, 2024 End: July 14, 2024 DANISH Elliott Referring Provider Active Start: July 14, 2024 End: July 14, 2024 Team Status: Inactive Member Role Status Dates Dr. Sergio Landaverde MD Primary Care Provider Acti ve Start: July 28, 2024 End: July 28, 2024 Dr. Sergio Landaverde MD Referring Provider Active Start: July 28, 2024 End: July 28, 2024 Dr. Gisel Gilmore DO Attending Provider Activ e Start: July 28, 2024 End: July 28, 2024 Team Status: Inactive Member Role Status Dates Dr. Sergio Landaverde MD Primary Care Provider Acti ve Start: July 28, 2024 End: July 28, 2024 DANISH Elliott Attending Provider Active Start: July 28, 2024 End: July 28, 2024 DANISH Elliott Referring Provider Active Start: July 28, 2024 End: July 28, 2024 Team Status: Inactive Member Role Status Dates Dr. Sergio Landaverde MD Primary Care Provider Acti ve Start: August 26, 2024 End: August 26, 2024 Dr. Gisel Gilmore DO Attending Provider Activ e Start: August 26, 2024 End: August 26, 2024 Dr. Gisel Gilmore , DO Referring Provider Activ e Start: August 26, 2024 End: August 26, 2024 Team Status: Active Member Role Status Dates Dr. Sergio Landaverde MD Primary Care Provider Acti ve Start: August 26, 2024 Dr. Gisel Gilmore , DO Attending Provider Activ e Start: August 26, 2024 Dr. Gisel Gilmore , DO Referring Provider Activ e Start: August 26, 2024 Dr. Gisel Gilmore , DO Other Provider Active Start: August 26, 2024 Team Status: Inactive Member Role Status Dates DANISH Elliott Attending Provider Active Start: July 07, 2024 End: July 07, 2024 DANISH Elliott Referring Provider Active Start: July 07, 2024 End: July 07, 2024 Program Writer Relationship Specialty Start Date End Date Sergio Landaverde MD PCP - General Family Medicine 07/25/21 [place] [address] [place], [place] [id number] Hematology/Oncology 07/02/24 Program Writer Relationship Specialty Start Date End Date Sergio Landaverde MD PCP - General Family Medicine 07/25/21 [place] [address] [place] [address] Hematology/Oncology 07/02/24 Program Writer Relationship Specialty Start Date End Date Sergio Landaverde MD PCP - General Family Medicine 07/25/21 [place] [address] [place] [address] Hematology/Oncology 07/02/24 Program Writer Relationship Specialty Start Date End Date Sergio Landaverde MD PCP - General Family Medicine 07/25/21 [place] [address] [place] [address] Hematology/Oncology 07/02/24 Program Writer Relationship Specialty Start Date End Date Sergio Landaverde MD PCP - General Family Medicine 07/25/21 [place] [address] [place] [address] Hematology/Oncology 07/02/24 Program Writer Relationship Specialty Start Date End Date Sergio Landaverde MD PCP - General Family Medicine 07/25/21 [place] [address] [place] [address] Hematology/Oncology 07/02/24 Program Writer Relationship Specialty Start Date End Date Sergio Landaverde MD PCP - General Family Medicine 07/25/21 [place] [address] [place] [address] Hematology/Oncology 07/02/24 Program Writer Relationship Specialty Start Date End Date Sergio Landaverde MD PCP - General Family Medicine 07/25/21 [place] [address] [place] [address] Hematology/Oncology 07/02/24 Katrina Melchor, RN Specialty Warehouse [employer]per Hematology/Oncology 10/02/24 Program Writer Relationship Specialty Start Date End Date Sergio Landaverde MD PCP - General Family Medicine 07/25/21 [place] [address] [place] [id number] Hematology/Oncology 07/02/24 Katrina Melchor RN Specialty Warehouse [employer] Hematology/Oncology 10/02/24 Program Writer Relationship Specialty Start Date End Date Sergio Landaverde MD PCP - General Family Medicine 07/25/21 [place] [address] [place] [address] Hematology/Oncology 07/02/24 Katrina Melchor RN Specialty Warehouse [employer] Hematology/Oncology 10/02/24 Program Writer Relationship Specialty Start Date End Date Sergio Landaverde MD PCP - General Family Medicine 07/25/21 [place] [address] [place] [address] Hematology/Oncology 07/02/24 Katrina Melchor RN Specialty Warehouse [employer] Hematology/Oncology 10/02/24 Program Writer Relationship Specialty Start Date End Date Sergio Landaverde MD PCP - General Family Medicine 07/25/21 [place] [address] [place] [address] Hematology/Oncology 07/02/24 Katrina Melchor RN Specialty Warehouse [employer] Hematology/Oncology 10/02/24 Program Writer Relationship Specialty Start Date End Date Sergio Landaverde MD PCP - General Family Medicine 07/25/21 [place] [address] [place] [address] Hematology/Oncology 07/02/24 Katrina Melchor RN Specialty Warehouse [employer]per Hematology/Oncology 10/02/24 Program Writer Relationship Specialty Start Date End Date Sergio Landaverde MD PCP - General Family Medicine 07/25/21 [place] [address] [place] [address] Hematology/Oncology 07/02/24 Katrina Melchor RN Specialty Warehouse [employer]per Hematology/Oncology 10/02/24 Goals (unrecognized section and content) Goals may be documented in a n alternate sectionGoals may be documented in an alternate sectionGoals may be documented in an alternate section FOR RECORDS PERTAINING TO PATIENTS WHO ARE [...] BE BASED ON THE PRIMARY CLINICAL RECORDS. [facility] provides no warranty or guarantee of the accuracy or completeness of information in this document.
== END | disposition home or self-care (01) ==
LOC: MTLAB 09:37
PROVIDERS: PCP Family Medicine; Referring Provider Family Medicine; Visit Provider Family Medicine
DX: M81.0 Age-related osteoporosis without current pathological fracture (principal)
CPT/HCPCS: 36415; 80048; 83735; 83970; 84443

== ENCOUNTER 2025-01-22 10:00 | Outpatient (RCR) | payer BC, SELFPAY ==
--- NOTE | 2025-01-22 10:43 | HP.PTEVAL ---
Patient's Visit Information Visit Information Visit Information: AYDIN HUERTA is a 59 year old F referred to Physical Therapy by Dr. Jose Landaverde MD with a diagnosis of Ankle. Date of Evaluation: 01/22/25 Physical Therapist: Suzi Giraldo DPT Visit Plan Frequency: 1x/Week Duration: 1 Week Plan: Patient was given stretching HEP Subjective Subjective: Patient reports bunion surgery about 1.5 years ago with a boot on the left- and then another surgery- and now she can't lift her left toes off the ground. She feels its affecting her hip due to her gait pattern. She also started having big toe pain 2-4 weeks ago. She does not have pain in the ankle it just doesn't move very well. The hip bothers her on/off depending on her walking schedule. Before all of this she had full mobility in the ankle. She does have N/T in the toes that comes and goes. In the big toe and the few toes will wake her up at night. No pain or issues in the calf issues. She catches her toes- no falls currently but does worry about as she gets older. She can't run anymore due to the floppyness- can't walk fast. She does not exercise on a consistent basis. No recent MRI or x-rays PMHx: non hodkins lymphoma cancer, uterine cancer. Meds: duloxtine Objective Objective: Posture: fair throughout session Gait: no deviation noted HR: able TR: visible but decreased by 50% on left SLS: 30 sec without LOB ROM: WNL with the exception of left DF: neutral Strength: Core: fair, Hip: 4+/5, Knee: 5/5 Ankle: DF: 4+/5 in available range, PF: 5/5 Flex: Gastroc: severe, Soleus: severe, Hamstring: moderate Palpation: not tender to touch Balance/Special Test Scores Lower Extremity Functional Score: 61 Goals Goal 1:: Patient will be I with HEP Goal Time Frame: 1 Week Rehabilitation Potential Physical Therapy Diagnosis: Patient presents with decreased ROM of the left ankle leading to abnormal gait Rehabilitation Potential: Good Anticipated Interventions Therapeutic Exercise to Include: Strength training, Coordination and Flexibilty training Text: Thank you for the opportunity to evaluate your patient. For Medicare and Medicare HMO plans, please review the plan of care and approve it. It will need to be FAXED BACK to us at [phone] for Medicare purposes. For Medicare only, by signing this I certify the plan of care. Please let me know if there are questions or concerns regarding this plan of care. Physician Signature: Date:
--- NOTE | 2025-01-22 10:43 | HP.PTDCSUM ---
Discharge Summary D/C summary: It has been my pleasure to treat AYDIN HUERTA referred by Dr. Jose Landaverde MD, with the diagnosis of Ankle for a total of 1 visit(s). Discharge Date: Please see the following information for a summary of their discharge status. Goals Goal 1:: Patient will be I with HEP Plan Plan: Patient was given stretching HEP D/C Information d/c sentence: If there are questions or concerns regarding this patient's physical therapy, please feel free to call me at [phone]. Thank you for the referral of this patient. Sincerely, Suzi Giraldo, [place] Balance/Gait/Functional tests Balance/Special Test Scores Lower Extremity Functional Score: 61
== END 2025-01-22 19:00 | disposition home or self-care (01) ==
LOC: PT 10:00
PROVIDERS: PCP Family Medicine; Referring Provider Family Medicine; Visit Provider Family Medicine
DX: M76.62 Achilles tendinitis, left leg (principal)
CPT/HCPCS: 97162

== ENCOUNTER → 2025-03-29 | Outpatient (CLI) | payer BC, SELFPAY | END | disposition home or self-care (01) | PROVIDERS: PCP Family Medicine; Referring Provider Nurse Practitioner Family; Visit Provider Nurse Practitioner Family | DX: R35.0 Frequency of micturition (principal) | CPT/HCPCS: 87086; 87088 ==